=== PATIENT | male | born 1955 | race Caucasian/White ===

== ENCOUNTER 2023-02-01 11:56 | Outpatient (OUT) | payer MEDICARE, OTHER, SELFPAY ==
[2023-02-01 12:37] LABS: Anion Gap 12.7; Calcium 10.3 mg/dL (8.5-10.1); Carbon Dioxide 28.9 mmol/L (21.0-32.0); Chloride 99 mmol/L (98-107); Estimated GFR (African America >60 (>=60); Estimated GFR (Non-African Ame >60 (>=60); Glucose 151 mg/dL (74-106); Potassium 3.6 mmol/L (3.5-5.1); Sodium 137 mmol/L (136-145)
== END 2023-02-01 11:57 | disposition home or self-care (01) ==
LOC: LAB 12:02
PROVIDERS: PCP Family Medicine; Visit Provider Nurse Practitioner Family
DX: I10 Essential (primary) hypertension (principal)
CPT/HCPCS: 36415; 80048

== ENCOUNTER 2023-02-28 09:23 | Outpatient (OUT) | payer MEDICARE, OTHER, SELFPAY ==
--- NOTE | 2023-02-28 09:52 | MR_ITS ---
The [address] [address] Patient Name: CORNEL GIL MRN: [id number] date: 1955 Sex: M Assigned Patient Location: MRI Current Patient Location: MRI Accession/Order Number: [id number] Exam Date: 02/28/2023 09:52 Report Date: 03/01/2023 12:21 At the request of: ALYSA Small APLING Procedure: MR wrist RT wo con HISTORY: Pain along the medial aspect of the right wrist for the past month. No known injury. Internal derangement of right wrist. MR wrist RT wo con: 02/28/2023 9:52 AM EDT COMPARISON: None. TECHNIQUE: Multiplanar, multisequence MRI images of the wrist were obtained. FINDINGS: Several images are degraded by motion artifact. LIGAMENTS AND TFCC: The scapholunate ligament complex and lunotriquetral ligament appear intact. The triangular fibrocartilage complex appears grossly intact. BONES AND JOINTS: The bone marrow signal intensity appears age appropriate. There appear to be at least mild-moderate degenerative changes of the first carpometacarpal joint and probable mild degenerative changes of the triscaphe joint. There is moderate subcortical cystic change involving the fourth metacarpal head/neck at the edge of the egqid-nu-vaze. There appear to be mild to moderate degenerative changes of the triquetrum-pisiform joint and there is a small amount of fluid within the joint and a joint recess proximal to this region. TENDONS: The tendons of the wrist appear grossly within normal limits without evidence of significant tendinopathy or tenosynovitis. CARPAL TUNNEL: The visualized median nerve appears grossly within normal limits and no space-occupying mass is seen in the carpal tunnel. MUSCLES AND SOFT TISSUES: The visualized musculature appears grossly within normal limits in signal intensity. Within the soft tissues along the volar aspect of the radioscaphoid joint deep to the flexor carpi radialis tendon and adjacent to the radial artery there is a mildly loculated cystlike focus. This measures 7 x 9 x 13 mm in AP, transverse, and craniocaudal dimensions respectively. MR/MR wrist RT wo con IMPRESSION: 1. 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 There also appear to be probable mild degenerative changes of the triscaphe joint. 2. No ligament injury or tear of the TFCC is seen. 3. There is a mildly complex ganglion cyst along the volar aspect of the radioscaphoid joint. 4. Please note that several images of this examination are degraded by motion artifact. Electronically authenticated by: CESARIO TOWNSEND Date: 03/01/2023 12:21
== END 2023-02-28 09:24 | disposition home or self-care (01) ==
PROVIDERS: PCP Family Medicine; Visit Provider Nurse Practitioner Family
DX: M24.9 Joint derangement, unspecified (principal); M18.11 Unilateral primary osteoarthritis of first carpometacarpal joint, right hand; M19.041 Primary osteoarthritis, right hand; M67.431 Ganglion, right wrist
CPT/HCPCS: 73221

== ENCOUNTER 2024-04-17 12:25 | Outpatient (OUT) | payer MEDICARE, OTHER, SELFPAY ==
--- OUTSIDE RECORDS SUMMARY | 2024-04-17 12:37 | XMS_ITS | CCD ---
Author Organization [facility] Care Team Providers Care Contact Lens Edge Buffer Name Role Phone JACOB MCKEON Primary Care Unavailable JACOB MCKEON Referring Unavailable ALGHOTHANI, MOHAMAD Admitting Unavailable ALGHOTHANI, MOHAMAD Attending Unavailable JACOB MCKEON Primary Care Unavailable JACOB MCKEON Referring Unavailable MASROOR, JOSE R Admitting Unavailable MASROOR, JOSE R Attending Unavailable JACOB MCKEON Primary Care Unavailable JACOB MCKEON Referring Unavailable MASROOR, JOSE R Admitting Unavailable MASROOR, JOSE R Attending Unavailable JACOB MCKEON Referring Unavailable JACOB MCKEON Primary Care Unavailable MASROOR, JOSE R Admitting Unavailable MASROOR, JOSE R Attending Unavailable Cass Juárez Unavailable Mary Ontiveros Unavailable Jacob Mckeon Unavailable DR CHRIS VILLATORO Consulting Unavailable MCKEON, DR JACOB Jimenez Primary Care Unavailable MCKEON, DR JACOB Jimenez Attending Unavailable MCKEON, DR JACOB Jimenez Admitting Unavailable MCKEON, DR JACOB Jimenez Consulting Unavailable JUAREZ, CINDY Admitting Unavailable JUAREZ, CINDY Consulting Unavailable JUAREZ, CINDY Attending Unavailable LINDA, DR JACOB Jimenez Primary Care Unavailable CARRI, DR ABDI Attending Unavailable JUAREZ, CINDY Consulting Unavailable MCKEON, DR JACOB Jimenez Primary Care Unavailable CARRI, DR ABDI Admitting Unavailable JUAREZ, CINDY Attending Unavailable JUAREZ, CINDY Admitting Unavailable JUAREZ, CINDY Consulting Unavailable LINDA, DR JACOB Jimenez Primary Care Unavailable EDILBERTO, MARCELINO Admitting Unavailable EDILBERTO, MARCELINO Consulting Unavailable MARCELINO STERN Attending Unavailable LINDA, DR JACOB Jimenez Primary Care Unavailable MCKEON, DR JACOB Jimenez Primary Care Unavailable EDILBERTO, MARCELINO Admitting Unavailable EDILBERTO, MARCELINO Attending Unavailable EDILBERTO, MARCELINO Admitting Unavailable EDILBERTO, MARCELINO Attending Unavailable ZIEBSHARI, DR CHRIS Robison Consulting Unavailable MCKEON, DR JACOB Jimenez Primary Care Unavailable EDILBERTO, MARCELINO Consulting Unavailable ALGHOTHANI, MOHAMAD Consulting Unavailable ALGHOTHANI, MOHAMAD Attending Unavailable ALGHOTHANI, MOHAMAD Admitting Unavailable MCKEON, DR JACOB Jimenez Primary Care Unavailable ALGHOTHANI, MOHAMAD Consulting Unavailable ALGHOTHANI, MOHAMAD Attending Unavailable ALGHOTHANI, MOHAMAD Admitting Unavailable MCKEON, DR JACOB Jimenez Primary Care Unavailable REQUEST, DR ISABEL LISTED Consulting Unavaila ble REQUEST, DR ISABEL LISTED Attending Unavaila ble MCKEON, DR JACOB Jimenez Primary Care Unavailable REQUEST, DR ISABEL LISTED Admitting Unavaila ble EDILBERTO, MARCELINO Admitting Unavailable EDILBERTO, MARCELINO Consulting Unavailable MCKEON, DR JACOB Jimenez Primary Care Unavailable EDILBERTO, MARCELINO Attending Unavailable JUAREZ, CINDY Admitting Unavailable JUAREZ, CINDY Consulting Unavailable JUAREZ, CINDY Attending Unavailable MCKEON, DR JACOB Jimenez Primary Care Unavailable APLING, ALYSA Small Attending Unavailable APLING, ALYSA Small Referring Unavailable APLING, ALYSA Small Attending Unavailable BLACKSTONERICA Attending Unavailable APLING, ALYSA Small Referring Unavailable WASHINGTON, LEO Attending Unavailable APLING, ALYSA Small Referring Unavailable BRINK, TESFAYE Attending Unavailable APLING, ALYSA B Referring Unavailable WASHINGTON, LEO Attending Unavailable APLING, ALYSA B Referring Unavailable BRINK, TESFAYE Attending Unavailable APLING, ALYSA B Referring Unavailable JUAREZ, CINDY Attending Unavailable ALGHOTHANI, MOHAMAD Attending Unavailable ALGHOTHANI, MOHAMAD Attending Unavailable Mouchli, Mohamad AJonathan Attending Unavailable JACOB MCKEON Primary Care Physician [phone] Allergies Allergy Classification Reported Allergen(s) Allergy Type Date of Onset Reaction(s) Facility (1 source) patient allergy list reviewed by nurse or physicia Propensity to adverse reactions 4 Comment:Done [employer] Other (1 source) Allergies Reconciled Propensity to adverse reactions Unknown [employer] Other (1 source) No Known Medication Allergies; Translations: [No Known Medication Allergies] Propensity to adverse reactions (disorder) [facility] Repository Medications Current Medications Medication Drug Class(es) Dates Sig (Normalized) Sig (Original) Accu-Chek Guide - (1 source) Accu-Chek Guide - USE TO TEST ONCE A DAY *DX E11.65* for 90 Active [id number] 200 actuat albuterol 0.09 mg/actuat metered dose inhaler (6 sources) beta2-Adrenergic Agonist Start: 10-02-2023 take 2 puff(s) by inhalation every four to six hours as needed Albuterol Sulfate Active 2 PUFF INHALATION EVERY 4-6 HOURS October 02, 2023 1:00am [employer] puffs as needed Inhalation every 4-6 hours; Note: Source Status: Not-Taking\PRN; Refills: 0; Qty: 1 each; Provider: Weston Hernandez Start: 07-25-2022 take 2 puff(s) by in halation every four to six hours as needed Albuterol Sulfate HFA 108 (90 Base) MCG/ACT 2 puffs as needed Inhalation every 4-6 hours for 14 days Jun, Not-Taking/PRN Start: 07-25-2022 take 2 puff(s) by in halation every four to six hours as needed Albuterol Sulfate HFA 108 (90 Base) MCG/ACT 2 puffs as needed Inhalation every 4-6 hours for 14 days Jun, Not-Taking aspirin 81 mg delayed release oral tablet (8 sources) Platelet Aggregation Inhibitor, Nonsteroidal Anti-inflammatory Drug Start: 04-16-2024 take 1 mg by mouth once daily aspirin 81 mg Oral EC Tab mg tab(s), Oral, Daily, Refills(s) 0 Start Date: 04/16/24 Status: Ordered Start: 10-02-2023 take 1 tablet by nahum th once daily Aspirin Active 81 MG PO Daily October 02, 2023 1:00am [employer]: TAKE 1 TABLET BY MOUTH EVERY DAY Oral; Note: Source Status: Taking; Refills: 0; Qty: 90 Each; Provider: EDILBERTO BENSON take 1 tablet by nahum th once daily Aspirin Low Dose 81 MG TAKE 1 TABLET BY MOUTH EVERY DAY Oral for 90 Days Active atorvastatin 80 mg oral tablet (1 source) HMG-CoA Reductase Inhibitor take 1 tablet by mouth once daily Atorvastatin Calcium 80 MG TAKE 1 TABLET BY MOUTH EVERY DAY Oral for 90 Days Active ciprofloxacin 500 mg oral tablet (5 sources) Quinolone Antimicrobial Start: 08-09-19 take 1 tablet by mouth every twelve hours Ciprofloxacin HCl 500 MG 1 tablet Orally every 12 hrs for 10 day(s) Jul, Active clopidogrel 75 mg oral tablet (12 sources) P2Y12 Platelet Inhibitor Start: 04-16-20 take 1 mg by mouth once daily Plavix 75 mg Tab mg tab(s), Oral, Daily, Refills(s) 0 Start Date: 04/16/24 Status: Ordered Start: 10-02-2023 take 1 tablet by nahum th once daily Clopidogrel Active 75 MG PO Daily October 02, 2023 1:00am [employer] tablet Orally Once a day; Note: Source Status: Taking; Provider: Linda Flanagan ( ) take 1 tablet by nahum th every twenty-four hours Clopidogrel Bisulfate 75 MG 1 tablet Orally Once a day Active Plavix Not-Takin g/PRN Plavix Not-Takin g furosemide 20 mg oral tablet (2 sources) Loop Diuretic Start: 04-16-2024 take 1 mg by mouth once daily Lasix 20 mg Tab mg tab(s), Oral, Daily, Refills(s) 0 Start Date: 04/16/24 Status: Ordered Start: 10-03-2023 take 20 mg by mouth once daily Furosemide Active 20 MG PO Daily October 03, 2023 1:00am glipiZIDE er 10 mg 24 hr extended release oral tablet (11 sources) Sulfonylurea Start: 04-16-2024 take 1 mg by mouth once daily glipiZIDE 10 mg ER Tab mg tab(s), Oral, Daily, Refills(s) 0 Start Date: 04/16/24 Status: Ordered Start: 12-31-2023 End: 03-23-2024 take 1 tablet by mouth once daily Glipizide Active 0 .ROUTE .COMPLEX March 23, 2024 3:40pm TAKE 1 TABLET BY MOUTH EVERY DAY Start: 10-03-2023 End: 12-31-2023 take 10 mg by mouth once daily Glipizide Discontinued 10 MG PO Daily October 03, 2023 1:00am December 31, 2023 3:39pm Start: 10-02-2023 End: 10-03-2023 take 1 tablet by mouth once daily Glipizide Discontinued 1 TAB PO Daily October 02, 2023 1:00am October 03, 2023 10:27pm Free[employer]: TAKE 1 TABLET BY MOUTH EVERY DAY; Note: Source Status: Start; Refills: 3; Qty: 90 Tablet; Provider: Linda Flanagan ( ) take 1 tablet by nahum th once daily glipiZIDE 5 MG TAKE 1 TABLET BY MOUTH EVERY DAY for 90 Active glipiZIDE Active Inulin / Lactobacillus rhamnosus GG (1 source) Start: 09-16-2018 [facility] Oral, Daily, Refill(s) 0, Prophylaxis Start Date: 09/16/18 Status: Ordered latanoprost 0.05 mg/ml ophthalmic solution (1 source) Prostaglandin Analog Start: 09-16-2018 latanoprost 0.005% preservative-free ophthalmic solution Eye-Right, Daily, Refill(s) 0, Ocular congestion Start Date: 09/16/18 Status: Ordered lisinopril 40 mg oral tablet (7 sources) Angiotensin Converting Enzyme Inhibitor Start: 10-02-2023 take 1 tablet by mouth once daily in the morning Lisinopril Active 1 TAB PO Every morning October 02, 2023 1:00am FreeText[employer]: TAKE 1 TABLET BY MOUTH EVERY DAY IN THE MORNING; Note: Source Status: Taking; Refills: 3; Qty: 90 Tablet; Provider: Linda Flanagan ( ) Start: 09-16-2018 take 20 mg by mouth once daily lisinopril 20 mg, Oral, Daily, Refills(s) 0, High blood pressure Start Date: 09/16/18 Status: Ordered take 1 tablet by nahum th once daily in the morning Lisinopril 40 MG TAKE 1 TABLET BY MOUTH EVERY DAY IN THE MORNING for 90 Active 24 hr metoprolol succinate 100 mg extended release oral tablet (8 sources) beta-Adrenergic Taylor Start: 04-16-2024 take 1 mg by mouth once daily metoprolol succinate 100 mg ER Tab mg tab(s), Oral, Daily, Refills(s) 0 Start Date: 04/16/24 Status: Ordered Start: 10-02-2023 Metoprolol Tar trate Active MG PO October 02, 2023 1:00am [employer]: Oral; Note: Source Status: Taking; Qty: 180 Tablet; Provider: Linda Flanagan ( ) Metoprolol Tartr ate 50 MG Oral for 90 Days Active omeprazole 40 mg delayed release oral capsule (9 sources) Proton Pump Inhibitor Start: 03-23-2024 take 1 capsule by mouth once daily Omeprazole Active 0 .ROUTE .COMPLEX March 23, 2024 3:40pm TAKE 1 CAPSULE BY MOUTH EVERY DAY Start: 10-02-2023 End: 03-23-2024 take 1 capsule by mouth once daily Omeprazole Discontinued 1 CAP PO Daily October 02, 2023 1:00am March 23, 2024 3:40pm FreeText[employer]: TAKE 1 CAPSULE BY MOUTH EVERY DAY; Note: Source Status: Taking; Refills: 3; Qty: 90 Capsule; Provider: Linda Flanagan ( ) Start: 09-16-2018 take 40 mg by mouth once daily omeprazole 40 mg, Oral, Daily, Refills(s) 0, Control of stomach acid Start Date: 09/16/18 Status: Or[facility] Omeprazole 40 MG TAKE 1 CAPSULE BY MOUTH EVERY DAY for 90 Active spironolactone 25 mg oral tablet (6 sources) Aldosterone Antagonist Start: 10-02-2023 take 25 mg by mouth twice daily Spironolactone Active 25 MG PO Twice daily October 02, 2023 1:00am FreeText[employer]: twice a day; Note: Source Status: Taking; Provider: Linda Flanagan ( ) Spironolactone 2 5 MG twice a day Active tadalafil (8 sources) Phosphodiesterase 5 Inhibitor Start: 03-23-2024 take 1 tablet by mouth once daily Tadalafil Active 0 .ROUTE .COMPLEX March 23, 2024 3:40pm TAKE 1 TABLET BY MOUTH DAILY Start: 10-02-2023 End: 03-23-2024 take 1 tablet by mouth once daily Tadalafil Discontinued 1 TAB PO Daily October 02, 2023 1:00am March 23, 2024 3:40pm FreeTextSig: TAKE ONE TABLET BY MOUTH DAILY; Note: Source Status: Taking; Refills: 3; Qty: 90 Tablet; Provider: Linda Flanagan ( ) Start: 09-16-2018 Cialis 5 mg, O ral, q72hr, Refills(s) 0, Erectile dysfunction Start Date: 09/16/18 Status: Ordered take 1 tablet by nahum th once daily Tadalafil 5 MG TAKE ONE TABLET BY MOUTH DAILY for 90 Active Completed/Discontinued Medications Medication Drug Class(es) Dates Sig (Normalized) Sig (Original) predniSONE 20 mg oral tablet (5 sources) Start: 07-25-2022 take 1 tablet by mouth every twelve hours prednisone 20 MG 1 tablet Orally BID for 5 days Jun, Not-Taking/PRN Problems Active Problems Problem Classification Problem Date Documented Date Episodic/Chronic Abdominal hernia (4 sources) Umbilical hernia without obstruction or gangrene; Translations: [Ventral hernia without obstruction or gangrene] Onset: 08-28-2022 Episodic Abdominal pain (20 sources) Abdominal pain; Translations: [Unspecified abdominal pain] Onset: 06-09-2013 Episodic Bacterial infection; unspecified site (5 sources) Bacterial infectious disease; Translations: [Other specified bacterial agents as the cause of diseases classified elsewhere] Episodic Chronic obstructive pulmonary disease and bronchiectasis (6 sources) Bronchitis; Translations: [Bronchitis, not specified as acute or chronic] Episodic Coronary atherosclerosis and other heart disease (14 sources) Coronary arteriosclerosis; Translations: [Atherosclerotic heart disease of [place] coronary artery without angina pectoris] Onset: 05-23-2022 Chronic Diabetes mellitus with complications (9 sources) Hyperglycemia due to type 2 diabetes mellitus; Translations: [Type 2 diabetes mellitus with hyperglycemia] Chronic Disorders of lipid metabolism (9 sources) Hyperlipidemia; Translations: [Hyperlipidemia, unspecified] Onset: 11-15-2022 Chronic Diverticulosis and diverticulitis (8 sources) Diverticulitis; Translations: [Diverticulitis of intestine, part unspecified, without perforation or abscess without bleeding] Onset: 06-26-2018 Chronic Esophageal disorders (2 sources) Gastroesophageal reflux disease without esophagitis; Translations: [Gastro-esophageal reflux disease without esophagitis] Onset: 04-16-2024 Chronic Essential hypertension (18 sources) Essential hypertension; Translations: [Essential (primary) hypertension] Onset: 11-06-2013 Chronic Hyperplasia of prostate (1 source) Benign prostatic hypertrophy without outflow obstruction; Translations: [Hypertrophy (benign) of prostate without urinary obstruction and other lower urinary tract symptoms [LUTS]] Onset: 09-23-2015 Chronic Immunizations and screening for infectious disease (6 sources) Contact with and (suspected) exposure to other viral communicable diseases; Translations: [Exposure to viral disease (event)] Episodic Noninfectious gastroenteritis (1 source) Noninfective gastroenteritis and colitis, unspecified Episodic Osteoarthritis (1 source) Primary localized osteoarthrosis of multiple sites; Translations: [Generalized osteoarthrosis, involving multiple sites] Onset: 11-06-2013 Chronic Other and unspecified benign neoplasm (1 source) History of polyp of colon; Translations: [Personal history of colonic polyps] Onset: 04-16-2024 Episodic Other circulatory disease (1 source) Elevated blood-pressure reading without diagnosis of hypertension; Translations: [Elevated blood-pressure reading, without diagnosis of hypertension] Episodic Other lower respiratory disease (5 sources) Dyspnea on exertion; Translations: [Other forms of dyspnea] Episodic Other lower respiratory disease (1 source) Shortness of breath; Translations: [SHORTNESS OF BREATH] Onset: 11-15-2022 Episodic Other lower respiratory disease (1 source) Dyspnea; Translations: [Other forms of dyspnea] Episodic Other male genital disorders (1 source) Male erectile dysfunction, unspecified; Translations: [Erectile dysfunction (disorder)] Onset: 09-23-2015 Chronic Other nutritional; endocrine; and metabolic disorders (6 sources) Body mass index 30+ - obesity; Translations: [Body mass index (BMI) 35.0-35.9, adult] Onset: 05-12-2018 Chronic Other nutritional; endocrine; and metabolic disorders (2 sources) Obese class II; Translations: [Body mass index 37.0-37.9, adult] Onset: 06-06-2017 Chronic Other nutritional; endocrine; and metabolic disorders (1 source) Hypercalcemia; Translations: [Hypercalcemia] Onset: 03-25-2017 Chronic Other nutritional; endocrine; and metabolic disorders (1 source) Obesity; Translations: [Other obesity due to excess calories] Onset: 04-16-2024 Chronic Other nutritional; endocrine; and metabolic disorders (1 source) Obesity caused by energy imbalance 04-16-2024 Chronic Other screening for suspected conditions (not mental disorders or infectious disease) (6 sources) Echocardiogram abnormal; Translations: [Abnormal result of other cardiovascular function study] Episodic Other skin disorders (1 source) Generalized hyperhidrosis; Translations: [GENERALIZED HYPERHIDROSIS] Onset: 11-26-2022 Episodic Other skin disorders (1 source) Disorder of sweat gland; Translations: [Eccrine sweat disorder, unspecified] Episodic Other upper respiratory infections (6 sources) Bacterial sinusitis; Translations: [Chronic sinusitis, unspecified] Onset: 08-02-2016 Chronic Past or Other Problems Problem Classification Problem Date Documented Da te Episodic/Chronic Acute bronchitis (2 sources) Acute bronchitis; Translations: [Acute bronchitis] Onset: 06-28-2015 Episodic Administrative/social admission (1 source) Family problems; Translations: [Unspecified family circumstance] Onset: 01-16-2018 Episodic Coronary atherosclerosis and other heart disease (3 sources) Presence of aortocoronary bypass graft; Translations: [PRESENCE AORTOCORONARY BYPASS GRAFT] Onset: 05-23-2022 Episodic Diabetes mellitus without complication (1 source) Abnormal glucose level; Translations: [Other abnormal glucose] Onset: 06-24-2015 Episodic Malaise and fatigue (2 sources) Other fatigue; Translations: [Malaise and fatigue] Onset: 03-14-2017 Episodic Other gastrointestinal disorders (1 source) Diarrhea; Translations: [Diarrhea] Onset: 08-25-2018 Episodic Other injuries and conditions due to external causes (1 source) Injury of male external genital organs; Translations: [Other specified disorder of male genital organs] Onset: 06-06-2017 Episodic Other lower respiratory disease (3 sources) Other forms of dyspnea; Translations: [OTHER FORMS OF DYSPNEA] Onset: 04-13-2022 Episodic Other non-traumatic joint disorders (1 source) Joint pain; Translations: [Pain in unspecified joint] Onset: 08-15-2016 Episodic Other upper respiratory infections (4 sources) Acute upper respiratory infection, unspecified; Translations: [Acute pharyngitis, unspecified] Onset: 07-26-2014 Episodic Residual codes; unclassified (1 source) C/O - a back symptom; Translations: [Other symptoms referable to back] Onset: 08-25-2018 Episodic Unclassified (2 sources) Cough, unspecified type R05.9 Onset: 02-28-2022 Resolved: 02-28-2022 Viral infection (6 sources) COVID-19; Translations: [Disease caused by 2019-nCoV] Onset: 02-28-2022 Resolved: 02-28-2022 Results Test Name Value Interpretation Reference Range Facility Office Visiton 11-05-2023 Follow-up visit [id number] Oswald Ochoa 1955 M Date Provider Department Center 11/05/2023 384ALISSA FRIEDMAN SOHAIL [facility] No family history on file Level of Service:74007 IN OFFICE/OUTPATIENT ESTABLISHED LOW MDM 20 MIN Reason for Visit and Comments: Follow-up [738841] - 6 month follow up Normal [facility] Office [facility] 05-08-2023 Follow-up visit [id number] Oswald Ochoa 1955 M Date Provider Department Center 05/08/2023 CINDY ALTAMIRANO SOHAIL [facility] No family history on file Level of Service:53728 IN OFFICE/OUTPATIENT ESTABLISHED MOD MDM 30-39 MIN Normal [facility] Office [facility] 02-01-2023 Follow-up visit [id number] Oswald Ochoa 1955 M Date Provider Department [facility] No family history on file Level of Service:66041 IN OFFICE/OUTPATIENT ESTABLISHED LOW MDM 20-29 MIN Normal [facility] PROF CHEM 8 (BAS METB)on Anion gap [Moles/Vol] 16.3 mmol/L Normal [facility] Comment on above: Performed By: #### B MP ####[facility] [id number] [place] [address]Dr. Mely Mayes Calcium [Mass/Vol] 9.4 mg/dL Normal 8.5-10.1 [facility] Comment on above: Performed By: #### B MP ####[facility] [id number] [place] [address]Dr. Mely Mayes Chloride [Moles/Vol] 98 mmol/L Normal 98-107 [facility] Comment on above: Performed By: #### B MP ####[facility] [id number] [place] [address]Dr. Mely Mayes CO2 [Moles/Vol] 26.0 mmol/L Normal 21.0-32.0 [facility] Comment on above: Performed By: #### B MP ####[facility] [address] [place] [id number]. Mely Mayes Creatinine [Mass/Vol] 1.36 mg/dL Critically high 0.70-1.30 [facility] Comment on above: Performed By: #### B MP ####[facility] [id number] [place] [id number]. Mely Mayes EGFR-AF NIGERIEN >60 Normal >=60 [facility] Comment on above: Performed By: #### B MP ####[facility] [id number] [place] [id number]. Mely Mayes EGFR-NON AF NIGERIEN 52 mL/min/1.73m2 Critically low >=60 [facility] Comment on above: Performed By: #### B MP ####[facility] [address] [place] [id number]. Mely Mayes Glucose [Mass/Vol] 211 mg/dL Critically high 74-106 [facility] Comment on above: Performed By: #### B MP ####[facility] [address] [place] [id number]. Mely Mayes Potassium [Moles/Vol] 4.3 mmol/L Normal 3.5-5.1 [facility] Comment on above: Performed By: #### B MP ####[facility] [id number] [place] [id number]. Mely Mayes Sodium [Moles/Vol] 136 mmol/L Normal 136-145 [facility] Comment on above: Performed By: #### B MP ####[facility] [id number] [place] [id number]. Mely Mayes Urea nitrogen [Mass/Vol] 10.0 mg/dL Normal 7.0-18.0 [facility] Comment on above: Performed By: #### B MP ####[facility] [id number] [place] [id number]. Mely Mayes Urea nitrogen/Creatinine [Mass ratio] 7.4 mg/mg Normal [facility] Comment on above: Performed By: #### B MP ####[facility] [address] [place], [place] [address]Yw. Mely Mayes ECHOCARDIO M/2D COMPLETEon 0 11-20-2022 ECHOCARDIO M/2D COMPLETE Patient: OSWALD OCHOA Exam Date: 11/20/2022 : 1955 Gender:M Ordering : [facility] Admission #: [id number] Family : Order #: [id number] CLICK HERE TO VIEW EXAM ECHOCARDIOGRAM REPORT PROCEDURE: CARDIO PULMONARY ECHOCARDIO M/2D COMP INDICATIONS: CAD, Fatigue, Diaphoresis, WHITNEY COMPARISON: None. DESCRIPTION: COMPLETE ECHOCARDIOGRAM Real-time transthoracic echocardiography with 2D, M-mode, spectral and color flow Doppler performed. QUALITY: Technical quality was adequate. LEFT VENTRICLE: Normal chamber size. Normal left ventricular wall thickness. LV EF: Global left ventricular systolic function is normal. Visual estimation of left ventricular ejection fraction is 55%. DIASTOLIC: Diastolic function is indeterminate. ATRIAL SEPTUM: Inadequately seen. LEFT ATRIUM: Normal chamber size. RIGHT ATRIUM: Mild dilatation. RIGHT VENTRICLE: Mild dilatation. Decreased right ventricular systolic function. TRICUSPID VALVE: Normal mobility and thickness. No stenosis with mild to moderate regurgitation. Mild pulmonary hypertension. RVSP 39mmHg MITRAL VALVE: Normal mobility and thickness. No mitral valve prolapse. No evidence of mitral valve stenosis. There is no mitral annular calcification. Trivial mitral regurgitation. AORTIC VALVE: Normal trileaflet appearance. Normal leaflet mobility. No evidence of aortic valve stenosis. No aortic regurgitation. AORTIC ROOT: Normal diameter and appearance. PULMONIC VALVE: Normal thickness and mobility. No stenosis. Trivial regurgitation. PERICARDIUM: No evidence of pericardial effusion. IVC: Collapses with inspirations. CONCLUSION: Global left ventricular systolic function is normal; visually estimated ejection fraction is 55 to 60%. No regional wall motion abnormalities. Diastolic function is indeterminate. The right atrium is mildly dilated. The right ventricle is mildly dilated with reduced systolic function. Mild to moderate tricuspid regurgitation. Mildly elevated right-sided pressures. Adult Echocardiography Procedure Report Left Ventricle LVEDD (3.7 - 5.6 cm): 4.88 cm LVESD (2.2 - 4.0 cm): 3.13 cm LVIVS thickness (0.6 - 1.2 cm): 1.04 cm LVPW thickness (0.5 - 1.0 cm): 0.99 cm e': 0.08 m/s E - e': 7.51 LVOT Max Gradient: 4.45 mm[Hg] Peak Velocity (LVOT): 1.05 m/s Mean Velocity (LVOT): 0.61 m/s LVOT Diameter 2.14 cm Left Ventricular Ejection Fraction: 65.31 %, 65.31 % Left Atrium LA Volume Index (2D A2C): 68.52 ml, 68.52 ml Left Atrium Systolic Dimension: 3.44 cm Mitral Valve MV E to A Ratio: 0.84 Mitral Valve A-Wave Peak Velocity: 0.74 m/s Mitral Valve E-Wave Peak Velocity: 0.63 m/s Right Ventricle RV Internal Diastolic Dimension: 4.04 cm Aorta AO Root Diam: 3.31 cm Ascending Ao Diam: 2.64 cm Aortic Valve AoV Area (Peak Joao): 3.38 cm2, 3.38 cm2 AoV Area (VTI): 3.83 cm2, 3.83 cm2 Peak Velocity(Antegrade Flow): 1.12 m/s Peak Gradient(Antegrade Flow): 5.06 mm[Hg] Mean Velocity(Antegrade Flow): 0.75 m/s Mean Gradient(Antegrade Flow): 2.65 mm[Hg] Velocity Time Integral: 21.53 cm Tricuspid Valve Peak Velocity (Regurgitant Flow): 2.49 m/s, 2.07 m/s, 2.99 m/s Peak Velocity: 0.46 m/s Pulmonic Valve Mean Gradient: 3.41 mm[Hg] Mean Velocity: 0.87 m/s Peak Velocity: 1.24 m/s, 1.22 m/s Peak Gradient: 6.18 mm[Hg], 5.99 mm[Hg] Right Atrium Right Atrium Systolic Pressure: 92.67 ml, 92.67 ml Dictated by: Katia Mcdaniel M.D. on 11/21/2022 at 08:23 Approved by: Katia Mcdaniel M.D. on 11/21/2022 at 08:25 [facility] NM STRESS/REST MULTIon 11-20 NM STRESS/REST MULTI Patient: OSWALD OCHOA Exam Date: 11/20/2022 : 1955 Gender:M Ordering : [facility] Admission #: [id number] Family : Order #: [id number] CLICK HERE TO VIEW EXAM RADIOLOGY REPORT PROCEDURE: RADIONUCLIDE IMAGING STRESS/REST MULTI COMPARISON: NM STRESS/REST MULTI, 11/30/2021. INDICATIONS: Dyspnea on exertion TECHNIQUE: Exam Description: Stress/Rest two day protocol gated SPECT Rest Imagin.8 mCi Tc-99m Cardiolite IV on 11/20/2022 Stress Imaging 25.4 mCi Tc-99m Cardiolite IV on 11/22/2022 Exercise Protocol: Flavio Heart Rate (bpm): Rest: 79 Max: 146 PMHR: 96 Blood Pressure: Rest: 136/82 Max: 156/80 Exercise Time: Minutes: 2 Seconds: 10 Stage Reached: Stage: 1 Mets 4.6 Symptoms: Rest and peak stress ECG findings were normal and the exercise portion of the study was normal per attending physician Dr. Sidney Wallace . For more details please see separate cardiac stress test report. FINDINGS: QUALITY OF STUDY: Excellent. PERFUSION DEFECT: None. LOCATION: N/A SIZE: N/A. SEVERITY: N/A. TYPE: N/A. WALL MOTION: Normal. LV SIZE: Normal. 74 mL. TID / TCD: None; 1.1 LVEF: Normal. Calculated EF 72%. SUMMARY: Myocardial perfusion imaging study is NORMAL. CONCLUSION: 1. Normal nuclear medicine myocardial perfusion scan. Dictated by: Chris Villatoro M.D. on 11/22/2022 at 16:09 Approved by: Chris Villatoro M.D. on 11/22/2022 at 16:12 Normal [facility] BNPon 11-12-2022 Natriuretic peptide B (Bld) [Mass/Vol] 207.0 pg/mL Normal <=900.0 [facility] Comment on above: Performed By: #### L IPID, BNP, CMP #### [facility] [address] [place] [address] Dr. Mely Mayes LIPID PROFILEon 11-12-2022 CHOL-HDL RATIO NORM SEE BELOW Normal [facility] Comment on above: Result Comment: 3.3 - 4.4 LOW RISK 4.4 - 7.1 AVERAGE RISK 7.1 - 11.0 MODERATE RISK >11.0 HIGH RISK Performed By: #### L IPID, BNP, CMP #### [facility] [address] [address] [address] Mely Mayes Cholesterol [Mass/Vol] 166 mg/dL Normal <=200 [facility] Comment on above: Performed By: #### L IPID, BNP, CMP #### [facility] [address] [address] [address] Mely Mayes Cholesterol in HDL [Mass/Vol] 38 mg/dL Critically low 40-60 [facility] Comment on above: Performed By: #### L IPID, BNP, CMP #### [facility] [address] [address] [address] Mely Mayes Cholesterol in LDL [Mass/Vol] 106.2 mg/dL Normal [facility] Comment on above: Performed By: #### L IPID, BNP, CMP #### [facility] [address] [address] [address] Mely Mayes Cholesterol.total/C holesterol in HDL [Mass ratio] 4.4 {ratio} Normal [facility] Comment on above: Performed By: #### L IPID, BNP, CMP #### [facility] [address] [address] [address] Mely Mayes HDL NORMAL > or = 60 mg/dl - LO W CARDIOVASCULAR RISK <40 mg/dl - HIGH CARDIOVASCULAR RISK Normal [facility] Comment on above: Performed By: #### L IPID, BNP, CMP #### [facility] [address] [address] [address] Mely Mayes LDL CALC NORMAL SEE BELOW Normal [facility] Comment on above: Result Comment: <100 mg/dl OPTIMAL 100 - 129 mg/dl NEAR OR ABOVE OPTIMAL 130 - 159 mg/dl BORDERLINE HIGH 160 - 189 mg/dl HIGH >190 mg/dl VERY HIGH Performed By: #### L IPID, BNP, CMP #### [facility] [address] [address] [address] Mely Mayes Triglyceride [Mass/Vol] 109 mg/dL Normal <=150 [facility] Comment on above: Performed By: #### L IPID, BNP, CMP #### [facility] [address] [address] [address] Mely Mayes VLDL CALC 21.8 mg/dL Normal [facility] Comment on above: Performed By: #### L IPID, BNP, CMP #### [facility] [address] [address] [address] Mely Mayes PROF 14(COMP METB)on 023 Albumin [Mass/Vol] 4.1 g/dL Normal 3.4-5.0 [facility] Comment on above: Performed By: #### L IPID, BNP, CMP #### [facility] [address] [address] [address] Mely Mayes Albumin/Globulin [Mass ratio] 1.1 {ratio} Normal [facility] Comment on above: Performed By: #### L IPID, BNP, CMP #### [facility] [address] [place] [address] Dr. Mely Mayes ALP [Catalytic activity/Vol] 79 U/L Normal 46-116 [facility] Comment on above: Performed By: #### L IPID, BNP, CMP #### [facility] [address] [place] [address] Dr. Mely Mayes ALT [Catalytic activity/Vol] 36 U/L Normal 16-63 [facility] Comment on above: Performed By: #### L IPID, BNP, CMP #### [facility] [address] [place] [address] Dr. Mely Mayes Anion gap [Moles/Vol] 13.7 mmol/L Normal [facility] Comment on above: Performed By: #### L IPID, BNP, CMP #### [facility] [address] [place] [address] Dr. Mely Mayes AST [Catalytic activity/Vol] 18 U/L Normal 15-37 [facility] Comment on above: Performed By: #### L IPID, BNP, CMP #### [facility] [address] [place] [address] Dr. Mely Mayes Bilirubin [Mass/Vol] 0.6 mg/dL Normal 0.2-1.0 [facility] Comment on above: Performed By: #### L IPID, BNP, CMP #### [facility] [address] [address] [address] Mely Mayes Calcium [Mass/Vol] 10.3 mg/dL Critically high 8.5-10.1 [facility] Comment on above: Performed By: #### L IPID, BNP, CMP #### [facility] [address] [place] [address] Dr. Mely Mayes Chloride [Moles/Vol] 101 mmol/L Normal 98-107 [facility] Comment on above: Performed By: #### L IPID, BNP, CMP #### [facility] [address] [place] [address] Dr. Mely Mayes CO2 [Moles/Vol] 27.5 mmol/L Normal 21.0-32.0 [facility] Comment on above: Performed By: #### L IPID, BNP, CMP #### [facility] [address] [place] [address] Dr. Mely Mayes Creatinine [Mass/Vol] 1.17 mg/dL Normal 0.70-1.30 [facility] Comment on above: Performed By: #### L IPID, BNP, CMP #### [facility] [address] [place] [address] Dr. Mely Mayes EGFR-AF NIGERIEN >60 Normal >=60 [facility] Comment on above: Performed By: #### L IPID, BNP, CMP #### [facility] [address] [place] [address] Dr. Mely Mayes EGFR-NON AF NIGERIEN >60 Normal >=60 [facility] Comment on above: Performed By: #### L IPID, BNP, CMP #### [facility] [address] [place] [address] Dr. Mely Mayes Globulin (S) [Mass/Vol] 3.7 g/dL Normal [facility] Comment on above: Performed By: #### L IPID, BNP, CMP #### [facility] [address] [place] [address] Dr. Mely Mayes Glucose [Mass/Vol] 168 mg/dL Critically high 74-106 T [facility] Comment on above: Performed By: #### L IPID, BNP, CMP #### [facility] [address] [address] [address] Mely Mayes Potassium [Moles/Vol] 4.2 mmol/L Normal 3.5-5.1 [facility] Comment on above: Performed By: #### L IPID, BNP, CMP #### [facility] [address] [address] [address] Mely Mayes Protein [Mass/Vol] 7.8 g/dL Normal 6.4-8.2 [facility] Comment on above: Performed By: #### L IPID, BNP, CMP #### [facility] [address] [place] [address] Dr. Mely Mayes Sodium [Moles/Vol] 138 mmol/L Normal 136-145 [facility] Comment on above: Performed By: #### L IPID, BNP, CMP #### [facility] [address] [place] [address] Dr. Mely Mayes Urea nitrogen [Mass/Vol] 10.0 mg/dL Normal 7.0-18.0 [facility] Comment on above: Performed By: #### L IPID, BNP, CMP #### [facility] [address] [place] [address] Dr. Mely Mayes Urea nitrogen/Creatinine [Mass ratio] 8.5 mg/mg Normal [facility] Comment on above: Performed By: #### L IPID, BNP, CMP #### [facility] [address] [place] [address] Dr. Mely Mayes PROF CHEM 8 (BAS METB)on Anion gap [Moles/Vol] 14.7 mmol/L Normal [facility] Comment on above: Performed By: #### B MP ####[facility] [address] [address]Dr. Mely Mayes Calcium [Mass/Vol] 9.4 mg/dL Normal 8.5-10.1 [facility] Comment on above: Performed By: #### B MP ####[facility] [address] [id number]. Mely Mayes Chloride [Moles/Vol] 99 mmol/L Normal 98-107 [facility] Comment on above: Performed By: #### B MP ####[facility] [address] [id number]. Mely Mayes CO2 [Moles/Vol] 23.5 mmol/L Normal 21.0-32.0 [facility] Comment on above: Performed By: #### B MP ####[facility] [address] [address]Dr. Mely Mayes Creatinine [Mass/Vol] 1.53 mg/dL Critically high 0.70-1.30 [facility] Comment on above: Performed By: #### B MP ####[facility] [address] [place], [place] [address]Dr. Mely Mayes EGFR-AF NIGERIEN 55 mL/min/1.73m2 Critically low >=60 [facility] Comment on above: Performed By: #### B MP ####[facility] [address] [place], [place] [address]Dr. Mely Gerber EGFR-NON AF NIGERIEN 45 mL/min/1.73m2 Critically low >=60 [facility] Comment on above: Performed By: #### B MP ####[facility] [address] [address]Dr. Leigh Anndayana Mayes Glucose [Mass/Vol] 258 mg/dL Critically high 74-106 [facility] Comment on above: Performed By: #### B MP ####[facility] [address] [address]Dr. Mely Mayes Potassium [Moles/Vol] 4.2 mmol/L Normal 3.5-5.1 [facility] Comment on above: Performed By: #### B MP ####[facility] [address] [place], [place] [address]Dr. Mely Mayes Sodium [Moles/Vol] 133 mmol/L Critically low 136-145 [facility] Comment on above: Performed By: #### B MP ####[facility] [address] [place], [place] [address]Va. Mely Mayes Urea nitrogen [Mass/Vol] 11.0 mg/dL Normal 7.0-18.0 [facility] Comment on above: Performed By: #### B MP ####[facility] [address] [place], [place] [address]Py. Mely Mayes Urea nitrogen/Creatinine [Mass ratio] 7.2 mg/mg Normal [facility] Comment on above: Performed By: #### B MP ####[facility] [address] [place], [place] [address]Yy. Mely Mayes CREATININEon 08-24-2022 Creatinine [Mass/Vol] 1.02 mg/dL Normal 0.70-1.30 [facility] Comment on above: Performed By: #### C GRAEME #### [facility] [address] [address] [address] Mely Mayes EGFR-AF NIGERIEN >60 Normal >=60 [facility] Comment on above: Performed By: #### C GRAEME #### [facility] [address] [address] [address] Mely Mayes EGFR-NON AF NIGERIEN >60 Normal >=60 [facility] Comment on above: Performed By: #### C GRAEME #### [facility] [address] [address] [address] ABD/PELV W CONon 08-24-19 CT ABD/PELV W CON EXAMINATION: CT ABD/PELV W CON HISTORY: Abdominal colic ; lower abdominal pain and diarrhea for 3 weeks COMPARISON: No relevant comparison available. TECHNIQUE: Axial, Coronal, and Sagittal images were obtained without and/or with IV contrast as indicated by examination type. Dose reduction techniques were achieved by using automated exposure control and/or adjustment of mA and/or kV according to patient size and/or use of iterative reconstruction technique. FINDINGS: LUNG BASES: No visible pulmonary or pleural disease. LIVER: No enlargement, atrophy, suspicious density, or significant focal lesion. BILIARY: Cholecystectomy. PANCREAS: No lesion, fluid collection, or abnormal duct dilatation. SPLEEN: No enlargement or focal lesion. ADRENALS: No mass or enlargement. KIDNEYS: Stable benign-appearing right renal cysts. Nonobstructing stones within left kidney, largest is 8 mm. BOWEL/MESENTERY: Moderate size hiatal hernia. Multiple diverticula scattered along the length of colon without acute inflammatory changes. Prior mid sigmoid resection and anastomosis. No visible mass, obstruction, or bowel wall thickening. AORTA/VASCULAR: No aneurysm or dissection. Moderate atherosclerotic disease. RETROPERITONEUM: No mass or adenopathy. LYMPH NODES: No adenopathy. URINARY BLADDER: No visible focal wall thickening, lesion, or calculus. PELVIC ORGANS: No visible mass. Pelvic organs appropriate for patient age. ABDOMINAL WALL: Eventration versus developing hernia within the left anterior abdominal wall, 9 cm lateral to the umbilicus, containing small bowel. Tiny umbilical hernia containing a single loop of nonobstructed small bowel. BONES: L5-S1 marked degenerative disc disease. OTHER: Negative. IMPRESSION: 1.Colonic diverticulosis. No acute or suspicious findings to account for patient's symptoms . 2.Tiny umbilical hernia and developing left anterior abdominal wall hernia. Both containing small bowel without strangulation or obstruction. Electronically authenticated by: CHRIS VILLATORO Date: 2022-08-24 09:22 Normal [facility] GLYCOHEMOGLOBIN A1Con 2022 ADA RECOMMENDATION SEE BELOW Normal [facility] Comment on above: Result Comment: ADA RECOMMENDED LIMIT 4.0 - 6.0 ADA THERAPEUTIC TARGET < 7.0 ACTION SUGGESTED > 7.0 Performed By: #### D ATA1C #### [facility] [address] [address] [address] Mely Mayes Glucose [Mass/Vol] 163 mg/dL Normal [facility] Comment on above: Performed By: #### D ATA1C #### [facility] [address] [place], [place] [address] Dr. Mely Mayes HbA1c (Bld) [Mass fraction] 7.3 % Critically high 4.5-6.2 [facility] Comment on above: Performed By: #### D ATA1C #### [facility] [address] [place], [place] [address] Dr. Mely Mayes COVID/FLU/RSV RT-PCRon 07-25 SARS-CoV-2 (COVID-19) RNA ESTEBAN+probe Ql (Unsp spec) Negative [facility] [employer] Other COVID/FLU/RSV RT-PCR Negative [employer] [facility] [employer] Other Quick Strepon 07-25-2022 S. pyogenes Org specific cx Ql (Throat) Negative [facility] [employer] Other Quick Strep [facility] [employer] Other PROF CHEM 8 (BAS METB)on Anion gap [Moles/Vol] 11.0 mmol/L Normal [facility] Comment on above: Performed By: #### B MP ####[facility] [address] [place], [place] [address]Dr. Mely Mayes Calcium [Mass/Vol] 9.2 mg/dL Normal 8.5-10.1 [facility] Comment on above: Performed By: #### B MP ####[facility] [address] [place], [place] [address]Dr. Mely Mayes Chloride [Moles/Vol] 102 mmol/L Normal 98-107 [facility] Comment on above: Performed By: #### B MP ####[facility] [address] [place], [place] [address]Dr. Mely Mayes CO2 [Moles/Vol] 27.7 mmol/L Normal 21.0-32.0 [facility] Comment on above: Performed By: #### B MP ####[facility] [address] [place], [place] [address]Dr. Mely Mayes Creatinine [Mass/Vol] 1.00 mg/dL Normal 0.70-1.30 [facility] Comment on above: Performed By: #### B MP ####[facility] [address] [place], [place] [address]Dr. Mely Mayes EGFR-AF NIGERIEN >60 Normal >=60 [facility] Comment on above: Performed By: #### B MP ####[facility] [address] [place], [place] [address]Dr. Mely Mayes EGFR-NON AF NIGERIEN >60 Normal >=60 [facility] Comment on above: Performed By: #### B MP ####[facility] [address] [id number]. Mely Mayes Glucose [Mass/Vol] 139 mg/dL Critically high 74-106 T [facility] Comment on above: Performed By: #### B MP ####[facility] [address] [id number]. Mely Mayes Potassium [Moles/Vol] 3.7 mmol/L Normal 3.5-5.1 [facility] Comment on above: Performed By: #### B MP ####[facility] [address] [address]Dr. Mely Mayes Sodium [Moles/Vol] 137 mmol/L Normal 136-145 [facility] Comment on above: Performed By: #### B MP ####[facility] [address] [address]Dr. Mely Mayes Urea nitrogen [Mass/Vol] 10.0 mg/dL Normal 7.0-18.0 [facility] Comment on above: Performed By: #### B MP ####[facility] [address] [address]Dr. Mely Mayes Urea nitrogen/Creatinine [Mass ratio] 10.0 mg/mg Normal [facility] Comment on above: Performed By: #### B MP ####[facility] [address] [address]DrJonathan Mayes PROF CHEM 8 (BAS METB)on Anion gap [Moles/Vol] 10.3 mmol/L Normal [facility] Comment on above: Performed By: #### B MP #### [facility] [address] [address] [address] Mely Mayes Calcium [Mass/Vol] 9.1 mg/dL Normal 8.5-10.1 [facility] Comment on above: Performed By: #### B MP #### [facility] [address] [address] [address] Mely Mayes Chloride [Moles/Vol] 103 mmol/L Normal 98-107 [facility] Comment on above: Performed By: #### B MP #### [facility] [address] [address] [address] Mely Mayes CO2 [Moles/Vol] 25.4 mmol/L Normal 21.0-32.0 [facility] Comment on above: Performed By: #### B MP #### [facility] [address] [address] [address] Mely Mayes Creatinine [Mass/Vol] 1.06 mg/dL Normal 0.70-1.30 [facility] Comment on above: Performed By: #### B MP #### [facility] [address] [address] [address] Mely Mayes EGFR-AF NIGERIEN >60 Normal >=60 [facility] Comment on above: Performed By: #### B MP #### [facility] [address] [place] [address] Dr. Mely Mayes EGFR-NON AF NIGERIEN >60 Normal >=60 [facility] Comment on above: Performed By: #### B MP #### [facility] [address] [address] [address] Mely Mayes Glucose [Mass/Vol] 247 mg/dL Critically high 74-106 T [facility] Comment on above: Performed By: #### B MP #### [facility] [address] [address] [address] Mely Mayes Potassium [Moles/Vol] 3.7 mmol/L Normal 3.5-5.1 [facility] Comment on above: Performed By: #### B MP #### [facility] [address] [address] [address] Mely Mayes Sodium [Moles/Vol] 135 mmol/L Critically low 136-145 Th [facility] Comment on above: Performed By: #### B MP #### [facility] [address] [address] [address] Mely Mayes Urea nitrogen [Mass/Vol] 11.0 mg/dL Normal 7.0-18.0 [facility] Comment on above: Performed By: #### B MP #### [facility] [address] [place] [address] Dr. Mely Mayes Urea nitrogen/Creatinine [Mass ratio] 10.4 mg/mg Normal [facility] Comment on above: Performed By: #### B MP #### [facility] [address] [place] [address] Dr. Mely Mayse PROF CHEM 8 (BAS METB)on Anion gap [Moles/Vol] 10.1 mmol/L Normal [facility] Comment on above: Performed By: #### B MP #### [facility] [address] [place] [address] Dr. Mely Mayes Calcium [Mass/Vol] 9.0 mg/dL Normal 8.5-10.1 [facility] Comment on above: Performed By: #### B MP #### [facility] [address] [place] [address] Dr. Mely Mayes Chloride [Moles/Vol] 100 mmol/L Normal 98-107 [facility] Comment on above: Performed By: #### B MP #### [facility] [address] [place] [address] Dr. Mely Mayes CO2 [Moles/Vol] 28.0 mmol/L Normal 21.0-32.0 [facility] Comment on above: Performed By: #### B MP #### [facility] [address] [place] [address] Dr. Mely Mayes Creatinine [Mass/Vol] 1.13 mg/dL Normal 0.70-1.30 [facility] Comment on above: Performed By: #### B MP #### [facility] [address] [place] [address] Dr. Mely Mayes EGFR-AF NIGERIEN >60 Normal >=60 [facility] Comment on above: Performed By: #### B MP #### [facility] [address] [place] [address] Dr. Mely Mayes EGFR-NON AF NIGERIEN >60 Normal >=60 [facility] Comment on above: Performed By: #### B MP #### [facility] [address] [place] [address] Dr. Mely Mayes Glucose [Mass/Vol] 285 mg/dL Critically high 74-106 T [facility] Comment on above: Performed By: #### B MP #### [facility] [address] [address] [address] Mely Mayes Potassium [Moles/Vol] 4.1 mmol/L Normal 3.5-5.1 [facility] Comment on above: Performed By: #### B MP #### [facility] [address] [address] [address] Mely Mayes Sodium [Moles/Vol] 134 mmol/L Critically low 136-145 Th [facility] Comment on above: Performed By: #### B MP #### [facility] [address] [address] [address] Mely Mayes Urea nitrogen [Mass/Vol] 9.0 mg/dL Normal 7.0-18.0 [facility] Comment on above: Performed By: #### B MP #### [facility] [address] [address] [address] Mely Mayes Urea nitrogen/Creatinine [Mass ratio] 8.0 mg/mg [facility] [facility] Comment on above: Performed By: #### B MP #### [facility] [address] [address] [address] Mely Mayes COVID Quick Testingon 2021 Result Positive [employer] Other BASIC METABOLIC PANELon 12-27 Calcium [Mass/Vol] 9.0 mg/dL Normal 8.6-10.3 [facility] Comment on above: Order Comment: Check Chest Tube Position Performed By: #### 1 0070, 63579 ####[facility] [place] [address], [facility] Chloride [Moles/Vol] 103 mmol/L Normal 98-107 [facility] Comment on above: Order Comment: Check Chest Tube Position Performed By: #### 1 0070, 46555 ####[facility] [place] [address], [facility] CO2 [Moles/Vol] 24 mmol/L Normal 21-31 [facility] Comment on above: Order Comment: Check Chest Tube Position Performed By: #### 1 69, 01868 ####[facility] [place] [address], [facility] Creatinine [Mass/Vol] 0.84 mg/dL Normal 0.70-1.30 [facility] Comment on above: Order Comment: Check Chest Tube Position Performed By: #### 1 69, 81839 ####[facility] [place] [address], [facility] GFR/1.73 sq M.predicted among blacks MDRD (S/P/Bld) [Vol rate/Area] mL/min/{1.73_m2} Normal >60 [facility] Comment on above: Order Comment: Check Chest Tube Position Performed By: #### 1 69, 45806 ####[facility] [place] [address], [facility] GFR/1.73 sq M.predicted among non-blacks MDRD (S/P/Bld) [Vol rate/Area] mL/min/{1.73_m2} Normal >60 [facility] Comment on above: Order Comment: Check Chest Tube Position Performed By: #### 1 69, 53368 ####[facility] [place] [address], [place] Glucose [Mass/Vol] 137 mg/dL High 70-100 [facility] Comment on above: Order Comment: Check Chest Tube Position Performed By: #### 1 69, 39794 ####[facility] [address], [facility] Potassium [Moles/Vol] 3.6 mmol/L Normal 3.5-5.1 [facility] Comment on above: Order Comment: Check Chest Tube Position Performed By: #### 1 69, 34953 ####[facility] [address], [facility] Sodium [Moles/Vol] 138 mmol/L Normal 136-145 [facility] Comment on above: Order Comment: Check Chest Tube Position Performed By: #### 1 69, 34229 ####[facility] [place] [address], [facility] Urea nitrogen [Mass/Vol] 13 mg/dL Normal 7-25 [facility] Comment on above: Order Comment: Check Chest Tube Position Performed By: #### 1 69, 73778 ####[facility] [place] [address], [facility] CBC COMPLETE BLOOD COUNTon 0 01-07-2022 Erythrocyte distribution width (RBC) [Ratio] 13.0 % Normal 11.5-15.0 [facility] Comment on above: Order Comment: evalu ate Performed By: #### 5 0608 ####[facility] [place] [address], [facility] Hematocrit (Bld) [Volume fraction] 33.3 % Low 39.0-50.0 [facility] Comment on above: Order Comment: evalu ate Performed By: #### 5 0608 ####[facility] [facility] [place] [address], [facility] Hemoglobin (Bld) [Mass/Vol] 11.8 g/dL Low 13.0-17.0 [facility] Comment on above: Order Comment: evalu ate Performed By: #### 5 0608 ####[facility] [place] [address], [facility] MCH (RBC) [Entitic mass] 30.3 pg Normal 27.0-33.0 [facility] Comment on above: Order Comment: evalu ate Performed By: #### 5 0608 ####[facility] [place] [address], [facility] MCHC (RBC) [Mass/Vol] 35.4 g/dL High 32.0-35.0 [facility] Comment on above: Order Comment: evalu ate Performed By: #### 5 0608 ####[facility] MCV (RBC) [Entitic vol] 85.6 fL Normal 82.0-98.0 [facility] Comment on above: Order Comment: evalu ate Performed By: #### 5 0608 ####[facility] Nucleated RBC/100 WBC (Bld) [Ratio] 0 % Normal 0-0 [facility] Comment on above: Order Comment: evalu ate Performed By: #### 5 0608 ####[place] [id number] [address] PLAT CNT 224 10*3/uL Normal 150-400 [facility] Comment on above: Order Comment: evalu ate Performed By: #### 5 0608 ####[address] RBC (Bld) [#/Vol] 3.89 10*6/uL Low 4.20-5.70 [facility] Comment on above: Order Comment: evalu ate Performed By: #### 5 0608 ####[facility] WBC (Bld) [#/Vol] 9.88 10*3/uL Normal 4.00-10.60 [facility] Comment on above: Order Comment: evalu ate Performed By: #### 5 0608 ####[address] MAGNESIUM BLOODon 01-07-2022 Magnesium [Mass/Vol] 2.3 mg/dL Normal 1.9-2.7 [facility] Comment on above: Order Comment: Check Chest Tube Position Performed By: #### 1 0070, 42351 ####[facility] [place] [address], [facility] POC GLUCOSE LABon 01-07-2022 Glucose [Mass/Vol] 143 mg/dL High 70-100 [facility] Comment on above: Performed By: #### 8 5499 ####[facility] [place] [address], [facility] Glucose [Mass/Vol] 182 mg/dL High 70-100 [facility] Comment on above: Performed By: #### 8 5499 ####[facility] [place] [address], [facility] PORTABLE CHEST 1 VIEWon 12-27 PORTABLE CHEST 1 VIEW [facility] Department of Radiology [address] [place] [id number] Patient Name: OSWALD OCHOA : 1955 Sex: M Age: Race: White Pt. Location: [id number] Patient Status: I Ordered Date: 01/07/2022 5:00:00 AM Completed Date: 01/07/2022 08:14 AM Requesting Provider: SERINA CLINE Attending Provider: JOSE R GUZMAN Report Copy To: Signs & Symptoms: Pneumo Thorax History: Comments: Evaluate for Pneumothorax Exam: PORTABLE CHEST 1 VIEW PORTABLE CHEST 1 VIEW 01/07/2022 8:14 AM CLINICAL INDICATIONS: Pneumo Thorax TECHNOLOGIST COMMENTS: Evaluate for Pneumothorax QUESTION FOR THE RADIOLOGIST: Evaluate for Pneumothorax PROTOCOL: AP(PA) view was obtained. COMPARISON: 01/06/2022 FINDINGS: Similar soft tissue emphysema lower neck small amount of pneumomediastinum. Previously described left apical pneumothorax somewhat less conspicuous than on prior. Prior median sternotomy. Stable cardiomediastinal silhouette. Persistent patchy opacities. Worsening opacity in the left midlung zone. Trace effusions. IMPRESSION: 1. Similar small effusions and atelectasis. 2. New focal opacity in the left midlung zone. 3. No definitive residual measurable pneumothorax 4. Soft tissue emphysema lower neck as before, slightly improved Electronically signed: YOLANDA GUTIERREZ. Transcribed by: [email or web address], User Resident: Electronically Signed by: YOLANDA GUTIERREZ @ 01/07/2022 09:39 AM Normal [facility] Comment on above: Order Comment: Evalu ate for Pneumothorax BASIC METABOLIC PANELon 12-27 Calcium [Mass/Vol] 9.0 mg/dL Normal 8.6-10.3 [facility] Comment on above: Order Comment: No: D o not add to previous draw Performed By: #### 1 69, 13570 ####[facility] [place] [address], [facility] Chloride [Moles/Vol] 100 mmol/L Normal 98-107 [facility] Comment on above: Order Comment: No: D o not add to previous draw Performed By: #### 1 69, 31425 ####[facility] [place] [address], [place] CO2 [Moles/Vol] 26 mmol/L Normal 21-31 [facility] Comment on above: Order Comment: No: D o not add to previous draw Performed By: #### 1 69, 12158 ####[facility] [place] [address], [facility] Creatinine [Mass/Vol] 0.75 mg/dL Normal 0.70-1.30 [facility] Comment on above: Order Comment: No: D o not add to previous draw Performed By: #### 1 69, 69377 ####[facility] [facility] [place] [place] [address], [facility] GFR/1.73 sq M.predicted among blacks MDRD (S/P/Bld) [Vol rate/Area] mL/min/{1.73_m2} Normal >60 [facility] Comment on above: Order Comment: No: D o not add to previous draw Performed By: #### 1 69, 68520 ####[facility] [place] [address], [facility] GFR/1.73 sq M.predicted among non-blacks MDRD (S/P/Bld) [Vol rate/Area] mL/min/{1.73_m2} Normal >60 [facility] Comment on above: Order Comment: No: D o not add to previous draw Performed By: #### 1 69, 45300 ####[facility] [place] [address], [facility] Glucose [Mass/Vol] 139 mg/dL High 70-100 [facility] Comment on above: Order Comment: No: D o not add to previous draw Performed By: #### 1 69, 36806 ####[facility] [facility] [place] [address], [facility] Potassium [Moles/Vol] 3.4 mmol/L Low 3.5-5.1 [facility] Comment on above: Order Comment: No: D o not add to previous draw Performed By: #### 1 69, 39718 ####[facility] [facility] [place] [place] [address], [place] Sodium [Moles/Vol] 136 mmol/L Normal 136-145 [facility] Comment on above: Order Comment: No: D o not add to previous draw Performed By: #### 1 0070, 64888 ####[facility] Urea nitrogen [Mass/Vol] 12 mg/dL Normal 7-25 [facility] Comment on above: Order Comment: No: D o not add to previous draw Performed By: #### 1 0, 48971 ####[facility] CBC COMPLETE BLOOD COUNTon 0 - Erythrocyte distribution width (RBC) [Ratio] 12.5 % Normal 11.5-15.0 [facility] Comment on above: Order Comment: No: D o not add to previous draw Performed By: #### 5 0608 ####[place] [id number] [address] Hematocrit (Bld) [Volume fraction] 30.8 % Low 39.0-50.0 [facility] Comment on above: Order Comment: No: D o not add to previous draw Performed By: #### 5 0608 ####[place] [address] Hemoglobin (Bld) [Mass/Vol] 10.9 g/dL Low 13.0-17.0 [facility] Comment on above: Order Comment: No: D o not add to previous draw Performed By: #### 5 0608 ####[facility] [place] [address], [facility] MCH (RBC) [Entitic mass] 30.2 pg Normal 27.0-33.0 [facility] Comment on above: Order Comment: No: D o not add to previous draw Performed By: #### 5 0608 ####[facility] [place] [address], [facility] MCHC (RBC) [Mass/Vol] 35.4 g/dL High 32.0-35.0 [facility] Comment on above: Order Comment: No: D o not add to previous draw Performed By: #### 5 0608 ####[facility] [facility] [place] [address], [facility] MCV (RBC) [Entitic vol] 85.3 fL Normal 82.0-98.0 [facility] Comment on above: Order Comment: No: D o not add to previous draw Performed By: #### 5 0608 ####[facility] [place] [address], [facility] Nucleated RBC/100 WBC (Bld) [Ratio] 0 % Normal 0-0 [facility] Comment on above: Order Comment: No: D o not add to previous draw Performed By: #### 5 0608 ####[facility] [place] [address], [facility] PLAT CNT 169 10*3/uL Normal 150-400 The [facility] Comment on above: Order Comment: No: D o not add to previous draw Performed By: #### 5 0608 ####[facility] [place] [address], [facility] RBC (Bld) [#/Vol] 3.61 10*6/uL Low 4.20-5.70 [facility] Comment on above: Order Comment: No: D o not add to previous draw Performed By: #### 5 0608 ####[facility] [facility] [place] [address], [facility] WBC (Bld) [#/Vol] 11.89 10*3/uL High 4.00-10.60 [facility] Comment on above: Order Comment: No: D o not add to previous draw Performed By: #### 5 0608 ####[facility] [place] [address], [facility] MAGNESIUM BLOODon 01-06-2022 Magnesium [Mass/Vol] 1.9 mg/dL Normal 1.9-2.7 [facility] Comment on above: Order Comment: No: D o not add to previous draw Performed By: #### 1 0070, 40957 ####[facility] [place] [address], [facility] POC GLUCOSE LABon 01-06-2022 Glucose [Mass/Vol] 143 mg/dL High 70-100 [facility] Comment on above: Performed By: #### 8 5499 ####[facility] [place] [address], [place] Glucose [Mass/Vol] 159 mg/dL High 70-100 [facility] Comment on above: Performed By: #### 8 5499 ####[facility] [place] [address], [place] Glucose [Mass/Vol] 215 mg/dL High 70-100 [facility] Comment on above: Performed By: #### 8 5499 ####[facility] [place] [address], [place] Glucose [Mass/Vol] 153 mg/dL High 70-100 [facility] Comment on above: Performed By: #### 8 5499 ####[facility] [place] [address], [facility] PORTABLE CHEST 1 VIEWon 12-27 PORTABLE CHEST 1 VIEW [facility] Department of Radiology [address] [place] [address] Patient Name: OSWALD OCHOA : 1955 Sex: M Age: Race: White Pt. Location: [place] [address] Patient Status: I Ordered Date: 01/06/2022 5:00:00 AM Completed Date: 01/06/2022 08:03 AM Requesting Provider: SERINA CLINE Attending Provider: JOSE R GUZMAN Report Copy To: Signs & Symptoms: Atelectasis History: Comments: Evaluate for Atelectasis Exam: PORTABLE CHEST 1 VIEW PORTABLE CHEST 1 VIEW 01/06/2022 8:03 AM CLINICAL INDICATIONS: Atelectasis TECHNOLOGIST COMMENTS: Post op CABG - evaluate for pneumothorax QUESTION FOR THE RADIOLOGIST: Evaluate for Atelectasis PROTOCOL: AP(PA) view was obtained. COMPARISON: 01/05/2022 FINDINGS: Stable cardiomediastinal silhouette. Prior median sternotomy. Soft tissue emphysema in the low neck with similar pneumomediastinum. Small left apical pneumothorax measures 7 mm, similar since prior prior. Persistent small effusions and atelectasis IMPRESSION: 1. Similar subcentimeter left apical pneumothorax and lower cervical soft tissue emphysema/pneumomedia stinum. 2. Ongoing small effusions and atelectasis. Electronically signed: YOLANDA GUTIERREZ. Transcribed by: [email or web address], User Resident: Electronically Signed by: YOLANDA GUTIERREZ @ 01/06/2022 09:50 AM Normal [facility] Comment on above: Order Comment: Evalu ate for Atelectasis BASIC METABOLIC PANELon 12-27 Calcium [Mass/Vol] 9.0 mg/dL Normal 8.6-10.3 [facility] Comment on above: Order Comment: Check Chest Tube Position Performed By: #### 0 0071, 06601, 44510 ####[facility] [place] [address], [facility] Chloride [Moles/Vol] 101 mmol/L Normal 98-107 [facility] Comment on above: Order Comment: Check Chest Tube Position Performed By: #### 0 0071, 11892, 84252 ####[facility] [place] [address], [place] CO2 [Moles/Vol] 28 mmol/L Normal 21-31 [facility] Comment on above: Order Comment: Check Chest Tube Position Performed By: #### 0 0071, 48553, 71122 ####[facility] [place] [address], [facility] Creatinine [Mass/Vol] 0.79 mg/dL Normal 0.70-1.30 [facility] Comment on above: Order Comment: Check Chest Tube Position Performed By: #### 0 0071, 92005, 41812 ####[facility] [place] [address], [place] GFR/1.73 sq M.predicted among blacks MDRD (S/P/Bld) [Vol rate/Area] mL/min/{1.73_m2} Normal >60 [facility] Comment on above: Order Comment: Check Chest Tube Position Performed By: #### 0 0071, 97404, 22143 ####[facility] [place] [address], [facility] GFR/1.73 sq M.predicted among non-blacks MDRD (S/P/Bld) [Vol rate/Area] mL/min/{1.73_m2} Normal >60 [facility] Comment on above: Order Comment: Check Chest Tube Position Performed By: #### 0 0071, 34090, 44295 ####[facility] [place] [address], [place] Potassium [Moles/Vol] 3.9 mmol/L Normal 3.5-5.1 [facility] Comment on above: Order Comment: Check Chest Tube Position Performed By: #### 0 0071, 84211, 25407 ####[facility] [facility] Sodium [Moles/Vol] 135 mmol/L Low 136-145 [facility] Comment on above: Order Comment: Check Chest Tube Position Performed By: #### 0 0071, 40970, 53006 ####[facility] [facility].[address] Urea nitrogen [Mass/Vol] 9 mg/dL Normal 7-25 [facility] Comment on above: Order Comment: Check Chest Tube Position Performed By: #### 0 0071, 11648, [address] ####[place] [address] [facility].[address] CBC COMPLETE BLOOD COUNTon 0 01-05-2022 Erythrocyte distribution width (RBC) [Ratio] 13.1 % Normal 11.5-15.0 [facility] Comment on above: Order Comment: No: D o not add to previous draw Performed By: #### 5 0608 ####[address] Hematocrit (Bld) [Volume fraction] 30.6 % Low 39.0-50.0 [facility] Comment on above: Order Comment: No: D o not add to previous draw Performed By: #### 5 0608 ####[address] Hemoglobin (Bld) [Mass/Vol] 10.6 g/dL Low 13.0-17.0 [facility] Comment on above: Order Comment: No: D o not add to previous draw Performed By: #### 5 0608 ####[address] MCH (RBC) [Entitic mass] 30.3 pg Normal 27.0-33.0 [facility] Comment on above: Order Comment: No: D o not add to previous draw Performed By: #### 5 0608 ####[facility] [facility].[address] MCHC (RBC) [Mass/Vol] 34.6 g/dL Normal 32.0-35.0 [facility] Comment on above: Order Comment: No: D o not add to previous draw Performed By: #### 5 0608 ####[facility] [facility].[address] MCV (RBC) [Entitic vol] 87.4 fL Normal 82.0-98.0 [facility] Comment on above: Order Comment: No: D o not add to previous draw Performed By: #### 5 0608 ####[facility] [facility].[address] Nucleated RBC/100 WBC (Bld) [Ratio] 0 % Normal 0-0 [facility] Comment on above: Order Comment: No: D o not add to previous draw Performed By: #### 5 0608 ####[facility] [place] [address], [facility] PLAT CNT 155 10*3/uL Normal 150-400 The [facility] Comment on above: Order Comment: No: D o not add to previous draw Performed By: #### 5 0608 ####[facility] [place] [address], [facility] RBC (Bld) [#/Vol] 3.50 10*6/uL Low 4.20-5.70 [facility] Comment on above: Order Comment: No: D o not add to previous draw Performed By: #### 5 0608 ####[facility] [place] [address], [facility] WBC (Bld) [#/Vol] 13.63 10*3/uL High 4.00-10.60 [facility] Comment on above: Order Comment: No: D o not add to previous draw Performed By: #### 5 0608 ####[facility] [place] [address], [place] MAGNESIUM BLOODon 01-05-2022 Magnesium [Mass/Vol] 2.0 mg/dL Normal 1.9-2.7 [facility] Comment on above: Order Comment: Check Chest Tube Position Performed By: #### 0 0071, 87763, 19202 ####[facility] [place] [address], [place] PHOSPHORUS BLOODon Phosphate [Mass/Vol] 2.8 mg/dL Normal 2.5-5.0 [facility] Comment on above: Performed By: #### 0 0071, 78699, 54680 ####[facility] [place] [address], [place] POC GLUCOSE LABon 01-05-2022 Glucose [Mass/Vol] 136 mg/dL High 70-100 [facility] on above: Performed By: #### 8 5499 ####[facility] [place] [address], [place] Glucose [Mass/Vol] 157 mg/dL High 70-100 [facility] Comment on above: Performed By: #### 8 5499 ####[facility] [place] [address], [place] Glucose [Mass/Vol] 147 mg/dL High 70-100 [facility] Comment on above: Performed By: #### 8 5499 ####[facility] [place] [address], [place] Order Comment: Check Chest Tube Position Performed By: #### 0 0071, 50805, 48522 ####[facility] [place] [address], [place] Glucose [Mass/Vol] 151 mg/dL High 70-100 [facility] Comment on above: Performed By: #### 8 5499 ####[facility] PORTABLE CHEST 1 VIEWon 12-27 PORTABLE CHEST 1 VIEW [facility] Department of Radiology [address] [place] [address] Patient Name: OSWALD OCHOA : 1955 Sex: M Age: Race: White Pt. Location: [place] [address] Patient Status: I Ordered Date: 01/05/2022 12:20:00 PM Completed Date: 01/05/2022 03:43 PM Requesting Provider: SERINA CLINE Attending Provider: JOSE R GUZMAN Report Copy To: Signs & Symptoms: Post Chest Tube Removal History: Comments: evaluate Exam: PORTABLE CHEST 1 VIEW PORTABLE CHEST 1 VIEW 01/05/2022 3:43 PM CLINICAL INDICATIONS: Post Chest Tube Removal TECHNOLOGIST COMMENTS: Post Chest Tube Removal QUESTION FOR THE RADIOLOGIST: evaluate PROTOCOL: AP(PA) view was obtained. COMPARISON: 01/05/2022 at 0553 hours FINDINGS: Right internal jugular central venous catheter has been removed. Right lower neck and supraclavicular subcutaneous emphysema, unchanged. Curvilinear opacity over the left apex could be tracking of small volume pneumomediastinum in the extrapleural space in this region versus very small pneumothorax. Stable bibasilar airspace disease and small pleural effusions. Stable pulmonary vasculature. IMPRESSION: 1. Possible very small left apical pneumothorax versus small volume pneumomediastinum tracking over the left apex. Stable right lower neck and supraclavicular subcutaneous emphysema. 2. Otherwise stable exam. Dr. Garcia discussed findings of possible small left pneumothorax with Jeana Iniguez, the patient's nurse, on 01/05/2022 at 1712 hours. Electronically signed: Nic Garcia. Transcribed by: [email or web address], User Resident: Electronically Signed by: NIC GARCIA @ 01/05/2022 05:15 PM Normal [facility] Comment on above: Order Comment: evalu ate PORTABLE CHEST 1 VIEW [facility] Department of Radiology [address] [place] [id number] Patient Name: OSWALD OCHOA : 1955 Sex: M Age: Race: White Pt. Location: [place] [address] Patient Status: I Ordered Date: 01/05/2022 5:00:00 AM Completed Date: 01/05/2022 06:22 AM Requesting Provider: SERINA CLINE Attending Provider: JOSE R GUZMAN Report Copy To: Signs & Symptoms: Atelectasis History: See Comments Comments: evaluate for Atelectasis Exam: PORTABLE CHEST 1 VIEW PORTABLE CHEST 1 VIEW 01/05/2022 6:22 AM CLINICAL INDICATIONS: Atelectasis TECHNOLOGIST COMMENTS: chest pain, CABG QUESTION FOR THE RADIOLOGIST: evaluate for Atelectasis PROTOCOL: AP(PA) view was obtained. COMPARISON: January 04, 2022. FINDINGS: Right-sided jugular sheath, cardiomegaly and sternotomy wires remain. Lower lung field opacities consistent with pleural effusion and lower lobe consolidation as well as pulmonary vascular congestion remain unchanged. No convincing pneumothorax. IMPRESSION: No interval change appreciated. Electronically signed: Michelle Rebolledo. Transcribed by: [id number], User Resident: Electronically Signed by: MICHELLE REBOLLEDO @ 01/05/2022 08:23 AM Normal [facility] Comment on above: Order Comment: evalu ate for Atelectasis APTTon 01-04-2022 aPTT Coag (Bld) [Time] 31.0 s Normal 25.0-35.0 [facility] Comment on above: Order Comment: evalu ate Result Comment: ALL RESULTS MUST BE INTERPRETED WITH RESPECT TO BLOOD DRAWING ARTIFACT OR DILUTION ERROR OF ANTICOAGULANT AT THE TIME OF SAMPLING. THE APTT SHOULD NOT BE USED TO MONITOR UNFRACTIONATED HEPARIN THERAPY, THIS LABORATORY NO LONGER HAS AN ESTABLISHED THERAPEUTIC RANGE BASED ON THE APTT. IT IS RECOMMENDED THAT THE [facility] - HEPARIN ASSAY (ANTI-XA ACTIVITY) BE USED FOR THIS PURPOSE. Performed By: #### 5 6101, [id number] ####[facility] [place] [address], [facility] ARTERIAL BLOOD GAS WITH ICAo n 01-04-2022 BASE EXCESS -5 mmol/L Low -2-3 The [facility] Comment on above: Order Comment: Check Chest Tube Position, ON ARRIVAL TO CVU Performed By: #### 8 1801 ####[facility] [place] [address], [place] DELIVERY SYSTEMS VENTILATOR Normal [facility] Comment on above: Order Comment: Check Chest Tube Position, ON ARRIVAL TO CVU Performed By: #### 8 0794 ####[facility] [place] [address], [place] FIO2 40 % Normal [facility] Comment on above: Order Comment: Check Chest Tube Position, ON ARRIVAL TO CVU Performed By: #### 8 5101 ####[facility] [place] [address], [facility] HCO3 (Bld) [Moles/Vol] 22 mmol/L Normal 21-28 [facility] Comment on above: Order Comment: Check Chest Tube Position, ON ARRIVAL TO CVU Performed By: #### 8 4511 ####[facility] [place] [address], [place] IONIZED CALCIUM ERROR Normal 1.13-1.32 The [facility] Comment on above: Order Comment: Check Chest Tube Position, ON ARRIVAL TO CVU Performed By: #### 8 4511 ####[facility] [place] [address], [facility] MIN VOLUME 11.7 Normal [facility] Comment on above: Order Comment: Check Chest Tube Position, ON ARRIVAL TO CVU Performed By: #### 8 4511 ####[facility] [place] [address], [facility] MODALITY SPONT Normal [facility] Comment on above: Order Comment: Check Chest Tube Position, ON ARRIVAL TO CVU Performed By: #### 8 4511 ####[facility] [place] [address], [place] Oxygen (Bld) [Partial pressure] 116 mm[Hg] Critically high 83-108 The [facility] Comment on above: Order Comment: Check Chest Tube Position, ON ARRIVAL TO CVU Performed By: #### 8 4511 ####[facility] [place] [address], [place] Oxygen saturation in Blood 96.7 % Normal 94.0-97.0 The [facility] Comment on above: Order Comment: Check Chest Tube Position, ON ARRIVAL TO CVU Performed By: #### 8 4511 ####[facility] [place] [address], [facility] PCO2 45 mmHg Normal 35-45 [facility] Comment on above: Order Comment: Check Chest Tube Position, ON ARRIVAL TO CVU Performed By: #### 8 4511 ####[facility] [place] [address], [facility] PEEP 8.0 CMH20 Normal [facility] Comment on above: Order Comment: Check Chest Tube Position, ON ARRIVAL TO CVU Performed By: #### 8 4511 ####[facility] [place] [address], [facility] pH (Bld) 7.29 [pH] Low 7.35-7.45 [facility] Comment on above: Order Comment: Check Chest Tube Position, ON ARRIVAL TO CVU Performed By: #### 8 4511 ####[facility] [place] [address], [facility] PRESSURE SUPPORT 5 Normal The [facility] Comment on above: Order Comment: Check Chest Tube Position, ON ARRIVAL TO CVU Performed By: #### 8 4511 ####[facility] [place] [address], [facility] BASIC METABOLIC PANELon 06-0 -2021 Calcium [Mass/Vol] 8.5 mg/dL Low 8.6-10.3 [facility] Comment on above: Order Comment: post thoracotomy Performed By: #### 4 999, 93453, 58691 ####[facility] [place] [address], [facility] Chloride [Moles/Vol] 107 mmol/L Normal 98-107 [facility] Comment on above: Order Comment: post thoracotomy Performed By: #### 4 999, 88206, 64044 ####[facility] [place] [address], [facility] CO2 [Moles/Vol] 25 mmol/L Normal 21-31 The [facility] Comment on above: Order Comment: post thoracotomy Performed By: #### 4 1000, 65201, 60196 ####[facility] [place] [address], [place] Creatinine [Mass/Vol] 0.96 mg/dL Normal 0.70-1.30 [facility] Comment on above: Order Comment: post thoracotomy Performed By: #### 4 999, 76271, 86712 ####[facility] [place] [address], [place] GFR/1.73 sq M.predicted among blacks MDRD (S/P/Bld) [Vol rate/Area] mL/min/{1.73_m2} Normal >60 [facility] Comment on above: Order Comment: post thoracotomy Performed By: #### 4 999, 02255, 02922 ####[facility] [place] [address], [place] GFR/1.73 sq M.predicted among non-blacks MDRD (S/P/Bld) [Vol rate/Area] mL/min/{1.73_m2} Normal >60 [facility] Comment on above: Order Comment: post thoracotomy Performed By: #### 4 999, 25067, 60456 ####[facility] [place] [address], [place] Glucose [Mass/Vol] 172 mg/dL High 70-100 [facility] Comment on above: Order Comment: post thoracotomy Performed By: #### 4 999, 11181, 53311 ####[facility] [place] [address], [place] Potassium [Moles/Vol] 4.1 mmol/L Normal 3.5-5.1 [facility] Comment on above: Order Comment: post thoracotomy Performed By: #### 4 999, 65375, 51129 ####[facility] [place] [address], [place] Sodium [Moles/Vol] 139 mmol/L Normal 136-145 [facility] Comment on above: Order Comment: post thoracotomy Performed By: #### 4 1000, 15660, 98878 ####[facility] Urea nitrogen [Mass/Vol] 10 mg/dL Normal 7-25 [facility] Comment on above: Order Comment: post thoracotomy Performed By: #### 4 1000, 19793, 69125 ####[facility] [facility] CBC COMPLETE BLOOD COUNTon 0 01-04-2022 Erythrocyte distribution width (RBC) [Ratio] 12.7 % Normal 11.5-15.0 [facility] Comment on above: Order Comment: No: D o not add to previous drawNurse draw per rn clare Performed By: #### 5 0608 ####[facility] Hematocrit (Bld) [Volume fraction] 30.5 % Low 39.0-50.0 [facility] Comment on above: Order Comment: No: D o not add to previous drawNurse draw per rn clare Performed By: #### 5 0608 ####[place] [id number] [address] Hemoglobin (Bld) [Mass/Vol] 10.6 g/dL Low 13.0-17.0 [facility] Comment on above: Order Comment: No: D o not add to previous drawNurse draw per rn clare Performed By: #### 5 0608 ####[facility] [place] [address], [facility] MCH (RBC) [Entitic mass] 30.1 pg Normal 27.0-33.0 [facility] Comment on above: Order Comment: No: D o not add to previous drawNurse draw per rn clare Performed By: #### 5 0608 ####[facility] [place] [address], [place] MCHC (RBC) [Mass/Vol] 34.8 g/dL Normal 32.0-35.0 [facility] Comment on above: Order Comment: No: D o not add to previous drawNurse draw per rn clare Performed By: #### 5 0608 ####[facility] [place] [address], [facility] MCV (RBC) [Entitic vol] 86.6 fL Normal 82.0-98.0 [facility] Comment on above: Order Comment: No: D o not add to previous drawNurse draw per rn clare Performed By: #### 5 0608 ####[facility] [place] [address], [facility] Nucleated RBC/100 WBC (Bld) [Ratio] 0 % Normal 0-0 [facility] Comment on above: Order Comment: No: D o not add to previous drawNurse draw per rn clare Performed By: #### 5 0608 ####[facility] [place] [address], [facility] PLAT CNT 149 10*3/uL Low 150-400 The [facility] Comment on above: Order Comment: No: D o not add to previous drawNurse draw per rn clare Performed By: #### 5 0608 ####[facility] [place] [address], [facility] RBC (Bld) [#/Vol] 3.52 10*6/uL Low 4.20-5.70 The [facility] Comment on above: Order Comment: No: D o not add to previous drawNurse draw per rn clare Performed By: #### 5 0608 ####[facility] [place] [address], [facility] WBC (Bld) [#/Vol] 11.45 10*3/uL High 4.00-10.60 [facility] Comment on above: Order Comment: No: D o not add to previous drawNurse draw per rn clare Performed By: #### 5 0608 ####[facility] [place] [address], [facility] LACTATE BLOODon 01-04-2022 Lactate [Moles/Vol] 2.0 mmol/L Normal .5-2.2 The [facility] Comment on above: Order Comment: Check Chest Tube Position Performed By: #### 1 0054 ####[facility] [place] [address], [facility] MAGNESIUM BLOODon 01-04-2022 Magnesium [Mass/Vol] 2.4 mg/dL Normal 1.9-2.7 [facility] Comment on above: Order Comment: post thoracotomy Performed By: #### 4 1000, 41393, 04260 ####[facility] [place] [address], [facility] MIXED VENOUS BLOOD GAS W/DIFFUSION OPERATOR Xon 01-04-2022 BASE EXCESS -1 mmol/L Normal The [facility] Comment on above: Performed By: #### 7 0072 ####[facility] [place] [address], [facility] COHB 1 % Normal [facility] Comment on above: Performed By: #### 7 0072 ####[facility] [place] [address], [facility] DELIVERY SYSTEMS NASAL CANNULA Normal [facility] Comment on above: Performed By: #### 7 0072 ####[facility] [place] [address], [facility] HCO3 (Bld) [Moles/Vol] 26 mmol/L Normal [facility] Comment on above: Performed By: #### 7 0072 ####[facility] [place] [address], [facility] LPM 3 Normal [facility] Comment on above: Performed By: #### 7 0072 ####[facility] [place] [address], [place] METHB 0 % Normal [facility] Comment on above: Performed By: #### 7 0072 ####[facility] [place] [address], [place] Oxygen (Bld) [Partial pressure] 41 mm[Hg] Normal 35-45 The [facility] Comment on above: Performed By: #### 7 0072 ####[facility] [place] [address], [place] Oxygen saturation in Blood 67.6 % Normal 65.0-75.0 [facility] Comment on above: Performed By: #### 7 0072 ####[facility] [place] [address], [place] PCO2 51 mmHg High 40-50 [facility] Comment on above: Performed By: #### 7 0072 ####[facility] [place] [address], [place] pH (Bld) 7.32 [pH] Normal 7.31-7.41 [facility] Comment on above: Performed By: #### 7 0072 ####[facility] [place] [address], [place] THB 11.0 g/dL Normal [facility] Comment on above: Performed By: #### 7 0072 ####[facility] [place] [address], [facility] Operative Reporton 2 Operative Report MR#: [id number] I [facility] Pt. Name: Oswald Ochoa Room #: HIRO [id number] Discharge Date: Birthdate: 1955 OPERATIVE REPORT DATE OF SURGERY: 01/03/2022 SURGEON: Jose R Guzman MD PREOPERATIVE DIAGNOSIS: Three-vessel coronary artery disease. POSTOPERATIVE DIAGNOSIS: Three-vessel coronary artery disease. OPERATION: 1. Coronary artery bypass grafting x5, MAHMOOD to LAD, saphenous vein graft to obtuse marginal 2 and obtuse marginal 3 branches, saphenous vein graft to diagonal branch, saphenous vein graft to right coronary artery. 2. Endoscopic vein harvesting of the left greater saphenous vein. 3. Interpretation of transesophageal echocardiogram. PUBLIC AREA ATTENDANT: Pedro Luis Gill. ANESTHESIA: General with endotracheal intubation. ANESTHESIOLOGIST: Randell Dooley M.D. INDICATIONS: A 66-year-old male who was electively scheduled for coronary artery bypass grafting, but was admitted to the hospital with tingling sensation and chest discomfort. Troponins were negative. DESCRIPTION OF PROCEDURE: The patient was brought to the operating room and prepped and draped in the routine fashion. ROLF was done, showed good ventricular function. No significant valvular lesions were noted. Left greater saphenous vein was harvested endoscopically. Chest was entered through median sternotomy and left internal mammary artery was harvested under direct vision using skeletonization technique. The patient was heparinized and internal mammary artery was divided and prepared for later use. Pericardium was opened and ascending aorta and right atrium were cannulated in the usual fashion. Antegrade cardioplegia catheter was placed in the ascending aorta. Cardiopulmonary bypass was initiated. Cross-clamp was applied. Cold blood antegrade cardioplegia was given every 15-20 minutes or whenever myocardial temperature was 20 degrees. The lateral surface of the heart was exposed. Obtuse marginal 3 branch was identified. This was 2 mm in size. The vein graft anastomosed in end-to-side fashion using 7-0 Prolene running stitch. Upon completion of this anastomosis, there was excellent flow through the graft. The vein graft anastomosed in a [id number] fashion to the obtuse marginal 2 branch using 7-0 Prolene running stitch. Upon completion of this anastomosis, there was excellent flow through this anastomosis also. The vein graft anastomosed to the ascending aorta using 6-0 Prolene running stitch. Next, attention was focused to the right coronary artery. The posterior posterolateral ventricular branch was too small to bypass when the posterior descending artery was too severely diseased. The right coronary artery was exposed beyond the acute margin. An arteriotomy was made. The vein graft anastomosed in end-to-side fashion using 7-0 Prolene running stitch. Upon completion of this anastomosis, there was excellent flow through the graft. The vein graft anastomosed to the ascending aorta using 6-0 Prolene running stitch. After constructing proximal anastomosis of the right coronary artery catheter, attention was focused to the diagonal branch. The 1st diagonal branch was rather small, about 1.5 mm in size. Vein graft anastomosed in end-to-side fashion using 7-0 Prolene running stitch. Upon completion of this anastomosis, there was excellent flow through this graft also. This vein graft anastomosed separately to the ascending aorta using 6-0 Prolene running stitch. Finally, attention was focused to the LAD was exposed in its mid to distal 3rd. An arteriotomy was made, a 1.5 mm shunt could be passed with little bit of difficulty distally, but passed proximally. MAHMOOD was anastomosed in end-to-side fashion using 8-0 Prolene running stitch. Upon completion of this anastomosis, the bulldog clamp was released. Blood flow was resumed through the mammary graft. The patient was placed in a Trendelenburg position. Cross-clamp was released. Aortic root vent was turned on. Ventricular and atrial pacing wires were placed. The patient was AV paced at 70 beats per minute. The heart regained spontaneous rhythm after some time, but the rate was slow. Therefore we continued AV pacing. The patient was weaned off cardiopulmonary bypass. Transit time flow measurements were done, showed excellent pulsatility index of 1.2-3 in the vein graft through the right coronary artery as well as diagonal branch, vein graft to the obtuse marginal branch also had pulsatility index for blood flows were all measuring 50-60 mL/minute. The MAHMOOD to LAD anastomosis had pulsatility index of 1.2 with blood flow measuring 28-32 mL/minute. Venous cannula was removed. After completion of protamine administration, aortic cannula was also removed. Hemostasis was secured. Two chest tubes were placed in mediastinum and the left chest was closed with sternal cables using 1 Vicryl, 2-0 Vicryl, and 4-0 Monocryl stitches. The leg wound w (more content not included)... Normal [facility] PHOSPHORUS BLOODon 2 Phosphate [Mass/Vol] 2.9 mg/dL Normal 2.5-5.0 [facility] Comment on above: Order Comment: post thoracotomy Performed By: #### 4 1000, 73978, 74703 ####[facility] [place] [address], [place] POC GLUCOSE LABon 01-04-2022 Glucose [Mass/Vol] 130 mg/dL High 70-100 [facility] Comment on above: Performed By: #### 8 5499 ####[facility] [place] [address], [place] Glucose [Mass/Vol] 118 mg/dL High 70-100 [facility] Comment on above: Performed By: #### 8 5499 ####[facility] [place] [address], [place] Glucose [Mass/Vol] 101 mg/dL High 70-100 [facility] Comment on above: Performed By: #### 8 5499 ####[facility] [place] [address], [place] Glucose [Mass/Vol] 96 mg/dL Normal 70-100 [facility] Comment on above: Performed By: #### 8 5499 ####[facility] [place] [address], [place] Glucose [Mass/Vol] 76 mg/dL Normal 70-100 [facility] Comment on above: Performed By: #### 8 5499 ####[facility] [place] [address], [place] Glucose [Mass/Vol] 93 mg/dL Normal 70-100 [facility] Comment on above: Performed By: #### 8 5499 ####[facility] [place] [address], [place] Glucose [Mass/Vol] 130 mg/dL High 70-100 [facility] Comment on above: Performed By: #### 8 5499 ####[facility] [place] [address], [place] Glucose [Mass/Vol] 130 mg/dL High 70-100 [facility] Comment on above: Performed By: #### 8 5499 ####[facility] [facility] [place] [address], [place] Glucose [Mass/Vol] 147 mg/dL High 70-100 [facility] Comment on above: Performed By: #### 8 5499 ####[facility] [facility] [place] [address], [place] Glucose [Mass/Vol] 175 mg/dL High 70-100 [facility] Comment on above: Performed By: #### 8 5499 ####[facility] [facility] [place] [address], [place] Glucose [Mass/Vol] 190 mg/dL High 70-100 [facility] Comment on above: Performed By: #### 8 5499 ####[facility] [facility] [place] [address], [place] Glucose [Mass/Vol] 207 mg/dL High 70-100 [facility] Comment on above: Performed By: #### 8 5499 ####[facility] [place] [address], [place] Glucose [Mass/Vol] 200 mg/dL High 70-100 [facility] Comment on above: Performed By: #### 8 5499 ####[facility] [place] [address], [place] PORTABLE CHEST 1 VIEW PORTABLE CHEST 1 VIEW [facility] Department of Radiology [address] [place] [id number] Patient Name: OSWALD OCHOA : 1955 Sex: M Age: Race: White Pt. Location: [id number] Patient Status: I Ordered Date: 01/04/2022 1:00:00 PM Completed Date: 01/04/2022 12:57 PM Requesting Provider: SERINA CLINE Attending Provider: JOSE R GUZMAN Report Copy To: Signs & Symptoms: Post Chest Tube Removal History: Comments: Pneumothorax Exam: PORTABLE CHEST 1 VIEW PORTABLE CHEST 1 VIEW 01/04/2022 12:57 PM CLINICAL INDICATIONS: Post Chest Tube Removal TECHNOLOGIST COMMENTS: increased left side chest pain, s/p mediastinal chest tube removal QUESTION FOR THE RADIOLOGIST: Pneumothorax PROTOCOL: AP(PA) view was obtained. COMPARISON: January 04, 2022. 0643 hours. FINDINGS: The [place] catheter has been withdrawn leaving a right jugular vein sheath with its tip in the SVC. Sternotomy wires and cardiomegaly remain. Pleural effusion suggested in the left costophrenic angle linear atelectasis over both hemidiaphragms. Perihilar congestive changes persist. No pneumothorax. IMPRESSION: No pneumothorax. No interval change in lung cunningham. Electronically signed: Michelle Rebolledo. Transcribed by: [email or web address], User Resident: Electronically Signed by: MICHELLE REBOLLEDO @ 01/04/2022 01:25 PM Normal [facility] Comment on above: Order Comment: Pneum othorax PORTABLE CHEST 1 VIEW [facility] Department of Radiology [address] [place] [id number] Patient Name: OSWALD OCHOA : 1955 Sex: M Age: Race: White Pt. Location: [place] [address] Patient Status: I Ordered Date: 01/04/2022 7:00:00 AM Completed Date: 01/04/2022 07:25 AM Requesting Provider: FRANCISCO HENLEY Attending Provider: JAZMIN FRANCO Report Copy To: Signs & Symptoms: Post CABG History: Comments: Check Chest Tube Position Exam: PORTABLE CHEST 1 VIEW PORTABLE CHEST 1 VIEW 01/04/2022 7:25 AM CLINICAL INDICATIONS: Post CABG TECHNOLOGIST COMMENTS: Post CABG chest tubes QUESTION FOR THE RADIOLOGIST: Check Chest Tube Position PROTOCOL: AP(PA) view was obtained. COMPARISON: July,. FINDINGS: The endotracheal tube and NG tube have been removed. [place] catheter remains with its tip in the right main pulmonary artery. Sternotomy wires with mild cardiomegaly remain. Haziness in the left costophrenic angle suggests effusion and lower lobe consolidation. No pneumothorax identified. IMPRESSION: Left pleural effusion and lower lobe consolidation. Electronically signed: Michelle Rebolledo. Transcribed by: [email or web address], User Resident: Electronically Signed by: MICHELLE REBOLLEDO @ 01/04/2022 08:12 AM Normal [facility] Comment on above: Order Comment: Check Chest Tube Position PROTHROMBIN TIMEon 2 INR Coag (PPP) [Relative time] 1.24 {INR} High 0.91-1.16 [facility] Comment on above: Order Comment: evalu ate Result Comment: [facility] P RECOMMENDED INR FOR WARFARIN THERAPY ------ ------- CONDITION INR PROPHYLAXIS OF VENOUS THROMBOSIS 2-3 (HIGH-RISK SURGERY) TREATMENT OF VENOUS THROMBOSIS 2-3 TREATMENT OF PULMONARY EMBOLISM 2-3 PREVENTION OF SYSTEMIC EMBOLISM: 2-3 ACUTE MYOCARDIAL INFARCTION TISSUE HEART VALVES VALVULAR HEART DISEASE ATRIAL FIBRILLATION RECURRENT SYSTEMIC EMBOLISM MECHANICAL HEART VALVE 2.5-3.5 FROM: ORAL ANTICOAGULANTS. MECHANISM OF ACTION, CLINICAL EFFECTIVENESS, AND OPTIMAL THERAPEUTIC RANGE. CHEST 1995;108:231S-246S. Performed By: #### 5 6101, [id number] ####[place] [id number] PT Coag (PPP) [Time] 15.5 s High 12.3-14.8 [facility] Comment on above: Order Comment: evalu ate Result Comment: ALL RESULTS MUST BE INTERPRETED WITH RESPECT TO BLOOD DRAWING ARTIFACT OR DILUTION ERROR OF ANTICOAGULANT AT THE TIME OF SAMPLING. Performed By: #### 5 6101, 06507 ####[place] [id number] [address] *MRSA/MSSA DNA NASALon 01-03 *MRSA/MSSA DNA NASAL Clinical Report: (D) Specimen: NASAL SWAB Collected: 01/02/2022 22:13 Status: Final Last Updated: 01/03/2022 10:59 MSSA DNA (Final) Negative MRSA DNA (Final) Negative Normal [facility] Comment on above: Performed By: #### 3 1595 ####[place] [id number] [address] ACTIVATED CLOTTING TIMEon ACTIVATED CLOTTING TIME 0 sec Low 82-152 [facility] Comment on above: Performed By: #### 3 0739 ####[facility] [place] [address], [place] ACTIVATED CLOTTING TIME 116 sec Normal 82-152 [facility] Comment on above: Performed By: #### 3 0739 ####[facility] [place] [address], [place] ACTIVATED CLOTTING TIME 426 sec High 82-152 [facility] Comment on above: Performed By: #### 3 0739 ####[facility] [place] [address], [place] ACTIVATED CLOTTING TIME 512 sec High 82-152 [facility] Comment on above: Performed By: #### 3 0739 ####[facility] [place] [address], [place] ACTIVATED CLOTTING TIME 622 sec High 82-152 [facility] Comment on above: Performed By: #### 3 0739 ####[facility] [place] [address], [place] ACTIVATED CLOTTING TIME 722 sec High 82-152 [facility] Comment on above: Performed By: #### 3 0739 ####[facility] [place] [address], [place] ACTIVATED CLOTTING TIME 855 sec High 82-152 [facility] Comment on above: Performed By: #### 3 0739 ####[facility] [place] [address], [place] ACTIVATED CLOTTING TIME 122 sec Normal 82-152 [facility] Comment on above: Performed By: #### 3 0739 ####[facility] [place] [address], [place] APTTon 01-03-2022 aPTT Coag (Bld) [Time] 31.0 s Normal 25.0-35.0 [facility] Comment on above: Order Comment: No: D o not add to previous draw Result Comment: ALL RESULTS MUST BE INTERPRETED WITH RESPECT TO BLOOD DRAWING ARTIFACT OR DILUTION ERROR OF ANTICOAGULANT AT THE TIME OF SAMPLING. THE APTT SHOULD NOT BE USED TO MONITOR UNFRACTIONATED HEPARIN THERAPY, THIS LABORATORY NO LONGER HAS AN ESTABLISHED THERAPEUTIC RANGE BASED ON THE APTT. IT IS RECOMMENDED THAT THE [facility]FH - HEPARIN ASSAY (ANTI-XA ACTIVITY) BE USED FOR THIS PURPOSE. Performed By: #### 5 7307, 67067 ####[facility] [facility].[address] aPTT Coag (Bld) [Time] 28.9 s Normal 25.0-35.0 [facility] Comment on above: Result Comment: ALL RESULTS MUST BE INTERPRETED WITH RESPECT TO BLOOD DRAWING ARTIFACT OR DILUTION ERROR OF ANTICOAGULANT AT THE TIME OF SAMPLING. THE APTT SHOULD NOT BE USED TO MONITOR UNFRACTIONATED HEPARIN THERAPY, THIS LABORATORY NO LONGER HAS AN ESTABLISHED THERAPEUTIC RANGE BASED ON THE APTT. IT IS RECOMMENDED THAT THE UFH - HEPARIN ASSAY (ANTI-XA ACTIVITY) BE USED FOR THIS PURPOSE. Performed By: #### 5 7307, 60984, 29198 ####[facility] [facility].[address] ARTERIAL BLOOD GAS WITH ICAo n 01-03-2022 BASE EXCESS -4 mmol/L Low -2-3 [facility] Comment on above: Order Comment: Check Chest Tube Position, ON ARRIVAL TO CVU Performed By: #### 8 4511 ####[facility] [place] [address], [facility] [employer] VENTILATOR Normal [facility] Comment on above: Order Comment: Check Chest Tube Position, ON ARRIVAL TO CVU Performed By: #### 8 4511 ####[facility] [place] [address], [facility] FIO2 40 % Normal [facility] Comment on above: Order Comment: Check Chest Tube Position, ON ARRIVAL TO CVU Performed By: #### 8 4511 ####[facility] [place] [address], [facility] HCO3 (Bld) [Moles/Vol] 22 mmol/L Normal 21-28 [facility] Comment on above: Order Comment: Check Chest Tube Position, ON ARRIVAL TO CVU Performed By: #### 8 4511 ####[facility] [place] [address], [facility] IONIZED CALCIUM 1.20 mmol/L Normal 1.13-1.32 [facility] Comment on above: Order Comment: Check Chest Tube Position, ON ARRIVAL TO CVU Performed By: #### 8 4511 ####[facility] [place] [address], [facility] MIN VOLUME 12.1 Normal [facility] Comment on above: Order Comment: Check Chest Tube Position, ON ARRIVAL TO CVU Performed By: #### 8 4511 ####[place] [id number] [place] [address], [facility] MODALITY SIMV Normal [facility] Comment on above: Order Comment: Check Chest Tube Position, ON ARRIVAL TO CVU Performed By: #### 8 4511 ####[place] [id number] [place] [address], [facility] Oxygen (Bld) [Partial pressure] 104 mm[Hg] Normal 83-108 [facility] Comment on above: Order Comment: Check Chest Tube Position, ON ARRIVAL TO CVU Performed By: #### 8 4511 ####[facility] [place] [address], [place] Oxygen saturation in Blood 96.5 % Normal 94.0-97.0 [facility] Comment on above: Order Comment: Check Chest Tube Position, ON ARRIVAL TO CVU Performed By: #### 8 4511 ####[place] [address] [place] [address], [facility] PCO2 41 mmHg Normal 35-45 [facility] Comment on above: Order Comment: Check Chest Tube Position, ON ARRIVAL TO CVU Performed By: #### 8 4511 ####[facility] [place] [address], [facility] PEEP 8.0 CMH20 Normal [facility] Comment on above: Order Comment: Check Chest Tube Position, ON ARRIVAL TO CVU Performed By: #### 8 4511 ####[facility] [place] [address], [facility] pH (Bld) 7.33 [pH] Low 7.35-7.45 [facility] Comment on above: Order Comment: Check Chest Tube Position, ON ARRIVAL TO CVU Performed By: #### 8 4511 ####[facility] [place] [address], [facility] PRESSURE SUPPORT 10 Normal [facility] Comment on above: Order Comment: Check Chest Tube Position, ON ARRIVAL TO CVU Performed By: #### 8 4511 ####[facility] [place] [address], [facility] Respiratory rate 10 /min Normal [facility] Comment on above: Order Comment: Check Chest Tube Position, ON ARRIVAL TO CVU Performed By: #### 8 4511 ####[facility] [place] [address], [facility] TIDAL VOLUME (VT) CC 600 Normal [facility] Comment on above: Order Comment: Check Chest Tube Position, ON ARRIVAL TO CVU Performed By: #### 8 4511 ####[facility] [place] [address], [place] BASE EXCESS -4 mmol/L Low -2-3 [facility] Comment on above: Performed By: #### 8 4511 ####[facility] [place] [address], [facility] [employer] mv Normal [facility] Comment on above: Performed By: #### 8 4511 ####[facility] [place] [address], [place] FIO2 40 % Normal [facility] Comment on above: Performed By: #### 8 4511 ####[facility] [place] [address], [place] HCO3 (Bld) [Moles/Vol] 23 mmol/L Normal 21-28 [facility] Comment on above: Performed By: #### 8 4511 ####[facility] [place] [address], [place] IONIZED CALCIUM 1.20 mmol/L Normal 1.13-1.32 [facility] Comment on above: Performed By: #### 8 4511 ####[facility] [place] [address], [place] MIN VOLUME 8.2 Normal [facility] Comment on above: Performed By: #### 8 4511 ####[facility] [place] [address], [place] MODALITY SIMV Normal [facility] Comment on above: Performed By: #### 8 4511 ####[facility] [place] [address], [place] Oxygen (Bld) [Partial pressure] 94 mm[Hg] Normal 83-108 [facility] Comment on above: Performed By: #### 8 4511 ####[facility] [place] [address], [place] Oxygen saturation in Blood 99 % Normal 94-100 [facility] Comment on above: Performed By: #### 8 4511 ####[facility] [place] [address], [place] Oxygen saturation in Blood 96.3 % Normal 94.0-97.0 [facility] Comment on above: Performed By: #### 8 4511 ####[facility] [place] [address], [facility] PCO2 47 mmHg High 35-45 [facility] Comment on above: Performed By: #### 8 4511 ####[facility] [place] [address], [place] PEEP 8.0 CMH20 Normal [facility] Comment on above: Performed By: #### 8 4511 ####[facility] [place] [address], [facility] pH (Bld) 7.29 [pH] Low 7.35-7.45 [facility] Comment on above: Performed By: #### 8 4511 ####[facility] [place] [address], [facility] PRESSURE SUPPORT 10 Normal [facility] Comment on above: Performed By: #### 8 4511 ####[facility] [place] [address], [facility] Respiratory rate 14 /min Normal [facility] Comment on above: Performed By: #### 8 4511 ####[facility] [place] [address], [facility] TIDAL VOLUME (VT) CC 570 Normal [facility] Comment on above: Performed By: #### 8 4511 ####[facility] [place] [address], [facility] BASE EXCESS -6 mmol/L Low -2-3 [facility] Comment on above: Order Comment: evalu ate Performed By: #### 8 4511 ####[facility] [place] [address], [facility] [employer] MV Normal [facility] Comment on above: Order Comment: evalu ate Performed By: #### 8 4511 ####[facility] [place] [address], [place] FIO2 50 % Normal [facility] Comment on above: Order Comment: evalu ate Performed By: #### 8 4511 ####[facility] [place] [address], [place] HCO3 (Bld) [Moles/Vol] 21 mmol/L Normal 21-28 [facility] Comment on above: Order Comment: evalu ate Performed By: #### 8 4511 ####[facility] [place] [address], [place] IONIZED CALCIUM 1.14 mmol/L Normal 1.13-1.32 [facility] Comment on above: Order Comment: evalu ate Performed By: #### 8 4511 ####[facility] [place] [address], [place] MIN VOLUME 8.9 Normal [facility] Comment on above: Order Comment: evalu ate Performed By: #### 8 4511 ####[facility] [place] [address], [place] MODALITY SIMV Normal [facility] Comment on above: Order Comment: evalu ate Performed By: #### 8 4511 ####[facility] [place] [address], [place] Oxygen (Bld) [Partial pressure] 133 mm[Hg] Critically high 83-108 [facility] Comment on above: Order Comment: evalu ate Performed By: #### 8 4511 ####[facility] [place] [address], [place] Oxygen saturation in Blood 97.4 % High 94.0-97.0 [facility] Comment on above: Order Comment: evalu ate Performed By: #### 8 4511 ####[facility] [place] [address], [place] PCO2 42 mmHg Normal 35-45 [facility] Comment on above: Order Comment: evalu ate Performed By: #### 8 4511 ####[facility] [facility].[address] PEEP 8.0 CMH20 Normal [facility] Comment on above: Order Comment: evalu ate Performed By: #### 8 4511 ####[facility] [facility].[address] pH (Bld) 7.30 [pH] Low 7.35-7.45 [facility] Comment on above: Order Comment: evalu ate Performed By: #### 8 4511 ####[facility] [facility].[address] PRESSURE SUPPORT 10 Normal [facility] Comment on above: Order Comment: evalu ate Performed By: #### 8 4511 ####[facility] [facility].[address] Respiratory rate 14 /min Normal [facility] Comment on above: Order Comment: evalu ate Performed By: #### 8 4511 ####[facility] [facility].[address] TIDAL VOLUME (VT) CC 570 Normal [facility] Comment on above: Order Comment: evalu ate Performed By: #### 8 4511 ####[facility] [facility].[address] BASIC METABOLIC PANELon 06-0 -2021 Calcium [Mass/Vol] 8.6 mg/dL Normal 8.6-10.3 [facility] Comment on above: Order Comment: No: D o not add to previous draw Performed By: #### 0 0071, 45765, 56144 ####[facility] [facility].[address] Chloride [Moles/Vol] 108 mmol/L High 98-107 [facility] Comment on above: Order Comment: No: D o not add to previous draw Performed By: #### 0 0071, 88544, 76358 ####[facility] [place] [address], [place] CO2 [Moles/Vol] 22 mmol/L Normal 21-31 [facility] Comment on above: Order Comment: No: D o not add to previous draw Performed By: #### 0 0071, 55085, 16834 ####[facility] [place] [address], [place] Creatinine [Mass/Vol] 0.97 mg/dL Normal 0.70-1.30 [facility] Comment on above: Order Comment: No: D o not add to previous draw Performed By: #### 0 0071, 97509, 50085 ####[facility] [place] [address], [place] Glucose [Mass/Vol] 177 mg/dL High 70-100 [facility] Comment on above: Order Comment: No: D o not add to previous draw Performed By: #### 0 0071, 06152, 85027 ####[facility] [place] [address], [place] Potassium [Moles/Vol] 4.8 mmol/L Normal 3.5-5.1 [facility] Comment on above: Order Comment: No: D o not add to previous draw Performed By: #### 0 0071, 50390, 97447 ####[facility] [place] [address], [place] Urea nitrogen [Mass/Vol] 12 mg/dL Normal 7-25 [facility] Comment on above: Order Comment: No: D o not add to previous draw Performed By: #### 0 0071, 26029, 26715 ####[facility] [place] [address], [place] Calcium [Mass/Vol] 8.1 mg/dL Low 8.6-10.3 [facility] Comment on above: Performed By: #### 1 0, 23703 ####[facility] [place] [address], [facility] Chloride [Moles/Vol] 107 mmol/L Normal 98-107 [facility] Comment on above: Performed By: #### 1 0, 40495 ####[facility] [place] [address], [facility] CO2 [Moles/Vol] 23 mmol/L Normal 21-31 [facility] Comment on above: Performed By: #### 1 69, 88844 ####[facility] [place] [address], [facility] Creatinine [Mass/Vol] 1.02 mg/dL Normal 0.70-1.30 [facility] Comment on above: Performed By: #### 1 69, 44154 ####[facility] [place] [address], [facility] GFR/1.73 sq M.predicted among blacks MDRD (S/P/Bld) [Vol rate/Area] mL/min/{1.73_m2} Normal >60 [facility] Comment on above: Order Comment: No: D o not add to previous draw Performed By: #### 0 0071, 26203, 61629 ####[facility] [place] [address], [facility] Performed By: #### 1 69, 88986 ####[facility] [place] [address], [place] GFR/1.73 sq M.predicted among non-blacks MDRD (S/P/Bld) [Vol rate/Area] mL/min/{1.73_m2} Normal >60 [facility] Comment on above: Order Comment: No: D o not add to previous draw Performed By: #### 0 0071, 96204, 94575 ####[facility] [place] [address], [facility] Performed By: #### 1 69, 25118 ####[facility] [place] [address], [place] Glucose [Mass/Vol] 124 mg/dL High 70-100 [facility] Comment on above: Performed By: #### 1 69, 00184 ####[facility] [place] [address], [place] Potassium [Moles/Vol] 3.8 mmol/L Normal 3.5-5.1 [facility] Comment on above: Performed By: #### 1 69, ####[place] [id number] [place] [address], [place] Sodium [Moles/Vol] 138 mmol/L Normal 136-145 [facility] Comment on above: Performed By: #### 1 69, ####[facility] [facility].[place] [id number], [facility] Urea nitrogen [Mass/Vol] 11 mg/dL Normal 7-25 [facility] Comment on above: Performed By: #### 1 69, ####[facility] [facility] [id number], [place] Sodium [Moles/Vol] 139 mmol/L Normal 138-146 [facility] Comment on above: Order Comment: No: D o not add to previous draw Performed By: #### 0 0071, , 78680 ####[facility] [place] [address], [facility] Performed By: #### 3 0738 ####[facility] [id number], [facility] CBC COMPLETE BLOOD COUNTon 0 01-03-2022 Erythrocyte distribution width (RBC) [Ratio] 12.7 % Normal 11.5-15.0 [facility] Comment on above: Order Comment: evalu ate Performed By: #### 5 0608 ####[facility] [facility].[address] Hematocrit (Bld) [Volume fraction] 30.8 % Low 39.0-50.0 [facility] Comment on above: Order Comment: evalu ate Performed By: #### 5 0608 ####[facility] Hemoglobin (Bld) [Mass/Vol] 10.9 g/dL Low 13.0-17.0 [facility] Comment on above: Order Comment: evalu ate Performed By: #### 5 0608 ####[facility] MCH (RBC) [Entitic mass] 30.1 pg Normal 27.0-33.0 [facility] Comment on above: Order Comment: evalu ate Performed By: #### 5 0608 ####[facility] MCHC (RBC) [Mass/Vol] 35.4 g/dL High 32.0-35.0 [facility] Comment on above: Order Comment: evalu ate Performed By: #### 5 0608 ####[facility] [facility].[address] MCV (RBC) [Entitic vol] 85.1 fL Normal 82.0-98.0 [facility] Comment on above: Order Comment: evalu ate Performed By: #### 5 0608 ####[facility] [place] [address].[address] PLAT CNT 135 10*3/uL Low 150-400 [facility] Comment on above: Order Comment: evalu ate Performed By: #### 5 0608 ####[facility] [place] [address], [facility] RBC (Bld) [#/Vol] 3.62 10*6/uL Low 4.20-5.70 [facility] Comment on above: Order Comment: evalu ate Performed By: #### 5 0608 ####[facility] [place] [address], [facility] WBC (Bld) [#/Vol] 14.29 10*3/uL High 4.00-10.60 [facility] Comment on above: Order Comment: evalu ate Performed By: #### 5 0608 ####[address] Erythrocyte distribution width (RBC) [Ratio] 12.6 % Normal 11.5-15.0 [facility] Comment on above: Performed By: #### 5 0608 ####[address] Hematocrit (Bld) [Volume fraction] 28.9 % Low 39.0-50.0 [facility] Comment on above: Performed By: #### 5 0608 ####[address] [place] [address], [facility] Hemoglobin (Bld) [Mass/Vol] 10.3 g/dL Low 13.0-17.0 [facility] Comment on above: Performed By: #### 5 0608 ####[address] [place] [address], [facility] MCH (RBC) [Entitic mass] 30.3 pg Normal 27.0-33.0 [facility] Comment on above: Performed By: #### 5 0608 ####[address] [place] [address], [facility] MCHC (RBC) [Mass/Vol] 35.6 g/dL High 32.0-35.0 [facility] Comment on above: Performed By: #### 5 0608 ####[facility] [place] [address], [facility] MCV (RBC) [Entitic vol] 85.0 fL Normal 82.0-98.0 [facility] Comment on above: Performed By: #### 5 0608 ####[facility] [facility].[address] Nucleated RBC/100 WBC (Bld) [Ratio] 0 % Normal 0-0 [facility] Comment on above: Order Comment: evalu ate Performed By: #### 5 0608 ####[place] [id number] [place] [address], [facility] PLAT CNT 127 10*3/uL Low 150-400 [facility] Comment on above: Performed By: #### 5 0608 ####[facility] [place] [address], [facility] RBC (Bld) [#/Vol] 3.40 10*6/uL Low 4.20-5.70 [facility] Comment on above: Performed By: #### 5 0608 ####[facility] [place] [address], [facility] WBC (Bld) [#/Vol] 13.69 10*3/uL High 4.00-10.60 [facility] Comment on above: Performed By: #### 5 0608 ####[facility] [place] [address], [facility] FIBRINOGENon 01-03-2022 FIBRINOGEN 168 mg/dL Normal 150-425 [facility] Comment on above: Performed By: #### 5 7307, 05429, 06005 ####[facility] [place] [address], [facility] LACTATE BLOODon 01-03-2022 Lactate [Moles/Vol] 1.4 mmol/L Normal .5-2.2 [facility] Comment on above: Order Comment: No: D o not add to previous draw Performed By: #### 1 0054 ####[facility] [place] [address], [facility] MAGNESIUM BLOODon 01-03-2022 Magnesium [Mass/Vol] 2.4 mg/dL Normal 1.9-2.7 [facility] Comment on above: Order Comment: No: D o not add to previous draw Performed By: #### 0 0071, 61121, 75045 ####[facility] [facility] [place] [place] [address], [facility] Magnesium [Mass/Vol] 2.9 mg/dL High 1.9-2.7 [facility] Comment on above: Performed By: #### 1 0070, [id number] ####[facility] [place] [address], [facility] PERFUSION BLOOD PANELon BASE EXCESS -4.0 mmol/L Low -2.0-3.0 [facility] Comment on above: Performed By: #### 3 0738 ####[facility] [place] [address], [facility] Glucose [Mass/Vol] 129 mg/dL High 70-105 [facility] Comment on above: Performed By: #### 3 0738 ####[facility] [place] [address], [facility] Hematocrit (Bld) [Volume fraction] 29 % Low 38-51 [facility] Comment on above: Performed By: #### 3 0738 ####[facility] [place] [address], [facility] Hemoglobin (Bld) [Mass/Vol] 9.9 g/dL Low 12.0-17.0 [facility] Comment on above: Performed By: #### 3 0738 ####[facility] [place] [address], [facility] IONIZED CALCIUM 1.22 mmol/L Normal 1.12-1.32 [facility] Comment on above: Performed By: #### 3 0738 ####[facility] [place] [address], [facility] Oxygen (Bld) [Partial pressure] 115.0 mm[Hg] High 80.0-105.0 [facility] Comment on above: Performed By: #### 3 0738 ####[place] [id number] [place] [address], [facility] PCO2 46.3 mmHg High 35.0-45.0 [facility] Comment on above: Performed By: #### 3 0738 ####[place] [id number] [place] [address], [facility] pH (Bld) 7.29 [pH] Low 7.35-7.45 [facility] Comment on above: Performed By: #### 3 0738 ####[place] [id number] [place] [address], [facility] Potassium [Moles/Vol] 3.8 mmol/L Normal 3.5-4.9 [facility] Comment on above: Performed By: #### 3 0738 ####[place] [id number] [place] [address], [facility] Sodium [Moles/Vol] 141 mmol/L Normal 138-146 [facility] Comment on above: Performed By: #### 3 0738 ####[place] [id number] [facility] [place] [place] [address], [facility] BASE EXCESS -3.0 mmol/L Low -2.0-3.0 [facility] Comment on above: Performed By: #### 3 0738 ####[facility] [place] [address], [facility] Glucose [Mass/Vol] 120 mg/dL High 70-105 [facility] Comment on above: Performed By: #### 3 0738 ####[facility] [place] [address], [facility] Hematocrit (Bld) [Volume fraction] 27 % Low 38-51 [facility] Comment on above: Performed By: #### 3 0738 ####[facility] [facility] [place] [place] [address], [facility] Hemoglobin (Bld) [Mass/Vol] 9.2 g/dL Low 12.0-17.0 [facility] Comment on above: Performed By: #### 3 0738 ####[place] [id number] [place] [address], [facility] IONIZED CALCIUM 1.27 mmol/L Normal 1.12-1.32 [facility] Comment on above: Performed By: #### 3 0738 ####[place] [id number] [place] [address], [facility] Oxygen (Bld) [Partial pressure] 215.0 mm[Hg] High 80.0-105.0 [facility] Comment on above: Performed By: #### 3 0738 ####[facility] [place] [address], [facility] PCO2 44.6 mmHg Normal 35.0-45.0 [facility] Comment on above: Performed By: #### 3 0738 ####[place] [id number] [facility] [place] [place] [address], [facility] pH (Bld) 7.32 [pH] Low 7.35-7.45 [facility] Comment on above: Performed By: #### 3 0738 ####[facility] [place] [address], [facility] Potassium [Moles/Vol] 3.9 mmol/L Normal 3.5-4.9 [facility] Comment on above: Performed By: #### 3 0738 ####[facility] [place] [address], [place] Sodium [Moles/Vol] 141 mmol/L Normal 138-146 [facility] Comment on above: Performed By: #### 3 0738 ####[facility] [place] [address], [facility] BASE EXCESS 1.0 mmol/L Normal -2.0-3.0 [facility] Comment on above: Performed By: #### 3 0738 ####[facility] [place] [address], [facility] Glucose [Mass/Vol] 125 mg/dL High 70-105 [facility] Comment on above: Performed By: #### 3 0738 ####[facility] [place] [address], [facility] Hematocrit (Bld) [Volume fraction] 28 % Low 38-51 [facility] Comment on above: Performed By: #### 3 0738 ####[facility] [place] [address], [facility] Hemoglobin (Bld) [Mass/Vol] 9.5 g/dL Low 12.0-17.0 [facility] Comment on above: Performed By: #### 3 0738 ####[facility] [place] [address], [facility] IONIZED CALCIUM 1.73 mmol/L Critically high 1.12-1.32 [facility] Comment on above: Performed By: #### 3 0738 ####[facility] [id number], [facility] Oxygen (Bld) [Partial pressure] 392.0 mm[Hg] High 80.0-105.0 [facility] Comment on above: Performed By: #### 3 0738 ####[facility] [place] [address], [facility] PCO2 42.7 mmHg Normal 35.0-45.0 [facility] Comment on above: Performed By: #### 3 0738 ####[facility] [place] [address], [facility] pH (Bld) 7.39 [pH] Normal 7.35-7.45 [facility] Comment on above: Performed By: #### 3 0738 ####[facility] [place] [address], [facility] Potassium [Moles/Vol] 4.4 mmol/L Normal 3.5-4.9 [facility] Comment on above: Performed By: #### 3 0738 ####[facility] [place] [address], [facility] Sodium [Moles/Vol] 137 mmol/L Low 138-146 [facility] Comment on above: Performed By: #### 3 0738 ####[facility] [facility] [place] [place] [address], [facility] BASE EXCESS 2.0 mmol/L Normal -2.0-3.0 [facility] Comment on above: Performed By: #### 3 0738 ####[facility] [place] [address], [place] Glucose [Mass/Vol] 124 mg/dL High 70-105 [facility] Comment on above: Performed By: #### 3 0738 ####[facility] [place] [address], [place] Hematocrit (Bld) [Volume fraction] 30 % Low 38-51 [facility] Comment on above: Performed By: #### 3 0738 ####[facility] [place] [address], [facility] Hemoglobin (Bld) [Mass/Vol] 10.2 g/dL Low 12.0-17.0 [facility] Comment on above: Performed By: #### 3 0738 ####[facility] [place] [address], [facility] IONIZED CALCIUM 1.14 mmol/L Normal 1.12-1.32 [facility] Comment on above: Performed By: #### 3 0738 ####[facility] [facility] [place] [place] [address], [facility] Oxygen (Bld) [Partial pressure] 333.0 mm[Hg] High 80.0-105.0 [facility] Comment on above: Performed By: #### 3 0738 ####[facility] [place] [address], [facility] PCO2 41.5 mmHg Normal 35.0-45.0 [facility] Comment on above: Performed By: #### 3 0738 ####[facility] [facility] [place] [place] [address], [facility] pH (Bld) 7.41 [pH] Normal 7.35-7.45 [facility] Comment on above: Performed By: #### 3 0738 ####[facility] [place] [address], [place] Potassium [Moles/Vol] 4.3 mmol/L Normal 3.5-4.9 [facility] Comment on above: Performed By: #### 3 0738 ####[facility] [place] [address], [place] Sodium [Moles/Vol] 138 mmol/L Normal 138-146 [facility] Comment on above: Performed By: #### 3 0738 ####[facility] [place] [address], [facility] BASE EXCESS 1.0 mmol/L Normal -2.0-3.0 [facility] Comment on above: Performed By: #### 3 0738 ####[facility] [place] [address], [facility] Glucose [Mass/Vol] 127 mg/dL High 70-105 [facility] Comment on above: Performed By: #### 3 0738 ####[facility] [facility] [place] [address], [facility] Hematocrit (Bld) [Volume fraction] 31 % Low 38-51 [facility] Comment on above: Performed By: #### 3 0738 ####[facility] [facility] [place] [address], [facility] Hemoglobin (Bld) [Mass/Vol] 10.5 g/dL Low 12.0-17.0 [facility] Comment on above: Performed By: #### 3 0738 ####[place] [id number] [place] [address], [facility] IONIZED CALCIUM 1.09 mmol/L Low 1.12-1.32 [facility] Comment on above: Performed By: #### 3 0738 ####[facility] [place] [address], [facility] Oxygen (Bld) [Partial pressure] 351.0 mm[Hg] High 80.0-105.0 [facility] Comment on above: Performed By: #### 3 0738 ####[facility] [place] [address], [facility] PCO2 38.6 mmHg Normal 35.0-45.0 [facility] Comment on above: Performed By: #### 3 0738 ####[facility] [facility] [place] [address], [facility] pH (Bld) 7.43 [pH] Normal 7.35-7.45 [facility] Comment on above: Performed By: #### 3 0738 ####[facility] [place] [address], [facility] Potassium [Moles/Vol] 4.4 mmol/L Normal 3.5-4.9 [facility] Comment on above: Performed By: #### 3 0738 ####[facility] [place] [address], [facility] Sodium [Moles/Vol] 138 mmol/L Normal 138-146 [facility] Comment on above: Performed By: #### 3 0738 ####[facility] [place] [address], [facility] BASE EXCESS 4.0 mmol/L High -2.0-3.0 [facility] Comment on above: Performed By: #### 3 0738 ####[facility] [place] [address], [facility] Glucose [Mass/Vol] 117 mg/dL High 70-105 [facility] Comment on above: Performed By: #### 3 0738 ####[facility] [place] [address], [facility] Hematocrit (Bld) [Volume fraction] 29 % Low 38-51 [facility] Comment on above: Performed By: #### 3 0738 ####[facility] [id number], [facility] Hemoglobin (Bld) [Mass/Vol] 9.9 g/dL Low 12.0-17.0 [facility] Comment on above: Performed By: #### 3 0738 ####[facility] [place] [address], [facility] IONIZED CALCIUM 1.02 mmol/L Low 1.12-1.32 [facility] Comment on above: Performed By: #### 3 0738 ####[facility] [place] [address], [facility] Oxygen (Bld) [Partial pressure] 531.0 mm[Hg] High 80.0-105.0 [facility] Comment on above: Performed By: #### 3 0738 ####[facility] [place] [address], [place] PCO2 42.7 mmHg Normal 35.0-45.0 [facility] Comment on above: Performed By: #### 3 0738 ####[facility] [place] [address], [facility] pH (Bld) 7.43 [pH] Normal 7.35-7.45 [facility] Comment on above: Performed By: #### 3 0738 ####[facility] [place] [address], [place] Potassium [Moles/Vol] 4.1 mmol/L Normal 3.5-4.9 [facility] Comment on above: Performed By: #### 3 0738 ####[place] [id number] [place] [address], [place] BASE EXCESS 0.0 mmol/L Normal -2.0-3.0 [facility] Comment on above: Performed By: #### 3 0738 ####[facility] [place] [address], [place] Glucose [Mass/Vol] 108 mg/dL High 70-105 [facility] Comment on above: Performed By: #### 3 0738 ####[facility] [place] [address], [place] Hematocrit (Bld) [Volume fraction] 27 % Low 38-51 [facility] Comment on above: Performed By: #### 3 0738 ####[facility] [facility] [place] [address], [facility] Hemoglobin (Bld) [Mass/Vol] 9.2 g/dL Low 12.0-17.0 [facility] Comment on above: Performed By: #### 3 0738 ####[facility] [place] [address], [facility] IONIZED CALCIUM 1.04 mmol/L Low 1.12-1.32 [facility] Comment on above: Performed By: #### 3 0738 ####[place] [id number] [place] [address], [facility] Oxygen (Bld) [Partial pressure] 46.0 mm[Hg] Normal [facility] Comment on above: Performed By: #### 3 0738 ####[place] [id number] [place] [address], [facility] PCO2 44.8 mmHg Normal 41.0-51.0 [facility] Comment on above: Performed By: #### 3 0738 ####[place] [id number] [place] [address], [facility] pH (Bld) 7.36 [pH] Normal 7.31-7.41 [facility] Comment on above: Performed By: #### 3 0738 ####[facility] [place] [address], [facility] Potassium [Moles/Vol] 4.5 mmol/L Normal 3.5-4.9 [facility] Comment on above: Performed By: #### 3 0738 ####[facility] [place] [address], [facility] Sodium [Moles/Vol] 140 mmol/L Normal 138-146 [facility] Comment on above: Performed By: #### 3 0738 ####[facility] [place] [address], [facility] BASE EXCESS -1.0 mmol/L Normal -2.0-3.0 [facility] Comment on above: Performed By: #### 3 0738 ####[facility] [place] [address], [facility] Glucose [Mass/Vol] 123 mg/dL High 70-105 [facility] Comment on above: Performed By: #### 3 0738 ####[facility] [place] [address], [facility] Hematocrit (Bld) [Volume fraction] 38 % Normal 38-51 [facility] Comment on above: Performed By: #### 3 0738 ####[facility] [place] [address], [facility] Hemoglobin (Bld) [Mass/Vol] 12.9 g/dL Normal 12.0-17.0 [facility] Comment on above: Performed By: #### 3 0738 ####[place] [id number] [facility] [place] [address], [facility] IONIZED CALCIUM 1.27 mmol/L Normal 1.12-1.32 [facility] Comment on above: Performed By: #### 3 0738 ####[facility] [place] [address], [facility] Oxygen (Bld) [Partial pressure] 146.0 mm[Hg] High 80.0-105.0 [facility] Comment on above: Performed By: #### 3 0738 ####[facility] [facility] [place] [address], [facility] PCO2 47.8 mmHg High 35.0-45.0 [facility] Comment on above: Performed By: #### 3 0738 ####[facility] [place] [address], [facility] pH (Bld) 7.33 [pH] Low 7.35-7.45 [facility] Comment on above: Performed By: #### 3 0738 ####[facility] [place] [address], [facility] Potassium [Moles/Vol] 3.8 mmol/L Normal 3.5-4.9 [facility] Comment on above: Performed By: #### 3 0738 ####[facility] [place] [address], [facility] Sodium [Moles/Vol] 141 mmol/L Normal 138-146 [facility] Comment on above: Performed By: #### 3 0738 ####[facility] [place] [address], [facility] BASE EXCESS 0.0 mmol/L Normal -2.0-3.0 [facility] Comment on above: Performed By: #### 3 0738 ####[facility] Glucose [Mass/Vol] 130 mg/dL High 70-105 [facility] Comment on above: Performed By: #### 3 0738 ####[facility] Hematocrit (Bld) [Volume fraction] 42 % Normal 38-51 [facility] Comment on above: Performed By: #### 3 0738 ####[facility] [place] [address], [facility] Hemoglobin (Bld) [Mass/Vol] 14.3 g/dL Normal 12.0-17.0 [facility] Comment on above: Performed By: #### 3 0738 ####[facility] [place] [address], [facility] IONIZED CALCIUM 1.30 mmol/L Normal 1.12-1.32 [facility] Comment on above: Performed By: #### 3 0738 ####[facility] [place] [address], [facility] Oxygen (Bld) [Partial pressure] 218.0 mm[Hg] High 80.0-105.0 [facility] Comment on above: Performed By: #### 3 0738 ####[facility] [place] [address], [place] PCO2 43.5 mmHg Normal 35.0-45.0 [facility] Comment on above: Performed By: #### 3 0738 ####[facility] [place] [address], [place] pH (Bld) 7.38 [pH] Normal 7.35-7.45 [facility] Comment on above: Performed By: #### 3 0738 ####[facility] [place] [address], [place] Potassium [Moles/Vol] 3.8 mmol/L Normal 3.5-4.9 [facility] Comment on above: Performed By: #### 3 0738 ####[facility] [place] [address], [place] Sodium [Moles/Vol] 141 mmol/L Normal 138-146 [facility] Comment on above: Performed By: #### 3 0738 ####[facility] [place] [address], [place] PHOSPHORUS BLOODon 2 Phosphate [Mass/Vol] 3.4 mg/dL Normal 2.5-5.0 [facility] Comment on above: Order Comment: No: D o not add to previous draw Performed By: #### 0 0071, 12015, 13231 ####[facility] [place] [address], [place] POC GLUCOSE LABon 01-03-2022 Glucose [Mass/Vol] 156 mg/dL High 70-100 [facility] Comment on above: Performed By: #### 8 5499 ####[facility] [facility] [place] [address], [place] Glucose [Mass/Vol] 160 mg/dL High 70-100 [facility] Comment on above: Performed By: #### 8 5499 ####[facility] [facility] [place] [address], [place] Glucose [Mass/Vol] 146 mg/dL High 70-100 [facility] Comment on above: Performed By: #### 8 5499 ####[facility] [facility] [place] [address], [place] Glucose [Mass/Vol] 135 mg/dL High 70-100 [facility] Comment on above: Performed By: #### 8 5499 ####[facility] [facility] [place] [address], [place] Glucose [Mass/Vol] 136 mg/dL High 70-100 [facility] Comment on above: Performed By: #### 8 5499 ####[facility] [place] [address], [facility] PORTABLE CHEST 1 VIEWon PORTABLE CHEST 1 VIEW [facility] Department of Radiology [address] [place] [address] Patient Name: OSWALD OCHOA : 1955 Sex: M Age: Race: White Pt. Location: [place] [address] Patient Status: I Ordered Date: 01/03/2022 4:40:00 PM Completed Date: 01/03/2022 06:02 PM Requesting Provider: FRANCISCO HENLEY Attending Provider: JAZMIN FRANCO Report Copy To: Signs & Symptoms: Post CABG History: Comments: Check Chest Tube Position, ON ARRIVAL TO CVU Exam: PORTABLE CHEST 1 VIEW PORTABLE CHEST 1 VIEW 01/03/2022 6:02 PM CLINICAL INDICATIONS: Post CABG TECHNOLOGIST COMMENTS: Post CABG QUESTION FOR THE RADIOLOGIST: Check Chest Tube Position, ON ARRIVAL TO CVU PROTOCOL: AP(PA) view was obtained. COMPARISON: None FINDINGS: [place] catheter on the right tip in superior vena cava. There is a endotracheal tube present 4.2 cm above the jahaira. Patchy density present in the left upper lobe and lower lobe could represent some atelectasis cannot exclude early pneumonia in the left lower lobe. Right lung is clear IMPRESSION: Tubes and lines as described Patchy density present in the left upper lobe and lower lobe could represent some atelectasis cannot exclude early pneumonia in the left lower lobe Electronically signed: Tang Jeffrey. Transcribed by: [email or web address], User Resident: Electronically Signed by: TANG JEFFREY @ 01/03/2022 06:07 PM Normal [facility] Comment on above: Order Comment: Check Chest Tube Position, ON ARRIVAL TO CVU PROTHROMBIN TIMEon 2 INR Coag (PPP) [Relative time] 1.28 {INR} High 0.91-1.16 [facility] Comment on above: Order Comment: No: D o not add to previous draw Result Comment: ACCC P RECOMMENDED INR FOR WARFARIN THERAPY ------ ------- CONDITION INR PROPHYLAXIS OF VENOUS THROMBOSIS 2-3 (HIGH-RISK SURGERY) TREATMENT OF VENOUS THROMBOSIS 2-3 TREATMENT OF PULMONARY EMBOLISM 2-3 PREVENTION OF SYSTEMIC EMBOLISM: 2-3 ACUTE MYOCARDIAL INFARCTION TISSUE HEART VALVES VALVULAR HEART DISEASE ATRIAL FIBRILLATION RECURRENT SYSTEMIC EMBOLISM MECHANICAL HEART VALVE 2.5-3.5 FROM: ORAL ANTICOAGULANTS. MECHANISM OF ACTION, CLINICAL EFFECTIVENESS, AND OPTIMAL THERAPEUTIC RANGE. CHEST 1995;108:231S-246S. Performed By: #### [id number] ####[place] [id number] [facility].[address] PT Coag (PPP) [Time] 15.9 s High 12.3-14.8 [facility] Comment on above: Order Comment: No: D o not add to previous draw Result Comment: ALL RESULTS MUST BE INTERPRETED WITH RESPECT TO BLOOD DRAWING ARTIFACT OR DILUTION ERROR OF ANTICOAGULANT AT THE TIME OF SAMPLING. Performed By: #### [id number] ####[facility].[address] INR Coag (PPP) [Relative time] 1.45 {INR} High 0.91-1.16 [facility] Comment on above: Result Comment: ACCC P RECOMMENDED INR FOR WARFARIN THERAPY ------ ------- CONDITION INR PROPHYLAXIS OF VENOUS THROMBOSIS 2-3 (HIGH-RISK SURGERY) TREATMENT OF VENOUS THROMBOSIS 2-3 TREATMENT OF PULMONARY EMBOLISM 2-3 PREVENTION OF SYSTEMIC EMBOLISM: 2-3 ACUTE MYOCARDIAL INFARCTION TISSUE HEART VALVES VALVULAR HEART DISEASE ATRIAL FIBRILLATION RECURRENT SYSTEMIC EMBOLISM MECHANICAL HEART VALVE 2.5-3.5 FROM: ORAL ANTICOAGULANTS. MECHANISM OF ACTION, CLINICAL EFFECTIVENESS, AND OPTIMAL THERAPEUTIC RANGE. CHEST 1995;108:231S-246S. Performed By: #### 5 7307, 39080, 79944 ####[facility] PT Coag (PPP) [Time] 17.5 s High 12.3-14.8 [facility] Comment on above: Result Comment: ALL RESULTS MUST BE INTERPRETED WITH RESPECT TO BLOOD DRAWING ARTIFACT OR DILUTION ERROR OF ANTICOAGULANT AT THE TIME OF SAMPLING. Performed By: #### 5 7307, 98671, 87566 ####[facility]3000 [facility].[address] RBC'S 2 UNITSon 01-03-2022 CROSSMATCH INTERP 1 COMP Normal [facility] Comment on above: Performed By: #### 8 6002 ####[facility]3000 [facility].[address] CROSSMATCH INTERP 2 COMP Normal [facility] Comment on above: Performed By: #### 8 6002 ####[facility]3000 [facility].[address] PRODUCT CODE 1 E0685 Normal [facility] Comment on above: Performed By: #### 8 6002 ####[facility]3000 [facility].[address] PRODUCT CODE 2 E0336 Normal [facility] Comment on above: Performed By: #### 8 6002 ####[address] PRODUCT STATUS 1 RE Normal The [facility] Comment on above: Result Comment: Resu lt changed by IF on 01/03/2022 12:35. The previous value was XM. Result changed by IF on 01/03/2022 17:59. The previous value was IS. Result changed by IF on 01/06/2022 07:17. The previous value was XM. Performed By: #### 8 6002 ####[facility]3000 [facility].[address] PRODUCT STATUS 2 RE Normal The [facility] Comment on above: Result Comment: Resu lt changed by IF on 01/03/2022 12:35. The previous value was XM. Result changed by IF on 01/03/2022 17:59. The previous value was IS. Result changed by IF on 01/06/2022 07:17. The previous value was XM. Performed By: #### 8 6002 ####[facility]3000 [place] [address], [facility] UN[facility] ABO 1 O Normal [facility] Comment on above: Performed By: #### 8 6002 ####[facility] [place] [address], [facility] UN[facility] ABO 2 O Normal [facility] Comment on above: Performed By: #### 8 6002 ####[facility] [place] [address], [facility] UN[facility] ID 1 [id number] Normal The [facility] Comment on above: Performed By: #### 8 6002 ####[facility] [place] [address], [facility] UNIT ID 2 [id number] Normal [facility] Comment on above: Performed By: #### 8 6002 ####[facility] [place] [address], [facility] UN[facility] RH 1 Negative Normal [facility] Comment on above: Performed By: #### 8 6002 ####[facility]3000 [place] [address], [facility] UN[facility] RH 2 Negative Normal [facility] Comment on above: Performed By: #### 8 6002 ####[facility]3000 [facility] [id number], [facility] APTTon 01-02-2022 aPTT Coag (Bld) [Time] 32.1 s Normal 25.0-35.0 [facility] Comment on above: Order Comment: post thoracotomy Result Comment: ALL RESULTS MUST BE INTERPRETED WITH RESPECT TO BLOOD DRAWING ARTIFACT OR DILUTION ERROR OF ANTICOAGULANT AT THE TIME OF SAMPLING. THE APTT SHOULD NOT BE USED TO MONITOR UNFRACTIONATED HEPARIN THERAPY, THIS LABORATORY NO LONGER HAS AN ESTABLISHED THERAPEUTIC RANGE BASED ON THE APTT. IT IS RECOMMENDED THAT THE [facility] - HEPARIN ASSAY (ANTI-XA ACTIVITY) BE USED FOR THIS PURPOSE. Performed By: #### 5 7307, 12719 ####[facility]3000 [place] [address], [facility] BASIC METABOLIC PANELon Calcium [Mass/Vol] 9.5 mg/dL Normal 8.6-10.3 [facility] Comment on above: Order Comment: No: D o not add to previous draw Performed By: #### 1 0070, 02527, 92061, 01037 ####[facility]3000 [place] [address], [facility] Chloride [Moles/Vol] 105 mmol/L Normal 98-107 [facility] Comment on above: Order Comment: No: D o not add to previous draw Performed By: #### 1 0070, 69821, 05409, 81113 ####[facility]3000 [place] [address], [facility] CO2 [Moles/Vol] 24 mmol/L Normal 21-31 The [facility] Comment on above: Order Comment: No: D o not add to previous draw Performed By: #### 1 0070, 76781, 35750, 10094 ####[facility] [place] [address], [facility] Creatinine [Mass/Vol] 0.93 mg/dL Normal 0.70-1.30 [facility] Comment on above: Order Comment: No: D o not add to previous draw Performed By: #### 1 0070, 83499, 58471, 61274 ####[facility] [place] [address], [facility] GFR/1.73 sq M.predicted among blacks MDRD (S/P/Bld) [Vol rate/Area] mL/min/{1.73_m2} Normal >60 [facility] Comment on above: Order Comment: No: D o not add to previous draw Performed By: #### 1 0070, 04370, 25138, 64890 ####[facility] [place] [address], [facility] GFR/1.73 sq M.predicted among non-blacks MDRD (S/P/Bld) [Vol rate/Area] mL/min/{1.73_m2} Normal >60 [facility] Comment on above: Order Comment: No: D o not add to previous draw Performed By: #### 1 0070, 24412, 76474, 20736 ####[facility] [place] [address], [facility] Glucose [Mass/Vol] 127 mg/dL High 70-100 [facility] Comment on above: Order Comment: No: D o not add to previous draw Performed By: #### 1 0070, 85964, 64220, 30940 ####[facility] [place] [address], [facility] Potassium [Moles/Vol] 3.9 mmol/L Normal 3.5-5.1 [facility] Comment on above: Order Comment: No: D o not add to previous draw Performed By: #### 1 0070, 03086, 01915, 17749 ####[facility] [place] [address], [facility] Sodium [Moles/Vol] 138 mmol/L Normal 136-145 [facility] Comment on above: Order Comment: No: D o not add to previous draw Performed By: #### 1 0070, 40349, 85705, 84487 ####[facility]3000 [facility].[address] Urea nitrogen [Mass/Vol] 13 mg/dL Normal 7-25 [facility] Comment on above: Order Comment: No: D o not add to previous draw Performed By: #### 1 0070, 71571, 56333, 43587 ####[facility]3000 [facility].[address] CBC COMPLETE BLOOD COUNTon 0 01-02-2022 Erythrocyte distribution width (RBC) [Ratio] 12.8 % Normal 11.5-15.0 [facility] Comment on above: Order Comment: No: D o not add to previous draw Performed By: #### 5 0608 ####[facility]3000 [facility].[address] Hematocrit (Bld) [Volume fraction] 41.4 % Normal 39.0-50.0 [facility] Comment on above: Order Comment: No: D o not add to previous draw Performed By: #### 5 0608 ####[facility]3000 [facility] [place] [place] [address], [facility] Hemoglobin (Bld) [Mass/Vol] 14.6 g/dL Normal 13.0-17.0 [facility] Comment on above: Order Comment: No: D o not add to previous draw Performed By: #### 5 0608 ####[facility] [place] [address], [facility] MCH (RBC) [Entitic mass] 30.1 pg Normal 27.0-33.0 [facility] Comment on above: Order Comment: No: D o not add to previous draw Performed By: #### 5 0608 ####[facility] MCHC (RBC) [Mass/Vol] 35.3 g/dL High 32.0-35.0 [facility] Comment on above: Order Comment: No: D o not add to previous draw Performed By: #### 5 0608 ####[facility] MCV (RBC) [Entitic vol] 85.4 fL Normal 82.0-98.0 [facility] Comment on above: Order Comment: No: D o not add to previous draw Performed By: #### 5 0608 ####[address] Nucleated RBC/100 WBC (Bld) [Ratio] 0 % Normal 0-0 [facility] Comment on above: Order Comment: No: D o not add to previous draw Performed By: #### 5 0608 ####[place] [id number] [address] PLAT CNT 218 10*3/uL Normal 150-400 The [facility] Comment on above: Order Comment: No: D o not add to previous draw Performed By: #### 5 0608 ####[address] RBC (Bld) [#/Vol] 4.85 10*6/uL Normal 4.20-5.70 [facility] Comment on above: Order Comment: No: D o not add to previous draw Performed By: #### 5 0608 ####[address] WBC (Bld) [#/Vol] 6.95 10*3/uL Normal 4.00-10.60 [facility] Comment on above: Order Comment: No: D o not add to previous draw Performed By: #### 5 0608 ####[facility]3000 [place] [address], [facility] LIPID PROFILEon 01-02-2022 Cholesterol [Mass/Vol] 110 mg/dL Low 120-200 [facility] Comment on above: Order Comment: Check Chest Tube Position, ON ARRIVAL TO CVU Result Comment: CHOL ESTEROL REFERENCE RANGE: 20 YEARS AND OLDER CARDIOVASCULAR RISK Less than 200 mg/dl Low Risk 200 to 239 mg/dl Borderline Risk 240 mg/dl and greater High Risk Performed By: #### 4 6413 ####[facility]3000 [place] [address], [facility] Cholesterol in HDL [Mass/Vol] 29 mg/dL Normal 23-92 [facility] Comment on above: Order Comment: Check Chest Tube Position, ON ARRIVAL TO CVU Result Comment: Slig ht variation in normal range could be due to gender and/or age. HDL CHOLESTEROL REFERENCE RANGE: 20 years and older Cardiovascular Risk > or =60 mg/dL Desirable 40 TO 59 mg/dL Low Risk <40 mg/dL High Risk Performed By: #### 4 6413 ####[facility]3000 [place] [address], [facility] Cholesterol in LDL [Mass/Vol] 56 mg/dL Normal 0-130 [facility] Comment on above: Order Comment: Check Chest Tube Position, ON ARRIVAL TO CVU Result Comment: LDL IS A CALCULATION LDL IS ONLY VALID IF THE TRIG IS LESS THAN 400. Performed By: #### 4 6413 ####[facility]3000 [place] [address], [facility] Cholesterol.total/C holesterol in HDL [Mass ratio] 3.8 {ratio} Normal .0-4.5 [facility] Comment on above: Order Comment: Check Chest Tube Position, ON ARRIVAL TO CVU Performed By: #### 4 6413 ####[facility] NON-HDL CHOLESTEROL 81 mg/dL Normal The [facility] Comment on above: Order Comment: Check Chest Tube Position, ON ARRIVAL TO CVU Performed By: #### 4 6413 ####[facility] [place] [address], [facility] Triglyceride [Mass/Vol] 124 mg/dL Normal 40-149 [facility] Comment on above: Order Comment: Check Chest Tube Position, ON ARRIVAL TO CVU Result Comment: TRIG LYCERIDE REFERENCE RANGE: 20 YEARS AND OLDER CARDIOVASCULAR RISK LESS THAN 150 mg/dl LOW RISK 150 TO 199 mg/dl BORDERLINE RISK 200 mg/dl AND GREATER HIGH RISK Performed By: #### 4 6413 ####[facility] VLDL CHOL 25 mg/dL Normal 0-40 [facility] Comment on above: Order Comment: Check Chest Tube Position, ON ARRIVAL TO CVU Performed By: #### 4 6413 ####[facility] [place] [address], [facility] MAGNESIUM BLOODon 01-02-2022 Magnesium [Mass/Vol] 2.1 mg/dL Normal 1.9-2.7 [facility] Comment on above: Order Comment: No: D o not add to previous draw Performed By: #### 1 0070, 68578, 15681, 37827 ####[facility] [place] [address], [facility] PHOSPHORUS BLOODon 2 Phosphate [Mass/Vol] 3.9 mg/dL Normal 2.5-5.0 [facility] Comment on above: Order Comment: No: D o not add to previous draw Performed By: #### 1 0070, 30424, 95604, 44841 ####[facility] [place] [address], [facility] POC GLUCOSE LABon 01-02-2022 Glucose [Mass/Vol] 149 mg/dL High 70-100 [facility] Comment on above: Performed By: #### 8 5499 ####[facility]3000 [place] [address], [facility] Glucose [Mass/Vol] 129 mg/dL High 70-100 [facility] Comment on above: Performed By: #### 8 5499 ####[facility]3000 [place] [address], [place] Glucose [Mass/Vol] 203 mg/dL High 70-100 [facility] Comment on above: Performed By: #### 8 5499 ####[facility]3000 [place] [address], [place] Glucose [Mass/Vol] 139 mg/dL High 70-100 [facility] Comment on above: Performed By: #### 8 5499 ####[facility]3000 [place] [address], [facility] Glucose [Mass/Vol] 153 mg/dL High 70-100 [facility] Comment on above: Performed By: #### 8 5499 ####[facility]3000 [place] [address], [facility] POC SARS COV2 ANTIGEN NEGATI VEon 01-02-2022 POC SARS COV2 ANTIGEN NEG Negative Normal NEGATIVE [facility] Comment on above: Result Comment: Nega tive results should be treated as presumptive and confirmation with a molecular assay, if necessary, for patient management, may be performed. Negative results do not rule out SARS-CoV-2 infection and not should be used as the sole basis for treatment or patient management decisions, including infection control decisions. Negative results should be considered in the context of a patient's recent exposures, history, and the presence of clinical signs and symptoms consistent with COVID-19. The Clarity COVID-19 Antigen Rapid Test Cassette is a rapid chromatographic immunoassay intended for the qualitative detection of the nucleocapsid protein antigen from SARS-CoV-2 in direct nasopharyngeal swab (WINE BOTTLE INSPECTOR) specimens from individuals who are suspected of COVID-19 by their healthcare provider within the first six days of symptom onset. Testing is limited to laboratories certified under the Clinical Laboratory Improvement Amendments of 1988 (CLIA), 42 U.S.C. ???263a, that meet the requirements to perform moderate complexity, high complexity, or waived tests. This test is authorized for use at the Point of Care (POC), i.e., in patient care settings operating under a CLIA Certificate of Waiver, Certificate of Compliance, or Certificate of Accreditation. Performed By: #### 3 2044 ####[facility] PORTABLE CHEST 1 VIEWon PORTABLE CHEST 1 VIEW [facility] Department of Radiology [address] [place] [address] Patient Name: OSWALD OCHOA : 1955 Sex: M Age: Race: White Pt. Location: [id number] Patient Status: I Ordered Date: 01/02/2022 9:50:00 AM Completed Date: 01/02/2022 10:36 AM Requesting Provider: FRANCISCO HENLEY Attending Provider: JAZMIN FRANCO Report Copy To: Signs & Symptoms: Post OP History: Comments: post thoracotomy Exam: PORTABLE CHEST 1 VIEW PORTABLE CHEST 1 VIEW 01/02/2022 10:36 AM CLINICAL INDICATIONS: Post OP TECHNOLOGIST COMMENTS: shortness of breath QUESTION FOR THE RADIOLOGIST: post thoracotomy PROTOCOL: AP(PA) view was obtained. COMPARISON: 01/02/2020 FINDINGS: Upper mediastinum unremarkable hilar regions are normal. Heart normal size. Right lung clear. Small amount of linear atelectasis or scarring in the left lung base unchanged IMPRESSION: Upper mediastinum unremarkable hilar regions are normal. Heart normal size. Right lung clear. Small amount of linear atelectasis or scarring in the left lung base unchanged Electronically signed: Tang Jeffrey. Transcribed by: [email or web address], User Resident: Electronically Signed by: TANG JEFFREY @ 01/02/2022 10:53 AM Normal [facility] Comment on above: Order Comment: post thoracotomy PROTHROMBIN TIMEon 2 INR Coag (PPP) [Relative time] 1.01 {INR} Normal 0.91-1.16 [facility] Comment on above: Order Comment: post thoracotomy Result Comment: ACCC P RECOMMENDED INR FOR WARFARIN THERAPY ------ ------- CONDITION INR PROPHYLAXIS OF VENOUS THROMBOSIS 2-3 (HIGH-RISK SURGERY) TREATMENT OF VENOUS THROMBOSIS 2-3 TREATMENT OF PULMONARY EMBOLISM 2-3 PREVENTION OF SYSTEMIC EMBOLISM: 2-3 ACUTE MYOCARDIAL INFARCTION TISSUE HEART VALVES VALVULAR HEART DISEASE ATRIAL FIBRILLATION RECURRENT SYSTEMIC EMBOLISM MECHANICAL HEART VALVE 2.5-3.5 FROM: ORAL ANTICOAGULANTS. MECHANISM OF ACTION, CLINICAL EFFECTIVENESS, AND OPTIMAL THERAPEUTIC RANGE. CHEST 1995;108:231S-246S. Performed By: #### 5 7307, 00763 ####[facility] PT Coag (PPP) [Time] 13.3 s Normal 12.3-14.8 [facility] Comment on above: Order Comment: post thoracotomy Result Comment: ALL RESULTS MUST BE INTERPRETED WITH RESPECT TO BLOOD DRAWING ARTIFACT OR DILUTION ERROR OF ANTICOAGULANT AT THE TIME OF SAMPLING. Performed By: #### 5 7307, 23011 ####[facility]3000 [facility].[address] RBC'S 2 UNITSon 01-02-2022 CROSSMATCH INTERP 1 COMP Normal [facility] Comment on above: Performed By: #### 8 6002 ####[facility]3000 [facility].[address] CROSSMATCH INTERP 2 COMP Normal [facility] Comment on above: Performed By: #### 8 6002 ####[facility]3000 [facility].[address] PRODUCT CODE 1 E0336 Normal [facility] Comment on above: Performed By: #### 8 6002 ####[facility]3000 [facility].[address] PRODUCT CODE 2 E0336 Normal [facility] Comment on above: Performed By: #### 8 6002 ####[facility]3000 [facility].[address] PRODUCT STATUS 1 RE Normal The [facility] Comment on above: Result Comment: Resu lt changed by IF on 01/03/2022 12:35. The previous value was XM. Result changed by IF on 01/03/2022 17:59. The previous value was IS. Result changed by IF on 01/06/2022 07:17. The previous value was XM. Performed By: #### 8 6002 ####[facility]3000 [facility].[address] PRODUCT STATUS 2 RE Normal [facility] Comment on above: Result Comment: Resu lt changed by IF on 01/03/2022 12:35. The previous value was XM. Result changed by IF on 01/03/2022 17:59. The previous value was IS. Result changed by IF on 01/06/2022 07:17. The previous value was XM. Performed By: #### 8 6002 ####[facility] [place] [facility].[address] UNIT ABO 1 O Normal [facility] Comment on above: Performed By: #### 8 6002 ####[facility]3000 [facility].[address] UNIT ABO 2 O Normal [facility] Comment on above: Performed By: #### 8 6002 ####[facility]3000 [facility].[address] UNIT ID 1 [id number] Normal The [facility] Comment on above: Performed By: #### 8 6002 ####[facility]3000 [facility].[address] UNIT ID 2 [id number] Normal The [facility] Comment on above: Performed By: #### 8 6002 ####[facility]3000 [facility].[address] UNIT RH 1 Negative Normal [facility] Comment on above: Performed By: #### 8 6002 ####[facility]3000 [facility].[address] UNIT RH 2 Negative Normal [facility] Comment on above: Performed By: #### 8 6002 ####[facility] TROPONIN-Ion 01-02-2022 Troponin I.cardiac [Mass/Vol] 0.00 ng/mL Normal 0.00-0.04 [facility] Comment on above: Result Comment: REFE RENCE RANGES: 0.00 - 0.04 ng/ml NORMAL 0.05 - 0.50 ng/ml INDETERMINATE > 0.50 ng/ml CONSISTENT WITH AN M.I. Performed By: #### 1 0070, 68629, 22064, 86655 ####[facility]3000 [facility].[address] TYPE AND SCREENon 01-02-2022 ABO INTERPRETATION O Normal [facility] Comment on above: Performed By: #### 6 2586 ####[facility]3000 [facility].[address] RH INTERPRETATION Negative Normal The [facility] Comment on above: Performed By: #### 6 2586 ####[facility]3000 [facility].[address] URINALYSIS REFLEXon 01-03-20 22 Appearance (U) CLEAR Normal CLEAR [facility] Comment on above: Order Comment: No: D o not add to previous drawCriteria for reflexing a culture was not met. Please call the lab [email or web address] within 24 hours of collection time if culture is needed Performed By: #### 3 0965 ####[place] [id number] [facility].[address] Bilirubin Ql (U) Negative Normal NEGATIVE The [facility] Comment on above: Order Comment: No: D o not add to previous drawCriteria for reflexing a culture was not met. Please call the lab [id number] within 24 hours of collection time if culture is needed Performed By: #### 3 0965 ####[facility]3000 [facility].[address] Color (U) YELLOW Normal YELLOW [facility] Comment on above: Order Comment: No: D o not add to previous drawCriteria for reflexing a culture was not met. Please call the lab [email or web address] within 24 hours of collection time if culture is needed Performed By: #### 3 0965 ####[address] EPIS NONE SEEN Normal FEW,OCC,NONE SEEN [facility] Comment on above: Order Comment: No: D o not add to previous drawCriteria for reflexing a culture was not met. Please call the lab [id number] within 24 hours of collection time if culture is needed Performed By: #### 3 0965 ####[facility] [place] [address], [facility] Glucose Ql (U) Negative Normal NEGATIVE [facility] Comment on above: Order Comment: No: D o not add to previous drawCriteria for reflexing a culture was not met. Please call the lab [email or web address] within 24 hours of collection time if culture is needed Performed By: #### 3 0965 ####[facility]3000 [place] [address], [facility] Hemoglobin Ql (U) Negative Normal NEGATIVE The [facility] Comment on above: Order Comment: No: D o not add to previous drawCriteria for reflexing a culture was not met. Please call the lab [id number] within 24 hours of collection time if culture is needed Performed By: #### 3 0965 ####[facility]3000 [place] [address], [facility] KETONE Negative Normal NEGATIVE [facility] Comment on above: Order Comment: No: D o not add to previous drawCriteria for reflexing a culture was not met. Please call the lab [id number] within 24 hours of collection time if culture is needed Performed By: #### 3 0965 ####[facility] [place] [address], [place] LE[place] ASIF Negative Normal NEGATIVE [facility] Comment on above: Order Comment: No: D o not add to previous drawCriteria for reflexing a culture was not met. Please call the lab [id number] within 24 hours of collection time if culture is needed Performed By: #### 3 0965 ####[facility] [place] [address], [place] Nitrite Ql (U) Negative Normal NEGATIVE [facility] Comment on above: Order Comment: No: D o not add to previous drawCriteria for reflexing a culture was not met. Please call the lab [id number] within 24 hours of collection time if culture is needed Performed By: #### 3 0965 ####[facility]3000 [facility].[address] pH (U) 7.0 [pH] Normal 5.0-8.0 [facility] Comment on above: Order Comment: No: D o not add to previous drawCriteria for reflexing a culture was not met. Please call the lab [id number] within 24 hours of collection time if culture is needed Performed By: #### 3 0965 ####[facility] Protein Ql (U) Negative Normal NEGATIVE [facility] Comment on above: Order Comment: No: D o not add to previous drawCriteria for reflexing a culture was not met. Please call the lab [email or web address] within 24 hours of collection time if culture is needed Performed By: #### 3 0965 ####[place] [id number] [facility].[address] RBC NONE SEEN Normal NONE SEEN [facility] Comment on above: Order Comment: No: D o not add to previous drawCriteria for reflexing a culture was not met. Please call the lab [id number] within 24 hours of collection time if culture is needed Performed By: #### 3 0965 ####[facility]3000 [facility].[address] SPEC GRAV 1.009 Low 1.015-1.020 The [facility] Comment on above: Order Comment: No: D o not add to previous drawCriteria for reflexing a culture was not met. Please call the lab [id number] within 24 hours of collection time if culture is needed Performed By: #### 3 0965 ####[facility] [place] [address], [facility] UA COMMENT 2 UROBILINOGEN (E.U./DL)= 2.0 Normal [facility] Comment on above: Order Comment: No: D o not add to previous drawCriteria for reflexing a culture was not met. Please call the lab [id number] within 24 hours of collection time if culture is needed Performed By: #### 3 0965 ####[facility] WBC UA NONE SEEN Normal NONE SEEN [facility] Comment on above: Order Comment: No: D o not add to previous drawCriteria for reflexing a culture was not met. Please call the lab [id number] within 24 hours of collection time if culture is needed Performed By: #### 3 0965 ####[facility] APTTon 01-01-2022 aPTT Coag (Bld) [Time] 31.6 s Normal 25.0-35.0 [facility] Comment on above: Order Comment: post thoracotomy Result Comment: ALL RESULTS MUST BE INTERPRETED WITH RESPECT TO BLOOD DRAWING ARTIFACT OR DILUTION ERROR OF ANTICOAGULANT AT THE TIME OF SAMPLING. THE APTT SHOULD NOT BE USED TO MONITOR UNFRACTIONATED HEPARIN THERAPY, THIS LABORATORY NO LONGER HAS AN ESTABLISHED THERAPEUTIC RANGE BASED ON THE APTT. IT IS RECOMMENDED THAT THE [facility]FH - HEPARIN ASSAY (ANTI-XA ACTIVITY) BE USED FOR THIS PURPOSE. Performed By: #### 5 6101, 58076 ####[facility] BASIC METABOLIC PANELon 06- Calcium [Mass/Vol] 9.6 mg/dL Normal 8.6-10.3 [facility] Comment on above: Order Comment: Check Chest Tube Position, ON ARRIVAL TO CVU Performed By: #### 3 5200, 51030, 54036, 21851 ####[facility] Chloride [Moles/Vol] 105 mmol/L Normal 98-107 [facility] Comment on above: Order Comment: Check Chest Tube Position, ON ARRIVAL TO CVU Performed By: #### 3 5200, 34883, 21628, 46051 ####[facility] [place] [address], [facility] CO2 [Moles/Vol] 25 mmol/L Normal 21-31 [facility] Comment on above: Order Comment: Check Chest Tube Position, ON ARRIVAL TO CVU Performed By: #### 3 5200, 87686, 32215, 67591 ####[facility] [place] [address], [facility] Creatinine [Mass/Vol] 1.03 mg/dL Normal 0.70-1.30 [facility] Comment on above: Order Comment: Check Chest Tube Position, ON ARRIVAL TO CVU Performed By: #### 3 5200, 46275, 98114, 26474 ####[facility] [place] [address], [place] GFR/1.73 sq M.predicted among blacks MDRD (S/P/Bld) [Vol rate/Area] mL/min/{1.73_m2} Normal >60 [facility] Comment on above: Order Comment: Check Chest Tube Position, ON ARRIVAL TO CVU Performed By: #### 3 5200, 64949, 50196, 39887 ####[facility] [place] [address], [place] GFR/1.73 sq M.predicted among non-blacks MDRD (S/P/Bld) [Vol rate/Area] mL/min/{1.73_m2} Normal >60 [facility] Comment on above: Order Comment: Check Chest Tube Position, ON ARRIVAL TO CVU Performed By: #### 3 5200, 98825, 63828, 72760 ####[facility] [place] [address], [place] Glucose [Mass/Vol] 101 mg/dL High 70-100 The [facility] Comment on above: Order Comment: Check Chest Tube Position, ON ARRIVAL TO CVU Performed By: #### 3 5200, 29669, 32428, 12725 ####[facility]3000 [facility] [place] [place] [address], [facility] Potassium [Moles/Vol] 3.9 mmol/L Normal 3.5-5.1 [facility] Comment on above: Order Comment: Check Chest Tube Position, ON ARRIVAL TO CVU Performed By: #### 3 5200, 02819, 37805, 77935 ####[facility] [facility] [place] [place] [address], [facility] Sodium [Moles/Vol] 138 mmol/L Normal 136-145 [facility] Comment on above: Order Comment: Check Chest Tube Position, ON ARRIVAL TO CVU Performed By: #### 3 5200, 07572, 42561, 40757 ####[facility] [facility] [place] [address], [facility] Urea nitrogen [Mass/Vol] 13 mg/dL Normal 7-25 [facility] Comment on above: Order Comment: Check Chest Tube Position, ON ARRIVAL TO CVU Performed By: #### 3 5200, 43567, 49329, 39532 ####[facility]3000 [facility].[address] BNP (B-TYPE NATRIURETIC PEPT [place])on 01-01-2022 Natriuretic peptide B (Bld) [Mass/Vol] 19 pg/mL Normal 0-100 The [facility] Comment on above: Order Comment: Check Chest Tube Position Result Comment: Give n the appropriate clinical setting a BNP result of >100 pg/mL indicates congestive heart failure. Performed By: #### 8 5123 ####[facility]3000 [facility] [place] [place] [address], [facility] CBC W/DIFFon 01-01-2022 ABS IMM GRANS 0.0 10*3/uL Normal 0.0-0.2 [facility] Comment on above: Performed By: #### 5 0103 ####[facility] [place] [address], [facility] ABS NEUTROPHILS 4.9 10*3/uL Normal 1.6-7.6 [facility] Comment on above: Performed By: #### 5 0103 ####[facility] [place] [address], [facility] Basophils (Bld) [#/Vol] 0.0 10*3/uL Normal 0.0-0.2 [facility] Comment on above: Performed By: #### 5 0103 ####[facility] [place] [address], [facility] Basophils/100 WBC (Bld) 0.5 % Normal 0.0-1.0 [facility] Comment on above: Performed By: #### 5 0103 ####[facility] [place] [address], [facility] Eosinophils (Bld) [#/Vol] 0.1 10*3/uL Normal 0.0-0.5 [facility] Comment on above: Performed By: #### 5 0103 ####[facility] [place] [address], [facility] Eosinophils/100 WBC (Bld) 1.8 % Normal 0.0-6.0 [facility] Comment on above: Performed By: #### 5 0103 ####[facility] [place] [address], [facility] Erythrocyte distribution width (RBC) [Ratio] 12.6 % Normal 11.5-15.0 [facility] Comment on above: Performed By: #### 5 3 ####[facility] [place] [address], [facility] Hematocrit (Bld) [Volume fraction] 40.4 % Normal 39.0-50.0 [facility] Comment on above: Performed By: #### 5 0103 ####[facility]3000 [facility].[address] Hemoglobin (Bld) [Mass/Vol] 14.2 g/dL Normal 13.0-17.0 [facility] Comment on above: Performed By: #### 5 0103 ####[facility] IMMATURE GRANS 0.3 % Normal 0.0-1.0 [facility] Comment on above: Performed By: #### 5 0103 ####[address] Lymphocytes (Bld) [#/Vol] 2.2 10*3/uL Normal 1.2-4.0 [facility] Comment on above: Performed By: #### 5 0103 ####[facility] Lymphocytes/100 WBC (Bld) 28.0 % Normal 20.0-45.0 [facility] Comment on above: Performed By: #### 5 0103 ####[facility] MCH (RBC) [Entitic mass] 30.1 pg Normal 27.0-33.0 [facility] Comment on above: Performed By: #### 5 0103 ####[facility] MCHC (RBC) [Mass/Vol] 35.1 g/dL High 32.0-35.0 [facility] Comment on above: Performed By: #### 5 0103 ####[facility] [place] [address], [facility] MCV (RBC) [Entitic vol] 85.6 fL Normal 82.0-98.0 [facility] Comment on above: Performed By: #### 5 0103 ####[facility]3000 [place] [address], [facility] Monocytes (Bld) [#/Vol] 0.7 10*3/uL Normal 0.1-1.0 [facility] Comment on above: Performed By: #### 5 0103 ####[facility]3000 [facility].[address] MONOS 8.5 % Normal 5.0-12.0 [facility] Comment on above: Performed By: #### 5 3 ####[facility]3000 [place] [address], [facility] Neutrophils/100 WBC (Bld) 60.9 % Normal 40.0-72.0 [facility] Comment on above: Performed By: #### 5 3 ####[facility]3000 [place] [address], [facility] Nucleated RBC/100 WBC (Bld) [Ratio] 0 % Normal 0-0 [facility] Comment on above: Performed By: #### 5 3 ####[facility]3000 [facility].[address] PLAT CNT 237 10*3/uL Normal 150-400 The [facility] Comment on above: Performed By: #### 5 3 ####[facility]3000 [place] [address], [facility] RBC (Bld) [#/Vol] 4.72 10*6/uL Normal 4.20-5.70 The [facility] Comment on above: Performed By: #### 5 3 ####[facility] [place] [address], [facility] WBC (Bld) [#/Vol] 7.96 10*3/uL Normal 4.00-10.60 [facility] Comment on above: Performed By: #### 5 0103 ####[facility] [place] [address], [facility] HEMOGLOBIN A1Con 01-01-2022 Glucose [Moles/Vol] 137 mmol/L Normal The [facility] Comment on above: Order Comment: evalu ate Performed By: #### 3 1791 ####[facility] [place] [address], [facility] HbA1c (Bld) [Mass fraction] 6.4 % High 4.0-6.0 [facility] Comment on above: Order Comment: evalu ate Performed By: #### 3 1791 ####[facility] [place] [address], [facility] MAGNESIUM BLOODon 01-01-2022 Magnesium [Mass/Vol] 2.1 mg/dL Normal 1.9-2.7 [facility] Comment on above: Order Comment: Check Chest Tube Position, ON ARRIVAL TO CVU Performed By: #### 3 5200, 12653, 30161, 47778 ####[facility] [facility] [place] [address], [facility] PHOSPHORUS BLOODon 2 Phosphate [Mass/Vol] 3.7 mg/dL Normal 2.5-5.0 [facility] Comment on above: Order Comment: Check Chest Tube Position, ON ARRIVAL TO CVU Performed By: #### 3 5200, 28276, 01124, 69149 ####[facility] [place] [address], [place] POC GLUCOSE LABon 01-01-2022 Glucose [Mass/Vol] 192 mg/dL High 70-100 [facility] Comment on above: Performed By: #### 8 5499 ####[facility] [place] [address], [place] Glucose [Mass/Vol] 124 mg/dL High 70-100 [facility] Comment on above: Performed By: #### 8 5499 ####[facility] PORTABLE CHEST 1 VIEWon PORTABLE CHEST 1 VIEW [facility] Department of Radiology [address] [place] [address] Patient Name: OSWALD OCHOA : 1955 Sex: M Age: Race: White Pt. Location: [address] [place] [address] Patient Status: I Ordered Date: 01/01/2022 4:50:00 PM Completed Date: 01/01/2022 05:46 PM Requesting Provider: ALEJO MOSS Attending Provider: LEX ARROYO Report Copy To: Signs & Symptoms: Chest Pain History: Comments: Exam: PORTABLE CHEST 1 VIEW PORTABLE CHEST 1 VIEW 01/01/2022 5:46 PM CLINICAL INDICATIONS: Chest Pain TECHNOLOGIST COMMENTS: Chest Pain QUESTION FOR THE RADIOLOGIST: PROTOCOL: AP(PA) view was obtained. COMPARISON: None Impression: 1. The lungs are clear. There are no effusions or pneumothorax. The mediastinal structures are unremarkable. Electronically signed: Dia Hodges. Transcribed by: [id number], User Resident: Electronically Signed by: DIA HODGES @ 01/01/2022 05:51 PM Normal [facility] PROTHROMBIN TIMEon 2 INR Coag (PPP) [Relative time] 0.99 {INR} Normal 0.91-1.16 [facility] Comment on above: Order Comment: post thoracotomy Result Comment: ACCC P RECOMMENDED INR FOR WARFARIN THERAPY ------ ------- CONDITION INR PROPHYLAXIS OF VENOUS THROMBOSIS 2-3 (HIGH-RISK SURGERY) TREATMENT OF VENOUS THROMBOSIS 2-3 TREATMENT OF PULMONARY EMBOLISM 2-3 PREVENTION OF SYSTEMIC EMBOLISM: 2-3 ACUTE MYOCARDIAL INFARCTION TISSUE HEART VALVES VALVULAR HEART DISEASE ATRIAL FIBRILLATION RECURRENT SYSTEMIC EMBOLISM MECHANICAL HEART VALVE 2.5-3.5 FROM: ORAL ANTICOAGULANTS. MECHANISM OF ACTION, CLINICAL EFFECTIVENESS, AND OPTIMAL THERAPEUTIC RANGE. CHEST 1995;108:231S-246S. Performed By: #### 5 6101, 32724 ####[facility]3000 [facility].[address] PT Coag (PPP) [Time] 13.1 s Normal 12.3-14.8 [facility] Comment on above: Order Comment: post thoracotomy Result Comment: ALL RESULTS MUST BE INTERPRETED WITH RESPECT TO BLOOD DRAWING ARTIFACT OR DILUTION ERROR OF ANTICOAGULANT AT THE TIME OF SAMPLING. Performed By: #### 5 6101, 81757 ####[facility] [place] [address], [facility] TROPONIN-Ion 01-01-2022 Troponin I.cardiac [Mass/Vol] 0.00 ng/mL Normal 0.00-0.04 [facility] Comment on above: Order Comment: Check Chest Tube Position Result Comment: REFE RENCE RANGES: 0.00 - 0.04 ng/ml NORMAL 0.05 - 0.50 ng/ml INDETERMINATE > 0.50 ng/ml CONSISTENT WITH AN M.I. Performed By: #### 3 5200 ####[facility] Troponin I.cardiac [Mass/Vol] 0.00 ng/mL Normal 0.00-0.04 [facility] Comment on above: Order Comment: Check Chest Tube Position, ON ARRIVAL TO CVU Result Comment: REFE RENCE RANGES: 0.00 - 0.04 ng/ml NORMAL 0.05 - 0.50 ng/ml INDETERMINATE > 0.50 ng/ml CONSISTENT WITH AN M.I. Performed By: #### 3 5200, 80406, 74817, 61980 ####[facility] Cardiovascular Lab Reporton 12-19-2021 Cardiovascular Lab Report [facility] Patient Name: [facility] MR #: [id number] Physician: Alissa Department of MD [facility] Medicine Service Date: 12/18/2021 Division of Birthdate: 1955 Cardiology Room #: Adult Cardiovascular Services [facility] [address] [place] [address] Cardiovascular Laboratory Report PROCEDURES PERFORMED: 1. Bilateral selective coronary angiography. 2. Left heart catheterization. FINAL IMPRESSIONS: 1. Severe 3 vessel southern ute coronary artery disease. 2. Normal LVEDP. RECOMMENDATIONS: 1. CT surgical evaluation for CABG. 2. Aggressive risk factor modification. 3. Optimization of medical management for coronary artery disease: Aspirin 81 mg daily, high-intensity statin, and beta-taylor/CRISTAL/ARB as tolerated. 4. Follow up with Marcelino Stern NP, in Cardiology Clinic. PROCEDURE IN DETAIL: After risks, benefits, alternatives were explained, written informed consent was obtained. The patient was prepped and draped in usual sterile fashion. Using 1% lidocaine solution, local infiltration of anesthesia was achieved over the right radial artery. Using a micropuncture kit, access to the right radial artery was obtained. Bilateral selective coronary angiography was performed using the JR5 and JL3.5 coronary catheters. After reviewing the images, it was decided to conclude the procedure. The patient tolerated the procedure well. There were no immediate complications. He was to be transferred to recovery in stable condition. FINDINGS: Hemodynamics: 1. AO 123/72 (94). 2. LV 129/9 (10). Coronary arteries: 1. Left main: This arises from the left coronary cusp. It bifurcates into the LAD and LCX. This is patent and without significant stenosis. 2. LAD: There is 80% heavily calcified stenosis in the proximal midportion of the vessel. 3. LCX: There is 90% stenosis in the ostium of the second obtuse marginal branch, followed by 90% stenosis in the midportion of the vessel. Additionally, there is 80% stenosis at the origin of the third obtuse marginal branch. Otherwise, vessels patent. 4. RCA: This arises from the right coronary cusp. It is a dominant vessel. It bifurcates into the PDA and PLV branches. There is 50% stenosis in the proximal portion of the vessel. There is 80% stenosis in the proximal portion of the PDA, which is a large vessel. Additionally, there is 80% stenosis in the proximal portion of the PLV. INDICATIONS: Abnormal stress test. Electronically Signed by: Alissa Sexton MD 12/21/2021 08:10 P Alissa Sexton MD Date Dict: 12/18/2021/02:51 P/Alissa Sexton MD Date Trans: 12/18/2021 11:28 P/laurieo [id number] Normal [facility] Vital Signs Date Time Vital Sign Value Performing Clinician Facility 04-16-2024 10:19-0400 Blood Pressure Location Alissa Mooney [facility] 04-16-2024 10:19-0400 Diastolic blood pressure 89 mm[Hg] Alissa Mooney [facility] 04-16-2024 10:19-0400 Heart rate 51 /min Alissa Mooney [facility] 04-16-2024 10:19-0400 Systolic blood pressure 162 mm[Hg] Alissa Mooney [facility] 03-24-2024 11:05-0400 Body height 172.72 cm [facility] 03-24-2024 11:05-0400 Body mass index (BMI) [Ratio] 37.2 kg/m2 [facility] 03-24-2024 11:05-0400 Body weight 111.13 kg [facility] 03-24-2024 11:05-0400 Diastolic blood pressure 83 mm[Hg] [facility] 03-24-2024 11:05-0400 Heart rate 54 /min [facility] 03-24-2024 11:05-0400 Systolic blood pressure 154 mm[Hg] [facility] 08-09-2022 10:45-0500 Body height 173.99 cm Jacob Mckeon Other [employer] [facility] [employer] Other 08-09-2022 10:45-0500 Body mass index (BMI) [Ratio] 35.81 kg/m2 Jacob Mckeon Other [employer] [facility] [employer] Other 08-09-2022 10:45-0500 Body weight 108.41 kg Jacob Mckeon Other [employer] Other 08-09-2022 10:45-0500 Diastolic blood pressure 72 mm[Hg] Jacob Mckeon Other [employer] Other 08-09-2022 10:45-0500 SaO2% (BldA) [Mass fraction] 97 % Jacob Mckeon Other [employer] Other 08-09-2022 10:45-0500 Systolic blood pressure 132 mm[Hg] Jacob Mckeon Other [employer] Other 07-25-2022 13:00-0500 Body height 175.26 cm Mary Weston Other [employer] Other 07-25-2022 13:00-0500 Body mass index (BMI) [Ratio] 35.73 kg/m2 Mary Ontiveros Other [employer] Other 07-25-2022 13:00-0500 Body temperature 97.8 [degF] Mary Ontiveros Other [employer] Other 07-25-2022 13:00-0500 Body weight 109.77 kg Mary Ontiveros Other [employer] Other 07-25-2022 13:00-0500 Respiratory rate 18 /min Mary Ontiveros Other [employer] Other 07-25-2022 13:00-0500 SaO2% (BldA) [Mass fraction] 96 % Mary Ontiveros Other [employer] Other 02-28-2022 12:30-0400 Body height 175.26 cm Cass Marquita Other [employer] Other 02-28-2022 12:30-0400 Body mass index (BMI) [Ratio] 34.26 kg/m2 Cass Marquita Other [employer] Other 02-28-2022 12:30-0400 Body temperature 100.6 [degF] Cass Marquita Other [employer] Other 02-28-2022 12:30-0400 Body weight 105.24 kg Cass Marquita Other [employer] Other 02-28-2022 12:30-0400 Respiratory rate 18 /min Cass Juárez Other [employer] Other 02-28-2022 12:30-0400 SaO2% (BldA) [Mass fraction] 97 % Cass Juárez Other [employer] Other Encounters Encounter Date Encounter Type Care Provider Facility Start: [facility]-16[facility]24 [facility] Start: 04-16-2024 End: 04-16-2024 Patient encounter procedure Alissa Mooney [facility] Start: 03-24-2024 End: 03-24-2024 ambulatory [facility] Work Phone: Start: 03-24-2024 End: 03-24-2024 Patient encounter procedure [facility] Physician [facility] Work Phone: Start: 11-05-2023 End: 11-05-2023 [facility] Start: 08-19-2023 End: 08-19-2023 ambulatory Jacob Mckeon Other [employer] Other Start: 08-19-2023 Telephone encounter Jacob Mckeon [facility] Start: 07-11-2023 End: 07-11-2023 ambulatory TESFAYE BRHONG Not Available Start: 07-09-2023 End: 07-09-2023 ambulatory LEO DELRAOSA Not Available Start: 07-04-2023 End: 07-04-2023 ambulatory TESFAYE BRINK Not Available Start: 07-02-2023 End: 07-02-2023 ambulatory LEO DELAROSA Not Available Start: 06-27-2023 End: 06-27-2023 ambulatory ERICA SAUCEDA Not Available Start: 06-26-2023 End: 06-26-2023 ambulatory ALYSA B APLING Not Available Start: 06-12-2023 End: 06-13-2023 ambulatory ALYSA B APLING Not Available Start: 05-08-2023 End: 05-08-2023 ambulatory CINDY PIZARRO [facility] Start: 02-01-2023 End: 02-01-2023 [facility] Start: 12-25-2022 End: 12-26-2022 ambulatory MARCELINO STERN Facility:[facility] Start: 11-22-2022 End: 11-23-[address] JACOB MCKEON Facility:[facility] Start: 11-20-2022 End: 11-21-2022 ambulatory MARCELINO STERN Facility:[facility] Start: 11-12-2022 End: 11-13-2022 ambulatory MARCELINO STERN Facility:[facility] Start: 10-09-2022 End: 10-10-2022 ambulatory CINDY PIZARRO Facility:[facility] Start: 08-24-2022 End: 08-25-[address] CHALO CHEEMA Facility:[facility] Start: 08-09-2022 End: 08-09-2022 ambulatory Jacob Mckeon Other [employer] Other Start: 08-09-2022 Office outpatient vi sit 15 minutes Jacob Mckeon [facility] Start: 07-31-2022 End: 08-15-2022 ambulatory ALISSA BELLSHAHBAZALONSO Facility:[facility] Start: 07-27-2022 End: 07-27-2022 ambulatory Jacob Mckeon Other [employer] Other Start: 07-27-2022 Telephone encounter Jacob Mckeon [facility] Start: 07-25-2022 End: 07-25-2022 ambulatory Mary Ontiveros Other [employer] Other Start: 07-25-2022 Office outpatient vi sit 25 minutes Mary Ontiveros [facility] Start: 06-25-2022 End: 06-26-2022 ambulatory CINDY PIZARRO Facility:[facility] Start: 06-01-2022 End: 06-02-[address] TRINIDAD CHRISTINA Facility:[facility] Start: 05-02-2022 End: 05-03-2022 ambulatory CINDY PIZARRO Facility:[facility] Start: 03-06-2022 Adult health examination Jacob Mckeon Other [employer] Other Start: 02-28-2022 End: 02-28-2022 ambulatory Cass Juárez Other [employer] Other Start: 02-28-2022 Office outpatient ne w 20 minutes Cass Juárez [facility] Start: 02-26-2022 End: 07-31-2022 ambulatory ALISSA SEXTON Facility: Start: 01-01-2022 End: 01-07-2022 Evaluation and management of inpatient JACOB MCKEON Facility:[facility] Start: 01-01-2022 End: 01-02-2022 Evaluation and management of inpatient JACOB MCKEON Facility:[facility] Start: 12-30-2021 End: 01-16-2022 ambulatory JACOB MCKEON Facility:[facility] Start: 12-18-2021 End: 12-19-2021 ambulatory JACOB MCKEON Facility:[facility] Procedures Date Procedure Procedure Detail Performing Clinician Start: 11-05-2023 Follow-up visit Follow-up ALISSA SEXTON Start: 01-02-2022 Antibody screen JACOB MCKEON Comment on above: Performed By: #### [id number] Start: 05-29-2016 General examination of patient Jacob Mckeon Other Start: 06-08-2015 Screening for malign ant neoplasm of prostate Jacob Mckeon Other Colonoscopy Alissa Mooney Immunizations Immunization Date Immunization Notes Care Provider Carlos zhang 06-05-2022 influenza virus vaccine, split virus (incl. purified surface antigen) Jacob Mckeon Other [employer] Other 06-05-2022 influenza virus vaccine, unspecified formulation [facility] 06-05-2022 Prevnar 20 Jacob Mckeon Other [facility] 05-02-2018 influenza virus vaccine, split virus (incl. purified surface antigen) Jacob Mckeon Other [employer] Other 05-02-2018 influenza virus vaccine, unspecified formulation [facility] 05-15-2017 influenza virus vaccine, unspecified formulation Alissa Mooney [facility] 05-15-2017 tetanus and diphther ia toxoids, adsorbed, preservative free, for adult use (5 Lf of tetanus toxoid and 2 Lf of diphtheria toxoid) Jacob Mckeon Other [facility] 05-30-2016 zoster vaccine, live Jacob Mckeon Other [facility] 05-04-2016 influenza virus vaccine, unspecified formulation Alissa Mooney [facility] 05-04-2016 tetanus and diphther ia toxoids, adsorbed, preservative free, for adult use (5 Lf of tetanus toxoid and 2 Lf of diphtheria toxoid) Jacob Mckeon Other [facility] Payers Date Payer Category Payer Medicare [id number] 1959 Self-pay 1959 Unknown [id number] 1960 Unknown [id number] 1955 Unknown [id number] 2.16.8 40.1.045220.3.579.2.647 1954 Unknown [id number] 2.16.8 40.1.632134.3.579.2.647 1954 Unknown [id number] 2.16.8 40.1.504111.3.579.2.647 1954 Unknown [id number] 2.16.8 40.1.186235.3.579.2.647 1954 Unknown [id number] 2.16.84 0.1.213831.3.579.2.593 1954 Unknown [id number] 2.16.84 0.1.706438.3.579.2.593 1954 Unknown [id number] 2.16.84 0.1.957496.3.579.2.593 1954 Unknown [id number] 2.16.84 0.1.825861.3.579.2.593 1954 Unknown [id number] 2.16.84 0.1.334111.3.579.2.593 1954 Unknown [id number] 2.16.84 0.1.799473.3.579.2.593 1954 Unknown [id number] 2.16.84 0.1.701504.3.579.2.593 1954 Unknown [id number] 2.16.84 0.1.028861.3.579.2.593 1954 Unknown [id number] 2.16.84 0.1.317836.3.579.2.593 1954 Unknown [id number] 2.16.84 0.1.594320.3.579.2.593 1954 Unknown [id number] 2.16.84 0.1.007648.3.579.2.593 1954 Unknown [id number] 2.16.840 .1.112389.3.579.2.1259 1954 Unknown [id number] 2.16.840 .1.259818.3.579.2.1259 1954 Unknown [id number] 2.16.840 .1.929433.3.579.2.1259 1954 Unknown [id number] 2.16.840 .1.280003.3.579.2.1259 1954 Unknown [id number] 2.16.840 .1.676220.3.579.2.1259 1954 Unknown [id number] 2.16.840 .1.149123.3.579.2.1259 1954 Unknown [id number] 2.16.840 .1.087108.3.579.2.1259 1954 Unknown [id number] 2.16.840. 1.332800.3.579.2.1259 1954 Unknown [id number] 2.16.8 40.1.664033.3.579.2.727 Medicare [id number] 2.1 6.840.1.338865.19 Unknown [id number] 2.16.84 0.1.704607.3.579.2.593 Social History Date Type Detail Facility Sex Assigned At [facility] Start: 1955 Sex Assigned At Male [facility] Start: 04-16-2024 Tobacco smoking status Never s moked tobacco (finding) [facility] Tobacco smoking status Never [facility] Medical Equipment Procedure Code Equipment Code Equipment Origin al Text Equipment Identifier Dates Lancets - Start: 08-19-2023 Functional Status Date Assessment Result Facility 04-16-2024 Functional Status N/A [facility] Clinical Notes 01-24-2022 to 11-05-2023 Note Date & Type Note Facility 11-05-2023 Note Cardiovascular Medic [facility] SUBJECTIVE Oswald Ochoa is a 68 y.o. male here for follow-up. He has know HTN, CAD s/p CABG 01/03/2022, DM type II, HLD, BPH, former smoker. HPI Patient presents for yearly follow up. He continues to do well. Patient adamantly denies chest pain or shortness of breath. Patient denies any lower extremity edema, orthopnea, or proximal nocturnal dyspnea. No near-syncope or syncope. No dizziness or lightheadedness. Patient Active Problem List Diagnosis Benign prostatic hyperplasia Coronary arteriosclerosis Dyspnea on exertion Erectile dysfunction Hyperlipidemia Hypertensive disorder Obesity Type 2 diabetes mellitus (CMS/HCC) H/O four vessel coronary artery bypass graft Diverticulitis of colon Pure hypercholesterolemia Past Medical History: Diagnosis Date Coronary artery disease Diabetes mellitus ([facility]/HCC) Hyperlipidemia Hypertension No family history on file. Social History Tobacco Use Smoking status: Former Types: Cigarettes Substance Use Topics Alcohol use: Yes Comment: occasional No Known Allergies ROS 10 point ROS is performed and is negative unless otherwise specified in HPI OBJECTIVE Visit Vitals BP 140/86 (BP Location: Left arm, Patient Position: Sitting, BP Cuff Size: Adult) Pulse 67 Resp 12 Ht 1.727 m (5' 8 ) Wt 111 kg (245 lb 12.8 oz) SpO2 97% BMI 37.37 kg/m??? Smoking Status Former BSA 2.31 m??? Medications: Current Outpatient Medications: aspirin 81 mg EC tablet, TAKE 1 TABLET BY MOUTH EVERY DAY, Disp: 90 tablet, Rfl: 3 atorvastatin (Lipitor) 80 mg tablet, Take 1 tablet by mouth at bedtime., Disp: , Rfl: clopidogrel (Plavix) 75 mg tablet, Take 1 tablet by mouth in the morning., Disp: , Rfl: ezetimibe (Zetia) 10 mg tablet, Take 1 tablet (10 mg) by mouth in the morning., Disp: 90 tablet, Rfl: 3 furosemide (Lasix) 20 mg tablet, Take 1 tablet (20 mg) by mouth in the morning., Disp: 90 tablet, Rfl: 3 glipiZIDE (Glucotrol) 5 mg tablet, Take 5 mg by mouth in the morning., Disp: , Rfl: lisinopril 40 mg tablet, TAKE 1 TABLET BY MOUTH EVERY DAY IN THE MORNING, Disp: 90 tablet, Rfl: 3 metoprolol succinate XL (Toprol-XL) 100 mg 24 hr tablet, TAKE 1 TABLET BY MOUTH IN THE MORNING *DO NOT CRUSH OR CHEW*, Disp: 90 tablet, Rfl: 3 qroknqszutba-flzk-tkerkssg-folic acid (Multivitamin 50 Plus) tablet, Take 1 tablet by mouth in the morning., Disp: , Rfl: omeprazole (PriLOSEC) [address] capsule, Take 1 tablet by mouth in the morning., Disp: , Rfl: tadalafil (Cialis) 5 mg tablet, Take 5 mg by mouth in the morning., Disp: , Rfl: furosemide (Lasix) 20 mg tablet, Take 1 tablet (20 mg) by mouth in the morning., Disp: 90 tablet, Rfl: 3 furosemide (Lasix) 40 mg tablet, Take 1 tablet (40 mg) by mouth in the morning. (Patient not taking: Reported on 11/05/2023), Disp: 90 tablet, Rfl: 3 Physical Exam Constitutional: Appearance: Normal appearance. HENT: Head: Normocephalic and atraumatic. Right Ear: External ear normal. Left Ear: External ear normal. Eyes: Extraocular Movements: Extraocular movements intact. Pupils: Pupils are equal, round, and reactive to light. Neck: Vascular: No carotid bruit. Cardiovascular: Rate and Rhythm: Normal rate and regular rhythm. Pulses: Normal pulses. Heart sounds: Normal heart sounds. Pulmonary: Effort: Pulmonary effort is normal. Breath sounds: Normal breath sounds. Abdominal: General: Bowel sounds are normal. Palpations: Abdomen is soft. Musculoskeletal: General: Normal range of motion. Cervical back: Neck supple. Right lower leg: No edema. Left lower leg: No edema. Skin: General: Skin is warm and dry. Neurological: General: No focal deficit present. Mental Status: He is alert and oriented to person, place, and time. Psychiatric: Mood and Affect: Mood normal. Behavior: Behavior normal. Thought Content: Thought content normal. Judgment: Judgment normal. Labs: [facility] Encounter on 01/07/2022 Component Date Value Ref Range Status Glucose POC 01/07/2022 143 (H) 70 - 100 mg/dL Final Lab Results Component Value Date BNP 19 01/01/2022 10/09/22: Cr. 1.53, BUN 11, K 4.2, eGFR 45 08/2022: Hgb A1c 7.2 (stated per pt) 06/25/22 BUN 10, CR 1.00 K+ 3.7 ASSESSMENT/PLAN: No diagnosis found. #Dyspnea on exertion Echo demonstrated normal LV function Right-sided pressures are mildly elevated Patient was started on Lasix. Symptoms have largely resolved He feels that his symptoms are likely due to, at least in part, to deconditioning. They have resolved since his resumption of physical activity #Coronary arteriosclerosis with hx CABG 12/2021 -Stress test was performed and normal demonstrates normal myocardial perfusion. -Patient adamantly denies any chest pain -Continue GDMT- ASA, plavix, lipitor, toprol and lisinopril #Hypertensive disorder -Patient states that his blood pressure is well controlled at home -He (more content not included)... [facility] 08-19-2023 Evaluation note Encounter Date Diagnosis Assessment Notes Jul, Type 2 diabetes mellitus with hyperglycemia, unspecified whether halfway insulin use (ICD-10 - E11.65) [employer] Other [id number] NoteStable without worsening WHITNEY.[facility]10[facility]11[facility]20[facility] NoteCoronary artery disease is stable Continue GDMT- ASA, plavix, lipitor, toprol and lisinopril continue risk factor modifications- heart healthy diet, regular exercise as tolerated and continue all medications.[facility] 05-08-2023 NoteHypertension is very stable at home and elevated in office Continue lisinopril, toprol and lasix Renal function has been stableUnMer[facility]10-11-2023 Note Continue lipitor, LDL 106 therefore will add zetia to regime and repeat Lipid level in 3 monthsUn[facility]-2023 NoteUTP CARDIOLOGY PROGRESS NOTE HPI: Oswald Ochoa is a 68 y.o. male here for routine F/U for HTN, CAD s/p CABG x4 Patient here for 3 mo follow up CAD, hypertension, and WHITNEY. Denies chest pain, and states WHITNEY remains unchanged. Had cataract surgery since last visit. Denies lightheadedness, palpitations, and LE edema. PMH: HTN, CAD s/p CABG 01/03/2022, DM type II, HLD, BPH, former smoker. Overall states he is doing well without any limiting symptoms States at home b/p is always < 130/80, I asked pt to bring b/p monitor with him to next visit to compare with ours. Review of Systems Cardiovascular: Positive for dyspnea on exertion. Musculoskeletal: Positive for arthritis, back pain and myalgias. All other systems reviewed and are negative. Visit Vitals BP 153/82 (BP Location: Left arm, Patient Position: Sitting) Pulse 58 Ht 1.727 m (5' 8 ) Wt 113 kg (250 lb) SpO2 95% BMI 38.01 kg/m??? Smoking Status Former BSA 2.33 m??? No Known Allergies Medications: Current Outpatient Medications on File Prior to Visit Medication Sig Dispense Refill aspirin 81 mg EC tablet Take 1 tablet by mouth in the morning. atorvastatin (Lipitor) 80 mg tablet Take 1 tablet by mouth at bedtime. clopidogrel (Plavix) 75 mg tablet Take 1 tablet by mouth in the morning. furosemide (Lasix) 40 mg tablet Take 1 tablet (40 mg) by mouth in the morning. (Patient taking differently: Take 20 mg by mouth in the morning.) 90 tablet 3 glipiZIDE (Glucotrol) 5 mg tablet Take 5 mg by mouth in the morning. lisinopril 40 mg tablet TAKE 1 TABLET BY MOUTH EVERY DAY IN THE MORNING 90 tablet 3 metoprolol succinate XL (Toprol-XL) 100 mg 24 hr tablet TAKE 1 TABLET BY MOUTH IN THE MORNING *DO NOT CRUSH OR CHEW* 90 tablet 3 tfwrqczcpxpo-ibqt-qkhhugsr-folic acid (Multivitamin 50 Plus) tablet Take 1 tablet by mouth in the morning. omeprazole (PriLOSEC) [address] capsule Take 1 tablet by mouth in the morning. tadalafil (Cialis) 5 mg tablet Take 5 mg by mouth in the morning. [DISCONTINUED] spironolactone (Aldactone) 25 mg tablet Take 2 tablets (50 mg) by mouth in the morning. (Patient taking differently: Take 25 mg by mouth in the morning.) 180 tablet 3 No current facility-administered medications on file prior to visit. Physical Exam: Constitutional: Appearance: Normal appearance. Without apparent distress, obese HENT: Head: Normocephalic and atraumatic. Nose: Nose normal. Mouth/Throat: Mouth: Mucous membranes are moist. Eyes: Extraocular Movements: Extraocular movements intact. Conjunctiva/sclera: Conjunctivae normal. Neck: Vascular: No JVD. Cardiovascular: Rate and Rhythm: Normal rate and regular rhythm. Pulses: Dorsalis pedis pulses are 3 on the right side and 3on the left side. Posterior tibial pulses are 3 on the right side and 3 on the left side. Heart sounds: Normal heart sounds, S1 normal and S2 normal. Pulmonary: Effort: Pulmonary effort is normal. Breath sounds: Normal breath sounds. Abdominal: General: Bowel sounds are normal. Palpations: Abdomen is soft. Musculoskeletal: General: Normal range of motion. Cervical back: Normal range of motion. Right lower leg: Non pitting edema. Left lower leg: Non pitting edema. Skin: General: Skin is warm and dry. Capillary Refill: Capillary refill takes less than 2 seconds. Neurological: General: No focal deficit present. Mental Status: he is alert and oriented to person, place, and time. Psychiatric: Mood and Affect: Mood normal. Behavior: Behavior normal. Thought Content: Thought content normal. Judgment: Judgment normal. Labs: 11/13/22- Renal function normal BUN 10 CR 1.17 K+ normal Liver function normal Chol 166, HDL 38, trig 109, LDL 106.2 10/09/22: Cr. 1.53, BUN 11, K 4.2, eGFR 45 08/2022: Hgb A1c 7.2 (stated per pt) 06/25/22 BUN 10, CR 1.00 K+ 3.7 Last lab values have been reviewed CV Testin11/20/22 TTE- Normal LVSF, no WMA, mild dilated RV, Mild to mod TV regurg Treadmill stress test- normal myocardial perfusion and no ischemia noted on EKG- Normal Assessment/Plan: Pure hypercholesterolemia Continue lipitor, LDL 106 therefore will add zetia to regime and repeat Lipid level in 3 months Hypertensive disorder Hypertension is very stable at home and elevated in office Continue lisinopril, toprol and lasix Renal function has been stable Coronary arteriosclerosis Coronary artery disease is stable Continue GDMT- ASA, plavix, lipitor, toprol and lisinopril continue risk factor modifications- heart healthy diet, regular exercise as tolerated and continue all medications. H/O four vessel coronary artery bypass graft stable Dyspnea on exertion Stable without worsening WHITNEY. RTC [facility]Un[facility]10-[facility]23 NotePatient here for 3 mo follow up CAD, hypertension, and WHITNEY. Denies chest pain, and states WHITNEY remains unchanged. Had cataract surgery since last visit. Denies lightheadedness, palpitations, and LE edema. Review of Systems Cardiovascular: Positive for dyspnea on exertion. Musculoskeletal: Positive for arthritis, back pain and myalgias. All other systems reviewed and are negative.[facility] 02-01-2023 NoteCardiovascular Medicine [facility] SUBJECTIVE Oswald Ochoa is a 67 y.o. male here for follow-up. He has know HTN, CAD s/p CABG 01/03/2022, DM type II, HLD, BPH, former smoker. HPI Patient continues to do well. Patient adamantly denies any cardiac complaints or concerns. Patient denies any chest pain or shortness of breath. Patient denies any lower extremity edema, orthopnea, or proximal nocturnal dyspnea. No near-syncope or syncope. No dizziness or lightheadedness. Feels much better since the spirinolactone was discontinued and lasix was decreased. Patient Active Problem List Diagnosis Benign prostatic hyperplasia Coronary arteriosclerosis Dyspnea on exertion Erectile dysfunction Hyperlipidemia Hypertensive disorder Obesity Type 2 diabetes mellitus (CMS/HCC) H/O four vessel coronary artery bypass graft Past Medical History: Diagnosis Date Coronary artery disease Diabetes mellitus (CMS/[facility]) Hyperlipidemia Hypertension No family history on file. Social History Tobacco Use Smoking status: Former Types: Cigarettes Substance Use Topics Alcohol use: Yes Comment: occasional No Known Allergies ROS 10 point ROS is performed and is negative unless otherwise specified in HPI OBJECTIVE Visit Vitals BP 136/77 (BP Location: Left arm, Patient Position: Sitting) Pulse 61 Ht 1.727 m (5' 8 ) Wt 114 kg (251 lb) SpO2 95% BMI 38.16 kg/m??? Smoking Status Former BSA 2.34 m??? Medications: Current Outpatient Medications: aspirin 81 mg EC tablet, Take 1 tablet by mouth in the morning., Disp: , Rfl: atorvastatin (Lipitor) 80 mg tablet, Take 1 tablet by mouth at bedtime., Disp: , Rfl: clopidogrel (Plavix) 75 mg tablet, Take 1 tablet by mouth in the morning., Disp: , Rfl: furosemide (Lasix) 40 mg tablet, Take 1 tablet (40 mg) by mouth in the morning. (Patient taking differently: Take 20 mg by mouth in the morning.), Disp: 90 tablet, Rfl: 3 glipiZIDE (Glucotrol) 5 mg tablet, Take 5 mg by mouth in the morning., Disp: , Rfl: lisinopril 40 mg tablet, TAKE 1 TABLET BY MOUTH EVERY DAY IN THE MORNING, Disp: 90 tablet, Rfl: 3 metoprolol succinate XL (Toprol-XL) 100 mg 24 hr tablet, Take 1 tablet (100 mg) by mouth in the morning. Do not crush or chew., Disp: 90 tablet, Rfl: 3 amagvojnbqvy-yqca-lickpgkr-folic acid (Multivitamin 50 Plus) tablet, Take 1 tablet by mouth in the morning., Disp: , Rfl: omeprazole (PriLOSEC) [address] capsule, Take 1 tablet by mouth in the morning., Disp: , Rfl: tadalafil (Cialis) 5 mg tablet, Take 5 mg by mouth in the morning., Disp: , Rfl: spironolactone (Aldactone) 25 mg tablet, Take 2 tablets (50 mg) by mouth in the morning. (Patient taking differently: Take 25 mg by mouth in the morning.), Disp: 180 tablet, Rfl: 3 Physical Exam Constitutional: Appearance: Normal appearance. HENT: Head: Normocephalic and atraumatic. Right Ear: External ear normal. Left Ear: External ear normal. Eyes: Extraocular Movements: Extraocular movements intact. Pupils: Pupils are equal, round, and reactive to light. Neck: Vascular: No carotid bruit. Cardiovascular: Rate and Rhythm: Normal rate and regular rhythm. Pulses: Normal pulses. Heart sounds: Normal heart sounds. Pulmonary: Effort: Pulmonary effort is normal. Breath sounds: Normal breath sounds. Abdominal: General: Bowel sounds are normal. Palpations: Abdomen is soft. Musculoskeletal: General: Normal range of motion. Cervical back: Neck supple. Right lower leg: No edema. Left lower leg: No edema. Skin: General: Skin is warm and dry. Neurological: General: No focal deficit present. Mental Status: He is alert and oriented to person, place, and time. Psychiatric: Mood and Affect: Mood normal. Behavior: Behavior normal. Thought Content: Thought content normal. Judgment: Judgment normal. Labs: Legacy Encounter on 01/07/2022 Component Date Value Ref Range Status Glucose POC 01/07/2022 143 (H) 70 - 100 mg/dL Final Lab Results Component Value Date BNP 19 01/01/2022 10/09/22: Cr. 1.53, BUN 11, K 4.2, eGFR 45 08/2022: Hgb A1c 7.2 (stated per pt) 06/25/22 BUN 10, CR 1.00 K+ 3.7 ASSESSMENT/PLAN: No diagnosis found. #Dyspnea on exertion Echo demonstrated normal LV function Right-sided pressures are mildly elevated Patient was started on Lasix. Symptoms have largely resolved He feels that his symptoms are likely due to, at least in part, to deconditioning. The started after he quit cardiac rehab due to diverticulosis flare. He wishes to resume cardiac rehab at this time and see how he does #Coronary arteriosclerosis with hx CABG 12/2021 -Stress test was performed and normal demonstrates normal myocardial perfusion. -Patient adamantly denies any chest pain -Continue GDMT- ASA, plavix, lipitor, toprol and lisinopril #Hypertensive disorder -Patient states that his blood pressure is well controlled at home -He has elected to stop (more content not included)...[facility]07-07-2023 NotePatient here for 6 week follow up. Lynn Stern cut his lasix in half (down to 20mg daily) on 12/26. Has not had repeat BMP yet. Feels much better without spironolactone. He would like to do Phase 3 cardiac rehab if possible. Denies chest pain and SOB. Review of Systems Musculoskeletal: Positive for arthritis, back pain and myalgias. 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 Jul, Type 2 diabetes mellitus with hyperglycemia, unspecified whether manager long term care insulin use (ICD-10 - E11.65) Consider medication change after he resolves from present symptoms. [employer] Other 12-28-2022 Evaluation note* Encounter Date Diagnosis Assessment Notes Treatment Notes Treatment Clinical Notes Jun, Cough (ICD-10 - R05.9) Jun, Viral URI with cough (ICD-10 - J06.9) Advised patient that COVID/Influenza A/B/RSV PCR test and rapid Strep test was negative today. Advised patient that will treat as viral URI. Will send in course of prednisone and albuterol inhaler to use as directed, reviewed side effects of steroid. Supportive care as directed, increase fluids and rest, Tylenol as directed, OTC cough/cold remedies as directed on packaging such as Cordicidin HBP, cool mist humidifier, throat lozenges. Discussed infection control practices such as good hand washing and mask wearing. Patient to follow up with PCP if symptoms persist or worsen despite treatment. Immediate eval for SOB, difficulty, chest pain, fevers that do not break with antipyretic or any other concerning symptoms as reviewed on patient education handout. Patient verbalizes understanding and is agreeable to treatment plan. Patient left in stable condition Jun, Sore throat (ICD-10 - J02.9) [employer] Other 08-03-2022 Evaluation note* Encounter Date Diagnosis Assessment Notes Treatment Notes Treatment Clinical Notes Feb, Cough, unspecified type (ICD-10 - R05.9) Feb, COVID-19 (ICD-10 - U07.1) Discharge Instructions for COVID-19 (Suspected or Confirmed ) material was printed Drink plenty fluids, get plenty of rest. Take Tylenol as needed for pain. Continue your home medications as prescribed. Follow-up with your family physician if no improvement in 2 to 3 days. , Discharge Instructions for COVID-19 (Suspected or Confirmed ) material was printed [employer] Other 06-29-2022 NoteMR#: [id number] I [facility] Pt. Name: Oswald Ochoa Admitted: 01/01/2022 Discharged: 01/07/2022 Date of : 1955 Physician: Jose R Guzman MD DISCHARGE SUMMARY ADMITTING PHYSICIAN/SURGEON: Jose R Guzman MD. PRIMARY DIAGNOSES: 1. NSTEMI. 2. Three-vessel coronary artery disease, severe. 3. Essential hypertension. SECONDARY DIAGNOSES: 1. Type 2 diabetes mellitus. 2. Hyperlipidemia. 3. Morbid obesity. 4. Bilateral pleural effusions. 5. Atelectasis. 6. Acute, blood-loss anemia. HOSPITAL COURSE: 66-year-old male who presented to an [facility] after having an episode of postprandial left-sided chest pain that lasted for about 2 hours. Chest pain was associated with shortness of breath and tingling of both upper extremities and generalized weakness. He was then admitted to [facility] for further evaluation and CT surgery consultation. He underwent cardiac catheterization, which revealed severe, 3-vessel coronary artery disease. He underwent the above-named procedure. Tolerated the procedure well. There were no complications. He was taken from the operating room to the ICU for recovery. Extubated per fast-track extubation protocol. On postoperative day #1, he was up to the chair and evaluated by Physical and Occupational Therapy. He followed the usual postoperative course for coronary artery bypass grafting surgery. He remained hemodynamically stable and was determined to be ready for discharge on postoperative day #4. His pain was well controlled. He had no difficulty with gait imbalance. He was tolerating a regular diet. Demonstrated bowel and bladder function. CONDITION AT DISCHARGE: Good. Stable. DISCHARGE DISPOSITION: Home with home health care. DISCHARGE MEDICATIONS: The following home medications were continued: 1. Atorvastatin 80 mg once daily. 2. Glipizide 5 mg once daily. 3. Aspirin 81 mg once daily. 4. Omeprazole 40 mg once daily. The following new medications were prescribed at discharge: 1. Clopidogrel 75 mg once daily. 2. Furosemide 40 mg once daily. 3. Metoprolol tartrate 50 mg twice daily. 4. Potassium chloride 20 mEq twice daily. 5. Acetaminophen 650 mg 3 times daily as needed for pain. 6. Oxycodone 5 mg every 6 hours as needed for pain. DISCHARGE INSTRUCTIONS: Written and verbal instructions were provided on care of surgical incision and wounds. Cautioned on need to monitor for signs and symptoms of infection. We will be following up with the patient in the [facility] in 2 weeks for postoperative evaluation. Followup appointments were also provided for him to see his PCP and associate director career services. Electronically Signed by: Jose R Guzman MD 01/24/2022 07:07 P Jose R Guzman MD I personally saw this patient on the day of the encounter, performed the south portion(s) of the service and participated in the management and confirm the resident's documentation. Please note there may be an additional personal documentation from me. Date Dict: 01/23/2022/12:20 P/Francisco Henley CNP Date Trans: 01/23/2022 10:56 P/mmo [id number] Future App[facility]ments Appointment Date:05/01/2024 09:15:00 AM Scheduled Provider: Location:[facility] Appointment Type:Surgery [facility] Evaluation noteNo InformationNort [employer] Other Evaluation noteNo assessment information available [facility] Work Phone: [employer] general Narrative - Reported* Type Description Date Medical History Hypertension Surgical History Open Heart 2021 Hospitalization History see above [employer] Other [facility] general Narrative - Reported* Type Description Date Medical History coronary artery disease Medical History diverticulitis Medical History hyperlipidemia Medical History type 2 diabetes Medical History Hypertension Surgical History Open Heart 2021 Surgical History kidney stone Surgical History hemicolectomy Surgical History open cholecystectomy Surgical History right inguinal hernia Surgical History left ventral hernia Hospitalization History see above [employer] Other Hospital course Narrative No data available for this section [facility] Hospital Discharge instructions No data available for this section [facility] Progress note No data available for this section [facility] Summary Purpose Family History Relationship Condition Age at Onset Recorded Date/T santino father Heart disease Unknown Unknown mother Unknown Diabetes mellitus Unknown Advance Directives Advance Directive Response Recorded Date/ Time Advance Directives No October 02 12:00pm Chief Complaint and Reason for Visit Chief Complaint stomach issues Additional Source Comments (unrecognized sect ion and content) No Status Records FoundNo Status Records FoundNo Status Records FoundNo Status Records FoundNo Status Records Found INFORMATION SOURCE (unrecogn ized section and content) DATE CREATED AUTHOR 01/25/2022 [facility] DATE CREATED AUTHOR AUTHOR'S ORGANIZ ATION 01/04/2023 [facility] DATE CREATED AUTHOR AUTHOR'S ORGANIZ ATION 07/13/2023 [facility] EPIC DATE CREATED AUTHOR AUTHOR'S ORGANIZ ATION 01/23/2024 [facility] DATE CREATED AUTHOR AUTHOR'S ORGANIZ ATION [facility]/2024 [facility] REASON FOR VISIT (unrecogniz ed section and content) 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, COUGH, SORE THROATCOUGH, CONGESTION, SORE THROATNo InformationRXStomach Issues/ Sweating/ SugarNo Information Care Teams (unrecognized sec tion and content) Personnel Name: JACOB MCKEON MD Address: Address: [address] [place] [address] Team Status: Active Member Role Status Dates Jacob Mckeon MD Primary Care Provider Active Team Status: Inactive Member Role Status Dates Jacob Mckeon MD Primary Care Provide r, Attending Provider Active Start: March 24, 2024 End: March 24, 2024 Goals (unrecognized section and content) Goals may be documented in a n alternate section FOR RECORDS PERTAINING TO PATIENTS WHO ARE OR HAVE BEEN ENROLLED IN A CHEMICAL DEPENDENCY/SUBSTANCEABUSE PROGRAM, SOME INFORMATION MAY BE OMITTED. This clinical summary was aggregated from multiple sources. Caution should be exercised in using it in the provision of clinical care. This summary normalizes information from multiple sources, and as a consequence, information in this document may materially change the coding, format and clinical context of patient data. In addition, data may be omitted in some cases. CLINICAL DECISIONS SHOULD BE BASED ON THE PRIMARY CLINICAL RECORDS. [facility] [employer] [facility]. provides no warranty or guarantee of the accuracy or completeness of information in this document.
--- NOTE | 2024-04-17 12:44 | CT_ITS ---
[address] [address] Patient Name: CORNEL GIL MRN: [id number] date: 1955 Sex: M Assigned Patient Location: CT Current Patient Location: Accession/Order Number: [id number] Exam Date: 04/17/2024 13:55 Report Date: 04/20/2024 15:56 At the request of: JACOB MCKEON Procedure: CT abdomen pelvis w con EXAMINATION: CT abdomen pelvis w con HISTORY: abdominal pain R10.84 COMPARISON: No relevant comparison available. TECHNIQUE: CT images were created with IV contrast. Axial, Coronal, and Sagittal images. Dose reduction techniques were achieved by using automated exposure control and/or adjustment of mA and/or kV according to patient size and/or use of iterative reconstruction technique. FINDINGS: LUNG BASES: No visible pulmonary or pleural disease. LIVER: Diffuse hypoattenuation of the liver, hepatic steatosis BILIARY: Surgical clips from cholecystectomy PANCREAS: No lesion, fluid collection, ductal dilatation, or atrophy. SPLEEN: No enlargement or focal lesion. ADRENALS: No mass or enlargement. KIDNEYS: Bilateral renal cortical hypodensities likely representing cysts. Nonobstructing left nephrolithiasis BOWEL/MESENTERY: Moderate hiatal hernia Suture line along the sigmoid colon. Colonic diverticulosis without evidence of acute diverticulitis. Normal appendix. Nonobstructive bowel gas pattern. AORTA/VASCULAR: No aortic aneurysm. Extensive calcific atherosclerosis RETROPERITONEUM: No mass or adenopathy. LYMPH NODES: No adenopathy. URINARY BLADDER: Contrast fluid level within the urinary bladder PELVIC ORGANS: Enlarged prostate gland measuring 4.1 cm in diameter ABDOMINAL WALL: Umbilical hernia containing fat and a loop of small bowel without evidence of strangulation BONES: No bony lesion or fracture. OTHER: Negative. CT/CT abdomen pelvis w con IMPRESSION: Moderate hiatal hernia Hepatic steatosis No acute intraperitoneal abnormality Electronically authenticated by: LENI YUN Date: 04/20/2024 15:56
[2024-04-17 12:51] LABS: Basophils Percent Auto 0.4 % (0.2-2.0); Eosinophils Absolute Auto 0.2 10^3/uL (0.0-0.7); Hematocrit 42.4 % (42.0-54.0); Hemoglobin 14.9 g/dL (14.0-18.0); Immature Granulocytes Abs Auto 0.01 10^3/uL (0.00-0.03); Immature Granulocytes Pct Auto 0.1 % (0.0-0.5); Lymphocytes Absolute Auto 1.8 10^3/uL (1.2-3.8); Lymphocytes Percent Auto 24.2 % (20.5-60.0); Mean Corpuscular HGB Conc 35.1 g/dL (29.9-35.2); Mean Corpuscular Hemoglobin 29.9 pg (25.9-34.0); Mean Corpuscular Volume 85.1 fL (80.0-94.0); Mean Platelet Volume 10.5 fL (9.5-13.5); Monocytes Absolute Auto 0.5 10^3/uL (0.3-0.8); Neutrophils Absolute Auto 4.9 10^3/uL (1.4-6.5); Neutrophils Percent Auto 65.3 % (43.0-75.0); Platelet Count 228 10^3/uL (150-450); Red Blood Count 4.98 10^6/uL (4.70-6.10); Red Cell Distribution Width 12.9 % (11.0-15.0); White Blood Count 7.5 10^3/uL (4.0-11.0)
[2024-04-17 13:08] LABS: Alanine Aminotransferase 28 U/L (16-63); Albumin Globulin Ratio 1.4; Albumin Level 4.3 g/dL (3.4-5.0); Alkaline Phosphatase 69 U/L (46-116); Anion Gap 9.7; Aspartate Amino Transferase 19 U/L (15-37); BUN Creatinine Ratio 8.5; Calcium 9.8 mg/dL (8.5-10.1); Carbon Dioxide 30.2 mmol/L (21.0-32.0); Chloride 102 mmol/L (98-107); Estimated GFR (African America >60 (>=60); Estimated GFR (Non-African Ame >60 (>=60); Glucose 144 mg/dL (74-106); Potassium 3.9 mmol/L (3.5-5.1); Sodium 138 mmol/L (136-145); Total Protein 7.3 g/dL (6.4-8.2)
[2024-04-17 13:26] LABS: Estimated Average Glucose 151 mg/dL; Glycohemoglobin A1C 6.9 % (4.5-6.2)
== END 2024-04-17 12:26 | disposition home or self-care (01) ==
LOC: CT 12:27
PROVIDERS: PCP Family Medicine; Visit Provider Family Medicine
DX: R10.84 Generalized abdominal pain (principal); E11.65 Type 2 diabetes mellitus with hyperglycemia; I10 Essential (primary) hypertension; K44.9 Diaphragmatic hernia without obstruction or gangrene; K76.0 Fatty (change of) liver, not elsewhere classified
CPT/HCPCS: 36415; 74177; 80053; 83036; 85025; Q9967

== ENCOUNTER 2024-10-01 09:32 | Outpatient (OUT) | payer MEDICARE, OTHER, SELFPAY ==
--- NOTE | 2024-10-01 09:44 | US_ITS ---
The [address] [address] Patient Name: CORNEL GIL MRN: [id number] date: 1955 Sex: M Assigned Patient Location: LAB Current Patient Location: LAB Accession/Order Number: [id number] Exam Date: 10/01/2024 16:57 Report Date: 10/01/2024 16:58 At the request of: BEN WOOD MD Procedure: US renal BI BILATERAL RENAL AND BLADDER ULTRASOUND CLINICAL HISTORY: Renal stones COMPARISON: None FINDINGS: Estimation of renal size is approximately 9.9 cm on the right and 11 cm on the left. No solid mass. Cystic changes right kidney. 8 mm stone right kidney. No hydronephrosis. The urinary bladder is partially distended with a volume of ml. No shadowing stone or focal lesion. US/US renal BI IMPRESSION: 8 MM STONE RIGHT KIDNEY. NO HYDRONEPHROSIS. Impression dictated by: Conor Bell Jr., D.O.10/01/2024 4:58 PM Dictation Location: [place] [address] Electronically authenticated by: [id number] Y Date: 10/01/2024 16:58
--- OUTSIDE RECORDS SUMMARY | 2024-10-01 09:48 | XMS_ITS | CCD ---
Author Organization [facility] Care Team Providers Care Collar Folder Operator Name Role Phone JACOB MCKEON Primary Care Unavailable JACOB MCKEON Referring Unavailable ALGHOTHANI, MOHAMAD Admitting Unavailable ALGHOTHFLO, MOHAMAD Attending Unavailable JACOB MCKEON Primary Care [...] Ontiveros Unavailable Jacob Mckeon Unavailable DR CHRIS VITAL Consulting Unavailable LINDA, DR JACOB Jimenez Primary Care Unavailable LINDA, DR JACOB Jimenez Attending Unavailable LINDA, DR JACOB Jimenez Admitting Unavailable MCKEON, DR JACOB Jimenez Consulting Unavailable JUAREZ, CINDY Admitting Unavailable JUAREZ, CINDY Consulting Unavailable JUAREZ, CINDY Attending Unavailable LINDA, DR JACOB Jimenez Primary Care Unavailable CARRI, DR ABDI Attending Unavailable JUAREZ, CINDY Consulting Unavailable LINDA, DR JACOB Jimenez Primary Care Unavailable DR TRINIDAD CHRISTINA Admitting Unavailable JUAREZ, CINDY Attending Unavailable JUAREZ, CINDY Admitting Unavailable JUAREZ, CINDY Consulting Unavailable LINDA, DR JACOB Jimenez Primary Care Unavailable EDILBERTO, MARCELINO Admitting Unavailable EDILBERTO, MARCELINO Consulting Unavailable EDILBERTO, MARCELINO Attending Unavailable LINDA, DR JACOB Jimenez Primary Care Unavailable MCKEON, DR JACOB Jimenez Primary Care Unavailable EDILBERTO, MARCELINO Admitting Unavailable EDILBERTO, MARCELINO Attending Unavailable EDILBERTO, MARCELINO Admitting Unavailable EDILBERTO, MARCELINO Attending Unavailable ZAHRAA, DR CHRIS Robison Consulting Unavailable MCKEON, DR JACOB Jimenez Primary Care Unavailable EDILBERTO, MARCELINO Consulting Unavailable ALGHOTHANI, MOHAMAD Consulting Unavailable ALGHOTHANI, MOHAMAD Attending Unavailable ALGHOTHANI, MOHAMAD Admitting Unavailable MCKEON, DR JACOB Jimenez Primary Care Unavailable ALGHOTHANI, MOHAMAD Consulting Unavailable ALGHOTHANI, MOHAMAD Attending Unavailable ALGHOTHANI, MOHAMAD Admitting Unavailable MCKEON, DR JACOB Jimenez Primary Care Unavailable REQUEST, NONE LISTED Consulting Unavaila ble REQUEST, NONE LISTED Attending Unavaila ble MCKEON, DR JACOB Jimenez Primary Care Unavailable REQUEST, NONE LISTED Admitting Unavaila ble EDILBERTO, MARCELINO Admitting Unavailable EDILBERTO, MARCELINO Consulting Unavailable MCKEON, DR JACOB Jimenez Primary Care Unavailable EDILBERTO, MARCELINO Attending Unavailable JUAREZ, CINDY Admitting Unavailable JUAREZ, CINDY Consulting Unavailable JUAREZ, CINDY Attending Unavailable LINDA, DR JACOB Jimenez Primary Care Unavailable APLING, ALYSA Small Attending Unavailable APLING, ALYSA B Referring Unavailable APLING, ALYSA Small Attending Unavailable ERICA SAUCEDA Attending Unavailable APLING, ALYSA B Referring Unavailable LEO DELAROSA Attending Unavailable APLING, ALYSA B Referring Unavailable BRTESFAYE PITTS Attending Unavailable APLING, ALYSA B Referring Unavailable LEO DELAROSA Attending Unavailable APLING, ALYSA B Referring Unavailable TESFAYE REED Attending Unavailable APLING, ALYSA B Referring Unavailable JACOB MCKEON Primary Care Physician Morachelli, Jewellamad A. Referring Unavailable Mouchli, Mohamad A. Attending Unavailable Mouchli, Mohamad A. Admitting Unavailable Mouchli, Mohamad A. Attending Unavailable Jacob Mckeon MD Primary Care Provider [phone] Shade WOOD Attending Unavailable Mouchli, Mohamad A. Referring Unavailable Mouchli, Mohamad A. Attending Unavailable Mouchli, Mohamad A. Admitting Unavailable ALGHOTHANI, MOHAMAD Attending Unavailable ALGHOTHANI, MOHAMAD Attending Unavailable JACOB MCKEON Primary Care Unavailable Justus Braxton Attending Unavailable Olivia Woodard Attending Unavailable JACOB MCKEON Referring Unavailable Alissa Mooney Referring Unavailable Alissa Mooney Admitting Unavailable Alissa Mooney Attending Unavailable Allergies Allergy Classification Reported Allergen(s) Allergy Type Date of Onset Reaction(s) Facility (1 source) patient allergy list reviewed by nurse or physicia Propensity to adverse reactions 4 Comment:Done [facility] [employer] Other (1 source) Allergies Reconciled Propensity to adverse reactions Unknown [facility] [employer] Other (3 sources) No Known Medication Allergies; Translations: [No Known Medication Allergies] Propensity to adverse reactions (disorder) [facility] Repository Medications Current Medications Medication Drug Class(es) Dates Sig (Normalized) Sig (Original) Accu-Chek Guide - (1 source) Accu-Chek Guide - USE TO TEST ONCE A DAY *DX E11.65* for 90 Active [id number] 200 actuat albuterol 0.09 mg/actuat metered dose [...] aspirin 81 mg delayed release oral tablet (12 sources) Platelet Aggregation Inhibitor, Nonsteroidal Anti-inflammatory Drug Start: 04-16-2024 take 1 mg by mouth once daily aspirin 81 mg Oral EC Tab mg tab(s), Oral, Daily, Refills(s) 0, Blood Thinner Start Date: 04/16/24 Status: Ordered Start: 10-02-2023 take 1 tablet by nahum th once daily Aspirin Active 81 MG PO Daily October 02, 2023 1:00am FreeTextSig: TAKE 1 TABLET BY MOUTH EVERY DAY Oral; Note: Source Status: Taking; Refills: 0; Qty: 90 Each; Provider: EDILBERTO BENSON atorvastatin 80 mg oral tablet (2 sources) HMG-CoA Reductase Inhibitor Start: 04-22-2024 End: 04-22-2025 atorvastatin (LIPITOR) 80 mg tablet Take 80 mg by mouth. 04/22/2024 04/22/2025 Active take 1 tablet by mouth once yuli y Atorvastatin Calcium 80 MG TAKE 1 TABLET BY MOUTH EVERY DAY Oral for 90 Days Active ciprofloxacin 500 mg oral tablet (5 sources) Quinolone Antimicrobial Start: 08-09-2022 take 1 tablet by mouth every twelve hours Ciprofloxacin HCl 500 MG 1 tablet Orally every 12 hrs for 10 day(s) Jul, Active clopidogrel 75 mg oral tablet (16 sources) P2Y12 Platelet Inhibitor Start: 04-16-2024 End: 04-22-2025 clopidogrel (PLAVIX) 75 mg tablet Take 75 mg by mouth. 04/16/2024 04/22/2025 Active Start: 10-02-2023 take 1 tablet by nahum [...] Not-Takin g furosemide 20 mg oral tablet (6 sources) Loop Diuretic Start: 04-16-2024 take 1 mg by mouth once daily Lasix 20 mg Tab mg tab(s), Oral, Daily, Refills(s) 0, diuretic/water pill Start Date: 04/16/24 Status: Ordered Start: 10-03-2023 take 20 mg by mouth once daily Furosemide Active 20 MG PO Daily October 03, 2023 1:00am glipiZIDE 10 mg oral tablet (15 sources) Sulfonylurea Start: 06-17-2024 take 1 tablet by mouth once glipiZIDE (GLUCOTROL) 10 mg tablet Take 1 tablet by mouth every afternoon. 06/17/2024 Active Start: 04-16-2024 take 1 mg by mouth once daily glipiZIDE 10 mg ER Tab mg tab(s), Oral, Daily, Refills(s) 0, Blood glucose Start Date: 04/16/24 Status: Ordered Start: 12-31-2023 [...] glipiZIDE Active Inulin / Lactobacillus rhamnosus GG (3 sources) Start: 09-16-2018 [facility] Oral, Daily, Refill(s) 0, Prophylaxis Start Date: 09/16/18 Status: Ordered latanoprost 0.05 mg/ml ophthalmic solution (5 sources) Prostaglandin Analog Start: 09-16-[address] 0.005% preservative-free ophthalmic solution Eye-Right, Daily, Refill(s) 0, Ocular congestion Start Date: 09/16/18 Status: Ordered take 1 drop(s) into the eye(s) once daily at bedtime latanoprost (XALATAN) 0.005 % ophthalmic solution Use 1 Drop in both eyes daily at bedtime. Active lisinopril 40 mg oral tablet (11 sources) Angiotensin Converting Enzyme Inhibitor Start: 08-02-2022 take 1 tablet by mouth once daily [...] blood pressure Start Date: 09/16/18 Status: Ordered 24 hr metoprolol succinate 100 mg extended release oral tablet (12 sources) beta-Adrenergic Taylor Start: 04-16-2024 take 1 mg by mouth once daily metoprolol succinate 100 mg ER Tab mg tab(s), Oral, Daily, Refills(s) 0, High blood pressure Start Date: 04/16/24 Status: Ordered Start: 10-02-2023 Metoprolol Tar trate Active MG PO October 02, 2023 1:00am FreeTextSig: Oral; Note: Source Status: Taking; Qty: 180 Tablet; Provider: Linda Flanagan ( ) Metoprolol Tartr ate 50 MG Oral for 90 Days Active Mkvemwtyhphui-Zeypggrp-Epvpc n (MULTIVITAMIN 50 PLUS) tab (1 source) Multivitamins-Mi nerals-Lutein (MULTIVITAMIN 50 PLUS) tab Take 1 tablet by mouth every morning. Active omeprazole 40 mg delayed rel ease oral capsule (13 sources) Proton Pump Inhibitor St ar t: take 1 capsule by mouth once daily Omeprazole Active 0 .ROUTE .COMPLEX 90 March 23, 2024 3:40pm TAKE 1 CAPSULE [...] stomach acid Start Date: 09/16/18 Status: Ordered polyethylene glycol 3350 10053 mg powder for oral solution (1 source) Osmotic Laxative polyethylene gl ycol 3350 17 gram packet as needed. Active spironolactone 25 mg oral tablet (6 sources) Aldosterone Antagonist Start: 10-02-19 take 25 mg by mouth twice daily Spironolactone Active 25 MG PO Twice daily October 02, 2023 1:00am FreeTextSig: twice a day; Note: Source Status: Taking; Provider: Linda Flanagan ( ) Spironolactone 2 5 MG twice a day Active tadalafil (12 sources) Phosphodiesterase 5 Inhibitor Start: 03-23-2024 take 1 tablet by mouth once daily Tadalafil Active 0 .ROUTE .COMPLEX 90 March 23, 2024 3:40pm TAKE 1 TABLET [...] Problem Date Documented Date Episodic/Chronic Abdominal hernia (10 sources) Umbilical hernia without obstruction or gangrene; Translations: [Ventral hernia without obstruction or gangrene] Onset: 08-28-2022 Episodic Abdominal pain (20 sources) Abdominal pain; Translations: [Unspecified abdominal pain] Onset: 06-09-2013 Episodic Bacterial infection; unspecified site (5 sources) Bacterial infectious disease; Translations: [Other specified bacterial agents as the cause of diseases classified elsewhere] Episodic Calculus of urinary tract (3 sources) Kidney stone; Translations: [Calculus of kidney] Onset: 05-28-2024 Episodic Chronic obstructive pulmonary disease and bronchiectasis (6 sources) Bronchitis; Translations: [Bronchitis, not specified as acute or chronic] Episodic Coronary atherosclerosis and other heart disease (13 sources) Coronary arteriosclerosis; Translations: [Atherosclerotic heart disease of [place] coronary artery without angina pectoris] Onset: 06-07-2022 Chronic Diabetes mellitus with complications (9 sources) Hyperglycemia due to type 2 diabetes mellitus; Translations: [Type 2 diabetes mellitus with hyperglycemia] Chronic Disorders of lipid metabolism (9 sources) Hyperlipidemia; Translations: [Hyperlipidemia, unspecified] Onset: 11-15-2022 07-06-2024 Chronic Diverticulosis and diverticulitis (11 sources) Diverticulitis; Translations: [Diverticulitis of intestine, part unspecified, without perforation or abscess without bleeding] Onset: 06-26-2018 07-06-2024 Chronic Esophageal disorders (8 sources) Gastroesophageal reflux disease without esophagitis; Translations: [Gastro-esophageal reflux disease without esophagitis] Onset: 04-16-2024 Chronic Esophageal disorders (1 source) Lesion of esophagus; Translations: [Disease of esophagus, unspecified] 07-06-2024 Episodic Essential hypertension (16 sources) Essential hypertension; Translations: [Essential (primary) hypertension] Onset: 11-06-2013 Chronic Genitourinary congenital anomalies (1 source) Multiple congenital cysts of kidney; Translations: [Congenital multiple renal cysts] Onset: 05-28-2024 Chronic Hyperplasia of prostate (4 sources) Benign prostatic hypertrophy without outflow obstruction; Translations: [...] reading, without diagnosis of hypertension] Episodic Other diseases of kidney and ureters (1 source) Cyst of kidney, acquired; Translations: [Renal cyst] Onset: 07-06-2024 Episodic Other diseases of kidney and ureters (1 source) Cyst of kidney; Translations: [Cyst of kidney, acquired] 07-06-2024 Episodic Other lower respiratory disease (5 sources) Dyspnea on exertion; Translations: [Other forms of dyspnea] Episodic Other lower respiratory disease (1 source) Other forms of dyspnea; Translations: [OTHER FORMS OF DYSPNEA] Onset: 11-26-2022 Episodic Other lower respiratory disease (1 source) [...] Chronic Other nutritional; endocrine; and metabolic disorders (4 sources) Obesity caused by energy imbalance 04-16-2024 Chronic Other screening for suspected conditions (not mental disorders or infectious disease) (7 sources) Echocardiogram abnormal; Translations: [Abnormal result of other cardiovascular function study] Onset: 05-28-2024 Episodic Other skin disorders (1 source) Generalized hyperhidrosis; Translations: [GENERALIZED HYPERHIDROSIS] Onset: 11-26-2022 Episodic Other skin disorders (1 source) Disorder of sweat gland; Translations: [Eccrine sweat disorder, unspecified] Episodic Other upper respiratory infections (6 sources) Bacterial sinusitis; Translations: [Chronic sinusitis, unspecified] Onset: 08-02-2016 Chronic Unclassified (1 source) Chronic coronary microvascular dysfunction; Translations: [Chronic coronary microvascular dysfunction] Onset: 07-06-2024 Past or Other Problems Problem Classification Problem Date Documented Da te Episodic/Chronic Acute bronchitis (2 sources) Acute bronchitis; Translations: [Acute bronchitis] Onset: 06-28-2015 Episodic Administrative/social admission (1 source) Family problems; Translations: [Unspecified family circumstance] Onset: 01-16-2018 Episodic Coronary atherosclerosis and other heart disease (1 source) Presence of aortocoronary bypass graft; Translations: [PRESENCE AORTOCORONARY BYPASS GRAFT] Onset: 08-24-2022 Episodic Diabetes mellitus without complication (1 source) [...] male genital organs] Onset: 06-06-2017 Episodic Other non-traumatic joint disorders (1 source) [...] [Disease caused by 2019-nCoV] Onset: 02-28-2022 Resolved: 08-03-2022 Results Test Name Value Interpretation Reference Range Facility Reminderson 09-21-2024 Reminders Reminders From: Tiarra Philippe To: ALYSIA Wood; Sent: 05/28/2024 10:47:46 EDT Show up: 08/29/2024 10:47:00 EST Subject: renal US, KUB/PSA prior to October 2024 Due Date/Time: 09/21/2024 10:47:00 EST Reminder/Recall Patient needs sched for renal US, PSA/KUB prior to October 2024 appt. He would like [facility] Order faxed to [facility]. Will monitor Normal [facility] CNOVon 07-06-2024 CNOV Office Visit (GASTNO ) OSWALD OCHOA ([id number]) 1955 M Date Time Provider Department 07/06/24 3:30 PM JUSTUS BRAXTON During your visit today, we recorded the following information about you: Pulse Blood pressure Weight Height 56/minute 163/66 110.6 kg 1.727 m Justus Braxton MD 07/06/2024 10:31 PM Signed Patient presents with: Clinician To Clinician Consult HPI: Oswald Ochoa, 69 year old male with past medical history significant for obesity, hypertension, hyperlipidemia, coronary artery disease status post cardiac bypass x 5 vessel, cholecystectomy, diverticulitis status post hemicolectomy who presents in the office today for evaluation of subepithelial lesion. Patient recently underwent EGD for GERD on 05/01/2024 which showed evidence of subepithelial lesion in the mid esophagus. Biopsies were unremarkable. Colonoscopy at the time was unremarkable. Follow-up CT chest showing esophageal thickening at the GE junction but no evidence of esophageal mass. Patient denies any family history of gastrointestinal malignancies. Patient denies smoking. Denies alcohol use. He takes baby aspirin and Plavix daily. He has heartburn symptoms which he takes Prilosec once a night. Denies NSAIDs use. Denies melena or hematochezia. No unintentional weight loss. Past GI workup (On Plavix) 05/21/2024 CT chest w/IV contrast (imaging is in EPIC under get images) LARGE HIATAL HERNIA CONTAINING PROXIMAL STOMACH. CIRCUMFERENTIAL WALL THICKENING CAUDAL ESOPHAGUS JUST PROXIMAL TO GASTRIC HERNIATION.FINDING MOST LIKELY SECONDARY TO INFLAMMATORY ETIOLOGY/ESOPHAGITIS FROM HIATAL HERNIA. 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 05/01/24 EGD was performed per Dr. Mooney. Z-line irregular, 2 columns of salmon colored mucosa noted Hiatal hernia noted measuring 5 cm Subepithelial lesion appreicated in the mid esophagus Erythema in the antrum, moderate patchy, otherwise normal stomach, biopsies taken to rule out h-pylori Normal duodenum Path as follows: -esophagus, GE junction with moderate chronic inflammation in lamina propria. No intestinal metaplasia -stomach, gastric antral mucosa with mild chronic gastritis, compatible with reactive gastropathy No intestinal metaplasia No H-pylori No past medical history on file. No past surgical history on file. No current outpatient medications on file prior to visit. No current facility-administered medications on file prior to visit. Allergies: Not on File Review of Systems Constitutional: Negative for unexpected weight change. HENT: Negative for trouble swallowing. Gastrointestinal: Negative for abdominal pain, blood in stool, constipation, diarrhea, nausea and vomiting. All other systems reviewed and are negative. BP 163/66 (BP Site: Left Arm) Pulse (!) 56 Ht 172.7 cm (5' 8 ) Wt 110.6 kg (243 lb 13.3 oz) BMI 37.07 kg/m? Physical Exam Vitals reviewed. Constitutional: General: He is not in acute distress. Appearance: Normal appearance. HENT: Head: Normocephalic. Eyes: Conjunctiva/sclera: Conjunctivae normal. Cardiovascular: Rate and Rhythm: Normal rate and regular rhythm. Heart sounds: Normal heart sounds. Pulmonary: Effort: Pulmonary effort is normal. Breath sounds: Normal breath sounds. Abdominal: General: There is no distension. Palpations: Abdomen is soft. Tenderness: There is no abdominal tenderness. There is no guarding or rebound. Musculoskeletal: Cervical back: Neck supple. Skin: General: Skin is warm and dry. Neurological: Mental Status: He is oriented to person, place, and time. Psychiatric: Mood and Affect: Mood normal. Subepithelial lesion of esophagus - EGD - THERAPEUTIC, EUS, OR TUBE INTERVENTIONS; Future Hiatal hernia Gastroesophageal reflux disease, unspecified whether esophagitis present Diverticulosis Other orders - aspirin, enteric coated (ASPIRIN, ENTERIC COATED) 81 mg EC tablet; Take 81 mg by mouth once daily. - atorvastatin (LIPITOR) 80 mg tablet; Take 80 mg by mouth. - clopidogrel (PLAVIX) 75 mg tablet; Take 75 mg by mouth. - furosemide (LASIX) 20 mg tablet; Take 20 mg by mouth every morning. - glipiZIDE (GLUCOTROL) 10 mg tablet; Take 1 tablet by mouth every afternoon. - latanoprost (XALATAN) 0.005 % ophthalmic solution; Use 1 Drop in both eyes daily at bedtime. - lisinopril (ZESTRIL) 40 mg tablet; Take 1 tablet by mouth every morning. - metoprolol succinate ER (TOPROL XL) 100 mg; TAKE 1 TABLET BY MOUTH IN THE MORNING *DO NOT CRUSH OR CHEW* - Njjjzsmlxvcnp-Txpdaydo-Tvqzv n (MULTIVITAMIN 50 PLUS) tab; Take 1 tablet by mouth every morning. - omeprazole (PRILOSEC) 40 mg capsule; Take 40 mg by mouth once daily. - polyethylene glycol (more content not included)... Normal [facility] HISTORY PHYSICALon HISTORY PHYSICAL HNO ID: [id number] Author: JUSTUS BRAXTON MD Service: ? Author Type: Physician Type: H&P Filed: 07/06/2024 22:31 Note Text: Patient presents with: Clinician To Clinician Consult HPI: Oswald Ochoa, 69 year old male with past medical history significant for obesity, hypertension, hyperlipidemia, coronary artery disease status post cardiac bypass x 5 vessel, cholecystectomy, diverticulitis status post hemicolectomy who presents in the office today for evaluation of subepithelial lesion. Patient recently underwent EGD for GERD on 05/01/2024 which showed evidence of subepithelial lesion in the mid esophagus. Biopsies were unremarkable. Colonoscopy at the time was unremarkable. Follow-up CT chest showing esophageal thickening at the GE junction but no evidence of esophageal mass. Patient denies any family history of gastrointestinal malignancies. Patient denies smoking. Denies alcohol use. He takes baby aspirin and Plavix daily. He has heartburn symptoms which he takes Prilosec once a night. Denies NSAIDs use. Denies melena or hematochezia. No unintentional weight loss. Past GI workup (On Plavix) 05/21/2024 CT chest w/IV contrast (imaging is in EPIC under get images) LARGE HIATAL HERNIA CONTAINING PROXIMAL STOMACH. CIRCUMFERENTIAL WALL THICKENING CAUDAL ESOPHAGUS JUST PROXIMAL TO GASTRIC HERNIATION.FINDING MOST LIKELY SECONDARY TO INFLAMMATORY ETIOLOGY/ESOPHAGITIS FROM HIATAL HERNIA. 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 05/01/24 EGD was performed per Dr. Mooney. Z-line irregular, 2 columns of salmon colored mucosa noted Hiatal hernia noted measuring 5 cm Subepithelial lesion appreicated in the mid esophagus Erythema in the antrum, moderate patchy, otherwise normal stomach, biopsies taken to rule out h-pylori Normal duodenum Path as follows: -esophagus, GE junction with moderate chronic inflammation in lamina propria. No intestinal metaplasia -stomach, gastric antral mucosa with mild chronic gastritis, compatible with reactive gastropathy No intestinal metaplasia No H-pylori No past medical history on file. No past surgical history on file. No current outpatient medications on file prior to visit. No current facility-administered medications on file prior to visit. Allergies: Not on File Review of Systems Constitutional: Negative for unexpected weight change. HENT: Negative for trouble swallowing. Gastrointestinal: Negative for abdominal pain, blood in stool, constipation, diarrhea, nausea and vomiting. All other systems reviewed and are negative. BP 163/66 (BP Site: Left Arm) Pulse (!) 56 Ht 172.7 cm (5' 8 ) Wt 110.6 kg (243 lb 13.3 oz) BMI 37.07 kg/m? Physical Exam Vitals reviewed. Constitutional: General: He is not in acute distress. Appearance: Normal appearance. HENT: Head: Normocephalic. Eyes: Conjunctiva/sclera: Conjunctivae normal. Cardiovascular: Rate and Rhythm: Normal rate and regular rhythm. Heart sounds: Normal heart sounds. Pulmonary: Effort: Pulmonary effort is normal. Breath sounds: Normal breath sounds. Abdominal: General: There is no distension. Palpations: Abdomen is soft. Tenderness: There is no abdominal tenderness. There is no guarding or rebound. Musculoskeletal: Cervical back: Neck supple. Skin: General: Skin is warm and dry. Neurological: Mental Status: He is oriented to person, place, and time. Psychiatric: Mood and Affect: Mood normal. Subepithelial lesion of esophagus - EGD - THERAPEUTIC, EUS, OR TUBE INTERVENTIONS; Future Hiatal hernia Gastroesophageal reflux disease, unspecified whether esophagitis present Diverticulosis Other orders - aspirin, enteric coated (ASPIRIN, ENTERIC COATED) 81 mg EC tablet; Take 81 mg by mouth once daily. - atorvastatin (LIPITOR) 80 mg tablet; Take 80 mg by mouth. - clopidogrel (PLAVIX) 75 mg tablet; Take 75 mg by mouth. - furosemide (LASIX) 20 mg tablet; Take 20 mg by mouth every morning. - glipiZIDE (GLUCOTROL) 10 mg tablet; Take 1 tablet by mouth every afternoon. - latanoprost (XALATAN) 0.005 % ophthalmic solution; Use 1 Drop in both eyes daily at bedtime. - lisinopril (ZESTRIL) 40 mg tablet; Take 1 tablet by mouth every morning. - metoprolol succinate ER (TOPROL XL) 100 mg; TAKE 1 TABLET BY MOUTH IN THE MORNING *DO NOT CRUSH OR CHEW* - Rtmxgtagfrnki-Dksaawaz-Vjpzd n (MULTIVITAMIN 50 PLUS) tab; Take 1 tablet by mouth every morning. - omeprazole (PRILOSEC) 40 mg capsule; Take 40 mg by mouth once daily. - polyethylene glycol 3350 17 gram packet; as needed. - Tadalafil (CIALIS) 5 mg tablet; Take 5 mg by mouth. Assessment Assessment and plan: Oswald Ochoa, 69 year old male with past medical history significant for obesity, hypertension, hyperlipidemia, coronary artery disease status pos (more content not included)... Normal [facility] Ambulatory Visit Summaryon 1 Ambulatory Visit Summary Ambulatory Visit Summary OSWALD OCHOA :1955 Visit Date:05/28/2024 Ambulatory Visit Instructions Your Diagnosis BPH without urinary obstruction Kidney stone, Kidney stone Multiple renal cysts Screening PSA (prostate specific antigen) Tests Performed US Renal -- Results Pending -- XR Abdomen 1 View -- Results Pending -- Please visit your patient portal for your results or contact your primary care physician. Your Care Team Attending Physician - Olivia Dumont Primary Care Physician - JACOB MCKEON MD Referring Physician - JACOB MCKEON MD This Is Your Medications List Contact prescribing physician if questions or concerns aspirin (aspirin 81 mg Oral EC Tab) clopidogrel (Plavix 75 mg Tab) furosemide (Lasix 20 mg Tab) glipiZIDE (glipiZIDE 10 mg ER Tab) latanoprost ophthalmic (latanoprost 0.005% preservative-free ophthalmic solution) lisinopril metoprolol (metoprolol succinate 100 mg ER Tab) omeprazole tadalafil (Cialis) Procedures Performed Colonoscopy (05/01/2024), EGD - esophagogastroduodenoscopy (05/01/2024), Colonoscopy, Open heart surgery. Discharge Vitals Heart Rate (Peripheral) 70 Blood Pressure 160/80 Height 176 cm Height 69 in Weight 110 kg Weight 242 lb BMI 35.51 What to do next Scheduled Follow-Up Appointments Saturday 9:45 AM EDT With: ISRAEL RUFFIN, Shade Robison Where: [facility] [place] [address]- Medications What How Much When Instructions Unchanged aspirin (aspirin 81 mg Oral EC Tab) By Mouth Every day Contact prescribing physician if questions or concerns Unchanged clopidogrel (Plavix 75 mg Tab) By Mouth Every day Contact prescribing physician if questions or concerns Unchanged furosemide (Lasix 20 mg Tab) By Mouth Every day Contact prescribing physician if questions or concerns Unchanged glipiZIDE (glipiZIDE 10 mg ER Tab) By Mouth Every day Contact prescribing physician if questions or concerns Unchanged latanoprost ophthalmic (latanoprost 0.005% preservative-free ophthalmic solution) Right eye Every day Contact prescribing physician if questions or concerns Unchanged lisinopril 20 Milligram By Mouth Every day Contact prescribing physician if questions or concerns Unchanged metoprolol (metoprolol succinate 100 mg ER Tab) By Mouth Every day Contact prescribing physician if questions or concerns Unchanged omeprazole 40 Milligram By Mouth Every day Contact prescribing physician if questions or concerns Unchanged tadalafil (Cialis) 5 Milligram By Mouth Every 72 hours Contact prescribing physician if questions or concerns Allergies No Known Medication Allergies Problems Ongoing - Any problem that you are currently receiving treatment for. Chronic GERD Hiatal hernia Obesity due to excess calories Patient Survey You may receive a survey via text or e-mail asking about your office visit. Please share your experience with us by completing your survey. We appreciate your feedback and thank you for choosing us for your care. Normal [facility] Ambulatory Visit Summary Ambulatory Visit Summary OSWALD OCHOA :1955 Visit Date:05/28/2024 Ambulatory Visit Instructions Your Diagnosis BPH (benign prostatic hyperplasia) Your Care Team Attending Physician - Yamilet BARTHOLOMEW, Olivia Cormier Primary Care Physician - JACOB MCKEON MD Referring Physician - JACOB MCKEON MD This Is Your Medications List aspirin (aspirin 81 mg Oral EC Tab) clopidogrel (Plavix 75 mg Tab) furosemide (Lasix 20 mg Tab) glipiZIDE (glipiZIDE 10 mg ER Tab) latanoprost ophthalmic (latanoprost 0.005% preservative-free ophthalmic solution) lisinopril metoprolol (metoprolol succinate 100 mg ER Tab) omeprazole tadalafil (Cialis) Procedures Performed Colonoscopy (05/01/2024), EGD - esophagogastroduodenoscopy (05/01/2024), Colonoscopy, Open heart surgery. Discharge Vitals Heart Rate (Peripheral) 70 Blood Pressure 160/80 Height 176 cm Height 69 in Weight 110 kg Weight 242 lb BMI 35.51 What to do next Scheduled Follow-Up Appointments Saturday 9:45 AM EDT With: ISRAEL RUFFIN, Shade Robison Where: [facility] [place] [id number]- Medications What How Much When Instructions Unchanged aspirin (aspirin 81 mg Oral EC Tab) By Mouth Every day Unchanged clopidogrel (Plavix 75 mg Tab) By Mouth Every day Unchanged furosemide (Lasix 20 mg Tab) By Mouth Every day Unchanged glipiZIDE (glipiZIDE 10 mg ER Tab) By Mouth Every day Unchanged latanoprost ophthalmic (latanoprost 0.005% preservative-free ophthalmic solution) Right eye Every day Unchanged lisinopril 20 Milligram By Mouth Every day Unchanged metoprolol (metoprolol succinate 100 mg ER Tab) By Mouth Every day Unchanged omeprazole 40 Milligram By Mouth Every day Unchanged tadalafil (Cialis) 5 Milligram By Mouth Every 72 hours Allergies No Known Medication Allergies Problems Ongoing - Any problem that you are currently receiving treatment for. Chronic GERD Hiatal hernia Obesity due to excess calories Patient Survey You may receive a survey via text or e-mail asking about your office visit. Please share your experience with us by completing your survey. We appreciate your feedback and thank you for choosing us for your care. Giuseppe [facility] Shai 05-27-2024 CNPN Telephone (GASTNO) OSWALD OCHOA ([id number]) 1955 M Date Time Provider Department 05/27/24 JUSTUS BRAXTON During your visit today, we recorded the following information about you: Marisa Hu RN 05/27/2024 4:21 PM Signed Received referral per Dr. Mooney for subepithelial lesion of the mid esophagus. 05/01/24 EGD was preformed per Dr. Mooney. Z-line irregular, 2 columns of salmon colored mucosa noted Hiatal hernia noted measuring 5 cm Subepithelial lesion appreicated in the mid esophagus Erythema in the antrum, moderate patchy, otherwise normal stomach, biopsies taken to rule out h-pylori Normal duodenum Path as follows: -esophagus, GE junction with moderate chronic inflammation in lamina propria. No intestinal metaplasia -stomach, gastric antral mucosa with mild chronic gastritis, compatible with reactive gastropathy No intestinal metaplasia No H-pylori Please review and advise the above information and advise as to next steps. Pt is on Plavix Thank you. Marisa Bone RN, RN 05/29/2024 1:40 PM Signed I agree may not be a bad idea to bring him in for an OV unless patient would prefer to proceed with the procedure. He will need to stop plavix for 5-7 days. He will need EGD/EUS radial and linear with FNB. Please schedule pt for an office visit with Dr. Braxton for Jul 06 3:30 if pt is agreeable. Thank you Angel Jamison RN 05/29/2024 2:37 PM Signed Spoke to patient and scheduled OV with Dr. Braxton on 07/06/24 at [facility] at 3:30 pm per message below. Allergies As of Date: 05/27/2024 (Not on File) Date Reviewed: Never Reviewed Reason for Visit: Appointment [186] Problem List As Of Date: 05/27/2024 (None) Encounter Status:Closed by ANGEL RODRIGUEZ on 05/29/[address] [facility] CT Chest w/ Contraston 05-22 CT Chest w/ Contrast Exam Date/Time: 05/21/2024 11:12 EDT Reason for Exam: K22.9;Other (please specify) Report IMPRESSION: LARGE HIATAL HERNIA CONTAINING PROXIMAL STOMACH. CIRCUMFERENTIAL WALL THICKENING CAUDAL ESOPHAGUS JUST PROXIMAL TO GASTRIC HERNIATION FINDING MOST LIKELY SECONDARY TO INFLAMMATORY ETIOLOGY/ESOPHAGITIS FROM HIATAL HERNIA. HOWEVER, OTHER ETIOLOGIES, INCLUDING MALIGNANCY CANNOT ENTIRELY EXCLUDE IMAGING OF THE CHEST WITHOUT INTRAVENOUS CONTRAST MEDIUM. 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 TECHNICAL FACTORS: Low dose CT imaging of the chest was obtained and formatted as 2.5 mm contiguous axial images from the thoracic inlet through the adrenal glands. Sagittal and coronal reconstructions obtained during postprocessing. Intravenous contrast medium: None. Comparison: None FINDINGS: Right lung: No nodules, masses, consolidation, pleural effusion, pneumothorax. Left lung: No nodules, masses, consolidation, pleural effusion, pneumothorax. Lymph nodes: No hilar, mediastinal, or axillary lymph node enlargement. Esophagus: Large hiatal hernia containing proximal stomach. Circumferential wall thickening, caudal esophagus, just proximal to gastric herniation (series 2, image 44, series 4, image 32, series 6, image 46). Thoracic aorta: Normal in course and caliber. Cardiac: Median sternotomy. Cardiac size normal. Coronary artery calcification. No pericardial effusion. Upper abdomen:Limited imaging upper abdomen gallbladder surgically absent. Cortical cysts upper pole right kidney. Musculoskeletal:No osteoblastic, and no osteolytic lesions. Report All CT scans at this facility use dose modulation, iterative reconstruction, and/or weight based dosing when appropriate to reduce radiation dose to as low as reasonably achievable. Ordering Provider: Alissa Mooney FINAL REPORT Dictated: 05/22/2024 12:36 pm Signer Armaan RUFFIN Signed (Electronic Signature): 05/22/2024 12:36 pm Signed by: Armaan Manzano MD Transcribed by: WEI Technologist: TRISTIAN Technical Comments GFR (mL/min/1/73m2) >60 Contrast: Isovue 300 Contrast amount in ml's: 100 Normal [facility] CHEMISTRYOrdered By: SYSTEM SYSTEM on 05-21-2024 Creatinine [Mass/Vol] 0.9 mg/dL Normal 0.5 - 1.3 mg/dL Remisol Chem eGFR 92 mL/min/1.73 m2 Normal >=59mL/min /1.73 m2 Remisol Chem Creatinineon 05-21-2024 Creatinine [Mass/Vol] 0.9 mg/dL Normal 0.5-1.3 [facility] Comment on above: Performed By: #### [id number] #### [facility] [address] [place] [address] eGFRon 05-21-2024 eGFR 92 mL/min/1.73 m2 Normal >=59 [facility] Comment on above: Performed By: #### 1 [id number] #### [facility] [address] [place] [address] Reminderson 05-08-2024 Reminders Reminders From: Elizabeth Rangel To: [facility] - Reminders/Recalls; Sent: 05/08/2024 13:47:56 EDT Show up: 04/01/2029 13:47:00 EDT Subject: Ambulatory Reminder- colonoscopy 5 year recall Due Date/Time: 05/01/2029 13:47:00 EDT Reminder/Recall Colonoscopy Dr Mooney- 05/01/2024 5 year recall Normal [facility] Result Letter Officeon 05-08 Result Letter Office Result Letter Office May 08, 2024 OSWALD [address] [place] [address] : 1955 Below is a summary of the results of your recent colonoscopy. COLONOSCOPY WITH POLYP REMOVAL OR BIOPSY Type of polyp tubular adenoma - not cancer but can become cancer if not removed. Additional colonoscopies will be necessary to monitor your condition and assure that new polyps have not developed. Based on your results we are recommending you repeat the procedure in 5 years You will be placed in our reminder system and will receive a reminder letter prior to your next due date. [facility] [phone] Normal [facility] Surgical Pathology Reporton 05-07-2024 Surgical Pathology Report [facility] [address] [place] [address]- Surgical Pathology Report Collected Date/Time: 05/01/2024 09:47 EDT Pathologist: Gerber RUFFIN PhD, Mely Crockett Received Date/Time: 05/01/2024 11:17 EDT Vinicio RUFFIN, Alissa Mooney MD, Alissa Melendez Surgical Pathology Report - 05/07/2024 12:57 EDT - Auth (Verified) Final Diagnosis A: ESOPHAGUS, BIOPSY: - GASTROESOPHAGEAL JUNCTION WITH MODERATE CHRONIC INFLAMMATION IN LAMINA PROPRIA. - NO INTESTINAL METAPLASIA IDENTIFIED. B: STOMACH, BIOPSY: - GASTRIC ANTRAL MUCOSA WITH MILD CHRONIC GASTRITIS, COMPATIBLE WITH REACTIVE GASTROPATHY. - NO INTESTINAL METAPLASIA. - NO H. PYLORI MICROORGANISMS IDENTIFIED WITH IMMUNOSTAIN. C: POLYP, DESCENDING COLON, POLYPECTOMY: - TUBULAR ADENOMA. 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 Hiatal hernia 4. Gastropathy 5. Descending colon polyp 6. Diverticulosis 7. Surgical anastomosis in the sigmoid: 8. Internal hemorrhoids Specimen(s) Received A.Esophagus biopsy B.Gastric biopsy C.Descending colon polyp Gross Description A: Received in formalin labeled with patient name, number, and esophagus biopsy are three fragments of jack/pink tissue ranging from 0.1 cm up to 0.2 cm. The specimen is entirely submitted in one cassette. B: Received in formalin labeled with patient name, number, and gastric biopsy are multiple fragments of jack/pink tissue ranging from less than 0.1 cm up to 0.5 cm in greatest dimension. Specimen is entirely submitted in one cassette. C: Received in formalin labeled with patient name, number, and descending colon polyp are multiple fragments of jack/pink tissue ranging from less than 0.1 cm up to 0.5 cm in greatest dimension. Specimen measures in aggregate 1.5 x 0.5 x 0.1 cm. The specimen is entirely submitted in one cassette. (DC) DC:[facility] Surgical Pathology Report Collected Date/Time: 05/01/2024 09:47 EDT Pathologist: Gerber RUFFIN PhD, Mely Crockett Received Date/Time: 05/01/2024 11:17 EDT Vinicio RUFFIN, Alissa Romo. Alissa Mooney MD. Microscopic Description The use of one or more reagents in the above tests is regulated as an analyte specific reagent (ASR). The test or tests are ordered following initial H&E microscopic examination. The performance characteristics were determined by the [facility]. They have not been cleared or approved by the US Food and Drug Administration. The FDA has determined that such clearance or approval is not necessary. These tests are used for clinical purposes. They should not be regarded as investigational or for research. Appropriate positive and negative controls are performed and are acceptable. Normal [facility] Comment on above: Performed By: #### [id number] #### [facility] [address] [place] [address] Main OR Intraoperative Recor don 05-05-2024 Main OR Intraoperative Record Main OR Intraoperative Record IntraOp Document Type FT Summary Primary Physician: Alissa Mooney MD Finalized Date/Time: 05/05/24 08:07:07 Pt. Name: OSWALD OCHOA/Sex: 1955 Male Med Rec #: [id number] Physician: Alissa Mooney MD Financial #: [id number] Pt. Type: O Room/Bed: / Admit/Disch: 05/01/24 08:00:36 - 05/01/24 23:59:59 Institution: Case Times FT Entry 1 Patient Times In Room 05/01/24 09:39:00 Out Room 05/01/24 10:04:00 Procedure Times Start 05/01/24 09:45:00 Stop 05/01/24 10:01:00 Anesthesia Times Start 05/01/24 09:39:00 Stop 05/01/24 10:04:00 Time at [facility] 05/01/24 09:53:00 Last Modified By: Hamilton Anne RN 05/01/24 10:04:34 General Comments: 0951 EGD completed MSRN 0952 Colonoscopy started MSNR 05/05/24 Chart opened to review and send charges LRoth CSFA Case Attendance FT Entry 1 Entry 2 Entry 3 Case Attendee Lashell VERDUZCO, Christian Anne RN, Joyce Sanchez Role Performed Anesthesiologist Senior Electrical Estimator - Primary Staff - Other Electronic Lab Technician Time In 05/01/24 09:39:00 05/01/24 09:39:00 05/01/24 09:59:00 Time Out 05/01/24 09:45:00 05/01/24 10:04:00 05/01/24 10:04:00 Procedure EGD AND COLONOSCOPY(.) EGD AND COLONOSCOPY(.) EGD AND COLONOSCOPY(.) Comments Dr. Oneal supervising help in room case Last Modified By: Dayana RNHamilton RN, Hamilton Nevarez RN 05/01/24 10:04:35 05/01/24 10:04:35 05/01/24 10:04:35 Entry 4 Entry 5 Entry 6 Case Attendee Gunner RODRIGES, Madisyn Mooney MD, Alissa Oneal MD, Randell Guillory Role Performed Scrub - Primary Surgeon - Primary Anesthesiologist of Record Time In 05/01/24 09:39:00 05/01/24 09:39:00 05/01/24 09:45:00 Time Out 05/01/24 10:04:00 05/01/24 10:04:00 05/01/24 10:04:00 Procedure EGD AND COLONOSCOPY(.) EGD AND COLONOSCOPY(.) EGD AND COLONOSCOPY(.) Comments Last Modified By: Dayana RN, Hamilton Anne RN, Hamilton Nevarez RN 05/01/24 10:04:35 05/01/24 10:04:35 05/01/24 10:04:35 Perioperative Protocols FT Pre-Care Text: Implements protective measures prior to operative or invasive procedure, confirms identity before the operative or invasive procedure, verifies operative procedure, surgical site, and laterality Entry 1 Procedure(s) EGD AND COLONOSCOPY(.) Patient Identity Birthday, ID Band Verified (select at Check, Patient least 2): Participation Consents / H and P Anesthesia Consent, Operative Site N/A Verified H&P, Transfusion Consent Marking Verified Surgical Site No Laterality Verified n/a Verified Procedure Verified Yes Correct Patient Yes Position Verified Availability Equipment, Medication Prep Dry n/a Verified (If Applicable) PreOp Antibiotic No Time Out Christian Coulter, Given Participants Hamilton Anne RN, Gunner COUNTY HISTORIAN, Vinicio Fuentes MD, Alissa Nunez, Jm RUFFIN, Randell Bernardo Time Out Complete 05/01/24 09:43:00 Outcomes Met? Yes Last Modified By: Hamilton Anne RN 05/01/24 09:45:52 Post-Care Text: The patient is free from signs and symptoms of injury caused by extraneous objects Allergy Information FT Pre-Care Text: Verifies allergies Entry 1 Allergies Reviewed? Yes Allergies Reviewed Self/Patient With Outcomes Met? Yes Last Modified By: Hamilton Anne RN 05/01/24 09:41:46 Post-Care Text: The patient received appropriate medication(s) safely administered during the perioperative period Surgical Procedures FT Entry 1 Procedure Description Procedure EGD AND COLONOSCOPY Modifiers . Surgeon Description EGD with esophagus biopsy and gastric biopsy. Colonoscopy with descending colon polypectomy Primary Procedure Yes Primary Surgeon Vinicio RUFFIN, Alissa Nunez Start 05/01/24 09:45:00 Stop 05/01/24 10:01:00 Anesthesia Type General Surgical Service Gastroenterology Wound Class 2 - Clean-Contaminated Last Modified By: Hamilton Anne RN 05/01/24 10:04:40 General Case Data FT Pre-Care Text: Classifies surgical wound, implements aseptic technique, initiates traffic control Entry 1 Case Information OR ENDO 1 FT Case Level Level 2 Wound Class 2 - Clean-Contaminated Specialty Gastroenterology ASA Class 3 Preop Diagnosis Hiatal hernia, Chronic Postop Same As Preop No gerd, History of colon polyps Postop Diagnosis EGD- Gastropathy, Outcomes Met? Yes Hiatal hernia, Barretts esophagus. Colonoscopy- Diverticulosis, Descending colon polyp, Internal hemorrhoids Last Modified By: Hamilton Anne RN 05/01/24 10:04:19 Post-Care Text: The patient is free from signs and symptoms of infection Skin Assessment (Pre Procedure) FT Pre-Care Text: Implements protective measures to prevent skin/ tissue injury due to thermal or mechanical sources Evaluates for signs and symptoms of physical injury to skin and tissue Entry 1 Skin Integrity Dry, Warm Skin Abnormality No Outcomes Met? Yes Last Modified By: Hamilton Anne RN 05/01/24 09:43:05 Post-Care Samuel (more content not included)... [facility] Provider Letteron 05-05-2024 Provider Letter Provider Letter May 05, 2024 OSWALD [address]nell[address] [place] [address] : 1955 Dear Oswald, We have been trying to reach you with no success. It is important that you return our call regarding further orders upon receiving this letter. Also, at the time of your call, please provide us with your current information. Thank you for your prompt attention to this matter. Sincerely, [facility] Discharge Instructionson Discharge Instructions Discharge Instructions OSWALD OCHOA :1955 Visit Date:05/01/2024 Inpatient Discharge Instructions Your Care Team Admitting Physician - Alissa Mooney MD Referring Physician - Alissa Mooney MD. 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 This Is Your Medications List aspirin (aspirin 81 mg Oral EC Tab) clopidogrel (Plavix 75 mg Tab) furosemide (Lasix 20 mg Tab) glipiZIDE (glipiZIDE 10 mg ER Tab) lactobacillus rhamnosus GG ([facility] noodls [facility]) latanoprost ophthalmic (latanoprost 0.005% preservative-free ophthalmic solution) lisinopril metoprolol (metoprolol succinate 100 mg ER Tab) omeprazole tadalafil (Cialis) Procedure History Colonoscopy. Discharge Vitals Temperature (Temporal Artery) 36.6 ?C Heart Rate (Monitored) 85 Respiratory Rate 14 Blood Pressure 132/80 Height 172.7 cm Weight 110.9 kg BMI 37.18 What to do next Instructions From Your Doctor No qualifying data available. New Follow Up Appointments after Discharge Follow Up with Vinicio RUFFIN, PRIYANKA Kuhn, [facility] When: Comments: Office will call Date and Time of Follow-up Appt. Where: [address], [address] [place] [phone] Medications What How Much When Instructions Next Dose Unchanged aspirin (aspirin 81 mg Oral EC Tab) By Mouth Every day Unchanged clopidogrel (Plavix 75 mg Tab) By Mouth Every day Unchanged furosemide (Lasix 20 mg Tab) By Mouth Every day Unchanged glipiZIDE (glipiZIDE 10 mg ER Tab) By Mouth Every day Unchanged lactobacillus rhamnosus GG ([facility] [place]) By Mouth Every day Unchanged latanoprost ophthalmic (latanoprost 0.005% preservative-free ophthalmic solution) Right eye Every day Unchanged lisinopril 20 Milligram By Mouth Every day Unchanged metoprolol (metoprolol succinate 100 mg ER Tab) By Mouth Every day Unchanged omeprazole 40 Milligram By Mouth Every day Unchanged tadalafil (Cialis) 5 Milligram By Mouth Every 72 hours Test Results No qualifying data available. Allergies No Known Medication Allergies Problems Ongoing - Any problem that you are currently receiving treatment for. Chronic GERD Hiatal hernia Obesity due to excess calories [employer] Diverticulosis Many people have small pouches in their colon called diverticulum. The diverticulum bulge outward through weak spots in the colon. You could have one or more of these pouches in the colon. The condition of having these pouches in the colon is called diverticulosis or diverticular disease. Diverticulosis is usually diagnosed by tests to evaluate something else. For example, you may have had a colonoscopy to screen for colon cancer when the diverticulosis was found. Most people with diverticulosis do not have any discomfort or problems. If symptoms develop, they may include mild cramps, bloating, and constipation. A complication of this condition is called diverticulitis. This is when the diverticulum become inflamed and infected. How to treat diverticulosis: Increasing the amount of fiber in the diet may reduce symptoms of diverticulosis and prevent complications such as diverticulitis (infected diverticuli). Fiber keeps stool soft and lowers pressure inside the colon so that bowel contents can move through easily. You should eat 20 to 35 grams of fiber each day. The table below shows the amount of fiber in some foods that you can easily add to your diet. Adding fiber slowly may decrease the bloating and fullness sometimes felt with an immediate high fiber diet. The doctor may also recommend taking a fiber product such as Citrucel or Metamucil once a day. In the past people with diverticulosis were to avoid nuts, corn, and seeds. This has not been found to be true. If you find that certain foods create cramping or bloating, avoid that food. Foods high in fiber include: Fresh fruits, fresh vegetables, legumes (beans), whole wheat bread, bran muffins or cereal, and nuts. See the table below for examples of high fiber foods. Remember, your goal is 20-35 grams per day. Amount of fiber in different foods Food Serving Grams of fiber Fruits Apple (with skin) 1 medium apple 4.4 Banana 1 medium banana 3.1 Oranges 1 orange 3.1 Prunes 1 cup, pitted 12.4 Juices Apple, unsweetened, w/added ascorbic acid 1 cup 0.5 Grapefruit, white, canned, sweetened 1 cup 0.2 Grape, unsweetened, w/added ascorbic acid 1 cup 0.5 Taylor 1 cup 0.7 Vegetables Cooked Green beans 1 cup 4.0 Carrots 1/2 cup sliced (more content not included)... Normal [facility] Comment on above: Result Comment: Elec tronically Signed By: Heber BLANCA, Tova\.br\Date and Time Signed: 05/01/24 10:17 EDT H&P Updateon 05-01-2024 H&P Update H&P Update Patient: OSWALD OCHOA Age: 69 years Sex: Male : 1955 Associated Diagnoses: None Author: Vinicio RUFFIN, Alissa Nunez Preoperative Information Chief compliant/Indication for procedure: GERD and polyps Chief Complaint as above Review of Systems All systems reviewed, negative except as mentioned above Physical Examination Vital Signs (last 24 hrs) Last Charted Temp Temporal 36.6 DegC (MAY 01 08:34) Heart Rate Monitored 69 bpm (MAY 01 08:34) Resp Rate 16 br/min (MAY 01 08:34) SBP H 160 mmHg (MAY 01 08:34) DBP H 90 mmHg (MAY 01 08:34) Weight 110.9 kg (MAY 01 08:14) BMI 37.18 (MAY 01 08:14) General: in Nad Abdomen: Soft, NTND Impression and Plan Diagnosis: GERD and polyps -EGD and colonoscopy Normal [facility] Main OR PACU II Recordon Main OR PACU II Record Main OR PACU II Record PACU Phase II Document Type FT Summary Primary Physician: Alissa Mooney MD Finalized Date/Time: 05/01/24 13:09:40 Pt. Name: OSWALD OCHOA/Sex: 1955 Male Med Rec #: [id number] Physician: Alissa Mooney MD Financial #: [id number] Pt. Type: O Room/Bed: / Admit/Disch: 05/01/24 08:00:36 - Institution: Case Times PACU II FT Pre-Care Text: Identifies barriers to communication and implements measures to provide psychological support and determines knowledge level Develops individualized plan of care, and ensures continuity of care Maintains patient's dignity and privacy, and maintains patient confidentiality Identifies and reports philosophical, cultural, and spiritual beliefs and values Identifies individual values and wishes concerning care administers prescribed antibiotic therapy and immunizing agents as ordered, Evaluates postoperative tissue perfusion Implements thermoregulation measures, and monitors body temperature Evaluates postoperative respiratory status Evaluates postoperative cardiac status Evaluates postoperative neurological status Assesses pain control, collaborated in initiating patient-controlled analgesia and implements alternative methods of pain control Verifies allergies, administers prescribed medications and solutions, evaluates response to medications Entry 1 In PACU II 05/01/24 10:05:00 Discharge from PACU 05/01/24 10:25:00 II Outcomes Met? Yes Last Modified By: Tova Buck RN 05/01/24 13:09:38 Post-Care Text: The patient demonstrates knowledge of the expected response to the operative or invasive procedure The patient's care is consistent with the individualized perioperative plan of care The patient's right to privacy is maintained The patient's value system, lifestyle, ethnicity, and culture are considered, respected, and incorporated into the perioperative plan of care The patient participates in decisions affecting his or her perioperative plan of care. The patient is free from signs and symptoms of infection The patient has wound/tissue perfusion consistent with or improved from baseline levels established preoperatively The patient is at or returning to normothermia at the conclusion of the immediate postoperative period The patient's respiratory function is consistent with or improved from baseline levels established preoperatively The patient's cardiovascular status is consistent with or improved from baseline levels established preoperatively The patient's neurological status is consistent with or improved from baseline levels established preoperatively The patient demonstrates and/or reports adequate pain control throughout the perioperative period The patient received appropriate medication(s), safely administered during the perioperative period Finalized By: Tova Buck RN Document Signatures Signed By: Tova Buck RN 05/01/24 13:04 Tova Buck RN 05/01/24 13:09 Normal [facility] Main OR Preoperative Recordo n 05-01-2024 Main OR Preoperative Record Main OR Preoperative Record Holding Area Document Type FT Summary Primary Physician: Alissa Mooney MD Finalized Date/Time: 05/01/24 08:37:09 Pt. Name: JEFFERYOSWALD/Sex: 1955 Male Med Rec #: [id number] Physician: Alissa Mooney MD Financial #: [id number] Pt. Type: O Room/Bed: / Admit/Disch: 05/01/24 08:00:36 - Institution: Case Times Holding FT Pre-Care Text: Verifies consent for planned procedure, identifies individual values and wishes concerning care, includes family members in perioperative teaching Secures patient's records' belongings, and valuables, maintains patient's dignity and privacy, and maintains patient confidentiality Entry 1 In Holding 05/01/24 08:15:00 Outcomes Met? Yes Last Modified By: Makayla Yi RN 05/01/24 08:31:53 Post-Care Text: The patient participates in decisions affecting his or her perioperative plan of care The patient's right to privacy is maintained Surgery Checklist FT Entry 1 Patient Birthday, ID Band Procedure History and Physical, Identification: Check, Patient Verification: Surgical Consent, With Participation Patient NPO after Midnight: No Date/Time: 05/01/24 04:30:00 Personal Items: Cataract Lens Implant, Personal Items clothes, dentures, x1 Glasses, Jewelry Comment: ring, bilateral lense implants Limitations: no Complaints of Pain: No Pain Comment: no Operative Site n/a Marking: Marked By: n/a Availability Equipment Verified: Does Patient Smoke No Patient states Yes Comment - Adult Luiza- postop adult Supervision supervision available Case Cancelled in No Holding Area see comments below for reason Last Modified By: Makayla Yi RN 05/01/24 08:37:07 Finalized By: Makayla Yi RN Document Signatures Signed By: Makayla Yi RN 05/01/24 08:37 Normal [facility] Operative Reporton Operative Report Operative Report Patient: OSWALD OCHOA Age: 69 years Sex: Male : 1955 Associated Diagnoses: None Author: Alissa Mooney MD Pre-Procedure Procedure Date 05/01/2024 10:06:00 . Procedure Type: Colonoscopy with removal of tumor(s), polyp(s), or other lesion(s) by cold snare technique. Procedure provider Performed by Alissa Mooney MD. Current history and physical Documented on chart. Colonoscopy ([id number]).. Past Medical History No active or resolved past medical history items have been selected or recorded.. Family History Heart disease Father . Procedure History Colonoscopy ([id number]).. Colorectal neoplasm risk assessment High risk Previous history of polyps. . Informed Consent After discussing the rationale, risks and benefits, and alternatives to this procedure, the patient provided signed consent for the procedure. Pre-procedure diagnosis: History of colon polyps. Medications (Selected) Inpatient Medications Ordered Lactated Ringers IV Genoveva 1000 mL 1,000 mL: 1,000 mL, IV, 100 mL/hr, Routine, Start date 05/01/24 9:49:00 EDT, 10 hour(s), Total volume (mL): 1,000, 110.9 kg, 2.31, m2 Sodium Chloride 0.9% IV Genoveva 1000 mL 1,000 mL: 1,000 mL, IV, 20 mL/hr, Routine, Start date 05/01/24 6:42:00 EDT, 50 hour(s), Total volume (mL): 1,000, 110.9 kg, 2.31, m2 Documented Medications Documented Cialis: 5 mg, Oral, q72hr, Refills(s) 0, Erectile dysfunction [facility] Digestive Health: Oral, Daily, Refill(s) 0, Prophylaxis Lasix 20 mg Tab: mg tab(s), Oral, Daily, Refills(s) 0, diuretic/water pill Plavix 75 mg Tab: mg tab(s), Oral, Daily, Refills(s) 0, Blood Thinner aspirin 81 mg Oral EC Tab: mg tab(s), Oral, Daily, Refills(s) 0, Blood Thinner glipiZIDE 10 mg ER Tab: mg tab(s), Oral, Daily, Refills(s) 0, Blood glucose latanoprost 0.005% preservative-free ophthalmic solution: Eye-Right, Daily, Refill(s) 0, Ocular congestion lisinopril: 20 mg, Oral, Daily, Refills(s) 0, High blood pressure metoprolol succinate 100 mg ER Tab: mg tab(s), Oral, Daily, Refills(s) 0, High blood pressure omeprazole: 40 mg, Oral, Daily, Refills(s) 0, Control of stomach acid Anticoagulant/antiplatelet None. ASA Classification: Class II. . Monitoring: See anesthesia record. . Procedure The procedure was performed in the hospital. See anesthesia record for sedation given during procedure. The patient was positioned starting in the left lateral decubitus position. Endoscope type used was an adult-size. The endoscope was lubricated then introduced through the anus. The scope was advanced to the terminal ileum. No difficulties encountered during the procedure. The bowel preparation quality was good and was adequate (see polyps greater than or equal to 6 millimeters). The patient tolerated the procedure well. Time to Cecum: 1 min Withdrawal time 8 min Last colonoscopy: 2019 Findings 1. Normal rectal exam 2. Five mm sessile polyp seen in the descending colon resected with cold snare completely 3. Diverticulosis throughout the whole colon 4. Qyxn-tk-[id number] surgical anastomosis in the sigmoid colon 5. Internal hemorrhoids 6. Normal terminal ileum Images Procedure images: Rec1_hd_video_2023__T09_ [id number].jpg Rec1_hd_video_2023__T09_ 04_03_345.jpg Rec1_hd_video_2023__T09_ 04_[id number].jpg Rec1_hd_video_2023__T09_ 07_05_[id number].jpg Rec1_hd_video_2023__T09_ 07_55_[id number].jpg Rec1_hd_video_4__T09_ 08_11_417.jpg Rec1_hd_video_2023__T09_ 10_06_002.jpg Rec1_hd_video_4__T09_ 10_18_585.jpg Rec1_hd_video_2023__T09_ 10_40_884.jpg Rec1_hd_video_2023__T09_ 11_25_[id number].jpg . Post-Procedure Complications: none. Estimated blood loss: Minimal. Specimens: sent to pathology. Devices/ implants: none left in place. Impression and Plan Descending colon polyp Diverticulosis Surgical anastomosis in the sigmoid: Internal hemorrhoids Recommendations: Repeat colonoscopy:: In 5 years. Follow-up:: in clinic for 1-2 weeks when pathology is available. Diet:: Previous. Medication resumption:: Continue current medications, Avoid NSAIDs. Return to activities:: After 24 hours. Education and Follow-up: Counseled: Patient, Family. [facility] Comment on above: Result Comment: Elec tronically Signed By: Mouchli MD, Mohamad A.\.br\Date and Time Signed: 05/01/24 10:08 EDT Other Comment: Sadia ludwig Attachment - attachment storage system not supported [id number] Can be viewed in source system Missing Attachment - attachment storage system not supported [id number] Can be viewed in source system Missing Attachment - attachment storage system not supported [id number] Can be viewed in source system Missing Attachment - attachment storage system not supported [id number] Can be viewed in source system Missing Attachment - attachment storage system not supported [id number] Can be viewed in source system Missing Attachment - attachment storage system not supported [id number] Can be viewed in source system Missing Attachment - attachment storage system not supported [id number] Can be viewed in source system Missing Attachment - attachment storage system not supported [id number] Can be viewed in source system Missing Attachment - attachment storage system not supported [id number] Can be viewed in source system Missing Attachment - attachment storage system not supported [id number] Can be viewed in source system Operative Report Operative Report Patient: OSWALD OCHOA Age: 69 years Sex: Male : 1955 Associated Diagnoses: None Author: Alissa Mooney MD Pre-Procedure Procedure Date 05/01/2024 10:03:00 . Procedure Type: Esophagogastroduodenoscopy with biopsy. Procedure provider Performed by Alissa Mooney MD. Current history and physical Documented on chart. Informed Consent After discussing the rationale, risks and benefits, and alternatives to this procedure, the patient provided signed consent for the procedure. Pre-procedure diagnosis: anemia. Medications (Selected) Inpatient Medications Ordered Lactated Ringers IV Genoveva 1000 mL 1,000 mL: 1,000 mL, IV, 100 mL/hr, Routine, Start date 05/01/24 9:49:00 EDT, 10 hour(s), Total volume (mL): 1,000, 110.9 kg, 2.31, m2 Sodium Chloride 0.9% IV Genoveva 1000 mL 1,000 mL: 1,000 mL, IV, 20 mL/hr, Routine, Start date 05/01/24 6:42:00 EDT, 50 hour(s), Total volume (mL): 1,000, 110.9 kg, 2.31, m2 Documented Medications Documented Cialis: 5 mg, Oral, q72hr, Refills(s) 0, Erectile dysfunction [facility] Digestive Health: Oral, Daily, Refill(s) 0, Prophylaxis Lasix 20 mg Tab: mg tab(s), Oral, Daily, Refills(s) 0, diuretic/water pill Plavix 75 mg Tab: mg tab(s), Oral, Daily, Refills(s) 0, Blood Thinner aspirin 81 mg Oral EC Tab: mg tab(s), Oral, Daily, Refills(s) 0, Blood Thinner glipiZIDE 10 mg ER Tab: mg tab(s), Oral, Daily, Refills(s) 0, Blood glucose latanoprost 0.005% preservative-free ophthalmic solution: Eye-Right, Daily, Refill(s) 0, Ocular congestion lisinopril: 20 mg, Oral, Daily, Refills(s) 0, High blood pressure metoprolol succinate 100 mg ER Tab: mg tab(s), Oral, Daily, Refills(s) 0, High blood pressure omeprazole: 40 mg, Oral, Daily, Refills(s) 0, Control of stomach acid Anticoagulant/antiplatelet None. ASA Classification: Class II. . Monitoring: See anesthesia record. . Procedure The procedure was performed in the hospital. See anesthesia record for sedation given during procedure. The patient was positioned starting in the left lateral decubitus position and with safety measures. Endoscope type used was an adult-size, introduced orally, advanced to the 2nd portion of the duodenum. No difficulty was encountered during the procedure. Views were excellent. The patient tolerated the procedure well. Findings 1. Z-line irregular at 35 cm. 2 columns of salmon-colored mucosa (C0M2) status post biopsies. Hiatal hernia measuring 5 cm. Subepithelial lesion appreciated in the mid esophagus. 2. Erythema in the antrum, moderate patchy. Otherwise normal stomach. Biopsies of the stomach were taken to rule out H. pylori. 3. Normal duodenum. Images Procedure images: Rec_hd_video_2023__08_ [id number].jpg Rec_hd_video_2023__08_ 57_42_599.jpg Rec_hd_video_2023__T08_ 58_09_674.jpg Rec_hd_video_2023__04T08_ 59_13_[id number].jpg Rec1_hd_video_2023__T09_ 00_15_135.jpg Rec1_hd_video_2023__T09_ 00_[id number].jpg . Post-Procedure Complications: none. Estimated blood loss: minimal. Specimens: sent to pathology. Devices/ implants: none left in place. 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 Hiatal hernia Gastropathy Recommendations: -Resume previous diet -Resume home medications -Await pathology results, follow in GI clinic in 1-2 after discharge [facility] Comment on above: Result Comment: Elec tronically Signed By: Vinicio RUFFIN, Alissa Nunez\.br\Date and Time Signed: 05/01/24 10:06 EDT Other Comment: Sadia ludwig Attachment - attachment storage system not supported [id number] Can be viewed in source system Missing Attachment - attachment storage system not supported [id number] Can be viewed in source system Missing Attachment - attachment storage system not supported [id number] Can be viewed in source system Missing Attachment - attachment storage system not supported [id number] Can be viewed in source system Missing Attachment - attachment storage system not supported [id number] Can be viewed in source system Missing Attachment - attachment storage system not supported [id number] Can be viewed in source system Office Visiton 04-27-2024 Follow-up visit [id number] Oswald Ochoa 1955 M Date Provider Department Center 04/27/2024 3848-ALISSA GALINDO [facility] No family history on file Level of Service:[address]135 [place] OFFICE/OUTPATIENT ESTABLISHED LOW MDM 20 MIN Normal [facility] Ambulatory Visit Summaryon 0 04-16-2024 Ambulatory Visit Summary Ambulatory Visit Summary OSWALD OCHOA :1955 Visit Date:04/16/2024 Ambulatory Visit Instructions Your Diagnosis History of colon polyps Hiatal hernia Chronic GERD Obesity due to excess calories Your Care Team Attending Physician - Alissa Mooney MD Primary Care Physician - JACOB MCKEON MD This Is Your Medications List Contact prescribing physician if questions or concerns aspirin (aspirin 81 mg Oral EC Tab) clopidogrel (Plavix 75 mg Tab) furosemide (Lasix 20 mg Tab) glipiZIDE (glipiZIDE 10 mg ER Tab) lactobacillus rhamnosus GG ([employer] [facility]) latanoprost ophthalmic (latanoprost 0.005% preservative-free ophthalmic solution) lisinopril metoprolol (metoprolol succinate 100 mg ER Tab) omeprazole tadalafil (Cialis) Procedures Performed Colonoscopy. Discharge Vitals Heart Rate (Peripheral) 51 Blood Pressure 162/89 Height 172.7 cm Height 68 in Weight 110.9 kg Weight 243.98 lb BMI 37.18 What to do next Scheduled Follow-Up Appointments Saturday 9:15 AM EDT Where: [facility] Medications What How Much When Instructions Unchanged aspirin (aspirin 81 mg Oral EC Tab) By Mouth Every day Contact prescribing physician if questions or concerns Unchanged clopidogrel (Plavix 75 mg Tab) By Mouth Every day Contact prescribing physician if questions or concerns Unchanged furosemide (Lasix 20 mg Tab) By Mouth Every day Contact prescribing physician if questions or concerns Unchanged glipiZIDE (glipiZIDE 10 mg ER Tab) By Mouth Every day Contact prescribing physician if questions or concerns Unchanged lactobacillus rhamnosus GG ([employer]) By Mouth Every day Contact prescribing physician if questions or concerns Unchanged latanoprost ophthalmic (latanoprost 0.005% preservative-free ophthalmic solution) Right eye Every day Contact prescribing physician if questions or concerns Unchanged lisinopril 20 Milligram By Mouth Every day Contact prescribing physician if questions or concerns Unchanged metoprolol (metoprolol succinate 100 mg ER Tab) By Mouth Every day Contact prescribing physician if questions or concerns Unchanged omeprazole 40 Milligram By Mouth Every day Contact prescribing physician if questions or concerns Unchanged tadalafil (Cialis) 5 Milligram By Mouth Every 72 hours Contact prescribing physician if questions or concerns Allergies No Known Medication Allergies Problems Ongoing - Any problem that you are currently receiving treatment for. Chronic GERD Hiatal hernia Obesity due to excess calories Patient Survey You may receive a survey via text or e-mail asking about your office visit. Please share your experience with us by completing your survey. We appreciate your feedback and thank you for choosing us for your care. Normal [facility] Gastroenterology Office/Clin ic Noteon 04-16-2024 Gastroenterology Office/Clinic Note Gastroenterology Office/Clinic Note Chief Complaint Colonoscopy HPI Staff This is a 69 year old male who presents today for a 3 year recall. OVERDUE Denies Blood Thinners Denies GLP-1 Agonists Denies any family history of colon cancer. Denies Dysphagia, abdominal pain, constipation, diarrhea or bloody stools. Denies any recent imaging or labs EGD w/ Dr Downs 09/17/18 Impression and Plan 1. Normal esophagus, Z line at 30 cm 2. Normal gastric mucosa, random biopsies obtained to rule out H. pylori 3. Large hiatal hernia, 10 cm Colonoscopy w/ Dr Downs 09/17/18 Impression and Plan 1. Normal esophagus, Z line at 30 cm 2. Normal gastric mucosa, random biopsies obtained to rule out H. pylori 3. Large hiatal hernia, 10 cm Final Diagnosis (Verified) A: POLYPS, TRANSVERSE COLON, POLYPECTOMY: ? TUBULAR ADENOMAS. B: POLYP, ASCENDING COLON, POLYPECTOMY: ? TUBULAR ADENOMA. C: STOMACH, BIOPSY: ? ANTRAL AND BODY MUCOSA WITH MILD CHRONIC GASTRITIS. ? PROTON PUMP INHIBITOR CHANGES SUGGESTED. ? NO INTESTINAL METAPLASIA IDENTIFIED. History of Present Illness I have reviewed HPI staff note, most recent labs and imaging, more than 30 minutes spent reviewing the chart, during encounter, placing orders and counseling the patient. PT with regurgitation on Plavix for hx of open heart surgery on Prilosec for GERD hx of colon polyps in 2019 here to schedule repeat EGD and colonoscopy Review of Systems PHQ Score Initial Depression Screen Score: 0 SCORE All systems reviewed, negative except as mentioned above Physical Exam Vitals & Measurements HR: 51(Peripheral) BP: 162/89 HT: 68 in HT: 172.7 cm WT: 110.9 kg WT: 243.98 lb BMI: 37.18 General: alert, no acute distress HEENT: atraumatic normocephalic Cardiovascular: regular rate and rhythm, normal peripheral perfusion Respiratory: Lungs CTA, respirations non labored Extremities: no deformity, no trauma Abdomen: Benign, soft, nontender nondistended Assessment/Plan 1. History of colon polyps (Z86.010: Personal history of colonic polyps) Ordered: Colonoscopy (Hospital Procedure) 2. Hiatal hernia (K44.9: Diaphragmatic hernia without obstruction or gangrene) 3. Chronic GERD (K21.9: Gastro-esophageal reflux disease without esophagitis) 4. Obesity due to excess calories (E66.09: Other obesity due to excess calories) Schedule upper endoscopy to evaluate GERD and hiatal hernia Schedule colonoscopy given history of colon polyps Advised to lose weight and eat healthy Follow-up No qualifying data available Problem List/Past Medical History Ongoing Chronic GERD Hiatal hernia Obesity due to excess calories Historical No qualifying data Procedure/Surgical History Colonoscopy. Medications aspirin 81 mg Oral EC Tab, Oral, Daily Cialis, 5 mg, Oral, q72hr [facility] [employer] [facility], Oral, Daily glipiZIDE 10 mg ER Tab, Oral, Daily Lasix 20 mg Tab, Oral, Daily latanoprost 0.005% preservative-free ophthalmic solution, Eye-Right, Daily lisinopril, 20 mg, Oral, Daily metoprolol succinate 100 mg ER Tab, Oral, Daily omeprazole, 40 mg, Oral, Daily Plavix 75 mg Tab, Oral, Daily Allergies No Known Medication Allergies Social History Tobacco Never (less than 100 in lifetime) Tobacco Use:. Never Smokeless Tobacco Use:., 04/16/2024 Family History Heart disease: Father. Immunizations Vaccine Date Status pneumococcal 20-valent conjugate vaccine 06/05/2022 Recorded influenza virus vaccine, inactivated 06/05/2022 Recorded influenza virus vaccine, inactivated 05/02/2018 Recorded influenza virus vaccine, inactivated 05/15/2017 Recorded influenza virus vaccine, inactivated 05/04/2016 Recorded Normal [facility] Comment on above: Result Comment: Elec tronically Signed By: Vinicio RUFFIN, Alissa Nunez\.br\Date and Time Signed: 04/16/24 10:43 EDT Office Visiton 11-05-2023 Follow-up visit [id number] Oswald Ochoa 1955 M Date Provider Department Center 11/05/2023 3848-ALISSA GALINDO [facility] No family history on file Level of Service:90711 [place] OFFICE/OUTPATIENT ESTABLISHED LOW MDM 20 MIN Reason for Visit and Comments: Follow-up [047337] - 6 month follow up Normal [facility] PROF CHEM 8 (BAS METB)on Anion gap [Moles/Vol] 16.3 mmol/L Normal [facility] Comment on above: Performed By: #### B MP ####[facility] [address] [place] [address]Dr. Mely Mayes Calcium [Mass/Vol] 9.4 mg/dL Normal 8.5-10.1 [facility] Comment on above: Performed By: #### B MP ####[facility] [address] [place] [address]Dr. Mely Mayes Chloride [Moles/Vol] 98 mmol/L Normal 98-107 [facility] Comment on above: Performed By: #### B MP ####[facility] [address] [place] [address]Dr. Mely Mayes CO2 [Moles/Vol] 26.0 mmol/L Normal 21.0-32.[address] [facility] Comment on above: Performed By: #### B MP ####[facility] [address] [place], [place] [address]Dr. Mely Mayes Creatinine [Mass/Vol] 1.36 mg/dL Critically high 0.70-1.30 [facility] Comment on above: Performed By: #### B MP ####[facility] [address] [place], [place] [address]Dr. Mely Gerber EGFR-AF BRITISH >60 Normal >=[address] [facility] Comment on above: Performed By: #### B MP ####[facility] [address] [place] [address]Dr. Leigh Anndayana Gerber EGFR-NON AF BRITISH 52 mL/min/1.73m2 Critically low >=60 [facility] Comment on above: Performed By: #### B MP ####[facility] [address] [place] [address]Dr. Leigh Anndayana Gerber Glucose [Mass/Vol] 211 mg/dL Critically high 74-[address] [facility] Comment on above: Performed By: #### B MP ####[facility] [address] [place] [address]Dr. Leigh Anndayana Gerber Potassium [Moles/Vol] 4.3 mmol/L Normal 3.5-5.1 [facility] Comment on above: Performed By: #### B MP ####[facility] [address] [place], [place] [address]Sx. Mely Mayes Sodium [Moles/Vol] 136 mmol/L Normal 136-145 [facility] Comment on above: Performed By: #### B MP ####[facility] [address] [place], [place] [address]Bm. Mely Mayes Urea nitrogen [Mass/Vol] 10.0 mg/dL Normal 7.0-18.0 [facility] Comment on above: Performed By: #### B MP ####[facility] [address] [place], [place] [address]Hn. Mely Mayes Urea nitrogen/Creatinin e [Mass ratio] 7.4 mg/mg Normal [facility] Comment on above: Performed By: #### B MP ####[facility] [address] [place], [place] [address]Wa. Mely Mayes ECHOCARDIO M/2D COMPLETEon 0 11-20-2022 ECHOCARDIO M/2D COMPLETE Patient: OSWALD OCHOA Exam Date: 11/20/2022 : 1955 Gender:M Ordering : [facility] Admission #: [id number] Family : Order #: [id number] CLICK HERE TO VIEW EXAM ECHOCARDIOGRAM REPORT [...] Katia Mcdaniel M.D. on 11/21/2022 at 08:25 Normal [facility] STRESS/REST MULTIon 11-20 NM STRESS/REST MULTI Patient: OSWALD OCHOA Exam Date: 11/20/2022 : 1955 Gender:M Ordering : [facility] Admission #: [id number] Family : Order #: [id number] CLICK HERE TO VIEW EXAM RADIOLOGY REPORT [...] medicine myocardial perfusion scan. Dictated by: Chris Vital M.D. on 11/22/2022 at 16:09 Approved by: Chris Vital M.D. on 11/22/2022 at 16:12 Normal [facility] BNPon 11-12-2022 Natriuretic peptide B (Bld) [Mass/Vol] 207.0 pg/mL Normal <=900.0 [facility] Comment on above: Performed By: #### L IPID, BNP, CMP #### [facility] [address] [address] [address] Mely Mayes LIPID PROFILEon 11-12-2022 CHOL-HDL RATIO NORM SEE BELOW Normal [facility] Comment on above: Result Comment: 3.3 - 4.4 LOW RISK 4.4 - 7.1 AVERAGE RISK 7.1 - 11.0 MODERATE RISK >11.0 HIGH RISK Performed By: #### L IPID, BNP, CMP #### [facility] [address] [place] [address] Dr. Mely Mayes Cholesterol [Mass/Vol] 166 mg/dL Normal <=200 [facility] Comment on above: Performed By: #### L IPID, BNP, CMP #### [facility] [address] [address] [address] Mely Mayes Cholesterol in HDL [Mass/Vol] 38 mg/dL Critically low 40-60 [facility] Comment on above: Performed By: #### L IPID, BNP, CMP #### [facility] [address] [address] [address] Mely Mayes Cholesterol in LDL [Mass/Vol] 106.2 mg/dL Normal [facility] Comment on above: Performed By: #### L IPID, BNP, CMP #### [facility] [address] [address] [address] Mely Mayes Cholesterol.total/ Cholesterol in HDL [Mass ratio] 4.4 {ratio} Normal [facility] Comment on above: Performed By: #### L IPID, BNP, CMP #### [facility] [address] [address] [address] Mely Mayes HDL NORMAL > or = 60 mg/dl - LO W CARDIOVASCULAR RISK <40 mg/dl - HIGH CARDIOVASCULAR RISK Normal [facility] Comment on above: Performed By: #### L IPID, BNP, CMP #### [facility] [address] [address] [address] Mely Mayes LDL CALC NORMAL SEE BELOW Normal [facility] Comment on above: Result Comment: <100 mg/dl OPTIMAL 100 - 129 mg/dl NEAR OR ABOVE OPTIMAL 130 - 159 mg/dl BORDERLINE HIGH 160 - 189 mg/dl HIGH >190 mg/dl VERY HIGH Performed By: #### L IPID, BNP, CMP #### [facility] [address] [address] [address] Mely Mayes Triglyceride [Mass/Vol] 109 mg/dL Normal <=150 [facility] Comment on above: Performed By: #### L IPID, BNP, CMP #### [facility] [address] [address] [address] Mely Mayes VLDL CALC 21.8 mg/dL Normal [facility] Comment on above: Performed By: #### L IPID, BNP, CMP #### [facility] [address] [address] [address] Mely Mayes PROF 14(COMP METB)on 023 Albumin [Mass/Vol] 4.1 g/dL Normal 3.4-5.0 [facility] Comment on above: Performed By: #### L IPID, BNP, CMP #### [facility] [address] [address] [address] Mely Mayes Albumin/Globulin [Mass ratio] 1.1 {ratio} Normal [facility] Comment on above: Performed By: #### L IPID, BNP, CMP #### [facility] [address] [address] [address] Mely Mayes ALP [Catalytic activity/Vol] 79 U/L Normal 46-116 [facility] Comment on above: Performed By: #### L IPID, BNP, CMP #### [facility] [address] [address] [address] Mely Mayes ALT [Catalytic activity/Vol] 36 U/L Normal 16-63 [facility] Comment on above: Performed By: #### L IPID, BNP, CMP #### [facility] [address] [place] [address] Dr. Mely Mayes Anion gap [Moles/Vol] 13.7 mmol/L Normal [facility] Comment on above: Performed By: #### L IPID, BNP, CMP #### [facility] [address] [place] [address] Dr. Mely Mayes AST [Catalytic activity/Vol] 18 U/L Normal 15-37 [facility] Comment on above: Performed By: #### L IPID, BNP, CMP #### [facility] [address] [place] [address] Dr. Mely Mayes Bilirubin [Mass/Vol] 0.6 mg/dL Normal 0.2-1.0 [facility] Comment on above: Performed By: #### L IPID, BNP, CMP #### [facility] [address] [place] [address] Dr. Mely Mayes Calcium [Mass/Vol] 10.3 mg/dL Critically high 8.5-10.[address] [facility] Comment on above: Performed By: #### L IPID, BNP, CMP #### [facility] [address] [place] [address] Dr. Mely Mayes Chloride [Moles/Vol] 101 mmol/L Normal 98-107 [facility] Comment on above: Performed By: #### L IPID, BNP, CMP #### [facility] [address] [place] [address] Dr. Mely Mayes CO2 [Moles/Vol] 27.5 mmol/L Normal 21.0-32.[address] [facility] Comment on above: Performed By: #### L IPID, BNP, CMP #### [facility] [address] [place] [address] Dr. Mely Mayes Creatinine [Mass/Vol] 1.17 mg/dL Normal 0.70-1.30 [facility] Comment on above: Performed By: #### L IPID, BNP, CMP #### [facility] [address] [address] [address] Mely Mayes EGFR-AF BRITISH >60 Normal >=60 [facility] Comment on above: Performed By: #### L IPID, BNP, CMP #### [facility] [address] [address] [address] Mely Mayes EGFR-NON AF BRITISH >60 Normal >=60 [facility] Comment on above: Performed By: #### L IPID, BNP, CMP #### [facility] [address] [address] [address] Mely Mayes Globulin (S) [Mass/Vol] 3.7 g/dL Normal [facility] Comment on above: Performed By: #### L IPID, BNP, CMP #### [facility] [address] [place] [address] Dr. Mely Mayes Glucose [Mass/Vol] 168 mg/dL Critically high 74-106 [facility] Comment on above: Performed By: #### L IPID, BNP, CMP #### [facility] [address] [place] [address] Dr. Mely Mayes Potassium [Moles/Vol] 4.2 mmol/L Normal 3.5-5.1 [facility] Comment on above: Performed By: #### L IPID, BNP, CMP #### [facility] [address] [place] [address] Dr. Mely Mayes Protein [Mass/Vol] 7.8 g/dL Normal 6.4-8.2 [facility] Comment on above: Performed By: #### L IPID, BNP, CMP #### [facility] [address] [place] [address] Dr. Mely Mayes Sodium [Moles/Vol] 138 mmol/L Normal 136-145 [facility] Comment on above: Performed By: #### L IPID, BNP, CMP #### [facility] [address] [address] [address] Mely Mayes Urea nitrogen [Mass/Vol] 10.0 mg/dL Normal 7.0-18.0 [facility] Comment on above: Performed By: #### L IPID, BNP, CMP #### [facility] [address] [place], [place] [address] Dr. Mely Mayes Urea nitrogen/Creatinin e [Mass ratio] 8.5 mg/mg Normal [facility] Comment on above: Performed By: #### L IPID, BNP, CMP #### [facility] [address] [place], [place] [address] Dr. Mely Mayes PROF CHEM 8 (BAS METB)on Anion gap [Moles/Vol] 14.7 mmol/L Normal [facility] Comment on above: Performed By: #### B MP ####[facility] [address] [place] [address]DrJonathan Mayes Calcium [Mass/Vol] 9.4 mg/dL Normal 8.5-10.1 [facility] Comment on above: Performed By: #### B MP ####[facility] [address] [place] [address]DrJonathan Mayes Chloride [Moles/Vol] 99 mmol/L Normal 98-107 [facility] Comment on above: Performed By: #### B MP ####[facility] [address] [place] [address]DrJonathan Mayes CO2 [Moles/Vol] 23.5 mmol/L Normal 21.0-32.[address] [facility] Comment on above: Performed By: #### B MP ####[facility] [address] [address]DrJonathan Mayes Creatinine [Mass/Vol] 1.53 mg/dL Critically high 0.70-1.30 [facility] Comment on above: Performed By: #### B MP ####[facility] [address] [place] [address]DrJonathan Mayes EGFR-AF BRITISH 55 mL/min/1.73m2 Critically low >=60 [facility] Comment on above: Performed By: #### B MP ####[facility] [address] [address]Dr. Mely Mayes EGFR-NON AF BRITISH 45 mL/min/1.73m2 Critically low >=60 [facility] Comment on above: Performed By: #### B MP ####[facility] [address] [place] [address]Dr. Mely Mayes Glucose [Mass/Vol] 258 mg/dL Critically high 74-106 T [place] [facility] Comment on above: Performed By: #### B MP ####[facility] [address] [address]Dr. Mely Mayes Potassium [Moles/Vol] 4.2 mmol/L Normal 3.5-5.1 [facility] Comment on above: Performed By: #### B MP ####[facility] [address] [address]Dr. Mely Mayes Sodium [Moles/Vol] 133 mmol/L Critically low 136-145 [facility] Comment on above: Performed By: #### B MP ####[facility] [address] [address]Dr. Mely Mayes Urea nitrogen [Mass/Vol] 11.0 mg/dL Normal 7.0-18.0 [facility] Comment on above: Performed By: #### B MP ####[facility] [address] [place], [place] [address]Dr. Mely Mayes Urea nitrogen/Creatinin e [Mass ratio] 7.2 mg/mg Normal [facility] Comment on above: Performed By: #### B MP ####[facility] [address] [place], [place] [address]Dr. Mely Mayes CREATININEon 08-24-2022 Creatinine [Mass/Vol] 1.02 mg/dL Normal 0.70-1.30 [facility] Comment on above: Performed By: #### C GRAEME #### [facility] [address] [place] [address] Dr. Mely Mayes EGFR-AF BRITISH >60 Normal >=60 [facility] Comment on above: Performed By: #### C GRAEME #### [facility] [address] [address] [address] Mely Mayes EGFR-NON AF BRITISH >60 Normal >=60 [facility] Comment on above: Performed By: #### C GRAEME #### [facility] [address] [address] [address] ABD/PELV W CONon 08-24-[address] ABD/PELV W CON EXAMINATION: CT ABD/ PELV W CON HISTORY: Abdominal colic ; lower [...] strangulation or obstruction. Electronically authenticated by: CHRIS VITAL Date: 2022-08-24 09:22 Normal [facility] GLYCOHEMOGLOBIN A1Con 2022 ADA RECOMMENDATION SEE BELOW Normal [facility] Comment on above: Result Comment: ADA RECOMMENDED LIMIT 4.0 - 6.0 ADA THERAPEUTIC TARGET < 7.0 ACTION SUGGESTED > 7.0 Performed By: #### D ATA1C #### [facility] [address] [address] [address] Mely Mayes Glucose [Mass/Vol] 163 mg/dL Normal [facility] Comment on above: Performed By: #### D ATA1C #### [facility] [address] [address] [address] Meyl Mayes HbA1c (Bld) [Mass fraction] 7.3 % Critically high 4.5-6.2 [facility] Comment on above: Performed By: #### D ATA1C #### [facility] [address] [place] [address] Dr. Mely Mayes COVID/FLU/RSV RT-PCRon 07-25 SARS-CoV-2 (COVID-19) RNA ESTEBAN+probe Ql (Unsp spec) Negative [facility] [employer] Other COVID/FLU/RSV RT-PCR Negative [facility] [employer] Other Quick Strepon 07-25-2022 S. pyogenes Org specific cx Ql (Throat) Negative [facility] [employer] Other Quick Strep [facility] [employer] Other PROF CHEM 8 (BAS METB)on Anion gap [Moles/Vol] 11.0 mmol/L Normal [facility] Comment on above: Performed By: #### B MP ####[facility] [address] [address]Dr. Mely Mayes Calcium [Mass/Vol] 9.2 mg/dL Normal 8.5-10.1 [facility] Comment on above: Performed By: #### B MP ####[facility] [address] [address]DrJonathan Mayes Chloride [Moles/Vol] 102 mmol/L Normal 98-107 [facility] Comment on above: Performed By: #### B MP ####[facility] [address] [place], [place] [address]Dr. Mely Mayes CO2 [Moles/Vol] 27.7 mmol/L Normal 21.0-32.0 [facility] Comment on above: Performed By: #### B MP ####[facility] [address] [place], [place] [address]Dr. Mely Mayes Creatinine [Mass/Vol] 1.00 mg/dL Normal 0.70-1.30 [facility] Comment on above: Performed By: #### B MP ####[facility] [address] [place], [place] [address]Dr. Mely Gerber EGFR-AF BRITISH >60 Normal >=[address] [facility] Comment on above: Performed By: #### B MP ####[facility] [address] [place], [place] [address]Dr. Leigh Anndayana Gerber EGFR-NON AF BRITISH >60 Normal >=60 [facility] Comment on above: Performed By: #### B MP ####[facility] [address] [place], [place] [address]Dr. Mely Gerber Glucose [Mass/Vol] 139 mg/dL Critically high 74-[address] [facility] Comment on above: Performed By: #### B MP ####[facility] [address] [place], [place] [address]Dr. Mely Gerber Potassium [Moles/Vol] 3.7 mmol/L Normal 3.5-5.1 [facility] Comment on above: Performed By: #### B MP ####[facility] [address] [place], [place] [address]Dr. Mely Gerber Sodium [Moles/Vol] 137 mmol/L Normal 136-145 [facility] Comment on above: Performed By: #### B MP ####[facility] [address] [place], [place] [address]Dr. Mely Mayes Urea nitrogen [Mass/Vol] 10.0 mg/dL Normal 7.0-18.0 [facility] Comment on above: Performed By: #### B MP ####[facility] [address] [place], [place] [address]DrJonathan Mayes Urea nitrogen/Creatinin e [Mass ratio] 10.0 mg/mg Normal [facility] Comment on above: Performed By: #### B MP ####[facility] [address] [address]Dr. Mely Mayes PROF CHEM 8 (BAS METB)on Anion gap [Moles/Vol] 10.3 mmol/L Normal [facility] Comment on above: Performed By: #### B MP #### [facility] [address] [address] [address] Mely Mayes Calcium [Mass/Vol] 9.1 mg/dL Normal 8.5-10.1 [facility] Comment on above: Performed By: #### B MP #### [facility] [address] [address] [address] Mely Mayes Chloride [Moles/Vol] 103 mmol/L Normal 98-107 [facility] Comment on above: Performed By: #### B MP #### [facility] [address] [address] [address] Mely Mayes CO2 [Moles/Vol] 25.4 mmol/L Normal 21.0-32.[address] [facility] Comment on above: Performed By: #### B MP #### [facility] [address] [place] [address] Dr. Mely Mayes Creatinine [Mass/Vol] 1.06 mg/dL Normal 0.70-1.30 [facility] Comment on above: Performed By: #### B MP #### [facility] [address] [address] [address] Mely Mayes EGFR-AF BRITISH >60 Normal >=[address] [facility] Comment on above: Performed By: #### B MP #### [facility] [address] [address] [address] Mely Mayes EGFR-NON AF BRITISH >60 Normal >=60 [facility] Comment on above: Performed By: #### B MP #### [facility] [address] [address] [address] Mely Mayes Glucose [Mass/Vol] 247 mg/dL Critically high 74-106 T [facility] Comment on above: Performed By: #### B MP #### [facility] [address] [address] [address] Mely Mayes Potassium [Moles/Vol] 3.7 mmol/L Normal 3.5-5.1 [facility] Comment on above: Performed By: #### B MP #### [facility] [address] [address] [address] Mely Mayes Sodium [Moles/Vol] 135 mmol/L Critically low 136-145 [facility] Comment on above: Performed By: #### B MP #### [facility] [address] [place] [address] Dr. Mely Mayes Urea nitrogen [Mass/Vol] 11.0 mg/dL Normal 7.0-18.0 [facility] Comment on above: Performed By: #### B MP #### [facility] [address] [place] [address] Dr. Mely Mayes Urea nitrogen/Creatinin e [Mass ratio] 10.4 mg/mg Normal [facility] Comment on above: Performed By: #### B MP #### [facility] [address] [place] [address] Dr. Mely Mayes PROF CHEM 8 (BAS METB)on Anion gap [Moles/Vol] 10.1 mmol/L Normal [facility] Comment on above: Performed By: #### B MP #### [facility] [address] [place] [address] Dr. Mely Mayes Calcium [Mass/Vol] 9.0 mg/dL Normal 8.5-10.1 [facility] Comment on above: Performed By: #### B MP #### [facility] [address] [place] [address] Dr. Mely Mayes Chloride [Moles/Vol] 100 mmol/L Normal 98-107 [facility] Comment on above: Performed By: #### B MP #### [facility] [address] [place] [address] Dr. Mely Mayes CO2 [Moles/Vol] 28.0 mmol/L Normal 21.0-32.0 [facility] Comment on above: Performed By: #### B MP #### [facility] [address] [place] [address] Dr. Mely Mayes Creatinine [Mass/Vol] 1.13 mg/dL Normal 0.70-1.30 [facility] Comment on above: Performed By: #### B MP #### [facility] [address] [address] [address] Mely Mayes EGFR-AF BRITISH >60 Normal >=60 [facility] Comment on above: Performed By: #### B MP #### [facility] [address] [place] [address] Dr. Mely Mayes EGFR-NON AF BRITISH >60 Normal >=60 [facility] Comment on above: Performed By: #### B MP #### [facility] [address] [place] [address] Dr. Mely Mayes Glucose [Mass/Vol] 285 mg/dL Critically high 74-106 T [facility] Comment on above: Performed By: #### B MP #### [facility] [address] [place] [address] Dr. Mely Mayes Potassium [Moles/Vol] 4.1 mmol/L Normal 3.5-5.1 [facility] Comment on above: Performed By: #### B MP #### [facility] [address] [place] [address] Dr. Mely Mayes Sodium [Moles/Vol] 134 mmol/L Critically low 136-145 Th [facility] Comment on above: Performed By: #### B MP #### [facility] [address] [place] [address] Dr. Mely Mayes Urea nitrogen [Mass/Vol] 9.0 mg/dL Normal 7.0-18.0 [facility] Comment on above: Performed By: #### B MP #### [facility] [address] [place] [address] Dr. Mely Mayes Urea nitrogen/Creatinin e [Mass ratio] 8.0 mg/mg Normal [facility] Comment on above: Performed By: #### B MP #### [facility] [address] [address] [address] Mely IVAN Quick Testingon 2021 Result Positive [employer] Other BASIC METABOLIC PANELon 12-27 Calcium [Mass/Vol] 9.0 mg/dL Normal 8.6-10.3 [facility] Comment on above: Order Comment: Check Chest Tube Position Performed By: #### 1 69, 69950 ####[facility] [place] [address], [place] Chloride [Moles/Vol] 103 mmol/L Normal 98-107 [facility] Comment on above: Order Comment: Check Chest Tube Position Performed By: #### 1 69, 57136 ####[facility] [place] [address], [place] CO2 [Moles/Vol] 24 mmol/L Normal 21-31 [facility] Comment on above: Order Comment: Check Chest Tube Position Performed By: #### 1 69, 03664 ####[facility] [place] [address], [place] Creatinine [Mass/Vol] 0.84 mg/dL Normal 0.70-1.30 [facility] Comment on above: Order Comment: Check Chest Tube Position Performed By: #### 1 69, 73330 ####[facility] [place] [address], [place] GFR/1.73 sq M.predicted among blacks MDRD (S/P/Bld) [Vol rate/Area] mL/min/{1.73_m2} Normal >60 [facility] Comment on above: Order Comment: Check Chest Tube Position Performed By: #### 1 69, 42149 ####[facility] [place] [address], [place] GFR/1.73 sq M.predicted among non-blacks MDRD (S/P/Bld) [Vol rate/Area] mL/min/{1.73_m2} Normal >60 [facility] Comment on above: Order Comment: Check Chest Tube Position Performed By: #### 1 69, 14237 ####[facility] Glucose [Mass/Vol] 137 mg/dL High 70-100 [facility] Comment on above: Order Comment: Check Chest Tube Position Performed By: #### 1 69, 92351 ####[facility] [facility] Potassium [Moles/Vol] 3.6 mmol/L Normal 3.5-5.1 [facility] Comment on above: Order Comment: Check Chest Tube Position Performed By: #### 1 69, ####[facility] [facility] Sodium [Moles/Vol] 138 mmol/L Normal 136-145 [facility] Comment on above: Order Comment: Check Chest Tube Position Performed By: #### 1 69, 56962 ####[facility] [facility].[address] Urea nitrogen [Mass/Vol] 13 mg/dL Normal 7-25 [facility] Comment on above: Order Comment: Check Chest Tube Position Performed By: #### 1 69, 73079 ####[facility] [facility].[address] CBC COMPLETE BLOOD COUNTon 0 - Erythrocyte distribution width (RBC) [Ratio] 13.0 % Normal 11.5-15.0 [facility] Comment on above: Order Comment: evalu ate Performed By: #### 5 0608 ####[facility] [facility] [address], [facility] Hematocrit (Bld) [Volume fraction] 33.3 % Low 39.0-50.0 [facility] Comment on above: Order Comment: evalu ate Performed By: #### 5 0608 ####[facility] Hemoglobin (Bld) [Mass/Vol] 11.8 g/dL Low 13.0-17.0 [facility] Comment on above: Order Comment: evalu ate Performed By: #### 5 0608 ####[facility] MCH (RBC) [Entitic mass] 30.3 pg Normal 27.0-33.0 [facility] Comment on above: Order Comment: evalu ate Performed By: #### 5 0608 ####[place] [address] [address] MCHC (RBC) [Mass/Vol] 35.4 g/dL High 32.0-35.0 [facility] Comment on above: Order Comment: evalu ate Performed By: #### 5 0608 ####[facility] MCV (RBC) [Entitic vol] 85.6 fL Normal 82.0-98.0 [facility] Comment on above: Order Comment: evalu ate Performed By: #### 5 0608 ####[place] [address] [address] Nucleated RBC/100 WBC (Bld) [Ratio] 0 % Normal 0-0 [facility] Comment on above: Order Comment: evalu ate Performed By: #### 5 0608 ####[facility] PLAT CNT 224 10*3/uL Normal 150-400 [facility] Comment on above: Order Comment: evalu ate Performed By: #### 5 0608 ####[facility] RBC (Bld) [#/Vol] 3.89 10*6/uL Low 4.20-5.70 [facility] Comment on above: Order Comment: evalu ate Performed By: #### 5 0608 ####[facility] [place] [address], [facility] WBC (Bld) [#/Vol] 9.88 10*3/uL Normal 4.00-10.60 [facility] Comment on above: Order Comment: evalu ate Performed By: #### 5 0608 ####[facility] [place] [address], [facility] MAGNESIUM BLOODon 01-07-2022 Magnesium [Mass/Vol] 2.3 mg/dL Normal 1.9-2.7 [facility] Comment on above: Order Comment: Check Chest Tube Position Performed By: #### 1 0070, 97110 ####[facility] [place] [address], [facility] POC GLUCOSE LABon 01-07-2022 Glucose [Mass/Vol] 143 mg/dL High 70-100 [facility] Comment on above: Performed By: #### 8 5499 ####[facility] [place] [address], [facility] Glucose [Mass/Vol] 182 mg/dL High 70-100 [facility] Comment on above: Performed By: #### 8 5499 ####[facility] [place] [address], [facility] PORTABLE CHEST 1 VIEWon 12-27 PORTABLE CHEST 1 VIEW [facility] Department of Radiology [address] [place] [address] Patient Name: OSWALD OCHOA : 1955 Sex: M Age: Race: White Pt. Location: [id number] Patient Status: I Ordered Date: 01/07/2022 5:00:00 [...] improved Electronically signed: YOLANDA GUTIERREZ. Transcribed by: [email or web address], User Resident: Electronically Signed by: YOLANDA GUTIERREZ @ 01/07/2022 09:39 AM Normal [facility] Comment on above: Order Comment: Evalu ate for Pneumothorax BASIC METABOLIC PANELon 12-27 Calcium [Mass/Vol] 9.0 mg/dL Normal 8.6-10.3 [facility] Comment on above: Order Comment: No: D o not add to previous draw Performed By: #### 1 69, 09091 ####[facility] [place] [address], [place] Chloride [Moles/Vol] 100 mmol/L Normal 98-107 [facility] Comment on above: Order Comment: No: D o not add to previous draw Performed By: #### 1 69, 58958 ####[facility] [place] [address], [place] CO2 [Moles/Vol] 26 mmol/L Normal 21-31 [facility] Comment on above: Order Comment: No: D o not add to previous draw Performed By: #### 1 69, 46813 ####[facility] [place] [address], [place] Creatinine [Mass/Vol] 0.75 mg/dL Normal 0.70-1.30 [facility] Comment on above: Order Comment: No: D o not add to previous draw Performed By: #### 1 69, 26477 ####[facility] [place] [address], [place] GFR/1.73 sq M.predicted among blacks MDRD (S/P/Bld) [Vol rate/Area] mL/min/{1.73_m2} Normal >60 [facility] Comment on above: Order Comment: No: D o not add to previous draw Performed By: #### 1 69, 19424 ####[facility] [place] [address], [place] GFR/1.73 sq M.predicted among non-blacks MDRD (S/P/Bld) [Vol rate/Area] mL/min/{1.73_m2} Normal >60 [facility] Comment on above: Order Comment: No: D o not add to previous draw Performed By: #### 1 69, 04878 ####[facility] [place] [address], [place] Glucose [Mass/Vol] 139 mg/dL High 70-100 [facility] Comment on above: Order Comment: No: D o not add to previous draw Performed By: #### 1 69, 96589 ####[facility] [place] [address], [facility] Potassium [Moles/Vol] 3.4 mmol/L Low 3.5-5.1 [facility] Comment on above: Order Comment: No: D o not add to previous draw Performed By: #### 1 69, 41651 ####[facility] [place] [address], [facility] Sodium [Moles/Vol] 136 mmol/L Normal 136-145 [facility] Comment on above: Order Comment: No: D o not add to previous draw Performed By: #### 1 69, 08671 ####[facility] [facility] Urea nitrogen [Mass/Vol] 12 mg/dL Normal 7-25 [facility] Comment on above: Order Comment: No: D o not add to previous draw Performed By: #### 1 69, 63994 ####[facility] [facility].[address] CBC COMPLETE BLOOD COUNTon 0 - Erythrocyte distribution width (RBC) [Ratio] 12.5 % Normal 11.5-15.0 [facility] Comment on above: Order Comment: No: D o not add to previous draw Performed By: #### 5 0608 ####[facility] [place] [address], [facility] Hematocrit (Bld) [Volume fraction] 30.8 % Low 39.0-50.0 [facility] Comment on above: Order Comment: No: D o not add to previous draw Performed By: #### 5 0608 ####[facility] [place] [address], [facility] Hemoglobin (Bld) [Mass/Vol] 10.9 g/dL Low 13.0-17.0 [facility] Comment on above: Order Comment: No: D o not add to previous draw Performed By: #### 5 0608 ####[facility] [place] [address], [facility] MCH (RBC) [Entitic mass] 30.2 pg Normal 27.0-33.0 [facility] Comment on above: Order Comment: No: D o not add to previous draw Performed By: #### 5 0608 ####[facility] [facility].[address] MCHC (RBC) [Mass/Vol] 35.4 g/dL High 32.0-35.0 [facility] Comment on above: Order Comment: No: D o not add to previous draw Performed By: #### 5 0608 ####[facility] [facility].[address] MCV (RBC) [Entitic vol] 85.3 fL Normal 82.0-98.0 [facility] Comment on above: Order Comment: No: D o not add to previous draw Performed By: #### 5 0608 ####[facility] [facility].[address] Nucleated RBC/100 WBC (Bld) [Ratio] 0 % Normal 0-0 [facility] Comment on above: Order Comment: No: D o not add to previous draw Performed By: #### 5 0608 ####[facility] [place] [address], [facility] PLAT CNT 169 10*3/uL Normal 150-400 [facility] Comment on above: Order Comment: No: D o not add to previous draw Performed By: #### 5 0608 ####[facility] [place] [address], [facility] RBC (Bld) [#/Vol] 3.61 10*6/uL Low 4.20-5.70 [facility] Comment on above: Order Comment: No: D o not add to previous draw Performed By: #### 5 0608 ####[facility] [place] [address], [place] WBC (Bld) [#/Vol] 11.89 10*3/uL High 4.00-10.60 [facility] Comment on above: Order Comment: No: D o not add to previous draw Performed By: #### 5 0608 ####[facility] [place] [address], [place] MAGNESIUM BLOODon 01-06-2022 Magnesium [Mass/Vol] 1.9 mg/dL Normal 1.9-2.7 [facility] Comment on above: Order Comment: No: D o not add to previous draw Performed By: #### 1 0070, 51905 ####[facility] [place] [address], [place] POC GLUCOSE LABon 01-06-2022 Glucose [Mass/Vol] 143 mg/dL High 70-100 [facility] Comment on above: Performed By: #### 8 5499 ####[facility] [place] [address], [place] Glucose [Mass/Vol] 159 mg/dL High 70-100 [facility] Comment on above: Performed By: #### 8 5499 ####[facility] [place] [address], [place] Glucose [Mass/Vol] 215 mg/dL High 70-100 [facility] Comment on above: Performed By: #### 8 5499 ####[facility] [place] [address], [place] Glucose [Mass/Vol] 153 mg/dL High 70-100 [facility] Comment on above: Performed By: #### 8 5499 ####[facility] PORTABLE CHEST 1 VIEWon 12-27 PORTABLE CHEST 1 VIEW [facility] Department of Radiology [address] [place] [id number] Patient Name: OSWALD OCHOA : 1955 Sex: M Age: Race: White Pt. Location: [place] [address] Patient Status: I Ordered Date: 01/06/2022 5:00:00 [...] apical pneumothorax and lower cervical soft tissue emphysema/pneumomediastinum. 2. Ongoing small effusions and atelectasis. Electronically signed: YOLANDA GUTIERREZ. Transcribed by: [email or web address], User Resident: Electronically Signed by: YOLANDA GUTIERREZ @ 01/06/2022 09:50 AM Normal [facility] Comment on above: Order Comment: Evalu ate for Atelectasis BASIC METABOLIC PANELon 06- Calcium [Mass/Vol] 9.0 mg/dL Normal 8.6-10.3 [facility] Comment on above: Order Comment: Check Chest Tube Position Performed By: #### 0 0071, 06307, 13937 ####[facility] [place] [address], [facility] Chloride [Moles/Vol] 101 mmol/L Normal 98-107 [facility] Comment on above: Order Comment: Check Chest Tube Position Performed By: #### 0 0071, 41134, 80552 ####[facility] [place] [address], [place] CO2 [Moles/Vol] 28 mmol/L Normal 21-31 [facility] Comment on above: Order Comment: Check Chest Tube Position Performed By: #### 0 0071, 58942, 30021 ####[facility] [place] [address], [place] Creatinine [Mass/Vol] 0.79 mg/dL Normal 0.70-1.30 [facility] Comment on above: Order Comment: Check Chest Tube Position Performed By: #### 0 0071, 62463, 64504 ####[facility] [place] [address], [place] GFR/1.73 sq M.predicted among blacks MDRD (S/P/Bld) [Vol rate/Area] mL/min/{1.73_m2} Normal >60 [facility] Comment on above: Order Comment: Check Chest Tube Position Performed By: #### 0 0071, 21838, 21923 ####[facility] GFR/1.73 sq M.predicted among non-blacks MDRD (S/P/Bld) [Vol rate/Area] mL/min/{1.73_m2} Normal >60 [facility] Comment on above: Order Comment: Check Chest Tube Position Performed By: #### 0 0071, 55503, 68842 ####[facility] Potassium [Moles/Vol] 3.9 mmol/L Normal 3.5-5.1 [facility] Comment on above: Order Comment: Check Chest Tube Position Performed By: #### 0 0071, 76988, 79672 ####[facility] Sodium [Moles/Vol] 135 mmol/L Low 136-145 [facility] Comment on above: Order Comment: Check Chest Tube Position Performed By: #### 0 0071, 49090, 64121 ####[facility] [facility] Urea nitrogen [Mass/Vol] 9 mg/dL Normal 7-25 [facility] Comment on above: Order Comment: Check Chest Tube Position Performed By: #### 0 0071, 70378, 56090 ####[facility] [facility] CBC COMPLETE BLOOD COUNTon 0 01-05-2022 Erythrocyte distribution width (RBC) [Ratio] 13.1 % Normal 11.5-15.0 [facility] Comment on above: Order Comment: No: D o not add to previous draw Performed By: #### 5 0608 ####[facility] [facility] Hematocrit (Bld) [Volume fraction] 30.6 % Low 39.0-50.0 [facility] Comment on above: Order Comment: No: D o not add to previous draw Performed By: #### 5 0608 ####[facility] Hemoglobin (Bld) [Mass/Vol] 10.6 g/dL Low 13.0-17.0 [facility] Comment on above: Order Comment: No: D o not add to previous draw Performed By: #### 5 0608 ####[facility] [place] [address] MCH (RBC) [Entitic mass] 30.3 pg Normal 27.0-33.0 [facility] Comment on above: Order Comment: No: D o not add to previous draw Performed By: #### 5 0608 ####[address] MCHC (RBC) [Mass/Vol] 34.6 g/dL Normal 32.0-35.0 [facility] Comment on above: Order Comment: No: D o not add to previous draw Performed By: #### 5 0608 ####[address] MCV (RBC) [Entitic vol] 87.4 fL Normal 82.0-98.0 [facility] Comment on above: Order Comment: No: D o not add to previous draw Performed By: #### 5 0608 ####[address] Nucleated RBC/100 WBC (Bld) [Ratio] 0 % Normal 0-0 [facility] Comment on above: Order Comment: No: D o not add to previous draw Performed By: #### 5 0608 ####[address] PLAT CNT 155 10*3/uL Normal 150-400 [facility] Comment on above: Order Comment: No: D o not add to previous draw Performed By: #### 5 0608 ####[facility] [place] [address], [facility] RBC (Bld) [#/Vol] 3.50 10*6/uL Low 4.20-5.70 [facility] Comment on above: Order Comment: No: D o not add to previous draw Performed By: #### 5 0608 ####[facility] [place] [address], [facility] WBC (Bld) [#/Vol] 13.63 10*3/uL High 4.00-10.60 [facility] Comment on above: Order Comment: No: D o not add to previous draw Performed By: #### 5 0608 ####[facility] [facility] MAGNESIUM BLOODon 01-05-2022 Magnesium [Mass/Vol] 2.0 mg/dL Normal 1.9-2.7 [facility] Comment on above: Order Comment: Check Chest Tube Position Performed By: #### 0 0071, 67316, 42336 ####[facility] [place] [address], [facility] PHOSPHORUS BLOODon 2 Phosphate [Mass/Vol] 2.8 mg/dL Normal 2.5-5.0 [facility] Comment on above: Performed By: #### 0 0071, 93258, 28513 ####[facility] [place] [address], [facility] POC GLUCOSE LABon 01-05-2022 Glucose [Mass/Vol] 136 mg/dL High 70-100 [facility] Comment on above: Performed By: #### 8 5499 ####[facility] [place] [address], [facility] Glucose [Mass/Vol] 157 mg/dL High 70-100 [facility] Comment on above: Performed By: #### 8 5499 ####[facility] [place] [address], [facility] Glucose [Mass/Vol] 147 mg/dL High 70-100 [facility] Comment on above: Performed By: #### 8 5499 ####[facility] [place] [address], [facility] Order Comment: Check Chest Tube Position Performed By: #### 0 0071, 64802, 22083 ####[facility] [place] [address], [facility] Glucose [Mass/Vol] 151 mg/dL High 70-100 [facility] Comment on above: Performed By: #### 8 5499 ####[place] [address] [place] [address], [facility] PORTABLE CHEST 1 VIEWon 12-27 PORTABLE CHEST 1 VIEW [facility] Department of Radiology [address] [place] [address] Patient Name: OSWALD OCHOA : 1955 Sex: M Age: Race: White Pt. Location: [place] [address] Patient Status: I Ordered Date: 01/05/2022 12:20:00 [...] subcutaneous emphysema. 2. Otherwise stable exam. Dr. Ramon discussed findings of possible small left pneumothorax with Jeana Iniguez, the patient's nurse, on 01/05/2022 at 1712 hours. Electronically signed: Nic Ramon. Transcribed by: [email or web address], User Resident: Electronically Signed by: NIC RAMON @ 01/05/2022 05:15 PM Normal [facility] Comment on above: Order Comment: evalu ate PORTABLE CHEST 1 VIEW [facility] Department of Radiology [address] [place] [id number] Patient Name: OSWALD OCHOA : 1955 Sex: M Age: Race: White Pt. Location: [place] [address] Patient Status: I Ordered Date: 01/05/2022 5:00:00 [...] No interval change appreciated. Electronically signed: Michelle Kc. Transcribed by: [email or web address], User Resident: Electronically Signed by: MICHELLE KC @ 01/05/2022 08:23 AM Normal [facility] Comment on above: Order Comment: evalu ate for Atelectasis APTTon 01-04-2022 aPTT Coag (Bld) [Time] 31.0 s Normal 25.0-35.0 [facility] Comment on above: Order Comment: evalu [...] THIS PURPOSE. Performed By: #### 5 6101, 36032 ####[facility] ARTERIAL BLOOD GAS WITH ICAo n 01-04-2022 BASE EXCESS -5 mmol/L Low -2-3 [facility] Comment on above: Order Comment: Check Chest Tube Position, ON ARRIVAL TO CVU Performed By: #### 8 4511 ####[facility] [place] [address], [facility] [employer] VENTILATOR Normal [facility] Comment on above: Order Comment: Check Chest Tube Position, ON ARRIVAL TO CVU Performed By: #### 8 4511 ####[facility] [place] [address], [facility] FIO2 40 % Normal [facility] Comment on above: Order Comment: Check Chest Tube Position, ON ARRIVAL TO CVU Performed By: #### 8 4511 ####[facility] [place] [address], [facility] HCO3 (Bld) [Moles/Vol] 22 mmol/L Normal 21-28 [facility] Comment on above: Order Comment: Check Chest Tube Position, ON ARRIVAL TO CVU Performed By: #### 8 4511 ####[facility] [place] [address], [facility] IONIZED CALCIUM ERROR Normal 1.13-1.32 [facility] Comment on above: Order Comment: Check Chest Tube Position, ON ARRIVAL TO CVU Performed By: #### 8 4511 ####[facility] [place] [address], [place] MIN VOLUME 11.7 Normal [facility] Comment on above: Order Comment: Check Chest Tube Position, ON ARRIVAL TO CVU Performed By: #### 8 4511 ####[facility] [place] [address], [place] MODALITY SPONT Normal [facility] Comment on above: Order Comment: Check Chest Tube Position, ON ARRIVAL TO CVU Performed By: #### 8 4511 ####[facility] [place] [address], [place] Oxygen (Bld) [Partial pressure] 116 mm[Hg] Critically high 83-108 [facility] Comment on above: Order Comment: Check Chest Tube Position, ON ARRIVAL TO CVU Performed By: #### 8 4511 ####[facility] [place] [address], [facility] Oxygen saturation in Blood 96.7 % Normal 94.0-97.0 [facility] Comment on above: Order Comment: Check Chest Tube Position, ON ARRIVAL TO CVU Performed By: #### 8 4511 ####[facility] [place] [address], [place] PCO2 45 mmHg Normal 35-45 [facility] Comment on above: Order Comment: Check Chest Tube Position, ON ARRIVAL TO CVU Performed By: #### 8 4511 ####[facility] [place] [address], [facility] PEEP 8.0 CMH20 Normal [facility] Comment on above: Order Comment: Check Chest Tube Position, ON ARRIVAL TO CVU Performed By: #### 8 4511 ####[facility] [place] [address], [place] pH (Bld) 7.29 [pH] Low 7.35-7.45 [facility] Comment on above: Order Comment: Check Chest Tube Position, ON ARRIVAL TO CVU Performed By: #### 8 4511 ####[facility] [place] [address], [facility] PRESSURE SUPPORT 5 Normal [facility] Comment on above: Order Comment: Check Chest Tube Position, ON ARRIVAL TO CVU Performed By: #### 8 4511 ####[facility] [place] [address], [place] BASIC METABOLIC PANELon 06-0 -2021 Calcium [Mass/Vol] 8.5 mg/dL Low 8.6-10.3 [facility] Comment on above: Order Comment: post thoracotomy Performed By: #### 4 1000, 80337, 95135 ####[facility] [place] [address], [place] Chloride [Moles/Vol] 107 mmol/L Normal 98-107 [facility] Comment on above: Order Comment: post thoracotomy Performed By: #### 4 1000, 08542, 54881 ####[facility] [place] [address], [place] CO2 [Moles/Vol] 25 mmol/L Normal 21-31 [facility] Comment on above: Order Comment: post thoracotomy Performed By: #### 4 1000, 56527, 59189 ####[facility] [place] [address], [facility] Creatinine [Mass/Vol] 0.96 mg/dL Normal 0.70-1.30 [facility] Comment on above: Order Comment: post thoracotomy Performed By: #### 4 1000, 63082, 37918 ####[facility] [place] [address], [facility] GFR/1.73 sq M.predicted among blacks MDRD (S/P/Bld) [Vol rate/Area] mL/min/{1.73_m2} Normal >60 [facility] Comment on above: Order Comment: post thoracotomy Performed By: #### 4 1000, 22954, 64335 ####[facility] [place] [address], [facility] GFR/1.73 sq M.predicted among non-blacks MDRD (S/P/Bld) [Vol rate/Area] mL/min/{1.73_m2} Normal >60 [facility] Comment on above: Order Comment: post thoracotomy Performed By: #### 4 1000, 65150, 86997 ####[facility] [place] [address], [place] Glucose [Mass/Vol] 172 mg/dL High 70-100 [facility] Comment on above: Order Comment: post thoracotomy Performed By: #### 4 1000, 39233, 07105 ####[facility] Potassium [Moles/Vol] 4.1 mmol/L Normal 3.5-5.1 [facility] Comment on above: Order Comment: post thoracotomy Performed By: #### 4 1000, 04657, 34859 ####[facility] [place] [address], [facility] Sodium [Moles/Vol] 139 mmol/L Normal 136-145 [facility] Comment on above: Order Comment: post thoracotomy Performed By: #### 4 1000, 44168, 53331 ####[facility] [place] [address], [facility] Urea nitrogen [Mass/Vol] 10 mg/dL Normal 7-25 [facility] Comment on above: Order Comment: post thoracotomy Performed By: #### 4 1000, 22996, 89516 ####[facility] [facility].[address] CBC COMPLETE BLOOD COUNTon 0 01-04-2022 Erythrocyte distribution width (RBC) [Ratio] 12.7 % Normal 11.5-15.0 [facility] Comment on above: Order Comment: No: D o not add to previous drawNurse draw per rn clare Performed By: #### 5 0608 ####[facility] [facility].[address] Hematocrit (Bld) [Volume fraction] 30.5 % Low 39.0-50.0 [facility] Comment on above: Order Comment: No: D o not add to previous drawNurse draw per rn clare Performed By: #### 5 0608 ####[facility] [facility].[address] Hemoglobin (Bld) [Mass/Vol] 10.6 g/dL Low 13.0-17.0 [facility] Comment on above: Order Comment: No: D o not add to previous drawNurse draw per rn clare Performed By: #### 5 0608 ####[facility] [facility].[address] MCH (RBC) [Entitic mass] 30.1 pg Normal 27.0-33.0 [facility] Comment on above: Order Comment: No: D o not add to previous drawNurse draw per rn clare Performed By: #### 5 0608 ####[facility] [facility].[address] MCHC (RBC) [Mass/Vol] 34.8 g/dL Normal 32.0-35.0 [facility] Comment on above: Order Comment: No: D o not add to previous drawNurse draw per rn clare Performed By: #### 5 0608 ####[facility] MCV (RBC) [Entitic vol] 86.6 fL Normal 82.0-98.0 [facility] Comment on above: Order Comment: No: D o not add to previous drawNurse draw per rn clare Performed By: #### 5 0608 ####[facility] [facility].[address] Nucleated RBC/100 WBC (Bld) [Ratio] 0 % Normal 0-0 [facility] Comment on above: Order Comment: No: D o not add to previous drawNurse draw per rn clare Performed By: #### 5 0608 ####[facility] [facility].[address] PLAT CNT 149 10*3/uL Low 150-400 [facility] Comment on above: Order Comment: No: D o not add to previous drawNurse draw per rn clare Performed By: #### 5 0608 ####[facility] RBC (Bld) [#/Vol] 3.52 10*6/uL Low 4.20-5.70 [facility] Comment on above: Order Comment: No: D o not add to previous drawNurse draw per rn clare Performed By: #### 5 0608 ####[facility] [place] [address], [facility] WBC (Bld) [#/Vol] 11.45 10*3/uL High 4.00-10.60 [facility] Comment on above: Order Comment: No: D o not add to previous drawNurse draw per rn clare Performed By: #### 5 0608 ####[facility] [place] [address], [facility] LACTATE BLOODon 01-04-2022 Lactate [Moles/Vol] 2.0 mmol/L Normal .5-2.2 [facility] Comment on above: Order Comment: Check Chest Tube Position Performed By: #### 1 0054 ####[facility] [place] [address], [facility] MAGNESIUM BLOODon 01-04-2022 Magnesium [Mass/Vol] 2.4 mg/dL Normal 1.9-2.7 [facility] Comment on above: Order Comment: post thoracotomy Performed By: #### 4 1000, 59898, 11812 ####[facility] [place] [address], [facility] MIXED VENOUS BLOOD GAS W/LEAF SIZE PICKER Xon 01-04-2022 BASE EXCESS -1 mmol/L Normal [facility] Comment on above: Performed By: #### 7 0072 ####[facility] [place] [address], [facility] COHB 1 % Normal [facility] Comment on above: Performed By: #### 7 0072 ####[facility] [place] [address], [facility] [employer]IV[employer] NASAL CANNULA Normal [facility] Comment on above: Performed By: #### 7 0072 ####[facility] HCO3 (Bld) [Moles/Vol] 26 mmol/L Normal [facility] Comment on above: Performed By: #### 7 71 ####[facility] LPM 3 Normal [facility] Comment on above: Performed By: #### 7 71 ####[facility] METHB 0 % Normal [facility] Comment on above: Performed By: #### 7 71 ####[facility] Oxygen (Bld) [Partial pressure] 41 mm[Hg] Normal 35-45 [facility] Comment on above: Performed By: #### 7 71 ####[facility] Oxygen saturation in Blood 67.6 % Normal 65.0-75.0 [facility] Comment on above: Performed By: #### 7 71 ####[facility] PCO2 51 mmHg High 40-50 [facility] Comment on above: Performed By: #### 7 71 ####[facility] pH (Bld) 7.32 [pH] Normal 7.31-7.41 [facility] Comment on above: Performed By: #### 7 71 ####[facility] THB 11.0 g/dL Normal [facility] Comment on above: Performed By: #### 7 71 ####[facility] Operative Reporton 06-09-202 2 Operative Report MR#: [id number] [facility] Pt. Name: Oswald Ochoa Room #: HIRO [id number] Discharge Date: Birthdate: 1955 OPERATIVE REPORT DATE OF SURGERY: 01/03/2022 SURGEON: Jose R Guzman MD PREOPERATIVE DIAGNOSIS: Three-vessel coronary artery disease. POSTOPERATIVE DIAGNOSIS: Three-vessel coronary artery disease. OPERATION: 1. Coronary artery bypass grafting x5, IVAN to LAD, saphenous vein graft to obtuse marginal 2 and obtuse marginal 3 branches, saphenous vein graft to diagonal branch, saphenous vein graft to right coronary artery. 2. Endoscopic vein harvesting of the left greater saphenous vein. 3. Interpretation of transesophageal echocardiogram. CONTRACTING MANAGER: Pedro Luis Gill. ANESTHESIA: General with endotracheal [...] graft. The vein graft anastomosed in a zalp-ee-rlyr fashion to the obtuse marginal 2 branch [...] bit of difficulty distally, but passed proximally. IVAN was anastomosed in end-to-side fashion using 8-0 [...] flows were all measuring 50-60 mL/minute. The IVAN to LAD anastomosis had pulsatility index of [...] w (more content not included)... Normal [facility] PHOSPHORUS BLOODon 2 Phosphate [Mass/Vol] 2.9 mg/dL Normal 2.5-5.0 [facility] Comment on above: Order Comment: post thoracotomy Performed By: #### 4 1000, 79244, 07489 ####[facility] [place] [address], [place] POC GLUCOSE LABon 01-04-2022 Glucose [Mass/Vol] 130 mg/dL High 70-100 [facility] Comment on above: Performed By: #### 8 5499 ####[facility] [place] [address], [place] Glucose [Mass/Vol] 118 mg/dL High 70-100 [facility] Comment on above: Performed By: #### 8 5499 ####[facility] [place] [address], [place] Glucose [Mass/Vol] 101 mg/dL High 70-100 [facility] Comment on above: Performed By: #### 8 5499 ####[facility] [place] [address], [place] Glucose [Mass/Vol] 96 mg/dL Normal 70-100 [facility] Comment on above: Performed By: #### 8 5499 ####[facility] [place] [address], [place] Glucose [Mass/Vol] 76 mg/dL Normal 70-100 [facility] Comment on above: Performed By: #### 8 5499 ####[facility] [place] [address], [place] Glucose [Mass/Vol] 93 mg/dL Normal 70-100 [facility] Comment on above: Performed By: #### 8 5499 ####[facility] [place] [address], [place] Glucose [Mass/Vol] 130 mg/dL High 70-100 [facility] Comment on above: Performed By: #### 8 5499 ####[facility] [place] [address], [place] Glucose [Mass/Vol] 130 mg/dL High 70-100 [facility] Comment on above: Performed By: #### 8 5499 ####[facility] [place] [address], [place] Glucose [Mass/Vol] 147 mg/dL High 70-100 [facility] Comment on above: Performed By: #### 8 5499 ####[facility] [place] [address], [place] Glucose [Mass/Vol] 175 mg/dL High 70-100 [facility] Comment on above: Performed By: #### 8 5499 ####[facility] [place] [address], [place] Glucose [Mass/Vol] 190 mg/dL High 70-100 [facility] Comment on above: Performed By: #### 8 5499 ####[facility] [place] [address], [place] Glucose [Mass/Vol] 207 mg/dL High 70-100 [facility] Comment on above: Performed By: #### 8 5499 ####[facility] [place] [address], [place] Glucose [Mass/Vol] 200 mg/dL High 70-100 [facility] Comment on above: Performed By: #### 8 5499 ####[facility] [place] [address], [place] PORTABLE CHEST 1 VIEWon 06-0 PORTABLE CHEST 1 VIEW [facility] Department of Radiology [address] [place] [id number] Patient Name: OSWALD OCHOA : 1955 Sex: M Age: Race: White Pt. Location: [id number] Patient Status: I Ordered Date: 01/04/2022 1:00:00 [...] January 04, 2022. 0643 hours. FINDINGS: The George-Perry catheter has been withdrawn leaving a right jugular vein sheath with its tip in the SVC. Sternotomy wires and cardiomegaly remain. Pleural effusion suggested in the left costophrenic angle linear atelectasis over both hemidiaphragms. Perihilar congestive changes persist. No pneumothorax. IMPRESSION: No pneumothorax. No interval change in lung cunningham. Electronically signed: Michelle Kc. Transcribed by: [email or web address], User Resident: Electronically Signed by: MICHELLE KC @ 01/04/2022 01:25 PM Normal [facility] Comment on above: Order Comment: Pneum othorax PORTABLE CHEST 1 VIEW [facility] Department of Radiology [address] [place] [address] Patient Name: OSWALD OCHOA : 1955 Sex: M Age: Race: White Pt. Location: [place] [address] Patient Status: I Ordered Date: 01/04/2022 7:00:00 [...] tube and NG tube have been removed. George-Perry catheter remains with its tip in the right main pulmonary artery. Sternotomy wires with mild cardiomegaly remain. Haziness in the left costophrenic angle suggests effusion and lower lobe consolidation. No pneumothorax identified. IMPRESSION: Left pleural effusion and lower lobe consolidation. Electronically signed: Michelle Kc. Transcribed by: [email or web address], User Resident: Electronically Signed by: MICHELLE KC @ 01/04/2022 08:12 AM Normal [facility] Comment on above: Order Comment: Check Chest Tube Position PROTHROMBIN TIMEon INR Coag (PPP) [Relative time] 1.24 {INR} High 0.91-1.16 [facility] Comment on above: Order Comment: evalu ate Result Comment: ACCC P RECOMMENDED INR FOR WARFARIN THERAPY ----- ------- CONDITION INR PROPHYLAXIS OF VENOUS THROMBOSIS 2-3 (HIGH-RISK SURGERY) TREATMENT OF VENOUS THROMBOSIS 2-3 TREATMENT OF PULMONARY EMBOLISM 2-3 PREVENTION OF SYSTEMIC EMBOLISM: 2-3 ACUTE MYOCARDIAL INFARCTION TISSUE HEART VALVES VALVULAR HEART DISEASE ATRIAL FIBRILLATION RECURRENT SYSTEMIC EMBOLISM MECHANICAL HEART VALVE 2.5-3.5 FROM: ORAL ANTICOAGULANTS. MECHANISM OF ACTION, CLINICAL EFFECTIVENESS, AND OPTIMAL THERAPEUTIC RANGE. CHEST 1995;108:231S-246S. Performed By: #### 5 6101, 21566 ####[facility] [facility].[address] PT Coag (PPP) [Time] 15.5 s High 12.3-14.8 [facility] Comment on above: Order Comment: evalu ate Result Comment: ALL RESULTS MUST BE INTERPRETED WITH RESPECT TO BLOOD DRAWING ARTIFACT OR DILUTION ERROR OF ANTICOAGULANT AT THE TIME OF SAMPLING. Performed By: #### 5 6101, 43973 ####[facility] *MRSA/MSSA DNA NASALon 01-03 *MRSA/MSSA DNA NASAL Clinical Report: (D) Specimen: NASAL SWAB Collected: 01/02/2022 22:13 Status: Final Last Updated: 01/03/2022 10:59 MSSA DNA (Final) Negative MRSA DNA (Final) Negative Normal [facility] Comment on above: Performed By: #### 3 1595 ####[facility] [place] [address], [place] ACTIVATED CLOTTING TIMEon ACTIVATED CLOTTING TIME 0 sec Low 82-152 [facility] Comment on above: Performed By: #### 3 0739 ####[facility] [place] [address], [place] ACTIVATED CLOTTING TIME 116 sec Normal 82-152 [facility] Comment on above: Performed By: #### 3 0739 ####[facility] [place] [address], [place] ACTIVATED CLOTTING TIME 426 sec High 82-152 [facility] Comment on above: Performed By: #### 3 0739 ####[facility] [place] [address], [place] ACTIVATED CLOTTING TIME 512 sec High 82-152 [facility] Comment on above: Performed By: #### 3 0739 ####[facility] [place] [address], [place] ACTIVATED CLOTTING TIME 622 sec High 82-152 [facility] Comment on above: Performed By: #### 3 0739 ####[facility] [place] [address], [place] ACTIVATED CLOTTING TIME 722 sec High 82-152 [facility] Comment on above: Performed By: #### 3 0739 ####[facility] [place] [address], [place] ACTIVATED CLOTTING TIME 855 sec High 82-152 [facility] Comment on above: Performed By: #### 3 0739 ####[facility] [place] [address], [place] ACTIVATED CLOTTING TIME 122 sec Normal 82-152 [facility] Comment on above: Performed By: #### 3 0739 ####[facility] APTTon 01-03-2022 aPTT Coag (Bld) [Time] 31.0 s Normal 25.0-35.0 [facility] Comment on above: Order Comment: No: [...] THIS PURPOSE. Performed By: #### 5 7307, [address] ####[place] [address] [facility].[address] aPTT Coag (Bld) [Time] 28.9 s Normal 25.0-35.0 [facility] Comment on above: Result Comment: ALL [...] THIS PURPOSE. Performed By: #### 5 7307, 08965, 02981 ####[facility] [place] [address], [facility] ARTERIAL BLOOD GAS WITH ICAo n 01-03-2022 BASE EXCESS -4 mmol/L Low -2-3 [facility] Comment on above: Order Comment: Check Chest Tube Position, ON ARRIVAL TO CVU Performed By: #### 8 4511 ####[place] [address] [facility].[address] DELIVERY SYSTEMS VENTILATOR Normal [facility] Comment on above: Order Comment: Check Chest Tube Position, ON ARRIVAL TO CVU Performed By: #### 8 4511 ####[facility] [place] [address], [facility] FIO2 40 % Normal [facility] Comment on above: Order Comment: Check Chest Tube Position, ON ARRIVAL TO CVU Performed By: #### 8 4511 ####[facility] [place] [address], [facility] HCO3 (Bld) [Moles/Vol] 22 mmol/L Normal 21-28 [facility] Comment on above: Order Comment: Check Chest Tube Position, ON ARRIVAL TO CVU Performed By: #### 8 4511 ####[facility] [place] [address], [facility] IONIZED CALCIUM 1.20 mmol/L Normal 1.13-1.32 [facility] Comment on above: Order Comment: Check Chest Tube Position, ON ARRIVAL TO CVU Performed By: #### 8 4511 ####[facility] [place] [address], [facility] MIN VOLUME 12.1 Normal [facility] Comment on above: Order Comment: Check Chest Tube Position, ON ARRIVAL TO CVU Performed By: #### 8 4511 ####[facility] [place] [address], [facility] MODALITY SIMV Normal [facility] Comment on above: Order Comment: Check Chest Tube Position, ON ARRIVAL TO CVU Performed By: #### 8 4511 ####[facility] [place] [address], [facility] Oxygen (Bld) [Partial pressure] 104 mm[Hg] Normal 83-108 [facility] Comment on above: Order Comment: Check Chest Tube Position, ON ARRIVAL TO CVU Performed By: #### 8 4511 ####[facility] [place] [address], [facility] Oxygen saturation in Blood 96.5 % Normal 94.0-97.0 [facility] Comment on above: Order Comment: Check Chest Tube Position, ON ARRIVAL TO CVU Performed By: #### 8 4511 ####[facility] [place] [address], [facility] PCO2 41 mmHg Normal 35-45 [facility] Comment on above: Order Comment: Check Chest Tube Position, ON ARRIVAL TO CVU Performed By: #### 8 4511 ####[facility] [place] [address], [place] PEEP 8.0 CMH20 Normal [facility] Comment on above: Order Comment: Check Chest Tube Position, ON ARRIVAL TO CVU Performed By: #### 8 4511 ####[facility] [place] [address], [place] pH (Bld) 7.33 [pH] Low 7.35-7.45 [facility] Comment on above: Order Comment: Check Chest Tube Position, ON ARRIVAL TO CVU Performed By: #### 8 4511 ####[facility] [place] [address], [facility] PRESSURE SUPPORT 10 Normal [facility] Comment on above: Order Comment: Check Chest Tube Position, ON ARRIVAL TO CVU Performed By: #### 8 4511 ####[facility] [place] [address], [place] Respiratory rate 10 /min Normal [facility] Comment on above: Order Comment: Check Chest Tube Position, ON ARRIVAL TO CVU Performed By: #### 8 4511 ####[facility] [place] [address], [place] TIDAL VOLUME (VT) CC 600 Normal [facility] Comment on above: Order Comment: Check Chest Tube Position, ON ARRIVAL TO CVU Performed By: #### 8 4511 ####[facility] [place] [address], [place] BASE EXCESS -4 mmol/L Low -2-3 [facility] Comment on above: Performed By: #### 8 4511 ####[facility] [place] [address], [facility] DELIVERY SYSTEMS mv Normal [facility] Comment on above: Performed By: #### 8 4511 ####[facility] [place] [address], [place] FIO2 40 % Normal [facility] Comment on above: Performed By: #### 8 4511 ####[facility] [place] [address], [place] HCO3 (Bld) [Moles/Vol] 23 mmol/L Normal 21-28 [facility] Comment on above: Performed By: #### 8 4511 ####[facility] [place] [address], [place] IONIZED CALCIUM 1.20 mmol/L Normal 1.13-1.32 [facility] Comment on above: Performed By: #### 8 4511 ####[facility] [place] [address], [place] MIN VOLUME 8.2 Normal [facility] Comment on above: Performed By: #### 8 4511 ####[facility] [place] [address], [place] MODALITY SIMV Normal [facility] Comment on above: Performed By: #### 8 4511 ####[facility] [place] [address], [place] Oxygen (Bld) [Partial pressure] 94 mm[Hg] Normal 83-108 [facility] Comment on above: Performed By: #### 8 4511 ####[facility] [place] [address], [place] Oxygen saturation in Blood 99 % Normal 94-100 [facility] Comment on above: Performed By: #### 8 4511 ####[facility] Oxygen saturation in Blood 96.3 % Normal 94.0-97.0 [facility] Comment on above: Performed By: #### 8 4511 ####[facility] [address], [facility] PCO2 47 mmHg High 35-45 [facility] Comment on above: Performed By: #### 8 4511 ####[facility] [place] [address], [facility] PEEP 8.0 CMH20 Normal [facility] Comment on above: Performed By: #### 8 4511 ####[facility] pH (Bld) 7.29 [pH] Low 7.35-7.45 [facility] Comment on above: Performed By: #### 8 4511 ####[facility] PRESSURE SUPPORT 10 Normal [facility] Comment on above: Performed By: #### 8 4511 ####[facility] Respiratory rate 14 /min Normal [facility] Comment on above: Performed By: #### 8 4511 ####[facility] TIDAL VOLUME (VT) CC 570 Normal [facility] Comment on above: Performed By: #### 8 4511 ####[facility] BASE EXCESS -6 mmol/L Low -2-3 [facility] Comment on above: Order Comment: evalu ate Performed By: #### 8 4511 ####[facility] [address], [facility] DELIVERY [employer] MV Normal [facility] Comment on above: Order Comment: evalu ate Performed By: #### 8 4511 ####[facility] [place] [address], [facility] FIO2 50 % Normal [facility] Comment on above: Order Comment: evalu ate Performed By: #### 8 4511 ####[facility] [place] [address], [facility] HCO3 (Bld) [Moles/Vol] 21 mmol/L Normal 21-28 [facility] Comment on above: Order Comment: evalu ate Performed By: #### 8 4511 ####[facility] [place] [address], [facility] IONIZED CALCIUM 1.14 mmol/L Normal 1.13-1.32 [facility] Comment on above: Order Comment: evalu ate Performed By: #### 8 4511 ####[facility] [place] [address], [facility] MIN VOLUME 8.9 Normal [facility] Comment on above: Order Comment: evalu ate Performed By: #### 8 4511 ####[facility] [place] [address], [facility] MODALITY SIMV Normal [facility] Comment on above: Order Comment: evalu ate Performed By: #### 8 4511 ####[facility] [place] [address], [facility] Oxygen (Bld) [Partial pressure] 133 mm[Hg] Critically high 83-108 [facility] Comment on above: Order Comment: evalu ate Performed By: #### 8 4511 ####[facility] [place] [address], [facility] Oxygen saturation in Blood 97.4 % High 94.0-97.0 [facility] Comment on above: Order Comment: evalu ate Performed By: #### 8 4511 ####[facility] [place] [address], [facility] PCO2 42 mmHg Normal 35-45 [facility] Comment on above: Order Comment: evalu ate Performed By: #### 8 4511 ####[facility] [place] [address], [place] PEEP 8.0 CMH20 Normal [facility] Comment on above: Order Comment: evalu ate Performed By: #### 8 4511 ####[facility] [place] [address], [place] pH (Bld) 7.30 [pH] Low 7.35-7.45 [facility] Comment on above: Order Comment: evalu ate Performed By: #### 8 4511 ####[facility] [place] [address], [facility] PRESSURE SUPPORT 10 Normal [facility] Comment on above: Order Comment: evalu ate Performed By: #### 8 4511 ####[facility] [place] [address], [place] Respiratory rate 14 /min Normal [facility] Comment on above: Order Comment: evalu ate Performed By: #### 8 4511 ####[facility] [place] [address], [place] TIDAL VOLUME (VT) CC 570 Normal [facility] Comment on above: Order Comment: evalu ate Performed By: #### 8 4511 ####[facility] [place] [address], [place] BASIC METABOLIC PANELon 06-0 -2021 Calcium [Mass/Vol] 8.6 mg/dL Normal 8.6-10.3 [facility] Comment on above: Order Comment: No: D o not add to previous draw Performed By: #### 0 0071, 90774, 98617 ####[facility] [place] [address], [place] Chloride [Moles/Vol] 108 mmol/L High 98-107 [facility] Comment on above: Order Comment: No: D o not add to previous draw Performed By: #### 0 0071, 23663, 88811 ####[facility] [place] [address], [place] CO2 [Moles/Vol] 22 mmol/L Normal 21-31 [facility] Comment on above: Order Comment: No: D o not add to previous draw Performed By: #### 0 0071, 39811, 71533 ####[facility] [place] [address], [facility] Creatinine [Mass/Vol] 0.97 mg/dL Normal 0.70-1.30 [facility] Comment on above: Order Comment: No: D o not add to previous draw Performed By: #### 0 0071, 32005, 16939 ####[facility] [place] [address], [place] Glucose [Mass/Vol] 177 mg/dL High 70-100 [facility] Comment on above: Order Comment: No: D o not add to previous draw Performed By: #### 0 0071, 15637, 79179 ####[facility] [place] [address], [place] Potassium [Moles/Vol] 4.8 mmol/L Normal 3.5-5.1 [facility] Comment on above: Order Comment: No: D o not add to previous draw Performed By: #### 0 0071, 16615, 52948 ####[facility] [place] [address], [place] Urea nitrogen [Mass/Vol] 12 mg/dL Normal 7-25 [facility] Comment on above: Order Comment: No: D o not add to previous draw Performed By: #### 0 0071, 97020, 72473 ####[facility] [id number], [facility] Calcium [Mass/Vol] 8.1 mg/dL Low 8.6-10.3 [facility] Comment on above: Performed By: #### 1 69, 27111 ####[facility] [place] [address], [place] Chloride [Moles/Vol] 107 mmol/L Normal 98-107 [facility] Comment on above: Performed By: #### 1 69, 46358 ####[facility] [place] [address], [facility] CO2 [Moles/Vol] 23 mmol/L Normal 21-31 [facility] [facility] Comment on above: Performed By: #### 1 69, [id number] ####[facility] [id number], [facility] Creatinine [Mass/Vol] 1.02 mg/dL Normal 0.70-1.30 [facility] Comment on above: Performed By: #### 1 69, 22631 ####[facility] [place] [address], [facility] GFR/1.73 sq M.predicted among blacks MDRD (S/P/Bld) [Vol rate/Area] mL/min/{1.73_m2} Normal >60 [facility] Comment on above: Order Comment: No: D o not add to previous draw Performed By: #### 0 0071, 52760, 14293 ####[facility] [place] [address], [facility] Performed By: #### 1 69, 65776 ####[facility] [place] [address], [facility] GFR/1.73 sq M.predicted among non-blacks MDRD (S/P/Bld) [Vol rate/Area] mL/min/{1.73_m2} Normal >60 [facility] Comment on above: Order Comment: No: D o not add to previous draw Performed By: #### 0 0071, 02064, 81471 ####[facility] [place] [address], [facility] Performed By: #### 1 69, 74721 ####[facility] [place] [address], [place] Glucose [Mass/Vol] 124 mg/dL High 70-100 [facility] Comment on above: Performed By: #### 1 69, 10698 ####[facility] [place] [address], [place] Potassium [Moles/Vol] 3.8 mmol/L Normal 3.5-5.1 [facility] Comment on above: Performed By: #### 1 69, ####[facility] [place] [address], [place] Sodium [Moles/Vol] 138 mmol/L Normal 136-145 [facility] Comment on above: Performed By: #### 1 69, 48926 ####[facility] [place] [address], [facility] Urea nitrogen [Mass/Vol] 11 mg/dL Normal 7-25 [facility] Comment on above: Performed By: #### 1 69, 38320 ####[facility] [place] [address], [place] Sodium [Moles/Vol] 139 mmol/L Normal 138-146 [facility] Comment on above: Order Comment: No: D o not add to previous draw Performed By: #### 0 0071, 23767, 04476 ####[facility] [place] [address], [facility] Performed By: #### 3 0738 ####[facility] [place] [address], [place] CBC COMPLETE BLOOD COUNTon 0 01-03-2022 Erythrocyte distribution width (RBC) [Ratio] 12.7 % Normal 11.5-15.0 [facility] Comment on above: Order Comment: evalu ate Performed By: #### 5 0608 ####[facility] Hematocrit (Bld) [Volume fraction] 30.8 % Low 39.0-50.0 [facility] Comment on above: Order Comment: evalu ate Performed By: #### 5 0608 ####[facility] Hemoglobin (Bld) [Mass/Vol] 10.9 g/dL Low 13.0-17.0 [facility] Comment on above: Order Comment: evalu ate Performed By: #### 5 0608 ####[facility] MCH (RBC) [Entitic mass] 30.1 pg Normal 27.0-33.0 [facility] Comment on above: Order Comment: evalu ate Performed By: #### 5 0608 ####[facility] MCHC (RBC) [Mass/Vol] 35.4 g/dL High 32.0-35.0 [facility] Comment on above: Order Comment: evalu ate Performed By: #### 5 0608 ####[facility] MCV (RBC) [Entitic vol] 85.1 fL Normal 82.0-98.0 [facility] Comment on above: Order Comment: evalu ate Performed By: #### 5 0608 ####[address] PLAT CNT 135 10*3/uL Low 150-400 [facility] Comment on above: Order Comment: evalu ate Performed By: #### 5 0608 ####[facility] [facility] [address], [facility] RBC (Bld) [#/Vol] 3.62 10*6/uL Low 4.20-5.70 [facility] Comment on above: Order Comment: evalu ate Performed By: #### 5 0608 ####[facility] [place] [address], [facility] WBC (Bld) [#/Vol] 14.29 10*3/uL High 4.00-10.60 [facility] Comment on above: Order Comment: evalu ate Performed By: #### 5 0608 ####[address] Erythrocyte distribution width (RBC) [Ratio] 12.6 % Normal 11.5-15.0 [facility] Comment on above: Performed By: #### 5 0608 ####[address] Hematocrit (Bld) [Volume fraction] 28.9 % Low 39.0-50.0 [facility] Comment on above: Performed By: #### 5 0608 ####[place] [address], [facility] Hemoglobin (Bld) [Mass/Vol] 10.3 g/dL Low 13.0-17.0 [facility] Comment on above: Performed By: #### 5 0608 ####[place] [address] [facility] [address], [facility] MCH (RBC) [Entitic mass] 30.3 pg Normal 27.0-33.0 [facility] Comment on above: Performed By: #### 5 0608 ####[place] [address], [facility] MCHC (RBC) [Mass/Vol] 35.6 g/dL High 32.0-35.0 [facility] Comment on above: Performed By: #### 5 0608 ####[facility] [facility] [address], [facility] MCV (RBC) [Entitic vol] 85.0 fL Normal 82.0-98.0 [facility] Comment on above: Performed By: #### 5 0608 ####[facility] [facility].[address] Nucleated RBC/100 WBC (Bld) [Ratio] 0 % Normal 0-0 [facility] Comment on above: Order Comment: evalu ate Performed By: #### 5 0608 ####[address] PLAT CNT 127 10*3/uL Low 150-400 [facility] Comment on above: Performed By: #### 5 0608 ####[facility] [facility].[address] RBC (Bld) [#/Vol] 3.40 10*6/uL Low 4.20-5.70 [facility] Comment on above: Performed By: #### 5 0608 ####[place] [address] [facility] [address], [facility] WBC (Bld) [#/Vol] 13.69 10*3/uL High 4.00-10.60 [facility] Comment on above: Performed By: #### 5 0608 ####[facility] [place] [address], [facility] FIBRINOGENon 01-03-2022 FIBRINOGEN 168 mg/dL Normal 150-425 [facility] Comment on above: Performed By: #### 5 7307, 17659, 52850 ####[facility] [place] [address], [facility] LACTATE BLOODon 06-08-2022 Lactate [Moles/Vol] 1.4 mmol/L Normal .5-2.2 [facility] Comment on above: Order Comment: No: D o not add to previous draw Performed By: #### 1 0054 ####[facility] [facility] MAGNESIUM BLOODon 01-03-2022 Magnesium [Mass/Vol] 2.4 mg/dL Normal 1.9-2.7 [facility] Comment on above: Order Comment: No: D o not add to previous draw Performed By: #### 0 0071, 69796, 68246 ####[facility] [facility].[address] Magnesium [Mass/Vol] 2.9 mg/dL High 1.9-2.7 [facility] Comment on above: Performed By: #### 1 0070, 06362 ####[facility] [facility] PERFUSION BLOOD PANELon BASE EXCESS -4.0 mmol/L Low -2.0-3.0 [facility] Comment on above: Performed By: #### 3 0738 ####[facility] [facility].[address] Glucose [Mass/Vol] 129 mg/dL High 70-105 [facility] Comment on above: Performed By: #### 3 0738 ####[facility] [facility] Hematocrit (Bld) [Volume fraction] 29 % Low 38-51 [facility] Comment on above: Performed By: #### 3 0738 ####[facility] [place] [address], [facility] Hemoglobin (Bld) [Mass/Vol] 9.9 g/dL Low 12.0-17.0 [facility] Comment on above: Performed By: #### 3 0738 ####[facility] [facility].[address] IONIZED CALCIUM 1.22 mmol/L Normal 1.12-1.32 [facility] Comment on above: Performed By: #### 3 0738 ####[facility] Oxygen (Bld) [Partial pressure] 115.0 mm[Hg] High 80.0-105.0 [facility] Comment on above: Performed By: #### 3 0738 ####[place] [address] [facility] [address], [facility] PCO2 46.3 mmHg High 35.0-45.0 [facility] Comment on above: Performed By: #### 3 0738 ####[place] [address] [facility].[address] pH (Bld) 7.29 [pH] Low 7.35-7.45 [facility] Comment on above: Performed By: #### 3 0738 ####[place] [address] [facility].[address] Potassium [Moles/Vol] 3.8 mmol/L Normal 3.5-4.9 [facility] Comment on above: Performed By: #### 3 0738 ####[facility] [place] [address], [facility] Sodium [Moles/Vol] 141 mmol/L Normal 138-146 [facility] Comment on above: Performed By: #### 3 0738 ####[place] [address] [place] [address], [facility] BASE EXCESS -3.0 mmol/L Low -2.0-3.0 [facility] Comment on above: Performed By: #### 3 0738 ####[facility] [place] [address], [facility] Glucose [Mass/Vol] 120 mg/dL High 70-105 [facility] Comment on above: Performed By: #### 3 0738 ####[facility] [place] [address], [facility] Hematocrit (Bld) [Volume fraction] 27 % Low 38-51 [facility] Comment on above: Performed By: #### 3 0738 ####[facility] [place] [address], [facility] Hemoglobin (Bld) [Mass/Vol] 9.2 g/dL Low 12.0-17.0 [facility] Comment on above: Performed By: #### 3 0738 ####[facility] [place] [address], [facility] IONIZED CALCIUM 1.27 mmol/L Normal 1.12-1.32 [facility] Comment on above: Performed By: #### 3 0738 ####[facility] [place] [address], [facility] Oxygen (Bld) [Partial pressure] 215.0 mm[Hg] High 80.0-105.0 [facility] Comment on above: Performed By: #### 3 0738 ####[place] [address] [place] [address], [facility] PCO2 44.6 mmHg Normal 35.0-45.0 [facility] Comment on above: Performed By: #### 3 0738 ####[facility] [place] [address], [facility] pH (Bld) 7.32 [pH] Low 7.35-7.45 [facility] Comment on above: Performed By: #### 3 0738 ####[facility] [place] [address], [facility] Potassium [Moles/Vol] 3.9 mmol/L Normal 3.5-4.9 [facility] Comment on above: Performed By: #### 3 0738 ####[facility] Sodium [Moles/Vol] 141 mmol/L Normal 138-146 [facility] Comment on above: Performed By: #### 3 0738 ####[facility] [facility].[address] BASE EXCESS 1.0 mmol/L Normal -2.0-3.0 [facility] Comment on above: Performed By: #### 3 0738 ####[place] [address] [facility].[address] Glucose [Mass/Vol] 125 mg/dL High 70-105 [facility] Comment on above: Performed By: #### 3 0738 ####[place] [address] [facility].[address] Hematocrit (Bld) [Volume fraction] 28 % Low 38-51 [facility] Comment on above: Performed By: #### 3 0738 ####[place] [address] [facility].[address] Hemoglobin (Bld) [Mass/Vol] 9.5 g/dL Low 12.0-17.0 [facility] Comment on above: Performed By: #### 3 0738 ####[place] [address] IONIZED CALCIUM 1.73 mmol/L Critically high 1.12-1.32 [facility] Comment on above: Performed By: #### 3 0738 ####[place] [address] [facility].[address] Oxygen (Bld) [Partial pressure] 392.0 mm[Hg] High 80.0-105.0 [facility] Comment on above: Performed By: #### 3 0738 ####[id number] [place] [address], [facility] PCO2 42.7 mmHg Normal 35.0-45.0 [facility] Comment on above: Performed By: #### 3 0738 ####[facility] [place] [address], [facility] pH (Bld) 7.39 [pH] Normal 7.35-7.45 [facility] Comment on above: Performed By: #### 3 0738 ####[facility] [place] [address], [place] Potassium [Moles/Vol] 4.4 mmol/L Normal 3.5-4.9 [facility] Comment on above: Performed By: #### 3 0738 ####[facility] [place] [address], [place] Sodium [Moles/Vol] 137 mmol/L Low 138-146 [facility] Comment on above: Performed By: #### 3 0738 ####[facility] [place] [address], [facility] BASE EXCESS 2.0 mmol/L Normal -2.0-3.0 [facility] Comment on above: Performed By: #### 3 0738 ####[facility] [place] [address], [facility] Glucose [Mass/Vol] 124 mg/dL High 70-105 [facility] Comment on above: Performed By: #### 3 0738 ####[facility] [place] [address], [place] Hematocrit (Bld) [Volume fraction] 30 % Low 38-51 [facility] Comment on above: Performed By: #### 3 0738 ####[facility] [place] [address], [facility] Hemoglobin (Bld) [Mass/Vol] 10.2 g/dL Low 12.0-17.0 [facility] Comment on above: Performed By: #### 3 0738 ####[facility] [place] [address], [facility] IONIZED CALCIUM 1.14 mmol/L Normal 1.12-1.32 [facility] Comment on above: Performed By: #### 3 0738 ####[facility] [place] [address], [facility] Oxygen (Bld) [Partial pressure] 333.0 mm[Hg] High 80.0-105.0 [facility] Comment on above: Performed By: #### 3 0738 ####[facility] [place] [address], [facility] PCO2 41.5 mmHg Normal 35.0-45.0 [facility] Comment on above: Performed By: #### 3 0738 ####[facility] [place] [address], [facility] pH (Bld) 7.41 [pH] Normal 7.35-7.45 [facility] Comment on above: Performed By: #### 3 0738 ####[facility] [place] [address], [facility] Potassium [Moles/Vol] 4.3 mmol/L Normal 3.5-4.9 [facility] Comment on above: Performed By: #### 3 0738 ####[facility] [place] [address], [place] Sodium [Moles/Vol] 138 mmol/L Normal 138-146 [facility] Comment on above: Performed By: #### 3 0738 ####[facility] [place] [address], [facility] BASE EXCESS 1.0 mmol/L Normal -2.0-3.0 [facility] Comment on above: Performed By: #### 3 0738 ####[facility] Glucose [Mass/Vol] 127 mg/dL High 70-105 [facility] Comment on above: Performed By: #### 3 0738 ####[facility] Hematocrit (Bld) [Volume fraction] 31 % Low 38-51 [facility] Comment on above: Performed By: #### 3 0738 ####[facility] [facility] Hemoglobin (Bld) [Mass/Vol] 10.5 g/dL Low 12.0-17.0 [facility] Comment on above: Performed By: #### 3 0738 ####[place] [address] [facility] IONIZED CALCIUM 1.09 mmol/L Low 1.12-1.32 [facility] Comment on above: Performed By: #### 3 0738 ####[place] [address] [facility].[address] Oxygen (Bld) [Partial pressure] 351.0 mm[Hg] High 80.0-105.0 [facility] Comment on above: Performed By: #### 3 0738 ####[facility] [facility].[address] PCO2 38.6 mmHg Normal 35.0-45.0 [facility] Comment on above: Performed By: #### 3 0738 ####[place] [address] [facility].[address] pH (Bld) 7.43 [pH] Normal 7.35-7.45 [facility] Comment on above: Performed By: #### 3 0738 ####[address] [place] [address], [facility] Potassium [Moles/Vol] 4.4 mmol/L Normal 3.5-4.9 [facility] Comment on above: Performed By: #### 3 0738 ####[facility] [place] [address], [place] Sodium [Moles/Vol] 138 mmol/L Normal 138-146 [facility] Comment on above: Performed By: #### 3 0738 ####[facility] [place] [address], [facility] BASE EXCESS 4.0 mmol/L High -2.0-3.0 [facility] Comment on above: Performed By: #### 3 0738 ####[facility] [place] [address], [facility] Glucose [Mass/Vol] 117 mg/dL High 70-105 [facility] Comment on above: Performed By: #### 3 0738 ####[facility] [place] [address], [facility] Hematocrit (Bld) [Volume fraction] 29 % Low 38-51 [facility] Comment on above: Performed By: #### 3 0738 ####[facility] [place] [address], [facility] Hemoglobin (Bld) [Mass/Vol] 9.9 g/dL Low 12.0-17.0 [facility] Comment on above: Performed By: #### 3 0738 ####[facility] [place] [address], [facility] IONIZED CALCIUM 1.02 mmol/L Low 1.12-1.32 [facility] Comment on above: Performed By: #### 3 0738 ####[facility] [place] [address], [facility] Oxygen (Bld) [Partial pressure] 531.0 mm[Hg] High 80.0-105.0 [facility] Comment on above: Performed By: #### 3 0738 ####[facility] [place] [address], [facility] PCO2 42.7 mmHg Normal 35.0-45.0 [facility] Comment on above: Performed By: #### 3 0738 ####[facility] [place] [address], [facility] pH (Bld) 7.43 [pH] Normal 7.35-7.45 [facility] Comment on above: Performed By: #### 3 0738 ####[facility] [place] [address], [facility] Potassium [Moles/Vol] 4.1 mmol/L Normal 3.5-4.9 [facility] Comment on above: Performed By: #### 3 0738 ####[facility] [place] [address], [facility] BASE EXCESS 0.0 mmol/L Normal -2.0-3.0 [facility] Comment on above: Performed By: #### 3 0738 ####[facility] [place] [address], [facility] Glucose [Mass/Vol] 108 mg/dL High 70-105 [facility] Comment on above: Performed By: #### 3 0738 ####[facility] [place] [address], [facility] Hematocrit (Bld) [Volume fraction] 27 % Low 38-51 [facility] Comment on above: Performed By: #### 3 0738 ####[facility] [place] [address], [facility] Hemoglobin (Bld) [Mass/Vol] 9.2 g/dL Low 12.0-17.0 [facility] Comment on above: Performed By: #### 3 0738 ####[facility] IONIZED CALCIUM 1.04 mmol/L Low 1.12-1.32 [facility] Comment on above: Performed By: #### 3 0738 ####[facility] [place] [address], [facility] Oxygen (Bld) [Partial pressure] 46.0 mm[Hg] Normal [facility] Comment on above: Performed By: #### 3 0738 ####[facility] [place] [address], [facility] PCO2 44.8 mmHg Normal 41.0-51.0 [facility] Comment on above: Performed By: #### 3 0738 ####[place] [address] [place] [address], [facility] pH (Bld) 7.36 [pH] Normal 7.31-7.41 [facility] Comment on above: Performed By: #### 3 0738 ####[facility] [place] [address], [facility] Potassium [Moles/Vol] 4.5 mmol/L Normal 3.5-4.9 [facility] Comment on above: Performed By: #### 3 0738 ####[facility] [place] [address], [facility] Sodium [Moles/Vol] 140 mmol/L Normal 138-146 [facility] Comment on above: Performed By: #### 3 0738 ####[facility] [place] [address], [facility] BASE EXCESS -1.0 mmol/L Normal -2.0-3.0 [facility] Comment on above: Performed By: #### 3 0738 ####[facility] [place] [address], [facility] Glucose [Mass/Vol] 123 mg/dL High 70-105 [facility] Comment on above: Performed By: #### 3 0738 ####[facility] [place] [address], [facility] Hematocrit (Bld) [Volume fraction] 38 % Normal 38-51 [facility] Comment on above: Performed By: #### 3 0738 ####[facility] [place] [address], [facility] Hemoglobin (Bld) [Mass/Vol] 12.9 g/dL Normal 12.0-17.0 [facility] Comment on above: Performed By: #### 3 0738 ####[facility] [place] [address], [facility] IONIZED CALCIUM 1.27 mmol/L Normal 1.12-1.32 [facility] Comment on above: Performed By: #### 3 0738 ####[facility] [place] [address], [facility] Oxygen (Bld) [Partial pressure] 146.0 mm[Hg] High 80.0-105.0 [facility] Comment on above: Performed By: #### 3 0738 ####[place] [address] [place] [address], [facility] PCO2 47.8 mmHg High 35.0-45.0 [facility] Comment on above: Performed By: #### 3 0738 ####[facility] [place] [address], [facility] pH (Bld) 7.33 [pH] Low 7.35-7.45 [facility] Comment on above: Performed By: #### 3 0738 ####[facility] [place] [address], [facility] Potassium [Moles/Vol] 3.8 mmol/L Normal 3.5-4.9 [facility] Comment on above: Performed By: #### 3 0738 ####[facility] [facility].[address] Sodium [Moles/Vol] 141 mmol/L Normal 138-146 [facility] Comment on above: Performed By: #### 3 0738 ####[facility] [facility].[address] BASE EXCESS 0.0 mmol/L Normal -2.0-3.0 [facility] Comment on above: Performed By: #### 3 0738 ####[facility] [facility].[address] Glucose [Mass/Vol] 130 mg/dL High 70-105 [facility] Comment on above: Performed By: #### 3 0738 ####[place] [address] [facility].[address] Hematocrit (Bld) [Volume fraction] 42 % Normal 38-51 [facility] Comment on above: Performed By: #### 3 0738 ####[place] [address] [facility].[address] Hemoglobin (Bld) [Mass/Vol] 14.3 g/dL Normal 12.0-17.0 [facility] Comment on above: Performed By: #### 3 0738 ####[facility] [facility].[address] IONIZED CALCIUM 1.30 mmol/L Normal 1.12-1.32 [facility] Comment on above: Performed By: #### 3 0738 ####[facility] [facility].[address] Oxygen (Bld) [Partial pressure] 218.0 mm[Hg] High 80.0-105.0 [facility] Comment on above: Performed By: #### 3 0738 ####[facility] [place] [address], [place] PCO2 43.5 mmHg Normal 35.0-45.0 [facility] Comment on above: Performed By: #### 3 0738 ####[facility] [place] [address], [place] pH (Bld) 7.38 [pH] Normal 7.35-7.45 [facility] Comment on above: Performed By: #### 3 0738 ####[facility] [place] [address], [place] Potassium [Moles/Vol] 3.8 mmol/L Normal 3.5-4.9 [facility] Comment on above: Performed By: #### 3 0738 ####[facility] [place] [address], [place] Sodium [Moles/Vol] 141 mmol/L Normal 138-146 [facility] Comment on above: Performed By: #### 3 0738 ####[facility] [place] [address], [place] PHOSPHORUS BLOODon Phosphate [Mass/Vol] 3.4 mg/dL Normal 2.5-5.0 [facility] Comment on above: Order Comment: No: D o not add to previous draw Performed By: #### 0 0071, 01504, 89774 ####[facility] [place] [address], [place] POC GLUCOSE LABon 01-03-2022 Glucose [Mass/Vol] 156 mg/dL High 70-100 [facility] Comment on above: Performed By: #### 8 5499 ####[facility] [place] [address], [place] Glucose [Mass/Vol] 160 mg/dL High 70-100 [facility] Comment on above: Performed By: #### 8 1799 ####[facility] [place] [address], [place] Glucose [Mass/Vol] 146 mg/dL High 70-100 [facility] Comment on above: Performed By: #### 8 5499 ####[facility] [place] [address], [place] Glucose [Mass/Vol] 135 mg/dL High 70-100 [facility] Comment on above: Performed By: #### 8 5499 ####[facility] [place] [address], [place] Glucose [Mass/Vol] 136 mg/dL High 70-100 [facility] Comment on above: Performed By: #### 8 5499 ####[facility] [place] [address], [facility] PORTABLE CHEST 1 VIEWon PORTABLE CHEST 1 VIEW [facility] Department of Radiology [address] [place] [id number] Patient Name: OSWALD OCHOA : 1955 Sex: M Age: Race: White Pt. Location: [id number] Patient Status: I Ordered Date: 01/03/2022 4:40:00 [...] AP(PA) view was obtained. COMPARISON: None FINDINGS: George-Perry catheter on the right tip in superior [...] the left lower lobe Electronically signed: Tang Pino. Transcribed by: [email or web address], User Resident: Electronically Signed by: TANG PINO @ 01/03/2022 06:07 PM Normal [facility] Comment on above: Order Comment: Check Chest Tube Position, ON ARRIVAL TO CVU PROTHROMBIN TIMEon INR Coag (PPP) [Relative time] 1.28 {INR} High 0.91-1.16 [facility] Comment on above: Order Comment: No: D o not add to previous draw Result Comment: ACCC P RECOMMENDED INR FOR WARFARIN THERAPY ----- ------- CONDITION INR PROPHYLAXIS OF VENOUS THROMBOSIS 2-3 (HIGH-RISK SURGERY) TREATMENT OF VENOUS THROMBOSIS 2-3 TREATMENT OF PULMONARY EMBOLISM 2-3 PREVENTION OF SYSTEMIC EMBOLISM: 2-3 ACUTE MYOCARDIAL INFARCTION TISSUE HEART VALVES VALVULAR HEART DISEASE ATRIAL FIBRILLATION RECURRENT SYSTEMIC EMBOLISM MECHANICAL HEART VALVE 2.5-3.5 FROM: ORAL ANTICOAGULANTS. MECHANISM OF ACTION, CLINICAL EFFECTIVENESS, AND OPTIMAL THERAPEUTIC RANGE. CHEST 1995;108:231S-246S. Performed By: #### 5 7307, 25847 ####[facility] [place] [address], [facility] PT Coag (PPP) [Time] 15.9 s High 12.3-14.8 [facility] Comment on above: Order Comment: No: D o not add to previous draw Result Comment: ALL RESULTS MUST BE INTERPRETED WITH RESPECT TO BLOOD DRAWING ARTIFACT OR DILUTION ERROR OF ANTICOAGULANT AT THE TIME OF SAMPLING. Performed By: #### 5 7307, 43165 ####[facility] [place] [address], [facility] INR Coag (PPP) [Relative time] 1.45 {INR} High 0.91-1.16 [facility] Comment on above: Result Comment: ACCC P RECOMMENDED INR FOR WARFARIN THERAPY ----- ------- CONDITION INR PROPHYLAXIS OF VENOUS THROMBOSIS 2-3 (HIGH-RISK SURGERY) TREATMENT OF VENOUS THROMBOSIS 2-3 TREATMENT OF PULMONARY EMBOLISM 2-3 PREVENTION OF SYSTEMIC EMBOLISM: 2-3 ACUTE MYOCARDIAL INFARCTION TISSUE HEART VALVES VALVULAR HEART DISEASE ATRIAL FIBRILLATION RECURRENT SYSTEMIC EMBOLISM MECHANICAL HEART VALVE 2.5-3.5 FROM: ORAL ANTICOAGULANTS. MECHANISM OF ACTION, CLINICAL EFFECTIVENESS, AND OPTIMAL THERAPEUTIC RANGE. CHEST 1995;108:231S-246S. Performed By: #### 5 7307, 58390, 06781 ####[facility] [facility] PT Coag (PPP) [Time] 17.5 s High 12.3-14.8 [facility] Comment on above: Result Comment: ALL RESULTS MUST BE INTERPRETED WITH RESPECT TO BLOOD DRAWING ARTIFACT OR DILUTION ERROR OF ANTICOAGULANT AT THE TIME OF SAMPLING. Performed By: #### 5 7307, 17646, 22071 ####[facility] [facility] [address], [facility] RBC'S 2 UNITSon 01-03-2022 CROSSMATCH INTERP 1 COMP Normal [facility] Comment on above: Performed By: #### 8 6002 ####[facility] [place] [address], [facility] CROSSMATCH INTERP 2 COMP Normal [facility] Comment on above: Performed By: #### 8 6002 ####[facility] [facility].[address] PRODUCT CODE 1 E0685 Normal [facility] Comment on above: Performed By: #### 8 6002 ####[facility] [facility] [place] [address], [facility] PRODUCT CODE 2 E0336 Normal [facility] Comment on above: Performed By: #### 8 6002 ####[facility] [facility].[address] PRODUCT STATUS 1 RE Normal [facility] Comment on above: Result Comment: Resu lt changed by IF on 01/03/2022 12:35. The previous value was XM. Result changed by IF on 01/03/2022 17:59. The previous value was IS. Result changed by IF on 01/06/2022 07:17. The previous value was XM. Performed By: #### 8 6002 ####[facility] [facility] [place] [address], [facility] PRODUCT STATUS 2 RE Normal [facility] Comment on above: Result Comment: Resu lt changed by IF on 01/03/2022 12:35. The previous value was XM. Result changed by IF on 01/03/2022 17:59. The previous value was IS. Result changed by IF on 01/06/2022 07:17. The previous value was XM. Performed By: #### 8 6002 ####[facility] [facility].[address] UNIT ABO 1 O Normal [facility] Comment on above: Performed By: #### 8 6002 ####[facility] [facility].[address] UNIT ABO 2 O Normal [facility] Comment on above: Performed By: #### 8 6002 ####[facility] [facility].[address] UNIT ID 1 [id number] Normal [facility] Comment on above: Performed By: #### 8 6002 ####[facility] [facility].[address] UNIT ID 2 [id number] Normal [facility] Comment on above: Performed By: #### 8 6002 ####[facility] [facility].[address] UNIT RH 1 Negative Normal [facility] Comment on above: Performed By: #### 8 6002 ####[facility] [facility].[address] UNIT RH 2 Negative Normal [facility] Comment on above: Performed By: #### 8 6002 ####[facility] [facility].[address] APTTon 01-02-2022 aPTT Coag (Bld) [Time] 32.1 s Normal 25.0-35.0 [facility] Comment on above: Order Comment: post [...] THIS PURPOSE. Performed By: #### 5 7307, 29065 ####[facility] [facility].[address] BASIC METABOLIC PANELon 06-0 -2021 Calcium [Mass/Vol] 9.5 mg/dL Normal 8.6-10.3 [facility] Comment on above: Order Comment: No: D o not add to previous draw Performed By: #### 1 0070, 75915, 44221, 22981 ####[facility] [place] [address], [facility] Chloride [Moles/Vol] 105 mmol/L Normal 98-107 [facility] Comment on above: Order Comment: No: D o not add to previous draw Performed By: #### 1 0070, 67217, 78489, 48032 ####[facility] [place] [address], [facility] CO2 [Moles/Vol] 24 mmol/L Normal 21-31 [facility] Comment on above: Order Comment: No: D o not add to previous draw Performed By: #### 1 0070, 59226, 97877, 71095 ####[facility] [place] [address], [facility] Creatinine [Mass/Vol] 0.93 mg/dL Normal 0.70-1.30 [facility] Comment on above: Order Comment: No: D o not add to previous draw Performed By: #### 1 0070, 26531, 91461, 50049 ####[facility] [place] [address], [facility] GFR/1.73 sq M.predicted among blacks MDRD (S/P/Bld) [Vol rate/Area] mL/min/{1.73_m2} Normal >60 [facility] Comment on above: Order Comment: No: D o not add to previous draw Performed By: #### 1 0070, 08439, 99976, 57705 ####[facility] [place] [address], [place] GFR/1.73 sq M.predicted among non-blacks MDRD (S/P/Bld) [Vol rate/Area] mL/min/{1.73_m2} Normal >60 [facility] Comment on above: Order Comment: No: D o not add to previous draw Performed By: #### 1 0070, 84102, 82372, 31834 ####[facility] [place] [address], [place] Glucose [Mass/Vol] 127 mg/dL High 70-100 [facility] Comment on above: Order Comment: No: D o not add to previous draw Performed By: #### 1 0, 87864, 37322, 51471 ####[facility] [place] [address], [place] Potassium [Moles/Vol] 3.9 mmol/L Normal 3.5-5.1 [facility] Comment on above: Order Comment: No: D o not add to previous draw Performed By: #### 1 0, 53858, 88675, 79843 ####[facility] [place] [address], [place] Sodium [Moles/Vol] 138 mmol/L Normal 136-145 [facility] Comment on above: Order Comment: No: D o not add to previous draw Performed By: #### 1 0070, 71659, 82064, 00330 ####[facility] [place] [address], [place] Urea nitrogen [Mass/Vol] 13 mg/dL Normal 7-25 [facility] Comment on above: Order Comment: No: D o not add to previous draw Performed By: #### 1 0070, 32572, 53688, 00592 ####[facility] CBC COMPLETE BLOOD COUNTon 0 01-02-2022 Erythrocyte distribution width (RBC) [Ratio] 12.8 % Normal 11.5-15.0 [facility] Comment on above: Order Comment: No: D o not add to previous draw Performed By: #### 5 0608 ####[facility] Hematocrit (Bld) [Volume fraction] 41.4 % Normal 39.0-50.0 [facility] Comment on above: Order Comment: No: D o not add to previous draw Performed By: #### 5 0608 ####[facility] Hemoglobin (Bld) [Mass/Vol] 14.6 g/dL Normal 13.0-17.0 [facility] Comment on above: Order Comment: No: D o not add to previous draw Performed By: #### 5 0608 ####[place] [id number] [address] MCH (RBC) [Entitic mass] 30.1 pg Normal 27.0-33.0 [facility] Comment on above: Order Comment: No: D o not add to previous draw Performed By: #### 5 0608 ####[facility] MCHC (RBC) [Mass/Vol] 35.3 g/dL High 32.0-35.0 [facility] Comment on above: Order Comment: No: D o not add to previous draw Performed By: #### 5 0608 ####[facility] [place] [address] MCV (RBC) [Entitic vol] 85.4 fL Normal 82.0-98.0 [facility] Comment on above: Order Comment: No: D o not add to previous draw Performed By: #### 5 0608 ####[facility] [facility].[address] Nucleated RBC/100 WBC (Bld) [Ratio] 0 % Normal 0-0 [facility] Comment on above: Order Comment: No: D o not add to previous draw Performed By: #### 5 0608 ####[facility] [place] [address], [facility] PLAT CNT 218 10*3/uL Normal 150-400 [facility] Comment on above: Order Comment: No: D o not add to previous draw Performed By: #### 5 0608 ####[facility] [place] [address], [facility] RBC (Bld) [#/Vol] 4.85 10*6/uL Normal 4.20-5.70 [facility] Comment on above: Order Comment: No: D o not add to previous draw Performed By: #### 5 0608 ####[facility] [place] [address], [facility] WBC (Bld) [#/Vol] 6.95 10*3/uL Normal 4.00-10.60 [facility] Comment on above: Order Comment: No: D o not add to previous draw Performed By: #### 5 0608 ####[facility] [facility].[address] LIPID PROFILEon 01-02-2022 Cholesterol [Mass/Vol] 110 mg/dL Low 120-200 [facility] Comment on above: Order Comment: Check Chest Tube Position, ON ARRIVAL TO CVU Result Comment: CHOL ESTEROL REFERENCE RANGE: 20 YEARS AND OLDER CARDIOVASCULAR RISK Less than 200 mg/dl Low Risk 200 to 239 mg/dl Borderline Risk 240 mg/dl and greater High Risk Performed By: #### 4 6413 ####[facility] [place] [address], [facility] Cholesterol in HDL [Mass/Vol] 29 mg/dL Normal 23-92 [facility] Comment on above: Order Comment: Check Chest Tube Position, ON ARRIVAL TO CVU Result Comment: Slig ht variation in normal range could be due to gender and/or age. HDL CHOLESTEROL REFERENCE RANGE: 20 years and older Cardiovascular Risk > or =60 mg/dL Desirable 40 TO 59 mg/dL Low Risk <40 mg/dL High Risk Performed By: #### 4 6413 ####[facility] [place] [address], [facility] Cholesterol in LDL [Mass/Vol] 56 mg/dL Normal 0-130 [facility] Comment on above: Order Comment: Check Chest Tube Position, ON ARRIVAL TO CVU Result Comment: LDL IS A CALCULATION LDL IS ONLY VALID IF THE TRIG IS LESS THAN 400. Performed By: #### 4 6413 ####[facility] [place] [address], [facility] Cholesterol.total/ Cholesterol in HDL [Mass ratio] 3.8 {ratio} Normal .0-4.5 [facility] Comment on above: Order Comment: Check Chest Tube Position, ON ARRIVAL TO CVU Performed By: #### 4 6413 ####[facility] [place] [address], [facility] NON-HDL CHOLESTEROL 81 mg/dL Normal [facility] Comment on above: Order Comment: Check Chest Tube Position, ON ARRIVAL TO CVU Performed By: #### 4 6413 ####[facility] [place] [address], [place] Triglyceride [Mass/Vol] 124 mg/dL Normal 40-149 [facility] Comment on above: Order Comment: Check Chest Tube Position, ON ARRIVAL TO CVU Result Comment: TRIG LYCERIDE REFERENCE RANGE: 20 YEARS AND OLDER CARDIOVASCULAR RISK LESS THAN 150 mg/dl LOW RISK 150 TO 199 mg/dl BORDERLINE RISK 200 mg/dl AND GREATER HIGH RISK Performed By: #### 4 6413 ####[facility] [place] [address], [place] VLDL CHOL 25 mg/dL Normal 0-40 [facility] Comment on above: Order Comment: Check Chest Tube Position, ON ARRIVAL TO CVU Performed By: #### 4 6413 ####[facility] [place] [address], [place] MAGNESIUM BLOODon 01-02-2022 Magnesium [Mass/Vol] 2.1 mg/dL Normal 1.9-2.7 [facility] Comment on above: Order Comment: No: D o not add to previous draw Performed By: #### 1 0070, 02656, 25032, 90913 ####[facility] [place] [address], [place] PHOSPHORUS BLOODon Phosphate [Mass/Vol] 3.9 mg/dL Normal 2.5-5.0 [facility] Comment on above: Order Comment: No: D o not add to previous draw Performed By: #### 1 0070, 17052, 59116, 02677 ####[facility] [place] [address], [place] POC GLUCOSE LABon 01-02-2022 Glucose [Mass/Vol] 149 mg/dL High 70-100 [facility] Comment on above: Performed By: #### 8 5499 ####[facility] [place] [address], [place] Glucose [Mass/Vol] 129 mg/dL High 70-100 [facility] Comment on above: Performed By: #### 8 5499 ####[facility] [place] [address], [place] Glucose [Mass/Vol] 203 mg/dL High 70-100 [facility] Comment on above: Performed By: #### 8 5499 ####[facility] [place] [address], [place] Glucose [Mass/Vol] 139 mg/dL High 70-100 [facility] Comment on above: Performed By: #### 8 5499 ####[facility] [place] [address], [facility] Glucose [Mass/Vol] 153 mg/dL High 70-100 [facility] Comment on above: Performed By: #### 8 5499 ####[facility] [place], [place] [address] [place] [address] POC SARS COV2 ANTIGEN NEGATI VEon 01-02-2022 POC SARS COV2 ANTIGEN NEG Negative Normal NEGATIVE [facility] Comment on above: Result Comment: Nega [...] antigen from SARS-CoV-2 in direct nasopharyngeal swab ([employer]) specimens from individuals who are suspected of [...] of Accreditation. Performed By: #### 3 2044 ####[facility] [place] [address], [facility] PORTABLE CHEST 1 VIEWon 06-0 PORTABLE CHEST 1 VIEW [facility] Department of Radiology [address] [place] [id number] Patient Name: OSWALD OCHOA : 1955 Sex: M Age: Race: White Pt. Location: [id number] Patient Status: I Ordered Date: 01/02/2022 9:50:00 [...] left lung base unchanged Electronically signed: Tang Pino. Transcribed by: [email or web address], User Resident: Electronically Signed by: TANG PINO @ 01/02/2022 10:53 AM Normal [facility] Comment on above: Order Comment: post thoracotomy PROTHROMBIN TIMEon INR Coag (PPP) [Relative time] 1.01 {INR} Normal 0.91-1.16 [facility] Comment on above: Order Comment: post thoracotomy Result Comment: ACCC P RECOMMENDED INR FOR WARFARIN THERAPY ----- ------- CONDITION INR PROPHYLAXIS OF VENOUS THROMBOSIS 2-3 (HIGH-RISK SURGERY) TREATMENT OF VENOUS THROMBOSIS 2-3 TREATMENT OF PULMONARY EMBOLISM 2-3 PREVENTION OF SYSTEMIC EMBOLISM: 2-3 ACUTE MYOCARDIAL INFARCTION TISSUE HEART VALVES VALVULAR HEART DISEASE ATRIAL FIBRILLATION RECURRENT SYSTEMIC EMBOLISM MECHANICAL HEART VALVE 2.5-3.5 FROM: ORAL ANTICOAGULANTS. MECHANISM OF ACTION, CLINICAL EFFECTIVENESS, AND OPTIMAL THERAPEUTIC RANGE. CHEST 1995;108:231S-246S. Performed By: #### 5 7307, 46334 ####[facility] [facility].[address] PT Coag (PPP) [Time] 13.3 s Normal 12.3-14.8 [facility] Comment on above: Order Comment: post thoracotomy Result Comment: ALL RESULTS MUST BE INTERPRETED WITH RESPECT TO BLOOD DRAWING ARTIFACT OR DILUTION ERROR OF ANTICOAGULANT AT THE TIME OF SAMPLING. Performed By: #### 5 7307, 16644 ####[facility] [place] [address], [facility] RBC'S 2 UNITSon 01-02-2022 CROSSMATCH INTERP 1 COMP Normal [facility] Comment on above: Performed By: #### 8 6002 ####[facility] [facility].[address] CROSSMATCH INTERP 2 COMP Normal [facility] Comment on above: Performed By: #### 8 6002 ####[facility] [facility].[place] [id number], [facility] PRODUCT CODE 1 E0336 Normal [facility] Comment on above: Performed By: #### 8 6002 ####[facility] [place] [address], [facility] PRODUCT CODE 2 E0336 Normal [facility] Comment on above: Performed By: #### 8 6002 ####[facility] [facility] [place] [address] [place] [address] PRODUCT STATUS 1 RE Normal [facility] Comment on above: Result Comment: Resu lt changed by IF on 01/03/2022 12:35. The previous value was XM. Result changed by IF on 01/03/2022 17:59. The previous value was IS. Result changed by IF on 01/06/2022 07:17. The previous value was XM. Performed By: #### 8 6002 ####[facility] [facility].[address] PRODUCT STATUS 2 RE Normal [facility] Comment on above: Result Comment: Resu lt changed by IF on 01/03/2022 12:35. The previous value was XM. Result changed by IF on 01/03/2022 17:59. The previous value was IS. Result changed by IF on 01/06/2022 07:17. The previous value was XM. Performed By: #### 8 6002 ####[facility] [place] [address], [facility] UNIT ABO 1 O Normal [facility] Comment on above: Performed By: #### 8 6002 ####[facility] [place] [address], [facility] UNIT ABO 2 O Normal [facility] Comment on above: Performed By: #### 8 6002 ####[facility] [place] [address], [facility] UNIT ID 1 [id number] Normal [facility] Comment on above: Performed By: #### 8 6002 ####[facility] [place] [address], [facility] UNIT ID 2 [id number] Normal [facility] Comment on above: Performed By: #### 8 6002 ####[facility] [place] [address], [facility] UNIT RH 1 Negative Normal [facility] Comment on above: Performed By: #### 8 6002 ####[facility] [place] [address], [facility] UNIT RH 2 Negative Normal [facility] Comment on above: Performed By: #### 8 6002 ####[facility] [place] [address], [facility] TROPONIN-Ion 01-02-2022 Troponin I.cardiac [Mass/Vol] 0.00 ng/mL Normal 0.00-0.04 [facility] Comment on above: Result Comment: REFE RENCE RANGES: 0.00 - 0.04 ng/ml NORMAL 0.05 - 0.50 ng/ml INDETERMINATE > 0.50 ng/ml CONSISTENT WITH AN M.I. Performed By: #### 1 0070, 40831, 20913, 53757 ####[facility] [place] [address], [facility] TYPE AND SCREENon 01-02-2022 ABO INTERPRETATION O Normal [facility] Comment on above: Performed By: #### 6 2586 ####[facility] [place] [address], [facility] RH INTERPRETATION Negative Normal [facility] Comment on above: Performed By: #### 6 2586 ####[facility] [place] [address], [facility] URINALYSIS REFLEXon 01-03-20 22 Appearance (U) CLEAR Normal CLEAR [facility] Comment on above: Order Comment: No: D o not add to previous drawCriteria for reflexing a culture was not met. Please call the lab [phone] within 24 hours of collection time if culture is needed Performed By: #### 3 0965 ####[facility] [place] [address], [place] Bilirubin Ql (U) Negative Normal NEGATIVE [facility] Comment on above: Order Comment: No: D o not add to previous drawCriteria for reflexing a culture was not met. Please call the lab [phone] within 24 hours of collection time if culture is needed Performed By: #### 3 0965 ####[facility] [place] [address], [facility] Color (U) YELLOW Normal YELLOW [facility] Comment on above: Order Comment: No: D o not add to previous drawCriteria for reflexing a culture was not met. Please call the lab [phone] within 24 hours of collection time if culture is needed Performed By: #### 3 0965 ####[facility] [place] [address], [facility] EPIS NONE SEEN Normal FEW,OCC,NO NE SEEN [facility] Comment on above: Order Comment: No: D o not add to previous drawCriteria for reflexing a culture was not met. Please call the lab [phone] within 24 hours of collection time if culture is needed Performed By: #### 3 0965 ####[facility] [place] [address], [place] Glucose Ql (U) Negative Normal NEGATIVE [facility] Comment on above: Order Comment: No: D o not add to previous drawCriteria for reflexing a culture was not met. Please call the lab [phone] within 24 hours of collection time if culture is needed Performed By: #### 3 0965 ####[facility] [place] [address], [place] Hemoglobin Ql (U) Negative Normal NEGATIVE [facility] Comment on above: Order Comment: No: D o not add to previous drawCriteria for reflexing a culture was not met. Please call the lab [email or web address] within 24 hours of collection time if culture is needed Performed By: #### 3 0965 ####[facility] [facility] [place] [address], [facility] KETONE Negative Normal NEGATIVE [facility] Comment on above: Order Comment: No: D o not add to previous drawCriteria for reflexing a culture was not met. Please call the lab [id number] within 24 hours of collection time if culture is needed Performed By: #### 3 0965 ####[facility] [facility] [place] [address], [facility] LEUK ASIF Negative Normal NEGATIVE [facility] Comment on above: Order Comment: No: D o not add to previous drawCriteria for reflexing a culture was not met. Please call the lab [id number] within 24 hours of collection time if culture is needed Performed By: #### 3 0965 ####[facility] [facility] [address], [facility] Nitrite Ql (U) Negative Normal NEGATIVE [facility] Comment on above: Order Comment: No: D o not add to previous drawCriteria for reflexing a culture was not met. Please call the lab [id number] within 24 hours of collection time if culture is needed Performed By: #### 3 0965 ####[facility] [facility] [place] [address], [facility] pH (U) 7.0 [pH] Normal 5.0-8.0 [facility] Comment on above: Order Comment: No: D o not add to previous drawCriteria for reflexing a culture was not met. Please call the lab [id number] within 24 hours of collection time if culture is needed Performed By: #### 3 0965 ####[facility] [place] [address], [facility] Protein Ql (U) Negative Normal NEGATIVE [facility] Comment on above: Order Comment: No: D o not add to previous drawCriteria for reflexing a culture was not met. Please call the lab [id number] within 24 hours of collection time if culture is needed Performed By: #### 3 0965 ####[facility] [facility] [address], [facility] RBC NONE SEEN Normal NONE SEEN [facility] Comment on above: Order Comment: No: D o not add to previous drawCriteria for reflexing a culture was not met. Please call the lab [id number] within 24 hours of collection time if culture is needed Performed By: #### 3 0965 ####[facility] [facility].[address] SPEC GRAV 1.009 Low 1.015-1.02 0 [facility] Comment on above: Order Comment: No: D o not add to previous drawCriteria for reflexing a culture was not met. Please call the lab [id number] within 24 hours of collection time if culture is needed Performed By: #### 3 0965 ####[facility] [facility] [address], [facility] UA COMMENT 2 UROBILINOGEN (E.U./DL)= 2.0 Normal [facility] Comment on above: Order Comment: No: D o not add to previous drawCriteria for reflexing a culture was not met. Please call the lab [id number] within 24 hours of collection time if culture is needed Performed By: #### 3 0965 ####[facility] [place] [address], [facility] WBC UA NONE SEEN Normal NONE SEEN [facility] Comment on above: Order Comment: No: D o not add to previous drawCriteria for reflexing a culture was not met. Please call the lab [id number] within 24 hours of collection time if culture is needed Performed By: #### 3 0965 ####[facility] [facility].[address] APTTon 01-01-2022 aPTT Coag (Bld) [Time] 31.6 s Normal 25.0-35.0 [facility] Comment on above: Order Comment: post [...] THIS PURPOSE. Performed By: #### 5 6101, 91938 ####[facility] [place] [address], [facility] BASIC METABOLIC PANELon 06-0 -2021 Calcium [Mass/Vol] 9.6 mg/dL Normal 8.6-10.3 [facility] Comment on above: Order Comment: Check Chest Tube Position, ON ARRIVAL TO CVU Performed By: #### 3 5200, 14497, 36370, 41807 ####[facility] [place] [address], [facility] Chloride [Moles/Vol] 105 mmol/L Normal 98-107 [facility] Comment on above: Order Comment: Check Chest Tube Position, ON ARRIVAL TO CVU Performed By: #### 3 5200, 90867, 36170, 59894 ####[facility] [place] [address], [facility] CO2 [Moles/Vol] 25 mmol/L Normal 21-31 [facility] Comment on above: Order Comment: Check Chest Tube Position, ON ARRIVAL TO CVU Performed By: #### 3 5200, 49788, 41778, 53781 ####[facility] [place] [address], [place] Creatinine [Mass/Vol] 1.03 mg/dL Normal 0.70-1.30 [facility] Comment on above: Order Comment: Check Chest Tube Position, ON ARRIVAL TO CVU Performed By: #### 3 5200, 09718, 29177, 50792 ####[facility] [place] [address], [facility] GFR/1.73 sq M.predicted among blacks MDRD (S/P/Bld) [Vol rate/Area] mL/min/{1.73_m2} Normal >60 [facility] Comment on above: Order Comment: Check Chest Tube Position, ON ARRIVAL TO CVU Performed By: #### 3 5200, 23592, 91562, 48900 ####[facility] [place] [address], [facility] GFR/1.73 sq M.predicted among non-blacks MDRD (S/P/Bld) [Vol rate/Area] mL/min/{1.73_m2} Normal >60 [facility] Comment on above: Order Comment: Check Chest Tube Position, ON ARRIVAL TO CVU Performed By: #### 3 5200, 96775, 24406, 71175 ####[facility] [place] [address], [facility] Glucose [Mass/Vol] 101 mg/dL High 70-100 [facility] Comment on above: Order Comment: Check Chest Tube Position, ON ARRIVAL TO CVU Performed By: #### 3 5200, 47762, 27110, 97798 ####[facility] [place] [address], [facility] Potassium [Moles/Vol] 3.9 mmol/L Normal 3.5-5.1 [facility] Comment on above: Order Comment: Check Chest Tube Position, ON ARRIVAL TO CVU Performed By: #### 3 5200, 15025, 03833, 19329 ####[facility] [place] [address], [place] Sodium [Moles/Vol] 138 mmol/L Normal 136-145 [facility] Comment on above: Order Comment: Check Chest Tube Position, ON ARRIVAL TO CVU Performed By: #### 3 5200, 83493, 62118, 88634 ####[facility] Urea nitrogen [Mass/Vol] 13 mg/dL Normal 7-25 [facility] Comment on above: Order Comment: Check Chest Tube Position, ON ARRIVAL TO CVU Performed By: #### 3 5200, 84558, 85458, 39326 ####[facility] BNP (B-TYPE NATRIURETIC PEPT [place])on 01-01-2022 Natriuretic peptide B (Bld) [Mass/Vol] 19 pg/mL Normal 0-100 [facility] Comment on above: Order Comment: Check Chest Tube Position Result Comment: Give n the appropriate clinical setting a BNP result of >100 pg/mL indicates congestive heart failure. Performed By: #### 8 5123 ####[address] CBC W/DIFFon 01-01-2022 ABS IMM GRANS 0.0 10*3/uL Normal 0.0-0.2 [facility] Comment on above: Performed By: #### 5 0103 ####[place] [address] ABS NEUTROPHILS 4.9 10*3/uL Normal 1.6-7.6 [facility] Comment on above: Performed By: #### 5 0103 ####[facility] [place] [address], [facility] Basophils (Bld) [#/Vol] 0.0 10*3/uL Normal 0.0-0.2 [facility] Comment on above: Performed By: #### 5 0103 ####[place] [address] [place] [address], [facility] Basophils/100 WBC (Bld) 0.5 % Normal 0.0-1.0 [facility] Comment on above: Performed By: #### 5 0103 ####[address] [place] [address], [place] Eosinophils (Bld) [#/Vol] 0.1 10*3/uL Normal 0.0-0.5 [facility] Comment on above: Performed By: #### 5 0103 ####[facility] Eosinophils/100 WBC (Bld) 1.8 % Normal 0.0-6.0 [facility] Comment on above: Performed By: #### 0103 ####[facility] Erythrocyte distribution width (RBC) [Ratio] 12.6 % Normal 11.5-15.0 [facility] Comment on above: Performed By: #### 3 ####[address] Hematocrit (Bld) [Volume fraction] 40.4 % Normal 39.0-50.0 [facility] Comment on above: Performed By: #### 3 ####[place] [address] Hemoglobin (Bld) [Mass/Vol] 14.2 g/dL Normal 13.0-17.0 [facility] Comment on above: Performed By: #### 5 0103 ####[facility] IMMATURE GRANS 0.3 % Normal 0.0-1.0 [facility] Comment on above: Performed By: #### 5 0103 ####[facility] Lymphocytes (Bld) [#/Vol] 2.2 10*3/uL Normal 1.2-4.0 [facility] Comment on above: Performed By: #### 5 0103 ####[facility] Lymphocytes/100 WBC (Bld) 28.0 % Normal 20.0-45.0 [facility] Comment on above: Performed By: #### 5 0103 ####[address] MCH (RBC) [Entitic mass] 30.1 pg Normal 27.0-33.0 [facility] Comment on above: Performed By: #### 5 0103 ####[address] MCHC (RBC) [Mass/Vol] 35.1 g/dL High 32.0-35.0 [facility] Comment on above: Performed By: #### 5 0103 ####[address] MCV (RBC) [Entitic vol] 85.6 fL Normal 82.0-98.0 [facility] Comment on above: Performed By: #### 5 0103 ####[address] Monocytes (Bld) [#/Vol] 0.7 10*3/uL Normal 0.1-1.0 [facility] Comment on above: Performed By: #### 5 0103 ####[address] MONOS 8.5 % Normal 5.0-12.0 [facility] Comment on above: Performed By: #### 5 0103 ####[address] Neutrophils/100 WBC (Bld) 60.9 % Normal 40.0-72.0 [facility] Comment on above: Performed By: #### 5 3 ####[place] [id number], [place] Nucleated RBC/100 WBC (Bld) [Ratio] 0 % Normal 0-0 [facility] Comment on above: Performed By: #### 5 0103 ####[facility] PLAT CNT 237 10*3/uL Normal 150-400 [facility] Comment on above: Performed By: #### 5 0103 ####[facility] RBC (Bld) [#/Vol] 4.72 10*6/uL Normal 4.20-5.70 [facility] Comment on above: Performed By: #### 5 0103 ####[facility] WBC (Bld) [#/Vol] 7.96 10*3/uL Normal 4.00-10.60 [facility] Comment on above: Performed By: #### 5 0103 ####[facility] HEMOGLOBIN A1Con 01-01-2022 Glucose [Moles/Vol] 137 mmol/L Normal [facility] Comment on above: Order Comment: evalu ate Performed By: #### 3 1791 ####[facility] HbA1c (Bld) [Mass fraction] 6.4 % High 4.0-6.0 [facility] Comment on above: Order Comment: evalu ate Performed By: #### 3 3941 ####[facility] MAGNESIUM BLOODon 01-01-2022 Magnesium [Mass/Vol] 2.1 mg/dL Normal 1.9-2.7 [facility] Comment on above: Order Comment: Check Chest Tube Position, ON ARRIVAL TO CVU Performed By: #### 3 5200, 40164, 24090, 89837 ####[facility] [place] [address], [facility] PHOSPHORUS BLOODon Phosphate [Mass/Vol] 3.7 mg/dL Normal 2.5-5.0 [facility] Comment on above: Order Comment: Check Chest Tube Position, ON ARRIVAL TO CVU Performed By: #### 3 5200, 90004, 93314, 79383 ####[facility] [place] [address], [facility] POC GLUCOSE LABon 01-01-2022 Glucose [Mass/Vol] 192 mg/dL High 70-100 [facility] Comment on above: Performed By: #### 8 5499 ####[facility] [place] [address], [place] Glucose [Mass/Vol] 124 mg/dL High 70-100 [facility] Comment on above: Performed By: #### 8 5499 ####[facility] [place] [address], [facility] PORTABLE CHEST 1 VIEWon PORTABLE CHEST 1 VIEW [facility] Department of Radiology [address] [place] [id number] Patient Name: OSWALD OCHOA : 1955 Sex: M Age: Race: White Pt. Location: [id number] Patient Status: I Ordered Date: 01/01/2022 4:50:00 [...] unremarkable. Electronically signed: Dia Hodges. Transcribed by: [email or web address], User Resident: Electronically Signed by: DIA HODGES @ 01/01/2022 05:51 PM Normal [facility] PROTHROMBIN TIMEon INR Coag (PPP) [Relative time] 0.99 {INR} Normal 0.91-1.16 [facility] Comment on above: Order Comment: post thoracotomy Result Comment: ACCC P RECOMMENDED INR FOR WARFARIN THERAPY ----- ------- CONDITION INR PROPHYLAXIS OF VENOUS THROMBOSIS 2-3 (HIGH-RISK SURGERY) TREATMENT OF VENOUS THROMBOSIS 2-3 TREATMENT OF PULMONARY EMBOLISM 2-3 PREVENTION OF SYSTEMIC EMBOLISM: 2-3 ACUTE MYOCARDIAL INFARCTION TISSUE HEART VALVES VALVULAR HEART DISEASE ATRIAL FIBRILLATION RECURRENT SYSTEMIC EMBOLISM MECHANICAL HEART VALVE 2.5-3.5 FROM: ORAL ANTICOAGULANTS. MECHANISM OF ACTION, CLINICAL EFFECTIVENESS, AND OPTIMAL THERAPEUTIC RANGE. CHEST 1995;108:231S-246S. Performed By: #### 5 6101, 22008 ####[facility] [place] [address], [facility] PT Coag (PPP) [Time] 13.1 s Normal 12.3-14.8 [facility] Comment on above: Order Comment: post thoracotomy Result Comment: ALL RESULTS MUST BE INTERPRETED WITH RESPECT TO BLOOD DRAWING ARTIFACT OR DILUTION ERROR OF ANTICOAGULANT AT THE TIME OF SAMPLING. Performed By: #### 5 6101, 00786 ####[facility] [place] [address], [facility] TROPONIN-Ion 01-01-2022 Troponin I.cardiac [Mass/Vol] 0.00 ng/mL Normal 0.00-0.04 [facility] Comment on above: Order Comment: Check Chest Tube Position Result Comment: REFE RENCE RANGES: 0.00 - 0.04 ng/ml NORMAL 0.05 - 0.50 ng/ml INDETERMINATE > 0.50 ng/ml CONSISTENT WITH AN M.I. Performed By: #### 3 5200 ####[facility] [place] [address], [facility] Troponin I.cardiac [Mass/Vol] 0.00 ng/mL Normal 0.00-0.04 [facility] Comment on above: Order Comment: Check Chest Tube Position, ON ARRIVAL TO CVU Result Comment: REFE RENCE RANGES: 0.00 - 0.04 ng/ml NORMAL 0.05 - 0.50 ng/ml INDETERMINATE > 0.50 ng/ml CONSISTENT WITH AN M.I. Performed By: #### 3 5200, 47564, 67925, 84459 ####[facility] [place] [address], [facility] Cardiovascular Lab Reporton 12-19-2021 Cardiovascular Lab Report [facility] Patient Name: Oswald Ochoa [facility] MR #: [id number] Physician: Alissa Girard of MD [facility] Service Date: 12/18/2021 Division of Birthdate: 1955 Cardiology Room #: Adult Cardiovascular Services [facility] [address] [facility]. [place], [place] [address] Cardiovascular Laboratory Report PROCEDURES PERFORMED: 1. Bilateral selective coronary angiography. 2. Left heart catheterization. FINAL IMPRESSIONS: 1. Severe 3 vessel pilot point coronary artery disease. 2. Normal LVEDP. RECOMMENDATIONS: [...] Abnormal stress test. Electronically Signed by: Alissa Galindo MD 12/21/2021 08:10 P Alissa Galindo MD Date Dict: 12/18/2021/02:51 P/Alissa Galindo MD Date Trans: 12/18/2021 11:28 P/mmo [id number] Normal [facility] Vital Signs Date Time Vital Sign Value Performing Clinician Facility 07-06-2024 15:24-0500 Body height 172.7 cm Justus Braxton MD Work Phone: [facility] 07-06-2024 15:24-0500 Body mass index (BMI) [Ratio] 37.07 kg/m2 Justus Braxton MD Work Phone: [facility] 07-06-2024 15:24-0500 Body weight 110.6 kg Justus Braxton MD Work Phone: [facility] 07-06-2024 15:24-0500 Diastolic blood pressure 66 mm[Hg] Justus Braxton MD Work Phone: [facility] 07-06-2024 15:24-0500 Heart rate 56 /min Justus Braxton MD Work Phone: [facility] 07-06-2024 15:24-0500 Systolic blood pressure 163 mm[Hg] Justus Braxton MD Work Phone: [facility] 05-28-2024 09:59-0400 Blood Pressure Location Olivia Galea [facility] 05-28-2024 09:59-0400 Diastolic blood pressure 80 mm[Hg] Olivia Galea [facility] 05-28-2024 09:59-0400 Heart rate 70 /min Olivia Galnataliya [facility] 05-28-2024 09:59-0400 Systolic blood pressure 160 mm[Hg] Olivia Galea [facility] 05-01-2024 10:20-0400 Diastolic blood pressure 79 mm[Hg] Mohamad Mouchli [facility] 05-01-2024 10:20-0400 Heart rate 76 /min Mohamad Mouchli [facility] 05-01-2024 10:20-0400 Mean blood pressure 100 mm[Hg] Mohamad Mouchli [facility] 05-01-2024 10:20-0400 Respiratory rate 15 /min Mohamad Mouchli [facility] 05-01-2024 10:20-0400 SaO2% (BldA) [Mass fraction] 96 % Mohamad Mouchli [facility] 05-01-2024 10:20-0400 Systolic blood pressure 142 mm[Hg] Mohamad Mouchli [facility] 05-01-2024 10:11-0400 Diastolic blood pressure 80 mm[Hg] Mohamad Mouchli [facility] 05-01-2024 10:11-0400 Heart rate 85 /min Mohamad Mouchli [facility] 05-01-2024 10:11-0400 Respiratory rate 14 /min Mohamad Mouchli [facility] 05-01-2024 10:11-0400 SaO2% (BldA) [Mass fraction] 97 % Mohamad Mouchli [facility] 05-01-2024 10:11-0400 Systolic blood pressure 132 mm[Hg] Mohamad Mouchli [facility] 05-01-2024 10:10-0400 Diastolic blood pressure 80 mm[Hg] Mohamad Mouchli [facility] 05-01-2024 10:10-0400 Heart rate 86 /min Mohamad Mouchli [facility] 05-01-2024 10:10-0400 Mean blood pressure 97 mm[Hg] Mohamad Mouchli [facility] 05-01-2024 10:10-0400 Respiratory rate 14 /min Mohamad Mouchli [facility] 05-01-2024 10:10-0400 SaO2% (BldA) [Mass fraction] 97 % Mohamad Mouchli [facility] 05-01-2024 10:10-0400 Systolic blood pressure 130 mm[Hg] Mohamad Mouchli [facility] 05-01-2024 10:05-0400 Blood Pressure Location Mohamad Mouchli [facility] 05-01-2024 10:05-0400 Body temperature 97.88 [degF] Mohamad Mouchli [facility] 05-01-2024 10:05-0400 Mean blood pressure 93 mm[Hg] Mohamad Mouchli [facility] 05-01-2024 08:34-0400 Blood Pressure Location Mohamad Mouchli [facility] 05-01-2024 08:34-0400 Body temperature 97.88 [degF] Mohamad Mouchli [facility] 04-16-2024 10:19-0400 Blood Pressure Location Alissa Echavarriali [facility] 04-16-2024 10:19-0400 Diastolic blood pressure 89 mm[Hg] Kaykayd Tuanuchli [facility] 04-16-2024 10:19-0400 Heart rate 51 /min Alissa Echavarriali [facility] 04-16-2024 10:19-0400 Systolic blood pressure 162 mm[Hg] Alissa Echavarriali [facility] 03-24-2024 11:05-0400 Body height 172.72 cm [facility] 03-24-2024 11:05-0400 Body mass index (BMI) [Ratio] 37.2 kg/m2 [facility] 03-24-2024 11:05-0400 Body weight 111.13 kg [facility] 03-24-2024 11:05-0400 Diastolic blood pressure 83 mm[Hg] [facility] 03-24-2024 11:05-0400 Heart rate 54 /min [facility] 03-24-2024 11:05-0400 Systolic blood pressure 154 mm[Hg] [facility] 08-09-2022 10:45-0500 Body height 173.99 cm Jacob Mckeon Other [employer] [facility] [employer] Other 08-09-2022 10:45-0500 Body mass index (BMI) [Ratio] 35.81 kg/m2 Jacob Mckeon Other [employer] Other 08-09-2022 10:45-0500 Body weight 108.41 kg Jacob Mckeon Other [employer] Other 08-09-2022 10:45-0500 Diastolic blood pressure 72 mm[Hg] Jacob Mckeon Other [employer] Other 08-09-2022 10:45-0500 SaO2% (BldA) [Mass fraction] 97 % Jacob Linda Other [employer] Other 08-09-2022 10:45-0500 Systolic blood pressure 132 mm[Hg] Jacob Linda Other [employer] Other 07-25-2022 13:00-0500 Body height 175.26 cm Mary Ontiveros Other [employer] Other 07-25-2022 13:00-0500 Body mass index (BMI) [Ratio] 35.73 kg/m2 Mary Ontiveros Other [employer] Other 07-25-2022 13:00-0500 Body temperature 97.8 [degF] Mary Ontiveros Other [employer] Other 07-25-2022 13:00-0500 Body weight 109.77 kg Mary Ontiveros Other [employer] Other 07-25-2022 13:00-0500 Respiratory rate 18 /min Mary Ontiveros Other [employer] Other 07-25-2022 13:00-0500 SaO2% (BldA) [Mass fraction] 96 % Mary Ontiveros Other [employer] Other 02-28-2022 12:30-0400 Body height 175.26 cm Cass Juárez Other [employer] Other 02-28-2022 12:30-0400 Body mass index (BMI) [Ratio] 34.26 kg/m2 Cass Juárez Other [employer] Other 02-28-2022 12:30-0400 Body temperature 100.6 [degF] Cass Juárez Other [employer] Other 02-28-2022 12:30-0400 Body weight 105.24 kg Cass Juárez Other [employer] Other 02-28-2022 12:30-0400 Respiratory rate 18 /min Cass Juárez Other [employer] Other 02-28-2022 12:30-0400 SaO2% (BldA) [Mass fraction] 97 % Cass Juárez Other [employer] Other Encounters Encounter Date Encounter Type Care Provider Facility Start: 11-20-2024 ambulatory Shade Rolle ty:ALYSIA Mckeon Start: 07-06-2024 End: 07-06-2024 ambulatory JACOB MCKEON Facility:[facility] Start: 07-06-2024 End: 07-06-2024 Office outpatient new 45 minutes Justus Braxton MD Work Phone: Gastroenterology Comment on above: Subepithelial lesion of esophagus (Primary Dx); Hiatal hernia; Gastroesophageal reflux disease, unspecified whether esophagitis present; Diverticulosis Start: 05-28-2024 End: 05-28-2024 ambulatory Olivia Woodard Facility:[facility] Start: 05-28-2024 End: 05-28-2024 Patient encounter procedure Olivia Woodard [facility] Start: 05-27-2024 End: 05-29-2024 Telephone encounter Justus Braxton MD Work Phone: Gastroenterology Comment on above: Appointment Start: 05-21-2024 End: 05-21-2024 ambulatory Alissa Mooney Facility:[facility] Start: 05-21-2024 End: 05-21-2024 Patient encounter procedure Alissa Mooney [facility] Start: 05-01-2024 End: 05-01-2024 ambulatory Alissa Mooney Facility:[facility] Start: 05-01-2024 End: 05-01-2024 Patient encounter procedure Alissa Mooney [facility] Start: 04-27-2024 End: 04-27-2024 ambulatory [facility] Start: 04-24-2024 ambulatory Alissa Mooney Facilit y:ALYSIA Lomeli Start: 04-16-2024 End: 04-16-2024 ambulatory Alissa Mooney Facility:[facility] Start: 04-16-2024 End: 04-16-2024 Patient encounter procedure Alissa Mooney [facility] Start: 03-24-2024 End: 03-24-2024 ambulatory [facility] Work Phone: Start: 03-24-2024 End: 03-24-2024 Patient encounter procedure [facility] Physician [facility] Work Phone: Start: 11-05-2023 End: 11-05-2023 ambulatory [facility] Start: 08-19-2023 End: 08-19-2023 ambulatory Jacob Mckeon Other [employer] Other Start: 08-19-2023 Telephone encounter Jacob Mckeon [facility] Start: 07-11-2023 End: 07-11-2023 ambulatory TESFAYE REED Not Available Start: 07-09-2023 End: 07-09-2023 ambulatory LEO DELAROSA Not Available Start: 07-04-2023 End: 07-04-2023 ambulatory TESFAYE REED Not Available Start: 07-02-2023 End: 07-02-2023 ambulatory LEO DELAROSA Not Available Start: 06-27-2023 End: 06-27-2023 ambulatory ERICA SAUCEDA Not Available Start: 06-26-2023 End: 06-26-2023 ambulatory ALYSA Small APLING Not Available Start: 06-12-2023 End: 06-13-2023 ambulatory ALYSA B APLING Not Available Start: 12-25-2022 End: 12-26-2022 ambulatory MARCELINO STERN Facility:[facility] Start: 11-22-2022 End: 11-23-[address] JACOB MCKEON Facility:[facility] Start: 11-20-2022 End: 11-21-2022 ambulatory MARCELINO STERN Facility:[facility] Start: 11-12-2022 End: 11-13-2022 ambulatory MARCELINO STERN Facility:[facility] Start: 10-09-2022 End: 10-10-2022 ambulatory CINDY PIZARRO Facility:[facility] Start: 08-24-2022 End: 08-25-[address] CHALO CHEEMA Facility:[facility] Start: 08-09-2022 End: 08-09-2022 ambulatory Jacob Mckeon Other [employer] Other Start: 08-09-2022 Office outpatient vi sit 15 minutes Jacob Mckeon [facility] Start: 07-31-2022 End: 08-15-2022 ambulatory ALISSA GALINDO Facility:[facility] Start: 07-27-2022 End: 07-27-2022 ambulatory Jacob Mckeon Other [employer] Other Start: 07-27-2022 Telephone encounter Jacob Mckeon [facility] Start: 07-25-2022 End: 07-25-2022 ambulatory Mary Ontiveros Other [employer] Other Start: 07-25-2022 Office outpatient vi sit 25 minutes Mary Ontiveros [facility] Start: 06-25-2022 End: 06-26-2022 ambulatory CINDY PIZARRO Facility:[facility] Start: 06-01-2022 End: 06-02-[address] TRINIDAD CHRISTINA Facility:[facility] Start: 05-02-2022 End: 05-03-2022 ambulatory CINDY PIZARRO Facility:[facility] Start: 03-06-2022 Adult health examination Jacob Mckeon Other [employer] Other Start: 02-28-2022 End: 02-28-2022 ambulatory Cass Juárez Other [employer] Other Start: 02-28-2022 Office outpatient ne w 20 minutes Cass Juárez [facility] Start: 02-26-2022 End: 07-31-2022 ambulatory ALISSA GALINDO Facility: Start: 01-01-2022 End: 01-07-2022 Evaluation and management of inpatient JACOB MCKEON Facility:[facility] Start: 01-01-2022 End: 01-02-2022 Evaluation and management of inpatient JACOB MCKEON Facility:[facility] Start: 12-30-2021 End: 01-16-2022 ambulatory JACOB MCKEON Facility:[facility] Start: 12-18-2021 End: 12-19-2021 ambulatory JACOB MCKEON Facility:[facility] Procedures Date Procedure Procedure Detail Performing Clinician Start: 05-01-2024 Colonoscopy Alissa Mooney Start: 05-01-2024 Esophagogastroduodenoscopy Alissa burrows Start: 11-05-2023 Follow-up visit Follow-up ALISSA GALINDO Start: 01-02-2022 Antibody screen JACOB MCKEON Comment on above: Performed By: #### [id number] ####[place] [address] [address] Start: 05-29-2016 General examination of patient Jacob walls Other Start: 06-08-2015 Screening for malignant neoplasm of prostate Jacob Mckeon Other Colonoscopy Alissa Mooney Open heart surgery Olivia dahl Plan of Treatment Date Care Activity Detail Author Start: 2029 RSV Vaccine (1 - 1-dose 75+ series) RSV Vaccine (1 - 1-dose 75+ series) [facility] Start: 07-06-2024 End: 07-06-2024 Patient encounter procedure 07/06/2024 3:30 PM EST Office Visit Gastroenterology [address] [place] [address] [place] [address] [place] [address] Discuss EGD/EUS radial and linear with FNB, per encounter Gastroenterology Comment on above: Discuss EGD/EUS radial and linear with F NB, per encounter Start: 03-29-2024 Covid-19 Vaccine ( season) Covid-19 Vaccine ( season) [facility] Start: 03-29-2024 Influenza vaccination Influenza Vaccine (#1) [facility] Start: 07-29-2023 Advance Directive Discussion Advance Directive Discussion [facility] Start: 2019 Pneumococcal Vaccine: 65+ (1 of 1 - PCV) Pneumococcal Vaccine: 65+ (1 of 1 - PCV) [facility] Start: 2004 Shingrix Vaccine (1 of 2) Shingrix Vaccine (1 of 2) [facility] Start: 1999 Diabetes Screening Diabetes Screening [facility] Start: 1999 Screening for malignant neoplasm of colon [facility] Start: 1989 Lipid panel Lipid Screening [facility] Start: 1973 Urine microalbumin profile DTaP,Tdap,Td Vaccine (1 - Tdap) [facility] Start: 1972 Annual PCP Team Chronic Disease Visit Annual PCP Team Chronic Disease Visit [facility] Start: 1972 Anxiety Screening Anxiety Screening [facility] Start: 1972 Depression Screening Depression Screening [facility] Start: 1972 Hepatitis B surface antibody level LDL Cholesterol [facility] Start: 1972 Hepatitis C screening Hepatitis C Screening [facility] Start: 1954 Abdominal aortic aneurysm screening Abdominal Aortic Aneurysm Screening [facility] End: 07-06-2025 EGD - THERAPEUTIC, EUS, OR TUBE INTERVENTIONS EGD - THERAPEUTIC, EUS, OR TUBE INTERVENTIONS Endoscopy Routine Subepithelial lesion of esophagus 1 Occurrences starting 07/06/2024 until 07/06/2025 [facility] Work Phone: Comment on above: 1 Occurrences starting 07/06/2024 until 07/06/2025 Immunizations Immunization Date Immunization Notes Care Provider Fa cili 06-05-2022 influenza (HD-IIV4) vaccine, age 65+ yr, high dose, quadrivalent, PF (FLUZONE HIGH-DOSE) Justus Braxton MD Work Phone: [facility] 06-05-2022 influenza virus vaccine, split virus (incl. purified surface antigen) Jacob Mckeon Other [employer] Other 06-05-2022 influenza virus vaccine, unspecified formulation [facility] 06-05-2022 Prevnar 20 Jacbo Mckeon Other [facility] 05-02-2018 influenza virus vaccine, split virus (incl. purified surface antigen) Jacob Mckeon Other [facility] [employer] Other 05-02-2018 influenza virus vaccine, unspecified formulation [facility] 05-02-2018 influenza, injectabl e, quadrivalent, preservative free Justus Braxton MD Work Phone: [facility] 05-15-2017 influenza virus vaccine, unspecified formulation [facility] Tuandem[facility] 05-15-2017 influenza, seasonal, injectable, preservative free Justus Braxton MD Work Phone: [facility] 05-15-2017 tetanus and diphther ia toxoids, adsorbed, preservative free, for adult use (5 Lf of tetanus toxoid and 2 Lf of diphtheria toxoid) Jacob Mckeon Other [facility] 05-30-2016 zoster vaccine, live Jacob Mckeon Other [facility] 05-04-2016 influenza virus vaccine, unspecified formulation Alissa Dickersondemi [facility] 05-04-2016 influenza, seasonal, injectable, preservative free Justus Braxton MD Work Phone: [facility] 05-04-2016 tetanus and diphther ia toxoids, adsorbed, preservative free, for adult use (5 Lf of tetanus toxoid and 2 Lf of diphtheria toxoid) Jacob Mckeon Other [facility] Payers Date Payer Category Payer Unknown MMO MMO MEDICARE SUPPLEMENT [id number] 2021-Present [phone] [address] [place] [address] Indemnity [id number] 2019 Medicare MEDICARE MEDICAR E A AND B [id number] 2019-Present [phone] [address] [address] [place] [address] Medicare [id number] 1959 Medicare [id number] 1959 Self-pay 1959 Unknown [id number] 1959 Unknown [id number] 1954 Unknown [id number] 2.16.840.1.764453.3.579.2.647 1954 Unknown [id number] 2.16.840.1.371480.3.579.2.647 1954 Unknown [id number] 2.16.840.1.930784.3.579.2.647 1954 Unknown [id number] 2.16.840.1.209330.3.579.2.647 1954 Unknown [id number] 2.16.840.1.621440.3.579.2.593 1954 Unknown [id number] 2.16.840.1.096708.3.579.2.593 1954 Unknown [id number] 2.16.840.1.471617.3.579.2.593 1954 Unknown [id number] 2.16.840.1.323846.3.579.2.593 1954 Unknown [id number] 2.16.840.1.433636.3.579.2.593 1954 Unknown [id number] 2.16.840.1.780429.3.579.2.593 1954 Unknown [id number] 2.16.840.1.486089.3.579.2.593 1954 Unknown [id number] 2.16.840.1.172933.3.579.2.593 1954 Unknown [id number] 2.16.840.1.797915.3.579.2.593 1954 Unknown [id number] 2.16.840.1.084295.3.579.2.593 1954 Unknown [id number] 2.16.840.1.739135.3.579.2.593 1954 Unknown [id number] 2.16.840.1.040148.3.579.2.1259 1954 Unknown [id number] 2.16.840.1.474759.3.579.2.1259 1954 Unknown [id number] 2.16.840.1.792355.3.579.2.1259 1954 Unknown [id number] 2.16.840.1.073891.3.579.2.1259 1954 Unknown [id number] 2.16.840.1.081589.3.579.2.1259 1954 Unknown [id number] 2.16.840.1.367388.3.579.2.1259 1954 Unknown [id number] 2.16.840.1.316924.3.579.2.1259 1954 Unknown [id number] 2.16.840.1.584385.3.579.2.1259 1954 Unknown [id number] 2.16.840.1.120769.3.579.2.727 1954 Unknown [id number] 2.16.840.1.679288.3.579.2.727 1954 Unknown [id number] 2.16.840.1.809184.3.579.2.727 1954 Unknown [id number] 2.16.840.1.534296.3.579.2.727 1954 Unknown [id number] 2.16.840.1.856061.3.579.2.727 1954 Unknown [id number] 2.16.840.1.651175.3.579.2.727 Medicare [id number] 2.16.840.1.160577.19 Unknown [id number] 2.16.840.1.110452.3.579.2.593 Social History Date Type Detail Facility Start: 07-06-2024 Sex Assigned At F [facility] Start: 1955 Sex Assigned At Male F [facility] Start: 04-16-2024 End: 05-28-2024 Tobacco smoking status Never smoked tobacco (finding) [facility] Tobacco smoking status Never [facility] Start: 07-06-2024 Tobacco smoking status Ex-smoker (fi nding) [facility] [place] Tobacco smoking stat [email or web address] Tobacco smoking consumption unknown [facility] Start: 1955 Sex assigned at Not on file [facility] History of tobacco use Current smoker [facility] History of tobacco use Cigarette Smoker C [facility] Start: 07-06-2024 Tobacco use and exposure Smokeless tobacco non-user [facility] Start: 07-06-2024 Alcoholic beverage intake Current drinker of alcohol (finding) [facility] Start: 07-06-2024 History of Social function [facility] Start: 07-06-2024 Alcohol Comment Socially [facility] Medical Equipment Procedure Code Equipment Code Equipment Origin al Text Equipment Identifier Dates Lancets - Start: 08-19-2023 Functional Status Date Assessment Result Facility 05-28-2024 Functional Status N/A [facility] 05-01-2024 Functional Status N/A [facility] 04-16-2024 Functional Status N/A [facility] Clinical Notes 01-24-2022 to 07-06-2024 Patient InstructionsAl-Justus Boyd MD - 07/06/2024 3:30 PM ESTJustus Braxton MD - 07/06/2024 3:30 PM ESTTelephone Encounter - Angel Rodriguez - 05/29/2024 2:37 PM EDT Note Date & Type Note Facility 07-06-2024 Instructions Justus Braxton MD - 07/06/2024 3:59 PM EST It was nice meeting you Continue taking Prilosec on empty stomach 30-60 minutes before breakfast If you have heartburn symptoms in the evening then take Pepcid as needed Please hold your Plavix 7 days before your procedure Plan for endoscopic ultrasound to evaluate subepithelial lesion in the esophagus documented in this encounter [facility] 07-06-2024 History and physical note Patient presents with: Clinician To Clinician Consult HPI: Oswald Ochoa, 69 year old male with past medical history significant for obesity, hypertension, hyperlipidemia, coronary artery disease status post cardiac bypass x 5 vessel, cholecystectomy, diverticulitis status post hemicolectomy who presents in the office today for evaluation of subepithelial lesion. Patient recently underwent EGD for GERD on 05/01/2024 which showed evidence of subepithelial lesion in the mid esophagus. Biopsies were unremarkable. Colonoscopy at the time was unremarkable. Follow-up CT chest showing esophageal thickening at the GE junction but no evidence of esophageal mass. Patient denies any family history of gastrointestinal malignancies. Patient denies smoking. Denies alcohol use. He takes baby aspirin and Plavix daily. He has heartburn symptoms which he takes Prilosec once a night. Denies NSAIDs use. Denies melena or hematochezia. No unintentional weight loss. Past GI workup (On Plavix) 05/21/2024 CT chest w/IV contrast (imaging is in EPIC under get images) LARGE HIATAL HERNIA CONTAINING PROXIMAL STOMACH. CIRCUMFERENTIAL WALL THICKENING CAUDAL ESOPHAGUS JUST PROXIMAL TO GASTRIC HERNIATION.FINDING MOST LIKELY SECONDARY TO INFLAMMATORY ETIOLOGY/ESOPHAGITIS FROM HIATAL HERNIA. 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 05/01/24 EGD was performed per Dr. Mooney. Z-line irregular, 2 columns of salmon colored mucosa noted Hiatal hernia noted measuring 5 cm Subepithelial lesion appreicated in the mid esophagus Erythema in the antrum, moderate patchy, otherwise normal stomach, biopsies taken to rule out h-pylori Normal duodenum Path as follows: -esophagus, GE junction with moderate chronic inflammation in lamina propria. No intestinal metaplasia -stomach, gastric antral mucosa with mild chronic gastritis, compatible with reactive gastropathy No intestinal metaplasia No H-pylori No past medical history on file. No past surgical history on file. No current outpatient medications on file prior to visit. No current facility-administered medications on file prior to visit. Allergies: Not on File Review of Systems Constitutional: Negative for unexpected weight change. HENT: Negative for trouble swallowing. Gastrointestinal: Negative for abdominal pain, blood in stool, constipation, diarrhea, nausea and vomiting. All other systems reviewed and are negative. BP 163/66 (BP Site: Left Arm) Pulse (!) 56 Ht 172.7 cm (5' 8 ) Wt 110.6 kg (243 lb 13.3 oz) BMI 37.07 kg/m Physical Exam Vitals reviewed. Constitutional: General: He is not in acute distress. Appearance: Normal appearance. HENT: Head: Normocephalic. Eyes: Conjunctiva/sclera: Conjunctivae normal. Cardiovascular: Rate and Rhythm: Normal rate and regular rhythm. Heart sounds: Normal heart sounds. Pulmonary: Effort: Pulmonary effort is normal. Breath sounds: Normal breath sounds. Abdominal: General: There is no distension. Palpations: Abdomen is soft. Tenderness: There is no abdominal tenderness. There is no guarding or rebound. Musculoskeletal: Cervical back: Neck supple. Skin: General: Skin is warm and dry. Neurological: Mental Status: He is oriented to person, place, and time. Psychiatric: Mood and Affect: Mood normal. Subepithelial lesion of esophagus - EGD - THERAPEUTIC, EUS, OR TUBE INTERVENTIONS; Future Hiatal hernia Gastroesophageal reflux disease, unspecified whether esophagitis present Diverticulosis Other orders - aspirin, enteric coated (ASPIRIN, ENTERIC COATED) 81 mg EC tablet; Take 81 mg by mouth once daily. - atorvastatin (LIPITOR) 80 mg tablet; Take 80 mg by mouth. - clopidogrel (PLAVIX) 75 mg tablet; Take 75 mg by mouth. - furosemide (LASIX) 20 mg tablet; Take 20 mg by mouth every morning. - glipiZIDE (GLUCOTROL) 10 mg tablet; Take 1 tablet by mouth every afternoon. - latanoprost (XALATAN) 0.005 % ophthalmic solution; Use 1 Drop in both eyes daily at bedtime. - lisinopril (ZESTRIL) 40 mg tablet; Take 1 tablet by mouth every morning. - metoprolol succinate ER (TOPROL XL) 100 mg; TAKE 1 TABLET BY MOUTH IN THE MORNING *DO NOT CRUSH OR CHEW* - Urtllmgyzrevu-Kukhddte-Pzreul (MULTIVITAMIN 50 PLUS) tab; Take 1 tablet by mouth every morning. - omeprazole (PRILOSEC) 40 mg capsule; Take 40 mg by mouth once daily. - polyethylene glycol 3350 17 gram packet; as needed. - Tadalafil (CIALIS) 5 mg tablet; Take 5 mg by mouth. Assessment Assessment and plan: Oswald Ochoa, 69 year old male with past medical history significant for obesity, hypertension, hyperlipidemia, coronary artery disease status post cardiac bypass x 5 vessel, cholecystectomy, diverticulitis status post hemicolectomy who presents in the office today for evaluation of subepithelial lesion found in the mid esophagus. I reviewed CT chest images with the patient. CT showing distal esophageal wall thickening at the GE junction without evidence of mass. Suspect benign tumor such as lipoma or leiomyoma. Less likely GIST or esophageal cancer. Benefits and risks of endoscopic ultrasound was discussed with the patient and at length. Risks include aspiration, infection, bleeding, perforation or pancreatitis. Proceed with endoscopic ultrasound with FNB Hold Plavix for 5 to 7 days before the procedure Continue PPI daily indefinitely Justus Braxton MD Gastroenterology, Hepatology and Nutrition [facility] 07-06-2024 History and physical note Patient presents with: Clinician To Clinician Consult HPI: Oswald Ochoa, 69 year old male with past medical history significant for obesity, hypertension, hyperlipidemia, coronary artery disease status post cardiac bypass x 5 vessel, cholecystectomy, diverticulitis status post hemicolectomy who presents in the office today for evaluation of subepithelial lesion. Patient recently underwent EGD for GERD on 05/01/2024 which showed evidence of subepithelial lesion in the mid esophagus. Biopsies were unremarkable. Colonoscopy at the time was unremarkable. Follow-up CT chest showing esophageal thickening at the GE junction but no evidence of esophageal mass. Patient denies any family history of gastrointestinal malignancies. Patient denies smoking. Denies alcohol use. He takes baby aspirin and Plavix daily. He has heartburn symptoms which he takes Prilosec once a night. Denies NSAIDs use. Denies melena or hematochezia. No unintentional weight loss. Past GI workup (On Plavix) 05/21/2024 CT chest w/IV contrast (imaging is in EPIC under get images) LARGE HIATAL HERNIA CONTAINING PROXIMAL STOMACH. CIRCUMFERENTIAL WALL THICKENING CAUDAL ESOPHAGUS JUST PROXIMAL TO GASTRIC HERNIATION.FINDING MOST LIKELY SECONDARY TO INFLAMMATORY ETIOLOGY/ESOPHAGITIS FROM HIATAL HERNIA. 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 05/01/24 EGD was performed per Dr. Mooney. Z-line irregular, 2 columns of salmon colored mucosa noted Hiatal hernia noted measuring 5 cm Subepithelial lesion appreicated in the mid esophagus Erythema in the antrum, moderate patchy, otherwise normal stomach, biopsies taken to rule out h-pylori Normal duodenum Path as follows: -esophagus, GE junction with moderate chronic inflammation in lamina propria. No intestinal metaplasia -stomach, gastric antral mucosa with mild chronic gastritis, compatible with reactive gastropathy No intestinal metaplasia No H-pylori No past medical history on file. No past surgical history on file. No current outpatient medications on file prior to visit. No current facility-administered medications on file prior to visit. Allergies: Not on File Review of Systems Constitutional: Negative for unexpected weight change. HENT: Negative for trouble swallowing. Gastrointestinal: Negative for abdominal pain, blood in stool, constipation, diarrhea, nausea and vomiting. All other systems reviewed and are negative. BP 163/66 (BP Site: Left Arm) Pulse (!) 56 Ht 172.7 cm (5' 8 ) Wt 110.6 kg (243 lb 13.3 oz) BMI 37.07 kg/m Physical Exam Vitals reviewed. Constitutional: General: He is not in acute distress. Appearance: Normal appearance. HENT: Head: Normocephalic. Eyes: Conjunctiva/sclera: Conjunctivae normal. Cardiovascular: Rate and Rhythm: Normal rate and regular rhythm. Heart sounds: Normal heart sounds. Pulmonary: Effort: Pulmonary effort is normal. Breath sounds: Normal breath sounds. Abdominal: General: There is no distension. Palpations: Abdomen is soft. Tenderness: There is no abdominal tenderness. There is no guarding or rebound. Musculoskeletal: Cervical back: Neck supple. Skin: General: Skin is warm and dry. Neurological: Mental Status: He is oriented to person, place, and time. Psychiatric: Mood and Affect: Mood normal. Subepithelial lesion of esophagus - EGD - THERAPEUTIC, EUS, OR TUBE INTERVENTIONS; Future Hiatal hernia Gastroesophageal reflux disease, unspecified whether esophagitis present Diverticulosis Other orders - aspirin, enteric coated (ASPIRIN, ENTERIC COATED) 81 mg EC tablet; Take 81 mg by mouth once daily. - atorvastatin (LIPITOR) 80 mg tablet; Take 80 mg by mouth. - clopidogrel (PLAVIX) 75 mg tablet; Take 75 mg by mouth. - furosemide (LASIX) 20 mg tablet; Take 20 mg by mouth every morning. - glipiZIDE (GLUCOTROL) 10 mg tablet; Take 1 tablet by mouth every afternoon. - latanoprost (XALATAN) 0.005 % ophthalmic solution; Use 1 Drop in both eyes daily at bedtime. - lisinopril (ZESTRIL) 40 mg tablet; Take 1 tablet by mouth every morning. - metoprolol succinate ER (TOPROL XL) 100 mg; TAKE 1 TABLET BY MOUTH IN THE MORNING *DO NOT CRUSH OR CHEW* - Qpvnapfgzvbyf-Ndjjhegc-Emsaea (MULTIVITAMIN 50 PLUS) tab; Take 1 tablet by mouth every morning. - omeprazole (PRILOSEC) 40 mg capsule; Take 40 mg by mouth once daily. - polyethylene glycol 3350 17 gram packet; as needed. - Tadalafil (CIALIS) 5 mg tablet; Take 5 mg by mouth. Assessment Assessment and plan: Oswald Ochoa, 69 year old male with past medical history significant for obesity, hypertension, hyperlipidemia, coronary artery disease status post cardiac bypass x 5 vessel, cholecystectomy, diverticulitis status post hemicolectomy who presents in the office today for evaluation of subepithelial lesion found in the mid esophagus. I reviewed CT chest images with the patient. CT showing distal esophageal wall thickening at the GE junction without evidence of mass. Suspect benign tumor such as lipoma or leiomyoma. Less likely GIST or esophageal cancer. Benefits and risks of endoscopic ultrasound was discussed with the patient and at length. Risks include aspiration, infection, bleeding, perforation or pancreatitis. Proceed with endoscopic ultrasound with FNB Hold Plavix for 5 to 7 days before the procedure Continue PPI daily indefinitely Justus Braxton MD Gastroenterology, Hepatology and Nutrition documented in this encounter [facility] 05-29-2024 Telephone encounter Note Spoke to patient and scheduled OV with Dr. Braxton on 07/06/24 at [facility] at 3:30 pm per message below. [facility] 05-29-2024 Miscellaneous Notes Spoke to patient and scheduled OV with Dr. Braxton on 07/06/24 at [facility] at 3:30 pm per message below. I agree may not be a bad idea to bring him in for an OV unless patient would prefer to proceed with the procedure. He will need to stop plavix for 5-7 days. He will need EGD/EUS radial and linear with FNB. Please schedule pt for an office visit with Dr. Braxton for Jul 06 3:30 if pt is agreeable. Thank you Marisa Hu RN Received referral per Dr. Mooney for subepithelial lesion of the mid esophagus. 05/01/24 EGD was preformed per Dr. Mooney. Z-line irregular, 2 columns of salmon colored mucosa noted Hiatal hernia noted measuring 5 cm Subepithelial lesion appreicated in the mid esophagus Erythema in the antrum, moderate patchy, otherwise normal stomach, biopsies taken to rule out h-pylori Normal duodenum Path as follows: -esophagus, GE junction with moderate chronic inflammation in lamina propria. No intestinal metaplasia -stomach, gastric antral mucosa with mild chronic gastritis, compatible with reactive gastropathy No intestinal metaplasia No H-pylori Please review and advise the above information and advise as to next steps. Pt is on Plavix Thank you. Marisa Hu RN documented in this encounter [facility] 05-29-2024 Telephone encounter Note I agree may not be a bad idea to bring him in for an OV unless patient would prefer to proceed with the procedure. He will need to stop plavix for 5-7 days. He will need EGD/EUS radial and linear with FNB. Please schedule pt for an office visit with Dr. Braxton for Jul 06 3:30 if pt is agreeable. Thank you Marisa Hu RN [facility] 05-28-2024 Hospital Discharg e instructions Patient Education 05/28/2024 11:21:41 Kidney Stones, Ogmk-lg-Jequ Kidney Stones Kidney stones are rock-like masses that form inside of the kidneys. Kidneys are organs that make pee (urine). A kidney stone may move into other parts of the urinary tract, including: The tubes that connect the kidneys to the bladder (ureters). The bladder. The tube that carries urine out of the body (urethra). Kidney stones can cause very bad pain and can block the flow of pee. The stone usually leaves your body through your pee. A doctor may need to take out the stone. What are the causes? Kidney stones may be caused by: Too much calcium in the body. This may be caused by too much parathyroid hormone in the blood. Uric acid crystals in the bladder. The body makes uric acid when you eat certain foods. Narrowing of one or both of the ureters. A kidney blockage that you were born with. Past surgery on the kidney or the ureters. What increases the risk? You are more likely to develop this condition if: You have had a kidney stone in the past. Other people in your family have had kidney stones. You do not drink enough water. You eat a diet that is high in protein, salt (sodium), or sugar. You are very overweight (obese). What are the signs or symptoms? Symptoms of a kidney stone may include: Pain in the side of the belly, right below the ribs. Pain usually spreads to the groin. Needing to pee often or right away. Pain when peeing. Blood in your pee. Feeling like you may vomit (nauseous). Vomiting. Fever and chills. How is this treated? Treatment depends on the size, location, and makeup of the kidney stones. The stones will often pass out of the body when you pee. You may need to: Drink more fluid to help pass the stone. ?In some cases, you may be given fluids through an IV tube at the hospital. Take medicine for pain. Change your diet to help keep kidney stones from coming back. Sometimes, you may need: A procedure to break up kidney stones using a beam of light (laser) or shock waves. Surgery to remove the kidney stones. Follow these instructions at home: Medicines Take ahtm-act-jtmmcne and prescription medicines only as told by your doctor. Ask your doctor if the medicine prescribed to you requires you to avoid driving or using machinery. Eating and drinking Drink enough fluid to keep your pee pale yellow. ?You may be told to drink at least 8 10 glasses of water each day. This will help you pass the stone. If told by your doctor, change your diet. You may be told to: ?Limit how much salt you eat. ?Eat more fruits and vegetables. ?Limit how much meat, poultry, fish, and eggs you eat. Follow instructions from your doctor about what you may eat and drink. General instructions Collect pee samples as told by your doctor. You may need to collect a pee sample: ?24 hours after a stone comes out. ?8 12 weeks after a stone comes out, and every 6 12 months after that. Strain your pee every time you pee. Use the strainer that your doctor recommends. Do not throw out the stone. Keep it so that it can be tested by your doctor. Keep all follow-up visits. You may need X-rays and ultrasounds to make sure the stone has come out. How is this prevented? To prevent another kidney stone: Drink enough fluid to keep your pee pale yellow. This is the best way to prevent kidney stones. Eat healthy foods. Avoid certain foods as told by your doctor. You may be told to eat less protein. Stay at a healthy weight. Where to find more information National Kidney Foundation (NKF): kidney.org Urology Care Foundation (UCF): urologyhealth.org Contact a doctor if: You have pain that gets worse or does not get better with medicine. Get help right away if: You have a fever or chills. You get very bad pain. You get new pain in your belly. You faint. You cannot pee. This information is not intended to replace advice given to you by your health care provider. Make sure you discuss any questions you have with your health care provider. Document Revised: 03/08/2023 Document Reviewed: 03/08/2023 [employer]ee Patient Education 2023 [email or web address]. Follow Up Care 05/08/2024 09:15:41 With:ISRAEL RUFFIN, Shade Robison, URL Address: [address] [place] [address]- When:6 months Comments:KUB, ANAMARIA and PSA [facility] 05-28-2024 Note Urology Office/Clini c Note Chief Complaint referral from Linda- BPH w/o GERHARD HPI Staff Referral by Dr. Mckeon for BPH without LUTS. CT done 04/17/24 showed bilateral renal cortical hypodensities likely representing cysts and nonobstructing left nephrolithiasis. Dysuria: no Incomplete bladder emptying: no Hematuria: no Frequency: q2-3 hrs, slows down later in day due to lasix Urgency: no Nocturia: no Stream: normal Leaking: no Post void dripping: no Wearing pads/ Depends: no Urge incontinence: no Stress incontinence: no Incontinence without Sensory Awareness:no Abdominal pain: no Flank pain: no Sexual complaints: History of Present Illness Staff HPI reviewed and agree. Review of Systems PHQ Score Initial Depression Screen Score: 0 SCORE no fever, chills, malaise, myalgia. no rash/lesions. no chest pain, palpitations, or SOB. no abdominal pain, nausea, vomiting. no unilateral calf swelling, redness, pain Physical Exam Vitals & Measurements HR: 70(Peripheral) BP: 160/80 HT: 69 in HT: 176 cm WT: 110 kg WT: 242 lb BMI: 35.51 General: nontoxic, well-nourished, appears stated age Mouth: moist mucosa Lungs: normal respiratory effort Cardio: regular rate, good distal perfusion Abdomen: nondistended, no suprapubic distention or tenderness, no CVA tenderness Neurologic: Grossly normal Skin: No rashes or suspicious lesions Assessment/Plan [employer] referred by Dr. Jacob Mckeon for BPH without LUTS. Pt here with his today. 04/24/24 - BUN 9, Cr 1.06, eGFR >60 1. BPH without urinary obstruction (N40.0: Benign prostatic hyperplasia without lower urinary tract symptoms) 04/17/24 CT abd/pelvis w/ con - enlarged prostate gland measuring 4.1cm in diameter UA today without blood or infection Pt referred for BPH without LUTS. Pt denies weak stream, incomplete emptying or straining. Pt reports that sometimes he will have frequency but knows that this is due to the Lasix 20mg daily he takes. Discussed increasing fluids and timed voids with patient. Discussed CT report stating enlarged prostate, advised pt this is not very enlarged and due to him not having any symptoms, no need for medications/treatment at this time. Pt agreeable. Advised pt if he ever develops bothersome urination symptoms to call our office. -Increase fluids, avoid bladder irritants -Timed voids -Call our office for bothersome urination symptoms Ordered: Body Mass Index (BMI) documented 3008F Current tobacco non-user 1036F Depression Screening Negative 3352F E&M of New Patient High 60-74 Min 04137 Influenza immunization status assessed 1030F Medication list documented in medical record 1159F Most recent diastolic blood pressure <80 mm Hg 3078F Most recent systolic blood pressure >= 140 mm Hg 3077F Patient screen for fall risk: no falls in last year or 1 fall with no injury in last year 1101F PSA Total Review of all meds by a prescribing practitioner or clinical pharmacist documented in EHR 1160F Urnls Dip Stick Auto w/o Microscopy POC 31512 2. Kidney stone, (N20.0: Calculus of kidney)Kidney stone 04/17/24 CT abd/pelvis w/ con - nonobstructing L nephrolithiasis (no sizing noted on CT report, upon personal review 8x6mm) Discussed CT report with patient. Pt reports he had to have surgical intervention for a kidney stone in the 70s. Advised pt that it is difficult to tell size due to CT report and that I would be calling for an addendum to determine size but that it did look to be about 8mm. Advised pt that most likely if this stone was to move out of the kidney he would not be able to pass on his own. Pt denies stone pain or hematuria. Briefly discussed stone treatment options with patient including ESWL v laser litho. Pt would like to hold off on treatment at this time as he has other medical appointments coming up but is agreeable to monitor stone size and discuss treatment with MD in the future. Discussed stone prevention diet/fluids with patient. -Will call [facility] for addendum to CT report from 04/17/24 for stone sizing -KUB/ANAMARIA at [facility] in 6 months (reminder in place) -Increase fluids, add lemon/[place] pass to diet -Low animal protein, low salt diet -Consider metabolic workup in the future -Call our office or go to ER for severe flank pain, N/V, fever/chills, inability to urinate -F/U [address] Wood to review KUB/ANAMARIA Ordered: E&M of New Patient High 60-74 Min 47072 3. 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 Advised pt that it is difficult to tell sizing and there is no Bosniak classification noted on CT report. I will be calling for an addendum to obtain this information but did advise patient that the cysts seem to be quite large. (more content not included)... [facility] Comment on above: Result Comment: Elec tronically Signed By: Olivia Dumont.sinan\Date and Time Signed: 05/28/24 11:33 EDT 05-28-2024 Note Patient Education Urology Kidney Stones Kidney stones are rock-like masses that form inside of the kidneys. Kidneys are organs that make pee (urine). A kidney stone may move into other parts of the urinary tract, including: ??? The tubes that connect the kidneys to the bladder (ureters). ??? The bladder. ??? The tube that carries urine out of the body (urethra). Kidney stones can cause very bad pain and can block the flow of pee. The stone usually leaves your body through your pee. A doctor may need to take out the stone. What are the causes? Kidney stones may be caused by: ??? Too much calcium in the body. This may be caused by too much parathyroid hormone in the blood. ??? Uric acid crystals in the bladder. The body makes uric acid when you eat certain foods. ??? Narrowing of one or both of the ureters. ??? A kidney blockage that you were born with. ??? Past surgery on the kidney or the ureters. What increases the risk? You are more likely to develop this condition if: ??? You have had a kidney stone in the past. ??? Other people in your family have had kidney stones. ??? You do not drink enough water. ??? You eat a diet that is high in protein, salt (sodium), or sugar. ??? You are very overweight (obese). What are the signs or symptoms? Symptoms of a kidney stone may include: ??? Pain in the side of the belly, right below the ribs. Pain usually spreads to the groin. ??? Needing to pee often or right away. ??? Pain when peeing. ??? Blood in your pee. ??? Feeling like you may vomit (nauseous). ??? Vomiting. ??? Fever and chills. How is this treated? Treatment depends on the size, location, and makeup of the kidney stones. The stones will often pass out of the body when you pee. You may need to: ??? Drink more fluid to help pass the stone. ? In some cases, you may be given fluids through an IV tube at the hospital. ??? Take medicine for pain. ??? Change your diet to help keep kidney stones from coming back. Sometimes, you may need: ??? A procedure to break up kidney stones using a beam of light (laser) or shock waves. ??? Surgery to remove the kidney stones. Follow these instructions at home: Medicines ??? Take lzwv-vnh-sqmaats and prescription medicines only as told by your doctor. ??? Ask your doctor if the medicine prescribed to you requires you to avoid driving or using machinery. Eating and drinking ??? Drink enough fluid to keep your pee pale yellow. ? You may be told to drink at least 8?10 glasses of water each day. This will help you pass the stone. ??? If told by your doctor, change your diet. You may be told to: ? Limit how much salt you eat. ? Eat more fruits and vegetables. ? Limit how much meat, poultry, fish, and eggs you eat. ??? Follow instructions from your doctor about what you may eat and drink. General instructions ??? Collect pee samples as told by your doctor. You may need to collect a pee sample: ? 24 hours after a stone comes out. ? 8?12 weeks after a stone comes out, and every 6?12 months after that. ??? Strain your pee every time you pee. Use the strainer that your doctor recommends. ??? Do not throw out the stone. Keep it so that it can be tested by your doctor. ??? Keep all follow-up visits. You may need X-rays and ultrasounds to make sure the stone has come out. How is this prevented? To prevent another kidney stone: ??? Drink enough fluid to keep your pee pale yellow. This is the best way to prevent kidney stones. ??? Eat healthy foods. ??? Avoid certain foods as told by your doctor. You may be told to eat less protein. ??? Stay at a healthy weight. Where to find more information ??? National Kidney Foundation (NKF): kidney.org ??? Urology Care Foundation (UCF): urologyhealth.org Contact a doctor if: ??? You have pain that gets worse or does not get better with medicine. Get help right away if: ??? You have a fever or chills. ??? You get very bad pain. ??? You get new pain in your belly. ??? You faint. ??? You cannot pee. This information is not intended to replace advice given to you by your health care provider. Make sure you discuss any questions you have with your health care provider. Document Revised: 03/08/2023 Document Reviewed: 03/08/2023 Trial[employer]ee Patient Education ? 2023 [email or web address]. [facility] 05-27-2024 Telephone encounter Note Received referral per Dr. Mooney for subepithelial lesion of the mid esophagus. 05/01/24 EGD was preformed per Dr. Mooney. Z-line irregular, 2 columns of salmon colored mucosa noted Hiatal hernia noted measuring 5 cm Subepithelial lesion appreicated in the mid esophagus Erythema in the antrum, moderate patchy, otherwise normal stomach, biopsies taken to rule out h-pylori Normal duodenum Path as follows: -esophagus, GE junction with moderate chronic inflammation in lamina propria. No intestinal metaplasia -stomach, gastric antral mucosa with mild chronic gastritis, compatible with reactive gastropathy No intestinal metaplasia No H-pylori Please review and advise the above information and advise as to next steps. Pt is on Plavix Thank you. Marisa Hu RN [facility] 05-01-2024 Note Progress Note-Reyes hatch Patient: OSWALD OCHOA Age: 69 years Sex: Male : 1955 Associated Diagnoses: None Author: Jm RUFFIN, Randell Bernardo Postoperative Information Postoperative disposition: Postoperative disposition: To PACU. Optimetrix number: Optimetrix number [id number]. Anesthetic utilized: General. Health Status Allergies: Allergic Reactions (Selected) No Known Medication Allergies Physical Examination Vital Signs 05/01/2024 10:20 EDT Heart Rate Monitored 76 bpm Respiratory Rate Monitored 15 br/min Systolic Blood Pressure 142 mmHg HI Diastolic Blood Pressure 79 mmHg Mean Arterial Pressure, Cuff 100 mmHg SpO2 96 % 05/01/2024 10:11 EDT Heart Rate Monitored 85 bpm Respiratory Rate Monitored 14 br/min Systolic Blood Pressure 132 mmHg Diastolic Blood Pressure 80 mmHg SpO2 97 % 05/01/2024 10:10 EDT Heart Rate Monitored 86 bpm Respiratory Rate Monitored 14 br/min Systolic Blood Pressure 130 mmHg Diastolic Blood Pressure 80 mmHg Mean Arterial Pressure, Cuff 97 mmHg SpO2 97 % 05/01/2024 10:05 EDT Temperature Temporal Artery 36.6 DegC Heart Rate Monitored 84 bpm Respiratory Rate Monitored 13 br/min Systolic Blood Pressure 133 mmHg Diastolic Blood Pressure 73 mmHg Blood Pressure Location Left arm Mean Arterial Pressure, Cuff 93 mmHg SpO2 97 % Pain Assessment: Controlled. General: Awake, Appropriate. Respiratory: Adequate air exchange. Cardiovascular: Stable. Neurological Assessment Anesthetic outcome No anesthetic complications noted. Adequate pain relief. Review / Management Condition: Stable. Plan Transfer/Discharge: Transfer/Discharge Discharge when meets criteria ( To home ). [facility] Comment on above: Result Comment: Elec tronically Signed By: Randell Oneal MD\.br\Date and Time Signed: 05/01/24 16:04 EDT 05-01-2024 Evaluation + Plan note Extrac cayetano from: Title:ANES Post-operative Note---General Author: Randell Oneal MD Date:05/01/24 Plan Transfer/Discharge: Transfer/Discharge Discharge when meets criteria ( To home ). Extracted from: Title:ANES Pre-operative Note 2022 Author:Randell Kidd Date:05/01/24 Plan [place] [employer] Anesthesiologists (ASA) physical status classification: Class III. Anesthetic Preoperative Plan: Anesthesia General. [facility] 10-04-2024 Hospital Discharge instructions Patient Education 05/01/2024 10:17:08 Diverticulosis MAGR (CUSTOM) Diverticulosis Many people have small pouches in their colon called diverticulum. The diverticulum bulge outward through weak spots in the colon. You could have one or more of these pouches in the colon. The condition of having these pouches in the colon is called diverticulosis or diverticular disease. Diverticulosis is usually diagnosed by tests to evaluate something else. For example, you may have had a colonoscopy to screen for colon cancer when the diverticulosis was found. Most people with diverticulosis do not have any discomfort or problems. If symptoms develop, they may include mild cramps, bloating, and constipation. A complication of this condition is called diverticulitis. This is when the diverticulum become inflamed and infected. How to treat diverticulosis: Increasing the amount of fiber in the diet may reduce symptoms of diverticulosis and prevent complications such as diverticulitis (infected diverticuli). Fiber keeps stool soft and lowers pressure inside the colon so that bowel contents can move througheasily. You should eat 20 to 35 grams of fiber each day. The table below shows the amount of fiber in some foods that you can easily add to your diet. Adding fiber slowly may decrease the bloating and fullness sometimes felt with an immediate high fiber diet. The doctor may also recommend taking a fiber product such as Citrucel or Metamucil once a day. In the past people with diverticulosis were to avoid nuts, corn, and seeds. This has not been foundto be true. If you find that certain foods create cramping or bloating, avoid that food. Foods high in fiber include: Fresh fruits, fresh vegetables, legumes (beans), whole wheat bread, bran muffins or cereal, and nuts. See the table below for examples of high fiber foods. Remember, your goal is 20- 35 grams per day. Amount of fiber in different foods Food Serving Grams of fiber Fruits Apple (with skin) 1 medium apple 4.4 Banana 1 medium banana 3.1 Oranges 1 orange 3.1 Prunes 1 cup, pitted 12.4 Juices Apple, unsweetened, w/added ascorbic acid 1 cup 0.5 Grapefruit, white, canned, sweetened 1 cup 0.2 Grape, unsweetened, w/added ascorbic acid 1 cup 0.5 Taylor 1 cup 0.7 Vegetables Cooked Green beans 1 cup 4.0 Carrots 1/2 cup sliced 2.3 Peas 1 cup 8.8 Potato (baked, with skin) 1 medium potato 3.8 Raw [place] (with peel) 1 cucumber 1.5 Lettuce 1 cup shredded 0.5 Tomato 1 medium tomato 1.5 Spinach 1 cup 0.7 Legumes Baked beans, canned, no salt added 1 cup 13.9 Kidney beans, canned 1 cup 13.6 Ivan beans, canned 1 cup 11.6 Lentils, boiled 1 cup 15.6 Breads, pastas, flours Bran muffins 1 medium muffin 5.2 Oatmeal, cooked 1 cup 4.0 White bread 1 slice 0.6 Whole-wheat bread 1 slice 1.9 Pasta and rice, cooked Macaroni 1 cup 2.5 Rice, brown 1 cup 3.5 Rice, white 1 cup 0.6 Spaghetti (regular) 1 cup 2.5 Nuts Almonds 1/2 cup 8.7 Peanuts 1/2 cup 7.9 Chart from [facility] 2013. SEEK IMMEDIATE MEDICAL CARE IF: You develop abdominal (belly) pain. An oral temperature above _ 101 F__develops. Repeated vomiting occurs. Blood is being passed in stools (bright red or black tarry stools). You develop any bowel problems or changes which you have not had before. Extra Information: To learn how much fiber and other nutrients are in different foods, visit the [place] Department of Agriculture (USDA) National Nutrient Database at: http://www.nal.usda.gov/fnic/foodcomp/search/ Created using data from the USDA National Nutrient Database for Standard Reference. Available at http://www.nal.usda.gov/fnic/foodcomp/search/. Information adapted from: ExitCare Patient Information 2009 [employer]. [facility] 2012 http://www.[employer]/contents/dscbsmilrjgw-ncbepsy-tnfxri-the-basics 05/01/2024 10:17:07 Colonoscopy, Care After Surgery Himanshu (CUSTOM) Colonoscopy Care After Surgery Please read the instructions outlined below and refer to this sheet in the next few weeks. These discharge instructions provide you with general information on caring for yourself after you leave thespital. Your doctor may also give you specific instructions. While your treatment has been planned according to the most current medical practices available, unavoidable complications occasionally occur. If you have any problems or questions after discharge, please call your doctor. ACTIVITY You may resume your regular activity, but move at a slower pace for the next 24 hours. Take frequent rest periods for the next 24 hours. Walking will help get rid of the air and reduce the bloated feeling in your abdomen (belly). No driving for 24 hours (because of the anesthesia (medicine) used during the test). You may shower. Do not sign any important legal documents or operate any machinery for 24 hours (because of the anesthesia used during the test). NUTRITION Drink plenty of fluids. You may resume your normal diet as instructed by your doctor. Begin with a light meal and progress to your normal diet. Heavy or fried foods are harder to digestand may make you feel nauseated (sick to your stomach). Avoid alcoholic beverages for 24 hours or as instructed. MEDICATIONS You may resume your normal medications unless your doctor tells you otherwise. WHAT YOU CAN EXPECT TODAY Some feelings of bloating in the abdomen. Passage of more gas than usual. Spotting of blood in your stool or on the toilet paper. FOLLOW-UP Your doctor will discuss the results of your test with you. SEEK IMMEDIATE MEDICAL ATTENTION IF: There is more than a spotting of blood in your stool. There is abdominal distention (your abdomen is swollen). There is vomiting. You have a temperature over 101.5 F. There is abdominal pain or discomfort that is severe or gets worse throughout the day. Follow Up Care 04/16/2024 11:17:17 With:Vinicio RUFFIN, Alissa Nunez [facility], [facility] Address: [address] [place] [address], [address] [place] [address]- [phone] When: Unknown Comments:Office will call Date and Time of Follow-up Appt. [facility] 10-04-2024 NotePatient Education - Text Diverticulosis Many people have small pouches in their colon called diverticulum. The diverticulum bulge outward through weak spots in the colon. You could have one or more of these pouches in the colon. The condition of having these pouches in the colon is called diverticulosis or diverticular disease. Diverticulosis is usually diagnosed by tests to evaluate something else. For example, you may have had a colonoscopy to screen for colon cancer when the diverticulosis was found. Most people with diverticulosis do not have any discomfort or problems. If symptoms develop, they may include mild cramps, bloating, and constipation. A complication of this condition is called diverticulitis. This is when the diverticulum become inflamed and infected. How to treat diverticulosis: Increasing the amount of fiber in the diet may reduce symptoms of diverticulosis and prevent complications such as diverticulitis (infected diverticuli). Fiber keeps stool soft and lowers pressure inside the colon so that bowel contents can move througheasily. You should eat 20 to 35 grams of fiber each day. The table below shows the amount of fiber in some foods that you can easily add to your diet. Adding fiber slowly may decrease the bloating and fullness sometimes felt with an immediate high fiber diet. The doctor may also recommend taking a fiber product such as Citrucel or Metamucil once a day. In the past people with diverticulosis were to avoid nuts, corn, and seeds. This has not been foundto be true. If you find that certain foods create cramping or bloating, avoid that food. Foods high in fiber include: Fresh fruits, fresh vegetables, legumes (beans), whole wheat bread, bran muffins or cereal, and nuts. See the table below for examples of high fiber foods. Remember, your goal is 20- 35 grams per day. Amount of fiber in different foods Food Serving Grams of fiber Fruits Apple (with skin) 1 medium apple 4.4 Banana 1 medium banana 3.1 Oranges 1 orange 3.1 Prunes 1 cup, pitted 12.4 Juices Apple, unsweetened, w/added ascorbic acid 1 cup 0.5 Grapefruit, white, canned, sweetened 1 cup 0.2 Grape, unsweetened, w/added ascorbic acid 1 cup 0.5 Taylor 1 cup 0.7 Vegetables Cooked Green beans 1 cup 4.0 Carrots 1/2 cup sliced 2.3 Peas 1 cup 8.8 Potato (baked, with skin) 1 medium potato 3.8 Raw [place] (with peel) 1 cucumber 1.5 Lettuce 1 cup shredded 0.5 Tomato 1 medium tomato 1.5 Spinach 1 cup 0.7 Legumes Baked beans, canned, no salt added 1 cup 13.9 Kidney beans, canned 1 cup 13.6 Ivan beans, canned 1 cup 11.6 Lentils, boiled 1 cup 15.6 Breads, pastas, flours Bran muffins 1 medium muffin 5.2 Oatmeal, cooked 1 cup 4.0 White bread 1 slice 0.6 Whole-wheat bread 1 slice 1.9 Pasta and rice, cooked Macaroni 1 cup 2.5 Rice, brown 1 cup 3.5 Rice, white 1 cup 0.6 Spaghetti (regular) 1 cup 2.5 Nuts Almonds 1/2 cup 8.7 Peanuts 1/2 cup 7.9 Chart from [facility] 2013. SEEK IMMEDIATE MEDICAL CARE IF: You develop abdominal (belly) pain. An oral temperature above _ 101? F__develops. Repeated vomiting occurs. Blood is being passed in stools (bright red or black tarry stools). You develop any bowel problems or changes which you have not had before. Extra Information: To learn how much fiber and other nutrients are in different foods, visit the [place] Department of Agriculture (USDA) National Nutrient Database at: http://www.nal.usda.gov/fnic/foodcomp/search/ Created using data from the USDA National Nutrient Database for Standard Reference. Available at http://www.Bamatea.usda.gov/fnic/foodcomp/search/. Information adapted from: ExitCare? Patient Information ?2009 [employer]. [facility] 2012 http://www.[employer]/contents/vvsgyrzrqnws-paqmgbt-cadeah-the-basics Colonoscopy Care After Surgery Please read the instructions outlined below and refer to this sheet in the next few weeks. These discharge instructions provide you with general information on caring [facility] Your doctor may also give you specific instructions. While your treatment has been planned according to the most current medical practices available, unavoidable complications occasionally occur. If you have any problems or questions after discharge, please call your doctor. ACTIVITY You may resume your regular activity, but move at a slower pace for the next 24 hours. Take frequent rest periods for the next 24 hours. Walking will help get rid of the air and reduce the bloated feeling in your abdomen (belly). No driving for 24 hours (because of the anesthesia (medicine) used during the test). You may shower. Do not sign any important legal documents or operate any machinery for 24 hours (because of the anesthesia used during the test). NUTRITION Drink plenty of fluids. You may resume your normal diet as instructed by your doctor. Begin wit (more content not included)...[facility]10-04-2024 NoteProgress Note-Physician Patient: OSWALD OCHOA Age: 69 years Sex: Male : 1955 Associated Diagnoses: None Author: Randell Oneal MD Preoperative Information Anesthesia Preop Info: Time patient last ate or drank 05/01/2024 00:00:00. Anesthesia history: Patient history: None. Family history+: None. Informed consent: Signed by patient. Re-evaluation prior to induction: Initial evaluation reviewed: No significant change. Review of Systems Eye Ear/Nose/Mouth/Throat Respiratory: No shortness of breath, No cough. Cardiovascular: No chest pain, No palpitations, No syncope. Gastrointestinal: Heartburn. Musculoskeletal: Negative except as documented in history of present illness. Neurologic: Negative except as documented in history of present illness. Health Status Allergies: Allergic Reactions (Selected) No Known Medication Allergies, Allergies (1) Active Severity Reaction No Known Medication Allergies None Documented Current medications: (Selected) Inpatient Medications Ordered Lactated Ringers IV Genoveva 1000 mL 1,000 mL: 1,000 mL, IV, 100 mL/hr, Routine, Start date 05/01/24 9:49:00 EDT, 10 hour(s), Total volume (mL): 1,000, 110.9 kg, 2.31, m2 Sodium Chloride 0.9% IV Genoveva 1000 mL 1,000 mL: 1,000 mL, IV, 20 mL/hr, Routine, Start date 05/01/24 6:42:00 EDT, 50 hour(s), Total volume (mL): 1,000, 110.9 kg, 2.31, m2 Documented Medications Documented Cialis: 5 mg, Oral, q72hr, Refills(s) 0, [facility]: Oral, Daily, Refill(s) 0, Prophylaxis Lasix 20 mg Tab: mg tab(s), Oral, Daily, Refills(s) 0, diuretic/water pill Plavix 75 mg Tab: mg tab(s), Oral, Daily, Refills(s) 0, Blood Thinner aspirin 81 mg Oral EC Tab: mg tab(s), Oral, Daily, Refills(s) 0, Blood Thinner glipiZIDE 10 mg ER Tab: mg tab(s), Oral, Daily, Refills(s) 0, Blood glucose latanoprost 0.005% preservative-free ophthalmic solution: Eye-Right, Daily, Refill(s) 0, Ocular congestion lisinopril: 20 mg, Oral, Daily, Refills(s) 0, High blood pressure metoprolol succinate 100 mg ER Tab: mg tab(s), Oral, Daily, Refills(s) 0, High blood pressure omeprazole: 40 mg, Oral, Daily, Refills(s) 0, Control of stomach acid, Home Medications (10) Active aspirin 81 mg Oral EC Tab , Oral, Daily Cialis 5 mg, Oral, q72hr [facility] , Oral, Daily glipiZIDE 10 mg ER Tab , Oral, Daily Lasix 20 mg Tab , Oral, Daily latanoprost 0.005% preservative-free ophthalmic solution , Eye-Right, Daily lisinopril 20 mg, Oral, Daily metoprolol succinate 100 mg ER Tab , Oral, Daily omeprazole 40 mg, Oral, Daily Plavix 75 mg Tab , Oral, Daily , Medications (2) Active Scheduled: (0) Continuous: (2) Lactated Ringers 1,000 mL 1,000 mL, IV, 100 mL/hr Sodium Chloride 0.9% 1,000 mL 1,000 mL, IV, 20 mL/hr PRN: (0) Problem list: All Problems Chronic GERD / SNOMED CT 159191219 / Confirmed Hiatal hernia / SNOMED CT 859717524 / Confirmed Obesity due to excess calories / SNOMED CT 2458971757 / Confirmed, Active Problems (3) Chronic GERD Hiatal hernia Obesity due to excess calories , HTN, HLD, NIDDM, CAD s/p CABG x 5 2021 Histories Past Medical History: No active or resolved past medical history items have been selected or recorded. Family History: Heart disease Father Procedure history: Colonoscopy ([id number]). Social History Social & Psychosocial Habits Tobacco 05/01/2024 Tobacco Use: Never (less than 100 in l Smokeless tobacco use: Never . Physical Examination Vital Signs 05/01/2024 8:34 EDT Temperature Temporal Artery 36.6 DegC Heart Rate Monitored 69 bpm Respiratory Rate Monitored 16 br/min Systolic Blood Pressure 160 mmHg HI Diastolic Blood Pressure 90 mmHg HI Blood Pressure Location Left arm SpO2 95 % Vital Signs (last 24 hrs) Last Charted Temp Temporal 36.6 DegC (MAY 01 08:34) Heart Rate Monitored 69 bpm (MAY 01 08:34) Resp Rate 16 br/min (MAY 01 08:34) SBP H 160 mmHg (MAY 01 08:34) DBP H 90 mmHg (MAY 01 08:34) Weight 110.9 kg (MAY 01 08:14) BMI 37.18 (MAY 01:14) Measurements from flowsheet : Measurements 05/01/2024 8:14 EDT Height/Length Measured 172.7 cm Height/Length Dosing 172.7 cm Weight Dosing 110.9 kg BSA Measured 2.31 m2 Body Mass Index Measured 37.18 kg/m2 Weight Measured 110.9 kg Airway: Mallampati classification: II (soft palate, fauces, uvula visible). Respiratory: Lungs are clear to auscultation, Respirations are non-labored, adequate air exchange. Cardiovascular: Regular rhythm, No murmur. Review / Management Results review: No qualifying data available . Plan [place] [employer] Anesthesiologists (ASA) physical status classification: Class III. Anesthetic Preoperative Plan: Anesthesia General.[facility] Comment on above:Result Comment: Electronically Signed By: Jm RUFFIN, Randell Bernardo\.br\Date and Time Signed: 05/01/24 09:55 [id number] NoteCardiovascular Medicine [facility] SUBJECTIVE Oswald Ochoa is a 69 y.o. male here for follow-up. He has know HTN, CAD s/p CABG 01/03/2022, DM type II, HLD, BPH, former smoker. HPI Patient presents for yearly follow up. No cardiac complaints or concerns. No anginal chest pain. No shortness of breath. No lower extremity edema, orthopnea, or PND. Doing well overall. Patient Active Problem List Diagnosis Benign prostatic hyperplasia Coronary arteriosclerosis Dyspnea on exertion Erectile dysfunction Hyperlipidemia Hypertensive disorder Obesity Type 2 diabetes mellitus (CMS/HCC) H/O four vessel coronary artery bypass graft Diverticulitis of colon Pure hypercholesterolemia Past Medical History: Diagnosis Date Coronary artery disease Diabetes mellitus (CMS/HCC) Hyperlipidemia Hypertension No family history on file. Social History Tobacco Use Smoking status: Former Types: Cigarettes Substance Use Topics Alcohol use: Yes Comment: occasional No Known Allergies ROS 10 point ROS is performed and is negative unless otherwise specified in HPI OBJECTIVE Visit Vitals BP 153/78 Pulse 64 Ht 1.753 m (5' 9 ) Wt 110 kg (242 lb) SpO2 95% BMI 35.74 kg/m??? Smoking Status Former BSA 2.31 m??? Medications: Current Outpatient Medications: aspirin 81 mg EC tablet, TAKE 1 TABLET BY MOUTH EVERY DAY, Disp: 90 tablet, Rfl: 3 atorvastatin (Lipitor) 80 mg tablet, Take 1 tablet (80 mg) by mouth at bedtime., Disp: 90 tablet, Rfl: 3 clopidogrel (Plavix) 75 mg tablet, Take 1 tablet (75 mg) by mouth in the morning., Disp: [...] OR CHEW*, Disp: 90 tablet, Rfl: 3 eovkolrldorx-synp-djawjwye-folic acid (Multivitamin 50 Plus) tablet, Take 1 tablet by mouth in the morning., Disp: , Rfl: omeprazole (PriLOSEC) [address] capsule, Take 1 tablet by mouth in the morning., Disp: , Rfl: tadalafil (Cialis) 5 mg tablet, Take 5 mg by mouth in the morning., Disp: , Rfl: ezetimibe (Zetia) 10 mg tablet, Take 1 tablet (10 mg) by mouth in the morning. (Patient not taking: Reported on 04/27/2024), Disp: 90 tablet, Rfl: 3 furosemide (Lasix) 20 mg tablet, Take 1 tablet (20 mg) by mouth in the morning. (Patient not taking: Reported on 04/27/2024), Disp: 90 tablet, Rfl: 3 furosemide (Lasix) [...] are mildly elevated Patient was started on Lasix, which resolved symptoms He feels that his symptoms are likely [...] blood pressure is well controlled at home -Bp elevated today, but patient states that normally he is wit (more content not included)...[facility]04-09-2024 NoteCardiovascular Medicine [facility] SUBJECTIVE Oswald Ochoa is a 68 [...] Diagnosis Date Coronary artery disease Diabetes mellitus (CMS/HCC) Hyperlipidemia Hypertension No family history on file. [...] OR CHEW*, Disp: 90 tablet, Rfl: 3 gfdloxcqlxet-hqwe-jbgiiyfm-folic acid (Multivitamin 50 Plus) tablet, Take 1 [...] controlled at home -He (more content not included)...[facility]01-22-2024 Evaluation note* Encounter Date Diagnosis Assessment Notes Treatment Notes Treatment Clinical Notes Jul, Type 2 diabetes mellitus with hyperglycemia, unspecified whether intermission coordinator insulin use (ICD-10 - E11.65) [employer] Other 01-12-2023 Evaluation note* Encounter Date Diagnosis Assessment Notes Treatment Notes Treatment Clinical Notes Jul, Colitis (ICD-10 - K52.9) Jul, Coronary artery disease, unspecified vessel or lesion type, unspecified whether angina present, unspecified whether pilot point or transplanted heart (ICD-10 - I25.10) New medicine list and discussed symptoms with patient and Stable continue followup with his packager or packer and weigher Jul, Essential (primary) hypertension (ICD-10 - I10) Encouraged healthy diet and exercise and low-salt diet. Jul, Type 2 diabetes mellitus with hyperglycemia, unspecified whether fdc insulin use (ICD-10 - E11.65) Consider medication change after he resolves from present symptoms. [employer] Other 12-28-2022 Evaluation note* Encounter Date Diagnosis [...] condition Jun, Sore throat (ICD-10 - J02.9) [employer] Other 08-03-2022 Evaluation note* Encounter Date Diagnosis [...] (Suspected or Confirmed ) material was printed [employer] Other 06-29-2022 NoteMR#: [id number] I [facility] Pt. Name: Oswald Ochoa Admitted: 01/01/2022 [...] COURSE: 66-year-old male who presented to an surgical specialty center [facility] after having an episode of postprandial left-sided chest pain that lasted for about 2 hours. Chest pain was associated with shortness of breath and tingling of both upper extremities and generalized weakness. He was then admitted to [facility] for further evaluation and CT surgery [...] for him to see his PCP and packager or packer and weigher. Electronically Signed by: Jose R Guzman MD 01/24/2022 07:07 P Jose R Guzman MD I personally saw this patient on the day of the encounter, performed the south portion(s) of the service and participated in the management and confirm the resident's documentation. Please note there may be an additional personal documentation from me. Date Dict: 01/23/2022/12:20 P/Francisco Henley, SERVER SECURITY ADMINISTRATOR Date Trans: 01/23/2022 10:56 P/mmo [id number] note Future Appointments Appointment Date:05/01/2024 09:15:00 AM Scheduled Provider: Location:[facility] Appointment Type:Surgery FT [facility] Evaluation + Plan note Future Appointments Appointment Date:05/28/2024 10:00:00 AM Scheduled Provider:Olivia Dumont Location:[facility] Appointment Type:URO New Patient [facility] Evaluation + Plan note Future Appointments Appointment Date:11/20/2024 09:45:00 AM Scheduled Provider:Shade WOOD MD Location:[facility] Appointment Type:URO Office Visit Diagnostic Tests Pending * PSA Total 05/28/24 [facility] evaluation noteNo InformationNort [employer] Other Evaluation noteNo assessment information available [facility] Work Phone: Evaluation note* Diagnosis Subepithelial lesion of esophagus- Primary Hiatal hernia Diaphragmatic hernia without mention of obstruction or gangrene Gastroesophageal reflux disease, unspecified whether esophagitis present Diverticulosis Diverticulosis of colon (without mention of hemorrhage) documented in this encounter [facility] - [facility]orted* Type Description Date Medical History Hypertension Surgical History Open Heart 2021 Hospitalization History see above [employer] Other History general Narrative - Reported* Type Description Date Medical History coronary artery disease Medical History diverticulitis Medical History hyperlipidemia Medical History type 2 diabetes Medical History Hypertension Surgical History Open Heart 2021 Surgical History kidney stone Surgical History hemicolectomy Surgical History open cholecystectomy Surgical History right inguinal hernia Surgical History left ventral hernia Hospitalization History see above [employer] Other Hospital course Narrative No data available for this section [facility] Discharge instructions No data available for this section [facility] Progress note No data available for this section [facility] Reason for referral (narrative)* Outpatient Procedure (Routine) - New Request Specialty Diagnoses / Procedures Referred By Aviva t Referred To Contact [facility] Diagnoses Subepithelial lesion of esophagus Procedures EGD - THERAPEUTIC, EUS, OR TUBE INTERVENTIONS EGD INTRMURAL US NEEDLE ASPIRATE/[place] [address] [place] [address] [facility] [place] [address] [place], [place] [id number] Referral ID Status Reason Start Date Expiration Date Visits Requested Visits Authorized [id number] New Request Auto-Generat ed Referral 07/06/2024 07/06/2025 1 1 [facility] Summary Purpose Family History No Family History Records Found Relationship Condition Age at Onset Recorded Date/T santino father Heart disease Unknown Unknown mother Unknown Diabetes mellitus Unknown Advance Directives No Advanced Directives Records Found Advance Directive Response Recorded Date/ Time Advance [...] and content) DATE CREATED AUTHOR 01/25/2022 [facility] DATE CREATED AUTHOR AUTHOR'S ORGANIZ ATION 01/04/2023 [facility] DATE CREATED AUTHOR AUTHOR'S ORGANIZ ATION 07/13/2023 [facility] EPIC DATE CREATED AUTHOR AUTHOR'S ORGANIZ ATION 05/09/2024 [facility] DATE CREATED AUTHOR AUTHOR'S ORGANIZ ATION 05/11/2024 [facility] DATE CREATED AUTHOR AUTHOR'S ORGANIZ ATION 05/22/2024 [facility] DATE CREATED AUTHOR AUTHOR'S ORGANIZ ATION 05/30/2024 [facility] DATE CREATED AUTHOR AUTHOR'S ORGANIZ ATION 06/15/2024 [facility] DATE CREATED AUTHOR AUTHOR'S ORGANIZ ATION 07/09/2024 [facility] DATE CREATED AUTHOR AUTHOR'S ORGANIZ ATION 09/23/2024 [facility] [place] [facility] REASON FOR VISIT (unrecogniz ed section and content) Reason Comments Appointment Reason Comments Clinician To Clinician Consult Care Teams (unrecognized sec tion and content) Team Status: Active Member Role Status Dates Jacob Mckeon MD Primary Care Provider Active Team Status: Inactive Member Role Status Dates Jacob Mckeon MD Primary Care Provide r, Attending Provider Active Start: March 24, 2024 End: March 24, 2024 Collar Folder Operator Relationship Specialty Start Date End Date Jacob Mckeon MD [address] [place] [address] PCP - General Family Medicine 05/29/24 Collar Folder Operator Relationship Specialty Start Date End Date Jacob Mckeon MD [address] [place] [address] PCP - General Family Medicine 05/29/24 Goals (unrecognized section and content) Goals may be documented in a n alternate section Source Comments (unrecognize d section and content) In the event this informatio n is protected by the Federal Confidentiality of Alcohol and Drug Abuse Patient Records regulations: The Federal rules restrict any use of the information to criminally investigate or prosecute any alcohol or drug abuse patient.[facility] the event this information is protected by the Federal Confidentiality of Alcohol and Drug Abuse Patient Records regulations: The Federal rules restrict any use of the information to criminally investigate or prosecute any alcohol or drug abuse patient.[facility] FOR RECORDS PERTAINING TO PATIENTS WHO ARE [...] BE BASED ON THE PRIMARY CLINICAL RECORDS. [facility] [employer] [facility]. provides no warranty or guarantee of the accuracy or completeness of information in this document.
--- NOTE | 2024-10-01 10:05 | XR_ITS ---
The [address] [address] Patient Name: CORNEL GIL MRN: [id number] date: 1955 Sex: M Assigned Patient Location: LAB Current Patient Location: LAB Accession/Order Number: [id number] Exam Date: 10/01/2024 22:48 Report Date: 10/01/2024 22:49 At the request of: BEN WOOD MD Procedure: XR abdomen 1V KUB: CLINICAL INFORMATION: Kidney stone follow-up COMPARISON: CT abdomen and pelvis 06/03/2024 FINDINGS: 2 stones left kidney, largest stone measuring 4 mm. Phleboliths are seen within the pelvis. No stone involving the right kidney. No bowel obstruction or free air. XR/XR abdomen 1V IMPRESSION: LEFT NEPHROLITHIASIS. Impression dictated by: Conor Bell Jr. [email or web address]/01/2024 10:49 PM Dictation Location: [place] [address] Electronically authenticated by: [id number] Y Date: 10/01/2024 22:49
[2024-10-01 11:03] LABS: Prostate Specific Antigen Dx 0.78 ng/mL (<=4.00)
== END 2024-10-01 09:33 | disposition home or self-care (01) ==
LOC: LAB 09:32
PROVIDERS: PCP Family Medicine; Visit Provider Urology
DX: N40.0 Benign prostatic hyperplasia without lower urinary tract symptoms (principal); N20.0 Calculus of kidney
CPT/HCPCS: 36415; 74018; 76775; 84153

== ENCOUNTER 2024-11-27 10:58 | Outpatient (OUT) | payer MEDICARE, OTHER, SELFPAY ==
--- NOTE | 2024-11-27 11:06 | ECG_ITS ---
The [facility] Test Date: 2024-11-27 Pat Name: CORNEL GIL Department: Room: - Gender: Male Production Aide: : 1955 Requested By: BEN WOOD Order Number: [id number] Bakari MD: DINORA MALAVE M.D. Measurements Intervals [place] Rate: 56 P: 36 [place]: 156 QRS: 30 QRSD: 146 T: -2 QT: 398 QTc: 386 Interpretive Statements SINUS BRADYCARDIA RIGHT BUNDLE BRANCH BLOCK [120+ ms QRS DURATION, UPRIGHT V1, 40+ ms S IN I/aVL/V4/V5/V6] Abnormal ECG Compared to ECG 01/01/2022 11:55:07 Right bundle-branch block now present Electronically Signed On 11-27-2024 17:50:24 EDT by DINORA MALAVE M.D.
--- NOTE | 2024-11-27 11:44 | PM.PRESUREVA ---
History of Present Illness History of Present Illness Chief complaint: LEFT KIDNEY STONE Narrative: Patient presents for testing. Please see HPI from Dr. Sainz dated November 20, 2024. Review of Systems ROS Narrative ROS completed by Dr. Sainz November 20, 2024. Please note on my assessment of ROS, patient admits to dyspnea on exertion as well as chest pain on exertion. [facility] Medical History (Updated 11/27/24 @ 11:40 by Celia Burr NP) Colostomy in place ?Z93.3 - Colostomy status (ICD-10) Knee pain ?M25.569 - Pain in unspecified knee (ICD-10) Back pain ?M54.9 - Dorsalgia, unspecified (ICD-10) Arthritis ?M19.90 - Unspecified osteoarthritis, unspecified site (ICD-10) Snores ?R06.83 - Snoring (ICD-10) Sleep apnea ?G47.30 - Sleep apnea, unspecified (ICD-10) S/P extracorporeal shock wave therapy ?Z98.890 - Other specified postprocedural states (ICD-10) Fatigue ?R53.83 - Other fatigue (ICD-10) Diverticulosis ?K57.90 - Diverticulosis of intestine, part unspecified, without perforation or abscess without bleeding (ICD-10) Lower extremity edema ?R60.0 - Localized edema (ICD-10) Headache ?R51.9 - Headache, unspecified (ICD-10) Chest pain ?R07.9 - Chest pain, unspecified (ICD-10) Dyspnea on exertion ?R06.09 - Other forms of dyspnea (ICD-10) Diabetes ?E11.9 - Type 2 diabetes mellitus without complications (ICD-10) Hyperlipidemia ?E78.5 - Hyperlipidemia, unspecified (ICD-10) CAD (coronary artery disease) ?I25.10 - Atherosclerotic heart disease of [place] coronary artery without angina pectoris (ICD-10) Renal cyst ?N28.1 - Cyst of kidney, acquired (ICD-10) Erectile dysfunction ?N52.9 - Male erectile dysfunction, unspecified (ICD-10) Hiatal hernia ?K44.9 - Diaphragmatic hernia without obstruction or gangrene (ICD-10) GERD (gastroesophageal reflux disease) ?K21.9 - Gastro-esophageal reflux disease without esophagitis (ICD-10) BPH with obstruction/lower urinary tract symptoms ?N40.1 - Benign prostatic hyperplasia with lower urinary tract symptoms (ICD-10) ?N13.8 - Other obstructive and reflux uropathy (ICD-10) Kidney stones ?N20.0 - Calculus of kidney (ICD-10) Surgical History (Updated 11/27/24 @ 11:27 by Celia Burr NP) H/O hand surgery ?Z98.890 - Other specified postprocedural states (ICD-10) History of colon resection ?Z90.49 - Acquired absence of other specified parts of digestive tract (ICD-10) History of cholecystectomy ?Z90.49 - Acquired absence of other specified parts of digestive tract (ICD-10) History of hernia repair ?Z98.890 - Other specified postprocedural states (ICD-10) ?Z87.19 - Personal history of other diseases of the digestive system (ICD-10) S/P cataract extraction and insertion of intraocular lens ?Z98.49 - Cataract extraction status, unspecified eye (ICD-10) ?Z96.1 - Presence of intraocular lens (ICD-10) Hx of 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) ?Z95.1 - Presence of aortocoronary bypass graft (ICD-10) History of esophagogastroduodenoscopy (EGD) ?Z98.890 - Other specified postprocedural states (ICD-10) H/O colonoscopy ?Z98.890 - Other specified postprocedural states (ICD-10) Family History (Updated 11/27/24 @ 11:27 by Celia Burr NP) Other Family history of coronary artery disease Family history of diabetes mellitus Family history of heart disease Family history of hypertension Social History (Updated 11/27/24 @ 11:24 by Celia Burr NP) Within the past year, how often did you have a drink containing alcohol: monthly or less Smoking status: Former smoker Non-prescribed substance use: denies use Highest level of school completed/degree received: high school graduate Meds Home Medications and Allergies Home Medications ?Medication ?Instructions ?Recorded ?Confirmed ?Type ascorbic acid (vitamin C) 1,000 mg 1 g PO DAILY 11/27/24 11/27/24 History capsule aspirin 81 mg tablet,delayed 81 mg PO DAILY 11/27/24 11/27/24 History release atorvastatin 80 mg tablet 80 mg PO DAILY 11/27/24 11/27/24 History carvedilol 6.25 mg tablet 6.25 mg PO Q12H 11/27/24 11/27/24 History clopidogrel 75 mg tablet 75 mg PO DAILY 11/27/24 11/27/24 History furosemide 20 mg tablet 20 mg PO DAILY 11/27/24 11/27/24 History glipizide 5 mg tablet 5 mg PO DAILY 11/27/24 11/27/24 History lisinopril 40 mg tablet 40 mg PO DAILY 11/27/24 11/27/24 History omeprazole 40 mg capsule,delayed 40 mg PO DAILY 11/27/24 11/27/24 History release tadalafil 5 mg tablet 5 mg PO DAILY 11/27/24 11/27/24 History Allergies Allergy/AdvReac Type Severity Reaction Status Date / Time No Known Drug Allergies Allergy Verified 11/27/24 11:20 Exam Narrative Exam Narrative: Constitutional: Awake, alert, comfortable, well-appearing, nontoxic, interactive, vital signs as charted Head: Normocephalic, atraumatic Neck: Supple, normal appearance, normal range of motion, no meningeal signs, no lymphadenopathy Respiratory: No respiratory distress, breath sounds clear Cardiovascular: Regular rate and rhythm, strong and regular heart tones Abdomen: Nontender, normal bowel sounds, soft, no CVA tenderness Musculoskeletal: Normal gait, no swelling or edema Skin: No rashes or induration, no lesions, only visible skin inspected Neuro: No neurological deficits, normal sensation Psychiatric: Oriented ?3, normal affect Assessment and Plan Assessment and Plan (1) Kidney stones: Plan Left ESWL scheduled with Dr. Sainz December 10, 2024.
--- NOTE | 2024-11-27 12:07 | XR_ITS ---
[address] [address] Patient Name: CORNEL GIL MRN: [id number] date: 1955 Sex: M Assigned Patient Location: [facility] Current Patient Location: [facility] Accession/Order Number: [id number] Exam Date: 11/27/2024 12:07 Report Date: 11/27/2024 12:07 At the request of: BEN WOOD MD Procedure: XR chest 2V Chest 2 views CLINICAL HISTORY: Pre Op COMPARISON: Chest 12/31/2021 FINDINGS: Heart normal in size. Lungs are clear. No free air. XR/XR chest 2V IMPRESSION: NO ACUTE CARDIOPULMONARY ABNORMALITY. Impression dictated by: Conor Bell Jr., D.OJonathan 11/27/2024 12:07 PM Dictation Location: [place] [address] Electronically authenticated by: [id number] Y Date: 11/27/2024 12:07
[2024-11-27 12:10] LABS: Basophils Percent Auto 0.4 % (0.2-2.0); Eosinophils Absolute Auto 0.2 10^3/uL (0.0-0.7); Eosinophils Percent Auto 2.9 % (0.9-7.0); Hematocrit 40.8 % (42.0-54.0); Hemoglobin 14.3 g/dL (14.0-18.0); Immature Granulocytes Abs Auto 0.06 10^3/uL (0.00-0.03); Immature Granulocytes Pct Auto 1.1 % (0.0-0.5); Lymphocytes Absolute Auto 1.4 10^3/uL (1.2-3.8); Lymphocytes Percent Auto 24.5 % (20.5-60.0); Mean Corpuscular Hemoglobin 29.9 pg (25.9-34.0); Mean Corpuscular Volume 85.4 fL (80.0-94.0); Mean Platelet Volume 10.1 fL (9.5-13.5); Monocytes Absolute Auto 0.5 10^3/uL (0.3-0.8); Monocytes Percent Auto 8.9 % (1.7-12.0); Neutrophils Absolute Auto 3.5 10^3/uL (1.4-6.5); Neutrophils Percent Auto 62.2 % (43.0-75.0); Platelet Count 198 10^3/uL (150-450); Red Blood Count 4.78 10^6/uL (4.70-6.10); Red Cell Distribution Width 12.4 % (11.0-15.0); White Blood Count 5.6 10^3/uL (4.0-11.0)
[2024-11-27 12:20] LABS: Anion Gap 13.6; BUN Creatinine Ratio 6.5; Calcium 9.3 mg/dL (8.5-10.1); Carbon Dioxide 29.2 mmol/L (21.0-32.0); Chloride 102 mmol/L (98-107); Estimated GFR (African America >60 (>=60 mL/min/1.73m^2); Estimated GFR (Non-African Ame >60 (>=60 mL/min/1.73m^2); Glucose 149 mg/dL (74-106); Potassium 3.8 mmol/L (3.5-5.1); Sodium 141 mmol/L (136-145)
[2024-11-27 12:44] LABS: INR 0.98; Partial Thromboplastin Time 26.2 sec (22.3-36.2); Prothrombin Time 10.4 sec (9.0-11.6)
== END 2024-11-27 10:59 | disposition home or self-care (01) ==
LOC: PST 10:59
PROVIDERS: PCP Family Medicine; Visit Provider Urology
DX: Z01.810 Encounter for preprocedural cardiovascular examination (principal); Z01.812 Encounter for preprocedural laboratory examination; Z01.818 Encounter for other preprocedural examination; N20.0 Calculus of kidney
CPT/HCPCS: 36415; 71046; 80048; 85025; 85610; 85730; 93005; G0463

== ENCOUNTER 2024-12-10 07:20 | Day surgery (SDC) | payer MEDICARE, OTHER, SELFPAY ==
[2024-11-27 11:38] VITALS: BP 146/82; PULSE 64; TEMP 36.6; O2SAT 95; BMI 36.5
[2024-12-10] VITALS (11 sets, daily range): BP systolic 114–161; BP diastolic 62–76; PULSE 47–62; TEMP 35.8–36.6; O2SAT 92–98; BMI 36.6
--- OUTSIDE RECORDS SUMMARY | 2024-12-10 07:25 | XMS_ITS | CCD ---
Author Organization [facility] Care Team Providers Care Grocery Caddy Name Role Phone JACOB MCKEON Primary Care [...] Mckeon Unavailable DR CHRIS VITAL Consulting Unavailable MCKEON, DR JACOB Jimenez Primary [...] MARCELINO Attending Unavailable EDILBERTO, MARCELINO Admitting Unavailable MARCELINO STERN Attending Unavailable ZAHRAA, DR CHRIS Robison Consulting [...] LINDA, DR JACOB Jimenez Primary Care Unavailable JACOB MCKEON Primary Care Physician [phone] Mouchli, Mohamad A. Referring Unavailable Mouchli, Mohamad A. Attending Unavailable Mouchli, Mohamad A. Admitting Unavailable Mouchli, Mohamad A. Attending Unavailable Jacob Mckeon MD Primary Care Provider JACOB MCKEON Primary Care Unavailable Justus Braxton Attending Unavailable Mouchli, Mohamad A. Referring Unavailable Mouchli, Mohamad A. Attending Unavailable Mouchli, Mohamad A. Admitting Unavailable JACOB MCKEON Referring Unavailable Olivia Woodard Attending Unavailable Jacob Mckeon MD Primary Care Provider [phone] Jacob Mckeon MD Primary Care Provider [phone] Shade WOOD Attending Unavailable Mouchli, Mohamad A. Admitting Unavailable Mouchli, Mohamad A. Attending Unavailable Mouchli, Mohamad A. Referring Unavailable Shade WOOD Attending Unavailable Jacob Mckeon MD Primary Care Provider KEHINDE GONZALEZ Attending Unavailable KEHINDE GONZALEZ Referring Unavailable JR. SNYDER GEORGE C Attending Unavaila ble EDILBERTO, MARCELINO Attending Unavailable ALGHOTHANI, MOHAMAD Attending Unavailable Allergies Allergy Classification Reported Allergen(s) Allergy Type Date of Onset Reaction(s) Facility (1 source) patient allergy list reviewed by nurse or physicia Propensity to adverse reactions Comment:Done Reviews42 Other (1 source) Allergies Reconciled Propensity to adverse reactions Unknown Reviews42 Other (3 sources) No Known Medication Allergies; Translations: [No Known Medication Allergies] Propensity to adverse reactions (disorder) [facility] Repository Medications Current Medications Medication Drug Class(es) Dates Sig (Normalized) Sig (Original) Accu-Chek Guide - (1 source) Accu-Chek Guide - USE TO TEST ONCE A DAY *DX E11.65* for 90 Active [id number] 200 actuat albuterol 0.09 mg/actuat metered dose [...] aspirin 81 mg delayed release oral tablet (19 sources) Platelet Aggregation Inhibitor, Nonsteroidal Anti-inflammatory Drug Start: 10-02-2023 take 1 mg by mouth once daily aspirin 81 mg Oral EC Tab mg tab(s), Oral, Daily, Refills(s) 0, Blood Thinner Start Date: 04/16/24 Status: Ordered atorvastatin 80 mg oral tablet (9 sources) HMG-CoA Reductase Inhibitor Start: 04-22-2024 End: 04-22-2025 atorvastatin (LIPITOR) 80 mg tablet Take 80 mg by mouth. 04/22/2024 04/22/2025 Active carvedilol 6.25 mg oral tablet (2 sources) alpha-Adrenergic Taylor, beta-Adrenergic Taylor Start: 10-08-2024 carvedilol (Coreg) 6.25 MG tablet 6.25 mg 10/08/2024 Active ciprofloxacin 500 mg oral tablet (5 sources) Quinolone Antimicrobial Start: 08-09-2022 take 1 tablet by mouth every twelve hours Ciprofloxacin HCl 500 MG 1 tablet Orally every 12 hrs for 10 day(s) Jul, Active clopidogrel 75 mg oral tablet (20 sources) P2Y12 Platelet Inhibitor Start: 10-02-2023 End: 04-22-2025 clopidogrel (PLAVIX) 75 mg tablet Take 75 mg by mouth. 04/16/2024 04/22/2025 Active Plavix Not-Takin g/PRN Plavix Not-Takin g furosemide 20 mg oral tablet (8 sources) Loop Diuretic Start: 10-19-2024 take 1 tablet by mouth in the morning furosemide (Lasix) 20 MG tablet Take 20 mg by mouth in the morning. 10/19/2024 Active Start: 10-03-2023 take 1 mg by mouth once daily Lasix 20 mg Tab mg tab(s), Oral, Daily, Refills(s) 0, diuretic/water pill Start Date: 04/16/24 Status: Ordered glipiZIDE 10 mg oral tablet (20 sources) Sulfonylurea Start: 09-14-2024 take 1 tablet by mouth once daily glipiZIDE (Glucotrol) 10 MG tablet Take 10 mg by mouth Daily 09/14/2024 Active Start: 06-17-2024 take 1 tablet by mouth once gl ipiZIDE (GLUCOTROL) 10 mg tablet Take 1 tablet [...] December 31, 2023 3:39pm Start: 10-02-2023 End: 11-24-2024 take 1 tablet by mouth once daily Glipizide Discontinued 1 TAB PO Daily October 02, 2023 1:00am October 03, 2023 10:27pm FreeTextSig: TAKE 1 TABLET BY MOUTH EVERY DAY; Note: Source Status: Start; Refills: 3; Qty: 90 Tablet; Provider: Linda Flanagan ( ) glipiZIDE Active Inulin / Lactobacillus rhamnosus GG (3 sources) Start: 09-16-2018 [facility] Oral, Daily, Refill(s) 0, Prophylaxis Start Date: 09/16/18 Status: Ordered latanoprost 0.05 mg/ml ophthalmic solution (12 sources) Prostaglandin Analog Start: 09-16-[address] 0.005% preservative-free ophthalmic solution Eye-Right, Daily, Refill(s) 0, Ocular congestion Start Date: 09/16/18 Status: Ordered latanoprost (Xal atan) 0.005 % ophthalmic solution 1 (one) time each day at the same time. Active take 1 drop(s) into the eye(s) once daily at bedtime latanoprost (XALATAN) 0.005 % ophthalmic solution Use 1 Drop in both eyes daily at bedtime. Active lisinopril 40 mg oral tablet (18 sources) Angiotensin Converting Enzyme Inhibitor Start: 08-02-2022 lisinopril 40 MG tablet 04/26/2023 Active Start: 09-16-2018 take 20 mg by mouth once daily lisinopril 20 mg, Oral, Daily, Refills(s) 0, High blood pressure Start Date: 09/16/18 Status: Ordered 24 hr metoprolol succinate 100 mg extended release oral tablet (19 sources) beta-Adrenergic Taylor Start: 04-16-2024 take 1 mg by mouth once daily metoprolol succinate 100 mg ER Tab mg tab(s), Oral, Daily, Refills(s) 0, High blood pressure Start Date: 04/16/24 Status: Ordered Start: 10-02-2023 Metoprolol Tar trate Active MG PO October 02, 2023 1:00am FreeTextSig: Oral; Note: Source Status: Taking; Qty: 180 Tablet; Provider: Linda Flanagan ( ) Start: 04-10-2023 End: 11-24-2024 take 1 tablet by mouth every twenty-four hours in the morning metoprolol succinate XL (Toprol-XL) 100 MG 24 hr tablet TAKE 1 TABLET BY MOUTH IN THE MORNING *DO NOT CRUSH OR CHEW* 04/10/2023 11/24/2024 Discontinued (Discontinued by another clinician) Metoprolol Tartr ate 50 MG Oral for 90 Days Active Multiple Vitamin (multivitamin) capsule (7 sources) Multiple Vitamin (multivitamin) capsule Orally Active Multivitamins-Minerals- Lutein (MULTIVITAMIN 50 PLUS) tab (1 source) Multivitamins-Mi nerals -Lutein (MULTIVITAMIN 50 PLUS) tab Take 1 tablet by mouth every morning. Active omeprazole 40 mg delayed release oral capsule (20 sources) Proton Pump Inhibitor Start: 03-23-20 take 1 capsule by mouth once daily [...] Date: 09/16/18 Status: Ordered polyethylene glycol 3350 170 00 mg powder for oral solution (8 sources) Osmotic Laxative polyethylene gl ycol, PEG, 3350 (MiraLax) 17 g packet 1 (one) time each day at the same time. Active polyethylene gly col 3350 17 gram packet as needed. Active spironolactone 25 mg oral tablet (6 sources) Aldosterone Antagonist Start: 10-02-2023 take 25 mg by mouth twice daily Spironolactone Active 25 MG PO Twice daily October 02, 2023 1:00am FreeTextSig: twice a day; Note: Source Status: Taking; Provider: Linda Flanagan ( ) Spironolactone 2 5 MG twice a day Active tadalafil (19 sources) Phosphodiesterase 5 Inhibitor Start: 03-23-2024 take [...] Erectile dysfunction Start Date: 09/16/18 Status: Ordered Completed/Discontinued Medications Medication Drug Class(es) Dates Sig (Normalized) Sig (Original) 1 ml methylPREDNISolone acetate 40 mg/ml injection (4 sources) Corticosteroid Start: End: methylPREDNISolone acetate (DEPO-Medrol) injection 40 mg Start: 10-26-2024 End: 10-26-2024 40 mg, Intra-articular, Once PRN Procedure, Starting on Sat10/26/24 at 1112, For 1 dose predniSONE 20 mg oral tablet (5 sources) [...] Episodic Coronary atherosclerosis and other heart disease (20 sources) Coronary arteriosclerosis; Translations: [Atherosclerotic heart disease of [place] coronary artery without angina pectoris] Onset: 12-26-2021 Chronic Diabetes mellitus with complications (9 sources) Hyperglycemia due to type 2 diabetes mellitus; Translations: [Type 2 diabetes mellitus with hyperglycemia] Chronic Diabetes mellitus without complication (7 sources) Type 2 diabetes mellitus; Translations: [Type 2 diabetes mellitus without complications] Onset: 12-15-2021 02-04-2023 Chronic Disorders of lipid metabolism (20 sources) Hyperlipidemia; Translations: [Hyperlipidemia, unspecified] Onset: 12-10-2013 07-06-2024 Chronic Diverticulosis and diverticulitis (18 sources) Diverticulitis; Translations: [Diverticulitis of intestine, part unspecified, without perforation or abscess without bleeding] Onset: 06-23-2013 07-06-2024 Chronic Esophageal disorders (8 sources) Gastroesophageal reflux disease without esophagitis; Translations: [Gastro-esophageal reflux disease without esophagitis] Onset: 04-16-2024 Chronic Esophageal disorders (1 source) Lesion of esophagus; Translations: [Disease of esophagus, unspecified] 07-06-2024 Episodic Essential hypertension (20 sources) Essential hypertension; Translations: [Essential (primary) hypertension] Onset: 11-06-2013 Chronic Genitourinary congenital anomalies (1 source) Multiple congenital cysts of kidney; Translations: [Congenital multiple renal cysts] Onset: 05-28-2024 Chronic Hyperplasia of prostate (11 sources) Benign prostatic hypertrophy without outflow obstruction; Translations: [Hypertrophy (benign) of prostate without urinary obstruction and other lower urinary tract symptoms [LUTS]] Onset: 09-23-2015 Chronic Hypertension with complications and secondary hypertension (2 sources) Hypertensive heart disease without heart failure; Translations: [Hypertensive heart disease without heart failure] Onset: 10-08-2024 Chronic Immunizations and screening for infectious disease (6 sources) Contact with and (suspected) exposure to other viral communicable diseases; Translations: [Exposure to viral disease (event)] Episodic Noninfectious gastroenteritis (1 source) Noninfective gastroenteritis and colitis, unspecified Episodic Osteoarthritis (7 sources) Primary localized osteoarthrosis of multiple sites; Translations: [Generalized osteoarthrosis, involving multiple sites] Onset: 11-06-2013 10-26-2024 Chronic Other and unspecified benign neoplasm (1 [...] acquired] 07-06-2024 Episodic Other lower respiratory disease (1 source) Other forms of dyspnea; Translations: [OTHER FORMS OF DYSPNEA] Onset: 11-26-2022 Episodic Other lower respiratory disease (1 source) Shortness of breath; Translations: [SHORTNESS OF BREATH] Onset: 11-15-2022 Episodic Other lower respiratory disease (1 source) Dyspnea; Translations: [Other forms of dyspnea] Episodic Other male genital disorders (8 sources) Male erectile dysfunction, unspecified; Translations: [Erectile dysfunction (disorder)] Onset: 09-23-2015 02-04-2023 Chronic Other non-traumatic joint disorders (4 sources) Pain in left knee; Translations: [Pain in joint, lower leg] 10-23-2024 Episodic Other nutritional; endocrine; and metabolic disorders (6 [...] Chronic Other nutritional; endocrine; and metabolic disorders (8 sources) Obesity; Translations: [Other obesity due to excess calories] Onset: 12-26-2021 Chronic Other nutritional; endocrine; and metabolic disorders [...] Onset: 06-06-2017 Episodic Other lower respiratory disease (12 sources) Dyspnea on exertion; Translations: [Other forms of dyspnea] Onset: 12-15-2021 02-04-2023 Episodic Other non-traumatic joint disorders (1 source) [...] Test Name Value Interpretation Reference Range Facility Ambulatory Visit Summaryon 0 11-20-2024 Ambulatory Visit Summary Ambulatory Visit Summary OSWALD OCHOA :1955 Visit Date:11/20/2024 Ambulatory Visit Instructions Your Diagnosis Kidney stones BPH with urinary obstruction Multiple renal cysts Antiplatelet or antithrombotic long-term use Your Care Team Attending Physician - ISRAEL RUFFIN, Shade Robison Primary Care Physician - JACOB MCKEON MD This Is Your Medications List Contact prescribing physician if questions or concerns aspirin (aspirin 81 mg Oral EC Tab) carvedilol (carvedilol 6.25 mg Tab) clopidogrel (Plavix 75 mg Tab) furosemide (Lasix 20 mg Tab) glipiZIDE (glipiZIDE 10 mg ER Tab) latanoprost ophthalmic (latanoprost 0.005% preservative-free ophthalmic solution) lisinopril omeprazole tadalafil (Cialis) Procedures Performed Colonoscopy (05/01/2024), EGD - esophagogastroduodenoscopy (05/01/2024), Colonoscopy, Open heart surgery. Discharge Vitals Temperature (Temporal Artery) 37 ???C Heart Rate (Peripheral) 69 Respiratory Rate 16 Blood Pressure 131/86 Height 176 cm Height 69 in Weight 110 kg Weight 242.508 lb BMI 35.51 What to do next You Need to Schedule the Following Appointments Follow Up with ISRAEL RUFFIN, Shade Robison, [place] When: Where: [address] [place] [address]- Medications What How Much When Instructions Unchanged aspirin (aspirin 81 mg Oral EC Tab) By Mouth Every day Contact prescribing physician if questions or concerns Unchanged carvedilol (carvedilol 6.25 mg Tab) 1 Tablets Contact prescribing physician if questions or concerns [...] that you are currently receiving treatment for. Antiplatelet or antithrombotic long-term use BPH with urinary obstruction Chronic GERD Hiatal hernia Kidney stones Multiple renal cysts Obesity due to excess calories Patient Survey You may receive a survey via text or e-mail asking about your office visit. Please share your experience with us by completing your survey. We appreciate your feedback and thank you for choosing us for your care. Education Materials ESWL for Kidney Stones Extracorporeal shock wave lithotripsy (ESWL) is a treatment that can help break up kidney stones that are too large to pass on their own. This is a nonsurgical procedure that breaks up a kidney stone with shock waves. These shock waves pass through your body and focus on the kidney stone. They cause the kidney stone to break into smaller pieces (fragments) while it is still in the urinary tract. The fragments of stone can pass more easily out of your body in the urine. Tell a health care provider about: ??? Any allergies you have. ??? All medicines you are taking, including vitamins, herbs, eye drops, creams, and xleo-fwm-limsrfc medicines. ??? Any problems you or family members have had with anesthetic medicines. ??? Any bleeding problems you have. ??? Any surgeries you have had. ??? Any medical conditions you have. ??? Whether you are or may be . What are the risks? Your health care provider will talk with you about risks. These may include: ??? Infection. ??? Bleeding from the kidney. ??? Bruising of the kidney or skin. ??? Scarring of the kidney. This can lead to: ? Increased blood pressure. ? Poor kidney function. ? Return (recurrence) of kidney stones. ??? Damage to other structures or organs. This may include the liver, colon, spleen, or pancreas. ??? Blockage (obstruction) of the tube that carries urine from the kidney to the bladder (ureter). ??? Failure of the kidney stone to break into fragments. What happens before the procedure? When to stop eating and drinking Follow instructions from your health care provider about what you may eat and drink. These may include: ??? 8 hours before your procedure ? Stop eating most foods. Do not eat meat, fried foods, or fatty foods. ? Eat only light foods, such as toast or crackers. ? All liquids are okay except energy drin (more content not included)... Normal [facility] Ambulatory Visit Summary Ambulatory Visit Summary OSWALD OCHOA :1955 Visit Date:11/20/2024 Ambulatory Visit Instructions Your Diagnosis Kidney stones BPH with urinary obstruction Multiple renal cysts Antiplatelet or antithrombotic long-term use Your Care Team Attending Physician - Shade WOOD MD Primary Care Physician - JACOB MCKEON MD This Is Your Medications List Contact prescribing physician if questions or concerns aspirin (aspirin 81 mg Oral EC Tab) carvedilol (carvedilol 6.25 mg Tab) clopidogrel (Plavix 75 mg Tab) furosemide (Lasix 20 mg Tab) glipiZIDE (glipiZIDE 10 mg ER Tab) latanoprost ophthalmic (latanoprost 0.005% preservative-free ophthalmic solution) lisinopril omeprazole tadalafil (Cialis) Procedures Performed Colonoscopy (05/01/2024), EGD - esophagogastroduodenoscopy (05/01/2024), Colonoscopy, Open heart surgery. Discharge Vitals Temperature (Temporal Artery) 37 ???C Heart Rate (Peripheral) 69 Respiratory Rate 16 Blood Pressure 131/86 Height 176 cm Height 69 in Weight 110 kg Weight 242.508 lb BMI 35.51 What to do next You Need to Schedule the Following Appointments Follow Up with ISRAEL RUFFIN, Shade R, URL When: Where: [address] [place] [id number]- Medications What How Much When Instructions Unchanged aspirin (aspirin 81 mg Oral EC Tab) By Mouth Every day Contact prescribing physician if questions or concerns Unchanged carvedilol (carvedilol 6.25 mg Tab) 1 Tablets Contact prescribing physician if questions or concerns [...] that you are currently receiving treatment for. Antiplatelet or antithrombotic long-term use BPH with urinary obstruction Chronic GERD Hiatal hernia Kidney stones Multiple renal cysts Obesity due to excess calories Patient Survey You may receive a survey via text or e-mail asking about your office visit. Please share your experience with us by completing your survey. We appreciate your feedback and thank you for choosing us for your care. Education Materials ESWL for Kidney Stones Extracorporeal shock wave lithotripsy (ESWL) is a treatment that can help break up kidney stones that are too large to pass on their own. This is a nonsurgical procedure that breaks up a kidney stone with shock waves. These shock waves pass through your body and focus on the kidney stone. They cause the kidney stone to break into smaller pieces (fragments) while it is still in the urinary tract. The fragments of stone can pass more easily out of your body in the urine. Tell a health care provider about: ??? Any allergies you have. ??? All medicines you are taking, including vitamins, herbs, eye drops, creams, and gyhd-lcw-odwuydc medicines. ??? Any problems you or family members have had with anesthetic medicines. ??? Any bleeding problems you have. ??? Any surgeries you have had. ??? Any medical conditions you have. ??? Whether you are or may be . What are the risks? Your health care provider will talk with you about risks. These may include: ??? Infection. ??? Bleeding from the kidney. ??? Bruising of the kidney or skin. ??? Scarring of the kidney. This can lead to: ? Increased blood pressure. ? Poor kidney function. ? Return (recurrence) of kidney stones. ??? Damage to other structures or organs. This may include the liver, colon, spleen, or pancreas. ??? Blockage (obstruction) of the tube that carries urine from the kidney to the bladder (ureter). ??? Failure of the kidney stone to break into fragments. What happens before the procedure? When to stop eating and drinking Follow instructions from your health care provider about what you may eat and drink. These may include: ??? 8 hours before your procedure ? Stop eating most foods. Do not eat meat, fried foods, or fatty foods. ? Eat only light foods, such as toast or crackers. ? All liquids are okay except energy drin (more content not included)... Normal [facility] Urology Office/Clinic Noteon 11-20-2024 Urology Office/Clinic Note Urology Office/Clinic Note Chief Complaint F/u with PSA, KUB and ANAMARIA HPI Staff 6 mth f/u w/ANAMARIA & KUB Dx: BPH without urinary obstruction, Kidney stone, Multiple renal cyst KUB & ANAMARIA done 10/01/24 IPSS score is 15 today. Incomplete emptying, weak stream and straining less than half the time. Frequency more than half the time. Nocturia x2. Pt states that he has had flank pain off and on both sides and it is a sharp sticking pain. Last felt a few days ago on the left side. Denies any visible blood at any time. History of Present Illness Tests reviewed: reviewed UA, PSA, ANAMARIA, KUB. I have reviewed the previous health record information and history for this patient from [place] [facility] I have reviewed and verified the staff HPI to be accurate for this encounter. There have been no associated fever, chills, flank pain, or blood in the urine. Denies any urinary infections since last encounter. Review of Systems PHQ Score Initial Depression Screen Score: 0 SCORE ROS - Provider Constitutional: denies weight loss, denies hot flashes. Eyes: denies eye problems. Gastrointestinal: denies nausea, denies vomiting. Cardiovascular: denies chest pain or angina. Integumentary: no dryness Musculoskeletal: denies musculoskeletal symptoms. ENMT: denies otolaryngeal symptoms. Respiratory: no shortness of breath. Heme/Lymph: denies easy bleeding tendency, denies easy bruising tendency. Psychiatric: no confusion, no anxiety. Genitourinary: See HPI. Physical Exam Vitals & Measurements T: 37 ???C(Temporal Artery) HR: 69(Peripheral) RR: 16 BP: 131/86 HT: 176 cm HT: 69 in WT: 242.508 lb WT: 110 kg BMI: 35.51 General Appearance: alert, no distress, well nourished, well developed male. Assessment/Plan Saw AG 05/28/24 as a new pt due to referral from Dr. Jacob Mckeon for BPH wo LUTS. Pt accompanied by today. 1. Kidney stones (N20.0: Calculus of kidney) Surgical mgmt 1977 to treat R sided stone. CT AP w con 04/17/24 - 7.2 mm LLP calculus. KUB 10/01/24 [facility] - 2 stones left kidney, largest 4 mm. ANAMARIA 10/01/24 [facility] - 8 mm stone R kidney. No hydro. Discussed management options including extracorporeal shockwave lithotripsy vs ureteroscopy with laser lithotripsy/stone basket extraction possible stent. Risks/benefits of each were discussed including but not limited to: ESWL- bleeding, hematoma, pain, infection, inability to break up the stone, ureteral obstruction, cardiac arrhythmias, damage to surrounding structures and need for additional procedures; ureteroscopy - bleeding, pain, infection, damage to surrounding structures, ureteral perforation, stricture, inability to treat the stone and need for additional procedures. If a stent is placed, pt understands this is not permanent and needs to be removed or exchanged within 3 months to prevent encrustation, infection, permanent renal damage and need for more invasive procedures. He wishes to proceed with ESWL. -Will schedule L ESWL under general anes. Risks as above 2. BPH with urinary obstruction (N40.1: Benign prostatic hyperplasia with lower urinary tract symptoms) PSA 06/11/15 - 0.55 08/25/18 - 0.95 10/01/24 - 0.78 CT AP w con 04/17/24 - enlarged prostate gland measuring 4.1 cm in diameter. UA today negative for blood or infection. IPSS 15. Not taking any BPH meds. Nocturia 2x. Feels he empties. Attributes frequency to diuretic, also drinks a high intake of water. Encouraged pt to limit fluids 2 hrs prior to bedtime to improve nocturia. Overall not bothered by urination. 3. 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 Largest measures 3.9 x 3.1 cm. ANAMARIA 10/01/24 [facility] - cysts not mentioned. Further w/up not indicated. 4. 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 CABG x 5. Hx of open heart surgery. Elevated risk for perio complications, Plavix and asa will need held prior to ESWL. cardiology will need to be involved with this. Follow-up With When Contact Information ISRAEL RUFFIN, Shade Robison, [place] [address]- Additional Instructions: Schedule L ESWL Patient Education ESWL for Kidney Stones IBrandy, personally scribed for Dr. Wood on 11/20/2024 11:15:45. . Documentation recorded by the scribeBrandy, accurately reflects the services(s) I performed and decisions made by me. Authenticated by Dr. Wood on 11/20/2024 11:18:23. Problem List/Past Medical History Ongoing Antiplatelet or antithrombotic long-term use BPH with urinary obstruction Chronic GERD Hiatal hernia Kidney stones Multiple renal cysts Obesity due to excess calories Historical No qualifying data Procedure/Surgical History Colonoscopy (05/01/2024), EGD - esophagogastroduodenoscopy (05/01/2024), Colonosc (more content not included)... Normal [facility] Comment on above: Result Comment: Elec tronically Signed By: Shade WOOD MD\.br\Date and Time Signed: 11/20/24 11:18 EDT\.br\Electronically Co-Signed By: Brandy Stearns.br\Date and Time Co-Signed: 11/20/24 11:15 EDT No Panel Informationon 10-26 Kehinde Gonzalez, YE 11:14 AM L Inj/Asp: L knee on 10/26/2024 11:12 AM Indications: pain Details: 21 G needle, anterolateral approach Medications: 40 mg methylPREDNISolone acetate 40 MG/ML Outcome: tolerated well, no immediate complications Site was cleaned with isopropyl alcohol Procedure, treatment alternatives, risks and benefits explained, specific risks discussed. Consent was given by the patient. [facility] XR Knee - left 1 or 2 Viewso n 10-26-2024 Imaging Result: 10/26/2024: AP and lateral views of left knee showed severe varus deformity with near nbac-an-ybjf articulation to the medial joint line, flattening of the articular surfaces to the medial joint line lateral joint line and patellofemoral joint. Subchondral sclerosis was noted at the medial joint line surfaces as well as the lateral joint line and patellofemoral joint. Marginal osteophytic formation was noted tricompartmentally. There is no evidence of fracture or dislocation. 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 He would like [facility] Order faxed to [facility]. Will monitor All results in chart for review. Normal [facility] 37on 10-08-2024 37 *We will switch meto prolol to carvedilol. Normal [facility] Office Visiton 10-08-2024 Follow-up visit [id number] Oswald Ochoa 1955 M Date Provider Department Center 10/08/2024 [facility] No family history on file Level of Service:28215 [place] OFFICE/OUTPATIENT ESTABLISHED MOD MDM 30 MIN Reason for Visit and Comments: Coronary Artery Disease [187] Normal [facility] CNOVon 07-06-2024 CNOV Office Visit (GASTNO ) OSWALD OCHOA ([id number]) 1955 Date Time Provider Department 07/06/24 3:30 PM JUSTUS BRAXTON During your visit today, we recorded the following information about you: Pulse Blood pressure Weight Height 56/minute 163/66 110.6 kg 1.727 m Justus Braxton MD 07/06/2024 10:31 PM Signed Patient presents with: Clinician To Clinician Consult HPI: sOwald Ochoa, 69 year old male with past [...] MORNING *DO NOT CRUSH OR CHEW* - Mpbqdpuglxxbd-Pfgjnaet-Oahfp n (MULTIVITAMIN 50 PLUS) tab; Take 1 tablet by mouth every morning. - omeprazole (PRILOSEC) 40 mg capsule; Take 40 mg by mouth once daily. - polyethylene glycol (more content not included)... Normal [facility] HISTORY PHYSICALon HISTORY PHYSICAL HNO ID: [id number] Author: JUSTUS BRAXTON MD Service: ? Author [...] MORNING *DO NOT CRUSH OR CHEW* - Rrphhajgkqcvh-Awrlgilc-Smrkc n (MULTIVITAMIN 50 PLUS) tab; Take 1 [...] status pos (more content not included)... Normal [facility] Ambulatory Visit Summaryon 1 Ambulatory Visit Summary [...] RUFFIN, Shade Robison Where: [facility] [address] Medications What How Much When Instructions Unchanged [...] you for choosing us for your care. [facility] Ambulatory Visit Summary Ambulatory Visit Summary OSWALD OCHOA :1955 Visit Date:05/28/2024 Ambulatory Visit Instructions Your Diagnosis BPH (benign prostatic hyperplasia) Your Care Team Attending Physician - Olivia [...] RUFFIN, Shade Robison Where: [facility] [place] [id number]- Medications What How Much When Instructions Unchanged [...] for choosing us for your care. Giuseppe [facility] CNPNon 05-27-2024 CNPN Telephone (GASTNO) OSWALD OCHOA ([id number]) 1955 M Date Time Provider Department 05/27/24 JUSTUS BRATXON During your visit today, we recorded the [...] OV with Dr. Braxton on 07/06/24 at [facility] at 3:30 pm per message below. Allergies As of Date: 05/27/2024 (Not on File) Date Reviewed: Never Reviewed Reason for Visit: Appointment [186] Problem List As Of Date: 05/27/2024 (None) Encounter Status:Closed by ANGEL RODRIGUEZ on 05/29/24 Normal [facility] CT Chest w/ Contraston 05-22 CT Chest [...] FINAL REPORT Dictated: 05/22/2024 12:36 pm Signer Araman RUFFIN Signed (Electronic Signature): 05/22/2024 12:36 pm Signed by: Signer Armaan RUFFIN Transcribed by: WEI Technologist: WEIR Technical Comments GFR (mL/min/1/73m2) >60 Contrast: Isovue 300 Contrast amount in ml's: 100 Normal [facility] CHEMISTRYOrdered By: SYSTEM SYSTEM on 05-21-2024 Creatinine [Mass/Vol] 0.9 mg/dL Normal 0.5 - 1.3 mg/dL Remisol Chem eGFR 92 mL/min/1.73 m2 Normal >=59mL/min /1.73 m2 Remisol Chem Creatinineon 05-21-2024 Creatinine [Mass/Vol] 0.9 mg/dL Normal 0.5-1.3 [facility] Comment on above: Performed By: #### 2 [id number] #### [facility] [address] [place] [address] eGFRon 05-21-2024 eGFR 92 mL/min/1.73 m2 Normal >=59 [facility] Comment on above: Performed By: #### 1 [id number] #### [facility] [address] [place] [address] Reminderson 05-08-2024 Reminders Reminders From: Elizabeth Rangel To: [facility] - Reminders/Recalls; Sent: 05/08/2024 13:47:56 EDT Show up: 04/01/2029 13:47:00 EDT Subject: Ambulatory Reminder- colonoscopy 5 year recall Due Date/Time: 05/01/2029 13:47:00 EDT Reminder/Recall Colonoscopy Dr Mooney- 05/01/2024 5 year recall Normal [facility] Result Letter Officeon 05-08 Result Letter Office Result Letter Office May 08, 2024 OSWALD Mcconnell[address] [place] [address] : 1955 Below is a summary of [...] letter prior to your next due date. [facility] [phone] Normal [facility] Surgical Pathology Reporton 05-07-2024 Surgical Pathology Report [facility] [address] [place] [address]- Surgical Pathology Report Collected Date/Time: 05/01/2024 09:47 [...] is entirely submitted in one cassette. (DC) DC:[facility] Surgical Pathology Report Collected Date/Time: 05/01/2024 09:47 EDT Pathologist: Gerber RUFFIN PhD, Mely Crockett Received Date/Time: 05/01/2024 11:17 EDT Alissa Mooney MD, MD, Mohamad A. Microscopic Description The use of one or more reagents in the above tests is regulated as an analyte specific reagent (ASR). The test or tests are ordered following initial H&E microscopic examination. The performance characteristics were determined by the Laboratory [facility]. They have not been cleared or approved by the US Food and Drug Administration. The FDA has determined that such clearance or approval is not necessary. These tests are used for clinical purposes. They should not be regarded as investigational or for research. Appropriate positive and negative controls are performed and are acceptable. Normal [facility] Comment on above: Performed By: #### 4 [id number] #### [facility] [address] [place] [address] Main OR Intraoperative Recor don 05-05-2024 Main OR Intraoperative Record Main OR Intraoperative Record IntraOp Document Type FT Summary Primary Physician: Alissa Mooney MD Finalized Date/Time: 05/05/24 08:07:07 Pt. Name: OSWALD OCHOA/Sex: 1955 Male Med Rec #: [id number] Physician: Alissa Mooney MD Financial #: [id number] Pt. Type: O Room/Bed: / Admit/Disch: 05/01/24 [...] Anne RN, Joyce Sanchez Role Performed Anesthesiologist Employment Evaluator/Case Manager - Primary Staff - Other Film Casting Operator Time In 05/01/24 09:39:00 05/01/24 09:39:00 05/01/24 09:59:00 Time Out 05/01/24 09:45:00 05/01/24 10:04:00 05/01/24 10:04:00 Procedure EGD AND COLONOSCOPY(.) EGD AND COLONOSCOPY(.) EGD AND COLONOSCOPY(.) Comments Dr. Oneal supervising help in room case Last Modified By: Dayana RN, Hamilton Anne [...] Coulter, Given Participants Hamilton Anne RN, Gunner RODRIGES, Vinicio Fuentes MD, Alissa Nunez, Jm RUFFIN, [...] 09:43:05 Post-Care Samuel (more content not included)... Normal [facility] Provider Letteron 05-05-2024 Provider Letter Provider Letter May 05, 2024 OSWALD [address]nell[address] [place] [address] : 1955 Dear Oswald, We have been trying to reach you with no success. It is important that you return our call regarding further orders upon receiving this letter. Also, at the time of your call, please provide us with your current information. Thank you for your prompt attention to this matter. Sincerely, [facility] Normal [facility] Discharge Instructionson Discharge Instructions Discharge Instructions OSWALD OCHOA :1955 Visit Date:05/01/2024 Inpatient Discharge Instructions Your Care Team Admitting Physician - Alissa Mooney MD. Referring Physician - Alissa Mooney MD. Reason [...] 10 mg ER Tab) lactobacillus rhamnosus GG ([facility] [facility]) latanoprost ophthalmic (latanoprost 0.005% preservative-free ophthalmic solution) [...] Follow Up with Vinicio RUFFIN, PRIYANKA Kuhn, [facility] When: Comments: Office will call Date and Time of Follow-up Appt. Where: [address] [place] [address], [address] [place] [phone] Medications What How Much When Instructions Next Dose Unchanged aspirin (aspirin 81 mg Oral EC Tab) By Mouth Every day Unchanged clopidogrel (Plavix 75 mg Tab) By Mouth Every day Unchanged furosemide (Lasix 20 mg Tab) By Mouth Every day Unchanged glipiZIDE (glipiZIDE 10 mg ER Tab) By Mouth Every day Unchanged lactobacillus rhamnosus GG ([facility] [employer]) By Mouth Every day Unchanged latanoprost ophthalmic [...] unsweetened, w/added ascorbic acid 1 cup 0.5 Marshall 1 cup 0.7 Vegetables Cooked Green beans 1 cup 4.0 Carrots 1/2 cup sliced (more content not included)... Normal [facility] Comment on above: Result Comment: Elec [...] GERD and polyps -EGD and colonoscopy Normal [facility] Main OR PACU II Recordon Main OR PACU II Record Main OR PACU II Record PACU Phase II Document Type FT Summary Primary Physician: Alissa Mooney MD Finalized Date/Time: 05/01/24 13:09:40 Pt. Name: DON OSWALD Peter/Sex: 1955 Male Med Rec #: [id number] Physician: Alissa Mooney MD Financial #: [id number] Pt. Type: O Room/Bed: / Admit/Disch: 05/01/24 [...] 13:04 Tova Buck RN 05/01/24 13:09 Normal [facility] Main OR Preoperative Recordo n 05-01-2024 Main OR Preoperative Record Main OR Preoperative Record Holding Area Document Type FT Summary Primary Physician: Alissa Mooney MD Finalized Date/Time: 05/01/24 08:37:09 Pt. Name: OSWALD OCHOA/Sex: 1955 Male Med Rec #: [id number] Physician: Alissa Mooney MD Financial #: [id number] Pt. Type: O Room/Bed: / Admit/Disch: 05/01/24 [...] By: Makayla Yi RN 05/01/24 08:37 Normal [facility] Operative Reporton Operative Report Operative Report Patient: OSWALD OCHOA Age: 69 years Sex: Male : 1955 Associated Diagnoses: None Author: Alissa Mooney MD Pre-Procedure Procedure Date 05/01/2024 10:06:00 . Procedure Type: Colonoscopy with removal of tumor(s), polyp(s), or other lesion(s) by cold snare technique. Procedure provider Performed by Alissa Mooney MD. Current history and physical Documented on chart. Colonoscopy ([id number]).. Past Medical History No active or resolved past medical history items have been selected or recorded.. Family History Heart disease Father . Procedure History Colonoscopy ([id number]).. Colorectal neoplasm risk assessment High risk Previous [...] mg, Oral, q72hr, Refills(s) 0, Erectile dysfunction [facility]: Oral, Daily, Refill(s) 0, Prophylaxis [...] 3. Diverticulosis throughout the whole colon 4. Allt-np-hozl surgical anastomosis in the sigmoid colon 5. Internal hemorrhoids 6. Normal terminal ileum Images Procedure images: Rec1_hd_video_2023__T09_ 03_28_216.jpg Rec1_hd_video_4__T09_ 04_03_345.jpg Rec1_hd_video_4__04T09_ 04_12_293.jpg Rec1_hd_video_4__T09_ 07_05_495.jpg Rec1_hd_video_4__04T09_ 07_55_123.jpg Rec1_hd_video_4_10_04T09_ 08_11_417.jpg Rec1_hd_video_4__T09_ 10_06_002.jpg Rec1_hd_video_4__T09_ 10_18_585.jpg Rec1_hd_video_4__T09_ 10_40_884.jpg Rec1_hd_video_4__T09_ 11_25_590.jpg . Post-Procedure Complications: none. Estimated blood [...] hours. Education and Follow-up: Counseled: Patient, Family. [facility] Comment on above: Result Comment: Elec tronically Signed By: Vinicio RUFFIN, Alissa Cuello.br\Date and Time Signed: 05/01/24 10:08 EDT Other Comment: Sadia ludwig Attachment - attachment storage system not supported [id number] Can be viewed in source system Missing Attachment - attachment storage system not supported [id number] Can be viewed in source system Missing Attachment - attachment storage system not supported [id number] Can be viewed in source system Missing Attachment - attachment storage system not supported [id number] Can be viewed in source system Missing Attachment - attachment storage system not supported [id number] Can be viewed in source system Missing Attachment - attachment storage system not supported [id number] Can be viewed in source system Missing Attachment - attachment storage system not supported [id number] Can be viewed in source system Missing Attachment - attachment storage system not supported [id number] Can be viewed in source system Missing Attachment - attachment storage system not supported [id number] Can be viewed in source system Missing Attachment - attachment storage system not supported [id number] Can be viewed in source system Operative [...] mg, Oral, q72hr, Refills(s) 0, Erectile dysfunction [facility]: Oral, Daily, Refill(s) 0, Prophylaxis [...] Normal duodenum. Images Procedure images: Rec_hd_video_2023__08_ 57_34_985.jpg Rec_hd_video__08_ 57_42_599.jpg Rec_hd_video__08_ 58_09_674.jpg Rec_hd_video_2023__08_ 59_13_679.jpg Rec1_hd_video_2023__09_ 00_15_135.jpg Rec1_hd_video_2023___ 00_33_589.jpg . Post-Procedure Complications: none. Estimated blood loss: minimal. Specimens: sent to pathology. Devices/ implants: none left in place. 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 Hiatal hernia Gastropathy Recommendations: -Resume previous diet -Resume home medications -Await pathology results, follow in GI clinic in 1-2 after discharge Normal [facility] Comment on above: Result Comment: Elec tronically Signed By: Vinicio RUFFIN, Alissa Nunez\.br\Date and Time Signed: 05/01/24 10:06 EDT Other Comment: Sadia ludwig Attachment - attachment storage system not supported [id number] Can be viewed in source system Missing Attachment - attachment storage system not supported [id number] Can be viewed in source system Missing Attachment - attachment storage system not supported [id number] Can be viewed in source system Missing Attachment - attachment storage system not supported [id number] Can be viewed in source system Missing Attachment - attachment storage system not supported [id number] Can be viewed in source system Missing Attachment - attachment storage system not supported [id number] Can be viewed in source system Office Visiton 04-27-2024 Follow-up visit [id number] Oswald Ochoa 1955 M Date Provider Department Center 04/27/2024 3848-ALISSA AGLINDO [facility] No family history on file Level of Service:15705 [place] OFFICE/OUTPATIENT ESTABLISHED LOW MDM 20 MIN Normal [facility] Ambulatory Visit Summaryon 0 04-16-2024 Ambulatory Visit Summary Ambulatory Visit Summary OSWALD OCHOA :1955 Visit Date:04/16/2024 Ambulatory Visit Instructions Your Diagnosis History of colon polyps Hiatal hernia Chronic GERD Obesity due to excess calories Your Care Team Attending Physician - Vinicio RUFFIN, Alissa Nunez Primary Care Physician - JACOB MCKEON MD This Is Your Medications List Contact prescribing physician if questions or concerns aspirin (aspirin 81 mg Oral EC Tab) clopidogrel (Plavix 75 mg Tab) furosemide (Lasix 20 mg Tab) glipiZIDE (glipiZIDE 10 mg ER Tab) lactobacillus rhamnosus GG ([employer]) latanoprost ophthalmic (latanoprost 0.005% preservative-free ophthalmic solution) lisinopril metoprolol (metoprolol succinate 100 mg ER Tab) omeprazole tadalafil (Cialis) Procedures Performed Colonoscopy. Discharge Vitals Heart Rate (Peripheral) 51 Blood Pressure 162/89 Height 172.7 cm Height 68 in Weight 110.9 kg Weight 243.98 lb BMI 37.18 What to do next Scheduled Follow-Up Appointments Saturday 9:15 AM EDT Where: [facility] Medications What How Much When [...] questions or concerns Unchanged lactobacillus rhamnosus GG ([employer]) By Mouth Every day Contact prescribing physician [...] for choosing us for your care. Normal [facility] Gastroenterology Office/Clin ic Noteon 04-16-2024 Gastroenterology [...] Oral, Daily Cialis, 5 mg, Oral, q72hr [facility], Oral, Daily glipiZIDE 10 mg ER Tab, [...] influenza virus vaccine, inactivated 05/04/2016 Recorded Normal [facility] Comment on above: Result Comment: Elec tronically Signed By: Vinicio RUFFIN, Alissa Nunez\.br\Date and Time Signed: 04/16/24 10:43 EDT PROF CHEM 8 (BAS METB)on Anion gap [Moles/Vol] 16.3 mmol/L Normal [facility] Comment on above: Performed By: #### B MP ####[facility] [address] [place] [address]Dr. Mely Mayes Calcium [Mass/Vol] 9.4 mg/dL Normal 8.5-10.1 [facility] Comment on above: Performed By: #### B MP ####[facility] [address] [place] [address]Dr. Mely Mayes Chloride [Moles/Vol] 98 mmol/L Normal 98-107 [facility] Comment on above: Performed By: #### B MP ####[facility] [address] [place] [address]Dr. Mely Mayes CO2 [Moles/Vol] 26.0 mmol/L Normal 21.0-32.0 [facility] Comment on above: Performed By: #### B MP ####[facility] [address] [place] [address]Dr. Mely Mayes Creatinine [Mass/Vol] 1.36 mg/dL Critically high 0.70-1.30 [facility] Comment on above: Performed By: #### B MP ####[facility] [address] [place] [address]Dr. Mely Mayes EGFR-AF CHADIAN >60 Normal >=60 [facility] Comment on above: Performed By: #### B MP ####[facility] [address] [place], [place] [address]Dr. Mely Mayes EGFR-NON AF CHADIAN 52 mL/min/1.73m2 Critically low >=60 [facility] Comment on above: Performed By: #### B MP ####[facility] [address] [place] [address]Dr. Mely Mayes Glucose [Mass/Vol] 211 mg/dL Critically high 74-106 [facility] Comment on above: Performed By: #### B MP ####[facility] [address] [place] [address]Dr. Leigh Anndayana Mayes Potassium [Moles/Vol] 4.3 mmol/L Normal 3.5-5.1 [facility] Comment on above: Performed By: #### B MP ####[facility] [address] [place], [place] [address]Dr. Mely Mayes Sodium [Moles/Vol] 136 mmol/L Normal 136-145 [facility] Comment on above: Performed By: #### B MP ####[facility] [address] [place], [place] [address]Dr. Leigh Anndayana Mayes Urea nitrogen [Mass/Vol] 10.0 mg/dL Normal 7.0-18.0 [facility] Comment on above: Performed By: #### B MP ####[facility] [address] [place], [place] [address]Em. Mely Mayes Urea nitrogen/Creatinin e [Mass ratio] 7.4 mg/mg Normal [facility] Comment on above: Performed By: #### B MP ####[facility] [address] [place], [place] [address]Mz. Mely Mayes ECHOCARDIO M/2D COMPLETEon 0 11-20-2022 ECHOCARDIO M/2D COMPLETE Patient: OSWALD OCHOA Exam Date: 11/20/2022 : 1955 Gender:M Ordering : MARCELINO STERN [facility] Admission #: [id number] Family : Order #: [id number] CLICK HERE TO VIEW EXAM ECHOCARDIOGRAM REPORT [...] Mcdaniel M.D. on 11/21/2022 at 08:25 Normal [facility] NM STRESS/REST MULTIon 11-20 NM STRESS/REST MULTI Patient: OSWALD OCHOA Exam Date: 11/20/2022 : 1955 Gender:M Ordering : MARCELINO STERN [facility] Admission #: [id number] Family : Order #: [id number] CLICK HERE TO VIEW EXAM RADIOLOGY REPORT [...] Vital M.D. on 11/22/2022 at 16:12 Normal [facility] BNPon 11-12-2022 Natriuretic peptide B (Bld) [Mass/Vol] 207.0 pg/mL Normal <=900.0 [facility] Comment on above: Performed By: #### L IPID, BNP, CMP #### [facility] [address] [place] [address] Dr. Mely Mayes LIPID PROFILEon 11-12-2022 CHOL-HDL RATIO NORM SEE BELOW Normal [facility] Comment on above: Result Comment: 3.3 - 4.4 LOW RISK 4.4 - 7.1 AVERAGE RISK 7.1 - 11.0 MODERATE RISK >11.0 HIGH RISK Performed By: #### L IPID, BNP, CMP #### [facility] [address] [place] [address] [address] Mely Mayes Cholesterol [Mass/Vol] 166 mg/dL Normal <=200 [facility] Comment on above: Performed By: #### L IPID, BNP, CMP #### [facility] [address] [place] [address] [address] Mely Mayes Cholesterol in HDL [Mass/Vol] 38 mg/dL Critically low 40-60 [facility] Comment on above: Performed By: #### L IPID, BNP, CMP #### [facility] [address] [place] [address] [address] Mely Mayes Cholesterol in LDL [Mass/Vol] 106.2 mg/dL Normal [facility] Comment on above: Performed By: #### L IPID, BNP, CMP #### [facility] [address] [place] [address] [address] Mely Mayes Cholesterol.total/ Cholesterol in HDL [Mass ratio] 4.4 {ratio} Normal [facility] Comment on above: Performed By: #### L IPID, BNP, CMP #### [facility] [address] [place] [address] [address] Mely Mayes HDL NORMAL > or = 60 mg/dl - LO W CARDIOVASCULAR RISK <40 mg/dl - HIGH CARDIOVASCULAR RISK Normal [facility] Comment on above: Performed By: #### L IPID, BNP, CMP #### [facility] [address] [place] [address] [address] Mely Mayes LDL CALC NORMAL SEE BELOW Normal [facility] Comment on above: Result Comment: <100 mg/dl OPTIMAL 100 - 129 mg/dl NEAR OR ABOVE OPTIMAL 130 - 159 mg/dl BORDERLINE HIGH 160 - 189 mg/dl HIGH >190 mg/dl VERY HIGH Performed By: #### L IPID, BNP, CMP #### [facility] [address] [place] [address] [address] Mely Mayes Triglyceride [Mass/Vol] 109 mg/dL Normal <=150 [facility] Comment on above: Performed By: #### L IPID, BNP, CMP #### [facility] [address] [place] [address] [address] Mely Mayes VLDL CALC 21.8 mg/dL Normal [facility] Comment on above: Performed By: #### L IPID, BNP, CMP #### [facility] [address] [place] [address] [address] Mely Mayes PROF 14(COMP METB)on 023 Albumin [Mass/Vol] 4.1 g/dL Normal 3.4-5.0 [facility] Comment on above: Performed By: #### L IPID, BNP, CMP #### [facility] Laboratory [address] [address] [address] Mely Mayes Albumin/Globulin [Mass ratio] 1.1 {ratio} Normal [facility] Comment on above: Performed By: #### L IPID, BNP, CMP #### [facility] Laboratory [address] [address] [address] Mely Mayes ALP [Catalytic activity/Vol] 79 U/L Normal 46-116 [facility] Comment on above: Performed By: #### L IPID, BNP, CMP #### [facility] Laboratory [address] [address] [address] Mely Mayes ALT [Catalytic activity/Vol] 36 U/L Normal 16-63 [facility] Comment on above: Performed By: #### L IPID, BNP, CMP #### [facility] Laboratory [address] [address] [address] Mely Mayes Anion gap [Moles/Vol] 13.7 mmol/L Normal [facility] Comment on above: Performed By: #### L IPID, BNP, CMP #### [facility] Laboratory [address] [address] [address] Mely Mayes AST [Catalytic activity/Vol] 18 U/L Normal 15-37 [facility] Comment on above: Performed By: #### L IPID, BNP, CMP #### [facility] Laboratory [address] [place] [address] Dr. Mely Mayes Bilirubin [Mass/Vol] 0.6 mg/dL Normal 0.2-1.0 [facility] Comment on above: Performed By: #### L IPID, BNP, CMP #### [facility] Laboratory [address] [place] [address] Dr. Mely Mayes Calcium [Mass/Vol] 10.3 mg/dL Critically high 8.5-10.1 [facility] Comment on above: Performed By: #### L IPID, BNP, CMP #### [facility] Laboratory [address] [place] [address] Dr. Mely Mayes Chloride [Moles/Vol] 101 mmol/L Normal 98-107 [facility] Comment on above: Performed By: #### L IPID, BNP, CMP #### [facility] Laboratory [address] [place] [address] Dr. Mely Mayes CO2 [Moles/Vol] 27.5 mmol/L Normal 21.0-32.0 [facility] Comment on above: Performed By: #### L IPID, BNP, CMP #### [facility] Laboratory [address] [place] [address] Dr. Mely Mayes Creatinine [Mass/Vol] 1.17 mg/dL Normal 0.70-1.30 [facility] Comment on above: Performed By: #### L IPID, BNP, CMP #### [facility] Laboratory [address] [place] [address] Dr. Mely Mayes EGFR-AF CHADIAN >60 Normal >=60 [facility] Comment on above: Performed By: #### L IPID, BNP, CMP #### [facility] Laboratory [address] [place] [address] Dr. Mely Mayes EGFR-NON AF CHADIAN >60 Normal >=60 [facility] Comment on above: Performed By: #### L IPID, BNP, CMP #### [facility] Laboratory [address] [place] [address] Dr. Mely Mayes Globulin (S) [Mass/Vol] 3.7 g/dL Normal [facility] Comment on above: Performed By: #### L IPID, BNP, CMP #### [facility] Laboratory [address] [place] [address] Dr. Mely Mayes Glucose [Mass/Vol] 168 mg/dL Critically high 74-106 [facility] Comment on above: Performed By: #### L IPID, BNP, CMP #### [facility] Laboratory [address] [place] [address] Dr. Mely Mayes Potassium [Moles/Vol] 4.2 mmol/L Normal 3.5-5.1 [facility] Comment on above: Performed By: #### L IPID, BNP, CMP #### [facility] Laboratory [address] [place] [address] Dr. Mely Mayes Protein [Mass/Vol] 7.8 g/dL Normal 6.4-8.2 [facility] Comment on above: Performed By: #### L IPID, BNP, CMP #### [facility] Laboratory [address] [place] [address] Dr. Mely Mayes Sodium [Moles/Vol] 138 mmol/L Normal 136-145 [facility] Comment on above: Performed By: #### L IPID, BNP, CMP #### [facility] Laboratory [address] [place] [address] Dr. Mely Mayes Urea nitrogen [Mass/Vol] 10.0 mg/dL Normal 7.0-18.0 [facility] Comment on above: Performed By: #### L IPID, BNP, CMP #### [facility] Laboratory [address] [place] [address] Dr. Mely Mayes Urea nitrogen/Creatinin e [Mass ratio] 8.5 mg/mg Normal [facility] Comment on above: Performed By: #### L IPID, BNP, CMP #### [facility] Laboratory [address] [place] [address] Dr. Mely Mayes PROF CHEM 8 (BAS METB)on Anion gap [Moles/Vol] 14.7 mmol/L Normal [facility] Comment on above: Performed By: #### B MP ####[facility] [address] [address]Dr. Mely Mayes Calcium [Mass/Vol] 9.4 mg/dL Normal 8.5-10.1 [facility] Comment on above: Performed By: #### B MP ####[facility] [address] [address]Dr. Mely Mayes Chloride [Moles/Vol] 99 mmol/L Normal 98-107 [facility] Comment on above: Performed By: #### B MP ####[facility] [address] [address]Dr. Mely Mayes CO2 [Moles/Vol] 23.5 mmol/L Normal 21.0-32.0 [facility] Comment on above: Performed By: #### B MP ####[facility] [address] [place], [place] [address]Dr. Mely Mayes Creatinine [Mass/Vol] 1.53 mg/dL Critically high 0.70-1.30 [facility] Comment on above: Performed By: #### B MP ####[facility] [address] [place], [place] [address]Dr. Mely Gerber EGFR-AF CHADIAN 55 mL/min/1.73m2 Critically low >=60 [facility] Comment on above: Performed By: #### B MP ####[facility] [address] [place], [place] [address]Dr. Mely Gerber EGFR-NON AF CHADIAN 45 mL/min/1.73m2 Critically low >=60 [facility] Comment on above: Performed By: #### B MP ####[facility] [address] [place], [place] [address]Dr. Mely Mayes Glucose [Mass/Vol] 258 mg/dL Critically high 74-106 [facility] Comment on above: Performed By: #### B MP ####[facility] [address] [place], [place] [address]Dr. Mely Mayes Potassium [Moles/Vol] 4.2 mmol/L Normal 3.5-5.1 [facility] Comment on above: Performed By: #### B MP ####[facility] [address] [address]DrJonathan Mayes Sodium [Moles/Vol] 133 mmol/L Critically low 136-145 [facility] Comment on above: Performed By: #### B MP ####[facility] [address] [address]Dr. Mely Mayes Urea nitrogen [Mass/Vol] 11.0 mg/dL Normal 7.0-18.0 [facility] Comment on above: Performed By: #### B MP ####[facility] [address] [address]Dr. Mely Mayes Urea nitrogen/Creatinin e [Mass ratio] 7.2 mg/mg Normal [facility] Comment on above: Performed By: #### B MP ####[facility] [address] [address]DrJonathan Mayes CREATININEon 08-24-2022 Creatinine [Mass/Vol] 1.02 mg/dL Normal 0.70-1.30 [facility] Comment on above: Performed By: #### C GRAEME #### [facility] Laboratory [address] [place] [address] Dr. Mely Mayes EGFR-AF CHADIAN >60 Normal >=60 [facility] Comment on above: Performed By: #### C GRAEME #### [facility] Laboratory [address] [place] [address] Dr. Mely Mayes EGFR-NON AF CHADIAN >60 Normal >=60 [facility] Comment on above: Performed By: #### C GRAEME #### [facility] Laboratory [address] [place] [address] ABD/PELV W CONon 08-24-19 CT ABD/PELV W CON EXAMINATION: CT ABD/ [...] by: CHRIS VITAL Date: 2022-08-24 09:22 Normal [facility] GLYCOHEMOGLOBIN A1Con 2022 ADA RECOMMENDATION SEE BELOW Normal [facility] Comment on above: Result Comment: ADA RECOMMENDED LIMIT 4.0 - 6.0 ADA THERAPEUTIC TARGET < 7.0 ACTION SUGGESTED > 7.0 Performed By: #### D ATA1C #### [facility] Laboratory [address] [place], [place] [address] Dr. Mely Mayes Glucose [Mass/Vol] 163 mg/dL Normal [facility] Comment on above: Performed By: #### D ATA1C #### [facility] Laboratory [address] [place], [place] [address] Dr. Mely Mayes HbA1c (Bld) [Mass fraction] 7.3 % Critically high 4.5-6.2 [facility] Comment on above: Performed By: #### D ATA1C #### [facility] Laboratory [address] [address] [address] Mely Mayes COVID/FLU/RSV RT-PCRon 07-25 SARS-CoV-2 (COVID-19) RNA ESTEBAN+probe Ql (Unsp spec) Negative [facility] [employer] Other COVID/FLU/RSV RT-PCR Negative [employer] [facility] [employer] Other Quick Strepon 07-25-2022 S. pyogenes Org specific cx Ql (Throat) Negative [facility] [employer] Other Quick Strep [facility] [employer] Other PROF CHEM 8 (BAS METB)on Anion gap [Moles/Vol] 11.0 mmol/L Normal [facility] Comment on above: Performed By: #### B MP ####[facility] [address] [place], [place] [address]Dr. Mely Mayes Calcium [Mass/Vol] 9.2 mg/dL Normal 8.5-10.1 [facility] Comment on above: Performed By: #### B MP ####[facility] [address] [address]Dr. Mely Mayes Chloride [Moles/Vol] 102 mmol/L Normal 98-107 [facility] Comment on above: Performed By: #### B MP ####[facility] [address] [address]Dr. Mely Mayes CO2 [Moles/Vol] 27.7 mmol/L Normal 21.0-32.0 [facility] Comment on above: Performed By: #### B MP ####[facility] [address] [place], [place] [address]DrJonathan Mayes Creatinine [Mass/Vol] 1.00 mg/dL Normal 0.70-1.30 [facility] Comment on above: Performed By: #### B MP ####[facility] [address] [place], [place] [address]DrJonathan Mayes EGFR-AF CHADIAN >60 Normal >=60 [facility] Comment on above: Performed By: #### B MP ####[facility] [address] [id number]. Mely Mayes EGFR-NON AF CHADIAN >60 Normal >=60 [facility] Comment on above: Performed By: #### B MP ####[facility] [address] [address]Dr. Mely Mayes Glucose [Mass/Vol] 139 mg/dL Critically high 74-106 T [facility] Comment on above: Performed By: #### B MP ####[facility] [address] [address]Dr. Mely Mayes Potassium [Moles/Vol] 3.7 mmol/L Normal 3.5-5.1 [facility] Comment on above: Performed By: #### B MP ####[facility] [address] [address]Dr. Mely Mayes Sodium [Moles/Vol] 137 mmol/L Normal 136-145 [facility] Comment on above: Performed By: #### B MP ####[facility] [address] [id number]. Mely Mayes Urea nitrogen [Mass/Vol] 10.0 mg/dL Normal 7.0-18.0 [facility] Comment on above: Performed By: #### B MP ####[facility] [address] [address]DrJonathan Mayes Urea nitrogen/Creatinin e [Mass ratio] 10.0 mg/mg Normal [facility] Comment on above: Performed By: #### B MP ####[facility] [address] [id number] Mayes PROF CHEM 8 (BAS METB)on Anion gap [Moles/Vol] 10.3 mmol/L Normal [facility] Comment on above: Performed By: #### B MP #### [facility] Laboratory [address] [address] [address] Mely Mayes Calcium [Mass/Vol] 9.1 mg/dL Normal 8.5-10.1 [facility] Comment on above: Performed By: #### B MP #### [facility] Laboratory [address] [place] [address] Dr. Mely Mayes Chloride [Moles/Vol] 103 mmol/L Normal 98-107 [facility] Comment on above: Performed By: #### B MP #### [facility] Laboratory [address] [place] [address] Dr. Mely Mayes CO2 [Moles/Vol] 25.4 mmol/L Normal 21.0-32.0 [facility] Comment on above: Performed By: #### B MP #### [facility] Laboratory [address] [place] [address] Dr. Mely Mayes Creatinine [Mass/Vol] 1.06 mg/dL Normal 0.70-1.30 [facility] Comment on above: Performed By: #### B MP #### [facility] Laboratory [address] [place] [address] Dr. Mely Mayes EGFR-AF CHADIAN >60 Normal >=60 [facility] Comment on above: Performed By: #### B MP #### [facility] Laboratory [address] [place] [address] Dr. Mely Mayes EGFR-NON AF CHADIAN >60 Normal >=60 [facility] Comment on above: Performed By: #### B MP #### [facility] Laboratory [address] [place] [address] Dr. Mely Mayes Glucose [Mass/Vol] 247 mg/dL Critically high 74-106 T [facility] Comment on above: Performed By: #### B MP #### [facility] Laboratory [address] [place] [address] Dr. Mely Mayes Potassium [Moles/Vol] 3.7 mmol/L Normal 3.5-5.1 [facility] Comment on above: Performed By: #### B MP #### [facility] Laboratory [address] [place] [address] Dr. Mely Mayes Sodium [Moles/Vol] 135 mmol/L Critically low 136-145 [facility] Comment on above: Performed By: #### B MP #### [facility] Laboratory [address] [address] [address] Mely Mayes Urea nitrogen [Mass/Vol] 11.0 mg/dL Normal 7.0-18.0 [facility] Comment on above: Performed By: #### B MP #### [facility] Laboratory [address] [address] [address] Mely Mayes Urea nitrogen/Creatinin e [Mass ratio] 10.4 mg/mg Normal [facility] Comment on above: Performed By: #### B MP #### [facility] Laboratory [address] [address] [address] Mely Mayes PROF CHEM 8 (BAS METB)on Anion gap [Moles/Vol] 10.1 mmol/L Normal [facility] Comment on above: Performed By: #### B MP #### [facility] Laboratory [address] [place] [address] Dr. Mely Mayes Calcium [Mass/Vol] 9.0 mg/dL Normal 8.5-10.1 [facility] Comment on above: Performed By: #### B MP #### [facility] Laboratory [address] [address] [address] Mely Mayes Chloride [Moles/Vol] 100 mmol/L Normal 98-107 [facility] Comment on above: Performed By: #### B MP #### [facility] Laboratory [address] [address] [address] Mely Mayes CO2 [Moles/Vol] 28.0 mmol/L Normal 21.0-32.0 [facility] Comment on above: Performed By: #### B MP #### [facility] Laboratory [address] [address] [address] Mely Mayes Creatinine [Mass/Vol] 1.13 mg/dL Normal 0.70-1.30 [facility] Comment on above: Performed By: #### B MP #### [facility] Laboratory [address] [place] [address] Dr. Mely Mayes EGFR-AF CHADIAN >60 Normal >=60 [facility] Comment on above: Performed By: #### B MP #### [facility] Laboratory [address] [address] [address] Mely Mayes EGFR-NON AF CHADIAN >60 Normal >=60 [facility] Comment on above: Performed By: #### B MP #### [facility] Laboratory [address] [address] [address] Mely Mayes Glucose [Mass/Vol] 285 mg/dL Critically high 74-106 T [facility] Comment on above: Performed By: #### B MP #### [facility] Laboratory [address] [address] [address] Mely Mayes Potassium [Moles/Vol] 4.1 mmol/L Normal 3.5-5.1 [facility] Comment on above: Performed By: #### B MP #### [facility] Laboratory [address] [address] [address] Mely Mayes Sodium [Moles/Vol] 134 mmol/L Critically low 136-145 [facility] Comment on above: Performed By: #### B MP #### [facility] Laboratory [address] [address] [address] Mely Mayes Urea nitrogen [Mass/Vol] 9.0 mg/dL Normal 7.0-18.0 [facility] Comment on above: Performed By: #### B MP #### [facility] Laboratory [address] [address] [address] Mely Mayes Urea nitrogen/Creatinin e [Mass ratio] 8.0 mg/mg Normal [facility] Comment on above: Performed By: #### B MP #### [facility] Laboratory [address] [address] [address] Mely Mayes COVID Quick Testingon 2021 Result Positive Reviews42 Other BASIC METABOLIC PANELon 12-27 Calcium [Mass/Vol] 9.0 mg/dL Normal 8.6-10.3 [facility] Comment on above: Order Comment: Check Chest Tube Position Performed By: #### 1 0070, [id number] ####[facility] [place] [address], [facility] Chloride [Moles/Vol] 103 mmol/L Normal 98-107 [facility] Comment on above: Order Comment: Check Chest Tube Position Performed By: #### 1 69, 09730 ####[facility] [place] [address], [facility] CO2 [Moles/Vol] 24 mmol/L Normal 21-31 [facility] Comment on above: Order Comment: Check Chest Tube Position Performed By: #### 1 69, 72857 ####[facility] [facility] [place] [address], [facility] Creatinine [Mass/Vol] 0.84 mg/dL Normal 0.70-1.30 [facility] Comment on above: Order Comment: Check Chest Tube Position Performed By: #### 1 69, 28668 ####[facility] [facility] [id number], [facility] GFR/1.73 sq M.predicted among blacks MDRD (S/P/Bld) [Vol rate/Area] mL/min/{1.73_m2} Normal >60 [facility] Comment on above: Order Comment: Check Chest Tube Position Performed By: #### 1 69, 34351 ####[facility] [facility] [id number], [facility] GFR/1.73 sq M.predicted among non-blacks MDRD (S/P/Bld) [Vol rate/Area] mL/min/{1.73_m2} Normal >60 [facility] Comment on above: Order Comment: Check Chest Tube Position Performed By: #### 1 69, 91218 ####[facility] [id number], [facility] Glucose [Mass/Vol] 137 mg/dL High 70-100 [facility] Comment on above: Order Comment: Check Chest Tube Position Performed By: #### 1 69, 67327 ####[facility] [facility] [address], [facility] Potassium [Moles/Vol] 3.6 mmol/L Normal 3.5-5.1 [facility] Comment on above: Order Comment: Check Chest Tube Position Performed By: #### 1 69, [address] ####[address] [facility] [place] [address], [facility] Sodium [Moles/Vol] 138 mmol/L Normal 136-145 [facility] Comment on above: Order Comment: Check Chest Tube Position Performed By: #### 1 69, 28461 ####[address] Urea nitrogen [Mass/Vol] 13 mg/dL Normal 7-25 [facility] Comment on above: Order Comment: Check Chest Tube Position Performed By: #### 1 69, 26755 ####[address] CBC COMPLETE BLOOD COUNTon 0 - Erythrocyte distribution width (RBC) [Ratio] 13.0 % Normal 11.5-15.0 [facility] Comment on above: Order Comment: evalu ate Performed By: #### 5 0608 ####[address] [address] [facility].[address] Hematocrit (Bld) [Volume fraction] 33.3 % Low 39.0-50.0 [facility] Comment on above: Order Comment: evalu ate Performed By: #### 5 0608 ####[address] [place] [address], [facility] Hemoglobin (Bld) [Mass/Vol] 11.8 g/dL Low 13.0-17.0 [facility] Comment on above: Order Comment: evalu ate Performed By: #### 5 0608 ####[address] [place] [address], [facility] MCH (RBC) [Entitic mass] 30.3 pg Normal 27.0-33.0 [facility] Comment on above: Order Comment: evalu ate Performed By: #### 5 0608 ####[facility] MCHC (RBC) [Mass/Vol] 35.4 g/dL High 32.0-35.0 [facility] Comment on above: Order Comment: evalu ate Performed By: #### 5 0608 ####[facility] MCV (RBC) [Entitic vol] 85.6 fL Normal 82.0-98.0 [facility] Comment on above: Order Comment: evalu ate Performed By: #### 5 0608 ####[facility] Nucleated RBC/100 WBC (Bld) [Ratio] 0 % Normal 0-0 [facility] Comment on above: Order Comment: evalu ate Performed By: #### 5 0608 ####[facility] PLAT CNT 224 10*3/uL Normal 150-400 [facility] Comment on above: Order Comment: evalu ate Performed By: #### 5 0608 ####[facility] RBC (Bld) [#/Vol] 3.89 10*6/uL Low 4.20-5.70 [facility] Comment on above: Order Comment: evalu ate Performed By: #### 5 0608 ####[facility] WBC (Bld) [#/Vol] 9.88 10*3/uL Normal 4.00-10.60 [facility] Comment on above: Order Comment: evalu ate Performed By: #### 5 0608 ####[facility] [place] [address], [facility] MAGNESIUM BLOODon 01-07-2022 Magnesium [Mass/Vol] 2.3 mg/dL Normal 1.9-2.7 [facility] Comment on above: Order Comment: Check Chest Tube Position Performed By: #### 1 0070, 24354 ####[facility] [place] [address], [facility] POC GLUCOSE LABon 01-07-2022 Glucose [Mass/Vol] 143 mg/dL High 70-100 [facility] Comment on above: Performed By: #### 8 5499 ####[facility] [place] [address], [facility] Glucose [Mass/Vol] 182 mg/dL High 70-100 [facility] Comment on above: Performed By: #### 8 5499 ####[facility] [place], [place] [id number] [place] [address] PORTABLE CHEST 1 VIEWon 12-27 PORTABLE CHEST 1 VIEW [facility] Department of Radiology [address] [place] [address] Patient Name: OSWALD OCHOA : 1955 Sex: M Age: Race: White Pt. Location: [address] [place] [address] Patient Status: I Ordered Date: 01/07/2022 5:00:00 [...] improved Electronically signed: YOLANDA GUTIERREZ. Transcribed by: [id number], User Resident: Electronically Signed by: YOLANDA GUTIERREZ @ 01/07/2022 09:39 AM Normal [facility] Comment on above: Order Comment: Evalu ate for Pneumothorax BASIC METABOLIC PANELon 12-27 Calcium [Mass/Vol] 9.0 mg/dL Normal 8.6-10.3 [facility] Comment on above: Order Comment: No: D o not add to previous draw Performed By: #### 1 007, 71094 ####[facility] [place] [address], [place] Chloride [Moles/Vol] 100 mmol/L Normal 98-107 [facility] Comment on above: Order Comment: No: D o not add to previous draw Performed By: #### 1 69, 05937 ####[facility] [place] [address], [place] CO2 [Moles/Vol] 26 mmol/L Normal 21-31 [facility] Comment on above: Order Comment: No: D o not add to previous draw Performed By: #### 1 69, 88991 ####[facility] [place] [address], [facility] Creatinine [Mass/Vol] 0.75 mg/dL Normal 0.70-1.30 [facility] Comment on above: Order Comment: No: D o not add to previous draw Performed By: #### 1 69, 94247 ####[facility] [place] [address], [facility] GFR/1.73 sq M.predicted among blacks MDRD (S/P/Bld) [Vol rate/Area] mL/min/{1.73_m2} Normal >60 [facility] Comment on above: Order Comment: No: D o not add to previous draw Performed By: #### 1 69, 41735 ####[facility] [place] [address], [facility] GFR/1.73 sq M.predicted among non-blacks MDRD (S/P/Bld) [Vol rate/Area] mL/min/{1.73_m2} Normal >60 [facility] Comment on above: Order Comment: No: D o not add to previous draw Performed By: #### 1 69, 63032 ####[facility] [place] [address], [facility] Glucose [Mass/Vol] 139 mg/dL High 70-100 [facility] Comment on above: Order Comment: No: D o not add to previous draw Performed By: #### 1 69, 70768 ####[facility] [place] [address], [facility] Potassium [Moles/Vol] 3.4 mmol/L Low 3.5-5.1 [facility] Comment on above: Order Comment: No: D o not add to previous draw Performed By: #### 1 69, 01869 ####[facility] Sodium [Moles/Vol] 136 mmol/L Normal 136-145 [facility] Comment on above: Order Comment: No: D o not add to previous draw Performed By: #### 1 0, 66081 ####[facility] [facility].[address] Urea nitrogen [Mass/Vol] 12 mg/dL Normal 7-25 [facility] Comment on above: Order Comment: No: D o not add to previous draw Performed By: #### 1 69, 21486 ####[facility] CBC COMPLETE BLOOD COUNTon 0 01-06-2022 Erythrocyte distribution width (RBC) [Ratio] 12.5 % Normal 11.5-15.0 [facility] Comment on above: Order Comment: No: D o not add to previous draw Performed By: #### 5 0608 ####[facility] Hematocrit (Bld) [Volume fraction] 30.8 % Low 39.0-50.0 [facility] Comment on above: Order Comment: No: D o not add to previous draw Performed By: #### 5 0608 ####[place] [address] [facility].[address] Hemoglobin (Bld) [Mass/Vol] 10.9 g/dL Low 13.0-17.0 [facility] Comment on above: Order Comment: No: D o not add to previous draw Performed By: #### 5 0608 ####[address] MCH (RBC) [Entitic mass] 30.2 pg Normal 27.0-33.0 [facility] Comment on above: Order Comment: No: D o not add to previous draw Performed By: #### 5 0608 ####[facility] MCHC (RBC) [Mass/Vol] 35.4 g/dL High 32.0-35.0 [facility] Comment on above: Order Comment: No: D o not add to previous draw Performed By: #### 5 0608 ####[facility] [place] [address], [facility] MCV (RBC) [Entitic vol] 85.3 fL Normal 82.0-98.0 [facility] Comment on above: Order Comment: No: D o not add to previous draw Performed By: #### 5 0608 ####[facility] [facility].[address] Nucleated RBC/100 WBC (Bld) [Ratio] 0 % Normal 0-0 [facility] Comment on above: Order Comment: No: D o not add to previous draw Performed By: #### 5 0608 ####[facility] [place] [address], [facility] PLAT CNT 169 10*3/uL Normal 150-400 [facility] Comment on above: Order Comment: No: D o not add to previous draw Performed By: #### 5 0608 ####[facility] [place] [address].[place] [address], [facility] RBC (Bld) [#/Vol] 3.61 10*6/uL Low 4.20-5.70 [facility] Comment on above: Order Comment: No: D o not add to previous draw Performed By: #### 5 0608 ####[facility] [place] [address], [facility] WBC (Bld) [#/Vol] 11.89 10*3/uL High 4.00-10.60 [facility] Comment on above: Order Comment: No: D o not add to previous draw Performed By: #### 5 0608 ####[facility] [place] [address], [place] MAGNESIUM BLOODon 01-06-2022 Magnesium [Mass/Vol] 1.9 mg/dL Normal 1.9-2.7 [facility] Comment on above: Order Comment: No: D o not add to previous draw Performed By: #### 1 0070, 06811 ####[facility] [place] [address], [place] POC GLUCOSE LABon 01-06-2022 Glucose [Mass/Vol] 143 mg/dL High 70-100 [facility] Comment on above: Performed By: #### 8 5499 ####[facility] [place] [address], [place] Glucose [Mass/Vol] 159 mg/dL High 70-100 [facility] Comment on above: Performed By: #### 8 5499 ####[facility] [place] [address], [place] Glucose [Mass/Vol] 215 mg/dL High 70-100 [facility] Comment on above: Performed By: #### 8 5499 ####[facility] [place] [address], [place] Glucose [Mass/Vol] 153 mg/dL High 70-100 [facility] Comment on above: Performed By: #### 8 5499 ####[facility] [place] [address], [facility] PORTABLE CHEST 1 VIEWon 12-27 PORTABLE CHEST 1 VIEW [facility] Department of Radiology [address] [place] [address] Patient Name: OSWALD OCHOA : 1955 Sex: M Age: Race: White Pt. Location: [place] [address] Patient Status: I Ordered Date: 01/06/2022 5:00:00 [...] atelectasis. Electronically signed: YOLANDA GUTIERREZ. Transcribed by: [email or web address], User Resident: Electronically Signed by: YOLANDA GUTIERREZ @ 01/06/2022 09:50 AM Normal [facility] Comment on above: Order Comment: Evalu ate for Atelectasis BASIC METABOLIC PANELon 12-27 Calcium [Mass/Vol] 9.0 mg/dL Normal 8.6-10.3 [facility] Comment on above: Order Comment: Check Chest Tube Position Performed By: #### 0 0071, 99476, 23105 ####[facility] [place] [address], [place] Chloride [Moles/Vol] 101 mmol/L Normal 98-107 [facility] Comment on above: Order Comment: Check Chest Tube Position Performed By: #### 0 0071, 15320, 32829 ####[facility] [place] [address], [place] CO2 [Moles/Vol] 28 mmol/L Normal 21-31 [facility] Comment on above: Order Comment: Check Chest Tube Position Performed By: #### 0 0071, 33346, 47797 ####[facility] [place] [address], [place] Creatinine [Mass/Vol] 0.79 mg/dL Normal 0.70-1.30 [facility] Comment on above: Order Comment: Check Chest Tube Position Performed By: #### 0 0071, 80463, 79683 ####[facility] [place] [address], [place] GFR/1.73 sq M.predicted among blacks MDRD (S/P/Bld) [Vol rate/Area] mL/min/{1.73_m2} Normal >60 [facility] Comment on above: Order Comment: Check Chest Tube Position Performed By: #### 0 0071, 62429, 07496 ####[facility] [place] [address], [place] GFR/1.73 sq M.predicted among non-blacks MDRD (S/P/Bld) [Vol rate/Area] mL/min/{1.73_m2} Normal >60 [facility] Comment on above: Order Comment: Check Chest Tube Position Performed By: #### 0 0071, 27287, 42078 ####[facility] [place] [address], [place] Potassium [Moles/Vol] 3.9 mmol/L Normal 3.5-5.1 [facility] Comment on above: Order Comment: Check Chest Tube Position Performed By: #### 0 0071, 94246, 44620 ####[facility] Sodium [Moles/Vol] 135 mmol/L Low 136-145 [facility] Comment on above: Order Comment: Check Chest Tube Position Performed By: #### 0 0071, 45723, 47462 ####[facility] [facility].[address] Urea nitrogen [Mass/Vol] 9 mg/dL Normal 7-25 [facility] Comment on above: Order Comment: Check Chest Tube Position Performed By: #### 0 0071, 51130, 88421 ####[facility] [facility].[address] CBC COMPLETE BLOOD COUNTon 0 - Erythrocyte distribution width (RBC) [Ratio] 13.1 % Normal 11.5-15.0 [facility] Comment on above: Order Comment: No: D o not add to previous draw Performed By: #### 5 0608 ####[place] [address] [facility].[address] Hematocrit (Bld) [Volume fraction] 30.6 % Low 39.0-50.0 [facility] Comment on above: Order Comment: No: D o not add to previous draw Performed By: #### 5 0608 ####[facility]3000 [facility].[address] Hemoglobin (Bld) [Mass/Vol] 10.6 g/dL Low 13.0-17.0 [facility] Comment on above: Order Comment: No: D o not add to previous draw Performed By: #### 5 0608 ####[facility] [place] [address], [facility] MCH (RBC) [Entitic mass] 30.3 pg Normal 27.0-33.0 [facility] Comment on above: Order Comment: No: D o not add to previous draw Performed By: #### 5 0608 ####[facility] MCHC (RBC) [Mass/Vol] 34.6 g/dL Normal 32.0-35.0 [facility] Comment on above: Order Comment: No: D o not add to previous draw Performed By: #### 5 0608 ####[facility] MCV (RBC) [Entitic vol] 87.4 fL Normal 82.0-98.0 [facility] Comment on above: Order Comment: No: D o not add to previous draw Performed By: #### 5 0608 ####[place] [address] [address] Nucleated RBC/100 WBC (Bld) [Ratio] 0 % Normal 0-0 [facility] Comment on above: Order Comment: No: D o not add to previous draw Performed By: #### 5 0608 ####[facility]3000 [facility].[address] PLAT CNT 155 10*3/uL Normal 150-400 [facility] Comment on above: Order Comment: No: D o not add to previous draw Performed By: #### 5 0608 ####[facility] [place] [address].[address] RBC (Bld) [#/Vol] 3.50 10*6/uL Low 4.20-5.70 [facility] Comment on above: Order Comment: No: D o not add to previous draw Performed By: #### 5 0608 ####[facility] [place] [address].[address] WBC (Bld) [#/Vol] 13.63 10*3/uL High 4.00-10.60 [facility] Comment on above: Order Comment: No: D o not add to previous draw Performed By: #### 5 0608 ####[facility] [place] [address], [place] MAGNESIUM BLOODon 01-05-2022 Magnesium [Mass/Vol] 2.0 mg/dL Normal 1.9-2.7 [facility] Comment on above: Order Comment: Check Chest Tube Position Performed By: #### 0 0071, 57797, 74187 ####[facility] [place] [address], [place] PHOSPHORUS BLOODon Phosphate [Mass/Vol] 2.8 mg/dL Normal 2.5-5.0 [facility] Comment on above: Performed By: #### 0 0071, 69905, 00806 ####[facility] [place] [address], [place] POC GLUCOSE LABon 01-05-2022 Glucose [Mass/Vol] 136 mg/dL High 70-100 [facility] Comment on above: Performed By: #### 8 5499 ####[facility] [place] [address], [place] Glucose [Mass/Vol] 157 mg/dL High 70-100 [facility] Comment on above: Performed By: #### 8 5499 ####[facility] [place] [address], [place] Glucose [Mass/Vol] 147 mg/dL High 70-100 [facility] Comment on above: Performed By: #### 8 5499 ####[facility] [place] [address], [place] Order Comment: Check Chest Tube Position Performed By: #### 0 0071, 06936, 96619 ####[facility] [place] [address], [place] Glucose [Mass/Vol] 151 mg/dL High 70-100 [facility] Comment on above: Performed By: #### 8 5499 ####[facility] PORTABLE CHEST 1 VIEWon 12-27 PORTABLE CHEST 1 VIEW [facility] Department of Radiology [address] [place] [address] Patient Name: OSWALD OCHOA : 1955 Sex: M Age: Race: White Pt. Location: [place] [address] Patient Status: I Ordered Date: 01/05/2022 12:20:00 [...] hours. Electronically signed: Nic Ramon. Transcribed by: [email or web address], User Resident: Electronically Signed by: NIC RAMON @ 01/05/2022 05:15 PM Normal [facility] Comment on above: Order Comment: evalu ate PORTABLE CHEST 1 VIEW [facility] Department of Radiology [address] [place] [address] Patient Name: OSWALD OCHOA : 1955 Sex: M Age: Race: White Pt. Location: [place] [address] Patient Status: I Ordered Date: 01/05/2022 5:00:00 AM Completed Date: 01/05/2022 06:22 AM Requesting Provider: SERINA CLINE Attending Provider: OJSE R GUZMAN Report Copy To: Signs & [...] appreciated. Electronically signed: Michelle Kc. Transcribed by: [email or web address], User Resident: Electronically Signed by: MICHELLE KC @ 01/05/2022 08:23 AM Normal [facility] Comment on above: Order Comment: evalu ate for Atelectasis APTTon 01-04-2022 aPTT Coag (Bld) [Time] 31.0 s Normal 25.0-35.0 [facility] Comment on above: Order Comment: [...] THIS PURPOSE. Performed By: #### 5 6101, 28010 ####[facility] [place] [address], [facility] ARTERIAL BLOOD GAS WITH ICAo n 01-04-2022 BASE EXCESS -5 mmol/L Low -2-3 [facility] Comment on above: Order Comment: Check Chest Tube Position, ON ARRIVAL TO CVU Performed By: #### 8 5151 ####[facility] [place] [address], [facility] DELIVERY SYSTEMS VENTILATOR Normal [facility] Comment on above: Order Comment: Check Chest Tube Position, ON ARRIVAL TO CVU Performed By: #### 8 8761 ####[facility] [place] [address], [place] FIO2 40 % Normal [facility] Comment on above: Order Comment: Check Chest Tube Position, ON ARRIVAL TO CVU Performed By: #### 8 4411 ####[facility] [place] [address], [place] HCO3 (Bld) [Moles/Vol] 22 mmol/L Normal 21-28 [facility] Comment on above: Order Comment: Check Chest Tube Position, ON ARRIVAL TO CVU Performed By: #### 8 4511 ####[facility] [place] [address], [place] IONIZED CALCIUM ERROR Normal 1.13-1.32 [facility] Comment on above: Order Comment: Check Chest Tube Position, ON ARRIVAL TO CVU Performed By: #### 8 4511 ####[facility] [place] [address], [place] MIN VOLUME 11.7 Normal [facility] Comment on above: Order Comment: Check Chest Tube Position, ON ARRIVAL TO CVU Performed By: #### 8 4511 ####[facility] [place] [address], [facility] MODALITY SPONT Normal [facility] Comment on above: Order Comment: Check Chest Tube Position, ON ARRIVAL TO CVU Performed By: #### 8 4511 ####[facility] [place] [address], [place] Oxygen (Bld) [Partial pressure] 116 mm[Hg] Critically high 83-108 [facility] Comment on above: Order Comment: Check Chest Tube Position, ON ARRIVAL TO CVU Performed By: #### 8 4511 ####[facility] [place] [address], [place] Oxygen saturation in Blood 96.7 % Normal 94.0-97.0 [facility] Comment on above: Order Comment: Check Chest Tube Position, ON ARRIVAL TO CVU Performed By: #### 8 4511 ####[facility] [place] [address], [place] PCO2 45 mmHg Normal 35-45 [facility] Comment on above: Order Comment: Check Chest Tube Position, ON ARRIVAL TO CVU Performed By: #### 8 4511 ####[facility] [place] [address], [facility] PEEP 8.0 CMH20 Normal [facility] Comment on above: Order Comment: Check Chest Tube Position, ON ARRIVAL TO CVU Performed By: #### 8 4511 ####[facility] [place] [address], [facility] pH (Bld) 7.29 [pH] Low 7.35-7.45 [facility] Comment on above: Order Comment: Check Chest Tube Position, ON ARRIVAL TO CVU Performed By: #### 8 4511 ####[facility] [place] [address], [facility] PRESSURE SUPPORT 5 Normal [facility] Comment on above: Order Comment: Check Chest Tube Position, ON ARRIVAL TO CVU Performed By: #### 8 4511 ####[facility] [place] [address], [facility] BASIC METABOLIC PANELon 06-0 9-2021 Calcium [Mass/Vol] 8.5 mg/dL Low 8.6-10.3 [facility] Comment on above: Order Comment: post thoracotomy Performed By: #### 4 999, 24005, 06204 ####[facility] [place] [address], [facility] Chloride [Moles/Vol] 107 mmol/L Normal 98-107 [facility] Comment on above: Order Comment: post thoracotomy Performed By: #### 4 999, 98685, 58774 ####[facility] [place] [address], [place] CO2 [Moles/Vol] 25 mmol/L Normal 21-31 [facility] Comment on above: Order Comment: post thoracotomy Performed By: #### 4 999, 06898, 98244 ####[facility] [place] [address], [facility] Creatinine [Mass/Vol] 0.96 mg/dL Normal 0.70-1.30 [facility] Comment on above: Order Comment: post thoracotomy Performed By: #### 4 1000, 70084, 87063 ####[facility] [place] [address], [place] GFR/1.73 sq M.predicted among blacks MDRD (S/P/Bld) [Vol rate/Area] mL/min/{1.73_m2} Normal >60 [facility] Comment on above: Order Comment: post thoracotomy Performed By: #### 4 1000, 27641, 91677 ####[facility] [facility] [place] [address], [facility] GFR/1.73 sq M.predicted among non-blacks MDRD (S/P/Bld) [Vol rate/Area] mL/min/{1.73_m2} Normal >60 [facility] Comment on above: Order Comment: post thoracotomy Performed By: #### 4 999, 78997, 09788 ####[facility] [facility] [place] [address], [facility] Glucose [Mass/Vol] 172 mg/dL High 70-100 [facility] Comment on above: Order Comment: post thoracotomy Performed By: #### 4 999, 89584, 79321 ####[facility] [facility] [place] [address], [place] Potassium [Moles/Vol] 4.1 mmol/L Normal 3.5-5.1 [facility] Comment on above: Order Comment: post thoracotomy Performed By: #### 4 999, 08747, 78151 ####[facility] [facility] [place] [address], [place] Sodium [Moles/Vol] 139 mmol/L Normal 136-145 [facility] Comment on above: Order Comment: post thoracotomy Performed By: #### 4 1000, 31092, 00545 ####[facility] Urea nitrogen [Mass/Vol] 10 mg/dL Normal 7-25 [facility] Comment on above: Order Comment: post thoracotomy Performed By: #### 4 1000, 41794, 51240 ####[facility] [facility] [place] [address], [facility] CBC COMPLETE BLOOD COUNTon 0 01-04-2022 Erythrocyte distribution width (RBC) [Ratio] 12.7 % Normal 11.5-15.0 [facility] Comment on above: Order Comment: No: D o not add to previous drawNurse draw per rn clare Performed By: #### 5 0608 ####[facility] [facility].[address] Hematocrit (Bld) [Volume fraction] 30.5 % Low 39.0-50.0 [facility] Comment on above: Order Comment: No: D o not add to previous drawNurse draw per rn clare Performed By: #### 5 0608 ####[facility]3000 [facility].[address] Hemoglobin (Bld) [Mass/Vol] 10.6 g/dL Low 13.0-17.0 [facility] Comment on above: Order Comment: No: D o not add to previous drawNurse draw per rn clare Performed By: #### 5 0608 ####[facility] [facility] [place] [address], [facility] MCH (RBC) [Entitic mass] 30.1 pg Normal 27.0-33.0 [facility] Comment on above: Order Comment: No: D o not add to previous drawNurse draw per rn clare Performed By: #### 5 0608 ####[facility] [place] [address], [facility] MCHC (RBC) [Mass/Vol] 34.8 g/dL Normal 32.0-35.0 [facility] Comment on above: Order Comment: No: D o not add to previous drawNurse draw per rn clare Performed By: #### 5 0608 ####[facility] [place] [address], [facility] MCV (RBC) [Entitic vol] 86.6 fL Normal 82.0-98.0 [facility] Comment on above: Order Comment: No: D o not add to previous drawNurse draw per rn clare Performed By: #### 5 0608 ####[facility] [facility] [place] [address], [facility] Nucleated RBC/100 WBC (Bld) [Ratio] 0 % Normal 0-0 [facility] Comment on above: Order Comment: No: D o not add to previous drawNurse draw per rn clare Performed By: #### 5 0608 ####[facility] [place] [address], [facility] PLAT CNT 149 10*3/uL Low 150-400 [facility] Comment on above: Order Comment: No: D o not add to previous drawNurse draw per rn clare Performed By: #### 5 0608 ####[facility] [place] [address], [facility] RBC (Bld) [#/Vol] 3.52 10*6/uL Low 4.20-5.70 [facility] Comment on above: Order Comment: No: D o not add to previous drawNurse draw per rn clare Performed By: #### 5 0608 ####[facility] [place] [address], [facility] WBC (Bld) [#/Vol] 11.45 10*3/uL High 4.00-10.60 [facility] Comment on above: Order Comment: No: D o not add to previous drawNurse draw per rn clare Performed By: #### 5 0608 ####[facility] [place] [address], [facility] LACTATE BLOODon 01-04-2022 Lactate [Moles/Vol] 2.0 mmol/L Normal .5-2.2 [facility] Comment on above: Order Comment: Check Chest Tube Position Performed By: #### 1 0054 ####[facility] [id number], [facility] MAGNESIUM BLOODon 01-04-2022 Magnesium [Mass/Vol] 2.4 mg/dL Normal 1.9-2.7 [facility] Comment on above: Order Comment: post thoracotomy Performed By: #### 4 1000, 08230, [id number] ####[facility] [place] [address], [facility] MIXED VENOUS BLOOD GAS W/FERTILIZING MACHINE OPERATOR Xon 01-04-2022 BASE EXCESS -1 mmol/L Normal [facility] Comment on above: Performed By: #### 7 0072 ####[facility] [place] [address], [facility] COHB 1 % Normal [facility] Comment on above: Performed By: #### 7 0072 ####[facility] [facility].[address] DELIVERY SYSTEMS NASAL CANNULA Normal [facility] Comment on above: Performed By: #### 7 0072 ####[facility] [place] [address], [facility] HCO3 (Bld) [Moles/Vol] 26 mmol/L Normal [facility] Comment on above: Performed By: #### 7 0072 ####[facility] [place] [address], [facility] LPM 3 Normal [facility] Comment on above: Performed By: #### 7 0072 ####[facility] [place] [address], [facility] METHB 0 % Normal [facility] Comment on above: Performed By: #### 7 0072 ####[facility] [place] [address], [facility] Oxygen (Bld) [Partial pressure] 41 mm[Hg] Normal 35-45 [facility] Comment on above: Performed By: #### 7 0072 ####[facility] [place] [address], [facility] Oxygen saturation in Blood 67.6 % Normal 65.0-75.0 [facility] Comment on above: Performed By: #### 7 0072 ####[facility] [place] [address], [facility] PCO2 51 mmHg High 40-50 [facility] Comment on above: Performed By: #### 7 0072 ####[facility] [place] [address], [facility] pH (Bld) 7.32 [pH] Normal 7.31-7.41 [facility] Comment on above: Performed By: #### 7 0072 ####[facility] [place] [address], [facility] THB 11.0 g/dL Normal [facility] Comment on above: Performed By: #### 7 0072 ####[facility] Operative Reporton 2 Operative Report MR#: [id number] I [facility] Pt. Name: Oswald Ochoa Room #: HIRO [id number] Discharge Date: Birthdate: 1955 OPERATIVE REPORT DATE [...] saphenous vein. 3. Interpretation of transesophageal echocardiogram. HAND ALTERATIONS TAILOR: Pedro Luis Gill. ANESTHESIA: General with endotracheal [...] graft. The vein graft anastomosed in a [id number]-[id number] fashion to the obtuse marginal 2 branch [...] w (more content not included)... Normal [facility] PHOSPHORUS BLOODon 2 Phosphate [Mass/Vol] 2.9 mg/dL Normal 2.5-5.0 [facility] Comment on above: Order Comment: post thoracotomy Performed By: #### 4 1000, 58373, 16720 ####[facility] POC GLUCOSE LABon 01-04-2022 Glucose [Mass/Vol] 130 mg/dL High 70-100 [facility] Comment on above: Performed By: #### 8 5499 ####[facility] [place] [address], [place] Glucose [Mass/Vol] 118 mg/dL High 70-100 [facility] Comment on above: Performed By: #### 8 5499 ####[facility] [place] [address], [place] Glucose [Mass/Vol] 101 mg/dL High 70-100 [facility] Comment on above: Performed By: #### 8 5499 ####[facility] [place] [address], [place] Glucose [Mass/Vol] 96 mg/dL Normal 70-100 [facility] Comment on above: Performed By: #### 8 5499 ####[facility] [place] [address], [place] Glucose [Mass/Vol] 76 mg/dL Normal 70-100 [facility] Comment on above: Performed By: #### 8 5499 ####[facility] [place] [address], [place] Glucose [Mass/Vol] 93 mg/dL Normal 70-100 [facility] Comment on above: Performed By: #### 8 5499 ####[facility] [place] [address], [place] Glucose [Mass/Vol] 130 mg/dL High 70-100 [facility] Comment on above: Performed By: #### 8 5499 ####[facility] [place] [address], [place] Glucose [Mass/Vol] 130 mg/dL High 70-100 [facility] Comment on above: Performed By: #### 8 5499 ####[facility] [place] [address], [place] Glucose [Mass/Vol] 147 mg/dL High 70-100 [facility] Comment on above: Performed By: #### 8 5499 ####[facility] [place] [address], [place] Glucose [Mass/Vol] 175 mg/dL High 70-100 [facility] Comment on above: Performed By: #### 8 5499 ####[facility] [place] [address], [place] Glucose [Mass/Vol] 190 mg/dL High 70-100 [facility] Comment on above: Performed By: #### 8 5499 ####[facility] [facility] [address], [place] Glucose [Mass/Vol] 207 mg/dL High 70-100 [facility] Comment on above: Performed By: #### 8 5499 ####[facility] [place] [address], [place] Glucose [Mass/Vol] 200 mg/dL High 70-100 [facility] Comment on above: Performed By: #### 8 5499 ####[facility] [place] [address], [facility] PORTABLE CHEST 1 VIEW 060 PORTABLE CHEST 1 VIEW [facility] Department of Radiology [address] [place] [id number] Patient Name: OSWALD OCHOA : 1955 Sex: M Age: Race: White Pt. Location: [place] [address] Patient Status: I Ordered Date: 01/04/2022 1:00:00 [...] January 04, 2022. 0643 hours. FINDINGS: The [place]-Perry catheter has been withdrawn leaving a right jugular vein sheath with its tip in the SVC. Sternotomy wires and cardiomegaly remain. Pleural effusion suggested in the left costophrenic angle linear atelectasis over both hemidiaphragms. Perihilar congestive changes persist. No pneumothorax. IMPRESSION: No pneumothorax. No interval change in lung cunningham. Electronically signed: Michelle Kc. Transcribed by: [email or web address], User Resident: Electronically Signed by: MICHELLE KC @ 01/04/2022 01:25 PM Normal [facility] Comment on above: Order Comment: Pneum othorax PORTABLE CHEST 1 VIEW [facility] Department of Radiology [address] [place] [id number] Patient Name: OSWALD OCHOA : 1955 Sex: M Age: Race: White Pt. Location: [place] [address] Patient Status: I Ordered Date: 01/04/2022 7:00:00 [...] tube and NG tube have been removed. [place]-Perry catheter remains with its tip in the right main pulmonary artery. Sternotomy wires with mild cardiomegaly remain. Haziness in the left costophrenic angle suggests effusion and lower lobe consolidation. No pneumothorax identified. IMPRESSION: Left pleural effusion and lower lobe consolidation. Electronically signed: Michelle Kc. Transcribed by: [id number], User Resident: Electronically Signed by: MICHELLE KC @ 01/04/2022 08:12 AM Normal [facility] Comment on above: Order Comment: Check Chest Tube Position PROTHROMBIN TIMEon 2 INR Coag (PPP) [Relative time] 1.24 {INR} High 0.91-1.16 [facility] Comment on above: Order Comment: [...] CHEST 1995;[id number]. Performed By: #### 5 6101, 60592 ####[facility] PT Coag (PPP) [Time] 15.5 s High 12.3-14.8 [facility] Comment on above: Order Comment: evalu ate Result Comment: ALL RESULTS MUST BE INTERPRETED WITH RESPECT TO BLOOD DRAWING ARTIFACT OR DILUTION ERROR OF ANTICOAGULANT AT THE TIME OF SAMPLING. Performed By: #### 5 6101, [address] ####[facility] *MRSA/MSSA DNA NASALon 01-03 *MRSA/MSSA DNA NASAL Clinical Report: (D) Specimen: NASAL SWAB Collected: 01/02/2022 22:13 Status: Final Last Updated: 01/03/2022 10:59 MSSA DNA (Final) Negative MRSA DNA (Final) Negative Normal [facility] Comment on above: Performed By: #### 3 1595 ####[facility] [place] [address], [facility] ACTIVATED CLOTTING TIMEon ACTIVATED CLOTTING TIME 0 sec Low 82-152 [facility] Comment on above: Performed By: #### 3 0739 ####[facility] [place] [address], [facility] ACTIVATED CLOTTING TIME 116 sec Normal 82-152 [facility] Comment on above: Performed By: #### 3 0739 ####[facility] [place] [address], [place] ACTIVATED CLOTTING TIME 426 sec High 82-152 [facility] Comment on above: Performed By: #### 3 0739 ####[facility] [place] [address], [place] ACTIVATED CLOTTING TIME 512 sec High 82-152 [facility] Comment on above: Performed By: #### 3 0739 ####[facility] [place] [address], [place] ACTIVATED CLOTTING TIME 622 sec High 82-152 [facility] Comment on above: Performed By: #### 3 0739 ####[facility] [place] [address], [facility] ACTIVATED CLOTTING TIME 722 sec High 82-152 [facility] Comment on above: Performed By: #### 3 0739 ####[facility] [place] [address], [place] ACTIVATED CLOTTING TIME 855 sec High 82-152 [facility] Comment on above: Performed By: #### 3 0739 ####[facility] [place] [address], [place] ACTIVATED CLOTTING TIME 122 sec Normal 82-152 [facility] Comment on above: Performed By: #### 3 0739 ####[facility] [place] [address], [facility] APTTon 01-03-2022 aPTT Coag (Bld) [Time] 31.0 s Normal 25.0-35.0 [facility] Comment on above: Order Comment: [...] THIS PURPOSE. Performed By: #### 5 7307, 75403 ####[facility] [facility].[address] aPTT Coag (Bld) [Time] 28.9 s Normal 25.0-35.0 [facility] Comment on above: Result Comment: ALL [...] THIS PURPOSE. Performed By: #### 5 7307, 55396, 44961 ####[facility] [facility].[address] ARTERIAL BLOOD GAS WITH ICAo n 01-03-2022 BASE EXCESS -4 mmol/L Low -2-3 [facility] Comment on above: Order Comment: Check Chest Tube Position, ON ARRIVAL TO CVU Performed By: #### 8 4511 ####[place] [address] [place] [address], [facility] DELIVERY SYSTEMS VENTILATOR Normal [facility] Comment on above: Order Comment: Check Chest Tube Position, ON ARRIVAL TO CVU Performed By: #### 8 4511 ####[place] [address] [place] [address], [facility] FIO2 40 % Normal [facility] Comment on above: Order Comment: Check Chest Tube Position, ON ARRIVAL TO CVU Performed By: #### 8 4471 ####[place] [address] [place] [address], [facility] HCO3 (Bld) [Moles/Vol] 22 mmol/L Normal 21-28 [facility] Comment on above: Order Comment: Check Chest Tube Position, ON ARRIVAL TO CVU Performed By: #### 8 8081 ####[facility] [place] [address], [place] IONIZED CALCIUM 1.20 mmol/L Normal 1.13-1.32 [facility] Comment on above: Order Comment: Check Chest Tube Position, ON ARRIVAL TO CVU Performed By: #### 8 4511 ####[facility] [place] [address], [place] MIN VOLUME 12.1 Normal [facility] Comment on above: Order Comment: Check Chest Tube Position, ON ARRIVAL TO CVU Performed By: #### 8 4511 ####[facility] [place] [address], [facility] MODALITY SIMV Normal [facility] Comment on above: Order Comment: Check Chest Tube Position, ON ARRIVAL TO CVU Performed By: #### 8 4511 ####[facility] [place] [address], [facility] Oxygen (Bld) [Partial pressure] 104 mm[Hg] Normal 83-108 [facility] Comment on above: Order Comment: Check Chest Tube Position, ON ARRIVAL TO CVU Performed By: #### 8 4511 ####[facility] [place] [address], [place] Oxygen saturation in Blood 96.5 % Normal 94.0-97.0 [facility] Comment on above: Order Comment: Check Chest Tube Position, ON ARRIVAL TO CVU Performed By: #### 8 4511 ####[facility] [place] [address], [place] PCO2 41 mmHg Normal 35-45 [facility] Comment on above: Order Comment: Check Chest Tube Position, ON ARRIVAL TO CVU Performed By: #### 8 4511 ####[facility] [place] [address], [place] PEEP 8.0 CMH20 Normal [facility] Comment on above: Order Comment: Check Chest Tube Position, ON ARRIVAL TO CVU Performed By: #### 8 4511 ####[facility] [place] [address], [facility] pH (Bld) 7.33 [pH] Low 7.35-7.45 [facility] Comment on above: Order Comment: Check Chest Tube Position, ON ARRIVAL TO CVU Performed By: #### 8 4511 ####[facility] [place] [address], [facility] PRESSURE SUPPORT 10 Normal [facility] Comment on above: Order Comment: Check Chest Tube Position, ON ARRIVAL TO CVU Performed By: #### 8 4511 ####[facility] Respiratory rate 10 /min Normal [facility] Comment on above: Order Comment: Check Chest Tube Position, ON ARRIVAL TO CVU Performed By: #### 8 4511 ####[facility] TIDAL VOLUME (VT) CC 600 Normal [facility] Comment on above: Order Comment: Check Chest Tube Position, ON ARRIVAL TO CVU Performed By: #### 8 4511 ####[facility] BASE EXCESS -4 mmol/L Low -2-3 [facility] Comment on above: Performed By: #### 8 4511 ####[facility] [place] [address], [facility] DELIVERY SYSTEMS mv Normal [facility] Comment on above: Performed By: #### 8 4511 ####[facility] [place] [address], [facility] FIO2 40 % Normal [facility] Comment on above: Performed By: #### 8 4511 ####[facility] [place] [address], [facility] HCO3 (Bld) [Moles/Vol] 23 mmol/L Normal 21-28 [facility] Comment on above: Performed By: #### 8 4511 ####[facility] [place] [address], [facility] IONIZED CALCIUM 1.20 mmol/L Normal 1.13-1.32 [facility] Comment on above: Performed By: #### 8 4511 ####[facility] [place] [address], [facility] MIN VOLUME 8.2 Normal [facility] Comment on above: Performed By: #### 8 4511 ####[facility] [place] [address], [facility] MODALITY SIMV Normal [facility] Comment on above: Performed By: #### 8 4511 ####[facility], [place] [address] [place] [address] Oxygen (Bld) [Partial pressure] 94 mm[Hg] Normal 83-108 [facility] Comment on above: Performed By: #### 8 4511 ####[facility] [place] [address], [facility] Oxygen saturation in Blood 99 % Normal 94-100 [facility] Comment on above: Performed By: #### 8 4511 ####[facility] [place] [address], [facility] Oxygen saturation in Blood 96.3 % Normal 94.0-97.0 [facility] Comment on above: Performed By: #### 8 4511 ####[facility] [place] [address], [facility] PCO2 47 mmHg High 35-45 [facility] Comment on above: Performed By: #### 8 4511 ####[facility] [place] [address], [facility] PEEP 8.0 CMH20 Normal [facility] Comment on above: Performed By: #### 8 4511 ####[facility] [place] [address], [facility] pH (Bld) 7.29 [pH] Low 7.35-7.45 [facility] Comment on above: Performed By: #### 8 4511 ####[facility] [place] [address], [facility] PRESSURE SUPPORT 10 Normal [facility] Comment on above: Performed By: #### 8 4511 ####[facility] Respiratory rate 14 /min Normal [facility] Comment on above: Performed By: #### 8 4511 ####[facility] TIDAL VOLUME (VT) CC 570 Normal [facility] Comment on above: Performed By: #### 8 4511 ####[facility] [place] [address], [facility] BASE EXCESS -6 mmol/L Low -2-3 [facility] Comment on above: Order Comment: evalu ate Performed By: #### 8 4511 ####[facility], [place] [address] [place] [address] DELIVERY SYSTEMS MV Normal [facility] Comment on above: Order Comment: evalu ate Performed By: #### 8 4511 ####[facility] [place] [address], [facility] FIO2 50 % Normal [facility] Comment on above: Order Comment: evalu ate Performed By: #### 8 4511 ####[facility] [place] [address], [facility] HCO3 (Bld) [Moles/Vol] 21 mmol/L Normal 21-28 [facility] Comment on above: Order Comment: evalu ate Performed By: #### 8 4511 ####[facility] [place] [address], [facility] IONIZED CALCIUM 1.14 mmol/L Normal 1.13-1.32 [facility] Comment on above: Order Comment: evalu ate Performed By: #### 8 4511 ####[facility] [place] [address], [facility] MIN VOLUME 8.9 Normal [facility] Comment on above: Order Comment: evalu ate Performed By: #### 8 4511 ####[facility] [place] [address], [facility] MODALITY SIMV Normal [facility] Comment on above: Order Comment: evalu ate Performed By: #### 8 4511 ####[facility] [place] [address], [facility] Oxygen (Bld) [Partial pressure] 133 mm[Hg] Critically high 83-108 [facility] Comment on above: Order Comment: evalu ate Performed By: #### 8 4511 ####[facility] [place] [address], [facility] Oxygen saturation in Blood 97.4 % High 94.0-97.0 [facility] Comment on above: Order Comment: evalu ate Performed By: #### 8 4511 ####[facility] [place] [address], [facility] PCO2 42 mmHg Normal 35-45 [facility] Comment on above: Order Comment: evalu ate Performed By: #### 8 4511 ####[facility] [place] [address], [place] PEEP 8.0 CMH20 Normal [facility] Comment on above: Order Comment: evalu ate Performed By: #### 8 4511 ####[facility] pH (Bld) 7.30 [pH] Low 7.35-7.45 [facility] Comment on above: Order Comment: evalu ate Performed By: #### 8 4511 ####[facility] [place] [address], [facility] PRESSURE SUPPORT 10 Normal [facility] Comment on above: Order Comment: evalu ate Performed By: #### 8 4511 ####[facility] Street Respiratory rate 14 /min Normal [facility] Comment on above: Order Comment: evalu ate Performed By: #### 8 4511 ####[facility] TIDAL VOLUME (VT) CC 570 Normal [facility] Comment on above: Order Comment: evalu ate Performed By: #### 8 4511 ####[facility] [facility] BASIC METABOLIC PANELon 06-0 8-2021 Calcium [Mass/Vol] 8.6 mg/dL Normal 8.6-10.3 [facility] Comment on above: Order Comment: No: D o not add to previous draw Performed By: #### 0 0071, 26716, 12948 ####[facility] [place] [address], [facility] Chloride [Moles/Vol] 108 mmol/L High 98-107 [facility] Comment on above: Order Comment: No: D o not add to previous draw Performed By: #### 0 0071, 88927, 68791 ####[facility] [place] [address], [facility] CO2 [Moles/Vol] 22 mmol/L Normal 21-31 [facility] Comment on above: Order Comment: No: D o not add to previous draw Performed By: #### 0 0071, 51217, 72691 ####[facility] [place] [address], [place] Creatinine [Mass/Vol] 0.97 mg/dL Normal 0.70-1.30 [facility] Comment on above: Order Comment: No: D o not add to previous draw Performed By: #### 0 0071, 81568, 36410 ####[facility] [place] [address], [place] Glucose [Mass/Vol] 177 mg/dL High 70-100 [facility] Comment on above: Order Comment: No: D o not add to previous draw Performed By: #### 0 0071, 14029, 59505 ####[facility] [place] [address], [place] Potassium [Moles/Vol] 4.8 mmol/L Normal 3.5-5.1 [facility] Comment on above: Order Comment: No: D o not add to previous draw Performed By: #### 0 0071, 08920, 78371 ####[facility] [place] [address], [place] Urea nitrogen [Mass/Vol] 12 mg/dL Normal 7-25 [facility] Comment on above: Order Comment: No: D o not add to previous draw Performed By: #### 0 0071, 16156, 55126 ####[facility] [place] [address], [place] Calcium [Mass/Vol] 8.1 mg/dL Low 8.6-10.3 [facility] Comment on above: Performed By: #### 1 0070, 02334 ####[facility] [place] [address], [place] Chloride [Moles/Vol] 107 mmol/L Normal 98-107 [facility] Comment on above: Performed By: #### 1 0070, 90999 ####[facility] [place] [address], [facility] CO2 [Moles/Vol] 23 mmol/L Normal 21-31 [facility] Comment on above: Performed By: #### 1 69, 92041 ####[facility] [place] [address], [facility] Creatinine [Mass/Vol] 1.02 mg/dL Normal 0.70-1.30 [facility] Comment on above: Performed By: #### 1 69, 70795 ####[facility] [place] [address], [facility] GFR/1.73 sq M.predicted among blacks MDRD (S/P/Bld) [Vol rate/Area] mL/min/{1.73_m2} Normal >60 [facility] Comment on above: Order Comment: No: D o not add to previous draw Performed By: #### 0 0071, 37688, 23223 ####[facility] [place] [address], [facility] Performed By: #### 1 69, 20996 ####[facility] [place] [address], [facility] GFR/1.73 sq M.predicted among non-blacks MDRD (S/P/Bld) [Vol rate/Area] mL/min/{1.73_m2} Normal >60 [facility] Comment on above: Order Comment: No: D o not add to previous draw Performed By: #### 0 0071, 13376, 54512 ####[facility] [place] [address], [facility] Performed By: #### 1 69, 53243 ####[facility] [place] [address], [facility] Glucose [Mass/Vol] 124 mg/dL High 70-100 [facility] Comment on above: Performed By: #### 1 69, 15824 ####[facility] Potassium [Moles/Vol] 3.8 mmol/L Normal 3.5-5.1 [facility] Comment on above: Performed By: #### 1 69, 92447 ####[facility] Sodium [Moles/Vol] 138 mmol/L Normal 136-145 [facility] Comment on above: Performed By: #### 1 69, 62696 ####[place] [address] Urea nitrogen [Mass/Vol] 11 mg/dL Normal 7-25 [facility] Comment on above: Performed By: #### 1 69, 92686 ####[place] [address] Sodium [Moles/Vol] 139 mmol/L Normal 138-146 [facility] Comment on above: Order Comment: No: D o not add to previous draw Performed By: #### 0 0071, 96307, 77195 ####[address] Performed By: #### 3 0738 ####[place] [address] [facility] CBC COMPLETE BLOOD COUNTon 0 01-03-2022 Erythrocyte distribution width (RBC) [Ratio] 12.7 % Normal 11.5-15.0 [facility] Comment on above: Order Comment: evalu ate Performed By: #### 5 0608 ####[place] [address] Hematocrit (Bld) [Volume fraction] 30.8 % Low 39.0-50.0 [facility] Comment on above: Order Comment: evalu ate Performed By: #### 5 0608 ####[place] [address] Hemoglobin (Bld) [Mass/Vol] 10.9 g/dL Low 13.0-17.0 [facility] Comment on above: Order Comment: evalu ate Performed By: #### 5 0608 ####[facility] [place] [address], [facility] MCH (RBC) [Entitic mass] 30.1 pg Normal 27.0-33.0 [facility] Comment on above: Order Comment: evalu ate Performed By: #### 5 0608 ####[address] MCHC (RBC) [Mass/Vol] 35.4 g/dL High 32.0-35.0 [facility] Comment on above: Order Comment: evalu ate Performed By: #### 5 0608 ####[address] MCV (RBC) [Entitic vol] 85.1 fL Normal 82.0-98.0 [facility] Comment on above: Order Comment: evalu ate Performed By: #### 5 0608 ####[address] PLAT CNT 135 10*3/uL Low 150-400 [facility] Comment on above: Order Comment: evalu ate Performed By: #### 5 0608 ####[address] RBC (Bld) [#/Vol] 3.62 10*6/uL Low 4.20-5.70 [facility] Comment on above: Order Comment: evalu ate Performed By: #### 5 0608 ####[place] [address], [facility] WBC (Bld) [#/Vol] 14.29 10*3/uL High 4.00-10.60 [facility] Comment on above: Order Comment: evalu ate Performed By: #### 5 0608 ####[facility] [facility].[address] Erythrocyte distribution width (RBC) [Ratio] 12.6 % Normal 11.5-15.0 [facility] Comment on above: Performed By: #### 5 0608 ####[facility] [facility].[address] Hematocrit (Bld) [Volume fraction] 28.9 % Low 39.0-50.0 [facility] Comment on above: Performed By: #### 5 0608 ####[address] Hemoglobin (Bld) [Mass/Vol] 10.3 g/dL Low 13.0-17.0 [facility] Comment on above: Performed By: #### 5 0608 ####[address] MCH (RBC) [Entitic mass] 30.3 pg Normal 27.0-33.0 [facility] Comment on above: Performed By: #### 5 0608 ####[place] [address] [facility].[address] MCHC (RBC) [Mass/Vol] 35.6 g/dL High 32.0-35.0 [facility] Comment on above: Performed By: #### 5 0608 ####[facility] [place] [address].[address] MCV (RBC) [Entitic vol] 85.0 fL Normal 82.0-98.0 [facility] Comment on above: Performed By: #### 5 0608 ####[address] Nucleated RBC/100 WBC (Bld) [Ratio] 0 % Normal 0-0 [facility] Comment on above: Order Comment: evalu ate Performed By: #### 5 0608 ####[facility] [place] [address], [facility] PLAT CNT 127 10*3/uL Low 150-400 [facility] Comment on above: Performed By: #### 5 0608 ####[facility] [place] [address], [facility] RBC (Bld) [#/Vol] 3.40 10*6/uL Low 4.20-5.70 [facility] Comment on above: Performed By: #### 5 0608 ####[facility] [place] [address], [facility] WBC (Bld) [#/Vol] 13.69 10*3/uL High 4.00-10.60 [facility] Comment on above: Performed By: #### 5 0608 ####[facility] [place] [address], [facility] FIBRINOGENon 01-03-2022 FIBRINOGEN 168 mg/dL Normal 150-425 [facility] Comment on above: Performed By: #### 5 7307, 57805, 07301 ####[facility] [place] [address], [facility] LACTATE BLOODon 01-03-2022 Lactate [Moles/Vol] 1.4 mmol/L Normal .5-2.2 [facility] Comment on above: Order Comment: No: D o not add to previous draw Performed By: #### 1 0054 ####[facility] [place] [address], [facility] MAGNESIUM BLOODon 01-03-2022 Magnesium [Mass/Vol] 2.4 mg/dL Normal 1.9-2.7 [facility] Comment on above: Order Comment: No: D o not add to previous draw Performed By: #### 0 0071, 11807, 82763 ####[facility] [facility].[address] Magnesium [Mass/Vol] 2.9 mg/dL High 1.9-2.7 [facility] Comment on above: Performed By: #### 1 0070, 37102 ####[facility] [facility].[address] PERFUSION BLOOD PANELon 06-0 -2021 BASE EXCESS -4.0 mmol/L Low -2.0-3.0 [facility] Comment on above: Performed By: #### 3 0738 ####[facility] [facility].[address] Glucose [Mass/Vol] 129 mg/dL High 70-105 [facility] Comment on above: Performed By: #### 3 0738 ####[place] [address] [facility].[address] Hematocrit (Bld) [Volume fraction] 29 % Low 38-51 [facility] Comment on above: Performed By: #### 3 0738 ####[facility] [facility].[address] Hemoglobin (Bld) [Mass/Vol] 9.9 g/dL Low 12.0-17.0 [facility] Comment on above: Performed By: #### 3 0738 ####[facility] [facility].[address] IONIZED CALCIUM 1.22 mmol/L Normal 1.12-1.32 [facility] Comment on above: Performed By: #### 3 0738 ####[facility] [facility].[address] Oxygen (Bld) [Partial pressure] 115.0 mm[Hg] High 80.0-105.0 [facility] Comment on above: Performed By: #### 3 0738 ####[facility] [place] [address], [facility] PCO2 46.3 mmHg High 35.0-45.0 [facility] Comment on above: Performed By: #### 3 0738 ####[facility] [place] [address], [facility] pH (Bld) 7.29 [pH] Low 7.35-7.45 [facility] Comment on above: Performed By: #### 3 0738 ####[facility] [place] [address], [place] Potassium [Moles/Vol] 3.8 mmol/L Normal 3.5-4.9 [facility] Comment on above: Performed By: #### 3 0738 ####[facility] [place] [address], [place] Sodium [Moles/Vol] 141 mmol/L Normal 138-146 [facility] Comment on above: Performed By: #### 3 0738 ####[facility] [place] [address], [facility] BASE EXCESS -3.0 mmol/L Low -2.0-3.0 [facility] Comment on above: Performed By: #### 3 0738 ####[facility] [place] [address], [facility] Glucose [Mass/Vol] 120 mg/dL High 70-105 [facility] Comment on above: Performed By: #### 3 0738 ####[facility] [place] [address], [place] Hematocrit (Bld) [Volume fraction] 27 % Low 38-51 [facility] Comment on above: Performed By: #### 3 0738 ####[facility] [place] [address], [facility] Hemoglobin (Bld) [Mass/Vol] 9.2 g/dL Low 12.0-17.0 [facility] Comment on above: Performed By: #### 3 0738 ####[facility] [place] [address], [facility] IONIZED CALCIUM 1.27 mmol/L Normal 1.12-1.32 [facility] Comment on above: Performed By: #### 3 0738 ####[facility] [facility] [address], [facility] Oxygen (Bld) [Partial pressure] 215.0 mm[Hg] High 80.0-105.0 [facility] Comment on above: Performed By: #### 3 0738 ####[facility] [place] [address], [facility] PCO2 44.6 mmHg Normal 35.0-45.0 [facility] Comment on above: Performed By: #### 3 0738 ####[facility] [place] [address], [facility] pH (Bld) 7.32 [pH] Low 7.35-7.45 [facility] Comment on above: Performed By: #### 3 0738 ####[facility] [facility] [address], [facility] Potassium [Moles/Vol] 3.9 mmol/L Normal 3.5-4.9 [facility] Comment on above: Performed By: #### 3 0738 ####[facility] [facility] [address], [facility] Sodium [Moles/Vol] 141 mmol/L Normal 138-146 [facility] Comment on above: Performed By: #### 3 0738 ####[facility] [place] [address], [facility] BASE EXCESS 1.0 mmol/L Normal -2.0-3.0 [facility] Comment on above: Performed By: #### 3 0738 ####[facility] Glucose [Mass/Vol] 125 mg/dL High 70-105 [facility] Comment on above: Performed By: #### 3 0738 ####[facility] [facility].[address] Hematocrit (Bld) [Volume fraction] 28 % Low 38-51 [facility] Comment on above: Performed By: #### 3 0738 ####[facility] [facility].[address] Hemoglobin (Bld) [Mass/Vol] 9.5 g/dL Low 12.0-17.0 [facility] Comment on above: Performed By: #### 3 0738 ####[facility] [facility].[address] IONIZED CALCIUM 1.73 mmol/L Critically high 1.12-1.32 [facility] Comment on above: Performed By: #### 3 0738 ####[facility] [facility].[address] Oxygen (Bld) [Partial pressure] 392.0 mm[Hg] High 80.0-105.0 [facility] Comment on above: Performed By: #### 3 0738 ####[facility] [facility].[address] PCO2 42.7 mmHg Normal 35.0-45.0 [facility] Comment on above: Performed By: #### 3 0738 ####[facility] [facility].[address] pH (Bld) 7.39 [pH] Normal 7.35-7.45 [facility] Comment on above: Performed By: #### 3 0738 ####[facility] [place] [address], [facility] Potassium [Moles/Vol] 4.4 mmol/L Normal 3.5-4.9 [facility] Comment on above: Performed By: #### 3 0738 ####[facility] [place] [address], [facility] Sodium [Moles/Vol] 137 mmol/L Low 138-146 [facility] Comment on above: Performed By: #### 3 0738 ####[facility] [place] [address], [facility] BASE EXCESS 2.0 mmol/L Normal -2.0-3.0 [facility] Comment on above: Performed By: #### 3 0738 ####[facility] [place] [address], [facility] Glucose [Mass/Vol] 124 mg/dL High 70-105 [facility] Comment on above: Performed By: #### 3 0738 ####[facility] [place] [address], [facility] Hematocrit (Bld) [Volume fraction] 30 % Low 38-51 [facility] Comment on above: Performed By: #### 3 0738 ####[facility] [place] [address], [facility] Hemoglobin (Bld) [Mass/Vol] 10.2 g/dL Low 12.0-17.0 [facility] Comment on above: Performed By: #### 3 0738 ####[facility] [id number], [facility] IONIZED CALCIUM 1.14 mmol/L Normal 1.12-1.32 [facility] Comment on above: Performed By: #### 3 0738 ####[facility] [place] [address], [facility] Oxygen (Bld) [Partial pressure] 333.0 mm[Hg] High 80.0-105.0 [facility] Comment on above: Performed By: #### 3 0738 ####[facility] [place] [address], [facility] PCO2 41.5 mmHg Normal 35.0-45.0 [facility] Comment on above: Performed By: #### 3 0738 ####[facility] [place] [address], [facility] pH (Bld) 7.41 [pH] Normal 7.35-7.45 [facility] Comment on above: Performed By: #### 3 0738 ####[facility] [place] [address], [facility] Potassium [Moles/Vol] 4.3 mmol/L Normal 3.5-4.9 [facility] Comment on above: Performed By: #### 3 0738 ####[facility] [place] [address], [facility] Sodium [Moles/Vol] 138 mmol/L Normal 138-146 [facility] Comment on above: Performed By: #### 3 0738 ####[facility] [place] [address], [facility] BASE EXCESS 1.0 mmol/L Normal -2.0-3.0 [facility] Comment on above: Performed By: #### 3 0738 ####[facility] [place] [address], [place] Glucose [Mass/Vol] 127 mg/dL High 70-105 [facility] Comment on above: Performed By: #### 3 0738 ####[facility] [place] [address], [place] Hematocrit (Bld) [Volume fraction] 31 % Low 38-51 [facility] Comment on above: Performed By: #### 3 0738 ####[facility] [place] [address], [facility] Hemoglobin (Bld) [Mass/Vol] 10.5 g/dL Low 12.0-17.0 [facility] Comment on above: Performed By: #### 3 0738 ####[facility] [facility] [address], [facility] IONIZED CALCIUM 1.09 mmol/L Low 1.12-1.32 [facility] Comment on above: Performed By: #### 3 0738 ####[facility] [facility] [place] [address], [facility] Oxygen (Bld) [Partial pressure] 351.0 mm[Hg] High 80.0-105.0 [facility] Comment on above: Performed By: #### 3 0738 ####[place] [address] [facility] [place] [address], [facility] PCO2 38.6 mmHg Normal 35.0-45.0 [facility] Comment on above: Performed By: #### 3 0738 ####[place] [address] [place] [address], [facility] pH (Bld) 7.43 [pH] Normal 7.35-7.45 [facility] Comment on above: Performed By: #### 3 0738 ####[facility] [place] [address], [facility] Potassium [Moles/Vol] 4.4 mmol/L Normal 3.5-4.9 [facility] Comment on above: Performed By: #### 3 0738 ####[facility] [place] [address], [facility] Sodium [Moles/Vol] 138 mmol/L Normal 138-146 [facility] Comment on above: Performed By: #### 3 0738 ####[facility] [place] [address], [facility] BASE EXCESS 4.0 mmol/L High -2.0-3.0 [facility] Comment on above: Performed By: #### 3 0738 ####[facility] [place] [address], [facility] Glucose [Mass/Vol] 117 mg/dL High 70-105 [facility] Comment on above: Performed By: #### 3 0738 ####[facility] [place] [address], [facility] Hematocrit (Bld) [Volume fraction] 29 % Low 38-51 [facility] Comment on above: Performed By: #### 3 0738 ####[facility] [place] [address], [facility] Hemoglobin (Bld) [Mass/Vol] 9.9 g/dL Low 12.0-17.0 [facility] Comment on above: Performed By: #### 3 0738 ####[facility] [facility] [address], [facility] IONIZED CALCIUM 1.02 mmol/L Low 1.12-1.32 [facility] Comment on above: Performed By: #### 3 0738 ####[facility] [place] [address], [facility] Oxygen (Bld) [Partial pressure] 531.0 mm[Hg] High 80.0-105.0 [facility] Comment on above: Performed By: #### 3 0738 ####[facility] [address], [facility] PCO2 42.7 mmHg Normal 35.0-45.0 [facility] Comment on above: Performed By: #### 3 0738 ####[facility] [place] [address], [facility] pH (Bld) 7.43 [pH] Normal 7.35-7.45 [facility] Comment on above: Performed By: #### 3 0738 ####[facility] [facility].[address] Potassium [Moles/Vol] 4.1 mmol/L Normal 3.5-4.9 [facility] Comment on above: Performed By: #### 3 0738 ####[facility]3000 [facility].[address] BASE EXCESS 0.0 mmol/L Normal -2.0-3.0 [facility] Comment on above: Performed By: #### 3 0738 ####[place] [address] [facility].[address] Glucose [Mass/Vol] 108 mg/dL High 70-105 [facility] Comment on above: Performed By: #### 3 0738 ####[facility]3000 [facility].[address] Hematocrit (Bld) [Volume fraction] 27 % Low 38-51 [facility] Comment on above: Performed By: #### 3 0738 ####[place] [address] [facility].[address] Hemoglobin (Bld) [Mass/Vol] 9.2 g/dL Low 12.0-17.0 [facility] Comment on above: Performed By: #### 3 0738 ####[facility]3000 [facility].[address] IONIZED CALCIUM 1.04 mmol/L Low 1.12-1.32 [facility] Comment on above: Performed By: #### 3 0738 ####[facility] Oxygen (Bld) [Partial pressure] 46.0 mm[Hg] Normal [facility] Comment on above: Performed By: #### 3 0738 ####[facility] [place] [address], [facility] PCO2 44.8 mmHg Normal 41.0-51.0 [facility] Comment on above: Performed By: #### 3 0738 ####[facility] [place] [address], [facility] pH (Bld) 7.36 [pH] Normal 7.31-7.41 [facility] Comment on above: Performed By: #### 3 0738 ####[facility] [place] [address], [place] Potassium [Moles/Vol] 4.5 mmol/L Normal 3.5-4.9 [facility] Comment on above: Performed By: #### 3 0738 ####[facility] [place] [address], [place] Sodium [Moles/Vol] 140 mmol/L Normal 138-146 [facility] Comment on above: Performed By: #### 3 0738 ####[facility] [place] [address], [facility] BASE EXCESS -1.0 mmol/L Normal -2.0-3.0 [facility] Comment on above: Performed By: #### 3 0738 ####[facility] [place] [address], [facility] Glucose [Mass/Vol] 123 mg/dL High 70-105 [facility] Comment on above: Performed By: #### 3 0738 ####[facility] [place] [address], [facility] Hematocrit (Bld) [Volume fraction] 38 % Normal 38-51 [facility] Comment on above: Performed By: #### 3 0738 ####[facility] [place] [address], [facility] Hemoglobin (Bld) [Mass/Vol] 12.9 g/dL Normal 12.0-17.0 [facility] Comment on above: Performed By: #### 3 0738 ####[facility] [place] [address], [facility] IONIZED CALCIUM 1.27 mmol/L Normal 1.12-1.32 [facility] Comment on above: Performed By: #### 3 0738 ####[facility] [place] [address], [facility] Oxygen (Bld) [Partial pressure] 146.0 mm[Hg] High 80.0-105.0 [facility] Comment on above: Performed By: #### 3 0738 ####[facility] [place] [address], [facility] PCO2 47.8 mmHg High 35.0-45.0 [facility] Comment on above: Performed By: #### 3 0738 ####[facility] [place] [address], [facility] pH (Bld) 7.33 [pH] Low 7.35-7.45 [facility] Comment on above: Performed By: #### 3 0738 ####[facility]3000 [facility] [place] [address], [facility] Potassium [Moles/Vol] 3.8 mmol/L Normal 3.5-4.9 [facility] Comment on above: Performed By: #### 3 0738 ####[facility] [place] [address], [facility] Sodium [Moles/Vol] 141 mmol/L Normal 138-146 [facility] Comment on above: Performed By: #### 3 0738 ####[facility] [place] [address], [facility] BASE EXCESS 0.0 mmol/L Normal -2.0-3.0 [facility] Comment on above: Performed By: #### 3 0738 ####[facility] Glucose [Mass/Vol] 130 mg/dL High 70-105 [facility] Comment on above: Performed By: #### 3 0738 ####[facility]3000 [facility].[address] Hematocrit (Bld) [Volume fraction] 42 % Normal 38-51 [facility] Comment on above: Performed By: #### 3 0738 ####[facility]3000 [facility].[address] Hemoglobin (Bld) [Mass/Vol] 14.3 g/dL Normal 12.0-17.0 [facility] Comment on above: Performed By: #### 3 0738 ####[place] [address] [facility].[address] IONIZED CALCIUM 1.30 mmol/L Normal 1.12-1.32 [facility] Comment on above: Performed By: #### 3 0738 ####[place] [address] [facility].[address] Oxygen (Bld) [Partial pressure] 218.0 mm[Hg] High 80.0-105.0 [facility] Comment on above: Performed By: #### 3 0738 ####[facility]3000 [facility].[address] PCO2 43.5 mmHg Normal 35.0-45.0 [facility] Comment on above: Performed By: #### 3 0738 ####[place] [address] [facility].[address] pH (Bld) 7.38 [pH] Normal 7.35-7.45 [facility] Comment on above: Performed By: #### 3 0738 ####[facility] [place] [address], [place] Potassium [Moles/Vol] 3.8 mmol/L Normal 3.5-4.9 [facility] Comment on above: Performed By: #### 3 0738 ####[facility] [place] [address], [place] Sodium [Moles/Vol] 141 mmol/L Normal 138-146 [facility] Comment on above: Performed By: #### 3 0738 ####[facility] [place] [address], [place] PHOSPHORUS BLOODon Phosphate [Mass/Vol] 3.4 mg/dL Normal 2.5-5.0 [facility] Comment on above: Order Comment: No: D o not add to previous draw Performed By: #### 0 0071, 67039, 13392 ####[facility] [place] [address], [place] POC GLUCOSE LABon 01-03-2022 Glucose [Mass/Vol] 156 mg/dL High 70-100 [facility] Comment on above: Performed By: #### 8 5499 ####[facility] [place] [address], [place] Glucose [Mass/Vol] 160 mg/dL High 70-100 [facility] Comment on above: Performed By: #### 8 5499 ####[facility] [place] [address], [place] Glucose [Mass/Vol] 146 mg/dL High 70-100 [facility] Comment on above: Performed By: #### 8 5499 ####[facility] [place] [address], [place] Glucose [Mass/Vol] 135 mg/dL High 70-100 [facility] Comment on above: Performed By: #### 8 5499 ####[facility]3000 [place] [address], [facility] Glucose [Mass/Vol] 136 mg/dL High 70-100 [facility] Comment on above: Performed By: #### 8 5499 ####[facility] [place] [address], [facility] PORTABLE CHEST 1 VIEWon PORTABLE CHEST 1 VIEW [facility] Department of Radiology [address] [place] [address] Patient Name: OSWALD OCHOA : 1955 Sex: M Age: Race: White Pt. Location: [place] [address] Patient Status: I Ordered Date: 01/03/2022 4:40:00 [...] AP(PA) view was obtained. COMPARISON: None FINDINGS: [place]-Perry catheter on the right tip in superior [...] lobe Electronically signed: Tang Pino. Transcribed by: [id number], User Resident: Electronically Signed by: TANG PINO @ 01/03/2022 06:07 PM Normal [facility] Comment on above: Order Comment: Check Chest Tube Position, ON ARRIVAL TO CVU PROTHROMBIN TIMEon 2 INR Coag (PPP) [Relative time] 1.28 {INR} High 0.91-1.16 [facility] Comment on above: Order Comment: [...] CHEST 1995;108:231S-246S. Performed By: #### 5 7307, 61028 ####[facility] PT Coag (PPP) [Time] 15.9 s High 12.3-14.8 [facility] Comment on above: Order Comment: No: D o not add to previous draw Result Comment: ALL RESULTS MUST BE INTERPRETED WITH RESPECT TO BLOOD DRAWING ARTIFACT OR DILUTION ERROR OF ANTICOAGULANT AT THE TIME OF SAMPLING. Performed By: #### 5 7307, 73291 ####[facility] INR Coag (PPP) [Relative time] 1.45 {INR} High 0.91-1.16 [facility] Comment on above: Result Comment: ACCC P [...] CHEST 1995;108:231S-246S. Performed By: #### 5 7307, 30137, 29762 ####[facility] PT Coag (PPP) [Time] 17.5 s High 12.3-14.8 [facility] Comment on above: Result Comment: ALL RESULTS MUST BE INTERPRETED WITH RESPECT TO BLOOD DRAWING ARTIFACT OR DILUTION ERROR OF ANTICOAGULANT AT THE TIME OF SAMPLING. Performed By: #### 5 7307, 45874, 54742 ####[facility] [place] [address], [facility] RBC'S 2 UNITSon 01-03-2022 CROSSMATCH INTERP 1 COMP Normal [facility] Comment on above: Performed By: #### 8 6002 ####[facility] [place] [address], [facility] CROSSMATCH INTERP 2 COMP Normal [facility] Comment on above: Performed By: #### 8 6002 ####[facility] [place] [address], [facility] PRODUCT CODE 1 E0685 Normal [facility] Comment on above: Performed By: #### 8 6002 ####[facility] [place] [address], [place] PRODUCT CODE 2 E0336 Normal [facility] Comment on above: Performed By: #### 8 6002 ####[facility] [place] [address], [facility] PRODUCT STATUS 1 RE Normal [facility] Comment on above: Result Comment: Resu lt changed by IF on 01/03/2022 12:35. The previous value was XM. Result changed by IF on 01/03/2022 17:59. The previous value was IS. Result changed by IF on 01/06/2022 07:17. The previous value was XM. Performed By: #### 8 6002 ####[facility] [place] [address], [facility] PRODUCT STATUS 2 RE Normal [facility] Comment on above: Result Comment: Resu lt changed by IF on 01/03/2022 12:35. The previous value was XM. Result changed by IF on 01/03/2022 17:59. The previous value was IS. Result changed by IF on 01/06/2022 07:17. The previous value was XM. Performed By: #### 8 6002 ####[facility] [place] [address], [place] UNIT ABO 1 O Normal [facility] Comment on above: Performed By: #### 8 6002 ####[facility] UNIT ABO 2 O Normal [facility] Comment on above: Performed By: #### 8 6002 ####[facility] [place] [address].[address] UNIT ID 1 [id number] Normal [facility] Comment on above: Performed By: #### 8 6002 ####[facility]3000 [facility].[address] UNIT ID 2 [id number] Normal [facility] Comment on above: Performed By: #### 8 6002 ####[address] UNIT RH 1 Negative Normal [facility] Comment on above: Performed By: #### 8 6002 ####[facility] UNIT RH 2 Negative Normal [facility] Comment on above: Performed By: #### 8 6002 ####[address] APTTon 01-02-2022 aPTT Coag (Bld) [Time] 32.1 s Normal 25.0-35.0 [facility] Comment on above: Order Comment: post thoracotomy [...] THIS PURPOSE. Performed By: #### 5 7307, 82367 ####[facility] [place] [address] BASIC METABOLIC PANELon 06- Calcium [Mass/Vol] 9.5 mg/dL Normal 8.6-10.3 [facility] Comment on above: Order Comment: No: D o not add to previous draw Performed By: #### 1 0070, 91887, 99546, 54630 ####[facility] [place] [address], [facility] Chloride [Moles/Vol] 105 mmol/L Normal 98-107 [facility] Comment on above: Order Comment: No: D o not add to previous draw Performed By: #### 1 0070, 33855, 16042, 14208 ####[facility] [place] [address], [place] CO2 [Moles/Vol] 24 mmol/L Normal 21-31 [facility] Comment on above: Order Comment: No: D o not add to previous draw Performed By: #### 1 0070, 08330, 77311, 60287 ####[facility] [place] [address], [facility] Creatinine [Mass/Vol] 0.93 mg/dL Normal 0.70-1.30 [facility] Comment on above: Order Comment: No: D o not add to previous draw Performed By: #### 1 0070, 10428, 50040, 06973 ####[facility] [place] [address], [facility] GFR/1.73 sq M.predicted among blacks MDRD (S/P/Bld) [Vol rate/Area] mL/min/{1.73_m2} Normal >60 [facility] Comment on above: Order Comment: No: D o not add to previous draw Performed By: #### 1 0070, 17483, 49448, 69482 ####[facility] [place] [address], [place] GFR/1.73 sq M.predicted among non-blacks MDRD (S/P/Bld) [Vol rate/Area] mL/min/{1.73_m2} Normal >60 [facility] Comment on above: Order Comment: No: D o not add to previous draw Performed By: #### 1 0070, 71731, 22598, 09600 ####[facility] [place] [address], [facility] Glucose [Mass/Vol] 127 mg/dL High 70-100 [facility] Comment on above: Order Comment: No: D o not add to previous draw Performed By: #### 1 0070, 28067, 22785, 90344 ####[facility] [place] [address], [facility] Potassium [Moles/Vol] 3.9 mmol/L Normal 3.5-5.1 [facility] Comment on above: Order Comment: No: D o not add to previous draw Performed By: #### 1 0070, 88489, 12292, 74580 ####[facility] [place] [address], [facility] Sodium [Moles/Vol] 138 mmol/L Normal 136-145 [facility] Comment on above: Order Comment: No: D o not add to previous draw Performed By: #### 1 0070, 41428, 59805, 48563 ####[facility] [place] [address], [facility] Urea nitrogen [Mass/Vol] 13 mg/dL Normal 7-25 [facility] Comment on above: Order Comment: No: D o not add to previous draw Performed By: #### 1 0070, 95413, 58718, 68661 ####[facility] [place] [address], [place] CBC COMPLETE BLOOD COUNTon 0 - Erythrocyte distribution width (RBC) [Ratio] 12.8 % Normal 11.5-15.0 [facility] Comment on above: Order Comment: No: D o not add to previous draw Performed By: #### 5 0608 ####[facility] Hematocrit (Bld) [Volume fraction] 41.4 % Normal 39.0-50.0 [facility] Comment on above: Order Comment: No: D o not add to previous draw Performed By: #### 5 0608 ####[facility]3000 [facility].[address] Hemoglobin (Bld) [Mass/Vol] 14.6 g/dL Normal 13.0-17.0 [facility] Comment on above: Order Comment: No: D o not add to previous draw Performed By: #### 5 0608 ####[facility] MCH (RBC) [Entitic mass] 30.1 pg Normal 27.0-33.0 [facility] Comment on above: Order Comment: No: D o not add to previous draw Performed By: #### 5 0608 ####[facility]3000 [facility].[address] MCHC (RBC) [Mass/Vol] 35.3 g/dL High 32.0-35.0 [facility] Comment on above: Order Comment: No: D o not add to previous draw Performed By: #### 5 0608 ####[address] MCV (RBC) [Entitic vol] 85.4 fL Normal 82.0-98.0 [facility] Comment on above: Order Comment: No: D o not add to previous draw Performed By: #### 5 0608 ####[facility]3000 [facility].[address] Nucleated RBC/100 WBC (Bld) [Ratio] 0 % Normal 0-0 [facility] Comment on above: Order Comment: No: D o not add to previous draw Performed By: #### 5 0608 ####[facility]3000 [facility].[address] PLAT CNT 218 10*3/uL Normal 150-400 [facility] Comment on above: Order Comment: No: D o not add to previous draw Performed By: #### 5 0608 ####[facility] RBC (Bld) [#/Vol] 4.85 10*6/uL Normal 4.20-5.70 [facility] Comment on above: Order Comment: No: D o not add to previous draw Performed By: #### 5 0608 ####[facility]3000 [place] [address], [facility] WBC (Bld) [#/Vol] 6.95 10*3/uL Normal 4.00-10.60 [facility] Comment on above: Order Comment: No: D o not add to previous draw Performed By: #### 5 0608 ####[facility]3000 [facility].[address] LIPID PROFILEon 01-02-2022 Cholesterol [Mass/Vol] 110 mg/dL Low 120-200 [facility] Comment on above: Order Comment: Check Chest Tube Position, ON ARRIVAL TO CVU Result Comment: CHOL ESTEROL REFERENCE RANGE: 20 YEARS AND OLDER CARDIOVASCULAR RISK Less than 200 mg/dl Low Risk 200 to 239 mg/dl Borderline Risk 240 mg/dl and greater High Risk Performed By: #### 4 6413 ####[facility]3000 [facility].[address] Cholesterol in HDL [Mass/Vol] 29 mg/dL Normal 23-92 [facility] Comment on above: Order Comment: Check Chest Tube Position, ON ARRIVAL TO CVU Result Comment: Slig ht variation in normal range could be due to gender and/or age. HDL CHOLESTEROL REFERENCE RANGE: 20 years and older Cardiovascular Risk > or =60 mg/dL Desirable 40 TO 59 mg/dL Low Risk <40 mg/dL High Risk Performed By: #### 4 6413 ####[facility]3000 [place] [address], [facility] Cholesterol in LDL [Mass/Vol] 56 mg/dL Normal 0-130 [facility] Comment on above: Order Comment: Check Chest Tube Position, ON ARRIVAL TO CVU Result Comment: LDL IS A CALCULATION LDL IS ONLY VALID IF THE TRIG IS LESS THAN 400. Performed By: #### 4 6413 ####[facility] [place] [address], [facility] Cholesterol.total/ Cholesterol in HDL [Mass ratio] 3.8 {ratio} Normal .0-4.5 [facility] Comment on above: Order Comment: Check Chest Tube Position, ON ARRIVAL TO CVU Performed By: #### 4 6413 ####[facility] [facility] [place] [address], [facility] NON-HDL CHOLESTEROL 81 mg/dL Normal [facility] Comment on above: Order Comment: Check Chest Tube Position, ON ARRIVAL TO CVU Performed By: #### 4 6413 ####[facility], [place] [address] [place] [address] Triglyceride [Mass/Vol] 124 mg/dL Normal 40-149 [facility] Comment on above: Order Comment: Check Chest Tube Position, ON ARRIVAL TO CVU Result Comment: TRIG LYCERIDE REFERENCE RANGE: 20 YEARS AND OLDER CARDIOVASCULAR RISK LESS THAN 150 mg/dl LOW RISK 150 TO 199 mg/dl BORDERLINE RISK 200 mg/dl AND GREATER HIGH RISK Performed By: #### 4 6413 ####[facility] [facility] [place] [address], [facility] VLDL CHOL 25 mg/dL Normal 0-40 [facility] Comment on above: Order Comment: Check Chest Tube Position, ON ARRIVAL TO CVU Performed By: #### 4 6413 ####[facility] [place] [address], [facility] MAGNESIUM BLOODon 01-02-2022 Magnesium [Mass/Vol] 2.1 mg/dL Normal 1.9-2.7 [facility] Comment on above: Order Comment: No: D o not add to previous draw Performed By: #### 1 0070, 72796, 40350, 87877 ####[facility] [place] [address], [place] PHOSPHORUS BLOODon 2 Phosphate [Mass/Vol] 3.9 mg/dL Normal 2.5-5.0 [facility] Comment on above: Order Comment: No: D o not add to previous draw Performed By: #### 1 0070, 72156, 45215, 18611 ####[facility] [place] [address], [place] POC GLUCOSE LABon 01-02-2022 Glucose [Mass/Vol] 149 mg/dL High 70-100 [facility] Comment on above: Performed By: #### 8 5499 ####[facility] [place] [address], [place] Glucose [Mass/Vol] 129 mg/dL High 70-100 [facility] Comment on above: Performed By: #### 8 5499 ####[facility] [place] [address], [place] Glucose [Mass/Vol] 203 mg/dL High 70-100 [facility] Comment on above: Performed By: #### 8 5499 ####[facility] [place] [address], [place] Glucose [Mass/Vol] 139 mg/dL High 70-100 [facility] Comment on above: Performed By: #### 8 5499 ####[facility] [place] [address], [place] Glucose [Mass/Vol] 153 mg/dL High 70-100 [facility] Comment on above: Performed By: #### 8 5499 ####[facility] [place] [address], [place] POC SARS COV2 ANTIGEN NEGATI VEon 01-02-2022 POC SARS COV2 ANTIGEN NEG Negative Normal NEGATIVE [facility] Comment on above: Result Comment: Nega tive [...] antigen from SARS-CoV-2 in direct nasopharyngeal swab (SENIOR [employer]) specimens from individuals who are suspected of [...] of Accreditation. Performed By: #### 3 2044 ####[address] PORTABLE CHEST 1 VIEWon PORTABLE CHEST 1 VIEW [facility] Department of Radiology [address] [place] [id number] Patient Name: OSWALD OCHOA : 1955 Sex: M Age: Race: White Pt. Location: [address] [place] [address] Patient Status: I Ordered Date: 01/02/2022 9:50:00 [...] unchanged Electronically signed: Tang Pino. Transcribed by: [email or web address], User Resident: Electronically Signed by: TANG PINO @ 01/02/2022 10:53 AM Normal [facility] Comment on above: Order Comment: post thoracotomy PROTHROMBIN TIMEon 2 INR Coag (PPP) [Relative time] 1.01 {INR} Normal 0.91-1.16 [facility] Comment on above: Order Comment: post thoracotomy [...] CHEST 1995;108:231S-246S. Performed By: #### 5 7307, 16310 ####[facility] PT Coag (PPP) [Time] 13.3 s Normal 12.3-14.8 [facility] Comment on above: Order Comment: post thoracotomy Result Comment: ALL RESULTS MUST BE INTERPRETED WITH RESPECT TO BLOOD DRAWING ARTIFACT OR DILUTION ERROR OF ANTICOAGULANT AT THE TIME OF SAMPLING. Performed By: #### 5 7307, [address]29 ####[place] [address] [facility].[address] RBC'S 2 UNITSon 01-02-2022 CROSSMATCH INTERP 1 COMP Normal [facility] Comment on above: Performed By: #### 8 6002 ####[place] [address] [facility].[address] CROSSMATCH INTERP 2 COMP Normal [facility] Comment on above: Performed By: #### 8 6002 ####[facility]3000 [facility].[address] PRODUCT CODE 1 E0336 Normal [facility] Comment on above: Performed By: #### 8 6002 ####[facility]3000 [facility].[address] PRODUCT CODE 2 E0336 Normal [facility] Comment on above: Performed By: #### 8 6002 ####[address] PRODUCT STATUS 1 RE Normal [facility] Comment on above: Result Comment: Resu lt changed by IF on 01/03/2022 12:35. The previous value was XM. Result changed by IF on 01/03/2022 17:59. The previous value was IS. Result changed by IF on 01/06/2022 07:17. The previous value was XM. Performed By: #### 8 6002 ####[facility] [place] [address], [facility] PRODUCT STATUS 2 RE Normal [facility] Comment on above: Result Comment: Resu lt changed by IF on 01/03/2022 12:35. The previous value was XM. Result changed by IF on 01/03/2022 17:59. The previous value was IS. Result changed by IF on 01/06/2022 07:17. The previous value was XM. Performed By: #### 8 6002 ####[facility] [place] [address], [facility] UNIT ABO 1 O Normal [facility] Comment on above: Performed By: #### 8 6002 ####[facility] [place] [address], [place] UNIT ABO 2 O Normal [facility] Comment on above: Performed By: #### 8 6002 ####[facility]3000 [facility] [address], [place] UNIT ID 1 [id number] Normal [facility] Comment on above: Performed By: #### 8 6002 ####[facility] [place] [address], [place] UNIT ID 2 [id number] Normal [facility] Comment on above: Performed By: #### 8 6002 ####[facility] [place] [address], [place] UNIT RH 1 Negative Normal [facility] Comment on above: Performed By: #### 8 6002 ####[facility]3000 [place] [address], [facility] UNIT RH 2 Negative Normal [facility] Comment on above: Performed By: #### 8 6002 ####[place] [address] [facility].[address] TROPONIN-Ion 01-02-2022 Troponin I.cardiac [Mass/Vol] 0.00 ng/mL Normal 0.00-0.04 [facility] Comment on above: Result Comment: REFE RENCE RANGES: 0.00 - 0.04 ng/ml NORMAL 0.05 - 0.50 ng/ml INDETERMINATE > 0.50 ng/ml CONSISTENT WITH AN M.I. Performed By: #### 1 0070, 57954, [address]297, 63847 ####[place] [address] [facility].[address] TYPE AND SCREENon 01-02-2022 ABO INTERPRETATION O Normal [facility] Comment on above: Performed By: #### 6 2586 ####[facility]3000 [facility].[address] RH INTERPRETATION Negative Normal [facility] Comment on above: Performed By: #### 6 2586 ####[address] URINALYSIS REFLEXon 01-03-20 22 Appearance (U) CLEAR Normal CLEAR [facility] Comment on above: Order Comment: No: D o not add to previous drawCriteria for reflexing a culture was not met. Please call the lab [id number] within 24 hours of collection time if culture is needed Performed By: #### 3 0965 ####[address] [place] [address], [facility] Bilirubin Ql (U) Negative Normal NEGATIVE [facility] Comment on above: Order Comment: No: D o not add to previous drawCriteria for reflexing a culture was not met. Please call the lab [email or web address] within 24 hours of collection time if culture is needed Performed By: #### 3 0965 ####[facility]3000 [facility].[place] [id number], [facility] Color (U) YELLOW Normal YELLOW [facility] Comment on above: Order Comment: No: D o not add to previous drawCriteria for reflexing a culture was not met. Please call the lab [id number] within 24 hours of collection time if culture is needed Performed By: #### 3 0965 ####[facility]3000 [facility].[place] [id number], [facility] EPIS NONE SEEN Normal FEW,OCC,NO NE SEEN [facility] Comment on above: Order Comment: No: D o not add to previous drawCriteria for reflexing a culture was not met. Please call the lab [id number] within 24 hours of collection time if culture is needed Performed By: #### 3 0965 ####[address] [place] [address], [facility] Glucose Ql (U) Negative Normal NEGATIVE [facility] Comment on above: Order Comment: No: D o not add to previous drawCriteria for reflexing a culture was not met. Please call the lab [id number] within 24 hours of collection time if culture is needed Performed By: #### 3 0965 ####[place] [address] [place] [address], [facility] Hemoglobin Ql (U) Negative Normal NEGATIVE [facility] Comment on above: Order Comment: No: D o not add to previous drawCriteria for reflexing a culture was not met. Please call the lab [id number] within 24 hours of collection time if culture is needed Performed By: #### 3 0965 ####[facility] [place] [address].[place] [address], [facility] KETONE Negative Normal NEGATIVE [facility] Comment on above: Order Comment: No: D o not add to previous drawCriteria for reflexing a culture was not met. Please call the lab [id number] within 24 hours of collection time if culture is needed Performed By: #### 3 0965 ####[facility] [place] [address], [facility] [place] ASIF Negative Normal NEGATIVE [facility] Comment on above: Order Comment: No: D o not add to previous drawCriteria for reflexing a culture was not met. Please call the lab [id number] within 24 hours of collection time if culture is needed Performed By: #### 3 0965 ####[facility] [place] [address], [facility] Nitrite Ql (U) Negative Normal NEGATIVE [facility] Comment on above: Order Comment: No: D o not add to previous drawCriteria for reflexing a culture was not met. Please call the lab [id number] within 24 hours of collection time if culture is needed Performed By: #### 3 0965 ####[facility]3000 [place] [address], [facility] pH (U) 7.0 [pH] Normal 5.0-8.0 [facility] Comment on above: Order Comment: No: D o not add to previous drawCriteria for reflexing a culture was not met. Please call the lab [id number] within 24 hours of collection time if culture is needed Performed By: #### 3 0965 ####[facility]3000 [place] [address], [facility] Protein Ql (U) Negative Normal NEGATIVE [facility] Comment on above: Order Comment: No: D o not add to previous drawCriteria for reflexing a culture was not met. Please call the lab [id number] within 24 hours of collection time if culture is needed Performed By: #### 3 0965 ####[facility]3000 [place] [address], [facility] RBC NONE SEEN Normal NONE SEEN [facility] Comment on above: Order Comment: No: D o not add to previous drawCriteria for reflexing a culture was not met. Please call the lab [id number] within 24 hours of collection time if culture is needed Performed By: #### 3 0965 ####[facility]3000 [facility].[address] SPEC GRAV 1.009 Low 1.015-1.02 0 [facility] Comment on above: Order Comment: No: D o not add to previous drawCriteria for reflexing a culture was not met. Please call the lab [id number] within 24 hours of collection time if culture is needed Performed By: #### 3 0965 ####[facility]3000 [facility].[address] UA COMMENT 2 UROBILINOGEN (E.U./DL)= 2.0 Normal [facility] Comment on above: Order Comment: No: D o not add to previous drawCriteria for reflexing a culture was not met. Please call the lab [id number] within 24 hours of collection time if culture is needed Performed By: #### 3 0965 ####[facility]3000 [facility].[address] WBC UA NONE SEEN Normal NONE SEEN [facility] Comment on above: Order Comment: No: D o not add to previous drawCriteria for reflexing a culture was not met. Please call the lab [id number] within 24 hours of collection time if culture is needed Performed By: #### 3 0965 ####[facility]3000 [facility].[address] APTTon 01-01-2022 aPTT Coag (Bld) [Time] 31.6 s Normal 25.0-35.0 [facility] Comment on above: Order Comment: post thoracotomy [...] THIS PURPOSE. Performed By: #### 5 6101, 34353 ####[facility]3000 [place] [address], [facility] BASIC METABOLIC PANELon 06-0 Calcium [Mass/Vol] 9.6 mg/dL Normal 8.6-10.3 [facility] Comment on above: Order Comment: Check Chest Tube Position, ON ARRIVAL TO CVU Performed By: #### 3 5200, 26761, 55210, 17568 ####[facility] [place] [address], [facility] Chloride [Moles/Vol] 105 mmol/L Normal 98-107 [facility] Comment on above: Order Comment: Check Chest Tube Position, ON ARRIVAL TO CVU Performed By: #### 3 5200, 10284, 56971, 73657 ####[facility] [place] [address], [facility] CO2 [Moles/Vol] 25 mmol/L Normal 21-31 [facility] Comment on above: Order Comment: Check Chest Tube Position, ON ARRIVAL TO CVU Performed By: #### 3 5200, 85287, 09781, 46876 ####[facility] [place] [address], [facility] Creatinine [Mass/Vol] 1.03 mg/dL Normal 0.70-1.30 [facility] Comment on above: Order Comment: Check Chest Tube Position, ON ARRIVAL TO CVU Performed By: #### 3 5200, 02337, 07988, 13305 ####[facility] [place] [address], [facility] GFR/1.73 sq M.predicted among blacks MDRD (S/P/Bld) [Vol rate/Area] mL/min/{1.73_m2} Normal >60 [facility] Comment on above: Order Comment: Check Chest Tube Position, ON ARRIVAL TO CVU Performed By: #### 3 5200, 93156, 16083, 38970 ####[facility] [place] [address], [place] GFR/1.73 sq M.predicted among non-blacks MDRD (S/P/Bld) [Vol rate/Area] mL/min/{1.73_m2} Normal >60 [facility] Comment on above: Order Comment: Check Chest Tube Position, ON ARRIVAL TO CVU Performed By: #### 3 5200, 20175, 75157, 81864 ####[facility] [place] [address], [facility] Glucose [Mass/Vol] 101 mg/dL High 70-100 [facility] Comment on above: Order Comment: Check Chest Tube Position, ON ARRIVAL TO CVU Performed By: #### 3 5200, 68712, 10653, 62573 ####[facility] [place] [address], [facility] Potassium [Moles/Vol] 3.9 mmol/L Normal 3.5-5.1 [facility] Comment on above: Order Comment: Check Chest Tube Position, ON ARRIVAL TO CVU Performed By: #### 3 5200, 96908, 64613, 03557 ####[facility] [place] [address], [facility] Sodium [Moles/Vol] 138 mmol/L Normal 136-145 [facility] Comment on above: Order Comment: Check Chest Tube Position, ON ARRIVAL TO CVU Performed By: #### 3 5200, 43655, 01036, 67853 ####[facility] [place] [address], [facility] Urea nitrogen [Mass/Vol] 13 mg/dL Normal 7-25 [facility] Comment on above: Order Comment: Check Chest Tube Position, ON ARRIVAL TO CVU Performed By: #### 3 5200, 73425, 73417, 54383 ####[facility] [place] [address], [place] BNP (B-TYPE NATRIURETIC PEPT [place])on 01-01-2022 Natriuretic peptide B (Bld) [Mass/Vol] 19 pg/mL Normal 0-100 [facility] Comment on above: Order Comment: Check Chest Tube Position Result Comment: Give n the appropriate clinical setting a BNP result of >100 pg/mL indicates congestive heart failure. Performed By: #### 8 5123 ####[facility] CBC W/DIFFon 01-01-2022 ABS IMM GRANS 0.0 10*3/uL Normal 0.0-0.2 [facility] Comment on above: Performed By: #### 5 0103 ####[facility] ABS NEUTROPHILS 4.9 10*3/uL Normal 1.6-7.6 [facility] Comment on above: Performed By: #### 5 0103 ####[place] [address] [address] Basophils (Bld) [#/Vol] 0.0 10*3/uL Normal 0.0-0.2 [facility] Comment on above: Performed By: #### 5 0103 ####[place] [address] [address] Basophils/100 WBC (Bld) 0.5 % Normal 0.0-1.0 [facility] Comment on above: Performed By: #### 5 0103 ####[facility] [place] [address], [facility] Eosinophils (Bld) [#/Vol] 0.1 10*3/uL Normal 0.0-0.5 [facility] Comment on above: Performed By: #### 5 0103 ####[address] Eosinophils/100 WBC (Bld) 1.8 % Normal 0.0-6.0 [facility] Comment on above: Performed By: #### 5 0103 ####[address] [place] [address], [place] Erythrocyte distribution width (RBC) [Ratio] 12.6 % Normal 11.5-15.0 [facility] Comment on above: Performed By: #### 5 3 ####[facility] Hematocrit (Bld) [Volume fraction] 40.4 % Normal 39.0-50.0 [facility] Comment on above: Performed By: #### 102 ####[address] Hemoglobin (Bld) [Mass/Vol] 14.2 g/dL Normal 13.0-17.0 [facility] Comment on above: Performed By: #### 102 ####[address] IMMATURE GRANS 0.3 % Normal 0.0-1.0 [facility] Comment on above: Performed By: #### 102 ####[address] Lymphocytes (Bld) [#/Vol] 2.2 10*3/uL Normal 1.2-4.0 [facility] Comment on above: Performed By: #### 3 ####[address] Lymphocytes/100 WBC (Bld) 28.0 % Normal 20.0-45.0 [facility] Comment on above: Performed By: #### 5 3 ####[address] MCH (RBC) [Entitic mass] 30.1 pg Normal 27.0-33.0 [facility] Comment on above: Performed By: #### 3 ####[address] [place] [address], [place] MCHC (RBC) [Mass/Vol] 35.1 g/dL High 32.0-35.0 [facility] Comment on above: Performed By: #### 5 0103 ####[facility] MCV (RBC) [Entitic vol] 85.6 fL Normal 82.0-98.0 [facility] Comment on above: Performed By: #### 5 0103 ####[facility] Monocytes (Bld) [#/Vol] 0.7 10*3/uL Normal 0.1-1.0 [facility] Comment on above: Performed By: #### 3 ####[address] MONOS 8.5 % Normal 5.0-12.0 [facility] Comment on above: Performed By: #### 5 3 ####[facility] Neutrophils/100 WBC (Bld) 60.9 % Normal 40.0-72.0 [facility] Comment on above: Performed By: #### 5 3 ####[place] [address] [address] Nucleated RBC/100 WBC (Bld) [Ratio] 0 % Normal 0-0 [facility] Comment on above: Performed By: #### 5 0103 ####[facility] [place] [address], [facility] PLAT CNT 237 10*3/uL Normal 150-400 [facility] Comment on above: Performed By: #### 5 3 ####[facility] RBC (Bld) [#/Vol] 4.72 10*6/uL Normal 4.20-5.70 [facility] Comment on above: Performed By: #### 5 0103 ####[facility]3000 [facility].[address] WBC (Bld) [#/Vol] 7.96 10*3/uL Normal 4.00-10.60 [facility] Comment on above: Performed By: #### 5 0103 ####[facility]3000 [facility].[address] HEMOGLOBIN A1Con 01-01-2022 Glucose [Moles/Vol] 137 mmol/L Normal [facility] Comment on above: Order Comment: evalu ate Performed By: #### 3 1791 ####[place] [address] [facility].[address] HbA1c (Bld) [Mass fraction] 6.4 % High 4.0-6.0 [facility] Comment on above: Order Comment: evalu ate Performed By: #### 3 1791 ####[place] [address] [facility].[address] MAGNESIUM BLOODon 01-01-2022 Magnesium [Mass/Vol] 2.1 mg/dL Normal 1.9-2.7 [facility] Comment on above: Order Comment: Check Chest Tube Position, ON ARRIVAL TO CVU Performed By: #### 3 5200, 77893, 57529, 03419 ####[facility]3000 [place] [address], [facility] PHOSPHORUS BLOODon Phosphate [Mass/Vol] 3.7 mg/dL Normal 2.5-5.0 [facility] Comment on above: Order Comment: Check Chest Tube Position, ON ARRIVAL TO CVU Performed By: #### 3 5200, 35499, 23764, 51186 ####[facility] [facility] [place] [address], [facility] POC GLUCOSE LABon 01-01-2022 Glucose [Mass/Vol] 192 mg/dL High 70-100 [facility] Comment on above: Performed By: #### 8 5499 ####[facility] [place] [address], [facility] Glucose [Mass/Vol] 124 mg/dL High 70-100 [facility] Comment on above: Performed By: #### 8 5499 ####[facility] [facility] [place] [address], [facility] PORTABLE CHEST 1 VIEWon PORTABLE CHEST 1 VIEW [facility] Department of Radiology [address] [place] [id number] Patient Name: OSWALD OCHOA : 1955 Sex: M Age: Race: White Pt. Location: [id number] Patient Status: I Ordered Date: 01/01/2022 4:50:00 [...] unremarkable. Electronically signed: Dia Hodges. Transcribed by: [email or web address], User Resident: Electronically Signed by: DIA HODGES @ 01/01/2022 05:51 PM Normal [facility] PROTHROMBIN TIMEon INR Coag (PPP) [Relative time] 0.99 {INR} Normal 0.91-1.16 [facility] Comment on above: Order Comment: post thoracotomy [...] CHEST 1995;108:231S-246S. Performed By: #### 5 6101, 83356 ####[facility]3000 [place] [address], [facility] PT Coag (PPP) [Time] 13.1 s Normal 12.3-14.8 [facility] Comment on above: Order Comment: post thoracotomy Result Comment: ALL RESULTS MUST BE INTERPRETED WITH RESPECT TO BLOOD DRAWING ARTIFACT OR DILUTION ERROR OF ANTICOAGULANT AT THE TIME OF SAMPLING. Performed By: #### 5 6101, 03062 ####[facility] [place] [address], [facility] TROPONIN-Ion 01-01-2022 Troponin I.cardiac [Mass/Vol] 0.00 ng/mL Normal 0.00-0.04 [facility] Comment on above: Order Comment: Check Chest Tube Position Result Comment: REFE RENCE RANGES: 0.00 - 0.04 ng/ml NORMAL 0.05 - 0.50 ng/ml INDETERMINATE > 0.50 ng/ml CONSISTENT WITH AN M.I. Performed By: #### 3 5200 ####[facility] Troponin I.cardiac [Mass/Vol] 0.00 ng/mL Normal 0.00-0.04 [facility] Comment on above: Order Comment: Check Chest Tube Position, ON ARRIVAL TO CVU Result Comment: REFE RENCE RANGES: 0.00 - 0.04 ng/ml NORMAL 0.05 - 0.50 ng/ml INDETERMINATE > 0.50 ng/ml CONSISTENT WITH AN M.I. Performed By: #### 3 5200, 81790, 18831, 69648 ####[facility] Cardiovascular Lab Reporton 12-19-2021 Cardiovascular Lab Report [facility] Patient Name: Don [facility] MR #: [id number] Physician: Alissa Department of MD Darshan Medicine Service Date: 12/18/2021 Division of Birthdate: 1955 Cardiology Room #: Adult Cardiovascular Services [facility] [address] [place] [address] Cardiovascular Laboratory Report PROCEDURES PERFORMED: 1. Bilateral selective coronary angiography. 2. Left heart catheterization. FINAL IMPRESSIONS: 1. Severe 3 vessel [place] coronary artery disease. 2. Normal LVEDP. RECOMMENDATIONS: [...] P/Alissa Galindo MD Date Trans: 12/18/2021 11:28 P/jackie [id number] Normal [facility] Vital Signs Date Time Vital Sign Value Performing Clinician Facility 07-06-2024 15:24-0500 Body height 172.7 cm Justus Braxton MD Work Phone: [facility] 07-06-2024 15:24-0500 Body mass index (BMI) [Ratio] 37.07 kg/m2 Justus Braxton MD Work Phone: [facility] 07-06-2024 15:24-0500 Body weight 110.6 kg Justus Braxton MD Work Phone: [facility] 07-06-2024 15:24-0500 Diastolic blood pressure 66 mm[Hg] Justus Braxton MD Work Phone: [facility] 07-06-2024 15:24-0500 Heart rate 56 /min Justus Braxton MD Work Phone: [facility] 07-06-2024 15:24-0500 Systolic blood pressure 163 mm[Hg] Justus Braxton MD Work Phone: [facility] 05-28-2024 09:59-0400 Blood Pressure Location Olivia Galea [facility] 05-28-2024 09:59-0400 Diastolic blood pressure 80 mm[Hg] Olivia Galea [facility] 05-28-2024 09:59-0400 Heart rate 70 /min Olivia Galea [facility] 05-28-2024 09:59-0400 Systolic blood pressure 160 mm[Hg] Olivia Galea [facility] 05-01-2024 10:20-0400 Diastolic blood pressure 79 mm[Hg] Alissa Mooney [facility] 05-01-2024 10:20-0400 Heart rate 76 /min Alissa Mooney [facility] 05-01-2024 10:20-0400 Mean blood pressure 100 mm[Hg] Mohamad Mouchli [facility] 05-01-2024 10:20-0400 Respiratory rate 15 /min Mohamad Mouchli [facility] 05-01-2024 10:20-0400 SaO2% (BldA) [Mass fraction] 96 % Mohamad Mouchli [facility] 05-01-2024 10:20-0400 Systolic blood pressure 142 mm[Hg] Mohamad Mouchli [facility] 05-01-2024 10:11-0400 Diastolic blood pressure 80 mm[Hg] Mohamad Mouchli [facility] 05-01-2024 10:11-0400 Heart rate 85 /min Mohamad Mouchli [facility] 05-01-2024 10:11-0400 Respiratory rate 14 /min Mohamad Mouchli [facility] 05-01-2024 10:11-0400 SaO2% (BldA) [Mass fraction] 97 % Mohamad Mouchli [facility] 05-01-2024 10:11-0400 Systolic blood pressure 132 mm[Hg] Mohamad Mouchli [facility] 05-01-2024 10:10-0400 Diastolic blood pressure 80 mm[Hg] Mohamad Mouchli [facility] 05-01-2024 10:10-0400 Heart rate 86 /min Mohamad Mouchli [facility] 05-01-2024 10:10-0400 Mean blood pressure 97 mm[Hg] Mohamad Mouchli [facility] 05-01-2024 10:10-0400 Respiratory rate 14 /min Mohamad Mouchli [facility] 05-01-2024 10:10-0400 SaO2% (BldA) [Mass fraction] 97 % Mohamad Mouchli [facility] 05-01-2024 10:10-0400 Systolic blood pressure 130 mm[Hg] Mohamad Mouchli [facility] 05-01-2024 10:05-0400 Blood Pressure Location Mohamad Mouchli [facility] 05-01-2024 10:05-0400 Body temperature 97.88 [degF] Mohamad Mouchli [facility] 05-01-2024 10:05-0400 Mean blood pressure 93 mm[Hg] Mohamad Mouchli [facility] 05-01-2024 08:34-0400 Blood Pressure Location Mohamad Mouchli [facility] 05-01-2024 08:34-0400 Body temperature 97.88 [degF] Mohamad Mouchli [facility] 04-16-2024 10:19-0400 Blood Pressure Location Mohamad Mouchli [facility] 04-16-2024 10:19-0400 Diastolic blood pressure 89 mm[Hg] Mohamad Mouchli [facility] 04-16-2024 10:19-0400 Heart rate 51 /min Mohamad Mouchli [facility] 04-16-2024 10:19-0400 Systolic blood pressure 162 mm[Hg] Mohamad Mouchli [facility] 03-24-2024 11:05-0400 Body height 172.72 cm [facility] 03-24-2024 11:05-0400 Body mass index (BMI) [Ratio] 37.2 kg/m2 [facility] 03-24-2024 11:05-0400 Body weight 111.13 kg [facility] 03-24-2024 11:05-0400 Diastolic blood pressure 83 mm[Hg] [facility] 03-24-2024 11:05-0400 Heart rate 54 /min [facility] 03-24-2024 11:05-0400 Systolic blood pressure 154 mm[Hg] [facility] 08-09-2022 10:45-0500 Body height 173.99 cm Jacob Mckeon Other [facility] Other 08-09-2022 10:45-0500 Body mass index (BMI) [Ratio] 35.81 kg/m2 Jacob Mckeon Other [facility] Other 08-09-2022 10:45-0500 Body weight 108.41 kg Jacob Mckeon Other [facility] Other 08-09-2022 10:45-0500 Diastolic blood pressure 72 mm[Hg] Jacob Mckeon Other [facility] Other 08-09-2022 10:45-0500 SaO2% (BldA) [Mass fraction] 97 % Jacob Mckeon Other [facility] Other 08-09-2022 10:45-0500 Systolic blood pressure 132 mm[Hg] Jacob Mckeon Other [facility] Other 07-25-2022 13:00-0500 Body height 175.26 cm Mary Ontiveros Other [facility] Other 07-25-2022 13:00-0500 Body mass index (BMI) [Ratio] 35.73 kg/m2 Mary Ontiveros Other [facility] Other 07-25-2022 13:00-0500 Body temperature 97.8 [degF] Mary Ontiveros Other [facility] Other 07-25-2022 13:00-0500 Body weight 109.77 kg Mary Ontiveros Other [facility] Other 07-25-2022 13:00-0500 Respiratory rate 18 /min Mary Ontiveros Other [facility] Other 07-25-2022 13:00-0500 SaO2% (BldA) [Mass fraction] 96 % Mary Ontiveros Other [facility] Other 02-28-2022 12:30-0400 Body height 175.26 cm Cass Lakhanimond Other [facility] Other 02-28-2022 12:30-0400 Body mass index (BMI) [Ratio] 34.26 kg/m2 Cass Marquita Other [facility] Other 02-28-2022 12:30-0400 Body temperature 100.6 [degF] Cass Marquita Other [facility] Other 02-28-2022 12:30-0400 Body weight 105.24 kg Cass Marquita Other [facility] Other 02-28-2022 12:30-0400 Respiratory rate 18 /min Cass Marquita Other [facility] Other 02-28-2022 12:30-0400 SaO2% (BldA) [Mass fraction] 97 % Cass Juárez Other [facility] Other Encounters Encounter Date Encounter Type Care Provider Facility Start: 12-10-2024 ambulatory Shade WOOD [facility] ty:CD:[id number] Start: 11-24-2024 End: 11-24-2024 Bamboo flowsheet JrJonathan Snyder DO Work Phone: [facility] Start: 11-24-2024 End: 11-24-2024 Bamboo flowsheet Jr. Dinora Velazquez Stepsmith DO Work Phone: [facility] Start: 11-24-2024 End: 11-24-2024 Office outpatient visit 15 minutes Jr. Dinora Snyder DO Work Phone: [facility] Comment on above: Primary osteoarthrit is of left knee (Primary Dx); Acute pain of left knee Start: 11-24-2024 End: 11-24-2024 ambulatory DINORA TORRES Not Available Start: 11-20-2024 End: 11-20-2024 ambulatory Shade WOOD Facility:[facility] Start: 11-17-2024 End: 11-17-2024 Telephone encounter Kehinde Gonzalez SENIOR INFORMATICA ETL DEVELOPER Work Phone: [facility] Comment on above: Injection Start: 10-26-2024 End: 10-26-2024 Bamboo flowsheet Kehinde Gonzalez SENIOR INFORMATICA ETL DEVELOPER Work Phone: [facility] Start: 10-26-2024 End: 10-26-2024 Bamboo flowsheet Kehinde Gonzalez SENIOR INFORMATICA ETL DEVELOPER Work Phone: [facility] Start: 10-26-2024 End: 10-26-2024 ambulatory KEHINDE GONZALEZ Not Available Start: 10-26-2024 End: 10-26-2024 Office outpatient visit 25 minutes Kehinde Gonzalez SENIOR INFORMATICA ETL DEVELOPER Work Phone: [facility] Comment on above: Primary osteoarthrit is of left knee (Primary Dx); Acute pain of left knee Start: 10-08-2024 End: 10-08-2024 [facility] Start: 07-06-2024 End: 07-06-2024 ambulatory JACOB MCKEON Facility:[facility] Start: 07-06-2024 End: 07-06-2024 Office outpatient new 45 minutes Justus Braxton MD Work Phone: Gastroenterology Comment on above: Subepithelial lesion of esophagus (Primary Dx); Hiatal hernia; Gastroesophageal reflux disease, unspecified whether esophagitis present; Diverticulosis Start: 05-28-2024 End: 05-28-2024 ambulatory JACOB MCKEON Facility:[facility] Start: 05-28-2024 End: 05-28-2024 Patient encounter procedure Olivia Woodard [facility] Start: 05-27-2024 End: 05-29-2024 Telephone encounter Justus Braxton MD Work Phone: Gastroenterology Comment on above: Appointment Start: 05-21-2024 End: 05-21-2024 ambulatory Alissa Mooney Facility:[facility] Start: 05-21-2024 End: 05-21-2024 Patient encounter procedure Alissa Mooney [facility] Start: 05-01-2024 End: 05-01-2024 ambulatory Alissa Mooney Facility:[facility] Start: 05-01-2024 End: 05-01-2024 Patient encounter procedure Alissa Mooney [facility] Start: 04-27-2024 End: 04-27-2024 ambulatory ALISSA GALINDO [facility] Start: 04-24-2024 ambulatory Alissa Mooney Facilit y:[facility] Start: 04-16-2024 End: 04-16-2024 ambulatory Alissa Mooney Facility:[facility] Start: 04-16-2024 End: 04-16-2024 Patient encounter procedure Alissa Mooney [facility] Start: 03-24-2024 End: 03-24-2024 ambulatory [facility] Work Phone: Start: 03-24-2024 End: 03-24-2024 Patient encounter procedure [facility] Phys[facility] Work Phone: Start: 08-19-2023 End: 08-19-2023 ambulatory Jacob Mckeon Other [facility] Other Start: 08-19-2023 Telephone encounter Jacob Mckeon [facility] Start: 12-25-2022 End: 12-26-2022 ambulatory MARCELINO STERN Facility:[facility] Start: 11-22-2022 End: 11-23-[address] JACOB MCKEON Facility:[facility] Start: 11-20-2022 End: 11-21-2022 ambulatory MARCELINO STERN Facility:[facility] Start: 11-12-2022 End: 11-13-2022 ambulatory MARCELINO STERN Facility:[facility] Start: 10-09-2022 End: 10-10-2022 ambulatory CINDY PIZARRO Facility:[facility] Start: 08-24-2022 End: 08-25-[address] ISABEL LISTED REQUEST Facility:[facility] Start: 08-09-2022 End: 08-09-2022 ambulatory Jacob Mckeon Other [facility] Other Start: 08-09-2022 Office outpatient vi sit 15 minutes Jacob Mckeon [facility] Start: 07-31-2022 End: 08-15-2022 ambulatory ALISSA BELLHOBETINAANI Facility:[facility] Start: 07-27-2022 End: 07-27-2022 ambulatory Jacob Mckeon Other [facility] Other Start: 07-27-2022 Telephone encounter Jacob Mckeon [facility] Start: 07-25-2022 End: 07-25-2022 ambulatory Mary Ontiveros Other [facility] Other Start: 07-25-2022 Office outpatient vi sit 25 minutes Mary Ontiveros [facility] Start: 06-25-2022 End: 06-26-2022 ambulatory CINDY PIZARRO Facility:[facility] Start: 06-01-2022 End: 06-02-[address] TRINIDAD CHRISTINA Facility:[facility] Start: 05-02-2022 End: 05-03-2022 ambulatory CINDY PIZARRO Facility:[facility] Start: 03-06-2022 Adult health examination Jacob Mckeon Other [facility] Other Start: 02-28-2022 End: 02-28-2022 ambulatory Cass Juárez Other [facility] Other Start: 02-28-2022 Office outpatient ne w 20 minutes Cass Juárez [facility] Start: 02-26-2022 End: 07-31-2022 ambulatory CAROLTAMIKA GALINDO Facility: Start: 01-01-2022 End: 01-07-2022 Evaluation and management of inpatient JACOB LINDA Facility:[facility] Start: 01-01-2022 End: 01-02-2022 Evaluation and management of inpatient JACOB MCKEON Facility:[facility] Start: 12-30-2021 End: 01-16-2022 ambulatory JACOB MCKEON Facility:[facility] Start: 12-18-2021 End: 12-19-2021 ambulatory JACOB MCKEON Facility:[facility] Procedures Date Procedure Procedure Detail Performing Clinician Start: 10-26-2024 Arthrocentesis aspir&/inj major jt/bursa w/o Kehinde Gonzalez SENIOR INFORMATICA ETL DEVELOPER Work Phone: Start: 10-26-2024 Radiologic examination knee 1/2 views Kehinde Gonzalez SENIOR INFORMATICA ETL DEVELOPER Work Phone: Start: 05-01-2024 Colonoscopy Kaykayteddy Mooney Start: 05-01-2024 Esophagogastroduodenoscopy Kaykayteddy burrows Start: 05-23-2022 History of coronary artery bypass grafting H/O four vessel coronary artery bypass graft Kehinde Gonzalez NP Work Phone: Start: 01-02-2022 Antibody screen JACOB MCKEON Comment on above: Performed By: #### [id number] ####[facility] [place] [place], [place] [id number] [place] [address] Start: 05-29-2016 General examination of patient Jacob walls Other Start: 06-08-2015 Screening for malignant neoplasm of prostate Jacob Mckeon Other Colonoscopy Caroltamika Mooney Open heart surgery Olivia dahl Plan of Treatment Date Care Activity Detail Author Start: 2029 RSV Vaccine (1 - 1-dose 75+ series) RSV Vaccine (1 - 1-dose 75+ series) [facility] Start: 05-25-2025 End: 05-25-2025 Patient encounter procedure 05/25/2025 8:00 AM EDT Office Visit [facility] [address] [place] [address] Jr. Dinora Snyder C, DO [address] [address] [facility] Start: 11-24-2024 End: 11-24-2024 Patient encounter procedure [facility] Comment on above: Arrived Start: 07-06-2024 End: 07-06-2024 Patient encounter procedure 07/06/2024 3:30 PM EST Office Visit Gastroenterology [address] [place] [address] [place] [address] [place] [address] Discuss EGD/EUS radial and linear with FNB, per encounter Gastroenterology Comment on above: Discuss EGD/EUS radial and linear with F NB, per encounter Start: 03-29-2024 Covid-19 Vaccine ( season) Covid-19 Vaccine ( season) [facility] Start: 03-29-2024 Influenza vaccination Influenza Vaccine (#1) [facility] Start: 07-29-2023 Advance Directive Discussion Advance Directive Discussion [facility] Start: 2019 Pneumococcal Vaccine: 65+ (1 of 1 - PCV) Pneumococcal Vaccine: 65+ (1 of 1 - PCV) [facility] Start: 2004 Shingrix Vaccine (1 of 2) Shingrix Vaccine (1 of 2) [facility] Start: 1999 Diabetes Screening Diabetes Screening [facility] Start: 1999 Screening for malignant neoplasm of colon [facility] Start: 1989 Lipid panel Lipid Screening [facility] Start: 1973 Urine microalbumin profile DTaP,Tdap,Td Vaccine (1 - Tdap) [facility] Start: 1972 Annual PCP Team Chronic Disease Visit Annual PCP Team Chronic Disease Visit [facility] Start: 1972 Anxiety Screening Anxiety Screening [facility] Start: 1972 Depression Screening Depression Screening [facility] Start: 1972 Hepatitis B surface antibody level LDL Cholesterol [facility] Start: 1972 Hepatitis C screening Hepatitis C Screening [facility] Start: 1954 Abdominal aortic aneurysm screening Abdominal Aortic Aneurysm Screening [facility] End: 07-06-2025 EGD - THERAPEUTIC, EUS, OR TUBE INTERVENTIONS EGD - THERAPEUTIC, EUS, OR TUBE INTERVENTIONS Endoscopy Routine Subepithelial lesion of esophagus 1 Occurrences starting 07/06/2024 until 07/06/2025 [facility] Work Phone: Comment on above: 1 Occurrences starting 07/06/2024 until 07/06/2025 Immunizations Immunization Date Immunization Notes Care Provider Carlos zhang 06-05-2022 influenza (HD-IIV4) vaccine, age 65+ yr, high dose, quadrivalent, PF (FLUZONE HIGH-DOSE) Justus Braxton MD Work Phone: [facility] 06-05-2022 influenza virus vaccine, split virus (incl. purified surface antigen) Jacob Mckeon Other [facility] Other 06-05-2022 influenza virus vaccine, unspecified formulation [facility] 06-05-2022 Prevnar 20 Jacob Mckeon Other [facility] 05-02-2018 influenza virus vaccine, split virus (incl. purified surface antigen) Jacob Mckeon Other [facility] Other 05-02-2018 influenza virus vaccine, unspecified formulation [facility] 05-02-2018 influenza, injectabl e, quadrivalent, preservative free Justus Braxton MD Work Phone: [facility] 05-15-2017 influenza virus vaccine, unspecified formulation Mohamad Modemi [facility] 05-15-2017 influenza, seasonal, injectable, preservative free Justus Braxton MD Work Phone: [facility] 05-15-2017 tetanus and diphther ia toxoids, adsorbed, preservative free, for adult use (5 Lf of tetanus toxoid and 2 Lf of diphtheria toxoid) Jacob Mckeon Other [facility] 05-30-2016 zoster vaccine, live Jacob Mckeon Other [facility] 05-04-2016 influenza virus vaccine, unspecified formulation Mohamad Modemi [facility] 05-04-2016 influenza, seasonal, injectable, preservative free Justus Braxton MD Work Phone: [facility] 05-04-2016 tetanus and diphther ia toxoids, adsorbed, preservative free, for adult use (5 Lf of tetanus toxoid and 2 Lf of diphtheria toxoid) Jacob Mckeon Other [address] [place] [address] Payers Date Payer Category Payer Private Health Insurance [employer] [id number] 2021 Unknown MMO MMO MEDICARE SUPPLEMENT [id number] 2021 [address] [place] [address] Indemnity [id number] 2019 Medicare [id number] 1959 Medicare [id number] 1959 Self-pay 1959 Unknown [id number] 1959 Unknown [id number] 1954 Unknown [id number] 2.16.840.1.647513.3.579.2.6 47 1954 Unknown [id number] 2.16.840.1.151215.3.579.2.6 47 1954 Unknown [id number] 2.16.840.1.544312.3.579.2.6 47 1954 Unknown [id number] 2.16.840.1.726186.3.579.2.6 47 1954 Unknown [id number] 2.16.840.1.835539.3.579.2.5 93 1954 Unknown [id number] 2.16.840.1.671372.3.579.2.5 93 1954 Unknown [id number] 2.16.840.1.432699.3.579.2.5 1954 Unknown [id number] 2.16.840.1.346164.3.579.2.5 1954 Unknown [id number] 2.16.840.1.564664.3.579.2.5 1954 Unknown [id number] 2.16.840.1.898620.3.579.2.5 1954 Unknown [id number] 2.16.840.1.230189.3.579.2.5 1954 Unknown [id number] 2.16.840.1.692861.3.579.2.5 1954 Unknown [id number] 2.16.840.1.675874.3.579.2.5 1954 Unknown [id number] 2.16.840.1.492946.3.579.2.5 1954 Unknown [id number] 2.16.840.1.040747.3.579.2.5 1954 Unknown [id number] 2.16.840.1.043336.3.579.2.7 1954 Unknown [id number] 2.16.840.1.817282.3.579.2.7 1954 Unknown [id number] 2.16.840.1.832975.3.579.2.7 1954 Unknown [id number] 2.16.840.1.610812.3.579.2.7 1954 Unknown [id number] 2.16.840.1.673190.3.579.2.7 1954 Unknown [id number] 2.16.840.1.275489.3.579.2.7 1954 Unknown [id number] 2.16.840.1.963031.3.579.2.1 259 1954 Unknown [id number] 2.16.840.1.962577.3.579.2.1 259 1954 Unknown [id number] 2.16.840.1.755716.3.579.2.1 259 Medicare [id number] 2.16.840.1.920157.19 Unknown [id number] 2.16.840.1.904056.3.579.2.5 93 Social History Date Type Detail Facility Start: 07-06-2024 End: 10-26-2024 [facility] Assigned At [facility] Start: 1955 Sex Assigned At Male Brij[facility] Start: 04-16-2024 End: 05-28-2024 Tobacco smoking status Never smoked tobacco (finding) [facility] Tobacco smoking status Never [facility] Start: 06-12-2023 End: 07-06-2024 Tobacco smoking status Ex-smoker (finding) [facility] consumption unknown [facility] Start: 1955 Sex assigned at Not on file C [facility] End: 07-29-1989 History of tobacco use Current smoker [facility] End: 07-29-1989 History of tobacco use Cigarette Smoker [facility] Start: 06-12-2023 End: 07-06-2024 Tobacco use and exposure Smokeless tobacco non-user [facility] Start: 07-06-2024 End: 10-26-2024 Alcoholic beverage intake Current drinker of alcohol (finding) [facility] Start: 07-06-2024 End: 10-26-2024 History of Social function [facility] Start: 07-06-2024 Alcohol Comment Socially [facility] Start: 02-18-2023 Tobacco Comment Last smoked: 1-5 yea rs [facility] Start: 02-18-2023 Alcohol Comment Coffee 2-3 cups per day [facility] Healthcare Medical Equipment Procedure Code Equipment Code Equipment Origin al Text Equipment Identifier Dates Lancets - Start: 08-19-2023 Functional Status Date Assessment Result Facility 05-28-2024 Functional Status N/A [facility] 05-01-2024 Functional Status N/A [facility] 04-16-2024 Functional Status N/A [facility] Clinical Notes 01-24-2022 to 11-24-2024 Jr. Dinora Snyder, DO - 11/24/2024 8:00 AM EDTTelephone Encounter - Charmaine Burns - 11/17/2024 1:31 PM EDTTelephone Encounter - Charmaine Burns - 11/17/2024 1:31 PM EDTPatient Instructions Note Date & Type Note Facility 11-24-2024 History of Present illness Narrative Images from the original note were not included. HISTORY OF PRESENT ILLNESS: EST PT Oswald Ochoa is an 69 y.o. @ male. (KATHY W/KEHINDE) RECHECK LT KNEE PAIN - S/P CORTISONE INJ 10/26/24- 3 DAYS RELIEF THEN PAIN RETURNED. XRAY EPIC 10/26/24 XRAY EXA 11/04/17 NO MRI DEPO INJECTION 11/04/17, 10/26/24 NO PT NO PAIN MANAGEMENT LAST INJECTION GAVE GOOD RELIEF FOR 3 DAYS BUT PAIN HAS PARTIALLY RETURNED. PAIN IS INTERMITTENT. WILL BE MEDIAL KNEE. CAN BE SHARP SHOOTING. ADMITS STIFFNESS. +TYL ARTHRITIS AND TOPICAL CREAM. +POPPING, GRINDING. OCCAS GIVING OUT. SOMETIMES WAKES AT HS. 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 + DM, ON PLAVIX ALLERGIES: No Known Allergies HOME MEDICATIONS: Current Outpatient Medications Medication Instructions aspirin 81 MG EC tablet 1 tablet, Oral, Daily RT atorvastatin (Lipitor) 80 MG tablet 1 tablet, Oral, Nightly clopidogrel (Plavix) 75 MG tablet 1 tablet, Oral, Daily RT glipiZIDE (GLUCOTROL) 5 mg, Oral, Daily latanoprost (Xalatan) 0.005 % ophthalmic solution Every 24 hours lisinopril 40 MG tablet metoprolol succinate XL (Toprol-XL) 100 MG 24 hr tablet TAKE 1 TABLET BY MOUTH IN THE MORNING *DO NOT CRUSH OR CHEW* Multiple Vitamin (multivitamin) capsule Orally omeprazole (PRILOSEC) 40 mg, Oral, Daily polyethylene glycol, PEG, 3350 (MiraLax) 17 g packet Every 24 hours tadalafil (Cialis) 5 MG tablet Every 24 hours PHYSICAL EXAM: Knee Musculoskeletal Exam Gait Antalgic: left Inspection Leg length disparity: no discrepancy Left Erythema: none Effusion: mild Edema: none Ecchymosis: none Deformity: none Alignment: varus Palpation Left Left knee palpation is unremarkable. Increased warmth: none Masses: none Crepitus: patellofemoral and medial Tenderness: present Medial joint line: moderate Patella: mild Range of Motion Left Left knee range of motion is normal and full. Active extension: 5 Passive extension: 5 Active flexion: 115 Passive flexion: 120 Strength Left Left knee strength is normal. Extension: 5/5. Extension is affected by pain. Flexion: 5/5. Flexion is affected by pain. Instability Left Instability signs: none - stable Anterior drawer: normal Neurovascular Left Left knee neurovascular exam is normal. Pulses - PT: normal Posterior tibial: 2+ Capillary refill: warm and well-perfused Special Signs Left Left knee special signs are normal. General Constitutional: appears stated age Labored breathing: no Psychiatric: normal mood and affect Neurological: alert Skin: intact Lymphadenopathy: none Vitals: There is no height or weight on file to calculate BMI. Tobacco Use: Medium Risk (10/26/2024) Patient History Smoking Tobacco Use: Former Smokeless Tobacco Use: Never Passive Exposure: Not on file Alcohol Use: Not on file IMAGING: Procedures No orders of the defined types were placed in this encounter. ASSESSMENT: No diagnosis found. PLAN: Patient will need Plavix protocol. Patient feels he is functioning too well with his varus knee to discuss total knee arthroplasty or Visco supplementation. We have discussed his restrictions and home exercise program. We'll see him back in 6 months for radiographic evaluation. Questions answered in laymen terms at the bedside. The diagnosis, home exercise plan and any ongoing restrictions/ recommendations reviewed. If unable to be reached in office, I recommend evaluation at nearest Emergency Room if any symptoms worsened or new symptoms develop for requiring urgent evaluation. documented in this encounter [facility] 11-20-2024 Note Patient Education Nephrology ESWL for Kidney Stones Extracorporeal shock wave lithotripsy (ESWL) is a treatment that can help break up kidney stones that are too large to pass on their own. This is a nonsurgical procedure that breaks up a kidney stone with shock waves. These shock waves pass through your body and focus on the kidney stone. They cause the kidney stone to break into smaller pieces (fragments) while it is still in the urinary tract. The fragments of stone can pass more easily out of your body in the urine. Tell a health care provider about: ??? Any allergies you have. ??? All medicines you are taking, including vitamins, herbs, eye drops, creams, and ogkr-dcy-juvzcxf medicines. ??? Any problems you or family members have had with anesthetic medicines. ??? Any bleeding problems you have. ??? Any surgeries you have had. ??? Any medical conditions you have. ??? Whether you are or may be . What are the risks? Your health care provider will talk with you about risks. These may include: ??? Infection. ??? Bleeding from the kidney. ??? Bruising of the kidney or skin. ??? Scarring of the kidney. This can lead to: ? Increased blood pressure. ? Poor kidney function. ? Return (recurrence) of kidney stones. ??? Damage to other structures or organs. This may include the liver, colon, spleen, or pancreas. ??? Blockage (obstruction) of the tube that carries urine from the kidney to the bladder (ureter). ??? Failure of the kidney stone to break into fragments. What happens before the procedure? When to stop eating and drinking Follow instructions from your health care provider about what you may eat and drink. These may include: ??? 8 hours before your procedure ? Stop eating most foods. Do not eat meat, fried foods, or fatty foods. ? Eat only light foods, such as toast or crackers. ? All liquids are okay except energy drinks and alcohol. ??? 6 hours before your procedure ? Stop eating. ? Drink only clear liquids, such as water, clear fruit juice, black coffee, plain tea, and sports drinks. ? Do not drink energy drinks or alcohol. ??? 2 hours before your procedure ? Stop drinking all liquids. ? You may be allowed to take medicines with small sips of water. If you do not follow your health care provider's instructions, your procedure may be delayed or canceled. Medicines Ask your health care provider about: ??? Changing or stopping your regular medicines. These include any diabetes medicines or blood thinners you take. ??? Taking medicines such as aspirin and ibuprofen. These medicines can thin your blood. Do not take them unless your health care provider tells you to. ??? Taking kimm-lix-gblffnl medicines, vitamins, herbs, and supplements. Tests You may have tests, such as: ??? Blood tests. ??? Urine tests. ??? Imaging tests. This may include a CT scan. Surgery safety Ask your health care provider: ??? How your surgery site will be marked. ??? What steps will be taken to help prevent infection. These steps may include: ? Washing skin with a soap that kills germs. ? Receiving antibiotics. General instructions ??? If you will be going home right after the procedure, plan to have a responsible adult: ? Take you home from the hospital or clinic. You will not be allowed to drive. ? Care for you for the time you are told. What happens during the procedure? An IV will be inserted into one of your veins. ??? You may be given: ? A sedative. This helps you relax. ? Anesthesia. This will: ? Numb certain areas of your body. ? Make you fall asleep for surgery. ??? A water-filled cushion may be placed behind your kidney or on your abdomen. In some cases, you may be placed in a tub of lukewarm water. ??? Your body will be positioned in a way that makes it easier to target the kidney stone. ??? An X-ray or ultrasound exam will be done to locate your stone. ??? Shock waves will be aimed at the stone. If you are awake, you may feel a tapping sensation as the shock waves pass through your body. ??? A small mesh tube (stent) may be placed in your ureter. This will help keep urine flowing from the kidney if the fragments of the stone have been blocking the ureter. The stent will be removed at a later time by your health care provider. The procedure may vary among health care providers and hospitals. What happens after the procedure? Your blood pressure, heart rate, breathing rate, and blood oxygen level will be monitored until you leave the hospital or clinic. ??? You may have an X-ray after the procedure to see how many of the kidney stones were broken up. This will also show how much of the stone has passed. If there are still large fragments after treatment, you may need to have a second procedure at a later time. This information is not intended to replace advice given to you b (more content not included)... [facility] 11-17-2024 Telephone encounter Note Patient's called and left . She stated that the cortisone injection that he had 1 month ago has not helped at all. Please advise [phone]. [facility] 11-17-2024 Miscellaneous Notes Patient's called and left . She stated that the cortisone injection that he had 1 month ago has not helped at all. Please advise [phone]. documented in this encounter [facility] 10-26-2024 History of Present illness Narrative Associated Order(s): L Inj/Asp: L knee Post-Procedure Diagnose(s): Primary osteoarthritis of left knee Images from the original note were not included. HISTORY OF PRESENT ILLNESS: KATHY Ochoa is an 69 y.o. @ male. (KATHY W/SHARATH) LT KNEE PAIN ~1 MTH (08/2024), HAS BEEN PAINTING AND GOING UP AND DOWN A LADDER. XRAY TODAY EPIC 10/26/24 XRAY EXA 11/04/17 DEPO INJECTION 11/04/17 HAD GREAT RELIEF FROM INJECTION UNTIL RECENT FLARE UP. PAIN IS INTERMITTENT. WILL BE MEDIAL KNEE. CAN BE SHARP SHOOTING. +TYL ARTHRITIS AND TOPICAL CREAM. +POPPING, GRINDING. OCCAS GIVING OUT. SOMETIMES WAKES AT HS. ALLERGIES: No Known Allergies HOME MEDICATIONS: Current Outpatient Medications Medication Instructions aspirin 81 MG EC tablet 1 tablet, Oral, Daily RT atorvastatin (Lipitor) 80 MG tablet 1 tablet, Oral, Nightly clopidogrel (Plavix) 75 MG tablet 1 tablet, Oral, Daily RT glipiZIDE (GLUCOTROL) 5 mg, Oral, Daily latanoprost (Xalatan) 0.005 % ophthalmic solution Every 24 hours lisinopril 40 MG tablet metoprolol succinate XL (Toprol-XL) 100 MG 24 hr tablet TAKE 1 TABLET BY MOUTH IN THE MORNING *DO NOT CRUSH OR CHEW* Multiple Vitamin (multivitamin) capsule Orally omeprazole (PRILOSEC) 40 mg, Oral, Daily polyethylene glycol, PEG, 3350 (MiraLax) 17 g packet Every 24 hours tadalafil (Cialis) 5 MG tablet Every 24 hours PHYSICAL EXAM: Left Knee Exam Tenderness The patient is experiencing tenderness in the medial joint line. Range of Motion Extension: 0 Flexion: 110 Tests Varus: negative Valgus: negative Other Erythema: absent Scars: absent Sensation: normal Pulse: present Swelling: mild Comments: Varus alignment Vitals: There is no height or weight on file to calculate BMI. Tobacco Use: Medium Risk (10/26/2024) Patient History Smoking Tobacco Use: Former Smokeless Tobacco Use: Never Passive Exposure: Not on file Alcohol Use: Not on file IMAGING: XR knee 1 or 2 views left Imaging Result: 10/26/2024: AP and lateral views of left knee showed severe varus deformity with near xbdb-ij-oqll articulation to the medial joint line, flattening of the articular surfaces to the medial joint line lateral joint line and patellofemoral joint. Subchondral sclerosis was noted at the medial joint line surfaces as well as the lateral joint line and patellofemoral joint. Marginal osteophytic formation was noted tricompartmentally. There is no evidence of fracture or dislocation. 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 Consent was given by the patient. Orders Placed This Encounter Procedures L Inj/Asp: L knee This order was created via procedure documentation XR knee 1 or 2 views left Order Specific Question: Reason for exam: Answer: pain ASSESSMENT: ICD-10-CM 1. Primary osteoarthritis of left knee M17.12 L Inj/Asp: L knee 2. Acute pain of left knee M25.562 XR knee 1 or 2 views left PLAN: I reviewed xray findings with the patient and discussed treatment options, answered questions. I discussed with the patient the option of an injection as he had great relief with previous injection. I advised the patient of risks associated with an injection including a reaction to medication, infection, failure to improve and possible worsening. The patient demonstrated understanding. Patient requesting injection. Skin Cleansed with alcohol swab. Utilizing aseptic technique patient given 40mg Depomedrol was injected. Patient tolerated this well. Neurovasc intact s/p injection. Post injection care instructions discussed. He will call if symptoms fail to improve. I educated patient we can do injection every 3-4 months as needed. Questions answered in laymen terms at the bedside. The diagnosis, home exercise plan and any ongoing restrictions/ recommendations reviewed. If unable to be reached in office, I recommend evaluation at nearest Emergency Room if any symptoms worsened or new symptoms develop for requiring urgent evaluation. Kehinde Gonzalez INBOUND CUSTOMER SERVICE AGENT-LASER/ELECTRO OPTICS TECHNICIAN documented in this encounter [facility] 10-08-2024 Note Patient here for 6 m [facility] follow up. Patient has a history of CAD, Hyperlipidemia, CABG, 01/17, Diabetes and HTN. SOB with heavy lifting and walking long distances. Chest pain Patient states feels like someone is sticking a pin in me. Joint pain. Patient states he recently had kidney ultra sound, bladder X-ray for kidney stones and a cyst on right kidney. Review of Systems Cardiovascular: Positive for chest pain. Musculoskeletal: Positive for joint pain. [facility] 10-08-2024 Note Cardiovascular Medic [facility] SUBJECTIVE Chief Complaint Patient presents with Coronary Artery Disease Oswald Ochoa is a 69 y.o. male here for follow-up. He has know HTN, CAD s/p CABG 01/03/2022, DM type II, HLD, BPH, former smoker. Hx hiatal hernia. HPI 10/08/2024 Patient here for 6 month follow up. Patient has a history of CAD, Hyperlipidemia, CABG, 01/17, Diabetes and HTN. SOB with heavy lifting and walking long distances. Chest pain Patient states feels like someone is sticking a pin in me. Joint pain. Patient states he recently had kidney ultra sound, bladder X-ray for kidney stones and a cyst on right kidney. Chest pain can occur after he exerts himself or at rest. Doesn't occur in the same location but is around his bypass incision. Feels like pins. Happening for the past month or so. Rest helps. Hx of hiatal hernia. He also notes some sensitive areas around his bypass scar. His WHITNEY is stable. He has had frequent headaches recently. BP has been running 140s/70s at home. Unsure what his BP is when he has headaches. He has leg swelling if he is on his feet for long periods of time. Denies palpitations. 11/12/2022 He was doing well with his cardiac rehab until recently. He has felt off for the past two months since he had a flare up with diverticulosis. Within the last week or so he's noticed an increase his SOB with exertion. No chest pain but he will get a cramp in between his shoulder blades. Accompanied sx's of fatigue, dizziness/LH, diaphoresis. Resting improves sx's. He had similar sx's prior to his abnormal stress/cardiac cath last year. Hx hiatial hernia - he denies previously having sx's with this. He has night sweats, ongoing since before bypass surgery. BP at home running - 120s/70s Patient Active Problem List Diagnosis Benign prostatic hyperplasia Coronary arteriosclerosis Dyspnea on exertion Erectile dysfunction Hyperlipidemia Hypertensive disorder Obesity Type 2 diabetes mellitus (CMS/HCC) H/O four vessel coronary artery bypass graft Diverticulitis of colon Pure hypercholesterolemia Diverticulosis GERD (gastroesophageal reflux disease) Hiatal hernia Kidney stones Renal cyst Past Medical History: Diagnosis Date Coronary artery disease Diabetes mellitus (CMS/HCC) Hyperlipidemia Hypertension No family history on file. Social History Tobacco Use Smoking status: Former Types: Cigarettes Substance Use Topics Alcohol use: Yes Comment: occasional No Known Allergies ROS Cardiovascular: Positive for dyspnea on exertion and chest pain. Musculoskeletal: Positive for back pain. OBJECTIVE Visit Vitals BP 146/74 (BP Location: Right arm, Patient Position: Sitting) Pulse 64 Ht 1.753 m (5' 9 ) Wt 110 kg (242 lb) SpO2 95% BMI 35.74 kg/m??? Smoking Status Former BSA 2.31 m??? Medications: Current Outpatient Medications: Accu-Chek Guide test strips strip, USE TO TEST BLOOD SUGAR EVERY DAY, Disp: , Rfl: Accu-Chek Softclix Lancets [facility], USE 1 LANCET DAILY TO CHECK BLOOD SUGAR*E11.65*, Disp: , Rfl: ascorbic acid (Vitamin C) 500 mg tablet, Take 500 mg by mouth in the morning., Disp: , Rfl: aspirin 81 mg EC tablet, TAKE 1 [...] mouth in the morning., Disp: , Rfl: latanoprost (Xalatan) 0.005 % ophthalmic solution, Administer 1 drop into both eyes at bedtime., Disp: , Rfl: lisinopril 40 mg tablet, TAKE 1 TABLET BY MOUTH EVERY DAY IN THE MORNING, Disp: 90 tablet, Rfl: 3 omeprazole (PriLOSEC) [address] capsule, Take 1 tablet by mouth in the morning., Disp: , Rfl: tadalafil (Cialis) 5 mg tablet, Take 5 mg by mouth in the morning., Disp: , Rfl: carvedilol (Coreg) 6.25 mg tablet, Take 1 tablet (6.25 mg) by mouth with breakfast and with evening meal., Disp: 60 tablet, Rfl: 11 ezetimibe (Zetia) 10 mg tablet, Take 1 tablet (10 mg) by mouth in the morning. (Patient not taking: Reported on 04/27/2024), Disp: 90 tablet, Rfl: 3 tloxuvcjxtsq-ffmr-okjrglgr-folic acid (Multivitamin 50 Plus) tablet, Take 1 tablet by mouth in the morning., Disp: , Rfl: Physical Exam Constitutional: Appearance: Normal appearance. HENT: Head: Normocephalic and atraumatic. Right Ear: External ear normal. Left Ear: External ear normal. Eyes: Extraocular Movements: Extraocular movements intact. Pupils: Pupils are equal, round, and reactive to light. Neck: Vascular: No carotid bruit. Cardiovascular: Rate and Rhythm: Normal rate and regular rhythm. Pulses: Normal pulses. Heart sounds: Norm (more content not included)... [facility] 07-06-2024 Instructions Justus Braxton MD - 07/06/2024 3:59 PM EST It was nice meeting you Continue taking Prilosec on empty stomach 30-60 minutes before breakfast If you have heartburn symptoms in the evening then take Pepcid as needed Please hold your Plavix 7 days before your procedure Plan for endoscopic ultrasound to evaluate subepithelial lesion in the esophagus documented in this encounter [facility] 07-06-2024 History and physical note Patient presents [...] MORNING *DO NOT CRUSH OR CHEW* - Wqpxyqrzuzowx-Wikznhbm-Cflqgx (MULTIVITAMIN 50 PLUS) tab; Take 1 tablet [...] Justus Braxton MD Gastroenterology, Hepatology and Nutrition [facility] 07-06-2024 History and physical note Patient presents [...] MORNING *DO NOT CRUSH OR CHEW* - Rpdxewjlvyhmn-Qyouijzr-Pzgjwr (MULTIVITAMIN 50 PLUS) tab; Take 1 tablet [...] Hepatology and Nutrition documented in this encounter [facility] 05-29-2024 Telephone encounter Note Spoke to patient and scheduled OV with Dr. Braxton on 07/06/24 at [facility] at 3:30 pm per message below. [facility] 05-29-2024 Miscellaneous Notes Spoke to patient and scheduled OV with Dr. Braxton on 07/06/24 at [facility] at 3:30 pm per message below. [...] Marisa Hu RN documented in this encounter [facility] 05-29-2024 Telephone encounter Note I agree may [...] is agreeable. Thank you Marisa Hu RN [facility] 05-28-2024 Hospital Discharge instructions Patient Education 05/28/2024 11:21:41 Kidney Stones, Lspj-xg-Xhmx Kidney Stones Kidney stones are rock-like masses [...] Follow these instructions at home: Medicines Take uthu-xip-gpcykmw and prescription medicines only as told by [...] provider. Document Revised: 03/08/2023 Document Reviewed: 03/08/2023 Shopping Mail Patient Education 2023 [employer]. Follow Up Care 05/08/2024 09:15:41 With:ISRAEL RUFFIN, Shade Robison, URL Address: [address] [place], [place] [id number]- When:6 months Comments:KUB, ANAMARIA and PSA [facility] 05-28-2024 Note Urology Office/Clini c Note Chief Complaint referral from Linda- BPH w/o LUTZ HPI Staff Referral by Dr. 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 Jacob Mckeon for BPH [...] E&M of New Patient High 60-74 Min 65869 Influenza immunization status assessed 1030F Medication list [...] Urnls Dip Stick Auto w/o Microscopy POC 88906 2. Kidney stone, (N20.0: Calculus of kidney)Kidney [...] stone prevention diet/fluids with patient. -Will call [facility] for addendum to CT report from 04/17/24 for stone sizing -KUB/ANAMARIA at [facility] in 6 months (reminder in place) -Increase fluids, add lemon/havasupai to diet -Low animal protein, low salt diet -Consider metabolic workup in the future -Call our office or go to ER for severe flank pain, N/V, fever/chills, inability to urinate -F/U [address] Wood to review KUB/ANAMARIA Ordered: E&M of New Patient High 60-74 Min 20051 3. 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 (more content not included)... [facility] Comment on above: Result Comment: Elec tronically Signed By: Olivia Dumont\.sinan\Date and Time Signed: 05/28/24 11:33 EDT 05-28-2024 [...] these instructions at home: Medicines ??? Take ivjd-rym-vbdqazv and prescription medicines only as told by [...] provider. Document Revised: 03/08/2023 Document Reviewed: 03/08/2023 Shopping Mail Patient Education ? 2023 [employer]. [facility] 05-27-2024 Telephone encounter Note Received referral [...] on Plavix Thank you. Marisa Hu RN [facility] 05-01-2024 Note Progress Note-Physic mamie Patient: OSWALD OCHOA Age: 69 years Sex: Male : 1955 Associated Diagnoses: None Author: Jm RUFFIN, Randell Bernardo Postoperative Information Postoperative disposition: Postoperative disposition: To PACU. Optimetrix number: Optimetrix number [id number]. Anesthetic utilized: General. Health Status Allergies: Allergic [...] when meets criteria ( To home ). [facility] Comment on above: Result Comment: Elec tronically Signed By: Randell Oneal MD\.br\Date and Time Signed: 05/01/24 16:04 EDT 05-01-2024 Evaluation + Plan note Extrac cayetano from: Title:ANES Post-operative Note---General Author: Randell Oneal MD. Date:05/01/24 Plan Transfer/Discharge: Transfer/Discharge Discharge when meets criteria ( To home ). Extracted from: Title:ANES Pre-operative Note 2022 Author:Randell Kidd Date:05/01/24 Plan [place] [employer] Anesthesiologists (ASA) physical status classification: Class III. Anesthetic Preoperative Plan: Anesthesia General. [facility] 10-04-2024 Hospital Discharge instructions Patient Education [...] unsweetened, w/added ascorbic acid 1 cup 0.5 Marshall 1 cup 0.7 Vegetables Cooked Green beans 1 cup 4.0 Carrots 1/2 cup sliced 2.3 Peas 1 cup 8.8 Potato (baked, with skin) 1 medium potato 3.8 Raw Waucoma (with peel) 1 cucumber 1.5 Lettuce 1 [...] 8.7 Peanuts 1/2 cup 7.9 [facility]. SEEK IMMEDIATE MEDICAL CARE IF: You [...] Nutrient Database for Standard Reference. Available at http://www.[employer].usda.gov/fnic/foodcomp/search/. Information adapted from: [employer] Patient Information 2009 eefoof.com. Hypercontext 2012 http://www.Silverpop/contents/tzrrhyjfupek-kdoxadj-hkxkiu-the-basics 05/01/2024 10:17:07 Colonoscopy, Care After Surgery Salam (CUSTOM) Colonoscopy Care After Surgery Please read [...] Follow Up Care 04/16/2024 11:17:17 With:Vinicio RUFFIN, PRIYANKA Kuhn, [facility] Address: [address], [address] [place] [phone] When: Unknown Comments:Office will call Date and Time of Follow-up Appt. [facility] 10-04-2024 NotePatient Education - Text Diverticulosis [...] unsweetened, w/added ascorbic acid 1 cup 0.5 Marshall 1 cup 0.7 Vegetables Cooked Green beans 1 cup 4.0 Carrots 1/2 cup sliced 2.3 Peas 1 cup 8.8 Potato (baked, with skin) 1 medium potato 3.8 Raw Waucoma (with peel) 1 cucumber 1.5 Lettuce 1 [...] 8.7 Peanuts 1/2 cup 7.9 Chart from [facility] 2013. SEEK IMMEDIATE MEDICAL CARE IF: You [...] Reference. Available at http://www.nal.usda.gov/fnic/foodcomp/search/. Information adapted from: ExitCare? Patient Information ?2009 eefoof.com. Hypercontext 2012 http://www.[employer]pop/contents/gymbjqceqqij-lcpksgb-beozmk-the-basics Colonoscopy Care After Surgery Please read the instructions outlined below and refer to this sheet in the next few weeks. These discharge instructions provide you with general information on caring for yourself after you leave thehospital. Your doctor may also give you specific [...] your doctor. Begin wit (more content not included)...[facility]10-04-2024 NoteProgress Note-Physician Patient: OSWALD OCHOA Age: [...] mg, Oral, q72hr, Refills(s) 0, Erectile dysfunction [facility]: Oral, Daily, Refill(s) 0, Prophylaxis [...] Oral, Daily Cialis 5 mg, Oral, q72hr [facility] , Oral, Daily glipiZIDE 10 mg ER [...] All Problems Chronic GERD / SNOMED CT 553221471 / Confirmed Hiatal hernia / SNOMED CT 679580919 / Confirmed Obesity due to excess calories / SNOMED CT 8971963157 / Confirmed, Active Problems (3) Chronic GERD Hiatal hernia Obesity due to excess calories , HTN, HLD, NIDDM, CAD s/p CABG x 5 2021 Histories Past Medical History: No active or resolved past medical history items have been selected or recorded. Family History: Heart disease Father Procedure history: Colonoscopy ([id number]). Social History Social & Psychosocial Habits Tobacco [...] 01 08:14) BMI 37.18 (MAY 01 08:14) Measurements from flowsheet : Measurements 05/01/2024 8:14 [...] review: No qualifying data available . Plan [place] [employer] Anesthesiologists (ASA) physical status classification: Class III. Anesthetic Preoperative Plan: Anesthesia General.[facility] Comment on above:Result Comment: Electronically Signed By: Jm RUFFIN, Randell Bernardo\.br\Date and Time Signed: 05/01/24 09:55 [id number] NoteCardiovascular Medicine [facility] SUBJECTIVE Oswald Ochoa is a 69 y.o. [...] OR CHEW*, Disp: 90 tablet, Rfl: 3 pftdktrolhhm-jvoz-fzpytcix-folic acid (Multivitamin 50 Plus) tablet, Take 1 [...] normally he is wit (more content not included)...[facility]01-22-2024 Evaluation note* Encounter Date Diagnosis Assessment Notes Treatment Notes Treatment Clinical Notes Jul, Type 2 diabetes mellitus with hyperglycemia, unspecified whether custodial insulin use (ICD-10 - E11.65) Reviews42 Other 01-12-2023 Evaluation note* Encounter Date Diagnosis Assessment Notes Treatment Notes Treatment Clinical Notes Jul, Colitis (ICD-10 - K52.9) Jul, Coronary artery disease, unspecified vessel or lesion type, unspecified whether angina present, unspecified whether [place] or transplanted heart (ICD-10 - I25.10) New medicine list and discussed symptoms with patient and Stable 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 Reviews42 Other 12-28-2022 Evaluation note* Encounter Date Diagnosis [...] condition Jun, Sore throat (ICD-10 - J02.9) Reviews42 Other 08-03-2022 Evaluation note* Encounter Date Diagnosis [...] (Suspected or Confirmed ) material was printed Reviews42 Other 06-29-2022 NoteMR#: [id number] I [facility] Pt. Name: Oswald Ochoa Admitted: 01/01/2022 Discharged: [...] COURSE: 66-year-old male who presented to an [facility] hospital after having an episode of postprandial left-sided chest pain that lasted for about 2 hours. Chest pain was associated with shortness of breath and tingling of both upper extremities and generalized weakness. He was then admitted to [facility] for further evaluation and CT surgery consultation. 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 Electronically Signed by: Jose R Guzman MD 01/24/2022 07:07 P Jose R Guzman MD I personally saw this patient on the day of the encounter, performed the south portion(s) of the service and participated in the management and confirm the resident's documentation. Please note there may be an additional personal documentation from me. Date Dict: 01/23/2022/12:20 P/Francisco Henley CNP Date Trans: 01/23/2022 10:56 P/laurieo [id number] [facility] Future App[facility]ments Appointment Date:05/01/2024 09:15:00 AM Scheduled Provider: Location:[facility] Appointment Type:Surgery [facility] Evaluation + Plan note Future Appointments Appointment Date:05/28/2024 10:00:00 AM Scheduled Provider:Olivia Dumont Location:[facility] Appointment Type:URO New Patient [facility] Evaluation + Plan note Future Appointments Appointment Date:11/20/2024 09:45:00 AM Scheduled Provider:Shade WOOD MD Location:[facility] Appointment Type:URO Office Visit Diagnostic Tests Pending * PSA Total 05/28/24 [facility] evaluation noteNo InformationNort [facility] Other Evaluation noteNo assessment information available [facility] Work Phone: Evaluation note* Diagnosis Subepithelial lesion of esophagus- Primary Hiatal hernia Diaphragmatic hernia without mention of obstruction or gangrene Gastroesophageal reflux disease, unspecified whether esophagitis present Diverticulosis Diverticulosis of colon (without mention of hemorrhage) [facility] Primary osteoarthritis of left knee- Primary Acute pain of left knee documented in this encounter [facility] Healthcare[facility] note* Diagnosis Primary osteoarthritis of left knee- Primary Acute pain of left knee documented in this encounter [facility] HealthcareHistory general Narrative - Reported* Type Description Date Medical History Hypertension Surgical History Open Heart 2021 Hospitalization History see above Reviews42 Other History general Narrative - Reported* Type Description Date Medical History coronary artery disease Medical History diverticulitis Medical History hyperlipidemia Medical History type 2 diabetes Medical History Hypertension Surgical History Open Heart 2021 Surgical History kidney stone Surgical History hemicolectomy Surgical History open cholecystectomy Surgical History right inguinal hernia Surgical History left ventral hernia Hospitalization History see above Reviews42 Other Hospital course Narrative No data available for this section [facility] Hospital Discharge instructions No data available for this section [facility] Progress note No data available for this section [facility] Reason for referral (narrative)* Outpatient Procedure (Routine) - New Request Specialty Diagnoses / Procedures Referred By Contac t Referred To Contact [facility] Diagnoses Subepithelial lesion of esophagus Procedures EGD - THERAPEUTIC, EUS, OR TUBE INTERVENTIONS EGD INTRMURAL US NEEDLE ASPIRATE/[place] [id number] [place] [address] [facility] [address] [place] [id number] Referral ID Status Reason Start Date Expiration Date Visits Requested Visits Authorized [id number] New Request Auto-Generat ed Referral 07/06/2024 07/06/2025 1 1 [facility] Summary Purpose Family History No Family History [...] section and content) DATE CREATED AUTHOR 01/25/2022 [facility] DATE CREATED AUTHOR AUTHOR'S ORGANIZ ATION 01/04/2023 [facility] DATE CREATED AUTHOR AUTHOR'S ORGANIZ ATION 05/09/2024 [facility] DATE CREATED AUTHOR AUTHOR'S ORGANIZ ATION 05/11/2024 [facility] DATE CREATED AUTHOR AUTHOR'S ORGANIZ ATION 05/22/2024 [facility] DATE CREATED AUTHOR AUTHOR'S ORGANIZ ATION 07/09/2024 [facility] DATE CREATED AUTHOR AUTHOR'S ORGANIZ ATION 10/24/2024 [facility] DATE CREATED AUTHOR AUTHOR'S ORGANIZ ATION 11/21/2024 [facility] DATE CREATED AUTHOR AUTHOR'S ORGANIZ ATION 11/25/2024 [facility] DATE CREATED AUTHOR AUTHOR'S ORGANIZ ATION 12/01/2024 [facility] REASON FOR VISIT (unrecogniz ed section and content) Reason Comments Appointment Reason Comments Clinician To Clinician Consult Reason Comments Pain Reason Onset Date Comments Injection 11/17/2024 Reason Comments Pain Care Teams (unrecognized sec tion and content) Team Status: Active Member Role Status Dates Jacob Mckeon MD Primary Care Provider Active Team Status: Inactive Member Role Status Dates Jacob Mckeon MD Primary Care Provide r, Attending Provider Active Start: March 24, 2024 End: March 24, 2024 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 Caddy Relationship Specialty Start Date End Date Jacob Mckeon MD PCP - General Family Medicine 01/15/23 Grocery Caddy Relationship Specialty Start Date End Date Jacob Mckeon MD [address] [place] [phone] PCP - General Family Medicine 01/15/23 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 Caddy Relationship Specialty Start Date End Date Jacob Mckeon MD [address] [place] [phone] PCP - General Family Medicine 01/15/23 Goals (unrecognized section and content) Goals may be documented in a n alternate section Source Comments (unrecognize d section and content) In the event this informatio n is protected by the Federal Confidentiality of Alcohol and Drug Abuse Patient Records regulations: The Federal rules restrict any use of the information to criminally investigate or prosecute any alcohol or drug abuse patient.[facility] the event this information is protected by the Federal Confidentiality of Alcohol and Drug Abuse Patient Records regulations: The Federal rules restrict any use of the information to criminally investigate or prosecute any alcohol or drug abuse patient.[facility] FOR RECORDS PERTAINING TO PATIENTS WHO ARE [...] BE BASED ON THE PRIMARY CLINICAL RECORDS. [facility] [employer] [facility]. provides no warranty or guarantee of the accuracy or completeness of information in this document.
--- NOTE | 2024-12-10 07:31 | XR_ITS ---
The [address] [address] Patient Name: CORNEL GIL MRN: [id number] date: 1955 Sex: M Assigned Patient Location: [facility] Current Patient Location: [facility] Accession/Order Number: [id number] Exam Date: 12/10/2024 07:42 Report Date: 12/10/2024 07:44 At the request of: BEN WOOD MD Procedure: XR abdomen 1V XR abdomen 1V 12/10/2024 7:31 AM SIGNS AND SYMPTOMS: ^kidney stones \S.br\ PROTOCOL: Frontal radiographs of the abdomen and pelvis COMPARISON: 10/01/2024 FINDINGS: At least 3 stones are noted in the left renal collecting system similar to the prior exam. There is a 1 cm stone along the expected location of the distal right ureter. This is unchanged. Presumed vascular calcifications are present in the pelvis. Atherosclerotic changes are noted in the abdominal aorta. There is evidence of prior cholecystectomy. Degenerative changes are noted in the lumbar spine. XR/XR abdomen 1V IMPRESSION: At least 3 stones are noted in the left renal collecting system similar to the prior exam. There is a 1 cm stone along the expected location of the distal right ureter. This is unchanged. Impression dictated by: Oscar Ribeiro M.D. 12/10/2024 7:44 AM Dictation Location: [place] [address] Electronically authenticated by: [id number] Y Date: 12/10/2024 07:44
[2024-12-10 07:45] LABS: Glucometer 164 mg/dL (74-106)
[2024-12-10] MEDS: LACTATED RINGER'S SOLUTION 1,000 ML 50 ML IV ×2 (07:55→10:42)
[2024-12-10] MEDS: CEFAZOLIN SODIUM 2 GM/50 ML D5W PREMIX IV (08:40)
--- NOTE | 2024-12-10 09:13 | P.URON_ITS ---
Urology Surgery Operative Note Operative Note Procedure Date: 12/10/24 Time Out Performed: yes Pre-op Diagnosis: Left nephrolithiasis Post-op Diagnosis: same as pre-op Procedures performed: 1. Left ESWL. Anesthesia: General-LMA Primary Surgeon: Shade Sainz Complications: None Estimated blood loss (mL): 0 Findings: 7 to 8 mm left renal calculus Specimens: None Drains: None Indications for Procedures: This gentleman has a 7 to 8 mm left renal calculus which is nonobstructing. He now presents for left ESWL. He has signed an informed consent after all risks were explained. Some of these include bleeding, perinephric hematoma, infection and anesthesia to name a few. He has withheld his blood thinners for over 1 week. Detailed description of Procedure: The patient was brought to the Operating Room and placed on Siemens electromagnetic lithotripsy treatment table in the supine position. SCDs were placed on their lower extremities and turned on and functioning during the entire case. Timeout was done by all parties in the room. We all agreed upon the patient's identification and the planned procedures for this patient. General Anesthesia was then administered via LMA. Treatment head was then brought to the patient's correct side. While using flourscopy the stone was identified and lined up into the crosshairs. We then began applying shocks. I started by applying shocks at power level 2.0 and then increased to a maximum power level of 3.5. Intermittent fluoroscopy revealed that the stone slowly steadily fragmented. We applied a total of 2000 shocks. Our last fluoroscopic image revealed no evidence of any formed stone remaining. The procedure was then terminated. He was then transferred to a [facility] bed and wheeled to PACU in stable condition.
--- NOTE | 2024-12-10 09:26 | PC.NURSE ---
[place] area on left flank with non- draining abrasions
--- NOTE | 2024-12-10 11:52 | PC.NURSE ---
urinated tea colored urine prior to discharge
== END 2024-12-10 11:52 | disposition home or self-care (01) ==
PROVIDERS: PCP Family Medicine; Visit Provider Urology
PROC: (CPT 50590; principal; 2024-12-10 08:45)
DX: N20.0 Calculus of kidney (principal); K21.9 Gastro-esophageal reflux disease without esophagitis; N52.9 Male erectile dysfunction, unspecified; Z90.49 Acquired absence of other specified parts of digestive tract; Z95.1 Presence of aortocoronary bypass graft; Z87.891 Personal history of nicotine dependence; I25.10 Atherosclerotic heart disease of native coronary artery without angina pectoris; R06.09 Other forms of dyspnea; I10 Essential (primary) hypertension; E78.5 Hyperlipidemia, unspecified; K44.9 Diaphragmatic hernia without obstruction or gangrene
CPT/HCPCS: 50590; 36415; 74018; 82948; J0690; J1100; J1885; J2250; J2371; J2405; J2704; J3010

== ENCOUNTER 2025-01-28 09:17 | Outpatient (OUT) | payer MEDICARE, OTHER, SELFPAY ==
--- OUTSIDE RECORDS SUMMARY | 2025-01-28 09:33 | XMS_ITS | CCD ---
Author Organization [facility] Care Team Providers Care Collections Attorney Name Role Phone JACOB MCKEON Primary Care [...] JACOB Jimenez Admitting Unavailable MCKEON, DR JACOB iJmenez Consulting Unavailable JUAREZ, CINDY Admitting Unavailable JUAREZ, [...] MARCELINO Admitting Unavailable EDILBERTO, MARCELINO Consulting Unavailable ERENDIRA STERNA Attending Unavailable LINDA, DR JACOB Jimenez Primary [...] Care Unavailable JACOB MCKEON Primary Care Physician Mouchli, Mohamad A. Referring Unavailable Mouchli, Mohamad A. Attending Unavailable Mouchli, Mohamad A. Admitting Unavailable Mouchli, Mohamad A. Attending Unavailable Jacob Mckeon MD Primary Care Provider [phone] JACOB MCKEON Primary Care Unavailable Justus Braxton Attending Unavailable Mouchli, Mohamad A. Referring Unavailable Mouchli, Mohamad A. Attending Unavailable Mouchli, Mohamad A. Admitting Unavailable JACOB MCKEON Referring Unavailable Olivia Woodard Attending Unavailable Jacob Mckeon MD Primary Care Provider Jacob Mckeon MD Primary Care Provider Jacob Mckeon MD Primary Care Provider KEHINDE GONZALEZ Attending Unavailable KEHINDE GONZALEZ Referring Unavailable JR. SNYDER GEORGE C Attending Unavaila ble MARCELINO STERN Attending Unavailable ALGHOTHANI, MOHAMAD Attending Unavailable Shade WOOD Attending Unavailable Shade WOOD Attending Unavailable Mouchli, Mohamad A. Attending Unavailable Mouchli, Mohamad A. Referring Unavailable Mouchli, Mohamad A. Admitting Unavailable Shade WOOD Attending Unavailable Allergies Allergy Classification Reported Allergen(s) Allergy Type Date of Onset Reaction(s) Facility (1 source) patient allergy list reviewed by nurse or physicia Propensity to adverse reactions 4 Comment:Done BMG Controls Other (1 source) Allergies Reconciled Propensity to adverse reactions Unknown BMG Controls Other (3 sources) No Known Medication Allergies; Translations: [No Known Medication Allergies] Propensity to adverse reactions (disorder) [facility] Repository Medications Current Medications Medication Drug Class(es) Dates Sig (Normalized) Sig (Original) Accu-Chek Guide - (1 source) Accu-Chek Guide - USE TO TEST ONCE A DAY *DX E11.65* for 90 Active [id number] 200 actuat albuterol 0.09 mg/actuat metered dose inhaler (6 sources) beta2-Adrenergic Agonist Start: 10-02-2023 take 2 puff(s) by inhalation every four to six hours as needed Albuterol Sulfate Active 2 PUFF INHALATION EVERY 4-6 HOURS October 02, 2023 1:00am FreeTextSi puffs as needed Inhalation every 4-6 hours; Note: Source Status: Not-Taking\PRN; Refills: 0; Qty: 1 each; Provider: Wetson Hernandez Start: 07-25-2022 take 2 puff(s) by [...] Lactobacillus rhamnosus GG (3 sources) Start: 09-16-2018 [employer] Grid Oral, Daily, Refill(s) 0, Prophylaxis Start Date: [...] Coronary arteriosclerosis; Translations: [Atherosclerotic heart disease of [place] coronary artery without angina pectoris] Onset: 12-26-2021 [...] Follow Up with ISRAEL RUFFIN, Shade Robison, URL When: Where: [address] [place] [address]- Medications What How Much When Instructions Unchanged [...] including vitamins, herbs, eye drops, creams, and yvyh-xsa-lgaltcm medicines. ??? Any problems you or family [...] energy drin (more content not included)... Normal [facility] Ambulatory Visit Summary Ambulatory Visit Summary OSWALD [...] Following Appointments Follow Up with ISRAEL RUFFIN, JYOTI Sauceda When: Where: [address] [place] [address]- Medications What How Much When Instructions Unchanged [...] including vitamins, herbs, eye drops, creams, and lhan-kzk-edtagjo medicines. ??? Any problems you or family [...] energy drin (more content not included)... Normal [facility] Urology Office/Clinic Noteon 11-20-2024 Urology Office/Clinic Note [...] 4. 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 CABG x 5. Hx of open heart surgery. Elevated risk for perio complications, Plavix and asa will need held prior to ESWL. cardiology will need to be involved with this. Follow-up With When Contact Information ISRAEL RUFFIN, Shade oRbison, [address] [place] [address]- Additional Instructions: Schedule L ESWL Patient Education ESWL for Kidney Stones I, Brandy Stearns, personally scribed for Dr. Wood on 11/20/2024 11:15:45. . Documentation recorded by the scribe, Brandy Stearns, accurately reflects the services(s) I performed and [...] (05/01/2024), Colonosc (more content not included)... Normal [facility] Comment on above: Result Comment: Elec tronically [...] discussed. Consent was given by the patient. 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 He would like [facility] Order faxed to [facility]. Will monitor All results in chart for review. Giuseppe Gillis [facility] 37on 10-08-2024 37 *We will switch meto prolol to carvedilol. Normal [facility] Office Visiton 10-08-2024 Follow-up visit [id number] Oswald Ochoa 1955 M Date Provider Department Center 10/08/2024 Adela-MARCELINO STERN CARD [facility] No family history on file Level of Service:47509 MT OFFICE/OUTPATIENT ESTABLISHED MOD [facility] 30 MIN Reason for Visit and Comments: Coronary Artery Disease [187] Normal [facility] CNOVon 07-06-2024 CNOV Office Visit (GASTNO ) OSWALD OCHOA ([id number]) 1955 M Date Time Provider Department 07/06/24 [...] MORNING *DO NOT CRUSH OR CHEW* - Swbusmctbnqzc-Oeetlbob-Lyhyj n (MULTIVITAMIN 50 PLUS) tab; Take 1 tablet by mouth every morning. - omeprazole (PRILOSEC) 40 mg capsule; Take 40 mg by mouth once daily. - polyethylene glycol (more content not included)... Normal [facility] HISTORY PHYSICALon HISTORY PHYSICAL HNO ID: [id number] Author: JUSTUS BRAXTON MD Service: ? Author [...] MORNING *DO NOT CRUSH OR CHEW* - Hmffocnokmudp-Dyurdbhq-Gugmj n (MULTIVITAMIN 50 PLUS) tab; Take 1 [...] status pos (more content not included)... Normal [facility] Ambulatory Visit Summaryon 1 Ambulatory Visit Summary [...] Shade Robison Where: [facility] [address] [address]- Medications What How Much When Instructions Unchanged [...] for choosing us for your care. Normal [facility] Ambulatory Visit Summary Ambulatory Visit Summary OSWALD [...] RUFFIN, Shade Robison Where: [place] [address]- Medications What How Much When Instructions Unchanged [...] for choosing us for your care. Giuseppe [facility] CNPNon 05-27-2024 CNPN Telephone (GASTNO) OSWALD OCHOA ([id number]) 1955 M Date Time Provider Department 05/27/24 [...] 3:30 if pt is agreeable. Thank you MarisaAngel Shultz RN 05/29/2024 2:37 PM Signed Spoke to patient and scheduled OV with Dr. Braxton on 07/06/24 at [facility] at 3:30 pm per message below. Allergies As of Date: 05/27/2024 (Not on File) Date Reviewed: Never Reviewed Reason for Visit: Appointment [186] Problem List As Of Date: 05/27/2024 (None) Encounter Status:Closed by ANGEL RODRIGUEZ on 05/29/[address] [facility] [address] Chest w/ Contraston 05-22 CT Chest [...] Mooney FINAL REPORT Dictated: 05/22/2024 12:36 pm Armaan Manzano MD Signed (Electronic Signature): 05/22/2024 12:36 pm Signed by: Armaan Manzano MD Transcribed by: WEI Technologist: DPR Technical Comments GFR (mL/min/1/73m2) >60 Contrast: Isovue 300 Contrast amount in ml's: 100 Normal [facility] CHEMISTRYOrdered By: SYSTEM SYSTEM on 05-21-2024 Creatinine [Mass/Vol] 0.9 mg/dL Normal 0.5 - 1.3 mg/dL Remisol Chem eGFR 92 mL/min/1.73 m2 Normal >=59mL/min /1.73 m2 Remisol Chem Creatinineon 05-21-2024 Creatinine [Mass/Vol] 0.9 mg/dL Normal 0.5-1.3 [facility] Comment on above: Performed By: #### 2 [id number] #### [facility] Laboratory [address] [place] [address] eGFRon 05-21-2024 eGFR 92 mL/min/1.73 m2 Normal >=59 [facility] Comment on above: Performed By: #### 1 [id number] #### [facility] Laboratory [address] [place] [address] Reminderson 05-08-2024 Reminders Reminders From: Elizabeth Rangel To: [facility] - Reminders/Recalls; Sent: 05/08/2024 13:47:56 EDT Show up: 04/01/2029 13:47:00 EDT Subject: Ambulatory Reminder- colonoscopy 5 year recall Due Date/Time: 05/01/2029 13:47:00 EDT Reminder/Recall Colonoscopy Dr Mooney- 05/01/2024 5 year recall Normal [facility] Result Letter Officeon 05-08 Result Letter Office Result Letter Office May 08, 2024 OSWALD [address] [place] [address] : 1955 Below is a summary of [...] letter prior to your next due date. [facility] [phone] Normal [facility] Surgical Pathology Reporton 05-07-2024 Surgical Pathology Report [facility] [address] [place] [address]- Surgical Pathology Report Collected Date/Time: 05/01/2024 09:47 [...] is entirely submitted in one cassette. (DC) DC:[facility] Surgical Pathology Report Collected Date/Time: 05/01/2024 09:47 EDT Pathologist: Gerber RUFFIN PhD, Mely Crockett Received Date/Time: 05/01/2024 11:17 EDT Alissa Mooney MD. Alissa Mooney MD Microscopic Description The use of one or more reagents in the above tests is regulated as an analyte specific reagent (ASR). The test or tests are ordered following initial H&E microscopic examination. The performance characteristics were determined by the Laboratory of [facility]. They have not been cleared or approved by the US Food and Drug Administration. The FDA has determined that such clearance or approval is not necessary. These tests are used for clinical purposes. They should not be regarded as investigational or for research. Appropriate positive and negative controls are performed and are acceptable. Normal [facility] Comment on above: Performed By: #### 4 [id number] #### [facility] [address] [place] [address] Main OR Intraoperative Recor don 05-05-2024 Main OR Intraoperative Record Main OR Intraoperative Record IntraOp Document Type FT Summary Primary Physician: Alissa Mooney MD Finalized Date/Time: 05/05/24 08:07:07 Pt. Name: OSWALD OCHOA/Sex: 1955 Male Med Rec #: [id number] Physician: Alissa Mooney MD Financial #: [id number] Pt. Type: O Room/Bed: / Admit/Disch: 05/01/24 08:00:36 - 05/01/24 23:59:59 Institution: Case Times FT Entry 1 Patient Times In Room 05/01/24 09:39:00 Out Room 05/01/24 10:04:00 Procedure Times Start 05/01/24 09:45:00 Stop 05/01/24 10:01:00 Anesthesia Times Start 05/01/24 09:39:00 Stop 05/01/24 10:04:00 Time at [facility] 05/01/24 09:53:00 Last Modified By: Dayana BLANCA, Hamilton Jimenez 05/01/24 10:04:34 General Comments: 0951 EGD completed MSRN 0952 Colonoscopy started MSNR 05/05/24 Chart opened to review and send charges LRoth CSFA Case Attendance FT Entry 1 Entry 2 Entry 3 Case Attendee Lashell VERDUZCO, Christian Anne RN, Joyce Sanchez Role Performed Anesthesiologist Department Chairperson - Primary Staff - Other Product Managent Intern Time In 05/01/24 09:39:00 05/01/24 09:39:00 05/01/24 09:59:00 Time Out 05/01/24 09:45:00 05/01/24 10:04:00 05/01/24 10:04:00 Procedure EGD AND COLONOSCOPY(.) EGD AND COLONOSCOPY(.) EGD AND COLONOSCOPY(.) Comments Dr. Oneal supervising help in room case Last Modified By: Dayana RN, Hamilton Anne RN, Hamilton Anne RN, Hamilton Jimenez 05/01/24 10:04:35 05/01/24 10:04:35 05/01/24 10:04:35 Entry [...] By: Dayana RN, Hamilton Anne RN, Hamilton Anne RN, Hamilton Jimenez 05/01/24 10:04:35 05/01/24 10:04:35 05/01/24 10:04:35 Perioperative [...] Given Participants Hamilton Anne RN, Gunner RODRIGES, iVnicio Fuentes MD, Alissa Nunez, Jm RUFFIN, Randell [...] No Outcomes Met? Yes Last Modified By: Dayana BLANCA, Hamilton Jimenez 05/01/24 09:43:05 Post-Care Samuel (more content not included)... Normal [facility] Provider Letteron 05-05-2024 Provider Letter Provider Letter May 05, 2024 OS[address]D [address] [place] [address] : 1955 Dear Oswald, We have been trying to reach you with no success. It is important that you return our call regarding further orders upon receiving this letter. Also, at the time of your call, please provide us with your current information. Thank you for your prompt attention to this matter. Sincerely, [facility] Discharge Instructionson Discharge Instructions Discharge Instructions OSWALD [...] 10 mg ER Tab) lactobacillus rhamnosus GG ([facility]) latanoprost ophthalmic (latanoprost 0.005% preservative-free ophthalmic [...] Follow Up with Vinicio RUFFIN, PRIYANKA Kuhn, [facility] When: Comments: Office will call Date and Time of Follow-up Appt. Where: [address] [place] [phone] Medications What How Much When Instructions Next Dose Unchanged aspirin (aspirin 81 mg Oral EC Tab) By Mouth Every day Unchanged clopidogrel (Plavix 75 mg Tab) By Mouth Every day Unchanged furosemide (Lasix 20 mg Tab) By Mouth Every day Unchanged glipiZIDE (glipiZIDE 10 mg ER Tab) By Mouth Every day Unchanged lactobacillus rhamnosus GG ([employer]) By Mouth Every day Unchanged latanoprost ophthalmic [...] unsweetened, w/added ascorbic acid 1 cup 0.5 Bleckley 1 cup 0.7 Vegetables Cooked Green beans 1 cup 4.0 Carrots 1/2 cup sliced (more content not included)... Normal [facility] Comment on above: Result Comment: Elec tronically Signed By: Heber BLANCA, Tova\.sinan\Date and Time Signed: 05/01/24 10:17 EDT H&P [...] GERD and polyps -EGD and colonoscopy Normal [facility] Main OR PACU II Recordon Main OR PACU II Record Main OR PACU II Record PACU Phase II Document Type FT Summary Primary Physician: Alissa Mooney MD Finalized Date/Time: 05/01/24 13:09:40 Pt. Name: OSWALD OCHOA Peter/Sex: 1955 Male Med Rec #: [id number] Physician: Alissa Mooney MD Financial #: [id number] Pt. Type: O Room/Bed: / Admit/Disch: 05/01/24 [...] 13:04 Tova Buck RN 05/01/24 13:09 Normal [facility] Main OR Preoperative Recordo n 05-01-2024 Main OR Preoperative Record Main OR Preoperative Record Holding Area Document Type FT Summary Primary Physician: Alissa Mooney MD Finalized Date/Time: 05/01/24 08:37:09 Pt. Name: JEFFERYOSWALD/Sex: 1955 Male Med Rec #: [id number] Physician: Alissa Mooney MD Financial #: [id number] Pt. Type: O Room/Bed: / Admit/Disch: 05/01/24 [...] By: Makayla Yi RN 05/01/24 08:37 Normal [facility] Operative Reporton Operative Report Operative Report Patient: OSWALD OCHOA Age: 69 years Sex: Male : 1955 Associated Diagnoses: None Author: Alissa Mooney MD Pre-Procedure Procedure Date 05/01/2024 10:06:00 . Procedure Type: Colonoscopy with removal of tumor(s), polyp(s), or other lesion(s) by cold snare technique. Procedure provider Performed by Alissa Mooney MD. Current history and physical Documented on chart. Colonoscopy ([id number]).. Past Medical History No active or resolved past medical history items have been selected or recorded.. Family History Heart disease Father . Procedure History Colonoscopy ([id number]).. Colorectal neoplasm risk assessment High risk Previous [...] 3. Diverticulosis throughout the whole colon 4. Zzgo-tt-msso surgical anastomosis in the sigmoid colon 5. Internal hemorrhoids 6. Normal terminal ileum Images Procedure images: Rec1_hd_video_4__T09_ 03_28_216.jpg Rec1_hd_video_4__T09_ _03_345.jpg Rec1_hd_video_4__04T09_ 04_12_293.jpg Rec1_hd_video_4__T09_ 07_05_495.jpg Rec1_hd_video_4_10_04T09_ 07_55_123.jpg Rec1_hd_video_4_10_T09_ 08_11_417.jpg Rec1_hd_video_4__T09_ 10_06_002.jpg Rec1_hd_video_4__T09_ 10_18_585.jpg Rec1_hd_video_4__T09_ 10_40_884.jpg Rec1_hd_video_4__04T09_ 11_25_590.jpg . Post-Procedure Complications: none. Estimated blood [...] hours. Education and Follow-up: Counseled: Patient, Family. [facility] Comment on above: Result Comment: Elec tronically Signed By: Vinicio RUFFIN, Alissa Cuello.br\Date and Time Signed: 05/01/24 10:08 EDT Other Comment: Sadia ludwig Attachment - attachment storage system not supported [id number] Can be viewed in source system Missing Attachment - attachment storage system not supported [id number] Can be viewed in source system Missing Attachment - attachment storage system not supported [id number] Can be viewed in source system Missing Attachment - attachment storage system not supported [id number] Can be viewed in source system Missing Attachment - attachment storage system not supported [id number] Can be viewed in source system Missing Attachment - attachment storage system not supported [id number] Can be viewed in source system Missing Attachment - attachment storage system not supported [id number] Can be viewed in source system Missing Attachment - attachment storage system not supported [id number] Can be viewed in source system Missing Attachment - attachment storage system not supported [id number] Can be viewed in source system Missing Attachment - attachment storage system not supported [id number] Can be viewed in source system Operative [...] mg, Oral, q72hr, Refills(s) 0, Erectile dysfunction [facility]: Oral, Daily, Refill(s) 0, Prophylaxis [...] Images Procedure images: Rec_hd_video_2023__08_ 57_34_985.jpg Rec_hd_video_2023__08_ 57_42_599.jpg Rec_hd_video_2023__08_ 58_09_674.jpg Rec_hd_video_2023__08_ 59_13_679.jpg Rec1_hd_video_2023__04T09_ 00_15_135.jpg Rec1_hd_video_2023__T09_ 00_33_589.jpg . Post-Procedure Complications: none. Estimated blood loss: minimal. Specimens: sent to pathology. Devices/ implants: none left in place. 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 Hiatal hernia Gastropathy Recommendations: -Resume previous diet -Resume home medications -Await pathology results, follow in GI clinic in 1-2 after discharge Normal [facility] Comment on above: Result Comment: Elec tronically Signed By: Vinicio RUFFIN, Alissa Nunez\.br\Date and Time Signed: 05/01/24 10:06 EDT Other Comment: Sadia ludwig Attachment - attachment storage system not supported [id number] Can be viewed in source system Missing Attachment - attachment storage system not supported [id number] Can be viewed in source system Missing Attachment - attachment storage system not supported [id number] Can be viewed in source system Missing Attachment - attachment storage system not supported [id number] Can be viewed in source system Missing Attachment - attachment storage system not supported [id number] Can be viewed in source system Missing Attachment - attachment storage system not supported [id number] Can be viewed in source system Office Visiton 04-27-2024 Follow-up visit [id number] Oswald Ochoa 1955 M Date Provider Department Center 04/27/2024 3848-ALISSA GALINDO [facility] No family history on file Level of Service:52103 MT OFFICE/OUTPATIENT ESTABLISHED LOW MDM 20 MIN Normal [facility] Ambulatory Visit Summaryon 0 04-16-2024 Ambulatory Visit Summary Ambulatory Visit Summary JEFFERY OSWALD :1955 Visit Date:04/16/2024 Ambulatory Visit Instructions Your [...] 10 mg ER Tab) lactobacillus rhamnosus GG ([employer]) latanoprost ophthalmic (latanoprost 0.005% preservative-free ophthalmic solution) lisinopril metoprolol (metoprolol succinate 100 mg ER Tab) omeprazole tadalafil (Cialis) Procedures Performed Colonoscopy. Discharge Vitals Heart Rate (Peripheral) 51 Blood Pressure 162/89 Height 172.7 cm Height 68 in Weight 110.9 kg Weight 243.98 lb BMI 37.18 What to do next Scheduled Follow-Up Appointments Saturday 9:15 AM EDT Where: [facility] Medications What How Much [...] questions or concerns Unchanged lactobacillus rhamnosus GG ([employer]) By Mouth Every day Contact prescribing physician [...] for choosing us for your care. Normal [facility] Gastroenterology Office/Clin ic Noteon 04-16-2024 Gastroenterology Office/Clinic [...] Oral, Daily Cialis, 5 mg, Oral, q72hr [facility], Oral, Daily glipiZIDE 10 mg ER Tab, [...] influenza virus vaccine, inactivated 05/04/2016 Recorded Normal [facility] Comment on above: Result Comment: Elec tronically Signed By: Vinicio RUFFIN, Alissa Nunez\.br\Date and Time Signed: 04/16/24 10:43 EDT PROF CHEM 8 (BAS METB)on Anion gap [Moles/Vol] 16.3 mmol/L Normal [facility] Comment on above: Performed By: #### B MP ####[facility] [address] [place] [address]DrJonathan Mayes Calcium [Mass/Vol] 9.4 mg/dL Normal 8.5-10.1 [facility] Comment on above: Performed By: #### B MP ####[facility] [address] [place] [address]DrJonathan Mayes Chloride [Moles/Vol] 98 mmol/L Normal 98-107 [facility] Comment on above: Performed By: #### B MP ####[facility] [address] [place] [address]Dr. Mely Mayes CO2 [Moles/Vol] 26.0 mmol/L Normal 21.0-32.0 [facility] Comment on above: Performed By: #### B MP ####[facility] [address] [place] [address]Dr. Leigh Anndayana Mayes Creatinine [Mass/Vol] 1.36 mg/dL Critically high 0.70-1.30 [facility] Comment on above: Performed By: #### B MP ####[facility] [address] [place] [address]Dr. Mely Mayes EGFR-AF POLISH >60 Normal >=60 [facility] Comment on above: Performed By: #### B MP ####[facility] [address] [place] [address]Dr. Mely Mayes EGFR-NON AF POLISH 52 mL/min/1.73m2 Critically low >=60 [facility] Comment on above: Performed By: #### B MP ####[facility] [address] [place] [address]Dr. Leigh Anndayana Gerber Glucose [Mass/Vol] 211 mg/dL Critically high 74-106 [facility] Comment on above: Performed By: #### B MP ####[facility] [address] [place] [address]Dr. Mely Mayes Potassium [Moles/Vol] 4.3 mmol/L Normal 3.5-5.1 [facility] Comment on above: Performed By: #### B MP ####[facility] [address] [place] [address]Dr. Mely Mayes Sodium [Moles/Vol] 136 mmol/L Normal 136-145 [facility] Comment on above: Performed By: #### B MP ####[facility] [address] [place] [address]Dr. Mely Mayes Urea nitrogen [Mass/Vol] 10.0 mg/dL Normal 7.0-18.0 [facility] Comment on above: Performed By: #### B MP ####[facility] [address] [place], [place] [address]Dx. Mely Mayes Urea nitrogen/Creatinin e [Mass ratio] 7.4 mg/mg Normal [facility] Comment on above: Performed By: #### B MP ####[facility] [address] [place], [place] [address]Do. Mely Mayes ECHOCARDIO M/2D COMPLETEon 0 11-20-2022 ECHOCARDIO M/2D COMPLETE Patient: OSWALD OCHOA Exam Date: 11/20/2022 : 1955 Gender:M Ordering : [facility] [place] Admission #: [id number] Family : Order #: [id number] CLICK HERE TO VIEW EXAM ECHOCARDIOGRAM REPORT [...] Mcdaniel M.D. on 11/21/2022 at 08:[address] [facility] NM STRESS/REST MULTIon 11-20 NM STRESS/REST MULTI Patient: OSWALD OCHOA Exam Date: 11/20/2022 : 1955 Gender:M Ordering : [facility] [place] Admission #: [id number] Family : Order #: [id number] CLICK HERE TO VIEW EXAM RADIOLOGY REPORT [...] Vital M.D. on 11/22/2022 at 16:[address] [facility] BNPon 11-12-2022 Natriuretic peptide B (Bld) [Mass/Vol] 207.0 pg/mL Normal <=900.0 [facility] Comment on above: Performed By: #### L IPID, BNP, CMP #### [facility] [address] [place] [address] Dr. Mely Mayes LIPID PROFILEon 11-12-2022 CHOL-HDL RATIO NORM SEE BELOW Normal [facility] Comment on above: Result Comment: 3.3 - 4.4 LOW RISK 4.4 - 7.1 AVERAGE RISK 7.1 - 11.0 MODERATE RISK >11.0 HIGH RISK Performed By: #### L IPID, BNP, CMP #### [facility] [address] [address] [address] Mely Mayes Cholesterol [Mass/Vol] 166 mg/dL Normal <=200 [facility] Comment on above: Performed By: #### L IPID, BNP, CMP #### [facility] [address] [address] [address] Mely Mayes Cholesterol in HDL [Mass/Vol] 38 mg/dL Critically low 40-60 [facility] Comment on above: Performed By: #### L IPID, BNP, CMP #### [facility] [address] [place] [address] Dr. Mely Mayes Cholesterol in LDL [Mass/Vol] 106.2 mg/dL Normal [facility] Comment on above: Performed By: #### L IPID, BNP, CMP #### [facility] [address] [address] [address] Mely Mayes Cholesterol.total/ Cholesterol in HDL [Mass ratio] 4.4 {ratio} Normal [facility] Comment on above: Performed By: #### L IPID, BNP, CMP #### [facility] [address] [address] [address] Mely Mayes HDL NORMAL > or = 60 mg/dl - LO W CARDIOVASCULAR RISK <40 mg/dl - HIGH CARDIOVASCULAR RISK Normal [facility] Comment on above: Performed By: #### L IPID, BNP, CMP #### [facility] [address] [place] [address] Dr. Mely Mayes LDL CALC NORMAL SEE BELOW Normal [facility] Comment on above: Result Comment: <100 mg/dl OPTIMAL 100 - 129 mg/dl NEAR OR ABOVE OPTIMAL 130 - 159 mg/dl BORDERLINE HIGH 160 - 189 mg/dl HIGH >190 mg/dl VERY HIGH Performed By: #### L IPID, BNP, CMP #### [facility] [address] [address] [address] Mely Mayes Triglyceride [Mass/Vol] 109 mg/dL Normal <=150 [facility] Comment on above: Performed By: #### L IPID, BNP, CMP #### [facility] [address] [address] [address] Mely Mayes VLDL CALC 21.8 mg/dL Normal [facility] Comment on above: Performed By: #### L IPID, BNP, CMP #### [facility] [address] [address] [address] Mely Mayes PROF 14(COMP METB)on 023 Albumin [Mass/Vol] 4.1 g/dL Normal 3.4-5.0 [facility] Comment on above: Performed By: #### L IPID, BNP, CMP #### [facility] [address] [address] [address] Mely Mayes Albumin/Globulin [Mass ratio] 1.1 {ratio} Normal [facility] Comment on above: Performed By: #### L IPID, BNP, CMP #### [facility] [address] [address] [address] Mely Mayes ALP [Catalytic activity/Vol] 79 U/L Normal 46-116 [facility] Comment on above: Performed By: #### L IPID, BNP, CMP #### [facility] [address] [address] [address] Mely Mayes ALT [Catalytic activity/Vol] 36 U/L Normal 16-63 [facility] Comment on above: Performed By: #### L IPID, BNP, CMP #### [facility] [address] [address] [address] Mely Mayes Anion gap [Moles/Vol] 13.7 mmol/L Normal [facility] Comment on above: Performed By: #### L IPID, BNP, CMP #### [facility] [address] [address] [address] Mely Mayes AST [Catalytic activity/Vol] 18 U/L Normal 15-37 [facility] Comment on above: Performed By: #### L IPID, BNP, CMP #### [facility] [address] [place] [address] Dr. Mely Mayes Bilirubin [Mass/Vol] 0.6 mg/dL Normal 0.2-1.0 [facility] Comment on above: Performed By: #### L IPID, BNP, CMP #### [facility] [address] [place] [address] Dr. Mely Mayes Calcium [Mass/Vol] 10.3 mg/dL Critically high 8.5-10.1 [facility] Comment on above: Performed By: #### L IPID, BNP, CMP #### [facility] [address] [place] [address] Dr. Mely Mayes Chloride [Moles/Vol] 101 mmol/L Normal 98-107 [facility] Comment on above: Performed By: #### L IPID, BNP, CMP #### [facility] [address] [place] [address] Dr. Mely Mayes CO2 [Moles/Vol] 27.5 mmol/L Normal 21.0-32.0 [facility] Comment on above: Performed By: #### L IPID, BNP, CMP #### [facility] [address] [place] [address] Dr. Mely Mayes Creatinine [Mass/Vol] 1.17 mg/dL Normal 0.70-1.30 [facility] Comment on above: Performed By: #### L IPID, BNP, CMP #### [facility] [address] [place] [address] Dr. Mely Mayes EGFR-AF POLISH >60 Normal >=60 [facility] Comment on above: Performed By: #### L IPID, BNP, CMP #### [facility] [address] [place] [address] Dr. Mely Mayes EGFR-NON AF POLISH >60 Normal >=60 [facility] Comment on above: Performed By: #### L IPID, BNP, CMP #### [facility] [address] [place] [address] Dr. Mely Mayes Globulin (S) [Mass/Vol] 3.7 g/dL Normal [facility] Comment on above: Performed By: #### L IPID, BNP, CMP #### [facility] [address] [address] [address] Mely Mayes Glucose [Mass/Vol] 168 mg/dL Critically high 74-106 [facility] Comment on above: Performed By: #### L IPID, BNP, CMP #### [facility] [address] [address] [address] Mely Mayes Potassium [Moles/Vol] 4.2 mmol/L Normal 3.5-5.1 [facility] Comment on above: Performed By: #### L IPID, BNP, CMP #### [facility] [address] [place] [address] Dr. Mely Mayes Protein [Mass/Vol] 7.8 g/dL Normal 6.4-8.2 [facility] Comment on above: Performed By: #### L IPID, BNP, CMP #### [facility] [address] [place] [address] Dr. Mely Mayes Sodium [Moles/Vol] 138 mmol/L Normal 136-145 [facility] Comment on above: Performed By: #### L IPID, BNP, CMP #### [facility] [address] [place] [address] Dr. Mely Mayes Urea nitrogen [Mass/Vol] 10.0 mg/dL Normal 7.0-18.0 [facility] Comment on above: Performed By: #### L IPID, BNP, CMP #### [facility] [address] [place] [address] Dr. Mely Mayes Urea nitrogen/Creatinin e [Mass ratio] 8.5 mg/mg Normal [facility] Comment on above: Performed By: #### L IPID, BNP, CMP #### [facility] [address] [place] [address] Dr. Mely Mayes PROF CHEM 8 (BAS METB)on Anion gap [Moles/Vol] 14.7 mmol/L Normal [facility] Comment on above: Performed By: #### B MP ####[facility] [address] [id number]. Mely Mayes Calcium [Mass/Vol] 9.4 mg/dL Normal 8.5-10.1 [facility] Comment on above: Performed By: #### B MP ####[facility] [address] [id number]. Mely Mayes Chloride [Moles/Vol] 99 mmol/L Normal 98-107 [facility] Comment on above: Performed By: #### B MP ####[facility] [address] [id number]. Mely Mayes CO2 [Moles/Vol] 23.5 mmol/L Normal 21.0-32.0 [facility] Comment on above: Performed By: #### B MP ####[facility] [address] [place], [place] [address]Dr. Mely Gerber Creatinine [Mass/Vol] 1.53 mg/dL Critically high 0.70-1.30 [facility] Comment on above: Performed By: #### B MP ####[facility] [address] [address]Dr. Mely Gerber EGFR-AF POLISH 55 mL/min/1.73m2 Critically low >=60 [facility] Comment on above: Performed By: #### B MP ####[facility] [address] [address]Dr. Leigh Anndayana Gerber EGFR-NON AF POLISH 45 mL/min/1.73m2 Critically low >=60 [facility] Comment on above: Performed By: #### B MP ####[facility] [address] [id number]. Mely Mayes Glucose [Mass/Vol] 258 mg/dL Critically high 74-106 [facility] Comment on above: Performed By: #### B MP ####[facility] [address] [id number]. Mely Mayes Potassium [Moles/Vol] 4.2 mmol/L Normal 3.5-5.1 [facility] Comment on above: Performed By: #### B MP ####[facility] [address] [address]DrJonathan Mayes Sodium [Moles/Vol] 133 mmol/L Critically low 136-145 Th [facility] Comment on above: Performed By: #### B MP ####[facility] [address] [address]DrJonathan Mayes Urea nitrogen [Mass/Vol] 11.0 mg/dL Normal 7.0-18.0 [facility] Comment on above: Performed By: #### B MP ####[facility] [address] [address]DrJonathan Mayes Urea nitrogen/Creatinin e [Mass ratio] 7.2 mg/mg Normal [facility] Comment on above: Performed By: #### B MP ####[facility] [address] [address]DrJonathan Mayes CREATININEon 08-24-2022 Creatinine [Mass/Vol] 1.02 mg/dL Normal 0.70-1.30 [facility] Comment on above: Performed By: #### C GRAEME #### [facility] [address] [place] [address] Dr. Mely Mayes EGFR-AF POLISH >60 Normal >=60 [facility] Comment on above: Performed By: #### C GRAEME #### [facility] [address] [place] [address] Dr. Mely Mayes EGFR-NON AF POLISH >60 Normal >=60 [facility] Comment on above: Performed By: #### C GRAEME #### [facility] [address] [place] [address] ABD/PELV W CONon [...] CHRIS VITAL Date: 2022-08-24 09:22 Normal [facility] GLYCOHEMOGLOBIN A1Con 2022 ADA RECOMMENDATION SEE BELOW Normal [facility] Comment on above: Result Comment: ADA RECOMMENDED LIMIT 4.0 - 6.0 ADA THERAPEUTIC TARGET < 7.0 ACTION SUGGESTED > 7.0 Performed By: #### D ATA1C #### [facility] [address] [place], [place] [address] Dr. Mely Mayes Glucose [Mass/Vol] 163 mg/dL Normal [facility] Comment on above: Performed By: #### D ATA1C #### [facility] [address] [place], [place] [address] Dr. Mely Mayes HbA1c (Bld) [Mass fraction] 7.3 % Critically high 4.5-6.2 [facility] Comment on above: Performed By: #### D ATA1C #### [facility] [address] [address] [address] Mely Mayes COVID/FLU/RSV RT-PCRon 07-25 SARS-CoV-2 (COVID-19) RNA ESTEBAN+probe Ql (Unsp spec) Negative [facility] [employer] Other COVID/FLU/RSV RT-PCR Negative [facility] [place] [facility] [employer] Other Quick Strepon 07-25-2022 S. pyogenes Org specific cx Ql (Throat) Negative [facility] [employer] Other Quick Strep [facility] [employer] Other PROF CHEM 8 (BAS METB)on Anion gap [Moles/Vol] 11.0 mmol/L Normal [facility] Comment on above: Performed By: #### B MP ####[facility] [address] [address]DrJonathan Mayes Calcium [Mass/Vol] 9.2 mg/dL Normal 8.5-10.1 [facility] Comment on above: Performed By: #### B MP ####[facility] [address] [address]DrJonathan Mayes Chloride [Moles/Vol] 102 mmol/L Normal 98-107 [facility] Comment on above: Performed By: #### B MP ####[facility] [address] [address]Dr. Mely Mayes CO2 [Moles/Vol] 27.7 mmol/L Normal 21.0-32.0 [facility] Comment on above: Performed By: #### B MP ####[facility] [address] [address]DrJonathan Mayes Creatinine [Mass/Vol] 1.00 mg/dL Normal 0.70-1.30 [facility] Comment on above: Performed By: #### B MP ####[facility] [address] [place], [place] [address]Dr. Mely Myaes EGFR-AF POLISH >60 Normal >=60 [facility] Comment on above: Performed By: #### B MP ####[facility] [address] [id number]. Mely Mayes EGFR-NON AF POLISH >60 Normal >=60 [facility] Comment on above: Performed By: #### B MP ####[facility] [address] [address]DrJonathan Mayes Glucose [Mass/Vol] 139 mg/dL Critically high 74-106 [facility] Comment on above: Performed By: #### B MP ####[facility] [address] [address]Dr. Mely Mayes Potassium [Moles/Vol] 3.7 mmol/L Normal 3.5-5.1 [facility] Comment on above: Performed By: #### B MP ####[facility] [address] [address]DrJonathan Mayes Sodium [Moles/Vol] 137 mmol/L Normal 136-145 [facility] Comment on above: Performed By: #### B MP ####[facility] [address] [address]Dr. Mely Mayes Urea nitrogen [Mass/Vol] 10.0 mg/dL Normal 7.0-18.0 [facility] Comment on above: Performed By: #### B MP ####[facility] [address] [address]DrJonathan Mayes Urea nitrogen/Creatinin e [Mass ratio] 10.0 mg/mg Normal [facility] Comment on above: Performed By: #### B MP ####[facility] [address] [phone]. Mely Mayes PROF CHEM 8 (BAS METB)on Anion gap [Moles/Vol] 10.3 mmol/L Normal [facility] Comment on above: Performed By: #### B MP #### [facility] [address] [address] [address] Mely Mayes Calcium [Mass/Vol] 9.1 mg/dL Normal 8.5-10.1 [facility] Comment on above: Performed By: #### B MP #### [facility] [address] [address] [address] Mely Mayes Chloride [Moles/Vol] 103 mmol/L Normal 98-107 [facility] Comment on above: Performed By: #### B MP #### [facility] [address] [address] [address] Mely Mayse CO2 [Moles/Vol] 25.4 mmol/L Normal 21.0-32.0 [facility] Comment on above: Performed By: #### B MP #### [facility] [address] [place] [address] Dr. Mely Mayes Creatinine [Mass/Vol] 1.06 mg/dL Normal 0.70-1.30 [facility] Comment on above: Performed By: #### B MP #### [facility] [address] [address] [address] Mely Mayes EGFR-AF POLISH >60 Normal >=60 [facility] Comment on above: Performed By: #### B MP #### [facility] [address] [place] [address] Dr. Mely Mayes EGFR-NON AF POLISH >60 Normal >=60 [facility] Comment on above: Performed By: #### B MP #### [facility] [address] [address] [address] Mely Mayes Glucose [Mass/Vol] 247 mg/dL Critically high 74-106 [facility] Comment on above: Performed By: #### B MP #### [facility] [address] [address] [address] Mely Mayes Potassium [Moles/Vol] 3.7 mmol/L Normal 3.5-5.1 [facility] Comment on above: Performed By: #### B MP #### [facility] [address] [place] [address] Dr. Mely Mayes Sodium [Moles/Vol] 135 mmol/L Critically low 136-145 Th [facility] Comment on above: Performed By: #### B MP #### [facility] [address] [address] [address] Mely Mayes Urea nitrogen [Mass/Vol] 11.0 mg/dL Normal 7.0-18.0 [facility] Comment on above: Performed By: #### B MP #### [facility] [address] [address] [address] Mely Mayes Urea nitrogen/Creatinin e [Mass ratio] 10.4 mg/mg Normal [facility] Comment on above: Performed By: #### B MP #### [facility] [address] [address] [address] Mely Mayes PROF CHEM 8 (BAS METB)on Anion gap [Moles/Vol] 10.1 mmol/L Normal [facility] Comment on above: Performed By: #### B MP #### [facility] [address] [place] [address] Dr. Mely Mayes Calcium [Mass/Vol] 9.0 mg/dL Normal 8.5-10.1 [facility] Comment on above: Performed By: #### B MP #### [facility] [address] [place] [address] Dr. Mely Mayes Chloride [Moles/Vol] 100 mmol/L Normal 98-107 [facility] Comment on above: Performed By: #### B MP #### [facility] [address] [address] [address] Mely Mayes CO2 [Moles/Vol] 28.0 mmol/L Normal 21.0-32.0 [facility] Comment on above: Performed By: #### B MP #### [facility] [address] [address] [address] Mely Mayes Creatinine [Mass/Vol] 1.13 mg/dL Normal 0.70-1.30 [facility] Comment on above: Performed By: #### B MP #### [facility] [address] [place] [address] Dr. Mely Mayes EGFR-AF POLISH >60 Normal >=60 [facility] Comment on above: Performed By: #### B MP #### [facility] [address] [address] [address] Mely Mayes EGFR-NON AF POLISH >60 Normal >=60 [facility] Comment on above: Performed By: #### B MP #### [facility] [address] [address] [address] Mely Mayes Glucose [Mass/Vol] 285 mg/dL Critically high 74-106 T [facility] Comment on above: Performed By: #### B MP #### [facility] [address] [address] [address] Mely Mayes Potassium [Moles/Vol] 4.1 mmol/L Normal 3.5-5.1 [facility] Comment on above: Performed By: #### B MP #### [facility] [address] [address] [address] Mely Mayes Sodium [Moles/Vol] 134 mmol/L Critically low 136-145 Th [facility] Comment on above: Performed By: #### B MP #### [facility] [address] [address] [address] Mely Mayes Urea nitrogen [Mass/Vol] 9.0 mg/dL Normal 7.0-18.0 [facility] Comment on above: Performed By: #### B MP #### [facility] [address] [address] [address] Mely Mayes Urea nitrogen/Creatinin e [Mass ratio] 8.0 mg/mg Normal [facility] Comment on above: Performed By: #### B MP #### [facility] [address] [address] [address] Mely Mayes COVID Quick Testingon 2021 Result Positive [employer] Other BASIC METABOLIC PANELon 12-27 Calcium [Mass/Vol] 9.0 mg/dL Normal 8.6-10.3 [facility] Comment on above: Order Comment: Check Chest Tube Position Performed By: #### 1 0070, [id number] ####[facility] [place] [address], [facility] Chloride [Moles/Vol] 103 mmol/L Normal 98-107 [facility] Comment on above: Order Comment: Check Chest Tube Position Performed By: #### 1 69, [id number] ####[facility] [place] [address], [facility] CO2 [Moles/Vol] 24 mmol/L Normal 21-31 [facility] Comment on above: Order Comment: Check Chest Tube Position Performed By: #### 1 69, [id number] ####[facility] [id number], [facility] Creatinine [Mass/Vol] 0.84 mg/dL Normal 0.70-1.30 [facility] Comment on above: Order Comment: Check Chest Tube Position Performed By: #### 1 69, 14497 ####[facility] [place] [address], [facility] GFR/1.73 sq M.predicted among blacks MDRD (S/P/Bld) [Vol rate/Area] mL/min/{1.73_m2} Normal >60 [facility] Comment on above: Order Comment: Check Chest Tube Position Performed By: #### 1 69, [id number] ####[facility] [place] [address], [facility] GFR/1.73 sq M.predicted among non-blacks MDRD (S/P/Bld) [Vol rate/Area] mL/min/{1.73_m2} Normal >60 [facility] Comment on above: Order Comment: Check Chest Tube Position Performed By: #### 1 69, [id number] ####[facility] [id number], [facility] Glucose [Mass/Vol] 137 mg/dL High 70-100 [facility] Comment on above: Order Comment: Check Chest Tube Position Performed By: #### 1 69, 62946 ####[facility] [place] [address], [facility] Potassium [Moles/Vol] 3.6 mmol/L Normal 3.5-5.1 [facility] Comment on above: Order Comment: Check Chest Tube Position Performed By: #### 1 69, [id number] ####[facility] [place] [address], [facility] Sodium [Moles/Vol] 138 mmol/L Normal 136-145 [facility] Comment on above: Order Comment: Check Chest Tube Position Performed By: #### 1 69, [id number] ####[facility] [place] [address], [facility] Urea nitrogen [Mass/Vol] 13 mg/dL Normal 7-25 [facility] Comment on above: Order Comment: Check Chest Tube Position Performed By: #### 1 69, 00470 ####[facility] CBC COMPLETE BLOOD COUNTon 0 - Erythrocyte distribution width (RBC) [Ratio] 13.0 % Normal 11.5-15.0 [facility] Comment on above: Order Comment: evalu ate Performed By: #### 5 0608 ####[facility] [place] [address], [facility] Hematocrit (Bld) [Volume fraction] 33.3 % Low 39.0-50.0 [facility] Comment on above: Order Comment: evalu ate Performed By: #### 5 0608 ####[facility] [place] [address], [facility] Hemoglobin (Bld) [Mass/Vol] 11.8 g/dL Low 13.0-17.0 [facility] Comment on above: Order Comment: evalu ate Performed By: #### 5 0608 ####[facility] [place] [address], [facility] MCH (RBC) [Entitic mass] 30.3 pg Normal 27.0-33.0 [facility] Comment on above: Order Comment: evalu ate Performed By: #### 5 0608 ####[facility] MCHC (RBC) [Mass/Vol] 35.4 g/dL High 32.0-35.0 [facility] Comment on above: Order Comment: evalu ate Performed By: #### 5 0608 ####[facility] MCV (RBC) [Entitic vol] 85.6 fL Normal 82.0-98.0 [facility] Comment on above: Order Comment: evalu ate Performed By: #### 5 0608 ####[address] Nucleated RBC/100 WBC (Bld) [Ratio] 0 % Normal 0-0 [facility] Comment on above: Order Comment: evalu ate Performed By: #### 5 0608 ####[address] PLAT CNT 224 10*3/uL Normal 150-400 [facility] Comment on above: Order Comment: evalu ate Performed By: #### 5 0608 ####[facility] RBC (Bld) [#/Vol] 3.89 10*6/uL Low 4.20-5.70 [facility] Comment on above: Order Comment: evalu ate Performed By: #### 5 0608 ####[facility] WBC (Bld) [#/Vol] 9.88 10*3/uL Normal 4.00-10.60 [facility] Comment on above: Order Comment: evalu ate Performed By: #### 5 0608 ####[facility]3000 [facility] [place] [place] [address], [facility] MAGNESIUM BLOODon 01-07-2022 Magnesium [Mass/Vol] 2.3 mg/dL Normal 1.9-2.7 [facility] Comment on above: Order Comment: Check Chest Tube Position Performed By: #### 1 0070, 78073 ####[facility] [facility] [place] [address], [facility] POC GLUCOSE LABon 01-07-2022 Glucose [Mass/Vol] 143 mg/dL High 70-100 [facility] Comment on above: Performed By: #### 8 5499 ####[facility]3000 [facility] [place] [address], [facility] Glucose [Mass/Vol] 182 mg/dL High 70-100 [facility] Comment on above: Performed By: #### 8 5499 ####[facility] [place] [address], [facility] PORTABLE CHEST 1 VIEWon 12-27 PORTABLE CHEST 1 VIEW [facility] Department of Radiology [address] [place] [id number] Patient Name: OSWALD OCHOA : 1955 Sex: M Age: Race: White Pt. Location: [id number] Patient Status: I Ordered Date: 01/07/2022 5:00:00 [...] improved Electronically signed: YOLANDA GUTIERREZ. Transcribed by: [email or web address], User Resident: Electronically Signed by: YOLANDA GUTIERREZ @ 01/07/2022 09:39 AM Normal [facility] Comment on above: Order Comment: Evalu ate for Pneumothorax BASIC METABOLIC PANELon 12-27 Calcium [Mass/Vol] 9.0 mg/dL Normal 8.6-10.3 [facility] Comment on above: Order Comment: No: D o not add to previous draw Performed By: #### 1 007, 65202 ####[facility] [place] [address], [place] Chloride [Moles/Vol] 100 mmol/L Normal 98-107 [facility] Comment on above: Order Comment: No: D o not add to previous draw Performed By: #### 1 69, 44581 ####[facility] [place] [address], [place] CO2 [Moles/Vol] 26 mmol/L Normal 21-31 [facility] Comment on above: Order Comment: No: D o not add to previous draw Performed By: #### 1 69, 81534 ####[facility] [place] [address], [facility] Creatinine [Mass/Vol] 0.75 mg/dL Normal 0.70-1.30 [facility] Comment on above: Order Comment: No: D o not add to previous draw Performed By: #### 1 69, 24419 ####[facility] [place] [address], [facility] GFR/1.73 sq M.predicted among blacks MDRD (S/P/Bld) [Vol rate/Area] mL/min/{1.73_m2} Normal >60 [facility] Comment on above: Order Comment: No: D o not add to previous draw Performed By: #### 1 69, 43065 ####[facility] [facility] [place] [place] [address], [facility] GFR/1.73 sq M.predicted among non-blacks MDRD (S/P/Bld) [Vol rate/Area] mL/min/{1.73_m2} Normal >60 [facility] Comment on above: Order Comment: No: D o not add to previous draw Performed By: #### 1 69, 58424 ####[facility] [place] [address], [facility] Glucose [Mass/Vol] 139 mg/dL High 70-100 [facility] Comment on above: Order Comment: No: D o not add to previous draw Performed By: #### 1 69, 93675 ####[facility] [place] [address], [facility] Potassium [Moles/Vol] 3.4 mmol/L Low 3.5-5.1 [facility] Comment on above: Order Comment: No: D o not add to previous draw Performed By: #### 1 69, 67440 ####[facility] Sodium [Moles/Vol] 136 mmol/L Normal 136-145 [facility] Comment on above: Order Comment: No: D o not add to previous draw Performed By: #### 1 69, 71768 ####[facility]3000 [facility].[address] Urea nitrogen [Mass/Vol] 12 mg/dL Normal 7-25 [facility] Comment on above: Order Comment: No: D o not add to previous draw Performed By: #### 1 69, 55623 ####[facility] CBC COMPLETE BLOOD COUNTon 0 - Erythrocyte distribution width (RBC) [Ratio] 12.5 % Normal 11.5-15.0 [facility] Comment on above: Order Comment: No: D o not add to previous draw Performed By: #### 5 0608 ####[facility]3000 [facility].[address] Hematocrit (Bld) [Volume fraction] 30.8 % Low 39.0-50.0 [facility] Comment on above: Order Comment: No: D o not add to previous draw Performed By: #### 5 0608 ####[facility] [facility].[address] Hemoglobin (Bld) [Mass/Vol] 10.9 g/dL Low 13.0-17.0 [facility] Comment on above: Order Comment: No: D o not add to previous draw Performed By: #### 5 0608 ####[facility]3000 [facility].[address] MCH (RBC) [Entitic mass] 30.2 pg Normal 27.0-33.0 [facility] Comment on above: Order Comment: No: D o not add to previous draw Performed By: #### 5 0608 ####[facility] MCHC (RBC) [Mass/Vol] 35.4 g/dL High 32.0-35.0 [facility] Comment on above: Order Comment: No: D o not add to previous draw Performed By: #### 5 0608 ####[facility]3000 [facility].[address] MCV (RBC) [Entitic vol] 85.3 fL Normal 82.0-98.0 [facility] Comment on above: Order Comment: No: D o not add to previous draw Performed By: #### 5 0608 ####[facility]3000 [facility].[address] Nucleated RBC/100 WBC (Bld) [Ratio] 0 % Normal 0-0 [facility] Comment on above: Order Comment: No: D o not add to previous draw Performed By: #### 5 0608 ####[facility]3000 [facility].[address] PLAT CNT 169 10*3/uL Normal 150-400 [facility] Comment on above: Order Comment: No: D o not add to previous draw Performed By: #### 5 0608 ####[address] RBC (Bld) [#/Vol] 3.61 10*6/uL Low 4.20-5.70 [facility] Comment on above: Order Comment: No: D o not add to previous draw Performed By: #### 5 0608 ####[facility] [place] [address].[place] [address], [facility] WBC (Bld) [#/Vol] 11.89 10*3/uL High 4.00-10.60 [facility] Comment on above: Order Comment: No: D o not add to previous draw Performed By: #### 5 0608 ####[facility] [place] [address], [place] MAGNESIUM BLOODon 01-06-2022 Magnesium [Mass/Vol] 1.9 mg/dL Normal 1.9-2.7 [facility] Comment on above: Order Comment: No: D o not add to previous draw Performed By: #### 1 0070, 95375 ####[facility] [place] [address], [place] POC GLUCOSE LABon 01-06-2022 Glucose [Mass/Vol] 143 mg/dL High 70-100 [facility] Comment on above: Performed By: #### 8 5499 ####[facility] [place] [address], [place] Glucose [Mass/Vol] 159 mg/dL High 70-100 [facility] Comment on above: Performed By: #### 8 5499 ####[facility] [place] [address], [place] Glucose [Mass/Vol] 215 mg/dL High 70-100 [facility] Comment on above: Performed By: #### 8 5499 ####[facility] [place] [address], [place] Glucose [Mass/Vol] 153 mg/dL High 70-100 [facility] Comment on above: Performed By: #### 8 5499 ####[facility] [facility] [place] [address], [facility] PORTABLE CHEST 1 VIEWon 12-27 PORTABLE CHEST 1 VIEW [facility] Department of Radiology [address] [place] [address] Patient Name: OSWALD OCHOA : 1955 Sex: M Age: Race: White Pt. Location: [place] [address] Patient Status: I Ordered Date: 01/06/2022 5:00:00 [...] atelectasis. Electronically signed: YOLANDA GUTIERREZ. Transcribed by: [email or web address], User Resident: Electronically Signed by: YOLANDA GUTIERREZ @ 01/06/2022 09:50 AM Normal [facility] Comment on above: Order Comment: Evalu ate for Atelectasis BASIC METABOLIC PANELon 06- Calcium [Mass/Vol] 9.0 mg/dL Normal 8.6-10.3 [facility] Comment on above: Order Comment: Check Chest Tube Position Performed By: #### 0 0071, 04848, 80078 ####[facility] [place] [address], [place] Chloride [Moles/Vol] 101 mmol/L Normal 98-107 [facility] Comment on above: Order Comment: Check Chest Tube Position Performed By: #### 0 0071, 64493, 38492 ####[facility] [place] [address], [place] CO2 [Moles/Vol] 28 mmol/L Normal 21-31 [facility] Comment on above: Order Comment: Check Chest Tube Position Performed By: #### 0 0071, 50238, 70803 ####[facility] [place] [address], [place] Creatinine [Mass/Vol] 0.79 mg/dL Normal 0.70-1.30 [facility] Comment on above: Order Comment: Check Chest Tube Position Performed By: #### 0 0071, 79797, 74540 ####[facility] [place] [address], [place] GFR/1.73 sq M.predicted among blacks MDRD (S/P/Bld) [Vol rate/Area] mL/min/{1.73_m2} Normal >60 [facility] Comment on above: Order Comment: Check Chest Tube Position Performed By: #### 0 0071, 20579, 25383 ####[facility] [place] [address], [place] GFR/1.73 sq M.predicted among non-blacks MDRD (S/P/Bld) [Vol rate/Area] mL/min/{1.73_m2} Normal >60 [facility] Comment on above: Order Comment: Check Chest Tube Position Performed By: #### 0 0071, 37961, 24034 ####[facility] [place] [address], [place] Potassium [Moles/Vol] 3.9 mmol/L Normal 3.5-5.1 [facility] Comment on above: Order Comment: Check Chest Tube Position Performed By: #### 0 0071, 22414, 87627 ####[facility] [place] [address], [facility] Sodium [Moles/Vol] 135 mmol/L Low 136-145 [facility] Comment on above: Order Comment: Check Chest Tube Position Performed By: #### 0 0071, 55194, 92859 ####[facility] [place] [address], [facility] Urea nitrogen [Mass/Vol] 9 mg/dL Normal 7-25 [facility] Comment on above: Order Comment: Check Chest Tube Position Performed By: #### 0 0071, 50249, 02290 ####[facility] [facility] CBC COMPLETE BLOOD COUNTon 0 01-05-2022 Erythrocyte distribution width (RBC) [Ratio] 13.1 % Normal 11.5-15.0 [facility] Comment on above: Order Comment: No: D o not add to previous draw Performed By: #### 5 0608 ####[facility] [facility] Hematocrit (Bld) [Volume fraction] 30.6 % Low 39.0-50.0 [facility] Comment on above: Order Comment: No: D o not add to previous draw Performed By: #### 5 0608 ####[facility] [place] [address], [facility] Hemoglobin (Bld) [Mass/Vol] 10.6 g/dL Low 13.0-17.0 [facility] Comment on above: Order Comment: No: D o not add to previous draw Performed By: #### 5 0608 ####[facility] [place] [address], [facility] MCH (RBC) [Entitic mass] 30.3 pg Normal 27.0-33.0 [facility] Comment on above: Order Comment: No: D o not add to previous draw Performed By: #### 5 0608 ####[facility] MCHC (RBC) [Mass/Vol] 34.6 g/dL Normal 32.0-35.0 [facility] Comment on above: Order Comment: No: D o not add to previous draw Performed By: #### 5 0608 ####[facility] MCV (RBC) [Entitic vol] 87.4 fL Normal 82.0-98.0 [facility] Comment on above: Order Comment: No: D o not add to previous draw Performed By: #### 5 0608 ####[place] [address] [address] Nucleated RBC/100 WBC (Bld) [Ratio] 0 % Normal 0-0 [facility] Comment on above: Order Comment: No: D o not add to previous draw Performed By: #### 5 0608 ####[facility] PLAT CNT 155 10*3/uL Normal 150-400 [facility] Comment on above: Order Comment: No: D o not add to previous draw Performed By: #### 5 0608 ####[facility] RBC (Bld) [#/Vol] 3.50 10*6/uL Low 4.20-5.70 [facility] Comment on above: Order Comment: No: D o not add to previous draw Performed By: #### 5 0608 ####[facility] WBC (Bld) [#/Vol] 13.63 10*3/uL High 4.00-10.60 [facility] Comment on above: Order Comment: No: D o not add to previous draw Performed By: #### 5 0608 ####[facility] [place] [address], [facility] MAGNESIUM BLOODon 01-05-2022 Magnesium [Mass/Vol] 2.0 mg/dL Normal 1.9-2.7 [facility] Comment on above: Order Comment: Check Chest Tube Position Performed By: #### 0 0071, 47737, 14085 ####[facility] [place] [address], [place] PHOSPHORUS BLOODon 2 Phosphate [Mass/Vol] 2.8 mg/dL Normal 2.5-5.0 [facility] Comment on above: Performed By: #### 0 0071, 73224, 01300 ####[facility] [place] [address], [facility] POC GLUCOSE LABon 01-05-2022 Glucose [Mass/Vol] 136 mg/dL High 70-100 [facility] Comment on above: Performed By: #### 8 5499 ####[facility] [place] [address], [place] Glucose [Mass/Vol] 157 mg/dL High 70-100 [facility] Comment on above: Performed By: #### 8 5499 ####[facility] [place] [address], [place] Glucose [Mass/Vol] 147 mg/dL High 70-100 [facility] Comment on above: Performed By: #### 8 5499 ####[facility] [place] [address], [place] Order Comment: Check Chest Tube Position Performed By: #### 0 0071, 13200, 02001 ####[facility] [place] [address], [place] Glucose [Mass/Vol] 151 mg/dL High 70-100 [facility] Comment on above: Performed By: #### 8 5499 ####[facility] [place] [address], [facility] PORTABLE CHEST 1 VIEWon 12-27 PORTABLE CHEST 1 VIEW [facility] Department of Radiology [address] [place] [address] Patient Name: OSWALD OCHOA : 1955 Sex: M Age: Race: White Pt. Location: [place] [address] Patient Status: I Ordered Date: 01/05/2022 12:20:00 [...] hours. Electronically signed: Nic Ramon. Transcribed by: [email or web address], User Resident: Electronically Signed by: NIC RAMON @ 01/05/2022 05:15 PM Normal [facility] Comment on above: Order Comment: evalu ate PORTABLE CHEST 1 VIEW [facility] Department of Radiology [address] [place] [id number] Patient Name: OSWALD OCHOA : 1955 Sex: M Age: Race: White Pt. Location: [place] [address] Patient Status: I Ordered Date: 01/05/2022 5:00:00 [...] appreciated. Electronically signed: Michelle Kc. Transcribed by: [email or web address], User Resident: Electronically Signed by: MICHELLE KC @ 01/05/2022 08:23 AM Normal [facility] Comment on above: Order Comment: evalu ate for Atelectasis APTTon 01-04-2022 aPTT Coag (Bld) [Time] 31.0 s Normal 25.0-35.0 [facility] Comment on above: Order Comment: evalu ate [...] THIS PURPOSE. Performed By: #### 5 6101, 02207 ####[facility] [facility] [place] [place] [address], [facility] ARTERIAL BLOOD GAS WITH ICAo n 01-04-2022 BASE EXCESS -5 mmol/L Low -2-3 [facility] Comment on above: Order Comment: Check Chest Tube Position, ON ARRIVAL TO CVU Performed By: #### 8 9407 ####[facility] [place] [address], [facility] DELIVERY SYSTEMS VENTILATOR Normal [facility] Comment on above: Order Comment: Check Chest Tube Position, ON ARRIVAL TO CVU Performed By: #### 8 6876 ####[facility] [place] [address], [facility] FIO2 40 % Normal [facility] Comment on above: Order Comment: Check Chest Tube Position, ON ARRIVAL TO CVU Performed By: #### 8 4511 ####[facility] [place] [address], [place] HCO3 (Bld) [Moles/Vol] 22 mmol/L Normal 21-28 [facility] Comment on above: Order Comment: Check Chest Tube Position, ON ARRIVAL TO CVU Performed By: #### 8 4511 ####[facility] [place] [address], [place] IONIZED CALCIUM ERROR Normal 1.13-1.32 [facility] Comment on above: Order Comment: Check Chest Tube Position, ON ARRIVAL TO CVU Performed By: #### 8 4511 ####[facility] [place] [address], [place] MIN VOLUME 11.7 Normal [facility] Comment on above: Order Comment: Check Chest Tube Position, ON ARRIVAL TO CVU Performed By: #### 8 4511 ####[facility] [place] [address], [place] MODALITY SPONT Normal [facility] Comment on above: Order Comment: Check Chest Tube Position, ON ARRIVAL TO CVU Performed By: #### 8 4511 ####[facility] [place] [address], [place] Oxygen (Bld) [Partial pressure] 116 mm[Hg] Critically high 83-108 [facility] Comment on above: Order Comment: Check Chest Tube Position, ON ARRIVAL TO CVU Performed By: #### 8 4511 ####[facility] [place] [address], [place] Oxygen saturation in Blood 96.7 % Normal 94.0-97.0 [facility] Comment on above: Order Comment: Check Chest Tube Position, ON ARRIVAL TO CVU Performed By: #### 8 4511 ####[facility] [place] [address], [place] PCO2 45 mmHg Normal 35-45 [facility] Comment on above: Order Comment: Check Chest Tube Position, ON ARRIVAL TO CVU Performed By: #### 8 4511 ####[facility] [place] [address], [facility] PEEP 8.0 CMH20 Normal [facility] Comment on above: Order Comment: Check Chest Tube Position, ON ARRIVAL TO CVU Performed By: #### 8 4511 ####[facility] [place] [address], [facility] pH (Bld) 7.29 [pH] Low 7.35-7.45 [facility] Comment on above: Order Comment: Check Chest Tube Position, ON ARRIVAL TO CVU Performed By: #### 8 4511 ####[facility] [place] [address], [facility] PRESSURE SUPPORT 5 Normal [facility] Comment on above: Order Comment: Check Chest Tube Position, ON ARRIVAL TO CVU Performed By: #### 8 4511 ####[facility] [place] [address], [facility] BASIC METABOLIC PANELon 06-0 -2021 Calcium [Mass/Vol] 8.5 mg/dL Low 8.6-10.3 [facility] Comment on above: Order Comment: post thoracotomy Performed By: #### 4 999, 96661, 48538 ####[facility] [place] [address], [facility] Chloride [Moles/Vol] 107 mmol/L Normal 98-107 [facility] Comment on above: Order Comment: post thoracotomy Performed By: #### 4 999, 51963, 78957 ####[facility] [place] [address], [place] CO2 [Moles/Vol] 25 mmol/L Normal 21-31 [facility] Comment on above: Order Comment: post thoracotomy Performed By: #### 4 999, 23746, 33394 ####[facility] [place] [address], [facility] Creatinine [Mass/Vol] 0.96 mg/dL Normal 0.70-1.30 [facility] Comment on above: Order Comment: post thoracotomy Performed By: #### 4 999, 36695, 63019 ####[facility] [place] [address], [place] GFR/1.73 sq M.predicted among blacks MDRD (S/P/Bld) [Vol rate/Area] mL/min/{1.73_m2} Normal >60 [facility] Comment on above: Order Comment: post thoracotomy Performed By: #### 4 999, 02120, 98971 ####[facility] [place] [address], [place] GFR/1.73 sq M.predicted among non-blacks MDRD (S/P/Bld) [Vol rate/Area] mL/min/{1.73_m2} Normal >60 [facility] Comment on above: Order Comment: post thoracotomy Performed By: #### 4 999, 49197, 48051 ####[facility] [place] [address], [facility] Glucose [Mass/Vol] 172 mg/dL High 70-100 [facility] Comment on above: Order Comment: post thoracotomy Performed By: #### 4 999, 80704, 65569 ####[facility] [place] [address], [place] Potassium [Moles/Vol] 4.1 mmol/L Normal 3.5-5.1 [facility] Comment on above: Order Comment: post thoracotomy Performed By: #### 4 999, 31219, 72132 ####[facility] [place] [address], [place] Sodium [Moles/Vol] 139 mmol/L Normal 136-145 [facility] Comment on above: Order Comment: post thoracotomy Performed By: #### 4 999, 35581, 17740 ####[facility] [facility].[address] Urea nitrogen [Mass/Vol] 10 mg/dL Normal 7-25 [facility] Comment on above: Order Comment: post thoracotomy Performed By: #### 4 1000, 81001, 20308 ####[facility] [facility].[address] CBC COMPLETE BLOOD COUNTon 0 - Erythrocyte distribution width (RBC) [Ratio] 12.7 % Normal 11.5-15.0 [facility] Comment on above: Order Comment: No: D o not add to previous drawNurse draw per rn clare Performed By: #### 5 0608 ####[facility] Hematocrit (Bld) [Volume fraction] 30.5 % Low 39.0-50.0 [facility] Comment on above: Order Comment: No: D o not add to previous drawNurse draw per rn clare Performed By: #### 5 0608 ####[facility] [facility].[address] Hemoglobin (Bld) [Mass/Vol] 10.6 g/dL Low 13.0-17.0 [facility] Comment on above: Order Comment: No: D o not add to previous drawNurse draw per rn clare Performed By: #### 5 0608 ####[facility] [facility] [place] [place] [address], [facility] MCH (RBC) [Entitic mass] 30.1 pg Normal 27.0-33.0 [facility] Comment on above: Order Comment: No: D o not add to previous drawNurse draw per rn clare Performed By: #### 5 0608 ####[facility] [facility] [place] [place] [address], [facility] MCHC (RBC) [Mass/Vol] 34.8 g/dL Normal 32.0-35.0 [facility] Comment on above: Order Comment: No: D o not add to previous drawNurse draw per rn clare Performed By: #### 5 0608 ####[facility] [place] [address], [facility] MCV (RBC) [Entitic vol] 86.6 fL Normal 82.0-98.0 [facility] Comment on above: Order Comment: No: D o not add to previous drawNurse draw per rn clare Performed By: #### 5 0608 ####[facility] [place] [address], [facility] Nucleated RBC/100 WBC (Bld) [Ratio] 0 % Normal 0-0 [facility] Comment on above: Order Comment: No: D o not add to previous drawNurse draw per rn lcare Performed By: #### 5 0608 ####[facility] [place] [address], [facility] PLAT CNT 149 10*3/uL Low 150-400 [facility] Comment on above: Order Comment: No: D o not add to previous drawNurse draw per rn clare Performed By: #### 5 0608 ####[facility] [place] [address], [facility] RBC (Bld) [#/Vol] 3.52 10*6/uL Low 4.20-5.70 [facility] Comment on above: Order Comment: No: D o not add to previous drawNurse draw per rn clare Performed By: #### 5 0608 ####[facility] [place] [address], [facility] WBC (Bld) [#/Vol] 11.45 10*3/uL High 4.00-10.60 [facility] Comment on above: Order Comment: No: D o not add to previous drawNurse draw per rn clare Performed By: #### 5 0608 ####[facility] [place] [address], [facility] LACTATE BLOODon 01-04-2022 Lactate [Moles/Vol] 2.0 mmol/L Normal .5-2.2 [facility] Comment on above: Order Comment: Check Chest Tube Position Performed By: #### 1 0054 ####[place] [address] [facility] [place] [place] [address], [facility] MAGNESIUM BLOODon 01-04-2022 Magnesium [Mass/Vol] 2.4 mg/dL Normal 1.9-2.7 [facility] Comment on above: Order Comment: post thoracotomy Performed By: #### 4 1000, [id number], 89936 ####[place] [address] [facility].[address] MIXED VENOUS BLOOD GAS W/MECHANIC DRIVER Xon 01-04-2022 BASE EXCESS -1 mmol/L Normal [facility] Comment on above: Performed By: #### 7 0072 ####[address] COHB 1 % Normal [facility] Comment on above: Performed By: #### 7 0072 ####[place] [address] [facility].[address] DELIVERY SYSTEMS NASAL CANNULA Normal [facility] Comment on above: Performed By: #### 7 0072 ####[place] [address] [facility].[address] HCO3 (Bld) [Moles/Vol] 26 mmol/L Normal [facility] Comment on above: Performed By: #### 7 0072 ####[address] [place] [address], [facility] LPM 3 Normal [facility] Comment on above: Performed By: #### 7 0072 ####[address] [place] [address], [facility] METHB 0 % Normal [facility] Comment on above: Performed By: #### 7 0072 ####[facility] Oxygen (Bld) [Partial pressure] 41 mm[Hg] Normal 35-45 [facility] Comment on above: Performed By: #### 7 0072 ####[facility] Oxygen saturation in Blood 67.6 % Normal 65.0-75.0 [facility] Comment on above: Performed By: #### 7 0072 ####[facility] PCO2 51 mmHg High 40-50 [facility] Comment on above: Performed By: #### 7 0072 ####[facility] pH (Bld) 7.32 [pH] Normal 7.31-7.41 [facility] Comment on above: Performed By: #### 7 0072 ####[facility] [facility].[address] THB 11.0 g/dL Normal [facility] Comment on above: Performed By: #### 7 0072 ####[facility] [facility].[address] Operative Reporton 2 Operative Report MR#: [id number] I [facility] Pt. Name: Oswald Ochoa Room #: [id number] [id number] Discharge Date: Birthdate: 1955 OPERATIVE REPORT DATE [...] saphenous vein. 3. Interpretation of transesophageal echocardiogram. RED HAT ENGINEER: Pedro Luis Gill. ANESTHESIA: General with endotracheal [...] graft. The vein graft anastomosed in a [id number] fashion to the obtuse marginal 2 branch [...] w (more content not included)... Normal [facility] PHOSPHORUS BLOODon 2 Phosphate [Mass/Vol] 2.9 mg/dL Normal 2.5-5.0 [facility] Comment on above: Order Comment: post thoracotomy Performed By: #### 4 1000, 04780, 44892 ####[facility] POC GLUCOSE LABon 01-04-2022 Glucose [Mass/Vol] 130 mg/dL High 70-100 [facility] Comment on above: Performed By: #### 8 5499 ####[facility] [place] [address], [place] Glucose [Mass/Vol] 118 mg/dL High 70-100 [facility] Comment on above: Performed By: #### 8 5499 ####[facility] [place] [address], [place] Glucose [Mass/Vol] 101 mg/dL High 70-100 [facility] Comment on above: Performed By: #### 8 5499 ####[facility] [place] [address], [place] Glucose [Mass/Vol] 96 mg/dL Normal 70-100 [facility] Comment on above: Performed By: #### 8 5499 ####[facility] [place] [address], [place] Glucose [Mass/Vol] 76 mg/dL Normal 70-100 [facility] Comment on above: Performed By: #### 8 5499 ####[facility] [place] [address], [place] Glucose [Mass/Vol] 93 mg/dL Normal 70-100 [facility] Comment on above: Performed By: #### 8 5499 ####[facility] [place] [address], [place] Glucose [Mass/Vol] 130 mg/dL High 70-100 [facility] Comment on above: Performed By: #### 8 5499 ####[facility] [place] [address], [place] Glucose [Mass/Vol] 130 mg/dL High 70-100 [facility] Comment on above: Performed By: #### 8 5499 ####[facility] [place] [address], [place] Glucose [Mass/Vol] 147 mg/dL High 70-100 [facility] Comment on above: Performed By: #### 8 5499 ####[facility] [place] [address], [place] Glucose [Mass/Vol] 175 mg/dL High 70-100 [facility] Comment on above: Performed By: #### 8 5499 ####[facility] [place] [address], [place] Glucose [Mass/Vol] 190 mg/dL High 70-100 [facility] Comment on above: Performed By: #### 8 5499 ####[facility] [place] [address], [place] Glucose [Mass/Vol] 207 mg/dL High 70-100 [facility] Comment on above: Performed By: #### 8 5499 ####[facility] [place] [address], [place] Glucose [Mass/Vol] 200 mg/dL High 70-100 [facility] Comment on above: Performed By: #### 8 5499 ####[facility] [facility] [place] [address], [place] PORTABLE CHEST 1 VIEW PORTABLE CHEST 1 VIEW [facility] Department of Radiology [address] [place] [id number] Patient Name: OSWALD OCHOA : 1955 Sex: M Age: Race: White Pt. Location: [place] [address] Patient Status: I Ordered Date: 01/04/2022 1:00:00 [...] January 04, 2022. 0643 hours. FINDINGS: The [place]-Perry catheter has been withdrawn leaving a right jugular vein sheath with its tip in the SVC. Sternotomy wires and cardiomegaly remain. Pleural effusion suggested in the left costophrenic angle linear atelectasis over both hemidiaphragms. Perihilar congestive changes persist. No pneumothorax. IMPRESSION: No pneumothorax. No interval change in lung cunningham. Electronically signed: Michelle Kc. Transcribed by: [email or web address], User Resident: Electronically Signed by: MICHELLE KC @ 01/04/2022 01:25 PM Normal [facility] Comment on above: Order Comment: Pneum othorax PORTABLE CHEST 1 VIEW [facility] Department of Radiology [address] [place] [address] Patient Name: OSWALD OCHOA : 1955 Sex: M Age: Race: White Pt. Location: [place] [address] Patient Status: I Ordered Date: 01/04/2022 7:00:00 [...] tube and NG tube have been removed. [place]-Perry catheter remains with its tip in the right main pulmonary artery. Sternotomy wires with mild cardiomegaly remain. Haziness in the left costophrenic angle suggests effusion and lower lobe consolidation. No pneumothorax identified. IMPRESSION: Left pleural effusion and lower lobe consolidation. Electronically signed: Michelle Kc. Transcribed by: [email or web address], User Resident: Electronically Signed by: MICHELLE KC @ 01/04/2022 08:12 AM Normal [facility] Comment on above: Order Comment: Check Chest Tube Position PROTHROMBIN TIMEon 2 INR Coag (PPP) [Relative time] 1.24 {INR} High 0.91-1.16 [facility] Comment on above: Order Comment: evalu ate [...] CHEST 1995;[id number]. Performed By: #### 5 6101, 22857 ####[facility] PT Coag (PPP) [Time] 15.5 s High 12.3-14.8 [facility] Comment on above: Order Comment: evalu ate Result Comment: ALL RESULTS MUST BE INTERPRETED WITH RESPECT TO BLOOD DRAWING ARTIFACT OR DILUTION ERROR OF ANTICOAGULANT AT THE TIME OF SAMPLING. Performed By: #### 5 6101, 04768 ####[facility] *MRSA/MSSA DNA NASALon 01-03 *MRSA/MSSA DNA NASAL Clinical Report: (D) Specimen: NASAL SWAB Collected: 01/02/2022 22:13 Status: Final Last Updated: 01/03/2022 10:59 MSSA DNA (Final) Negative MRSA DNA (Final) Negative Normal [facility] Comment on above: Performed By: #### 3 1595 ####[facility] ACTIVATED CLOTTING TIMEon ACTIVATED CLOTTING TIME 0 sec Low 82-152 [facility] Comment on above: Performed By: #### 3 0739 ####[facility] ACTIVATED CLOTTING TIME 116 sec Normal 82-152 [facility] Comment on above: Performed By: #### 3 0739 ####[facility] [place] [address], [place] ACTIVATED CLOTTING TIME 426 sec High 82-152 [facility] Comment on above: Performed By: #### 3 0739 ####[facility] [place] [address], [place] ACTIVATED CLOTTING TIME 512 sec High 82-152 [facility] Comment on above: Performed By: #### 3 0739 ####[facility] [place] [address], [place] ACTIVATED CLOTTING TIME 622 sec High 82-152 [facility] Comment on above: Performed By: #### 3 0739 ####[facility] [place] [address], [place] ACTIVATED CLOTTING TIME 722 sec High 82-152 [facility] Comment on above: Performed By: #### 3 0739 ####[facility] [place] [address], [place] ACTIVATED CLOTTING TIME 855 sec High 82-152 [facility] Comment on above: Performed By: #### 3 0739 ####[facility] [place] [address], [place] ACTIVATED CLOTTING TIME 122 sec Normal 82-152 [facility] Comment on above: Performed By: #### 3 0739 ####[facility] [place] [address], [facility] APTTon 01-03-2022 aPTT Coag (Bld) [Time] 31.0 s Normal 25.0-35.0 [facility] Comment on above: Order Comment: No: D [...] THIS PURPOSE. Performed By: #### 5 7307, 46785 ####[facility] [facility].[address] aPTT Coag (Bld) [Time] 28.9 s Normal 25.0-35.0 [facility] Comment on above: Result [...] THIS PURPOSE. Performed By: #### 5 7307, 27473, 68326 ####[facility] [facility].[address] ARTERIAL BLOOD GAS WITH ICAo n 01-03-2022 BASE EXCESS -4 mmol/L Low -2-3 [facility] Comment on above: Order Comment: Check Chest Tube Position, ON ARRIVAL TO CVU Performed By: #### 8 2571 ####[facility] [facility].[address] DELIVERY SYSTEMS VENTILATOR Normal [facility] Comment on above: Order Comment: Check Chest Tube Position, ON ARRIVAL TO CVU Performed By: #### 8 3301 ####[facility] [facility].[address] FIO2 40 % Normal [facility] Comment on above: Order Comment: Check Chest Tube Position, ON ARRIVAL TO CVU Performed By: #### 8 7121 ####[facility] [facility] [place] [place] [address], [facility] HCO3 (Bld) [Moles/Vol] 22 mmol/L Normal 21-28 [facility] Comment on above: Order Comment: Check Chest Tube Position, ON ARRIVAL TO CVU Performed By: #### 8 8901 ####[facility] [place] [address], [place] IONIZED CALCIUM 1.20 mmol/L Normal 1.13-1.32 [facility] Comment on above: Order Comment: Check Chest Tube Position, ON ARRIVAL TO CVU Performed By: #### 8 4511 ####[facility] [place] [address], [place] MIN VOLUME 12.1 Normal [facility] Comment on above: Order Comment: Check Chest Tube Position, ON ARRIVAL TO CVU Performed By: #### 8 4511 ####[facility] [place] [address], [place] MODALITY SIMV Normal [facility] Comment on above: Order Comment: Check Chest Tube Position, ON ARRIVAL TO CVU Performed By: #### 8 4511 ####[facility] [place] [address], [place] Oxygen (Bld) [Partial pressure] 104 mm[Hg] Normal 83-108 [facility] Comment on above: Order Comment: Check Chest Tube Position, ON ARRIVAL TO CVU Performed By: #### 8 4511 ####[facility] [place] [address], [place] Oxygen saturation in Blood 96.5 % Normal 94.0-97.0 [facility] Comment on above: Order Comment: Check Chest Tube Position, ON ARRIVAL TO CVU Performed By: #### 8 4511 ####[facility] [place] [address], [place] PCO2 41 mmHg Normal 35-45 [facility] Comment on above: Order Comment: Check Chest Tube Position, ON ARRIVAL TO CVU Performed By: #### 8 4511 ####[facility] [place] [address], [place] PEEP 8.0 CMH20 Normal [facility] Comment on above: Order Comment: Check Chest Tube Position, ON ARRIVAL TO CVU Performed By: #### 8 4511 ####[facility] [place] [address], [facility] pH (Bld) 7.33 [pH] Low 7.35-7.45 [facility] Comment on above: Order Comment: Check Chest Tube Position, ON ARRIVAL TO CVU Performed By: #### 8 4511 ####[facility] [place] [address], [facility] PRESSURE SUPPORT 10 Normal [facility] Comment on above: Order Comment: Check Chest Tube Position, ON ARRIVAL TO CVU Performed By: #### 8 4511 ####[facility] [place] [address], [facility] Respiratory rate 10 /min Normal [facility] Comment on above: Order Comment: Check Chest Tube Position, ON ARRIVAL TO CVU Performed By: #### 8 4511 ####[facility] [place] [address], [facility] TIDAL VOLUME (VT) CC 600 Normal [facility] Comment on above: Order Comment: Check Chest Tube Position, ON ARRIVAL TO CVU Performed By: #### 8 4511 ####[facility] [place] [address], [facility] BASE EXCESS -4 mmol/L Low -2-3 [facility] Comment on above: Performed By: #### 8 4511 ####[facility] [place] [address], [facility] DELIVERY SYSTEMS mv Normal [facility] Comment on above: Performed By: #### 8 4511 ####[facility] [place] [address], [facility] FIO2 40 % Normal [facility] Comment on above: Performed By: #### 8 4511 ####[facility] [place] [address], [facility] HCO3 (Bld) [Moles/Vol] 23 mmol/L Normal 21-28 [facility] Comment on above: Performed By: #### 8 4511 ####[facility] [place] [address], [facility] IONIZED CALCIUM 1.20 mmol/L Normal 1.13-1.32 [facility] Comment on above: Performed By: #### 8 4511 ####[facility] [place] [address], [facility] MIN VOLUME 8.2 Normal [facility] Comment on above: Performed By: #### 8 4511 ####[facility] [place] [address], [facility] MODALITY SIMV Normal [facility] Comment on above: Performed By: #### 8 4511 ####[facility], [place] [id number] [place] [address] Oxygen (Bld) [Partial pressure] 94 mm[Hg] Normal 83-108 [facility] Comment on above: Performed By: #### 8 4511 ####[facility] [place] [address], [facility] Oxygen saturation in Blood 99 % Normal 94-100 [facility] Comment on above: Performed By: #### 8 4511 ####[facility] [place] [address], [facility] Oxygen saturation in Blood 96.3 % Normal 94.0-97.0 [facility] Comment on above: Performed By: #### 8 4511 ####[facility] [place] [address], [facility] PCO2 47 mmHg High 35-45 [facility] Comment on above: Performed By: #### 8 4511 ####[facility] [place] [address], [place] PEEP 8.0 CMH20 Normal [facility] Comment on above: Performed By: #### 8 4511 ####[facility] pH (Bld) 7.29 [pH] Low 7.35-7.45 [facility] Comment on above: Performed By: #### 8 4511 ####[facility] PRESSURE SUPPORT 10 Normal [facility] Comment on above: Performed By: #### 8 4511 ####[facility] Respiratory rate 14 /min Normal [facility] Comment on above: Performed By: #### 8 4511 ####[facility] TIDAL VOLUME (VT) CC 570 Normal [facility] Comment on above: Performed By: #### 8 4511 ####[facility] BASE EXCESS -6 mmol/L Low -2-3 [facility] Comment on above: Order Comment: evalu ate Performed By: #### 8 4511 ####[facility] DELIVERY SYSTEMS MV Normal [facility] Comment on above: Order Comment: evalu ate Performed By: #### 8 4511 ####[facility] [place] [address], [facility] FIO2 50 % Normal [facility] Comment on above: Order Comment: evalu ate Performed By: #### 8 4511 ####[facility] [place] [address], [facility] HCO3 (Bld) [Moles/Vol] 21 mmol/L Normal 21-28 [facility] Comment on above: Order Comment: evalu ate Performed By: #### 8 4511 ####[facility] [place] [address], [facility] IONIZED CALCIUM 1.14 mmol/L Normal 1.13-1.32 [facility] Comment on above: Order Comment: evalu ate Performed By: #### 8 4511 ####[facility] [place] [address], [facility] MIN VOLUME 8.9 Normal [facility] Comment on above: Order Comment: evalu ate Performed By: #### 8 4511 ####[facility] [place] [address], [facility] MODALITY SIMV Normal [facility] Comment on above: Order Comment: evalu ate Performed By: #### 8 4511 ####[facility] [place] [address], [facility] Oxygen (Bld) [Partial pressure] 133 mm[Hg] Critically high 83-108 [facility] Comment on above: Order Comment: evalu ate Performed By: #### 8 4511 ####[facility] [place] [address], [facility] Oxygen saturation in Blood 97.4 % High 94.0-97.0 [facility] Comment on above: Order Comment: evalu ate Performed By: #### 8 4511 ####[facility] [place] [address], [facility] PCO2 42 mmHg Normal 35-45 [facility] Comment on above: Order Comment: evalu ate Performed By: #### 8 4511 ####[facility] [place] [address], [place] PEEP 8.0 CMH20 Normal [facility] Comment on above: Order Comment: evalu ate Performed By: #### 8 4511 ####[facility] [place] [address], [facility] pH (Bld) 7.30 [pH] Low 7.35-7.45 [facility] Comment on above: Order Comment: evalu ate Performed By: #### 8 4511 ####[facility] [place] [address], [facility] PRESSURE SUPPORT 10 Normal [facility] Comment on above: Order Comment: evalu ate Performed By: #### 8 4511 ####[facility] Respiratory rate 14 /min Normal [facility] Comment on above: Order Comment: evalu ate Performed By: #### 8 4511 ####[facility] TIDAL VOLUME (VT) CC 570 Normal [facility] Comment on above: Order Comment: evalu ate Performed By: #### 8 4511 ####[facility] [facility] BASIC METABOLIC PANELon 06-0 8-2021 Calcium [Mass/Vol] 8.6 mg/dL Normal 8.6-10.3 [facility] Comment on above: Order Comment: No: D o not add to previous draw Performed By: #### 0 0071, 42364, 95111 ####[facility] [place] [address], [facility] Chloride [Moles/Vol] 108 mmol/L High 98-107 [facility] Comment on above: Order Comment: No: D o not add to previous draw Performed By: #### 0 0071, 82088, 47800 ####[facility] [place] [address], [facility] CO2 [Moles/Vol] 22 mmol/L Normal 21-31 [facility] Comment on above: Order Comment: No: D o not add to previous draw Performed By: #### 0 0071, 97788, 08843 ####[facility] [place] [address], [facility] Creatinine [Mass/Vol] 0.97 mg/dL Normal 0.70-1.30 [facility] Comment on above: Order Comment: No: D o not add to previous draw Performed By: #### 0 0071, 95680, 16605 ####[facility] [place] [address], [place] Glucose [Mass/Vol] 177 mg/dL High 70-100 [facility] Comment on above: Order Comment: No: D o not add to previous draw Performed By: #### 0 0071, 75680, 91742 ####[facility] [place] [address], [facility] Potassium [Moles/Vol] 4.8 mmol/L Normal 3.5-5.1 [facility] Comment on above: Order Comment: No: D o not add to previous draw Performed By: #### 0 0071, 95188, 69657 ####[facility] [place] [address], [facility] Urea nitrogen [Mass/Vol] 12 mg/dL Normal 7-25 [facility] Comment on above: Order Comment: No: D o not add to previous draw Performed By: #### 0 0071, 45159, 33989 ####[facility] [place] [address], [place] Calcium [Mass/Vol] 8.1 mg/dL Low 8.6-10.3 [facility] Comment on above: Performed By: #### 1 0, 67818 ####[facility] [place] [address], [place] Chloride [Moles/Vol] 107 mmol/L Normal 98-107 [facility] Comment on above: Performed By: #### 1 0, 41361 ####[facility] [place] [address], [facility] CO2 [Moles/Vol] 23 mmol/L Normal 21-31 [facility] Comment on above: Performed By: #### 1 69, 66482 ####[place] [address] [facility] [place] [address], [facility] Creatinine [Mass/Vol] 1.02 mg/dL Normal 0.70-1.30 [facility] Comment on above: Performed By: #### 1 69, 77592 ####[facility] [facility] [place] [address], [facility] GFR/1.73 sq M.predicted among blacks MDRD (S/P/Bld) [Vol rate/Area] mL/min/{1.73_m2} Normal >60 [facility] Comment on above: Order Comment: No: D o not add to previous draw Performed By: #### 0 0071, 16370, 32889 ####[facility] [facility] [place] [address], [facility] Performed By: #### 1 69, 72487 ####[place] [address] [facility] [place] [address], [facility] GFR/1.73 sq M.predicted among non-blacks MDRD (S/P/Bld) [Vol rate/Area] mL/min/{1.73_m2} Normal >60 [facility] Comment on above: Order Comment: No: D o not add to previous draw Performed By: #### 0 0071, 37888, 26889 ####[facility] [facility] [place] [address], [facility] Performed By: #### 1 69, 84477 ####[facility] [facility] [place] [address], [place] Glucose [Mass/Vol] 124 mg/dL High 70-100 [facility] Comment on above: Performed By: #### 1 69, 17325 ####[facility] Potassium [Moles/Vol] 3.8 mmol/L Normal 3.5-5.1 [facility] Comment on above: Performed By: #### 1 69, 36856 ####[facility] Sodium [Moles/Vol] 138 mmol/L Normal 136-145 [facility] Comment on above: Performed By: #### 1 69, 42715 ####[facility] [facility] Urea nitrogen [Mass/Vol] 11 mg/dL Normal 7-25 [facility] Comment on above: Performed By: #### 1 69, 80560 ####[facility] [facility].[address] Sodium [Moles/Vol] 139 mmol/L Normal 138-146 [facility] Comment on above: Order Comment: No: D o not add to previous draw Performed By: #### 0 0071, 71385, 58047 ####[facility] [facility].[address] Performed By: #### 3 0738 ####[facility] [facility].[address] CBC COMPLETE BLOOD COUNTon 0 - Erythrocyte distribution width (RBC) [Ratio] 12.7 % Normal 11.5-15.0 [facility] Comment on above: Order Comment: evalu ate Performed By: #### 5 0608 ####[facility] [facility] Hematocrit (Bld) [Volume fraction] 30.8 % Low 39.0-50.0 [facility] Comment on above: Order Comment: evalu ate Performed By: #### 5 0608 ####[facility] [facility].[address] Hemoglobin (Bld) [Mass/Vol] 10.9 g/dL Low 13.0-17.0 [facility] Comment on above: Order Comment: evalu ate Performed By: #### 5 0608 ####[facility] [facility] [place] [place] [address], [facility] MCH (RBC) [Entitic mass] 30.1 pg Normal 27.0-33.0 [facility] Comment on above: Order Comment: evalu ate Performed By: #### 5 0608 ####[facility] MCHC (RBC) [Mass/Vol] 35.4 g/dL High 32.0-35.0 [facility] Comment on above: Order Comment: evalu ate Performed By: #### 5 0608 ####[facility] MCV (RBC) [Entitic vol] 85.1 fL Normal 82.0-98.0 [facility] Comment on above: Order Comment: evalu ate Performed By: #### 5 0608 ####[facility] PLAT CNT 135 10*3/uL Low 150-400 [facility] Comment on above: Order Comment: evalu ate Performed By: #### 5 0608 ####[facility] [place] [address], [facility] RBC (Bld) [#/Vol] 3.62 10*6/uL Low 4.20-5.70 [facility] Comment on above: Order Comment: evalu ate Performed By: #### 5 0608 ####[facility] [place] [address], [facility] WBC (Bld) [#/Vol] 14.29 10*3/uL High 4.00-10.60 [facility] Comment on above: Order Comment: evalu ate Performed By: #### 5 0608 ####[facility] Erythrocyte distribution width (RBC) [Ratio] 12.6 % Normal 11.5-15.0 [facility] Comment on above: Performed By: #### 5 0608 ####[facility] [facility].[address] Hematocrit (Bld) [Volume fraction] 28.9 % Low 39.0-50.0 [facility] Comment on above: Performed By: #### 5 0608 ####[address] Hemoglobin (Bld) [Mass/Vol] 10.3 g/dL Low 13.0-17.0 [facility] Comment on above: Performed By: #### 5 0608 ####[facility] [facility].[address] MCH (RBC) [Entitic mass] 30.3 pg Normal 27.0-33.0 [facility] Comment on above: Performed By: #### 5 0608 ####[facility] [facility].[address] MCHC (RBC) [Mass/Vol] 35.6 g/dL High 32.0-35.0 [facility] Comment on above: Performed By: #### 5 0608 ####[facility] [facility].[address] MCV (RBC) [Entitic vol] 85.0 fL Normal 82.0-98.0 [facility] Comment on above: Performed By: #### 5 0608 ####[place] [address] [facility].[address] Nucleated RBC/100 WBC (Bld) [Ratio] 0 % Normal 0-0 [facility] Comment on above: Order Comment: evalu ate Performed By: #### 5 0608 ####[facility] [place] [address], [facility] PLAT CNT 127 10*3/uL Low 150-400 [facility] Comment on above: Performed By: #### 5 0608 ####[facility] RBC (Bld) [#/Vol] 3.40 10*6/uL Low 4.20-5.70 [facility] Comment on above: Performed By: #### 5 0608 ####[facility] [place] [address], [facility] WBC (Bld) [#/Vol] 13.69 10*3/uL High 4.00-10.60 [facility] Comment on above: Performed By: #### 5 0608 ####[facility] FIBRINOGENon 01-03-2022 FIBRINOGEN 168 mg/dL Normal 150-425 [facility] Comment on above: Performed By: #### 5 7307, 83787, 88416 ####[facility] [facility].[address] LACTATE BLOODon 01-03-2022 Lactate [Moles/Vol] 1.4 mmol/L Normal .5-2.2 [facility] Comment on above: Order Comment: No: D o not add to previous draw Performed By: #### 1 0054 ####[facility] [place] [address], [facility] MAGNESIUM BLOODon 01-03-2022 Magnesium [Mass/Vol] 2.4 mg/dL Normal 1.9-2.7 [facility] Comment on above: Order Comment: No: D o not add to previous draw Performed By: #### 0 0071, 55772, 59476 ####[facility] [facility] Magnesium [Mass/Vol] 2.9 mg/dL High 1.9-2.7 [facility] Comment on above: Performed By: #### 1 0070, 96577 ####[facility] [facility] PERFUSION BLOOD PANELon 06-0 -2021 BASE EXCESS -4.0 mmol/L Low -2.0-3.0 [facility] Comment on above: Performed By: #### 3 0738 ####[facility] [facility] Glucose [Mass/Vol] 129 mg/dL High 70-105 [facility] Comment on above: Performed By: #### 3 0738 ####[facility] [facility] Hematocrit (Bld) [Volume fraction] 29 % Low 38-51 [facility] Comment on above: Performed By: #### 3 0738 ####[facility] [facility] Hemoglobin (Bld) [Mass/Vol] 9.9 g/dL Low 12.0-17.0 [facility] Comment on above: Performed By: #### 3 0738 ####[facility] [facility].[address] IONIZED CALCIUM 1.22 mmol/L Normal 1.12-1.32 [facility] Comment on above: Performed By: #### 3 0738 ####[facility] Oxygen (Bld) [Partial pressure] 115.0 mm[Hg] High 80.0-105.0 [facility] Comment on above: Performed By: #### 3 0738 ####[facility] [place] [address], [facility] PCO2 46.3 mmHg High 35.0-45.0 [facility] Comment on above: Performed By: #### 3 0738 ####[facility] [place] [address], [facility] pH (Bld) 7.29 [pH] Low 7.35-7.45 [facility] Comment on above: Performed By: #### 3 0738 ####[facility] [place] [address], [facility] Potassium [Moles/Vol] 3.8 mmol/L Normal 3.5-4.9 [facility] Comment on above: Performed By: #### 3 0738 ####[facility] [place] [address], [facility] Sodium [Moles/Vol] 141 mmol/L Normal 138-146 [facility] Comment on above: Performed By: #### 3 0738 ####[facility] [place] [address], [facility] BASE EXCESS -3.0 mmol/L Low -2.0-3.0 [facility] Comment on above: Performed By: #### 3 0738 ####[facility] [place] [address], [facility] Glucose [Mass/Vol] 120 mg/dL High 70-105 [facility] Comment on above: Performed By: #### 3 0738 ####[facility] [place] [address], [facility] Hematocrit (Bld) [Volume fraction] 27 % Low 38-51 [facility] Comment on above: Performed By: #### 3 0738 ####[facility] [place] [address], [facility] Hemoglobin (Bld) [Mass/Vol] 9.2 g/dL Low 12.0-17.0 [facility] Comment on above: Performed By: #### 3 0738 ####[facility] [place] [address], [facility] IONIZED CALCIUM 1.27 mmol/L Normal 1.12-1.32 [facility] Comment on above: Performed By: #### 3 0738 ####[facility] [place] [address], [facility] Oxygen (Bld) [Partial pressure] 215.0 mm[Hg] High 80.0-105.0 [facility] Comment on above: Performed By: #### 3 0738 ####[facility] [place] [address], [facility] PCO2 44.6 mmHg Normal 35.0-45.0 [facility] Comment on above: Performed By: #### 3 0738 ####[facility] [place] [address], [facility] pH (Bld) 7.32 [pH] Low 7.35-7.45 [facility] Comment on above: Performed By: #### 3 0738 ####[facility] [place] [address], [facility] Potassium [Moles/Vol] 3.9 mmol/L Normal 3.5-4.9 [facility] Comment on above: Performed By: #### 3 0738 ####[facility] [place] [address], [place] Sodium [Moles/Vol] 141 mmol/L Normal 138-146 [facility] Comment on above: Performed By: #### 3 0738 ####[facility] [place] [address], [facility] BASE EXCESS 1.0 mmol/L Normal -2.0-3.0 [facility] Comment on above: Performed By: #### 3 0738 ####[facility] Glucose [Mass/Vol] 125 mg/dL High 70-105 [facility] Comment on above: Performed By: #### 3 0738 ####[facility] [facility].[address] Hematocrit (Bld) [Volume fraction] 28 % Low 38-51 [facility] Comment on above: Performed By: #### 3 0738 ####[facility] [facility].[address] Hemoglobin (Bld) [Mass/Vol] 9.5 g/dL Low 12.0-17.0 [facility] Comment on above: Performed By: #### 3 0738 ####[facility] [facility].[address] IONIZED CALCIUM 1.73 mmol/L Critically high 1.12-1.32 [facility] Comment on above: Performed By: #### 3 0738 ####[facility] [facility].[address] Oxygen (Bld) [Partial pressure] 392.0 mm[Hg] High 80.0-105.0 [facility] Comment on above: Performed By: #### 3 0738 ####[facility] [facility].[address] PCO2 42.7 mmHg Normal 35.0-45.0 [facility] Comment on above: Performed By: #### 3 0738 ####[facility] [facility].[address] pH (Bld) 7.39 [pH] Normal 7.35-7.45 [facility] Comment on above: Performed By: #### 3 0738 ####[facility] [place] [address], [facility] Potassium [Moles/Vol] 4.4 mmol/L Normal 3.5-4.9 [facility] Comment on above: Performed By: #### 3 0738 ####[facility] [place] [address], [facility] Sodium [Moles/Vol] 137 mmol/L Low 138-146 [facility] Comment on above: Performed By: #### 3 0738 ####[facility] [place] [address], [facility] BASE EXCESS 2.0 mmol/L Normal -2.0-3.0 [facility] Comment on above: Performed By: #### 3 0738 ####[facility] [place] [address], [facility] Glucose [Mass/Vol] 124 mg/dL High 70-105 [facility] Comment on above: Performed By: #### 3 0738 ####[facility] [place] [address], [facility] Hematocrit (Bld) [Volume fraction] 30 % Low 38-51 [facility] Comment on above: Performed By: #### 3 0738 ####[facility] [place] [address], [facility] Hemoglobin (Bld) [Mass/Vol] 10.2 g/dL Low 12.0-17.0 [facility] Comment on above: Performed By: #### 3 0738 ####[facility] [id number], [facility] IONIZED CALCIUM 1.14 mmol/L Normal 1.12-1.32 [facility] Comment on above: Performed By: #### 3 0738 ####[facility] [id number], [facility] Oxygen (Bld) [Partial pressure] 333.0 mm[Hg] High 80.0-105.0 [facility] Comment on above: Performed By: #### 3 0738 ####[facility] [place] [address], [facility] PCO2 41.5 mmHg Normal 35.0-45.0 [facility] Comment on above: Performed By: #### 3 0738 ####[facility] [place] [address], [facility] pH (Bld) 7.41 [pH] Normal 7.35-7.45 [facility] Comment on above: Performed By: #### 3 0738 ####[facility] [place] [address], [facility] Potassium [Moles/Vol] 4.3 mmol/L Normal 3.5-4.9 [facility] Comment on above: Performed By: #### 3 0738 ####[facility] [place] [address], [facility] Sodium [Moles/Vol] 138 mmol/L Normal 138-146 [facility] Comment on above: Performed By: #### 3 0738 ####[facility] [place] [address], [facility] BASE EXCESS 1.0 mmol/L Normal -2.0-3.0 [facility] Comment on above: Performed By: #### 3 0738 ####[facility] [place] [address], [facility] Glucose [Mass/Vol] 127 mg/dL High 70-105 [facility] Comment on above: Performed By: #### 3 0738 ####[facility] [place] [address], [facility] Hematocrit (Bld) [Volume fraction] 31 % Low 38-51 [facility] Comment on above: Performed By: #### 3 0738 ####[facility] Hemoglobin (Bld) [Mass/Vol] 10.5 g/dL Low 12.0-17.0 [facility] Comment on above: Performed By: #### 3 0738 ####[place] [address] [facility].[address] IONIZED CALCIUM 1.09 mmol/L Low 1.12-1.32 [facility] Comment on above: Performed By: #### 3 0738 ####[place] [address] [facility].[address] Oxygen (Bld) [Partial pressure] 351.0 mm[Hg] High 80.0-105.0 [facility] Comment on above: Performed By: #### 3 0738 ####[address] PCO2 38.6 mmHg Normal 35.0-45.0 [facility] Comment on above: Performed By: #### 3 0738 ####[address] pH (Bld) 7.43 [pH] Normal 7.35-7.45 [facility] Comment on above: Performed By: #### 3 0738 ####[place] [address] Potassium [Moles/Vol] 4.4 mmol/L Normal 3.5-4.9 [facility] Comment on above: Performed By: #### 3 0738 ####[place] [address] [facility] [place] [place] [address], [facility] Sodium [Moles/Vol] 138 mmol/L Normal 138-146 [facility] Comment on above: Performed By: #### 3 0738 ####[address] [place] [address], [facility] BASE EXCESS 4.0 mmol/L High -2.0-3.0 [facility] Comment on above: Performed By: #### 3 0738 ####[facility] [place] [address], [facility] Glucose [Mass/Vol] 117 mg/dL High 70-105 [facility] Comment on above: Performed By: #### 3 0738 ####[facility] [place] [address], [facility] Hematocrit (Bld) [Volume fraction] 29 % Low 38-51 [facility] Comment on above: Performed By: #### 3 0738 ####[facility] [place] [address], [facility] Hemoglobin (Bld) [Mass/Vol] 9.9 g/dL Low 12.0-17.0 [facility] Comment on above: Performed By: #### 3 0738 ####[facility] [place] [address], [facility] IONIZED CALCIUM 1.02 mmol/L Low 1.12-1.32 [facility] Comment on above: Performed By: #### 3 0738 ####[facility] [place] [address], [facility] Oxygen (Bld) [Partial pressure] 531.0 mm[Hg] High 80.0-105.0 [facility] Comment on above: Performed By: #### 3 0738 ####[facility] [facility] [place] [place] [address], [facility] PCO2 42.7 mmHg Normal 35.0-45.0 [facility] Comment on above: Performed By: #### 3 0738 ####[facility] [place] [address], [facility] pH (Bld) 7.43 [pH] Normal 7.35-7.45 [facility] Comment on above: Performed By: #### 3 0738 ####[facility] [place] [address], [facility] Potassium [Moles/Vol] 4.1 mmol/L Normal 3.5-4.9 [facility] Comment on above: Performed By: #### 3 0738 ####[facility] [place] [address], [facility] BASE EXCESS 0.0 mmol/L Normal -2.0-3.0 [facility] Comment on above: Performed By: #### 3 0738 ####[facility] [place] [address], [facility] Glucose [Mass/Vol] 108 mg/dL High 70-105 [facility] Comment on above: Performed By: #### 3 0738 ####[facility] [place] [address], [facility] Hematocrit (Bld) [Volume fraction] 27 % Low 38-51 [facility] Comment on above: Performed By: #### 3 0738 ####[facility] [place] [address], [facility] Hemoglobin (Bld) [Mass/Vol] 9.2 g/dL Low 12.0-17.0 [facility] Comment on above: Performed By: #### 3 0738 ####[facility] [place] [address], [facility] IONIZED CALCIUM 1.04 mmol/L Low 1.12-1.32 [facility] Comment on above: Performed By: #### 3 0738 ####[facility] [place] [address], [facility] Oxygen (Bld) [Partial pressure] 46.0 mm[Hg] Normal [facility] Comment on above: Performed By: #### 3 0738 ####[facility] [place] [address], [facility] PCO2 44.8 mmHg Normal 41.0-51.0 [facility] Comment on above: Performed By: #### 3 0738 ####[facility] [place] [address], [facility] pH (Bld) 7.36 [pH] Normal 7.31-7.41 [facility] Comment on above: Performed By: #### 3 0738 ####[facility] [place] [address], [facility] Potassium [Moles/Vol] 4.5 mmol/L Normal 3.5-4.9 [facility] Comment on above: Performed By: #### 3 0738 ####[facility] [place] [address], [place] Sodium [Moles/Vol] 140 mmol/L Normal 138-146 [facility] Comment on above: Performed By: #### 3 0738 ####[facility] [place] [address], [facility] BASE EXCESS -1.0 mmol/L Normal -2.0-3.0 [facility] Comment on above: Performed By: #### 3 0738 ####[facility] [place] [address], [facility] Glucose [Mass/Vol] 123 mg/dL High 70-105 [facility] Comment on above: Performed By: #### 3 0738 ####[facility] [place] [address], [facility] Hematocrit (Bld) [Volume fraction] 38 % Normal 38-51 [facility] Comment on above: Performed By: #### 3 0738 ####[facility] [place] [address], [facility] Hemoglobin (Bld) [Mass/Vol] 12.9 g/dL Normal 12.0-17.0 [facility] Comment on above: Performed By: #### 3 0738 ####[facility] [place] [address], [facility] IONIZED CALCIUM 1.27 mmol/L Normal 1.12-1.32 [facility] Comment on above: Performed By: #### 3 0738 ####[facility] [place] [address], [facility] Oxygen (Bld) [Partial pressure] 146.0 mm[Hg] High 80.0-105.0 [facility] Comment on above: Performed By: #### 3 0738 ####[facility] [place] [address], [facility] PCO2 47.8 mmHg High 35.0-45.0 [facility] Comment on above: Performed By: #### 3 0738 ####[facility] [place] [address], [facility] pH (Bld) 7.33 [pH] Low 7.35-7.45 [facility] Comment on above: Performed By: #### 3 0738 ####[facility] [place] [address], [facility] Potassium [Moles/Vol] 3.8 mmol/L Normal 3.5-4.9 [facility] Comment on above: Performed By: #### 3 0738 ####[facility] [place] [address], [place] Sodium [Moles/Vol] 141 mmol/L Normal 138-146 [facility] Comment on above: Performed By: #### 3 0738 ####[facility] [place] [address], [place] BASE EXCESS 0.0 mmol/L Normal -2.0-3.0 [facility] Comment on above: Performed By: #### 3 0738 ####[facility] Glucose [Mass/Vol] 130 mg/dL High 70-105 [facility] Comment on above: Performed By: #### 3 0738 ####[facility]3000 [facility].[address] Hematocrit (Bld) [Volume fraction] 42 % Normal 38-51 [facility] Comment on above: Performed By: #### 3 0738 ####[facility] [facility].[address] Hemoglobin (Bld) [Mass/Vol] 14.3 g/dL Normal 12.0-17.0 [facility] Comment on above: Performed By: #### 3 0738 ####[facility] [facility].[address] IONIZED CALCIUM 1.30 mmol/L Normal 1.12-1.32 [facility] Comment on above: Performed By: #### 3 0738 ####[facility] [facility].[address] Oxygen (Bld) [Partial pressure] 218.0 mm[Hg] High 80.0-105.0 [facility] Comment on above: Performed By: #### 3 0738 ####[facility] [facility].[address] PCO2 43.5 mmHg Normal 35.0-45.0 [facility] Comment on above: Performed By: #### 3 0738 ####[facility] [facility] [place] [place] [address], [facility] pH (Bld) 7.38 [pH] Normal 7.35-7.45 [facility] Comment on above: Performed By: #### 3 0738 ####[facility] [place] [address], [place] Potassium [Moles/Vol] 3.8 mmol/L Normal 3.5-4.9 [facility] Comment on above: Performed By: #### 3 0738 ####[facility] [place] [address], [place] Sodium [Moles/Vol] 141 mmol/L Normal 138-146 [facility] Comment on above: Performed By: #### 3 0738 ####[facility] [place] [address], [place] PHOSPHORUS BLOODon Phosphate [Mass/Vol] 3.4 mg/dL Normal 2.5-5.0 [facility] Comment on above: Order Comment: No: D o not add to previous draw Performed By: #### 0 0071, 71998, 47975 ####[facility] [place] [address], [place] POC GLUCOSE LABon 01-03-2022 Glucose [Mass/Vol] 156 mg/dL High 70-100 [facility] Comment on above: Performed By: #### 8 5499 ####[facility] [place] [address], [place] Glucose [Mass/Vol] 160 mg/dL High 70-100 [facility] Comment on above: Performed By: #### 8 5499 ####[facility] [place] [address], [place] Glucose [Mass/Vol] 146 mg/dL High 70-100 [facility] Comment on above: Performed By: #### 8 5499 ####[facility] [place] [address], [place] Glucose [Mass/Vol] 135 mg/dL High 70-100 [facility] Comment on above: Performed By: #### 8 5499 ####[facility] [address] Glucose [Mass/Vol] 136 mg/dL High 70-100 [facility] Comment on above: Performed By: #### 8 5499 ####[facility] [place], [place] [id number] [place] [address] PORTABLE CHEST 1 VIEWon PORTABLE CHEST 1 VIEW [facility] Department of Radiology [address] [place] [address] Patient Name: OSWALD OCHOA : 1955 Sex: M Age: Race: White Pt. Location: [place] [address] Patient Status: I Ordered Date: 01/03/2022 4:40:00 [...] AP(PA) view was obtained. COMPARISON: None FINDINGS: [place] catheter on the right tip in superior [...] in the left lower lobe Electronically signed: Tagn Pino. Transcribed by: [email or web address], User Resident: Electronically Signed by: TANG PINO @ 01/03/2022 06:07 PM Normal [facility] Comment on above: Order Comment: Check Chest Tube Position, ON ARRIVAL TO CVU PROTHROMBIN TIMEon 2 INR Coag (PPP) [Relative time] 1.28 {INR} High 0.91-1.16 [facility] Comment on above: Order Comment: No: D [...] CHEST 1995;108:231S-246S. Performed By: #### 5 7307, 85008 ####[facility] PT Coag (PPP) [Time] 15.9 s High 12.3-14.8 [facility] Comment on above: Order Comment: No: D o not add to previous draw Result Comment: ALL RESULTS MUST BE INTERPRETED WITH RESPECT TO BLOOD DRAWING ARTIFACT OR DILUTION ERROR OF ANTICOAGULANT AT THE TIME OF SAMPLING. Performed By: #### 5 7307, 27635 ####[facility] [facility].[address] INR Coag (PPP) [Relative time] 1.45 {INR} High 0.91-1.16 [facility] Comment on above: Result Comment: ACCC P [...] CHEST 1995;108:231S-246S. Performed By: #### 5 7307, 63384, 76209 ####[facility] [facility].[address] PT Coag (PPP) [Time] 17.5 s High 12.3-14.8 [facility] Comment on above: Result Comment: ALL RESULTS MUST BE INTERPRETED WITH RESPECT TO BLOOD DRAWING ARTIFACT OR DILUTION ERROR OF ANTICOAGULANT AT THE TIME OF SAMPLING. Performed By: #### 5 7307, 65209, 14013 ####[facility] [facility] [place] [place] [address], [facility] RBC'S 2 UNITSon 01-03-2022 CROSSMATCH INTERP 1 COMP Normal [facility] Comment on above: Performed By: #### 8 6002 ####[facility] [place] [address], [facility] CROSSMATCH INTERP 2 COMP Normal [facility] Comment on above: Performed By: #### 8 6002 ####[facility] [place] [address], [facility] PRODUCT CODE 1 E0685 Normal [facility] Comment on above: Performed By: #### 8 6002 ####[facility] [place] [address], [facility] PRODUCT CODE 2 E0336 Normal [facility] Comment on above: Performed By: #### 8 6002 ####[facility] [place] [address], [facility] PRODUCT STATUS 1 RE Normal [facility] Comment on above: Result Comment: Resu lt changed by IF on 01/03/2022 12:35. The previous value was XM. Result changed by IF on 01/03/2022 17:59. The previous value was IS. Result changed by IF on 01/06/2022 07:17. The previous value was XM. Performed By: #### 8 6002 ####[facility] [facility] [place] [address], [facility] PRODUCT STATUS 2 RE Normal [facility] Comment on above: Result Comment: Resu lt changed by IF on 01/03/2022 12:35. The previous value was XM. Result changed by IF on 01/03/2022 17:59. The previous value was IS. Result changed by IF on 01/06/2022 07:17. The previous value was XM. Performed By: #### 8 6002 ####[facility] [place] [address], [place] UNIT ABO 1 O Normal [facility] Comment on above: Performed By: #### 8 6002 ####[facility] [facility].[address] UNIT ABO 2 O Normal [facility] Comment on above: Performed By: #### 8 6002 ####[facility] [facility].[address] UNIT ID 1 [id number] Normal [facility] Comment on above: Performed By: #### 8 6002 ####[facility] [facility].[address] UNIT ID 2 [id number] Normal [facility] Comment on above: Performed By: #### 8 6002 ####[facility] [facility].[address] UNIT RH 1 Negative Normal [facility] Comment on above: Performed By: #### 8 6002 ####[facility] [facility].[address] UNIT RH 2 Negative Normal [facility] Comment on above: Performed By: #### 8 6002 ####[facility] [facility].[address] APTTon 01-02-2022 aPTT Coag (Bld) [Time] 32.1 s Normal 25.0-35.0 [facility] Comment on above: Order Comment: post thoracotomy [...] THIS PURPOSE. Performed By: #### 5 7307, 60586 ####[facility] [facility].[address] BASIC METABOLIC PANELon 06- Calcium [Mass/Vol] 9.5 mg/dL Normal 8.6-10.3 [facility] Comment on above: Order Comment: No: D o not add to previous draw Performed By: #### 1 0070, 82813, 16837, 47918 ####[facility] [place] [address], [facility] Chloride [Moles/Vol] 105 mmol/L Normal 98-107 [facility] Comment on above: Order Comment: No: D o not add to previous draw Performed By: #### 1 0070, 63753, 66796, 39601 ####[facility] [place] [address], [facility] CO2 [Moles/Vol] 24 mmol/L Normal 21-31 [facility] Comment on above: Order Comment: No: D o not add to previous draw Performed By: #### 1 0070, 53977, 25048, 72311 ####[facility] [place] [address], [facility] Creatinine [Mass/Vol] 0.93 mg/dL Normal 0.70-1.30 [facility] Comment on above: Order Comment: No: D o not add to previous draw Performed By: #### 1 0070, 01503, 80007, 54494 ####[facility] [place] [address], [facility] GFR/1.73 sq M.predicted among blacks MDRD (S/P/Bld) [Vol rate/Area] mL/min/{1.73_m2} Normal >60 [facility] Comment on above: Order Comment: No: D o not add to previous draw Performed By: #### 1 0070, 94114, 79485, 67036 ####[facility] [place] [address], [place] GFR/1.73 sq M.predicted among non-blacks MDRD (S/P/Bld) [Vol rate/Area] mL/min/{1.73_m2} Normal >60 [facility] Comment on above: Order Comment: No: D o not add to previous draw Performed By: #### 1 0070, 78295, 55487, 24818 ####[facility] [place] [address], [facility] Glucose [Mass/Vol] 127 mg/dL High 70-100 [facility] Comment on above: Order Comment: No: D o not add to previous draw Performed By: #### 1 0070, 10497, 25089, 00516 ####[facility] [place] [address], [facility] Potassium [Moles/Vol] 3.9 mmol/L Normal 3.5-5.1 [facility] Comment on above: Order Comment: No: D o not add to previous draw Performed By: #### 1 0070, 16466, 73329, 32447 ####[facility] [place] [address], [facility] Sodium [Moles/Vol] 138 mmol/L Normal 136-145 [facility] Comment on above: Order Comment: No: D o not add to previous draw Performed By: #### 1 0, 52063, 94511, 30297 ####[facility] [place] [address], [facility] Urea nitrogen [Mass/Vol] 13 mg/dL Normal 7-25 [facility] Comment on above: Order Comment: No: D o not add to previous draw Performed By: #### 1 0070, 45862, 49119, 78707 ####[facility] [place] [address], [place] CBC COMPLETE BLOOD COUNTon 0 01-02-2022 Erythrocyte distribution width (RBC) [Ratio] 12.8 % Normal 11.5-15.0 [facility] Comment on above: Order Comment: No: D o not add to previous draw Performed By: #### 5 0608 ####[facility] Hematocrit (Bld) [Volume fraction] 41.4 % Normal 39.0-50.0 [facility] Comment on above: Order Comment: No: D o not add to previous draw Performed By: #### 5 0608 ####[facility] [facility].[address] Hemoglobin (Bld) [Mass/Vol] 14.6 g/dL Normal 13.0-17.0 [facility] Comment on above: Order Comment: No: D o not add to previous draw Performed By: #### 5 0608 ####[address] MCH (RBC) [Entitic mass] 30.1 pg Normal 27.0-33.0 [facility] Comment on above: Order Comment: No: D o not add to previous draw Performed By: #### 5 0608 ####[facility] MCHC (RBC) [Mass/Vol] 35.3 g/dL High 32.0-35.0 [facility] Comment on above: Order Comment: No: D o not add to previous draw Performed By: #### 5 0608 ####[place] [address] [address] MCV (RBC) [Entitic vol] 85.4 fL Normal 82.0-98.0 [facility] Comment on above: Order Comment: No: D o not add to previous draw Performed By: #### 5 0608 ####[address] Nucleated RBC/100 WBC (Bld) [Ratio] 0 % Normal 0-0 [facility] Comment on above: Order Comment: No: D o not add to previous draw Performed By: #### 5 0608 ####[address] [place] [address], [place] PLAT CNT 218 10*3/uL Normal 150-400 [facility] Comment on above: Order Comment: No: D o not add to previous draw Performed By: #### 5 0608 ####[facility] RBC (Bld) [#/Vol] 4.85 10*6/uL Normal 4.20-5.70 [facility] Comment on above: Order Comment: No: D o not add to previous draw Performed By: #### 5 0608 ####[place] [address] [address] WBC (Bld) [#/Vol] 6.95 10*3/uL Normal 4.00-10.60 [facility] Comment on above: Order Comment: No: D o not add to previous draw Performed By: #### 5 0608 ####[facility] LIPID PROFILEon 01-02-2022 Cholesterol [Mass/Vol] 110 mg/dL Low 120-200 [facility] Comment on above: Order Comment: Check Chest Tube Position, ON ARRIVAL TO CVU Result Comment: CHOL ESTEROL REFERENCE RANGE: 20 YEARS AND OLDER CARDIOVASCULAR RISK Less than 200 mg/dl Low Risk 200 to 239 mg/dl Borderline Risk 240 mg/dl and greater High Risk Performed By: #### 4 6413 ####[facility] Cholesterol in HDL [Mass/Vol] 29 mg/dL Normal 23-92 [facility] Comment on above: Order Comment: Check Chest Tube Position, ON ARRIVAL TO CVU Result Comment: Slig ht variation in normal range could be due to gender and/or age. HDL CHOLESTEROL REFERENCE RANGE: 20 years and older Cardiovascular Risk > or =60 mg/dL Desirable 40 TO 59 mg/dL Low Risk <40 mg/dL High Risk Performed By: #### 4 6413 ####[facility] [place] [address], [facility] Cholesterol in LDL [Mass/Vol] 56 mg/dL Normal 0-130 [facility] Comment on above: Order Comment: Check Chest Tube Position, ON ARRIVAL TO CVU Result Comment: LDL IS A CALCULATION LDL IS ONLY VALID IF THE TRIG IS LESS THAN 400. Performed By: #### 4 6413 ####[facility] [place] [address], [facility] Cholesterol.total/ Cholesterol in HDL [Mass ratio] 3.8 {ratio} Normal .0-4.5 [facility] Comment on above: Order Comment: Check Chest Tube Position, ON ARRIVAL TO CVU Performed By: #### 4 6413 ####[facility] [place] [address], [facility] NON-HDL CHOLESTEROL 81 mg/dL Normal [facility] Comment on above: Order Comment: Check Chest Tube Position, ON ARRIVAL TO CVU Performed By: #### 4 6413 ####[facility] [place] [address], [facility] Triglyceride [Mass/Vol] 124 mg/dL Normal 40-149 [facility] Comment on above: Order Comment: Check Chest Tube Position, ON ARRIVAL TO CVU Result Comment: TRIG LYCERIDE REFERENCE RANGE: 20 YEARS AND OLDER CARDIOVASCULAR RISK LESS THAN 150 mg/dl LOW RISK 150 TO 199 mg/dl BORDERLINE RISK 200 mg/dl AND GREATER HIGH RISK Performed By: #### 4 6413 ####[facility] [place] [address], [facility] VLDL CHOL 25 mg/dL Normal 0-40 [facility] Comment on above: Order Comment: Check Chest Tube Position, ON ARRIVAL TO CVU Performed By: #### 4 6413 ####[facility] [place] [address], [facility] MAGNESIUM BLOODon 01-02-2022 Magnesium [Mass/Vol] 2.1 mg/dL Normal 1.9-2.7 [facility] Comment on above: Order Comment: No: D o not add to previous draw Performed By: #### 1 0070, 69350, 12473, 14245 ####[facility] [place] [address], [place] PHOSPHORUS BLOODon 2 Phosphate [Mass/Vol] 3.9 mg/dL Normal 2.5-5.0 [facility] Comment on above: Order Comment: No: D o not add to previous draw Performed By: #### 1 0070, 55691, 15232, 96946 ####[facility] [place] [address], [place] POC GLUCOSE LABon 01-02-2022 Glucose [Mass/Vol] 149 mg/dL High 70-100 [facility] Comment on above: Performed By: #### 8 5499 ####[facility] [place] [address], [place] Glucose [Mass/Vol] 129 mg/dL High 70-100 [facility] Comment on above: Performed By: #### 8 5499 ####[facility] [place] [address], [place] Glucose [Mass/Vol] 203 mg/dL High 70-100 [facility] Comment on above: Performed By: #### 8 5499 ####[facility] [place] [address], [place] Glucose [Mass/Vol] 139 mg/dL High 70-100 [facility] Comment on above: Performed By: #### 8 5499 ####[facility] [place] [address], [place] Glucose [Mass/Vol] 153 mg/dL High 70-100 [facility] Comment on above: Performed By: #### 8 5499 ####[facility] [place] [address], [place] POC SARS COV2 ANTIGEN NEGATI VEon 01-02-2022 POC SARS COV2 ANTIGEN NEG Negative Normal NEGATIVE [facility] Comment on above: Result Comment: Nega tive [...] antigen from SARS-CoV-2 in direct nasopharyngeal swab (MOSAIC TECHNICIAN) specimens from individuals who are suspected of [...] of Accreditation. Performed By: #### 3 2044 ####[address] PORTABLE CHEST 1 VIEWon PORTABLE CHEST 1 VIEW [facility] Department of Radiology [address] [place] [id number] Patient Name: OSWALD OCHOA : 1955 Sex: M Age: Race: White Pt. Location: [address] [place] [address] Patient Status: I Ordered Date: 01/02/2022 9:50:00 [...] unchanged Electronically signed: Tang Pino. Transcribed by: [email or web address], User Resident: Electronically Signed by: TANG PINO @ 01/02/2022 10:53 AM Normal [facility] Comment on above: Order Comment: post thoracotomy PROTHROMBIN TIMEon 2 INR Coag (PPP) [Relative time] 1.01 {INR} Normal 0.91-1.16 [facility] Comment on above: Order Comment: post thoracotomy [...] CHEST 1995;108:231S-246S. Performed By: #### 5 7307, 30563 ####[facility] PT Coag (PPP) [Time] 13.3 s Normal 12.3-14.8 [facility] Comment on above: Order Comment: post thoracotomy Result Comment: ALL RESULTS MUST BE INTERPRETED WITH RESPECT TO BLOOD DRAWING ARTIFACT OR DILUTION ERROR OF ANTICOAGULANT AT THE TIME OF SAMPLING. Performed By: #### 5 7307, 42680 ####[place] [address] [facility].[address] RBC'S 2 UNITSon 01-02-2022 CROSSMATCH INTERP 1 COMP Normal [facility] Comment on above: Performed By: #### 8 6002 ####[place] [address] [facility].[address] CROSSMATCH INTERP 2 COMP Normal [facility] Comment on above: Performed By: #### 8 6002 ####[place] [address] [facility].[address] PRODUCT CODE 1 E0336 Normal [facility] Comment on above: Performed By: #### 8 6002 ####[place] [address] [facility].[address] PRODUCT CODE 2 E0336 Normal [facility] Comment on above: Performed By: #### 8 6002 ####[address] PRODUCT STATUS 1 RE Normal [facility] Comment on above: Result Comment: Resu lt changed by IF on 01/03/2022 12:35. The previous value was XM. Result changed by IF on 01/03/2022 17:59. The previous value was IS. Result changed by IF on 01/06/2022 07:17. The previous value was XM. Performed By: #### 8 6002 ####[facility] [place] [address], [facility] PRODUCT STATUS 2 RE Normal [facility] Comment on above: Result Comment: Resu lt changed by IF on 01/03/2022 12:35. The previous value was XM. Result changed by IF on 01/03/2022 17:59. The previous value was IS. Result changed by IF on 01/06/2022 07:17. The previous value was XM. Performed By: #### 8 6002 ####[facility] [place] [address], [facility] UNIT ABO 1 O Normal [facility] Comment on above: Performed By: #### 8 6002 ####[facility] [place] [address], [place] UNIT ABO 2 O Normal [facility] Comment on above: Performed By: #### 8 6002 ####[facility] [place] [address], [facility] UNIT ID 1 [id number] Normal [facility] Comment on above: Performed By: #### 8 6002 ####[facility] [place] [address], [place] UNIT ID 2 [id number] Normal [facility] Comment on above: Performed By: #### 8 6002 ####[facility] [place] [address], [place] UNIT RH 1 Negative Normal [facility] Comment on above: Performed By: #### 8 6002 ####[facility] [facility] [place] [place] [address], [facility] UNIT RH 2 Negative Normal [facility] Comment on above: Performed By: #### 8 6002 ####[facility] [facility] [place] [place] [address], [facility] TROPONIN-Ion 01-02-2022 Troponin I.cardiac [Mass/Vol] 0.00 ng/mL Normal 0.00-0.04 [facility] Comment on above: Result Comment: REFE RENCE RANGES: 0.00 - 0.04 ng/ml NORMAL 0.05 - 0.50 ng/ml INDETERMINATE > 0.50 ng/ml CONSISTENT WITH AN M.I. Performed By: #### 1 0070, 58016, 46193, 83216 ####[facility] [facility] [place] [place] [address], [facility] TYPE AND SCREENon 01-02-2022 ABO INTERPRETATION O Normal [facility] Comment on above: Performed By: #### 6 2586 ####[facility] [facility] [place] [place] [address], [facility] RH INTERPRETATION Negative Normal [facility] Comment on above: Performed By: #### 6 2586 ####[facility] [facility] [place] [place] [address], [facility] URINALYSIS REFLEXon 01-03-20 22 Appearance (U) CLEAR Normal CLEAR [facility] Comment on above: Order Comment: No: D o not add to previous drawCriteria for reflexing a culture was not met. Please call the lab [id number] within 24 hours of collection time if culture is needed Performed By: #### 3 0965 ####[facility] [facility] [place] [place] [address], [facility] Bilirubin Ql (U) Negative Normal NEGATIVE [facility] Comment on above: Order Comment: No: D o not add to previous drawCriteria for reflexing a culture was not met. Please call the lab [id number] within 24 hours of collection time if culture is needed Performed By: #### 3 0965 ####[facility] [place] [address], [facility] Color (U) YELLOW Normal YELLOW [facility] Comment on above: Order Comment: No: D o not add to previous drawCriteria for reflexing a culture was not met. Please call the lab [id number] within 24 hours of collection time if culture is needed Performed By: #### 3 0965 ####[facility] [place] [address], [facility] EPIS NONE SEEN Normal FEW,OCC,NO NE SEEN [facility] Comment on above: Order Comment: No: D o not add to previous drawCriteria for reflexing a culture was not met. Please call the lab [id number] within 24 hours of collection time if culture is needed Performed By: #### 3 0965 ####[facility] [facility] [place] [address], [facility] Glucose Ql (U) Negative Normal NEGATIVE [facility] Comment on above: Order Comment: No: D o not add to previous drawCriteria for reflexing a culture was not met. Please call the lab [id number] within 24 hours of collection time if culture is needed Performed By: #### 3 0965 ####[facility] [place] [address], [place] Hemoglobin Ql (U) Negative Normal NEGATIVE [facility] Comment on above: Order Comment: No: D o not add to previous drawCriteria for reflexing a culture was not met. Please call the lab [id number] within 24 hours of collection time if culture is needed Performed By: #### 3 0965 ####[facility] [facility] [place] [address], [place] KETONE Negative Normal NEGATIVE [facility] Comment on above: Order Comment: No: D o not add to previous drawCriteria for reflexing a culture was not met. Please call the lab [id number] within 24 hours of collection time if culture is needed Performed By: #### 3 0965 ####[facility] [facility] [place] [place] [address], [facility] LEUK ASIF Negative Normal NEGATIVE [facility] Comment on above: Order Comment: No: D o not add to previous drawCriteria for reflexing a culture was not met. Please call the lab [id number] within 24 hours of collection time if culture is needed Performed By: #### 3 0965 ####[facility] [facility] [place] [address], [facility] Nitrite Ql (U) Negative Normal NEGATIVE [facility] Comment on above: Order Comment: No: D o not add to previous drawCriteria for reflexing a culture was not met. Please call the lab [id number] within 24 hours of collection time if culture is needed Performed By: #### 3 0965 ####[facility] [place] [address].[place] [address], [facility] pH (U) 7.0 [pH] Normal 5.0-8.0 [facility] Comment on above: Order Comment: No: D o not add to previous drawCriteria for reflexing a culture was not met. Please call the lab [id number] within 24 hours of collection time if culture is needed Performed By: #### 3 0965 ####[facility] [facility] [place] [address], [facility] Protein Ql (U) Negative Normal NEGATIVE [facility] Comment on above: Order Comment: No: D o not add to previous drawCriteria for reflexing a culture was not met. Please call the lab [id number] within 24 hours of collection time if culture is needed Performed By: #### 3 0965 ####[facility] [place] [address].[place] [address], [facility] RBC NONE SEEN Normal NONE SEEN [facility] Comment on above: Order Comment: No: D o not add to previous drawCriteria for reflexing a culture was not met. Please call the lab [id number] within 24 hours of collection time if culture is needed Performed By: #### 3 0965 ####[facility] [facility].[address] SPEC GRAV 1.009 Low 1.015-1.02 0 [facility] Comment on above: Order Comment: No: D o not add to previous drawCriteria for reflexing a culture was not met. Please call the lab [id number] within 24 hours of collection time if culture is needed Performed By: #### 3 0965 ####[facility] [facility].[address] UA COMMENT 2 UROBILINOGEN (E.U./DL)= 2.0 Normal [facility] Comment on above: Order Comment: No: D o not add to previous drawCriteria for reflexing a culture was not met. Please call the lab [id number] within 24 hours of collection time if culture is needed Performed By: #### 3 0965 ####[address] WBC UA NONE SEEN Normal NONE SEEN [facility] Comment on above: Order Comment: No: D o not add to previous drawCriteria for reflexing a culture was not met. Please call the lab [id number] within 24 hours of collection time if culture is needed Performed By: #### 3 0965 ####[place] [address] [facility].[address] APTTon 01-01-2022 aPTT Coag (Bld) [Time] 31.6 s Normal 25.0-35.0 [facility] Comment on above: Order Comment: post thoracotomy [...] THIS PURPOSE. Performed By: #### 5 6101, 63363 ####[facility] [facility] [place] [address], [facility] BASIC METABOLIC PANELon 06-0 Calcium [Mass/Vol] 9.6 mg/dL Normal 8.6-10.3 [facility] Comment on above: Order Comment: Check Chest Tube Position, ON ARRIVAL TO CVU Performed By: #### 3 5200, 97364, 69330, 00073 ####[facility] [place] [address], [facility] Chloride [Moles/Vol] 105 mmol/L Normal 98-107 [facility] Comment on above: Order Comment: Check Chest Tube Position, ON ARRIVAL TO CVU Performed By: #### 3 5200, 19692, 16992, 23382 ####[facility] [place] [address], [place] CO2 [Moles/Vol] 25 mmol/L Normal 21-31 [facility] Comment on above: Order Comment: Check Chest Tube Position, ON ARRIVAL TO CVU Performed By: #### 3 5200, 23092, 34201, 94007 ####[facility] [place] [address], [facility] Creatinine [Mass/Vol] 1.03 mg/dL Normal 0.70-1.30 [facility] Comment on above: Order Comment: Check Chest Tube Position, ON ARRIVAL TO CVU Performed By: #### 3 5200, 20445, 96625, 08320 ####[facility] [place] [address], [place] GFR/1.73 sq M.predicted among blacks MDRD (S/P/Bld) [Vol rate/Area] mL/min/{1.73_m2} Normal >60 [facility] Comment on above: Order Comment: Check Chest Tube Position, ON ARRIVAL TO CVU Performed By: #### 3 5200, 88765, 64822, 37619 ####[facility] [place] [address], [place] GFR/1.73 sq M.predicted among non-blacks MDRD (S/P/Bld) [Vol rate/Area] mL/min/{1.73_m2} Normal >60 [facility] Comment on above: Order Comment: Check Chest Tube Position, ON ARRIVAL TO CVU Performed By: #### 3 5200, 63120, 14536, 88368 ####[facility] Glucose [Mass/Vol] 101 mg/dL High 70-100 [facility] Comment on above: Order Comment: Check Chest Tube Position, ON ARRIVAL TO CVU Performed By: #### 3 5200, 64256, 18125, 96470 ####[facility] [place] [address], [facility] Potassium [Moles/Vol] 3.9 mmol/L Normal 3.5-5.1 [facility] Comment on above: Order Comment: Check Chest Tube Position, ON ARRIVAL TO CVU Performed By: #### 3 5200, 49394, 80896, 24522 ####[facility] Sodium [Moles/Vol] 138 mmol/L Normal 136-145 [facility] Comment on above: Order Comment: Check Chest Tube Position, ON ARRIVAL TO CVU Performed By: #### 3 5200, 44386, 91774, 92414 ####[facility] [place] [address], [facility] Urea nitrogen [Mass/Vol] 13 mg/dL Normal 7-25 [facility] Comment on above: Order Comment: Check Chest Tube Position, ON ARRIVAL TO CVU Performed By: #### 3 5200, 38940, 81757, 11393 ####[facility] BNP (B-TYPE NATRIURETIC PEPT [place])on 01-01-2022 Natriuretic peptide B (Bld) [Mass/Vol] 19 pg/mL Normal 0-100 [facility] Comment on above: Order Comment: Check Chest Tube Position Result Comment: Give n the appropriate clinical setting a BNP result of >100 pg/mL indicates congestive heart failure. Performed By: #### 8 5123 ####[facility] CBC W/DIFFon 01-01-2022 ABS IMM GRANS 0.0 10*3/uL Normal 0.0-0.2 [facility] Comment on above: Performed By: #### 5 0103 ####[facility] [place] [address], [facility] ABS NEUTROPHILS 4.9 10*3/uL Normal 1.6-7.6 [facility] Comment on above: Performed By: #### 5 0103 ####[facility] [place] [address], [facility] Basophils (Bld) [#/Vol] 0.0 10*3/uL Normal 0.0-0.2 [facility] Comment on above: Performed By: #### 5 0103 ####[facility] [place] [address], [facility] Basophils/100 WBC (Bld) 0.5 % Normal 0.0-1.0 [facility] Comment on above: Performed By: #### 5 0103 ####[facility] [place] [address], [facility] Eosinophils (Bld) [#/Vol] 0.1 10*3/uL Normal 0.0-0.5 [facility] Comment on above: Performed By: #### 5 0103 ####[facility] [place] [address], [facility] Eosinophils/100 WBC (Bld) 1.8 % Normal 0.0-6.0 [facility] Comment on above: Performed By: #### 5 0103 ####[facility] Erythrocyte distribution width (RBC) [Ratio] 12.6 % Normal 11.5-15.0 [facility] Comment on above: Performed By: #### 3 ####[facility] Hematocrit (Bld) [Volume fraction] 40.4 % Normal 39.0-50.0 [facility] Comment on above: Performed By: #### 102 ####[facility] Hemoglobin (Bld) [Mass/Vol] 14.2 g/dL Normal 13.0-17.0 [facility] Comment on above: Performed By: #### 102 ####[facility] IMMATURE GRANS 0.3 % Normal 0.0-1.0 [facility] Comment on above: Performed By: #### 102 ####[facility] [place] [address] Lymphocytes (Bld) [#/Vol] 2.2 10*3/uL Normal 1.2-4.0 [facility] Comment on above: Performed By: #### 5 3 ####[facility] Lymphocytes/100 WBC (Bld) 28.0 % Normal 20.0-45.0 [facility] Comment on above: Performed By: #### 5 3 ####[facility] MCH (RBC) [Entitic mass] 30.1 pg Normal 27.0-33.0 [facility] Comment on above: Performed By: #### 5 3 ####[facility] [facility].[address] MCHC (RBC) [Mass/Vol] 35.1 g/dL High 32.0-35.0 [facility] Comment on above: Performed By: #### 5 0103 ####[facility] [facility].[address] MCV (RBC) [Entitic vol] 85.6 fL Normal 82.0-98.0 [facility] Comment on above: Performed By: #### 0103 ####[facility] Monocytes (Bld) [#/Vol] 0.7 10*3/uL Normal 0.1-1.0 [facility] Comment on above: Performed By: #### 3 ####[place] [address] [facility].[address] MONOS 8.5 % Normal 5.0-12.0 [facility] Comment on above: Performed By: #### 5 3 ####[facility] Neutrophils/100 WBC (Bld) 60.9 % Normal 40.0-72.0 [facility] Comment on above: Performed By: #### 3 ####[place] [address] [facility].[address] Nucleated RBC/100 WBC (Bld) [Ratio] 0 % Normal 0-0 [facility] Comment on above: Performed By: #### 5 0103 ####[facility] [facility] [place] [place] [address], [facility] PLAT CNT 237 10*3/uL Normal 150-400 [facility] Comment on above: Performed By: #### 5 3 ####[facility] [facility] [place] [place] [address], [facility] RBC (Bld) [#/Vol] 4.72 10*6/uL Normal 4.20-5.70 [facility] Comment on above: Performed By: #### 5 0103 ####[facility] [facility] [place] [place] [address], [facility] WBC (Bld) [#/Vol] 7.96 10*3/uL Normal 4.00-10.60 [facility] Comment on above: Performed By: #### 5 0103 ####[facility] [facility].[address] HEMOGLOBIN A1Con 01-01-2022 Glucose [Moles/Vol] 137 mmol/L Normal [facility] Comment on above: Order Comment: evalu ate Performed By: #### 3 1791 ####[facility] [facility].[address] HbA1c (Bld) [Mass fraction] 6.4 % High 4.0-6.0 [facility] Comment on above: Order Comment: evalu ate Performed By: #### 3 1791 ####[place] [address] [facility].[address] MAGNESIUM BLOODon 01-01-2022 Magnesium [Mass/Vol] 2.1 mg/dL Normal 1.9-2.7 [facility] Comment on above: Order Comment: Check Chest Tube Position, ON ARRIVAL TO CVU Performed By: #### 3 5200, 01805, 95855, 41719 ####[facility] [facility] [place] [place] [address], [facility] PHOSPHORUS BLOODon Phosphate [Mass/Vol] 3.7 mg/dL Normal 2.5-5.0 [facility] Comment on above: Order Comment: Check Chest Tube Position, ON ARRIVAL TO CVU Performed By: #### 3 5200, 21875, 98836, 55955 ####[facility] [place] [address], [facility] POC GLUCOSE LABon 01-01-2022 Glucose [Mass/Vol] 192 mg/dL High 70-100 [facility] Comment on above: Performed By: #### 8 5499 ####[facility] [place] [address], [facility] Glucose [Mass/Vol] 124 mg/dL High 70-100 [facility] Comment on above: Performed By: #### 8 5499 ####[facility] [place] [address], [facility] PORTABLE CHEST 1 VIEWon PORTABLE CHEST 1 VIEW [facility] Department of Radiology [address] [place] [address] [id number] Patient Name: OSWALD OCHOA : 1955 Sex: M Age: Race: White Pt. Location: [id number] Patient Status: I Ordered Date: 01/01/2022 4:50:00 [...] unremarkable. Electronically signed: Dia Hodges. Transcribed by: [email or web address], User Resident: Electronically Signed by: DIA Veronique HODGES @ 01/01/2022 05:51 PM Normal [facility] PROTHROMBIN TIMEon 2 INR Coag (PPP) [Relative time] 0.99 {INR} Normal 0.91-1.16 [facility] Comment on above: Order Comment: post thoracotomy [...] CHEST 1995;108:[id number]. Performed By: #### 5 6101, 35534 ####[facility] [facility].[address] PT Coag (PPP) [Time] 13.1 s Normal 12.3-14.8 [facility] Comment on above: Order Comment: post thoracotomy Result Comment: ALL RESULTS MUST BE INTERPRETED WITH RESPECT TO BLOOD DRAWING ARTIFACT OR DILUTION ERROR OF ANTICOAGULANT AT THE TIME OF SAMPLING. Performed By: #### 5 6101, 03844 ####[facility] TROPONIN-Ion 01-01-2022 Troponin I.cardiac [Mass/Vol] 0.00 ng/mL Normal 0.00-0.04 [facility] Comment on above: Order Comment: Check Chest Tube Position Result Comment: REFE RENCE RANGES: 0.00 - 0.04 ng/ml NORMAL 0.05 - 0.50 ng/ml INDETERMINATE > 0.50 ng/ml CONSISTENT WITH AN M.I. Performed By: #### 3 5200 ####[facility] Troponin I.cardiac [Mass/Vol] 0.00 ng/mL Normal 0.00-0.04 [facility] Comment on above: Order Comment: Check Chest Tube Position, ON ARRIVAL TO CVU Result Comment: REFE RENCE RANGES: 0.00 - 0.04 ng/ml NORMAL 0.05 - 0.50 ng/ml INDETERMINATE > 0.50 ng/ml CONSISTENT WITH AN M.I. Performed By: #### 3 5200, 17111, 94188, 69259 ####[facility] Cardiovascular Lab Reporton 12-19-2021 Cardiovascular Lab Report [facility]: [id number] Physician: Alissa Girard of [facility] Service Date: 12/18/2021 Division of Birthdate: 1955 Cardiology Room #: Adult Cardiovascular Services [facility] [address] [place] [address] Cardiovascular Laboratory Report PROCEDURES PERFORMED: 1. Bilateral selective coronary angiography. 2. Left heart catheterization. FINAL IMPRESSIONS: 1. Severe 3 vessel [place] coronary artery disease. 2. Normal LVEDP. RECOMMENDATIONS: [...] Galindo MD Date Trans: 12/18/2021 11:28 P/jackie [id number] Normal [facility] Vital Signs Date Time Vital Sign Value Performing Clinician Facility 07-06-2024 15:24-0500 Body height 172.7 cm Justus Braxton MD Work Phone: [facility] 07-06-2024 15:24-0500 Body mass index (BMI) [Ratio] 37.07 kg/m2 Justus Braxton MD Work Phone: [facility] 07-06-2024 15:24-0500 Body weight 110.6 kg Justus Braxton MD Work Phone: [facility] 07-06-2024 15:24-0500 Diastolic blood pressure 66 mm[Hg] Justus Braxton MD Work Phone: [facility] 07-06-2024 15:24-0500 Heart rate 56 /min Justus Braxton MD Work Phone: [facility] 07-06-2024 15:24-0500 Systolic blood pressure 163 mm[Hg] Justus Braxton MD Work Phone: [facility] 05-28-2024 09:59-0400 Blood Pressure Location Olivia Galea [facility] 05-28-2024 09:59-0400 Diastolic blood pressure 80 mm[Hg] Olivia Galea [facility] 05-28-2024 09:59-0400 Heart rate 70 /min Olivia Galea [facility] 05-28-2024 09:59-0400 Systolic blood pressure 160 mm[Hg] Olivia Galea [facility] 05-01-2024 10:20-0400 Diastolic blood pressure 79 mm[Hg] Alissa Mooney [facility] 05-01-2024 10:20-0400 Heart rate 76 /min Alissa Monoey [facility] 05-01-2024 10:20-0400 Mean blood pressure 100 mm[Hg] Mohamad Mouchli [facility] 05-01-2024 10:20-0400 Respiratory rate 15 /min Mohamad Mouchli [facility] 05-01-2024 10:20-0400 SaO2% (BldA) [Mass fraction] 96 % Mohamad Mouchli [facility] 05-01-2024 10:20-0400 Systolic blood pressure 142 mm[Hg] Mohamad Mouchli [facility] 05-01-2024 10:11-0400 Diastolic blood pressure 80 mm[Hg] Mohamad Mouchli [facility] 05-01-2024 10:11-0400 Heart rate 85 /min Mohamad Mouchli [facility] 05-01-2024 10:11-0400 Respiratory rate 14 /min Mohamad Mouchli [facility] 05-01-2024 10:11-0400 SaO2% (BldA) [Mass fraction] 97 % Mohamad Mouchli [facility] 05-01-2024 10:11-0400 Systolic blood pressure 132 mm[Hg] Mohamad Mouchli [facility] 05-01-2024 10:10-0400 Diastolic blood pressure 80 mm[Hg] Mohamad Mouchli [facility] 05-01-2024 10:10-0400 Heart rate 86 /min Mohamad Mouchli [facility] 05-01-2024 10:10-0400 Mean blood pressure 97 mm[Hg] Mohamad Mouchli [facility] 05-01-2024 10:10-0400 Respiratory rate 14 /min Mohamad Mouchli [facility] 05-01-2024 10:10-0400 SaO2% (BldA) [Mass fraction] 97 % Mohamad Mouchli [facility] 05-01-2024 10:10-0400 Systolic blood pressure 130 mm[Hg] [facility] [facility] 10:05-0400 Blood Pressure Location Mohamad Mouchli [facility] 05-01-2024 10:05-0400 Body temperature 97.88 [degF] Mohamad Mouchli [facility] 05-01-2024 10:05-0400 Mean blood pressure 93 mm[Hg] Mohamad Mouchli [facility] 05-01-2024 08:34-0400 Blood Pressure Location Mohamad Mouchli [facility] 05-01-2024 08:34-0400 Body temperature 97.88 [degF] Mohamad Mouchli [facility] 04-16-2024 10:19-0400 Blood Pressure Location Mohamad Mouchli [facility] 04-16-2024 10:19-0400 Diastolic blood pressure 89 mm[Hg] Mohamad Mouchli [facility] 04-16-2024 10:19-0400 Heart rate 51 /min Mohamad Mouchli [facility] 04-16-2024 10:19-0400 Systolic blood pressure 162 mm[Hg] Alissa Mooney [facility] 03-24-2024 11:05-0400 Body height 172.72 cm [facility] 03-24-2024 11:05-0400 Body mass index (BMI) [Ratio] 37.2 kg/m2 [facility] 03-24-2024 11:05-0400 Body weight 111.13 kg [facility] 03-24-2024 11:05-0400 Diastolic blood pressure 83 mm[Hg] [facility] 03-24-2024 11:05-0400 Heart rate 54 /min [facility] 03-24-2024 11:05-0400 Systolic blood pressure 154 mm[Hg] [facility] 08-09-2022 10:45-0500 Body height 173.99 cm Jacob Mckeon Other [facility] [employer] Other 08-09-2022 10:45-0500 Body mass index (BMI) [Ratio] 35.81 kg/m2 Jacob Mckeon Other [employer] Other 08-09-2022 10:45-0500 Body weight 108.41 kg Jacob Mckeon Other [employer] Other 08-09-2022 10:45-0500 Diastolic blood pressure 72 mm[Hg] Jacob Mckeon Other [employer] Other 08-09-2022 10:45-0500 SaO2% (BldA) [Mass fraction] 97 % Jacob Mckeon Other [employer] Other 08-09-2022 10:45-0500 Systolic blood pressure 132 mm[Hg] Jacob Mckeon Other [employer] Other 07-25-2022 13:00-0500 Body height 175.26 cm Mary Ontiveros Other [employer] Other 07-25-2022 13:00-0500 Body mass index (BMI) [Ratio] 35.73 kg/m2 Mary Ontiveros Other [employer] Other 07-25-2022 13:00-0500 Body temperature 97.8 [degF] Mary Ontiveros Other [employer] Other 07-25-2022 13:00-0500 Body weight 109.77 kg Mary Ontiveros Other [employer] Other 07-25-2022 13:00-0500 Respiratory rate 18 /min Mary Ontiveros Other [employer] Other 07-25-2022 13:00-0500 SaO2% (BldA) [Mass fraction] 96 % Mary Ontiveros Other [employer] Other 02-28-2022 12:30-0400 Body height 175.26 cm Cass Lakhanimond Other [employer] Other 02-28-2022 12:30-0400 Body mass index (BMI) [Ratio] 34.26 kg/m2 Cass Marquita Other [employer] Other 02-28-2022 12:30-0400 Body temperature 100.6 [degF] Cass Marquita Other [employer] Other 02-28-2022 12:30-0400 Body weight 105.24 kg Cass Marquita Other [employer] Other 02-28-2022 12:30-0400 Respiratory rate 18 /min Cass Lakhanimond Other [employer] Other 02-28-2022 12:30-0400 SaO2% (BldA) [Mass fraction] 97 % Cass Juárez Other [employer] Other Encounters Encounter Date Encounter Type Care Provider Facility Start: 06-04-2025 ambulatory Shade WOOD Facili ty:ALYSIA Tillman Start: 12-10-2024 End: 12-10-2024 ambulatory Shade WOOD Facility:CD:[id number] Start: 11-24-2024 End: 11-24-2024 Bamboo flowschris Synder DO Work Phone: [facility] Start: 11-24-2024 End: 11-24-2024 Bamboo flowsheet Jr. Dinora Snyder DO Work Phone: [facility] Start: 11-24-2024 End: 11-24-2024 Office outpatient visit 15 minutes Jr. Dinora Snyder DO Work Phone: [facility] Comment on above: Primary osteoarthrit is of left knee (Primary Dx); Acute pain of left knee Start: 11-24-2024 End: 11-24-2024 ambulatory DINORA TORRES Not Available Start: 11-20-2024 End: 11-20-2024 ambulatory Shade WOOD Facility:[facility] Tillman Start: 11-17-2024 End: 11-17-2024 Telephone encounter Kehinde Gonzalez MOSAIC TECHNICIAN Work Phone: [facility] Comment on above: Injection Start: 10-26-2024 End: 10-26-2024 Bamboo flowsheet Kehinde Gonzalez MOSAIC TECHNICIAN Work Phone: [facility] Start: 10-26-2024 End: 10-26-2024 Bamboo flowsheet Kehinde Gonzalez MOSAIC TECHNICIAN Work Phone: [facility] Start: 10-26-2024 End: 10-26-2024 ambulatory KEHINDE GONZALEZ Not Available Start: 10-26-2024 End: 10-26-2024 Office outpatient visit 25 minutes Kehinde Gonzalez NP Work Phone: [facility] Comment on above: Primary osteoarthrit is of left knee (Primary Dx); Acute pain of left knee Start: 10-08-2024 End: 10-08-2024 ambulatory [facility] Start: 07-06-2024 End: 07-06-2024 ambulatory JACOB MCKEON Facility:[facility] Start: 07-06-2024 End: 07-06-2024 Office outpatient new 45 minutes Justus Braxton MD Work Phone: Gastroenterology Comment on above: Subepithelial lesion of esophagus (Primary Dx); Hiatal hernia; Gastroesophageal reflux disease, unspecified whether esophagitis present; Diverticulosis Start: 05-28-2024 End: 05-28-2024 ambulatory JACOB MCKEON Facility:[facility] Start: 05-28-2024 End: 05-28-2024 Patient encounter procedure Olivia Woodard [facility] Start: 05-27-2024 End: 05-29-2024 Telephone encounter Justus Braxton MD Work Phone: Gastroenterology Comment on above: Appointment Start: 05-21-2024 End: 05-21-2024 ambulatory Alissa Mooney Facility:[facility] Start: 05-21-2024 End: 05-21-2024 Patient encounter procedure Alissa Mooney [facility] Start: 05-01-2024 End: 05-01-2024 ambulatory Alissa Mooney Facility:[facility] Start: 05-01-2024 End: 05-01-2024 Patient encounter procedure Alissa Mooney [facility] Start: 04-27-2024 End: 04-27-2024 ambulatory ALISSA GALINDO [facility] Start: 04-24-2024 ambulatory Alissa oMoney Facilit y:ALYS[facility]om[facility] Start: 04-16-2024 End: 04-16-2024 ambulatory Alissa Mooney Facility:[facility] Start: 04-16-2024 End: 04-16-2024 Patient encounter procedure Alissa Mooney [facility] Start: 03-24-2024 End: 03-24-2024 ambulatory [facility] Work Phone: Start: 03-24-2024 End: 03-24-2024 Patient encounter procedure [facility] Work Phone: Start: 08-19-2023 End: 08-19-2023 ambulatory Jacob Mckeon Other [employer] Other Start: 08-19-2023 Telephone encounter Jacob Mckeon [facility] Start: 12-25-2022 End: 12-26-2022 ambulatory MARCELINO STERN Facility:[facility] Start: 11-22-2022 End: 11-23-[address] JACOB MCKEON Facility:[facility] Start: 11-20-2022 End: 11-21-2022 ambulatory MARCELINO STERN Facility:[facility] Start: 11-12-2022 End: 11-13-2022 ambulatory MARCELINO STERN Facility:[facility] Start: 10-09-2022 End: 10-10-2022 ambulatory CINDY PIZARRO Facility:[facility] Start: 08-24-2022 End: 08-25-[address] CHALO CHEEMA Facility:[facility] Start: 08-09-2022 End: 08-09-2022 ambulatory Jacob Mckeon Other [employer] Other Start: 08-09-2022 Office outpatient vi sit 15 minutes Jacob Mckeon [facility] Start: 07-31-2022 End: 08-15-2022 ambulatory SUYAPALen GALINDO Facility:[facility] Start: 07-27-2022 End: 07-27-2022 ambulatory Jacob Linda Other [employer] Other Start: 07-27-2022 Telephone encounter Jacob Mkceon [facility] Start: 07-25-2022 End: 07-25-2022 ambulatory Mary Ontiveros Other [employer] Other Start: 07-25-2022 Office outpatient vi sit 25 minutes Mary Ontiveros [facility] Start: 06-25-2022 End: 06-26-2022 ambulatory CINDY PIZARRO Facility:[facility] Start: 06-01-2022 End: 06-02-[address] TRINIDAD CHRISTINA Facility:[facility] Start: 05-02-2022 End: 05-03-2022 ambulatory CINDY PIZARRO Facility:[facility] Start: 03-06-2022 Adult health examination Jacob Mckeon Other [employer] Other Start: 02-28-2022 End: 02-28-2022 ambulatory Cass Juárez Other [employer] Other Start: 02-28-2022 Office outpatient ne w 20 minutes Casstha Juárez [facility] Start: 02-26-2022 End: 07-31-2022 ambulatory ALISSA GALINDO Facility:[facility] Start: 01-01-2022 End: 01-07-2022 Evaluation and management of inpatient JACOB MCKEON Facility:[facility] Start: 01-01-2022 End: 01-02-2022 Evaluation and management of inpatient JACOB MCKEON Facility:[facility] Start: 12-30-2021 End: 01-16-2022 ambulatory JACOB MCKEON Facility:[facility] Start: 12-18-2021 End: 12-19-2021 ambulatory JACOB MCKEON Facility:[facility] Procedures Date Procedure Procedure Detail Performing Clinician Start: 10-26-2024 Arthrocentesis aspir&/inj major jt/bursa w/o Kehinde Gonzalez MOSAIC TECHNICIAN Work Phone: Start: 10-26-2024 Radiologic examination knee 1/2 views Kehinde Gonzalez MOSAIC TECHNICIAN Work Phone: Start: 05-01-2024 Colonoscopy Alissa Echavarriastormy Start: 05-01-2024 Esophagogastroduodenoscopy Alissa Echavarria stormy Start: 05-23-2022 History of coronary artery bypass grafting H/O four vessel coronary artery bypass graft Kehinde Gonzalez MOSAIC TECHNICIAN Work Phone: Start: 01-02-2022 Antibody screen JACOB MCKEON Comment on above: Performed By: #### [id number] ####[place] [address] Start: 05-29-2016 General examination of patient Jacob walls Other Start: 06-08-2015 Screening for malignant neoplasm of prostate Jacob Mckeon Other Colonoscopy Suyapalen Tuandemi Open heart surgery Olivia Wilmer dahl Plan of Treatment Date Care Activity Detail Author Start: 2029 RSV Vaccine (1 - 1-dose 75+ series) RSV Vaccine (1 - 1-dose 75+ series) [facility] Start: 05-25-2025 End: 05-25-2025 Patient encounter procedure 05/25/2025 8:00 AM EDT Office Visit [facility] [address] [place] [address] Jr. Dinora Snyder, DO [address] [facility] [address] [place] [address] [facility] Start: 11-24-2024 End: 11-24-2024 Patient encounter procedure [facility] Comment on above: Arrived Start: 07-06-2024 End: 07-06-2024 Patient encounter procedure 07/06/2024 3:30 PM EST Office Visit Gastroenterology [address] [place] [address] [place] [address] [facility] [place] [address] Discuss EGD/EUS radial and linear with FNB, per encounter Gastroenterology Comment on above: Discuss EGD/EUS radial and linear with F NB, per encounter Start: 03-29-2024 Covid-19 Vaccine ( season) Covid-19 Vaccine ( season) [facility] Start: 03-29-2024 Influenza vaccination Influenza Vaccine (#1) [facility] Start: 07-29-2023 Advance Directive Discussion Advance Directive Discussion [facility] Start: 2019 Pneumococcal Vaccine: 65+ (1 of 1 - PCV) Pneumococcal Vaccine: 65+ (1 of 1 - PCV) [facility] Start: 2004 Shingrix Vaccine (1 of 2) Shingrix Vaccine (1 of 2) [facility] Start: 1999 Diabetes Screening Diabetes Screening [facility] Start: 1999 Screening for malignant neoplasm of colon [facility] Start: 1989 Lipid panel Lipid Screening [facility] Start: 1973 Urine microalbumin profile DTaP,Tdap,Td Vaccine (1 - Tdap) [facility] Start: 1972 Annual PCP Team Chronic Disease Visit Annual PCP Team Chronic Disease Visit [facility] Start: 1972 Anxiety Screening Anxiety Screening [facility] Start: 1972 Depression Screening Depression Screening [facility] Start: 1972 Hepatitis B surface antibody level LDL Cholesterol [facility] Start: 1972 Hepatitis C screening Hepatitis C Screening [facility] Start: 1954 Abdominal aortic aneurysm screening Abdominal Aortic Aneurysm Screening [facility] End: 07-06-2025 EGD - THERAPEUTIC, EUS, OR TUBE INTERVENTIONS EGD - THERAPEUTIC, EUS, OR TUBE INTERVENTIONS Endoscopy Routine Subepithelial lesion of esophagus 1 Occurrences starting 07/06/2024 until 07/06/2025 [facility] Work Phone: Comment on above: 1 Occurrences starting 07/06/2024 until 07/06/2025 Immunizations Immunization Date Immunization Notes Care Provider Fa cility 06-05-2022 influenza (HD-IIV4) vaccine, age 65+ yr, high dose, quadrivalent, PF (FLUZONE HIGH-DOSE) Justus Braxton MD Work Phone: [facility] 06-05-2022 influenza virus vaccine, split virus (incl. purified surface antigen) Jacob Mckeon Other [employer] Other 06-05-2022 influenza virus vaccine, unspecified formulation [facility] 06-05-2022 Prevnar 20 Jacob Mckeon Other [facility] 05-02-2018 influenza virus vaccine, split virus (incl. purified surface antigen) Jacob Mckeon Other [facility] [employer] Other 05-02-2018 influenza virus vaccine, unspecified formulation [facility] 05-02-2018 influenza, injectabl e, quadrivalent, preservative free Justus Braxton MD Work Phone: [facility] 05-15-2017 influenza virus vaccine, unspecified formulation Mohtamika Modemi [facility] 05-15-2017 influenza, seasonal, injectable, preservative free Justus Braxton MD Work Phone: [facility] 05-15-2017 tetanus and diphther ia toxoids, adsorbed, preservative free, for adult use (5 Lf of tetanus toxoid and 2 Lf of diphtheria toxoid) aJcob Mckeon Other [facility] 05-30-2016 zoster vaccine, live Jacob Mckeon Other [facility] 05-04-2016 influenza virus vaccine, unspecified formulation Mohjourdand Modemi [facility] 05-04-2016 influenza, seasonal, injectable, preservative free Justus Braxton MD Work Phone: [facility] 05-04-2016 tetanus and diphther ia toxoids, adsorbed, preservative free, for adult use (5 Lf of tetanus toxoid and 2 Lf of diphtheria toxoid) Jacob Linda Other [facility] Payers Date Payer Category Payer Private Health Insurance [employer] [id number] 2021 Unknown MMO MMO MEDICARE SUPPLEMENT [id number] 2021- [phone] [address] [place] [address] Indemnity [id number] 2019 Medicare [id number] 1959 Medicare [id number] 1959 Self-pay 1959 Unknown [id number] 1959 Unknown [id number] 1954 Unknown [id number] 2.16.840.1.193058.3.579.2.6 47 1954 Unknown [id number] 2.16.840.1.952879.3.579.2.6 47 1954 Unknown [id number] 2.16.840.1.622309.3.579.2.6 47 1954 Unknown [id number] 2.16.840.1.930745.3.579.2.6 47 1954 Unknown [id number] 2.16.840.1.752726.3.579.2.5 93 1954 Unknown [id number] 2.16.840.1.457548.3.579.2.5 93 1954 Unknown [id number] 2.16.840.1.727947.3.579.2.5 93 1954 Unknown [id number] 2.16.840.1.236978.3.579.2.5 93 1954 Unknown [id number] 2.16.840.1.127453.3.579.2.5 93 1954 Unknown [id number] 2.16.840.1.270540.3.579.2.5 93 1954 Unknown [id number] 2.16.840.1.599059.3.579.2.5 93 1954 Unknown [id number] 2..840.1.592139.3.579.2.5 93 1954 Unknown [id number] 2.16.840.1.904825.3.579.2.5 93 1954 Unknown [id number] 2.16.840.1.440403.3.579.2.5 93 1954 Unknown [id number] 2.16.840.1.518168.3.579.2.5 93 1954 Unknown [id number] 2..840.1.653569.3.579.2.7 27 1954 Unknown [id number] 2.16.840.1.706776.3.579.2.7 27 1954 Unknown [id number] 2.16.840.1.533472.3.579.2.7 27 1954 Unknown [id number] 2.16.840.1.478131.3.579.2.7 27 1954 Unknown [id number] 2.16.840.1.913717.3.579.2.1 259 1954 Unknown [id number] 2.16.840.1.619600.3.579.2.1 259 1954 Unknown [id number] 2.16.840.1.286034.3.579.2.1 259 1954 Unknown [id number] 2.16.840.1.556738.3.579.2.7 27 1954 Unknown [id number] 2.16.840.1.906101.3.579.2.7 27 1954 Unknown [id number] 2.16.840.1.181411.3.579.2.7 27 1954 Unknown [id number] 2.16.840.1.300221.3.579.2.7 27 Medicare [id number] 2.16.840.1.292885.19 Unknown [id number] 2.16.840.1.416027.3.579.2.5 93 Social History Date Type Detail Facility Start: 07-06-2024 End: 10-26-2024 Sex Assigned At [facility] Start: 1955 Sex Assigned At Male [facility] Start: 04-16-2024 End: 05-28-2024 Tobacco smoking status Never smoked tobacco (finding) [facility] Tobacco smoking status Never [facility] Start: 06-12-2023 End: 07-06-2024 Tobacco smoking status Ex-smoker (finding) [facility] consumption [facility] Start: 1955 Sex assigned at Not on file [facility] End: 07-29-1989 History of tobacco use Current smoker [facility] End: 07-29-1989 History of tobacco use Cigarette Smoker [facility] Start: 06-12-2023 End: 07-06-2024 Tobacco use and exposure Smokeless tobacco non-user [facility] Start: 07-06-2024 End: 10-26-2024 Alcoholic beverage intake Current drinker of alcohol (finding) [facility] Start: 07-06-2024 End: 10-26-2024 History of Social function [facility] Start: 07-06-2024 Alcohol Comment Socially [facility] Start: 02-18-2023 Tobacco Comment Last smoked: 1-5 yea rs [facility] Start: 02-18-2023 Alcohol Comment Coffee 2-3 cups per day [facility] Medical Equipment Procedure Code Equipment Code Equipment Origin al Text Equipment Identifier Dates Lancets - Start: 08-19-2023 Functional Status Date Assessment Result Facility 05-28-2024 Functional Status N/A [facility] 05-01-2024 Functional Status N/A [facility] 04-16-2024 Functional Status N/A [facility] Clinical Notes 01-24-2022 to 11-24-2024 Jr. Dinora Snyder, DO - 11/24/2024 8:00 AM EDTTelephone Encounter - Charmaine Grant - 11/17/2024 1:31 PM EDTTelephone Encounter - Charmaine Grant - 11/17/2024 1:31 PM EDTPatient Instructions Note [...] requiring urgent evaluation. documented in this encounter [facility] 11-20-2024 Note Patient Education Nephrology ESWL for [...] including vitamins, herbs, eye drops, creams, and jqgk-rdv-pvmjylc medicines. ??? Any problems you or family [...] care provider tells you to. ??? Taking kaug-ncv-ypwwsjt medicines, vitamins, herbs, and supplements. Tests You [...] to you b (more content not included)... [facility] 11-17-2024 Telephone encounter Note Patient's called and left . She stated that the cortisone injection that he had 1 month ago has not helped at all. Please advise [phone]. [facility] 11-17-2024 Miscellaneous Notes Patient's called and left . She stated that the cortisone injection that he had 1 month ago has not helped at all. Please advise [phone]. documented in this encounter [facility] 10-26-2024 History of Present illness Narrative Associated Order(s): L Inj/Asp: L knee Post-Procedure Diagnose(s): Primary osteoarthritis of left knee Images from the original note were not included. HISTORY OF PRESENT ILLNESS: KATHY PT Oswald Ochoa is an 69 y.o. [...] knee showed severe varus deformity with near cxeh-xu-fodd articulation to the medial joint line, flattening [...] left knee with varus deformity Kehinde Gonzalez APRN-LABOR TRAINER L Inj/Asp: L knee on 10/26/2024 11:12 [...] develop for requiring urgent evaluation. Kehinde Gonzalez HOT MILL SUPERVISOR-LABOR TRAINER documented in this encounter [facility] 10-08-2024 Note Patient here for [address] [facility] follow up. Patient has a history of [...] chest pain. Musculoskeletal: Positive for joint pain. [facility] 10-08-2024 Note Cardiovascular Medic [facility] SUBJECTIVE Chief Complaint Patient presents with [...] DAY, Disp: , Rfl: Accu-Chek Softclix Lancets [facility], USE 1 LANCET DAILY TO CHECK BLOOD [...] on 04/27/2024), Disp: 90 tablet, Rfl: 3 ibrstmrvzibr-epvq-umzznihq-folic acid (Multivitamin 50 Plus) tablet, Take 1 [...] Heart sounds: Norm (more content not included)... [facility] 07-06-2024 Instructions Justus Braxton MD - 07/06/2024 3:59 PM EST It was nice meeting you Continue taking Prilosec on empty stomach 30-60 minutes before breakfast If you have heartburn symptoms in the evening then take Pepcid as needed Please hold your Plavix 7 days before your procedure Plan for endoscopic ultrasound to evaluate subepithelial lesion in the esophagus documented in this encounter [facility] 07-06-2024 History and physical note Patient [...] MORNING *DO NOT CRUSH OR CHEW* - Umgqbrogmfqmf-Poouqbyw-Ihobqd (MULTIVITAMIN 50 PLUS) tab; Take 1 tablet [...] Justus Braxton MD Gastroenterology, Hepatology and Nutrition [facility] 07-06-2024 History and physical note Patient [...] MORNING *DO NOT CRUSH OR CHEW* - Gstbvazgflymp-Txagcsbp-Okedcb (MULTIVITAMIN 50 PLUS) tab; Take 1 tablet [...] Hepatology and Nutrition documented in this encounter [facility] 05-29-2024 Telephone encounter Note Spoke to patient and scheduled OV with Dr. Braxton on 07/06/24 at [facility] at 3:30 pm per message below. [facility] 05-29-2024 Miscellaneous Notes Spoke to patient and scheduled OV with Dr. Braxton on 07/06/24 at [facility] at 3:30 pm per message below. I [...] for subepithelial lesion of the mid esophagus. 10/4/24 EGD was preformed per Dr. Mooney. Z-line [...] Marisa Hu RN documented in this encounter [facility] 05-29-2024 Telephone encounter Note I agree [...] is agreeable. Thank you Marisa Hu RN [facility] 05-28-2024 Hospital Discharge instructions Patient Education 05/28/2024 11:21:41 Kidney Stones, Hwsy-dz-Ewsj Kidney Stones Kidney stones are rock-like masses [...] Follow these instructions at home: Medicines Take lyns-psu-egzkgoh and prescription medicines only as told by [...] provider. Document Revised: 03/08/2023 Document Reviewed: 03/08/2023 [employer] Patient Education 2023 [employer]. 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 Jacob Mckeon for BPH [...] E&M of New Patient High 60-74 Min 56417 Influenza immunization status assessed 1030F Medication list [...] Urnls Dip Stick Auto w/o Microscopy POC 62109 2. Kidney stone, (N20.0: Calculus of kidney)Kidney [...] stone prevention diet/fluids with patient. -Will call [facility] for addendum to CT report from 04/17/24 for stone sizing -KUB/ANAMARIA at [facility] in 6 months (reminder in place) -Increase fluids, add lemon/catawba to diet -Low animal protein, low salt diet -Consider metabolic workup in the future -Call our office or go to ER for severe flank pain, N/V, fever/chills, inability to urinate -F/U [address] Wood to review KUB/ANAMARIA Ordered: E&M of New Patient High 60-74 Min 27040 3. 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 (more content not included)... [facility] Comment on above: Result Comment: Elec tronically Signed By: Galea Olivia BARTHOLOMEW.sinan\Date and Time Signed: 05/28/24 11:33 EDT 05-28-2024 [...] these instructions at home: Medicines ??? Take mvdj-ixp-ebcibll and prescription medicines only as told by [...] provider. Document Revised: 03/08/2023 Document Reviewed: 03/08/2023 [employer] Patient Education ? 2023 [employer]. [facility] 05-27-2024 Telephone encounter Note Received referral per [...] on Plavix Thank you. Marisa Hu RN [facility] 05-01-2024 Note Progress Note-Reyes hatch Patient: OSWALD OCHOA Age: 69 years Sex: Male : 1955 Associated Diagnoses: None Author: Randell Oneal MD Postoperative Information Postoperative disposition: Postoperative disposition: To PACU. Optimetrix number: Optimetrix number [id number]. Anesthetic utilized: General. Health Status Allergies: Allergic [...] when meets criteria ( To home ). [facility] Comment on above: Result Comment: Elec tronically Signed By: Randell Oneal MD\.br\Date and Time Signed: 05/01/24 16:04 EDT 05-01-2024 Evaluation + Plan note Extrac cayetano from: Title:ANES Post-operative Note---General Author: Randell Oneal MD. Date:05/01/24 Plan Transfer/Discharge: Transfer/Discharge Discharge when meets criteria ( To home ). Extracted from: Title:ANES Pre-operative Note 2022 Author:Randell Kidd. Date:05/01/24 Plan [place] [employer] Anesthesiologists (ASA) physical status classification: Class III. Anesthetic Preoperative Plan: Anesthesia General. [facility] 10-04-2024 Hospital Discharge instructions Patient Education [...] unsweetened, w/added ascorbic acid 1 cup 0.5 [place] 1 cup 0.7 Vegetables Cooked Green beans 1 cup 4.0 Carrots 1/2 cup sliced 2.3 Peas 1 cup 8.8 Potato (baked, with skin) 1 medium potato 3.8 Raw [place] (with peel) 1 cucumber 1.5 Lettuce 1 [...] 8.7 Peanuts 1/2 cup 7.9 Chart from [facility] 2013. SEEK IMMEDIATE MEDICAL CARE IF: You [...] of Agriculture (USDA) National Nutrient Database at: http://www.ANTERIOS.usda.gov/fnic/foodcomp/search/ Created using data from the USDA National Nutrient Database for Standard Reference. Available at http://www.ANTERIOS.usda.gov/fnic/foodcomp/search/. Information adapted from: ExitCare Patient Information 2010 [employer]. [facility] 2012 http://www.The Black Tux/contents/zgdaxafgtdgv-tujrfoa-nyhslv-the-basics 05/01/2024 10:17:07 Colonoscopy, Care After Surgery Himanshu [...] Up Care 04/16/2024 11:17:17 With:Vinicio RUFFIN, Alissa Nunez, [facility] Address: [address] [place] [address], [address] [place] [phone] When: Unknown Comments:Office will call Date and Time of Follow-up Appt. [facility] 10-04-2024 NotePatient Education - Text Diverticulosis [...] unsweetened, w/added ascorbic acid 1 cup 0.5 [place] 1 cup 0.7 Vegetables Cooked Green beans 1 cup 4.0 Carrots 1/2 cup sliced 2.3 Peas 1 cup 8.8 Potato (baked, with skin) 1 medium potato 3.8 Raw [place] (with peel) 1 cucumber 1.5 Lettuce 1 [...] 8.7 Peanuts 1/2 cup 7.9 Chart from [facility] 2013. SEEK IMMEDIATE MEDICAL CARE IF: You [...] of Agriculture (USDA) National Nutrient Database at: http://www.ANTERIOS.usda.gov/fnic/foodcomp/search/ Created using data from the USDA National Nutrient Database for Standard Reference. Available at http://www.ANTERIOS.Targeter App.gov/fnic/foodcomp/search/. Information adapted from: [facility]? Patient Information ?2009 [employer]. [facility] 2012 http://www.The [employer] Tux/contents/bljbnvnfkqtq-txcudno-bwxenw-the-basics Colonoscopy Care After Surgery Please read the instructions outlined below and refer to this sheet in the next few weeks. These discharge instructions provide you with general information on caring [facility] Your doctor may also give you specific [...] your doctor. Begin wit (more content not included)...[facility]10-04-2024 NoteProgress Note-Physician Patient: OSWALD OCHOA Age: 69 [...] mg, Oral, q72hr, Refills(s) 0, Erectile dysfunction [facility]: Oral, Daily, Refill(s) 0, [...] Oral, Daily Cialis 5 mg, Oral, q72hr [facility] , Oral, Daily glipiZIDE 10 mg [...] All Problems Chronic GERD / SNOMED CT 084306578 / Confirmed Hiatal hernia / SNOMED CT 341153448 / Confirmed Obesity due to excess calories / SNOMED CT 2624909415 / Confirmed, Active Problems (3) Chronic GERD Hiatal hernia Obesity due to excess calories , HTN, HLD, NIDDM, CAD s/p CABG x 5 2021 Histories Past Medical History: No active or resolved past medical history items have been selected or recorded. Family History: Heart disease Father Procedure history: Colonoscopy ([id number]). Social History Social & Psychosocial Habits Tobacco [...] review: No qualifying data available . Plan [place] [employer] Anesthesiologists (ASA) physical status classification: Class III. Anesthetic Preoperative Plan: Anesthesia General.[facility] Comment on above:Result Comment: Electronically Signed By: Jm RUFFIN, Randell Bernardo\.br\Date and Time Signed: 05/01/24 09:55 [id number] NoteCardiovascular Medicine [facility] SUBJECTIVE Oswald Ochoa is a 69 [...] OR CHEW*, Disp: 90 tablet, Rfl: 3 hgmzwpvchzvu-spat-sxszlmbe-folic acid (Multivitamin 50 Plus) tablet, Take 1 [...] normally he is wit (more content not included)...[facility]01-22-2024 Evaluation note* Encounter Date Diagnosis Assessment Notes Treatment Notes Treatment Clinical Notes Jul, Type 2 diabetes mellitus with hyperglycemia, unspecified whether custodial insulin use (ICD-10 - E11.65) [facility] Other 01-12-2023 Evaluation note* Encounter Date Diagnosis Assessment Notes Treatment Notes Treatment Clinical Notes Jul, Colitis (ICD-10 - K52.9) Jul, Coronary artery disease, unspecified vessel or lesion type, unspecified whether angina present, unspecified whether [place] or transplanted heart (ICD-10 - I25.10) New medicine list and discussed symptoms with patient and Stable continue followup with his director of development and marketing Jul, Essential (primary) hypertension (ICD-10 - I10) Encouraged healthy diet and exercise and low-salt diet. Jul, Type 2 diabetes mellitus with hyperglycemia, unspecified whether custodial insulin use (ICD-10 - E11.65) Consider medication change after he resolves from present symptoms. [facility] Other 12-28-2022 Evaluation note* Encounter Date Diagnosis [...] condition Jun, Sore throat (ICD-10 - J02.9) [facility] Other 08-03-2022 Evaluation note* Encounter Date Diagnosis [...] (Suspected or Confirmed ) material was printed [facility] Other 06-29-2022 NoteMR#: [id number] I [facility] Pt. Name: Oswald Ochoa Admitted: 01/01/2022 Discharged: [...] COURSE: 66-year-old male who presented to an [facility] after having an episode of postprandial left-sided chest pain that lasted for about 2 hours. Chest pain was associated with shortness of breath and tingling of both upper extremities and generalized weakness. He was then admitted to [facility] for further [...] for him to see his PCP and director of development and marketing. Electronically Signed by: Jose R Guzman MD 01/24/2022 07:07 P Jose R Guzman MD I personally saw this patient on the day of the encounter, performed the south portion(s) of the service and participated in the management and confirm the resident's documentation. Please note there may be an additional personal documentation from me. Date Dict: 01/23/2022/12:20 P/Francisco Henley CNP Date Trans: 01/23/2022 10:56 P/jackie [id number] [facility] Future Appointments Appointment Date:05/01/2024 09:15:00 AM Scheduled Provider: Location:[facility] Appointment Type:Surgery [facility] Evaluation + Plan note Future Appointments Appointment Date:05/28/2024 10:00:00 AM Scheduled Provider:Olivia Dumont Location:[place] Appointment Type:URO New Patient [facility] Evaluation + Plan note Future Appointments Appointment Date:11/20/2024 09:45:00 AM Scheduled Provider:Shade WOOD MD Location:[place] Appointment Type:URO Office Visit Diagnostic Tests Pending * PSA Total 05/28/24 [facility] Mike evaluation noteNo InformationNortExcela [facility] Other Evaluation noteNo assessment information available [facility] Work Phone: Evaluation note* Diagnosis Subepithelial lesion of esophagus- Primary Hiatal hernia Diaphragmatic hernia without mention of obstruction or gangrene Gastroesophageal reflux disease, unspecified whether esophagitis present Diverticulosis Diverticulosis of colon (without mention of hemorrhage) documented in this encounter [facility]* Diagnosis Primary osteoarthritis of left knee- Primary Acute pain of left knee documented in this encounter [facility] HealthcareEvaluation note* Diagnosis Primary osteoarthritis of left knee- Primary Acute pain of left knee documented in this encounter [facility] HealthcareHistory general Narrative - Reported* Type Description Date Medical History Hypertension Surgical History Open Heart 2021 Hospitalization History see above [facility] Other History general Narrative - Reported* Type Description Date Medical History coronary artery disease Medical History diverticulitis Medical History hyperlipidemia Medical History type 2 diabetes Medical History Hypertension Surgical History Open Heart 2021 Surgical History kidney stone Surgical History hemicolectomy Surgical History open cholecystectomy Surgical History right inguinal hernia Surgical History left ventral hernia Hospitalization History see above [facility] Other Hospital course Narrative No data available for this section [facility] Hospital Discharge instructions No data available for this section [facility] Progress note No data available for this section [facility] Reason for referral (narrative)* Outpatient Procedure (Routine) - New Request Specialty Diagnoses / Procedures Referred By Aviva martinez Referred To Contact [facility] Diagnoses Subepithelial lesion of esophagus Procedures EGD - THERAPEUTIC, EUS, OR TUBE INTERVENTIONS EGD INTRMURAL US NEEDLE ASPIRATE/[place] [address] [place] [address] [facility] [address] [place] [address] Referral ID Status Reason Start Date Expiration Date Visits Requested Visits Authorized [id number] New Request Auto-Generat ed Referral 07/06/2024 07/06/2025 1 1 [facility] Summary Purpose Family History No Family [...] section and content) DATE CREATED AUTHOR 01/25/2022 [facility] DATE CREATED AUTHOR AUTHOR'S ORGANIZ ATION 01/04/2023 [facility] DATE CREATED AUTHOR AUTHOR'S ORGANIZ ATION 05/09/2024 [facility] DATE CREATED AUTHOR AUTHOR'S ORGANIZ ATION 05/11/2024 [facility] DATE CREATED AUTHOR AUTHOR'S ORGANIZ ATION 05/22/2024 [facility] DATE CREATED AUTHOR AUTHOR'S ORGANIZ ATION 07/09/2024 [facility] DATE CREATED AUTHOR AUTHOR'S ORGANIZ ATION 10/24/2024 [facility] DATE CREATED AUTHOR AUTHOR'S ORGANIZ ATION 11/25/2024 [facility] DATE CREATED AUTHOR AUTHOR'S ORGANIZ ATION 12/01/[address] [facility] DATE CREATED AUTHOR AUTHOR'S ORGANIZ ATION 12/25/2024 [facility] REASON FOR VISIT (unrecogniz ed section [...] March 24, 2024 End: March 24, 2024 Collections Attorney Relationship Specialty Start Date End Date Jacob Mckeon MD [address] [facility] [place] [phone] PCP - General Family Medicine 05/29/24 Collections Attorney Relationship Specialty Start Date End Date Jacob Mckeon MD [address] [facility] [place] [phone] PCP - General Family Medicine 05/29/24 Collections Attorney Relationship Specialty Start Date End Date Jacob Mckeon MD [address] [facility] [place] [phone] PCP - General Family Medicine 01/15/23 Collections Attorney Relationship Specialty Start Date End Date Jacob Mckeon MD [address] [facility] [place] [address] PCP - General Family Medicine 01/15/23 Collections Attorney Relationship Specialty Start Date End Date Jacob Mckeon MD PCP - General Family Medicine 01/15/23 Collections Attorney Relationship Specialty Start Date End Date Jacob Mckeon MD [address] [place] [phone] PCP - General Family Medicine 01/15/23 Collections Attorney Relationship Specialty Start Date End Date Jacob Mckeon MD [address] [place] [phone] PCP - General Family Medicine 01/15/23 Goals [...] or prosecute any alcohol or drug abuse patient.[facility] HospitalIn the event this information is protected by the Federal Confidentiality of Alcohol and Drug Abuse Patient Records regulations: The Federal rules restrict any use of the information to criminally investigate or prosecute any alcohol or drug abuse patient.[facility] FOR RECORDS PERTAINING TO PATIENTS WHO [...] BE BASED ON THE PRIMARY CLINICAL RECORDS. [facility] [facility]. provides no warranty or guarantee of the accuracy or completeness of information in this document.
[2025-01-28 10:09] LABS: Cholesterol 115 mg/dL (<=200); HDL Cholesterol 44 mg/dL (40-60); Triglycerides 65 mg/dL (<=150); VLDL CHOLESTEROL 13.0 mg/dL
== END 2025-01-28 09:18 | disposition home or self-care (01) ==
LOC: LAB 09:19
PROVIDERS: PCP Family Medicine; Visit Provider Nurse Practitioner Family
DX: E78.2 Mixed hyperlipidemia (principal); I25.10 Atherosclerotic heart disease of native coronary artery without angina pectoris
CPT/HCPCS: 36415; 80061

== ENCOUNTER 2025-05-15 17:05 | Emergency (ER) | payer MEDICARE, OTHER, SELFPAY ==
[2025-05-15] VITALS (17 sets, daily range): BP systolic 96–117; BP diastolic 58–68; PULSE 71–86; TEMP 36.4; O2SAT 94–99; BMI 35.7
--- OUTSIDE RECORDS SUMMARY | 2025-05-15 17:12 | XMS_ITS | CCD ---
Author Organization [facility] Care Team Providers Care Seal Extrusion Operator Name Role Phone JACOB MCKEON Primary [...] MARCELINO Consulting Unavailable EDILBERTO, MARCELINO Attending Unavailable MCKEON, DR JACOB Jimenez Primary Care Unavailable MCKEON, DR JACOB Jimenez Primary Care Unavailable EDILBERTO, MARCELINO Admitting Unavailable EDILBERTO, MARCELINO Attending Unavailable EDILBERTO, MARCELINO Admitting Unavailable EDILBERTOERENDIRAA Attending Unavailable ZAHRAA, DR CHRIS Robison Consulting [...] Admitting Unavailable JUAREZ, CINDY Consulting Unavailable JUAREZ, CIDNY Attending Unavailable LINDA, DR JACOB Jimenez Primary [...] Unavailable JR. SNYDER GEORGE C Attending Unavaila Shade Hernandez Attending Unavailable Shade WOOD Attending Unavailable Mouchli, Mohamad A. Attending Unavailable Mouchli, Mohamad A. Referring Unavailable Mouchli, Mohamad A. Admitting Unavailable Shade WOOD Attending Unavailable ALGHOALISSA GUPTA Attending Unavailable MARCELINO STERN Attending Unavailable KATIA MCDANIEL Attending Unavailable Jacob Mckeon MD Primary Care Provider [phone] Marcelino Griggs Attending Provider Jacob Mckeon MD Attending Provider Allergies Allergy Classification Reported Allergen(s) Allergy Type Date of Onset Reaction(s) Facility (1 source) patient allergy list reviewed by nurse or physicia Propensity to adverse reactions 4 Comment:Done [facility] Other (1 source) Allergies Reconciled Propensity to adverse reactions Unknown [facility] Other (3 sources) No Known Medication Allergies; Translations: [No Known Medication Allergies] Propensity to adverse reactions (disorder) [facility] Repository Medications Current Medications Medication Drug Class(es) Dates Sig (Normalized) Sig (Original) Accu-Chek Guide - (1 source) Accu-Chek Guide - USE TO TEST ONCE A DAY *DX E11.65* for 90 Active [id number] 200 actuat albuterol 0.09 mg/actuat metered dose inhaler (8 sources) beta2-Adrenergic Agonist Start: 10-02-2023 take 2 puff(s) by inhalation every four to six hours as needed Albuterol Sulfate 90 mcg/actuation HFA aerosol inhaler Active 2 PUFF INHALATION EVERY 4-6 HOURS October 02, 2023 1:00am FreeTextSi puffs as needed Inhalation every 4-6 hours; Note: Source Status: Not-Takingundefin edPRN; Refills: 0; Qty: 1 each; Provider: Weston Hernandez Complies with drug therapy Start: 07-25-2022 take 2 puff(s) by in [...] aspirin 81 mg delayed release oral tablet (20 sources) Platelet Aggregation Inhibitor, Nonsteroidal Anti-inflammatory Drug Start: 10-02-2023 take 1 tablet by mouth once daily Aspirin 81 mg tablet,delayed release (DR/EC) Active 81 MG PO Daily October 02, 2023 1:00am FreeTextSig: TAKE 1 TABLET BY MOUTH EVERY DAY Oral; Note: Source Status: Taking; Refills: 0; Qty: 90 Each; Provider: EDILBERTO BENSON Complies with drug therapy atorvastatin 80 mg oral tablet (9 sources) [...] P2Y12 Platelet Inhibitor Start: 10-02-2023 End: 04-22-2025 take 1 tablet by mouth once daily Clopidogrel 75 mg tablet Active 75 MG PO Daily October 02, 2023 1:00am FreeTextSi tablet Orally Once a day; Note: Source Status: Taking; Provider: Linda Flanagan ( ) Complies with drug therapy Plavix Not-Takin g/PRN Plavix Not-Takin g furosemide 20 mg oral tablet (10 sources) Loop Diuretic Start: 10-03-2023 take 1 tablet by mouth once daily Furosemide 20 mg tablet Active 20 MG PO Daily October 03, 2023 1:00am Complies with drug therapy Inulin / Lactobacillus rhamnosus GG (3 sources) Start: 09-16-2018 [facility] Oral, Daily, Refill(s) 0, Prophylaxis Start Date: 09/16/18 Status: Ordered latanoprost 0.05 mg/ml ophthalmic solution (12 sources) Prostaglandin Analog Start: 09-16-2018 latanoprost 0.005% preservative-free [...] bedtime. Active lisinopril 40 mg oral tablet (20 sources) Angiotensin Converting Enzyme Inhibitor Start: 06-09-2024 take 1 tablet by mouth once daily in the morning Lisinopril 40 mg tablet Active 0 .ROUTE .COMPLEX 90 June 09, 2024 2:13pm TAKE 1 TABLET BY MOUTH EVERY DAY IN THE MORNING Complies with drug therapy Start: 08-02-2022 End: 06-09-2024 take 1 tablet by mouth once daily in the morning Lisinopril 40 mg tablet Discontinued 1 TAB PO Every morning October 02, 2023 1:00am June 09, 2024 2:13pm FreeTextSig: TAKE 1 TABLET BY MOUTH EVERY DAY IN THE MORNING; Note: Source Status: Taking; Refills: 3; Qty: 90 Tablet; Provider: Linda Flanagan ( ) Start: 09-16-2018 take 20 mg by mouth once daily lisinopril 20 mg, Oral, Daily, Refills(s) 0, High blood pressure Start Date: 09/16/18 Status: Ordered 24 hr metoprolol succinate 100 mg extended release oral tablet (20 sources) beta-Adrenergic Taylor Start: 04-16-2024 take 1 mg by mouth once daily metoprolol succinate 100 mg ER Tab mg tab(s), Oral, Daily, Refills(s) 0, High blood pressure Start Date: 04/16/24 Status: Ordered Start: 10-02-2023 Metoprolol Tar trate 50 mg tablet Active MG PO October 02, 2023 1:00am FreeTextSig: Oral; Note: Source Status: Taking; Qty: 180 Tablet; Provider: Linda Flanagan ( ) Complies with drug therapy Start: 10-02-2023 Metoprolol Tar trate Active MG [...] 1 capsule by mouth once daily Omeprazole 40 mg capsule,delayed release(DR/EC) Active 0 .ROUTE .COMPLEX 90 March 23, 2024 3:40pm TAKE 1 CAPSULE BY MOUTH EVERY DAY Complies with drug therapy Start: 10-02-2023 End: 03-23-2024 take 1 capsule by mouth once daily Omeprazole 40 mg capsule,delayed release(DR/EC) Discontinued 1 CAP PO Daily October 02, [...] 3350 17 gram packet as needed. Active Semaglutide (1 source) Start: 03-31-2025 Semaglutide (Ozempic) 0.25 mg or 0.5 mg (2 mg/3 mL) pen injector Active 0.5 MG SUBCUT every week March 31, 2025 12:00am for 4 weeks Complies with drug therapy spironolactone 25 mg oral tablet (8 sources) Aldosterone Antagonist Start: 10-02-2023 take 1 tablet by mouth twice daily Spironolactone 25 mg tablet Active 25 MG PO Twice daily October 02, 2023 1:00am FreeTextSig: twice a day; Note: Source Status: Taking; Provider: Linda Flanagan ( ) Complies with drug therapy Spironolactone 2 5 MG twice a day Active tadalafil 5 mg oral tablet (20 sources) Phosphodiesterase 5 Inhibitor Start: 03-23-2024 End: 04-14-2025 take 1 tablet by mouth once daily Tadalafil 5 mg tablet Active 0 .ROUTE .COMPLEX April 14, 2025 8:38am TAKE 1 TABLET BY MOUTH DAILY Complies with drug therapy Start: 03-23-2024 take 1 tablet by nahum th once daily Tadalafil Active 0 .ROUTE .COMPLEX March 23, 2024 3:40pm TAKE 1 TABLET BY MOUTH DAILY Start: 10-02-2023 End: 03-23-2024 take 1 tablet by mouth once daily Tadalafil 5 mg tablet Discontinued 1 TAB PO Daily October 02, 2023 1:00am March 23, 2024 3:40pm FreeTextSig: TAKE ONE TABLET BY MOUTH DAILY; Note: Source Status: Taking; Refills: 3; Qty: 90 Tablet; Provider: Linda Flanagan ( ) Start: 09-16-2018 Cialis 5 mg, O ral, q72hr, Refills(s) 0, Erectile dysfunction Start Date: 09/16/18 Status: Ordered Completed/Discontinued Medications Medication Drug Class(es) Dates Sig (Normalized) Sig (Original) glipiZIDE 10 mg oral tablet (20 sources) [...] Date: 04/16/24 Status: Ordered Start: 12-31-2023 End: 03-30-2025 take 1 tablet by mouth once daily Glipizide 10 mg tablet Discontinued 0 .ROUTE .COMPLEX March 30, 2025 8:20am March 30, 2025 3:45pm TAKE 1 TABLET BY MOUTH EVERY DAY Start: 10-03-2023 End: 12-31-2023 take 1 tablet by mouth once daily Glipizide 10 mg tablet Discontinued 10 MG PO Daily October 03, 2023 1:00am December 31, 2023 3:39pm Start: 10-02-2023 End: 11-24-2024 take 1 tablet by mouth once daily Glipizide 5 mg tablet Discontinued 1 TAB PO Daily October 02, 2023 1:00am October 03, 2023 10:27pm FreeTextSig: TAKE 1 TABLET BY MOUTH EVERY DAY; Note: Source Status: Start; Refills: 3; Qty: 90 Tablet; Provider: Linda Flnaagan ( ) glipiZIDE Active 1 ml methylPREDNISolone acetate 40 mg/ml injection (4 sources) Corticosteroid Start: 10-26-2024 End: 10-26-2024 methylPREDNISolone acetate (DEPO-Medrol) injection 40 mg Start: [...] Coronary arteriosclerosis; Translations: [Atherosclerotic heart disease of pala coronary artery without angina pectoris] Onset: 12-26-2021 Chronic Diabetes mellitus with complications (12 sources) Hyperglycemia due to type 2 diabetes [...] cysts] Onset: 05-28-2024 Chronic Hyperplasia of prostate (13 sources) Benign prostatic hypertrophy without outflow obstruction; [...] Test Name Value Interpretation Reference Range Facility HbA1c HPLC (Bld) [Mass fract ion]Ordered By: Jacob Mckeon on 03-30-2025 HbA1c (Bld) [Mass fraction] 7.6 % Cholesterol in LDL Calc [Mas s/Vol]Ordered By: Marcelino Stern on 01-28-2025 Cholesterol in LDL [Mass/Vol] 58.0 mg/dL Comment on above: <100 mg/dl [id number] 0-129 mg/dl NEAR OR ABOVE [id number] mg/dl BORDERLINE [id number] mg/dl HIGH>190 mg/dl VERY HIGH Cholesterol in VLDL Calc [Ma ss/Vol]Ordered By: Marcelino Stern on 01-28-2025 Cholesterol in VLDL [Mass/Vol] 13.0 mg/dL Laboratory - Chemistry and C hemistry - challengeOrdered By: Marcelino Stern on 01-28-2025 Cholesterol [Mass/Vol] 115 mg/dL <=200 Cholesterol in HDL [Mass/Vol] 44 mg/dL 40-60 Comment on above: > or =60 mg/dl - LOW CARDIOVASCULAR RISK<40 mg/dl - HIGH CARDIOVASCULAR RISK Triglyceride [Mass/Vol] 65 mg/dL <=150 Office Visiton 01-28-2025 Follow-up visit [id number] Oswald Ochoa 1955 M Date Provider Department Center 01/28/2025 Juvenal-KATIA MCDANIEL CARD [facility] Family History Problem Relation Age of Onset COPD Mother Childhood respiratory disease Father Family Status - Relation Status Age at Mother Father Level of Service:70013 [place] OFFICE/OUTPATIENT ESTABLISHED LOW MDM 20 MIN Normal [facility] Serum or plasma total choles terol/high density lipoprotein (HDL) cholesterol mass ratOrdered By: Marcelino Stern on 01-28-2025 Cholesterol.total/ Cholesterol in HDL [Mass ratio] 2.6 {ratio} Comment on above: 3.3 - 4.4 LOW RISK4. 4 - 7.1 AVERAGE RISK7.1 - 11.0 MODERATE RISK>11.0 HIGH RISK Ambulatory Visit Summaryon 0 11-20-2024 Ambulatory Visit [...] Follow Up with ISRAEL RUFFIN, Shade Robison, JYOTI When: Where: [address] [place] [address]- Medications What How Much When Instructions Unchanged [...] including vitamins, herbs, eye drops, creams, and jdiy-yef-ikgjqto medicines. ??? Any problems you or family [...] energy drin (more content not included)... Normal [facility] Ambulatory Visit Summary Ambulatory Visit Summary [...] Follow Up with ISRAEL RUFFIN, Shade Robison, JYOTI When: Where: [address] [place], [place] [id number]- Medications What How Much When Instructions Unchanged [...] including vitamins, herbs, eye drops, creams, and ldom-zjs-zlujdju medicines. ??? Any problems you or family [...] energy drin (more content not included)... 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 CABG x 5. Hx of open heart surgery. Elevated risk for perio complications, Plavix and asa will need held prior to ESWL. cardiology will need to be involved with this. Follow-up With When Contact Information ISRAEL RUFFIN, Shade Robison, URL [address] [place] [address]- Additional Instructions: Schedule L ESWL Patient Education [...] (05/01/2024), Colonosc (more content not included)... Normal [facility] Comment on above: Result Comment: Elec tronically Signed By: Shade WOOD MD\.br\Date and Time Signed: 11/20/24 11:18 EDT\.br\Electronically Co-Signed By: Brandy Stearns\Date and Time Co-Signed: 11/20/24 11:15 EDT No Panel Informationon 10-26 Kehinde Gonzalez NP 11:14 AM L Inj/Asp: L knee on 10/26/2024 11:12 AM Indications: pain Details: 21 G needle, anterolateral approach Medications: 40 mg methylPREDNISolone acetate 40 MG/ML Outcome: tolerated well, no immediate complications Site was cleaned with isopropyl alcohol Procedure, treatment alternatives, risks and benefits explained, specific risks discussed. Consent was given by the patient. 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 Reminderson 10-22-2024 Reminders Reminders From: Tiarra Philippe To: EU - Recalls Wood; Sent: 05/28/2024 10:47:46 EDT Show up: 08/29/2024 10:47:00 EST Subject: renal US, KUB/PSA prior to October 2024 Due Date/Time: 09/21/2024 10:47:00 EST Reminder/Recall Patient needs sched for renal US, PSA/KUB prior to October 2024 appt. He would like [facility] Order faxed to [facility]. Will monitor All results in chart for review. Normal [facility] 37on 10-08-2024 37 *We will switch meto prolol to carvedilol. Normal [facility] Office Visiton 10-08-2024 Follow-up visit [id number] Oswald Ochoa Marcus 1955 M Date Provider Department Center 10/08/2024 MARCELINO MURRAY SOHAIL Rivas No family history on file Level of Service:[address]2401 [place] OFFICE/OUTPATIENT ESTABLISHED MOD MDM 30 MIN Reason for Visit and Comments: Coronary Artery Disease [187] Normal [facility] CNOVon 07-06-2024 CNOV Office Visit (GASTNO ) OSWALD OCHOA ([id number]) 1955 M Date Time Provider Department 07/06/24 [...] MORNING *DO NOT CRUSH OR CHEW* - Hrpoleqiuxvym-Xujhksbw-Fppeh n (MULTIVITAMIN 50 PLUS) tab; Take 1 tablet by mouth every morning. - omeprazole (PRILOSEC) 40 mg capsule; Take 40 mg by mouth once daily. - polyethylene glycol (more content not included)... Normal [facility] HISTORY PHYSICALon HISTORY PHYSICAL HNO ID: [id number] Author: JUSTUS BRAXTON MD Service: ? Author [...] MORNING *DO NOT CRUSH OR CHEW* - Poaqeoijysdyq-Iniwevba-Uckhe n (MULTIVITAMIN 50 PLUS) tab; Take 1 [...] status pos (more content not included)... Normal [facility] Ambulatory Visit Summaryon 1 Ambulatory Visit Summary [...] RUFFIN, Shade Robison Where: [facility] [id number]- Medications What How Much When Instructions Unchanged [...] for choosing us for your care. Normal [facility] Ambulatory Visit Summary Ambulatory Visit Summary [...] RUFFIN, Shade Robison Where: [facility] [id number] Medications What How Much When Instructions Unchanged [...] for choosing us for your care. Giuseppe [facility] Shai 05-27-2024 KYLE Telephone (MARQUISEPATIENCE) OSWALD OCHOA ([id number]) 1955 M Date Time Provider Department 05/27/24 [...] OV with Dr. Braxton on 07/06/24 at [facility] at 3:30 pm per message below. Allergies As of Date: 05/27/2024 (Not on File) Date Reviewed: Never Reviewed Reason for Visit: Appointment [186] Problem List As Of Date: 05/27/2024 (None) Encounter Status:Closed by ANGEL RODRIGUEZ on 05/29/24 Normal [facility] CT Chest w/ Contraston 05-22 CT Chest [...] Signed by: Armaan Manzano MD Transcribed by: DP Technologist: TRISTIAN Technical Comments GFR (mL/min/1/73m2) >60 Contrast: Isovue 300 Contrast amount in ml's: 100 Normal [facility] CHEMISTRYOrdered By: SYSTEM SYSTEM on 05-21-2024 Creatinine [Mass/Vol] 0.9 mg/dL Normal 0.5 - 1.3 mg/dL Remisol Chem eGFR 92 mL/min/1.73 m2 Normal >=59mL/min /1.73 m2 Remisol Chem Creatinineon 05-21-2024 Creatinine [Mass/Vol] 0.9 mg/dL Normal 0.5-1.3 [facility] Comment on above: Performed By: #### 2 [id number] #### [facility] [address] [place] [address] eGFRon 05-21-2024 eGFR 92 mL/min/1.73 m2 Normal >=59 [facility] Comment on above: Performed By: #### 1 [id number] #### [facility] [address] [place] [address] Reminderson 05-08-2024 Reminders Reminders From: Elizabeth Rangel To: [facility] - Reminders/Recalls; Sent: 05/08/2024 13:47:56 EDT Show up: 04/01/2029 13:47:00 EDT Subject: Ambulatory Reminder- colonoscopy 5 year recall Due Date/Time: 05/01/2029 13:47:00 EDT Reminder/Recall Colonoscopy Dr Mooney- 05/01/2024 5 year recall Normal [facility] Result Letter Officeon 05-08 Result Letter Office Result Letter Office May 08, 2024 OSWALD [address]cconnell[address] [place] [address] : 1955 Below is a summary of [...] letter prior to your next due date. [facility] [phone] Normal [facility] Surgical Pathology Reporton 05-07-2024 Surgical Pathology Report [facility] [place] [address]- Surgical Pathology Report Collected Date/Time: 05/01/2024 09:47 [...] is entirely submitted in one cassette. (DC) DC:[facility] Surgical Pathology Report Collected Date/Time: 05/01/2024 09:47 [...] characteristics were determined by the [facility]. They have not been cleared or approved by the US Food and Drug Administration. The FDA has determined that such clearance or approval is not necessary. These tests are used for clinical purposes. They should not be regarded as investigational or for research. Appropriate positive and negative controls are performed and are acceptable. Normal [facility] Comment on above: Performed By: #### 4 [id number] #### [facility] [address] [place] [address] Main OR Intraoperative Recor don 05-05-2024 Main OR Intraoperative Record Main OR Intraoperative Record IntraOp Document Type FT Summary Primary Physician: Alissa Mooney MD Finalized Date/Time: 05/05/24 08:07:07 Pt. Name: OSWALD OCHOA/Sex: 1955 Male Med Rec #: [id number] Physician: Alissa Mooney MD Financial #: [id number] Pt. Type: O Room/Bed: / Admit/Disch: 05/01/24 [...] Anne RN, Joyce Sanchez Role Performed Anesthesiologist Toaster Element Repairer - Primary Staff - Other General Internal Medicine Doctor Time In 05/01/24 09:39:00 05/01/24 09:39:00 05/01/24 09:59:00 Time Out 05/01/24 09:45:00 05/01/24 10:04:00 05/01/24 10:04:00 Procedure EGD AND COLONOSCOPY(.) EGD AND COLONOSCOPY(.) EGD AND COLONOSCOPY(.) Comments Dr. Oneal supervising help in room case Last Modified By: Hamilton Anne RN, RN, Morgan E Souter RN, Morgan E 05/01/24 10:04:35 05/01/24 10:04:35 05/01/24 10:04:35 Entry 4 Entry 5 Entry 6 Case Attendee Gunner RODRIGES, aMdisyn Mooney MD, Alissa Oneal MD, Randell Guillory Role Performed Scrub - Primary Surgeon - Primary Anesthesiologist of Record Time In 05/01/24 09:39:00 05/01/24 09:39:00 05/01/24 09:45:00 Time Out 05/01/24 10:04:00 05/01/24 10:04:00 05/01/24 10:04:00 Procedure EGD AND COLONOSCOPY(.) EGD AND COLONOSCOPY(.) EGD AND COLONOSCOPY(.) Comments Last Modified By: Hamilton Anne RN, RN, Hamilton Nevarez RN 05/01/24 10:04:35 05/01/24 [...] Class 2 - Clean-Contaminated Last Modified By: Haimlton Anne RN 05/01/24 10:04:40 General Case Data [...] 09:43:05 Post-Care Samuel (more content not included)... [facility] Provider Letteron 05-05-2024 Provider Letter Provider Letter May 05, 2024 OSWALD Mcconnell[address] [place] [address] : 1955 Dear Oswald, We have been trying to reach you with no success. It is important that you return our call regarding further orders upon receiving this letter. Also, at the time of your call, please provide us with your current information. Thank you for your prompt attention to this matter. Sincerely, [facility] Discharge Instructionson Discharge Instructions Discharge Instructions [...] 10 mg ER Tab) lactobacillus rhamnosus GG ([facility] [email or web address] [facility]) latanoprost ophthalmic (latanoprost 0.005% preservative-free ophthalmic [...] Follow Up with Vinicio RUFFIN, PRIYANKA Kuhn, [facility] When: Comments: Office will call Date and Time of Follow-up Appt. Where: [address], [address] [place] [phone] Medications What How Much When Instructions Next Dose Unchanged aspirin (aspirin 81 mg Oral EC Tab) By Mouth Every day Unchanged clopidogrel (Plavix 75 mg Tab) By Mouth Every day Unchanged furosemide (Lasix 20 mg Tab) By Mouth Every day Unchanged glipiZIDE (glipiZIDE 10 mg ER Tab) By Mouth Every day Unchanged lactobacillus rhamnosus GG ([facility] [employer]) By Mouth Every day Unchanged latanoprost ophthalmic [...] unsweetened, w/added ascorbic acid 1 cup 0.5 [place] 1 cup 0.7 Vegetables Cooked Green beans 1 cup 4.0 Carrots 1/2 cup sliced (more content not included)... Normal [facility] Comment on above: Result Comment: Elec [...] GERD and polyps -EGD and colonoscopy Normal [facility] Main OR PACU II Recordon Main OR PACU II Record Main OR PACU II Record PACU Phase II Document Type FT Summary Primary Physician: Alissa Mooney MD Finalized Date/Time: 05/01/24 13:09:40 Pt. Name: DONOSWALD/Sex: 1955 Male Med Rec #: [id number] Physician: Alissa Mooney MD Financial #: [id number] Pt. Type: O Room/Bed: / Admit/Disch: 05/01/24 [...] 13:04 Tova Buck RN 05/01/24 13:09 Normal [facility] Main OR Preoperative Recordo n 05-01-2024 Main OR Preoperative Record Main OR Preoperative Record Holding Area Document Type FT Summary Primary Physician: Alissa Mooney MD Finalized Date/Time: 05/01/24 08:37:09 Pt. Name: DONOSWALD/Sex: 1955 Male Med Rec #: [id number] Physician: Alissa Mooney MD Financial #: [id number] Pt. Type: O Room/Bed: / Admit/Disch: 05/01/24 [...] By: Makayla Yi RN 05/01/24 08:37 Normal [facility] Operative Reporton Operative Report Operative Report Patient: OSWALD OCHOA Age: 69 years Sex: Male : 1955 Associated Diagnoses: None Author: Alissa Mooney MD Pre-Procedure Procedure Date 05/01/2024 10:06:00 . Procedure Type: Colonoscopy with removal of tumor(s), polyp(s), or other lesion(s) by cold snare technique. Procedure provider Performed by Alissa Mooney MD. Current history and physical Documented on chart. Colonoscopy ([id number]).. Past Medical History No active or resolved past medical history items have been selected or recorded.. Family History Heart disease Father . Procedure History Colonoscopy ([id number]).. Colorectal neoplasm risk assessment High risk Previous [...] 3. Diverticulosis throughout the whole colon 4. Owez-ya-enqi surgical anastomosis in the sigmoid colon 5. Internal hemorrhoids 6. Normal terminal ileum Images Procedure images: [email or web address]_hd_video_2024_10_[id number]_ _[id number].jpg [id number]_hd_video_2023__T09_ _[id number].jpg Rec1_hd_video_2023__T09_ _[id number].jpg Rec1_hd_video_4__T09_ [id number]_[id number].jpg Rec1_hd_video_4__T09_ _[id number].jpg Rec1_hd_video_4__T09_ 08_11_[id number].jpg Rec1_hd_video_2023__T09_ 10_06_002.jpg Rec1_hd_video_2023__T09_ 10_[id number].jpg Rec1_hd_video_2023__T09_ 10_[id number].jpg Rec1_hd_video_2023__T09_ 11_[id number].jpg . Post-Procedure [...] hours. Education and Follow-up: Counseled: Patient, Family. [facility] Comment on above: Result Comment: Elec tronically Signed By: Vinicio RUFFIN, Alissa Cuello.br\Date and Time Signed: 05/01/24 10:08 EDT Other Comment: Sadia ludwig Attachment - attachment storage system not supported [id number] Can be viewed in source system Missing Attachment - attachment storage system not supported [id number] Can be viewed in source system Missing Attachment - attachment storage system not supported [id number] Can be viewed in source system Missing Attachment - attachment storage system not supported [id number] Can be viewed in source system Missing Attachment - attachment storage system not supported [id number] Can be viewed in source system Missing Attachment - attachment storage system not supported [id number] Can be viewed in source system Missing Attachment - attachment storage system not supported [id number] Can be viewed in source system Missing Attachment - attachment storage system not supported [id number] Can be viewed in source system Missing Attachment - attachment storage system not supported [id number] Can be viewed in source system Missing Attachment - attachment storage system not supported [id number] Can be viewed in source system Operative [...] mg, Oral, q72hr, Refills(s) 0, Erectile dysfunction [facility]: Oral, Daily, Refill(s) 0, Prophylaxis [...] pylori. 3. Normal duodenum. Images Procedure images: Rec_hd_video_2023___ [id number].jpg Rec_hd_video___ [id number].jpg Rec_hd_video___ [id number].jpg Rec_hd_video__08_ [id number].jpg Rec_hd_video__09_ [id number].jpg Rec1_hd_video_2023_10_04T09_ [id number].jpg . Post-Procedure Complications: none. Estimated blood loss: minimal. Specimens: sent to pathology. Devices/ implants: none left in place. 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 Hiatal hernia Gastropathy Recommendations: -Resume previous diet -Resume home medications -Await pathology results, follow in GI clinic in 1-2 after discharge [facility] Comment on above: Result Comment: Elec tronically Signed By: Vinicio RUFFIN, Alissa Nunez\.br\Date and Time Signed: 05/01/24 10:06 EDT Other Comment: Sadia ludwig Attachment - attachment storage system not supported [id number] Can be viewed in source system Missing Attachment - attachment storage system not supported [id number] Can be viewed in source system Missing Attachment - attachment storage system not supported [id number] Can be viewed in source system Missing Attachment - attachment storage system not supported [id number] Can be viewed in source system Missing Attachment - attachment storage system not supported [id number] Can be viewed in source system Missing Attachment - attachment storage system not supported [id number] Can be viewed in source system Office Visiton 04-27-2024 Follow-up visit [id number] Oswald Ochoa 1955 M Date Provider Department Center 04/27/2024 3848-ALISSA GALINDO [facility]ARD [facility] No family history on file Level of Service:42452 [place] OFFICE/OUTPATIENT ESTABLISHED LOW MDM 20 MIN Normal [facility] Ambulatory Visit Summaryon 0 04-16-2024 [...] 10 mg ER Tab) lactobacillus rhamnosus GG ([employer]) latanoprost ophthalmic (latanoprost 0.005% preservative-free ophthalmic solution) lisinopril metoprolol (metoprolol succinate 100 mg ER Tab) omeprazole tadalafil (Cialis) Procedures Performed Colonoscopy. Discharge Vitals Heart Rate (Peripheral) 51 Blood Pressure 162/89 Height 172.7 cm Height 68 in Weight 110.9 kg Weight 243.98 lb BMI 37.18 What to do next Scheduled Follow-Up Appointments Saturday 9:15 AM EDT Where: [facility] Medications What How Much [...] questions or concerns Unchanged lactobacillus rhamnosus GG ([employer]) By Mouth Every day Contact prescribing physician [...] for choosing us for your care. Normal [facility] Office/Clin ic Noteon 04-16-2024 Gastroenterology [...] Oral, Daily Cialis, 5 mg, Oral, q72hr [facility], Oral, Daily glipiZIDE 10 mg ER Tab, [...] influenza virus vaccine, inactivated 05/04/2016 Recorded Normal [facility] Comment on above: Result Comment: Elec tronically Signed By: Vinicio RUFFIN, Alissa Nunez\.br\Date and Time Signed: 04/16/24 10:43 EDT PROF CHEM 8 (BAS METB)on Anion gap [Moles/Vol] 16.3 mmol/L Normal [facility] Comment on above: Performed By: #### B MP ####[facility] [address] [address]Dr. Mely Mayes Calcium [Mass/Vol] 9.4 mg/dL Normal 8.5-10.1 [facility] Comment on above: Performed By: #### B MP ####[facility] [address] [address]Dr. Mely Mayes Chloride [Moles/Vol] 98 mmol/L Normal 98-107 [facility] Comment on above: Performed By: #### B MP ####[facility] [address] [address]Dr. Mely Mayes CO2 [Moles/Vol] 26.0 mmol/L Normal 21.0-32.0 [facility] Comment on above: Performed By: #### B MP ####[facility] [address] [place], [place] [address]Dr. Mely Mayes Creatinine [Mass/Vol] 1.36 mg/dL Critically high 0.70-1.30 [facility] Comment on above: Performed By: #### B MP ####[facility] [address] [place], [place] [address]Dr. Leigh Anndayana Gerber EGFR-AF BRUNEIAN >60 Normal >=60 [facility] Comment on above: Performed By: #### B MP ####[facility] [address] [place], [place] [address]Dr. Mely Mayes EGFR-NON AF BRUNEIAN 52 mL/min/1.73m2 Critically low >=60 [facility] Comment on above: Performed By: #### B MP ####[facility] [address] [place], [place] [address]Dr. Mely Mayes Glucose [Mass/Vol] 211 mg/dL Critically high 74-106 T [facility] Comment on above: Performed By: #### B MP ####[facility] [address] [place], [place] [address]Dr. Mely Mayes Potassium [Moles/Vol] 4.3 mmol/L Normal 3.5-5.1 [facility] Comment on above: Performed By: #### B MP ####[facility] [address] [place], [place] [address]Dr. Mely Mayes Sodium [Moles/Vol] 136 mmol/L Normal 136-145 [facility] Comment on above: Performed By: #### B MP ####[facility] [address] [place], [place] [address]Dr. Mely Mayes Urea nitrogen [Mass/Vol] 10.0 mg/dL Normal 7.0-18.0 [facility] Comment on above: Performed By: #### B MP ####[facility] [address] [place], [place] [address]Dr. Mely Mayes Urea nitrogen/Creatinin e [Mass ratio] 7.4 mg/mg Normal [facility] Comment on above: Performed By: #### B ####[facility] [address] [place], [place] [address]Xy. Mely Mayes ECHOCARDIO M/2D COMPLETEon 0 11-20-2022 ECHOCARDIO M/2D COMPLETE Patient: OSWALD OCHOA Exam Date: 11/20/2022 : 1955 Gender:M Ordering : MARCELINO [facility] Admission #: [id number] Family : Order #: [id number] CLICK HERE TO VIEW EXAM ECHOCARDIOGRAM REPORT [...] Katia Mcdaniel M.D. on 11/21/2022 at 08:25 [facility] STRESS/REST MULTIon 11-20 NM STRESS/REST MULTI Patient: OSWALD OHCOA Exam Date: 11/20/2022 : 1955 Gender:M Ordering : MARCELINO [facility]ERN [facility] Admission #: [id number] Family : Order #: [id number] CLICK HERE TO VIEW EXAM RADIOLOGY REPORT [...] M.D. on 11/22/2022 at 16:12 Normal [facility] BNPon 11-12-2022 Natriuretic peptide B (Bld) [Mass/Vol] 207.0 pg/mL Normal <=900.0 [facility] Comment on above: Performed By: #### L IPID, BNP, CMP #### [facility] [address] [place] [address] Dr. Mely Mayes LIPID PROFILEon 11-12-2022 CHOL-HDL RATIO NORM SEE BELOW Normal [facility] Comment on above: Result Comment: 3.3 - 4.4 LOW RISK 4.4 - 7.1 AVERAGE RISK 7.1 - 11.0 MODERATE RISK >11.0 HIGH RISK Performed By: #### L IPID, BNP, CMP #### [facility] [address] [place] [address] Dr. Mely Mayes Cholesterol [Mass/Vol] 166 mg/dL Normal <=200 [facility] Comment on above: Performed By: #### L IPID, BNP, CMP #### [facility] [address] [place] [address] Dr. Mely Mayes Cholesterol in HDL [Mass/Vol] 38 mg/dL Critically low 40-60 [facility] Comment on above: Performed By: #### L IPID, BNP, CMP #### [facility] [address] [place] [address] Dr. Mely Mayes Cholesterol in LDL [Mass/Vol] 106.2 mg/dL Normal [facility] Comment on above: Performed By: #### L IPID, BNP, CMP #### [facility] [address] [place] [address] Dr. Mely Mayes Cholesterol.total/ Cholesterol in HDL [Mass ratio] 4.4 {ratio} Normal [facility] Comment on above: Performed By: #### L IPID, BNP, CMP #### [facility] [address] [place] [address] Dr. Mely Mayes HDL NORMAL > or = 60 mg/dl - LO W CARDIOVASCULAR RISK <40 mg/dl - HIGH CARDIOVASCULAR RISK Normal [facility] Comment on above: Performed By: #### L IPID, BNP, CMP #### [facility] [address] [place] [address] Dr. Mely Mayes LDL CALC NORMAL SEE BELOW Normal [facility] Comment on above: Result Comment: <100 mg/dl OPTIMAL 100 - 129 mg/dl NEAR OR ABOVE OPTIMAL 130 - 159 mg/dl BORDERLINE HIGH 160 - 189 mg/dl HIGH >190 mg/dl VERY HIGH Performed By: #### L IPID, BNP, CMP #### [facility] [address] [place] [address] Dr. Mely Mayes Triglyceride [Mass/Vol] 109 mg/dL Normal <=150 [facility] Comment on above: Performed By: #### L IPID, BNP, CMP #### [facility] [address] [place] [address] Dr. Mely Mayes VLDL CALC 21.8 mg/dL Normal [facility] Comment on above: Performed By: #### L IPID, BNP, CMP #### [facility] [address] [address] [address] Mely Mayes PROF 14(COMP METB)on 023 Albumin [Mass/Vol] 4.1 g/dL Normal 3.4-5.0 [facility] Comment on above: Performed By: #### L IPID, BNP, CMP #### [facility] [address] [place] [address] Dr. Mely Mayes Albumin/Globulin [Mass ratio] 1.1 {ratio} Normal [facility] Comment on above: Performed By: #### L IPID, BNP, CMP #### [facility] [address] [place] [address] Dr. Mely Mayes ALP [Catalytic activity/Vol] 79 U/L Normal 46-116 [facility] Comment on above: Performed By: #### L IPID, BNP, CMP #### [facility] [address] [place] [address] Dr. Mely Mayes ALT [Catalytic activity/Vol] 36 U/L Normal 16-63 [facility] Comment on above: Performed By: #### L IPID, BNP, CMP #### [facility] [address] [place] [address] Dr. Mely Mayes Anion gap [Moles/Vol] 13.7 mmol/L Normal [facility] Comment on above: Performed By: #### L IPID, BNP, CMP #### [facility] [address] [place] [address] Dr. Mely Mayes AST [Catalytic activity/Vol] 18 U/L Normal 15-37 [facility] Comment on above: Performed By: #### L IPID, BNP, CMP #### [facility] [address] [place] [address] Dr. Mely Mayes Bilirubin [Mass/Vol] 0.6 mg/dL Normal 0.2-1.0 [facility] Comment on above: Performed By: #### L IPID, BNP, CMP #### [facility] [address] [place] [address] Dr. Mely Mayes Calcium [Mass/Vol] 10.3 mg/dL Critically high 8.5-10.1 [facility] Comment on above: Performed By: #### L IPID, BNP, CMP #### [facility] [address] [place] [address] Dr. Mely Mayes Chloride [Moles/Vol] 101 mmol/L Normal 98-107 [facility] Comment on above: Performed By: #### L IPID, BNP, CMP #### [facility] [address] [place] [address] Dr. Mely Mayes CO2 [Moles/Vol] 27.5 mmol/L Normal 21.0-32.0 [facility] Comment on above: Performed By: #### L IPID, BNP, CMP #### [facility] [address] [place] [address] Dr. eMly Mayes Creatinine [Mass/Vol] 1.17 mg/dL Normal 0.70-1.30 [facility] Comment on above: Performed By: #### L IPID, BNP, CMP #### [facility] [address] [place] [address] Dr. Mely Mayes EGFR-AF BRUNEIAN >60 Normal >=60 [facility] Comment on above: Performed By: #### L IPID, BNP, CMP #### [facility] [address] [place] [address] Dr. Mely Mayes EGFR-NON AF BRUNEIAN >60 Normal >=60 [facility] Comment on above: Performed By: #### L IPID, BNP, CMP #### [facility] [address] [place] [address] Dr. Mely Mayes Globulin (S) [Mass/Vol] 3.7 g/dL Normal [facility] Comment on above: Performed By: #### L IPID, BNP, CMP #### [facility] [address] [address] [address] Mely Mayes Glucose [Mass/Vol] 168 mg/dL Critically high 74-106 T [facility] Comment on above: Performed By: #### L IPID, BNP, CMP #### [facility] [address] [place] [address] Dr. Mely Mayes Potassium [Moles/Vol] 4.2 mmol/L Normal 3.5-5.1 [facility] Comment on above: Performed By: #### L IPID, BNP, CMP #### [facility] [address] [address] [address] Mely Mayes Protein [Mass/Vol] 7.8 g/dL Normal 6.4-8.2 [facility] Comment on above: Performed By: #### L IPID, BNP, CMP #### [facility] [address] [place] [address] Dr. Mely Mayes Sodium [Moles/Vol] 138 mmol/L Normal 136-145 [facility] Comment on above: Performed By: #### L IPID, BNP, CMP #### [facility] [address] [place] [address] Dr. Mely Mayes Urea nitrogen [Mass/Vol] 10.0 mg/dL Normal 7.0-18.0 [facility] Comment on above: Performed By: #### L IPID, BNP, CMP #### [facility] [address] [place] [address] Dr. Mely Mayes Urea nitrogen/Creatinin e [Mass ratio] 8.5 mg/mg Normal [facility] Comment on above: Performed By: #### L IPID, BNP, CMP #### [facility] [address] [place] [address] Dr. Mely Mayes PROF CHEM 8 (BAS METB)on Anion gap [Moles/Vol] 14.7 mmol/L Normal [facility] Comment on above: Performed By: #### B MP ####[facility] [address] [address]Dr. Mely Mayes Calcium [Mass/Vol] 9.4 mg/dL Normal 8.5-10.1 [facility] Comment on above: Performed By: #### B MP ####[facility] [address] [address]Dr. Mely Mayes Chloride [Moles/Vol] 99 mmol/L Normal 98-107 [facility] Comment on above: Performed By: #### B MP ####[facility] [address] [address]Dr. Mely Mayes CO2 [Moles/Vol] 23.5 mmol/L Normal 21.0-32.0 [facility] Comment on above: Performed By: #### B MP ####[facility] [address] [place], [place] [address]Dr. Mely Mayes Creatinine [Mass/Vol] 1.53 mg/dL Critically high 0.70-1.30 [facility] Comment on above: Performed By: #### B MP ####[facility] [address] [place], [place] [address]Dr. Mely Mayes EGFR-AF BRUNEIAN 55 mL/min/1.73m2 Critically low >=60 [facility] Comment on above: Performed By: #### B MP ####[facility] [address] [place], [place] [address]Dr. Mely Mayes EGFR-NON AF BRUNEIAN 45 mL/min/1.73m2 Critically low >=60 [facility] Comment on above: Performed By: #### B MP ####[facility] [address] [address]Dr. Mely Mayes Glucose [Mass/Vol] 258 mg/dL Critically high 74-106 [facility] Comment on above: Performed By: #### B MP ####[facility] [address] [place], [place] [address]Dr. Mely Mayes Potassium [Moles/Vol] 4.2 mmol/L Normal 3.5-5.1 [facility] Comment on above: Performed By: #### B MP ####[facility] [address] [address]Dr. Mely Mayes Sodium [Moles/Vol] 133 mmol/L Critically low 136-145 Th e [facility] Comment on above: Performed By: #### B MP ####[facility] [address] [address]Dr. Mely Mayes Urea nitrogen [Mass/Vol] 11.0 mg/dL Normal 7.0-18.0 [facility] Comment on above: Performed By: #### B MP ####[facility] [address] [place] [address]Dr. Mely Mayes Urea nitrogen/Creatinin e [Mass ratio] 7.2 mg/mg Normal [facility] Comment on above: Performed By: #### B MP ####[facility] [address] [address]DrJonathan Mayes CREATININEon 08-24-2022 Creatinine [Mass/Vol] 1.02 mg/dL Normal 0.70-1.30 [facility] Comment on above: Performed By: #### C GRAEME #### [facility] [address] [place] [address] Dr. Mely Mayes EGFR-AF BRUNEIAN >60 Normal >=60 [facility] Comment on above: Performed By: #### C GRAEME #### [facility] [address] [place] [address] Dr. Mely Mayes EGFR-NON AF BRUNEIAN >60 Normal >=60 [facility] Comment on above: Performed By: #### C GRAEME #### [facility] [address] [place] [address] ABD/PELV W CONon [...] CHRIS VITAL Date: 2022-08-24 09:22 Normal [facility] GLYCOHEMOGLOBIN A1Con 2022 ADA RECOMMENDATION SEE BELOW Normal [facility] Comment on above: Result Comment: ADA RECOMMENDED LIMIT 4.0 - 6.0 ADA THERAPEUTIC TARGET < 7.0 ACTION SUGGESTED > 7.0 Performed By: #### D ATA1C #### [facility] [address] [address] [address] Mely Mayes Glucose [Mass/Vol] 163 mg/dL Normal [facility] Comment on above: Performed By: #### D ATA1C #### [facility] [address] [place], [place] [address] Dr. Mely Mayes HbA1c (Bld) [Mass fraction] 7.3 % Critically high 4.5-6.2 [facility] Comment on above: Performed By: #### D ATA1C #### [facility] [address] [address] [address] Mely Mayes COVID/FLU/RSV RT-PCRon 07-25 SARS-CoV-2 (COVID-19) RNA ESTEBAN+probe Ql (Unsp spec) Negative [facility] [employer] Other COVID/FLU/RSV RT-PCR Negative [employer] [facility] [employer] Other Quick Strepon 07-25-2022 S. pyogenes Org specific cx Ql (Throat) Negative [employer] [facility] [employer] Other Quick Strep [employer] [facility] [employer] Other PROF CHEM 8 (BAS METB)on Anion gap [Moles/Vol] 11.0 mmol/L Normal [facility] Comment on above: Performed By: #### B MP ####[facility] [address] [address]DrJonathan Mayes Calcium [Mass/Vol] 9.2 mg/dL Normal 8.5-10.1 [facility] Comment on above: Performed By: #### B MP ####[facility] [address] [place], [place] [address]Dr. Mely Mayes Chloride [Moles/Vol] 102 mmol/L Normal 98-107 [facility] Comment on above: Performed By: #### B MP ####[facility] [address] [place] [address]DrJonathan Mayes CO2 [Moles/Vol] 27.7 mmol/L Normal 21.0-32.0 [facility] Comment on above: Performed By: #### B MP ####[facility] [address] [address]Dr. Mely Mayes Creatinine [Mass/Vol] 1.00 mg/dL Normal 0.70-1.30 [facility] Comment on above: Performed By: #### B MP ####[facility] [address] [place], [place] [address]Dr. Mely Mayes EGFR-AF BRUNEIAN >60 Normal >=60 [facility] Comment on above: Performed By: #### B MP ####[facility] [address] [id number]. Mely Mayes EGFR-NON AF BRUNEIAN >60 Normal >=60 [facility] Comment on above: Performed By: #### B MP ####[facility] [address] [id number]. Mely Mayes Glucose [Mass/Vol] 139 mg/dL Critically high 74-106 T [facility] Comment on above: Performed By: #### B MP ####[facility] [address] [id number]. Mely Mayes Potassium [Moles/Vol] 3.7 mmol/L Normal 3.5-5.1 [facility] Comment on above: Performed By: #### B MP ####[facility] [address] [address]Dr. Mely Mayes Sodium [Moles/Vol] 137 mmol/L Normal 136-145 [facility] Comment on above: Performed By: #### B MP ####[facility] [id number]. Mely Mayes Urea nitrogen [Mass/Vol] 10.0 mg/dL Normal 7.0-18.0 [facility] Comment on above: Performed By: #### B MP ####[facility] [address] [id number]. Mely Mayes Urea nitrogen/Creatinin e [Mass ratio] 10.0 mg/mg Normal [facility] Comment on above: Performed By: #### B MP ####[facility] [address] [id number] Mayes PROF CHEM 8 (BAS METB)on Anion gap [Moles/Vol] 10.3 mmol/L Normal [facility] Comment on above: Performed By: #### B MP #### [facility] [address] [address] [address] Mely Mayes Calcium [Mass/Vol] 9.1 mg/dL Normal 8.5-10.1 [facility] Comment on above: Performed By: #### B MP #### [facility] [address] [address] [address] Mely Mayes Chloride [Moles/Vol] 103 mmol/L Normal 98-107 [facility] Comment on above: Performed By: #### B MP #### [facility] [address] [address] [address] Mely Mayes CO2 [Moles/Vol] 25.4 mmol/L Normal 21.0-32.0 [facility] Comment on above: Performed By: #### B MP #### [facility] [address] [address] [address] Mely Mayes Creatinine [Mass/Vol] 1.06 mg/dL Normal 0.70-1.30 [facility] Comment on above: Performed By: #### B MP #### [facility] [address] [place] [address] Dr. Mely Mayes EGFR-AF BRUNEIAN >60 Normal >=60 [facility] Comment on above: Performed By: #### B MP #### [facility] [address] [address] [address] Mely Mayes EGFR-NON AF BRUNEIAN >60 Normal >=60 [facility] Comment on above: Performed By: #### B MP #### [facility] [address] [place] [address] Dr. Mely Mayes Glucose [Mass/Vol] 247 mg/dL Critically high 74-106 [facility] Comment on above: Performed By: #### B MP #### [facility] [address] [place] [address] Dr. Mely Mayes Potassium [Moles/Vol] 3.7 mmol/L Normal 3.5-5.1 [facility] Comment on above: Performed By: #### B MP #### [facility] [address] [place] [address] Dr. Mely Mayes Sodium [Moles/Vol] 135 mmol/L Critically low 136-[address] [facility] Comment on above: Performed By: #### B MP #### [facility] [address] [place] [address] Dr. Mely Mayes Urea nitrogen [Mass/Vol] 11.0 mg/dL Normal 7.0-18.0 [facility] Comment on above: Performed By: #### B MP #### [facility] [address] [place] [address] Dr. Mely Mayes Urea nitrogen/Creatinin e [Mass ratio] 10.4 mg/mg Normal [facility] Comment on above: Performed By: #### B MP #### [facility] [address] [place] [address] Dr. Mely Mayes PROF CHEM 8 (BAS METB)on Anion gap [Moles/Vol] 10.1 mmol/L Normal [facility] Comment on above: Performed By: #### B MP #### [facility] [address] [place] [address] Dr. Mely Mayes Calcium [Mass/Vol] 9.0 mg/dL Normal 8.5-10.1 [facility] Comment on above: Performed By: #### B MP #### [facility] [address] [place] [address] Dr. Mely Mayes Chloride [Moles/Vol] 100 mmol/L Normal 98-107 [facility] Comment on above: Performed By: #### B MP #### [facility] [address] [place] [address] Dr. Mely Mayes CO2 [Moles/Vol] 28.0 mmol/L Normal 21.0-32.0 [facility] Comment on above: Performed By: #### B MP #### [facility] [address] [place] [address] Dr. Mely Mayes Creatinine [Mass/Vol] 1.13 mg/dL Normal 0.70-1.30 [facility] Comment on above: Performed By: #### B MP #### [facility] [address] [place] [address] Dr. Mely Mayes EGFR-AF BRUNEIAN >60 Normal >=60 [facility] Comment on above: Performed By: #### B MP #### [facility] [address] [place] [address] Dr. Mely Mayes EGFR-NON AF BRUNEIAN >60 Normal >=60 [facility] Comment on above: Performed By: #### B MP #### [facility] [address] [address] [address] Mely Mayes Glucose [Mass/Vol] 285 mg/dL Critically high 74-106 [facility] Comment on above: Performed By: #### B MP #### [facility] [address] [address] [address] Mely Mayes Potassium [Moles/Vol] 4.1 mmol/L Normal 3.5-5.1 [facility] Comment on above: Performed By: #### B MP #### [facility] [address] [address] [address] Mely Mayes Sodium [Moles/Vol] 134 mmol/L Critically low 136-[address] [facility] Comment on above: Performed By: #### B MP #### [facility] [address] [address] [address] Mely Mayes Urea nitrogen [Mass/Vol] 9.0 mg/dL Normal 7.0-18.0 [facility] Comment on above: Performed By: #### B MP #### [facility] [address] [address] [address] Mely Mayes Urea nitrogen/Creatinin e [Mass ratio] 8.0 mg/mg Normal [facility] Comment on above: Performed By: #### B MP #### [facility] [address] [address] [address] Mely Mayes COVID Quick Testingon 2021 Result Positive [employer] Other BASIC METABOLIC PANELon 12-27 Calcium [Mass/Vol] 9.0 mg/dL Normal 8.6-10.3 [facility] Comment on above: Order Comment: Check Chest Tube Position Performed By: #### 1 0070, 93834 ####[facility] [place] [address], [facility] Chloride [Moles/Vol] 103 mmol/L Normal 98-107 [facility] Comment on above: Order Comment: Check Chest Tube Position Performed By: #### 1 69, 62013 ####[facility] [place] [address], [facility] CO2 [Moles/Vol] 24 mmol/L Normal 21-31 [facility] Comment on above: Order Comment: Check Chest Tube Position Performed By: #### 1 69, 82445 ####[facility] [place] [address], [place] Creatinine [Mass/Vol] 0.84 mg/dL Normal 0.70-1.30 [facility] Comment on above: Order Comment: Check Chest Tube Position Performed By: #### 1 69, 23242 ####[facility] [place] [address], [place] GFR/1.73 sq M.predicted among blacks MDRD (S/P/Bld) [Vol rate/Area] mL/min/{1.73_m2} Normal >60 [facility] Comment on above: Order Comment: Check Chest Tube Position Performed By: #### 1 69, 40432 ####[facility] [place] [address], [place] GFR/1.73 sq M.predicted among non-blacks MDRD (S/P/Bld) [Vol rate/Area] mL/min/{1.73_m2} Normal >60 [facility] Comment on above: Order Comment: Check Chest Tube Position Performed By: #### 1 69, 52000 ####[facility] [place] [address], [place] Glucose [Mass/Vol] 137 mg/dL High 70-100 [facility] Comment on above: Order Comment: Check Chest Tube Position Performed By: #### 1 69, 76549 ####[facility] [place] [address], [place] Potassium [Moles/Vol] 3.6 mmol/L Normal 3.5-5.1 [facility] Comment on above: Order Comment: Check Chest Tube Position Performed By: #### 1 69, 33724 ####[facility] [facility].[address] Sodium [Moles/Vol] 138 mmol/L Normal 136-145 [facility] Comment on above: Order Comment: Check Chest Tube Position Performed By: #### 1 69, 56275 ####[facility] Urea nitrogen [Mass/Vol] 13 mg/dL Normal 7-25 [facility] Comment on above: Order Comment: Check Chest Tube Position Performed By: #### 1 69, 46641 ####[facility] CBC COMPLETE BLOOD COUNTon 0 - Erythrocyte distribution width (RBC) [Ratio] 13.0 % Normal 11.5-15.0 [facility] Comment on above: Order Comment: evalu ate Performed By: #### 5 0608 ####[facility] Hematocrit (Bld) [Volume fraction] 33.3 % Low 39.0-50.0 [facility] Comment on above: Order Comment: evalu ate Performed By: #### 5 0608 ####[facility] Hemoglobin (Bld) [Mass/Vol] 11.8 g/dL Low 13.0-17.0 [facility] Comment on above: Order Comment: evalu ate Performed By: #### 5 0608 ####[facility] MCH (RBC) [Entitic mass] 30.3 pg Normal 27.0-33.0 [facility] Comment on above: Order Comment: evalu ate Performed By: #### 5 0608 ####[facility] [facility].[address] MCHC (RBC) [Mass/Vol] 35.4 g/dL High 32.0-35.0 [facility] Comment on above: Order Comment: evalu ate Performed By: #### 5 0608 ####[facility] [facility] [place] [address], [facility] MCV (RBC) [Entitic vol] 85.6 fL Normal 82.0-98.0 [facility] Comment on above: Order Comment: evalu ate Performed By: #### 5 0608 ####[facility] [facility].[address] Nucleated RBC/100 WBC (Bld) [Ratio] 0 % Normal 0-0 [facility] Comment on above: Order Comment: evalu ate Performed By: #### 5 0608 ####[facility] [facility].[address] PLAT CNT 224 10*3/uL Normal 150-400 [facility] Comment on above: Order Comment: evalu ate Performed By: #### 5 0608 ####[facility] [facility].[address] RBC (Bld) [#/Vol] 3.89 10*6/uL Low 4.20-5.70 [facility] Comment on above: Order Comment: evalu ate Performed By: #### 5 0608 ####[facility] [facility] [place] [address], [facility] WBC (Bld) [#/Vol] 9.88 10*3/uL Normal 4.00-10.60 [facility] Comment on above: Order Comment: evalu ate Performed By: #### 5 0608 ####[facility] [facility] [place] [address], [facility] MAGNESIUM BLOODon 01-07-2022 Magnesium [Mass/Vol] 2.3 mg/dL Normal 1.9-2.7 [facility] Comment on above: Order Comment: Check Chest Tube Position Performed By: #### 1 0070, 51030 ####[facility] [facility] [address], [facility] POC GLUCOSE LABon 01-07-2022 Glucose [Mass/Vol] 143 mg/dL High 70-100 [facility] Comment on above: Performed By: #### 8 5499 ####[facility] [facility] [address], [facility] Glucose [Mass/Vol] 182 mg/dL High 70-100 [facility] Comment on above: Performed By: #### 8 5499 ####[facility] [facility] [address], [facility] PORTABLE CHEST 1 VIEWon 12-27 PORTABLE CHEST 1 VIEW [facility] Department of Radiology [address] [place] [id number] Patient Name: OSWALD OCHOA : 1955 Sex: M Age: Race: White Pt. Location: [id number] Patient Status: I Ordered Date: 01/07/2022 5:00:00 [...] improved Electronically signed: YOLANDA GUTIERREZ. Transcribed by: [email or web address], User Resident: Electronically Signed by: YOLANDA GUTIERREZ @ 01/07/2022 09:39 AM Normal [facility] Comment on above: Order Comment: Evalu ate for Pneumothorax BASIC METABOLIC PANELon 12-27 Calcium [Mass/Vol] 9.0 mg/dL Normal 8.6-10.3 [facility] Comment on above: Order Comment: No: D o not add to previous draw Performed By: #### 1 0070, 15923 ####[facility] [facility] [place] [address], [facility] Chloride [Moles/Vol] 100 mmol/L Normal 98-107 [facility] Comment on above: Order Comment: No: D o not add to previous draw Performed By: #### 1 0070, 25372 ####[facility] [facility].[place] [id number], [facility] CO2 [Moles/Vol] 26 mmol/L Normal 21-31 [facility] Comment on above: Order Comment: No: D o not add to previous draw Performed By: #### 1 0070, 44683 ####[facility] [place] [address], [facility] Creatinine [Mass/Vol] 0.75 mg/dL Normal 0.70-1.30 [facility] Comment on above: Order Comment: No: D o not add to previous draw Performed By: #### 1 69, 49865 ####[facility] [place] [address], [place] GFR/1.73 sq M.predicted among blacks MDRD (S/P/Bld) [Vol rate/Area] mL/min/{1.73_m2} Normal >60 [facility] Comment on above: Order Comment: No: D o not add to previous draw Performed By: #### 1 69, 08886 ####[facility] [place] [address], [place] GFR/1.73 sq M.predicted among non-blacks MDRD (S/P/Bld) [Vol rate/Area] mL/min/{1.73_m2} Normal >60 [facility] Comment on above: Order Comment: No: D o not add to previous draw Performed By: #### 1 69, 92576 ####[facility] [place] [address], [place] Glucose [Mass/Vol] 139 mg/dL High 70-100 [facility] Comment on above: Order Comment: No: D o not add to previous draw Performed By: #### 1 69, 18025 ####[facility] [place] [address], [place] Potassium [Moles/Vol] 3.4 mmol/L Low 3.5-5.1 [facility] Comment on above: Order Comment: No: D o not add to previous draw Performed By: #### 1 69, 80660 ####[facility] [place] [address], [place] Sodium [Moles/Vol] 136 mmol/L Normal 136-145 [facility] Comment on above: Order Comment: No: D o not add to previous draw Performed By: #### 1 0, 48333 ####[facility]3000 [facility].[address] Urea nitrogen [Mass/Vol] 12 mg/dL Normal 7-25 [facility] Comment on above: Order Comment: No: D o not add to previous draw Performed By: #### 1 69, 63727 ####[facility]3000 [facility].[address] CBC COMPLETE BLOOD COUNTon 0 - Erythrocyte distribution width (RBC) [Ratio] 12.5 % Normal 11.5-15.0 [facility] Comment on above: Order Comment: No: D o not add to previous draw Performed By: #### 5 0608 ####[facility]3000 [facility].[address] Hematocrit (Bld) [Volume fraction] 30.8 % Low 39.0-50.0 [facility] Comment on above: Order Comment: No: D o not add to previous draw Performed By: #### 5 0608 ####[address] [id number] [facility].[address] Hemoglobin (Bld) [Mass/Vol] 10.9 g/dL Low 13.0-17.0 [facility] Comment on above: Order Comment: No: D o not add to previous draw Performed By: #### 5 0608 ####[facility]3000 [facility].[address] MCH (RBC) [Entitic mass] 30.2 pg Normal 27.0-33.0 [facility] Comment on above: Order Comment: No: D o not add to previous draw Performed By: #### 5 0608 ####[facility] [facility].[address] MCHC (RBC) [Mass/Vol] 35.4 g/dL High 32.0-35.0 [facility] Comment on above: Order Comment: No: D o not add to previous draw Performed By: #### 5 0608 ####[facility] [place] [address], [facility] MCV (RBC) [Entitic vol] 85.3 fL Normal 82.0-98.0 [facility] Comment on above: Order Comment: No: D o not add to previous draw Performed By: #### 5 0608 ####[facility] [facility].[address] Nucleated RBC/100 WBC (Bld) [Ratio] 0 % Normal 0-0 [facility] Comment on above: Order Comment: No: D o not add to previous draw Performed By: #### 5 0608 ####[facility] [facility] [place] [address], [facility] PLAT CNT 169 10*3/uL Normal 150-400 [facility] Comment on above: Order Comment: No: D o not add to previous draw Performed By: #### 5 0608 ####[facility] [facility].[address] RBC (Bld) [#/Vol] 3.61 10*6/uL Low 4.20-5.70 [facility] Comment on above: Order Comment: No: D o not add to previous draw Performed By: #### 5 0608 ####[facility] [facility] [place] [address], [facility] WBC (Bld) [#/Vol] 11.89 10*3/uL High 4.00-10.60 [facility] Comment on above: Order Comment: No: D o not add to previous draw Performed By: #### 5 0608 ####[facility] [place] [address], [facility] MAGNESIUM BLOODon 01-06-2022 Magnesium [Mass/Vol] 1.9 mg/dL Normal 1.9-2.7 [facility] Comment on above: Order Comment: No: D o not add to previous draw Performed By: #### 1 0070, 98813 ####[facility] [place] [address], [facility] POC GLUCOSE LABon 01-06-2022 Glucose [Mass/Vol] 143 mg/dL High 70-100 [facility] Comment on above: Performed By: #### 8 5499 ####[facility] [place] [address], [place] Glucose [Mass/Vol] 159 mg/dL High 70-100 [facility] Comment on above: Performed By: #### 8 5499 ####[facility] [place] [address], [place] Glucose [Mass/Vol] 215 mg/dL High 70-100 [facility] Comment on above: Performed By: #### 8 5499 ####[facility] [place] [address], [place] Glucose [Mass/Vol] 153 mg/dL High 70-100 [facility] Comment on above: Performed By: #### 8 5499 ####[facility] [place] [address], [facility] PORTABLE CHEST 1 VIEWon 12-27 PORTABLE CHEST 1 VIEW [facility] Department of Radiology [address] [place] [id number] Patient Name: OSWALD OCHOA : 1955 Sex: M Age: Race: White Pt. Location: [place] [address] Patient Status: I Ordered Date: 01/06/2022 5:00:00 [...] atelectasis. Electronically signed: YOLANDA GUTIERREZ. Transcribed by: [email or web address], User Resident: Electronically Signed by: YOLANDA GUTIERREZ @ 01/06/2022 09:50 AM Normal [facility] Comment on above: Order Comment: Evalu ate for Atelectasis BASIC METABOLIC PANELon 12-27 Calcium [Mass/Vol] 9.0 mg/dL Normal 8.6-10.3 [facility] Comment on above: Order Comment: Check Chest Tube Position Performed By: #### 0 0071, 31207, 64489 ####[facility] Chloride [Moles/Vol] 101 mmol/L Normal 98-107 [facility] Comment on above: Order Comment: Check Chest Tube Position Performed By: #### 0 0071, 16312, 68488 ####[facility] [place] [address], [place] CO2 [Moles/Vol] 28 mmol/L Normal 21-31 [facility] Comment on above: Order Comment: Check Chest Tube Position Performed By: #### 0 0071, 66343, 11185 ####[facility] [place] [address], [facility] Creatinine [Mass/Vol] 0.79 mg/dL Normal 0.70-1.30 [facility] Comment on above: Order Comment: Check Chest Tube Position Performed By: #### 0 0071, 01048, 08187 ####[facility] [place] [address], [facility] GFR/1.73 sq M.predicted among blacks MDRD (S/P/Bld) [Vol rate/Area] mL/min/{1.73_m2} Normal >60 [facility] Comment on above: Order Comment: Check Chest Tube Position Performed By: #### 0 0071, 49926, 30167 ####[facility] [place] [address], [facility] GFR/1.73 sq M.predicted among non-blacks MDRD (S/P/Bld) [Vol rate/Area] mL/min/{1.73_m2} Normal >60 [facility] Comment on above: Order Comment: Check Chest Tube Position Performed By: #### 0 0071, 99274, 55636 ####[facility] [place] [address], [place] Potassium [Moles/Vol] 3.9 mmol/L Normal 3.5-5.1 [facility] Comment on above: Order Comment: Check Chest Tube Position Performed By: #### 0 0071, 93108, 66003 ####[facility] [facility].[address] Sodium [Moles/Vol] 135 mmol/L Low 136-145 [facility] Comment on above: Order Comment: Check Chest Tube Position Performed By: #### 0 0071, 43028, 54640 ####[facility] [facility].[address] Urea nitrogen [Mass/Vol] 9 mg/dL Normal 7-25 [facility] Comment on above: Order Comment: Check Chest Tube Position Performed By: #### 0 0071, 57938, 01977 ####[facility]3000 [facility].[address] CBC COMPLETE BLOOD COUNTon 0 - Erythrocyte distribution width (RBC) [Ratio] 13.1 % Normal 11.5-15.0 [facility] Comment on above: Order Comment: No: D o not add to previous draw Performed By: #### 5 0608 ####[facility]3000 [facility].[address] Hematocrit (Bld) [Volume fraction] 30.6 % Low 39.0-50.0 [facility] Comment on above: Order Comment: No: D o not add to previous draw Performed By: #### 5 0608 ####[facility]3000 [facility].[address] Hemoglobin (Bld) [Mass/Vol] 10.6 g/dL Low 13.0-17.0 [facility] Comment on above: Order Comment: No: D o not add to previous draw Performed By: #### 5 0608 ####[facility] [facility] [place] [address], [facility] MCH (RBC) [Entitic mass] 30.3 pg Normal 27.0-33.0 [facility] Comment on above: Order Comment: No: D o not add to previous draw Performed By: #### 5 0608 ####[facility] MCHC (RBC) [Mass/Vol] 34.6 g/dL Normal 32.0-35.0 [facility] Comment on above: Order Comment: No: D o not add to previous draw Performed By: #### 5 0608 ####[facility]3000 [facility].[address] MCV (RBC) [Entitic vol] 87.4 fL Normal 82.0-98.0 [facility] Comment on above: Order Comment: No: D o not add to previous draw Performed By: #### 5 0608 ####[place] [id number] [facility].[address] Nucleated RBC/100 WBC (Bld) [Ratio] 0 % Normal 0-0 [facility] Comment on above: Order Comment: No: D o not add to previous draw Performed By: #### 5 0608 ####[facility]3000 [facility].[address] PLAT CNT 155 10*3/uL Normal 150-400 [facility] Comment on above: Order Comment: No: D o not add to previous draw Performed By: #### 5 0608 ####[address] RBC (Bld) [#/Vol] 3.50 10*6/uL Low 4.20-5.70 [facility] Comment on above: Order Comment: No: D o not add to previous draw Performed By: #### 5 0608 ####[address] [place] [address], [facility] WBC (Bld) [#/Vol] 13.63 10*3/uL High 4.00-10.60 [facility] Comment on above: Order Comment: No: D o not add to previous draw Performed By: #### 5 0608 ####[facility] [place] [address], [place] MAGNESIUM BLOODon 01-05-2022 Magnesium [Mass/Vol] 2.0 mg/dL Normal 1.9-2.7 [facility] Comment on above: Order Comment: Check Chest Tube Position Performed By: #### 0 0071, 32309, 54810 ####[facility] [place] [address], [place] PHOSPHORUS BLOODon 2 Phosphate [Mass/Vol] 2.8 mg/dL Normal 2.5-5.0 [facility] Comment on above: Performed By: #### 0 0071, 72750, 83356 ####[facility] [place] [address], [place] POC GLUCOSE LABon 01-05-2022 Glucose [Mass/Vol] 136 mg/dL High 70-100 [facility] Comment on above: Performed By: #### 8 5499 ####[facility] [place] [address], [place] Glucose [Mass/Vol] 157 mg/dL High 70-100 [facility] Comment on above: Performed By: #### 8 5499 ####[facility] [place] [address], [place] Glucose [Mass/Vol] 147 mg/dL High 70-100 [facility] Comment on above: Performed By: #### 8 9 ####[facility] [place] [address], [place] Order Comment: Check Chest Tube Position Performed By: #### 0 0071, 59239, 52732 ####[facility] [place] [address], [place] Glucose [Mass/Vol] 151 mg/dL High 70-100 [facility] Comment on above: Performed By: #### 8 5499 ####[facility] PORTABLE CHEST 1 VIEWon 12-27 PORTABLE CHEST 1 VIEW [facility] Department of Radiology [address] [place] [id number] Patient Name: OSWALD OCHOA : 1955 Sex: M Age: Race: White Pt. Location: [place] [address] Patient Status: I Ordered Date: 01/05/2022 12:20:00 [...] hours. Electronically signed: Nic Ramon. Transcribed by: [email or web address], User Resident: Electronically Signed by: NIC RAMON @ 01/05/2022 05:15 PM Normal [facility] Comment on above: Order Comment: evalu ate PORTABLE CHEST 1 VIEW [facility] Department of Radiology [address] [place] [id number] Patient Name: OSWALD OCHOA : 1955 Sex: M Age: Race: White Pt. Location: [place] [address] Patient Status: I Ordered Date: 01/05/2022 5:00:00 [...] appreciated. Electronically signed: Michelle Kc. Transcribed by: [email or web address], User Resident: Electronically Signed by: MICHELLE KC @ 01/05/2022 08:23 AM Normal [facility] Comment on above: Order Comment: evalu ate for Atelectasis APTTon 01-04-2022 aPTT Coag (Bld) [Time] 31.0 s Normal 25.0-35.0 [facility] Comment on above: Order Comment: [...] THIS PURPOSE. Performed By: #### 5 6101, 58106 ####[facility] [facility] [place] [address], [facility] ARTERIAL BLOOD GAS WITH ICAo n 01-04-2022 BASE EXCESS -5 mmol/L Low -2-3 [facility] Comment on above: Order Comment: Check Chest Tube Position, ON ARRIVAL TO CVU Performed By: #### 8 4971 ####[facility] [place] [address], [facility] [employer] VENTILATOR Normal [facility] Comment on above: Order Comment: Check Chest Tube Position, ON ARRIVAL TO CVU Performed By: #### 8 3711 ####[facility] [id number], [place] FIO2 40 % Normal [facility] Comment on above: Order Comment: Check Chest Tube Position, ON ARRIVAL TO CVU Performed By: #### 8 8631 ####[facility] [place] [address], [facility] HCO3 (Bld) [Moles/Vol] 22 mmol/L Normal 21-28 [facility] Comment on above: Order Comment: Check Chest Tube Position, ON ARRIVAL TO CVU Performed By: #### 8 4511 ####[facility] [place] [address], [facility] IONIZED CALCIUM ERROR Normal 1.13-1.32 [facility] Comment on above: Order Comment: Check Chest Tube Position, ON ARRIVAL TO CVU Performed By: #### 8 4511 ####[facility] [place] [address], [facility] MIN VOLUME 11.7 Normal [facility] Comment on above: Order Comment: Check Chest Tube Position, ON ARRIVAL TO CVU Performed By: #### 8 4511 ####[facility] [place] [address], [facility] MODALITY SPONT Normal [facility] Comment on above: Order Comment: Check Chest Tube Position, ON ARRIVAL TO CVU Performed By: #### 8 4511 ####[facility] [place] [address], [facility] Oxygen (Bld) [Partial pressure] 116 mm[Hg] Critically high 83-108 [facility] Comment on above: Order Comment: Check Chest Tube Position, ON ARRIVAL TO CVU Performed By: #### 8 4511 ####[facility] [place] [address], [facility] Oxygen saturation in Blood 96.7 % Normal 94.0-97.0 [facility] Comment on above: Order Comment: Check Chest Tube Position, ON ARRIVAL TO CVU Performed By: #### 8 4511 ####[facility] [place] [address], [facility] PCO2 45 mmHg Normal 35-45 [facility] Comment on above: Order Comment: Check Chest Tube Position, ON ARRIVAL TO CVU Performed By: #### 8 2021 ####[facility] [place] [address], [facility] PEEP 8.0 CMH20 Normal [facility] Comment on above: Order Comment: Check Chest Tube Position, ON ARRIVAL TO CVU Performed By: #### 8 4511 ####[facility] [place] [address], [place] pH (Bld) 7.29 [pH] Low 7.35-7.45 [facility] Comment on above: Order Comment: Check Chest Tube Position, ON ARRIVAL TO CVU Performed By: #### 8 4511 ####[facility] [place] [address], [facility] PRESSURE SUPPORT 5 Normal [facility] Comment on above: Order Comment: Check Chest Tube Position, ON ARRIVAL TO CVU Performed By: #### 8 4511 ####[facility] [place] [address], [facility] BASIC METABOLIC PANELon 06-0 -2021 Calcium [Mass/Vol] 8.5 mg/dL Low 8.6-10.3 [facility] Comment on above: Order Comment: post thoracotomy Performed By: #### 4 999, 22792, 35486 ####[facility] [place] [address], [place] Chloride [Moles/Vol] 107 mmol/L Normal 98-107 [facility] Comment on above: Order Comment: post thoracotomy Performed By: #### 4 999, 32850, 83865 ####[facility] [place] [address], [place] CO2 [Moles/Vol] 25 mmol/L Normal 21-31 [facility] Comment on above: Order Comment: post thoracotomy Performed By: #### 4 999, 22550, 97800 ####[facility] [place] [address], [place] Creatinine [Mass/Vol] 0.96 mg/dL Normal 0.70-1.30 [facility] Comment on above: Order Comment: post thoracotomy Performed By: #### 4 1000, 73876, 20783 ####[facility] [place] [address], [place] GFR/1.73 sq M.predicted among blacks MDRD (S/P/Bld) [Vol rate/Area] mL/min/{1.73_m2} Normal >60 [facility] Comment on above: Order Comment: post thoracotomy Performed By: #### 4 1000, 88781, 14712 ####[facility] [place] [address], [place] GFR/1.73 sq M.predicted among non-blacks MDRD (S/P/Bld) [Vol rate/Area] mL/min/{1.73_m2} Normal >60 [facility] Comment on above: Order Comment: post thoracotomy Performed By: #### 4 999, 98936, 62090 ####[facility] [place] [address], [place] Glucose [Mass/Vol] 172 mg/dL High 70-100 [facility] Comment on above: Order Comment: post thoracotomy Performed By: #### 4 1000, 26041, 10848 ####[facility] [place] [address], [place] Potassium [Moles/Vol] 4.1 mmol/L Normal 3.5-5.1 [facility] Comment on above: Order Comment: post thoracotomy Performed By: #### 4 999, 36752, 14437 ####[facility] [place] [address], [place] Sodium [Moles/Vol] 139 mmol/L Normal 136-145 [facility] Comment on above: Order Comment: post thoracotomy Performed By: #### 4 1000, 36237, 36022 ####[facility] [place] [address], [place] Urea nitrogen [Mass/Vol] 10 mg/dL Normal 7-25 [facility] Comment on above: Order Comment: post thoracotomy Performed By: #### 4 1000, 00073, 09259 ####[facility] CBC COMPLETE BLOOD COUNTon 0 01-04-2022 Erythrocyte distribution width (RBC) [Ratio] 12.7 % Normal 11.5-15.0 [facility] Comment on above: Order Comment: No: D o not add to previous drawNurse draw per rn clare Performed By: #### 5 0608 ####[facility] Hematocrit (Bld) [Volume fraction] 30.5 % Low 39.0-50.0 [facility] Comment on above: Order Comment: No: D o not add to previous drawNurse draw per rn clare Performed By: #### 5 0608 ####[facility] Hemoglobin (Bld) [Mass/Vol] 10.6 g/dL Low 13.0-17.0 [facility] Comment on above: Order Comment: No: D o not add to previous drawNurse draw per rn clare Performed By: #### 5 0608 ####[facility] MCH (RBC) [Entitic mass] 30.1 pg Normal 27.0-33.0 [facility] Comment on above: Order Comment: No: D o not add to previous drawNurse draw per rn clare Performed By: #### 5 0608 ####[address] MCHC (RBC) [Mass/Vol] 34.8 g/dL Normal 32.0-35.0 [facility] Comment on above: Order Comment: No: D o not add to previous drawNurse draw per rn clare Performed By: #### 5 0608 ####[facility] [facility] [place] [address], [facility] MCV (RBC) [Entitic vol] 86.6 fL Normal 82.0-98.0 [facility] Comment on above: Order Comment: No: D o not add to previous drawNurse draw per rn clrae Performed By: #### 5 0608 ####[facility] [facility] Nucleated RBC/100 WBC (Bld) [Ratio] 0 % Normal 0-0 [facility] Comment on above: Order Comment: No: D o not add to previous drawNurse draw per rn clare Performed By: #### 5 0608 ####[facility] [facility] [place] [address], [facility] PLAT CNT 149 10*3/uL Low 150-400 [facility] Comment on above: Order Comment: No: D o not add to previous drawNurse draw per rn clare Performed By: #### 5 0608 ####[facility] [facility] [place] [address], [facility] RBC (Bld) [#/Vol] 3.52 10*6/uL Low 4.20-5.70 [facility] Comment on above: Order Comment: No: D o not add to previous drawNurse draw per rn clare Performed By: #### 5 0608 ####[facility] [facility] [place] [address], [facility] WBC (Bld) [#/Vol] 11.45 10*3/uL High 4.00-10.60 [facility] Comment on above: Order Comment: No: D o not add to previous drawNurse draw per rn clare Performed By: #### 5 0608 ####[facility] [facility] [place] [address], [facility] LACTATE BLOODon 01-04-2022 Lactate [Moles/Vol] 2.0 mmol/L Normal .5-2.2 [facility] Comment on above: Order Comment: Check Chest Tube Position Performed By: #### 1 0054 ####[facility] [place] [address], [facility] MAGNESIUM BLOODon 01-04-2022 Magnesium [Mass/Vol] 2.4 mg/dL Normal 1.9-2.7 [facility] Comment on above: Order Comment: post thoracotomy Performed By: #### 4 1000, 99995, 27904 ####[facility] [place] [address], [facility] MIXED VENOUS BLOOD GAS W/SHIPWRIGHT APPRENTICE Xon 01-04-2022 BASE EXCESS -1 mmol/L Normal [facility] Comment on above: Performed By: #### 7 0072 ####[facility] [place] [address], [facility] COHB 1 % Normal [facility] Comment on above: Performed By: #### 7 0072 ####[facility] [place] [address], [facility] [employer] NASAL CANNULA Normal [facility] Comment on above: Performed By: #### 7 0072 ####[facility] [place] [address], [place] HCO3 (Bld) [Moles/Vol] 26 mmol/L Normal [facility] Comment on above: Performed By: #### 7 0072 ####[facility] [place] [address], [place] LPM 3 Normal [facility] Comment on above: Performed By: #### 7 2 ####[facility] [place] [address], [place] METHB 0 % Normal [facility] Comment on above: Performed By: #### 7 2 ####[facility] [place] [address], [facility] Oxygen (Bld) [Partial pressure] 41 mm[Hg] Normal 35-45 [facility] Comment on above: Performed By: #### 7 0072 ####[facility] [place] [address], [facility] Oxygen saturation in Blood 67.6 % Normal 65.0-75.0 [facility] Comment on above: Performed By: #### 7 0072 ####[facility] [place] [address], [facility] PCO2 51 mmHg High 40-50 [facility] Comment on above: Performed By: #### 7 0072 ####[facility] [place] [address], [facility] pH (Bld) 7.32 [pH] Normal 7.31-7.41 [facility] Comment on above: Performed By: #### 7 0072 ####[facility] [place] [address], [facility] THB 11.0 g/dL Normal [facility] Comment on above: Performed By: #### 7 0072 ####[facility] Operative Reporton 2 Operative Report MR#: [id number] I [facility] Pt. Name: Oswald Ochoa Room #: HIRO [id number] Discharge Date: Birthdate: 1955 OPERATIVE REPORT DATE [...] saphenous vein. 3. Interpretation of transesophageal echocardiogram. BAND SAW MARKER: Pedro Luis Gill. ANESTHESIA: General with endotracheal [...] graft. The vein graft anastomosed in a [id number] fashion to the obtuse marginal 2 branch [...] w (more content not included)... Normal [facility] PHOSPHORUS BLOODon 2 Phosphate [Mass/Vol] 2.9 mg/dL Normal 2.5-5.0 [facility] Comment on above: Order Comment: post thoracotomy Performed By: #### 4 1000, 08717, 83491 ####[facility] POC GLUCOSE LABon 01-04-2022 Glucose [Mass/Vol] 130 mg/dL High 70-100 [facility] Comment on above: Performed By: #### 8 5499 ####[facility] [place] [address], [place] Glucose [Mass/Vol] 118 mg/dL High 70-100 [facility] Comment on above: Performed By: #### 8 5499 ####[facility] [place] [address], [place] Glucose [Mass/Vol] 101 mg/dL High 70-100 [facility] Comment on above: Performed By: #### 8 5499 ####[facility] [place] [address], [place] Glucose [Mass/Vol] 96 mg/dL Normal 70-100 [facility] Comment on above: Performed By: #### 8 5499 ####[facility] [place] [address], [place] Glucose [Mass/Vol] 76 mg/dL Normal 70-100 [facility] Comment on above: Performed By: #### 8 5499 ####[facility] [place] [address], [place] Glucose [Mass/Vol] 93 mg/dL Normal 70-100 [facility] Comment on above: Performed By: #### 8 5499 ####[facility] [place] [address], [place] Glucose [Mass/Vol] 130 mg/dL High 70-100 [facility] Comment on above: Performed By: #### 8 5499 ####[facility] [place] [address], [place] Glucose [Mass/Vol] 130 mg/dL High 70-100 [facility] Comment on above: Performed By: #### 8 5499 ####[facility] [place] [address], [place] Glucose [Mass/Vol] 147 mg/dL High 70-100 [facility] Comment on above: Performed By: #### 8 5499 ####[facility] [facility] [address], [place] Glucose [Mass/Vol] 175 mg/dL High 70-100 [facility] Comment on above: Performed By: #### 8 5499 ####[facility] [facility] [address], [place] Glucose [Mass/Vol] 190 mg/dL High 70-100 [facility] Comment on above: Performed By: #### 8 5499 ####[facility] [place] [address], [place] Glucose [Mass/Vol] 207 mg/dL High 70-100 [facility] Comment on above: Performed By: #### 8 5499 ####[facility] [facility] [address], [place] Glucose [Mass/Vol] 200 mg/dL High 70-100 [facility] Comment on above: Performed By: #### 8 5499 ####[facility] [place] [address], [facility] PORTABLE CHEST 1 VIEWon 06-0 PORTABLE CHEST 1 VIEW [facility] Department of Radiology [address] [place] [id number] Patient Name: OSWALD OCHOA : 1955 Sex: M Age: Race: White Pt. Location: [place] [address] Patient Status: I Ordered Date: 01/04/2022 1:00:00 [...] January 04, 2022. 0643 hours. FINDINGS: The [place] catheter has been withdrawn leaving a right jugular vein sheath with its tip in the SVC. Sternotomy wires and cardiomegaly remain. Pleural effusion suggested in the left costophrenic angle linear atelectasis over both hemidiaphragms. Perihilar congestive changes persist. No pneumothorax. IMPRESSION: No pneumothorax. No interval change in lung cunningham. Electronically signed: Michelle Kc. Transcribed by: [email or web address], User Resident: Electronically Signed by: MICHELLE KC @ 01/04/2022 01:25 PM Normal [facility] Comment on above: Order Comment: Pneum othorax PORTABLE CHEST 1 VIEW [facility] Department of Radiology [address] [place] [id number] Patient Name: OSWALD OCHOA : 1955 Sex: M Age: Race: White Pt. Location: [place] [address] Patient Status: I Ordered Date: 01/04/2022 7:00:00 [...] tube and NG tube have been removed. [place] catheter remains with its tip in the right main pulmonary artery. Sternotomy wires with mild cardiomegaly remain. Haziness in the left costophrenic angle suggests effusion and lower lobe consolidation. No pneumothorax identified. IMPRESSION: Left pleural effusion and lower lobe consolidation. Electronically signed: Michelle Kc. Transcribed by: [email or web address], User Resident: Electronically Signed by: MICHELLE KC @ 01/04/2022 08:12 AM Normal [facility] Comment on above: Order Comment: Check Chest Tube Position PROTHROMBIN TIMEon 2 INR Coag (PPP) [Relative time] 1.24 {INR} High 0.91-1.16 [facility] Comment on above: Order Comment: [...] CHEST 1995;[id number]. Performed By: #### 5 6101, 14139 ####[facility] PT Coag (PPP) [Time] 15.5 s High 12.3-14.8 [facility] Comment on above: Order Comment: evalu ate Result Comment: ALL RESULTS MUST BE INTERPRETED WITH RESPECT TO BLOOD DRAWING ARTIFACT OR DILUTION ERROR OF ANTICOAGULANT AT THE TIME OF SAMPLING. Performed By: #### 5 6101, 59967 ####[facility] [facility].[address] *MRSA/MSSA DNA NASALon 01-03 *MRSA/MSSA DNA NASAL Clinical Report: (D) Specimen: NASAL SWAB Collected: 01/02/2022 22:13 Status: Final Last Updated: 01/03/2022 10:59 MSSA DNA (Final) Negative MRSA DNA (Final) Negative Normal [facility] Comment on above: Performed By: #### 3 1595 ####[facility] ACTIVATED CLOTTING TIMEon ACTIVATED CLOTTING TIME 0 sec Low 82-152 [facility] Comment on above: Performed By: #### 3 0739 ####[facility] ACTIVATED CLOTTING TIME 116 sec Normal 82-152 [facility] Comment on above: Performed By: #### 3 0739 ####[facility] ACTIVATED CLOTTING TIME 426 sec High 82-152 [facility] Comment on above: Performed By: #### 3 0739 ####[facility] [place] [address], [facility] ACTIVATED CLOTTING TIME 512 sec High 82-152 [facility] Comment on above: Performed By: #### 3 0739 ####[facility] [place] [address], [facility] ACTIVATED CLOTTING TIME 622 sec High 82-152 [facility] Comment on above: Performed By: #### 3 0739 ####[facility], [place] [address] [place] [address] ACTIVATED CLOTTING TIME 722 sec High 82-152 [facility] Comment on above: Performed By: #### 3 0739 ####[facility], [place] [address] [place] [address] ACTIVATED CLOTTING TIME 855 sec High 82-152 [facility] Comment on above: Performed By: #### 3 0739 ####[facility] [place] [address], [facility] ACTIVATED CLOTTING TIME 122 sec Normal 82-152 [facility] Comment on above: Performed By: #### 3 0739 ####[facility] APTTon 01-03-2022 aPTT Coag (Bld) [Time] 31.0 s Normal 25.0-35.0 [facility] Comment on above: Order Comment: [...] THIS PURPOSE. Performed By: #### 5 7307, 78639 ####[facility] [place] [address], [facility] aPTT Coag (Bld) [Time] 28.9 s Normal 25.0-35.0 [facility] Comment on above: Result Comment: [...] THIS PURPOSE. Performed By: #### 5 7307, 71504, 27310 ####[facility] [facility] [place] ARTERIAL BLOOD GAS WITH ICAo n 01-03-2022 BASE EXCESS -4 mmol/L Low -2-3 [facility] Comment on above: Order Comment: Check Chest Tube Position, ON ARRIVAL TO CVU Performed By: #### 8 4511 ####[facility] [facility] [place] DELIVERY SYSTEMS VENTILATOR Normal [facility] Comment on above: Order Comment: Check Chest Tube Position, ON ARRIVAL TO CVU Performed By: #### 8 4511 ####[facility] [facility] [place] [address], [facility] FIO2 40 % Normal [facility] Comment on above: Order Comment: Check Chest Tube Position, ON ARRIVAL TO CVU Performed By: #### 8 4511 ####[facility] [place] [address], [facility] HCO3 (Bld) [Moles/Vol] 22 mmol/L Normal 21-28 [facility] Comment on above: Order Comment: Check Chest Tube Position, ON ARRIVAL TO CVU Performed By: #### 8 4511 ####[facility] [place] [address], [facility] IONIZED CALCIUM 1.20 mmol/L Normal 1.13-1.32 [facility] Comment on above: Order Comment: Check Chest Tube Position, ON ARRIVAL TO CVU Performed By: #### 8 4511 ####[facility] [place] [address], [facility] MIN VOLUME 12.1 Normal [facility] Comment on above: Order Comment: Check Chest Tube Position, ON ARRIVAL TO CVU Performed By: #### 8 4511 ####[facility] [place] [address], [place] MODALITY SIMV Normal [facility] Comment on above: Order Comment: Check Chest Tube Position, ON ARRIVAL TO CVU Performed By: #### 8 4511 ####[facility] [place] [address], [facility] Oxygen (Bld) [Partial pressure] 104 mm[Hg] Normal 83-108 [facility] Comment on above: Order Comment: Check Chest Tube Position, ON ARRIVAL TO CVU Performed By: #### 8 4511 ####[facility] [place] [address], [facility] Oxygen saturation in Blood 96.5 % Normal 94.0-97.0 [facility] Comment on above: Order Comment: Check Chest Tube Position, ON ARRIVAL TO CVU Performed By: #### 8 4511 ####[facility] [place] [address], [place] PCO2 41 mmHg Normal 35-45 [facility] Comment on above: Order Comment: Check Chest Tube Position, ON ARRIVAL TO CVU Performed By: #### 8 4511 ####[facility] [place] [address], [place] PEEP 8.0 CMH20 Normal [facility] Comment on above: Order Comment: Check Chest Tube Position, ON ARRIVAL TO CVU Performed By: #### 8 4511 ####[facility] [place] [address], [facility] pH (Bld) 7.33 [pH] Low 7.35-7.45 [facility] Comment on above: Order Comment: Check Chest Tube Position, ON ARRIVAL TO CVU Performed By: #### 8 4511 ####[facility] [place] [address], [facility] PRESSURE SUPPORT 10 Normal [facility] Comment on above: Order Comment: Check Chest Tube Position, ON ARRIVAL TO CVU Performed By: #### 8 4511 ####[facility] Respiratory rate 10 /min Normal [facility] Comment on above: Order Comment: Check Chest Tube Position, ON ARRIVAL TO CVU Performed By: #### 8 4511 ####[facility] TIDAL VOLUME (VT) CC 600 Normal [facility] Comment on above: Order Comment: Check Chest Tube Position, ON ARRIVAL TO CVU Performed By: #### 8 4511 ####[facility] [place] [address], [facility] BASE EXCESS -4 mmol/L Low -2-3 [facility] Comment on above: Performed By: #### 8 4511 ####[facility] DELIVERY SYSTEMS mv Normal [facility] Comment on above: Performed By: #### 8 4511 ####[facility] [place] [address], [facility] FIO2 40 % Normal [facility] Comment on above: Performed By: #### 8 4511 ####[facility] [place] [address], [facility] HCO3 (Bld) [Moles/Vol] 23 mmol/L Normal 21-28 [facility] Comment on above: Performed By: #### 8 4511 ####[facility] [place] [address], [place] IONIZED CALCIUM 1.20 mmol/L Normal 1.13-1.32 [facility] Comment on above: Performed By: #### 8 4511 ####[facility] [place] [address], [place] MIN VOLUME 8.2 Normal [facility] Comment on above: Performed By: #### 8 4511 ####[facility] [place] [address], [place] MODALITY SIMV Normal [facility] Comment on above: Performed By: #### 8 4511 ####[facility] [place] [address], [place] Oxygen (Bld) [Partial pressure] 94 mm[Hg] Normal 83-108 [facility] Comment on above: Performed By: #### 8 4511 ####[facility] [place] [address], [place] Oxygen saturation in Blood 99 % Normal 94-100 [facility] Comment on above: Performed By: #### 8 4511 ####[facility] [place] [address], [place] Oxygen saturation in Blood 96.3 % Normal 94.0-97.0 [facility] Comment on above: Performed By: #### 8 4511 ####[facility] [place] [address], [place] PCO2 47 mmHg High 35-45 [facility] Comment on above: Performed By: #### 8 4511 ####[facility] [place] [address], [place] PEEP 8.0 CMH20 Normal [facility] Comment on above: Performed By: #### 8 4511 ####[facility] [place] [address], [facility] pH (Bld) 7.29 [pH] Low 7.35-7.45 [facility] Comment on above: Performed By: #### 8 4511 ####[facility] [place] [address], [facility] PRESSURE SUPPORT 10 Normal [facility] Comment on above: Performed By: #### 8 4511 ####[facility], [place] [address] [place] [address] Respiratory rate 14 /min Normal [facility] Comment on above: Performed By: #### 8 4511 ####[facility] [facility] [place] TIDAL VOLUME (VT) CC 570 Normal [facility] Comment on above: Performed By: #### 8 4511 ####[facility] [facility].[address] BASE EXCESS -6 mmol/L Low -2-3 [facility] Comment on above: Order Comment: evalu ate Performed By: #### 8 4511 ####[facility] [facility] [place] DELIVERY SYSTEMS MV Normal [facility] Comment on above: Order Comment: evalu ate Performed By: #### 8 4511 ####[facility] [facility] [place] [address], [facility] FIO2 50 % Normal [facility] Comment on above: Order Comment: evalu ate Performed By: #### 8 4511 ####[facility] [facility] [place] [address], [facility] HCO3 (Bld) [Moles/Vol] 21 mmol/L Normal 21-28 [facility] Comment on above: Order Comment: evalu ate Performed By: #### 8 4511 ####[facility] [place] [address], [place] IONIZED CALCIUM 1.14 mmol/L Normal 1.13-1.32 [facility] Comment on above: Order Comment: evalu ate Performed By: #### 8 4511 ####[facility] [place] [address], [place] MIN VOLUME 8.9 Normal [facility] Comment on above: Order Comment: evalu ate Performed By: #### 8 4511 ####[facility] [place] [address], [place] MODALITY SIMV Normal [facility] Comment on above: Order Comment: evalu ate Performed By: #### 8 4511 ####[facility] [place] [address], [place] Oxygen (Bld) [Partial pressure] 133 mm[Hg] Critically high 83-108 [facility] Comment on above: Order Comment: evalu ate Performed By: #### 8 4511 ####[facility] [place] [address], [place] Oxygen saturation in Blood 97.4 % High 94.0-97.0 [facility] Comment on above: Order Comment: evalu ate Performed By: #### 8 4511 ####[facility] [place] [address], [place] PCO2 42 mmHg Normal 35-45 [facility] Comment on above: Order Comment: evalu ate Performed By: #### 8 4511 ####[facility] [place] [address], [place] PEEP 8.0 CMH20 Normal [facility] Comment on above: Order Comment: evalu ate Performed By: #### 8 4511 ####[facility] [place] [address], [place] pH (Bld) 7.30 [pH] Low 7.35-7.45 [facility] Comment on above: Order Comment: evalu ate Performed By: #### 8 4511 ####[facility] [place] [address], [facility] PRESSURE SUPPORT 10 Normal [facility] Comment on above: Order Comment: evalu ate Performed By: #### 8 4511 ####[facility] [place] [address], [facility] Respiratory rate 14 /min Normal [facility] Comment on above: Order Comment: evalu ate Performed By: #### 8 4511 ####[facility] [place] [address], [facility] TIDAL VOLUME (VT) CC 570 Normal [facility] Comment on above: Order Comment: evalu ate Performed By: #### 8 4511 ####[facility] [place] [address], [facility] BASIC METABOLIC PANELon 06-0 -2021 Calcium [Mass/Vol] 8.6 mg/dL Normal 8.6-10.3 [facility] Comment on above: Order Comment: No: D o not add to previous draw Performed By: #### 0 0071, 24839, 04920 ####[facility] [place] [address], [place] Chloride [Moles/Vol] 108 mmol/L High 98-107 [facility] Comment on above: Order Comment: No: D o not add to previous draw Performed By: #### 0 0071, 15317, 30743 ####[facility] [place] [address], [place] CO2 [Moles/Vol] 22 mmol/L Normal 21-31 [facility] Comment on above: Order Comment: No: D o not add to previous draw Performed By: #### 0 0071, 99294, 60382 ####[facility] [place] [address], [place] Creatinine [Mass/Vol] 0.97 mg/dL Normal 0.70-1.30 [facility] Comment on above: Order Comment: No: D o not add to previous draw Performed By: #### 0 0071, 52803, 05869 ####[facility] [place] [address], [place] Glucose [Mass/Vol] 177 mg/dL High 70-100 [facility] Comment on above: Order Comment: No: D o not add to previous draw Performed By: #### 0 0071, 06310, 51822 ####[facility] [place] [address], [place] Potassium [Moles/Vol] 4.8 mmol/L Normal 3.5-5.1 [facility] Comment on above: Order Comment: No: D o not add to previous draw Performed By: #### 0 0071, 57752, 31000 ####[facility] [place] [address], [place] Urea nitrogen [Mass/Vol] 12 mg/dL Normal 7-25 [facility] Comment on above: Order Comment: No: D o not add to previous draw Performed By: #### 0 0071, 82055, 65188 ####[facility] [place] [address], [place] Calcium [Mass/Vol] 8.1 mg/dL Low 8.6-10.3 [facility] Comment on above: Performed By: #### 1 0070, 44244 ####[facility] [place] [address], [place] Chloride [Moles/Vol] 107 mmol/L Normal 98-107 [facility] Comment on above: Performed By: #### 1 0070, 29137 ####[facility] [place] [address], [place] CO2 [Moles/Vol] 23 mmol/L Normal 21-31 [facility] Comment on above: Performed By: #### 1 69, 77753 ####[facility] [place] [address], [facility] Creatinine [Mass/Vol] 1.02 mg/dL Normal 0.70-1.30 [facility] Comment on above: Performed By: #### 1 0, 93045 ####[facility] [place] [address], [facility] GFR/1.73 sq M.predicted among blacks MDRD (S/P/Bld) [Vol rate/Area] mL/min/{1.73_m2} Normal >60 [facility] Comment on above: Order Comment: No: D o not add to previous draw Performed By: #### 0 0071, 59836, 44971 ####[facility] Performed By: #### 1 69, 20060 ####[facility] [facility] [place] [address], [facility] GFR/1.73 sq M.predicted among non-blacks MDRD (S/P/Bld) [Vol rate/Area] mL/min/{1.73_m2} Normal >60 [facility] Comment on above: Order Comment: No: D o not add to previous draw Performed By: #### 0 0071, 19600, 86188 ####[facility] [facility] [place] [address], [facility] Performed By: #### 1 0, 38848 ####[facility] [facility] [place] [address], [facility] Glucose [Mass/Vol] 124 mg/dL High 70-100 [facility] Comment on above: Performed By: #### 1 69, 03502 ####[facility] [place] [address], [place] Potassium [Moles/Vol] 3.8 mmol/L Normal 3.5-5.1 [facility] Comment on above: Performed By: #### 1 0, 79465 ####[facility] [place] [address], [facility] Sodium [Moles/Vol] 138 mmol/L Normal 136-145 [facility] Comment on above: Performed By: #### 1 69, 76648 ####[facility] Urea nitrogen [Mass/Vol] 11 mg/dL Normal 7-25 [facility] Comment on above: Performed By: #### 1 69, 58182 ####[facility] Sodium [Moles/Vol] 139 mmol/L Normal 138-146 [facility] Comment on above: Order Comment: No: D o not add to previous draw Performed By: #### 0 0071, 46924, 66018 ####[facility] [facility] [place] Performed By: #### 3 0738 ####[facility] [facility] CBC COMPLETE BLOOD COUNTon 0 01-03-2022 Erythrocyte distribution width (RBC) [Ratio] 12.7 % Normal 11.5-15.0 [facility] Comment on above: Order Comment: evalu ate Performed By: #### 5 0608 ####[facility] [place] [address], [facility] Hematocrit (Bld) [Volume fraction] 30.8 % Low 39.0-50.0 [facility] Comment on above: Order Comment: evalu ate Performed By: #### 5 0608 ####[place] [id number] [place] [address], [facility] Hemoglobin (Bld) [Mass/Vol] 10.9 g/dL Low 13.0-17.0 [facility] Comment on above: Order Comment: evalu ate Performed By: #### 5 0608 ####[facility] MCH (RBC) [Entitic mass] 30.1 pg Normal 27.0-33.0 [facility] Comment on above: Order Comment: evalu ate Performed By: #### 5 0608 ####[facility] MCHC (RBC) [Mass/Vol] 35.4 g/dL High 32.0-35.0 [facility] Comment on above: Order Comment: evalu ate Performed By: #### 5 0608 ####[facility] MCV (RBC) [Entitic vol] 85.1 fL Normal 82.0-98.0 [facility] Comment on above: Order Comment: evalu ate Performed By: #### 5 0608 ####[address] PLAT CNT 135 10*3/uL Low 150-400 [facility] Comment on above: Order Comment: evalu ate Performed By: #### 5 0608 ####[facility] [place] [address] RBC (Bld) [#/Vol] 3.62 10*6/uL Low 4.20-5.70 [facility] Comment on above: Order Comment: evalu ate Performed By: #### 5 0608 ####[facility] [place] [address] WBC (Bld) [#/Vol] 14.29 10*3/uL High 4.00-10.60 [facility] Comment on above: Order Comment: evalu ate Performed By: #### 5 0608 ####[facility]3000 [facility].[address] Erythrocyte distribution width (RBC) [Ratio] 12.6 % Normal 11.5-15.0 [facility] Comment on above: Performed By: #### 5 0608 ####[facility] [facility].[address] Hematocrit (Bld) [Volume fraction] 28.9 % Low 39.0-50.0 [facility] Comment on above: Performed By: #### 5 0608 ####[address] Hemoglobin (Bld) [Mass/Vol] 10.3 g/dL Low 13.0-17.0 [facility] Comment on above: Performed By: #### 5 0608 ####[address] MCH (RBC) [Entitic mass] 30.3 pg Normal 27.0-33.0 [facility] Comment on above: Performed By: #### 5 0608 ####[place] [address] [facility].[address] MCHC (RBC) [Mass/Vol] 35.6 g/dL High 32.0-35.0 [facility] Comment on above: Performed By: #### 5 0608 ####[address] MCV (RBC) [Entitic vol] 85.0 fL Normal 82.0-98.0 [facility] Comment on above: Performed By: #### 5 0608 ####[address] Nucleated RBC/100 WBC (Bld) [Ratio] 0 % Normal 0-0 [facility] Comment on above: Order Comment: evalu ate Performed By: #### 5 0608 ####[facility] [place] [address], [facility] PLAT CNT 127 10*3/uL Low 150-400 [facility] Comment on above: Performed By: #### 5 0608 ####[facility] [facility] [place] [address], [facility] RBC (Bld) [#/Vol] 3.40 10*6/uL Low 4.20-5.70 [facility] Comment on above: Performed By: #### 5 0608 ####[place] [id number] [facility] [place] [address], [facility] WBC (Bld) [#/Vol] 13.69 10*3/uL High 4.00-10.60 [facility] Comment on above: Performed By: #### 5 0608 ####[facility] [facility].[address] FIBRINOGENon 01-03-2022 FIBRINOGEN 168 mg/dL Normal 150-425 [facility] Comment on above: Performed By: #### 5 7307, 86392, 34139 ####[place] [address] [facility].[address] LACTATE BLOODon 01-03-2022 Lactate [Moles/Vol] 1.4 mmol/L Normal .5-2.2 [facility] Comment on above: Order Comment: No: D o not add to previous draw Performed By: #### 1 0054 ####[facility] [facility] [place] [address], [facility] MAGNESIUM BLOODon 01-03-2022 Magnesium [Mass/Vol] 2.4 mg/dL Normal 1.9-2.7 [facility] Comment on above: Order Comment: No: D o not add to previous draw Performed By: #### 0 0071, 43832, 54604 ####[facility] [facility] [place] [address], [facility] Magnesium [Mass/Vol] 2.9 mg/dL High 1.9-2.7 [facility] Comment on above: Performed By: #### 1 0070, 76716 ####[facility] [facility] [place] [address], [facility] PERFUSION BLOOD PANELon 06-0 -2021 BASE EXCESS -4.0 mmol/L Low -2.0-3.0 [facility] Comment on above: Performed By: #### 3 0738 ####[facility] [facility] Glucose [Mass/Vol] 129 mg/dL High 70-105 [facility] Comment on above: Performed By: #### 3 0738 ####[place] [id number] [facility].[address] Hematocrit (Bld) [Volume fraction] 29 % Low 38-51 [facility] Comment on above: Performed By: #### 3 0738 ####[place] [id number] [facility].[address] Hemoglobin (Bld) [Mass/Vol] 9.9 g/dL Low 12.0-17.0 [facility] Comment on above: Performed By: #### 3 0738 ####[place] [id number] [facility].[address] IONIZED CALCIUM 1.22 mmol/L Normal 1.12-1.32 [facility] Comment on above: Performed By: #### 3 0738 ####[place] [id number] [facility].[address] Oxygen (Bld) [Partial pressure] 115.0 mm[Hg] High 80.0-105.0 [facility] Comment on above: Performed By: #### 3 0738 ####[place] [id number] [facility] [place] [address], [facility] PCO2 46.3 mmHg High 35.0-45.0 [facility] Comment on above: Performed By: #### 3 0738 ####[facility] [place] [address], [facility] pH (Bld) 7.29 [pH] Low 7.35-7.45 [facility] Comment on above: Performed By: #### 3 0738 ####[facility] [place] [address], [facility] Potassium [Moles/Vol] 3.8 mmol/L Normal 3.5-4.9 [facility] Comment on above: Performed By: #### 3 0738 ####[facility] [place] [address], [facility] Sodium [Moles/Vol] 141 mmol/L Normal 138-146 [facility] Comment on above: Performed By: #### 3 0738 ####[facility] [place] [address], [facility] BASE EXCESS -3.0 mmol/L Low -2.0-3.0 [facility] Comment on above: Performed By: #### 3 0738 ####[facility] [place] [address], [facility] Glucose [Mass/Vol] 120 mg/dL High 70-105 [facility] Comment on above: Performed By: #### 3 0738 ####[facility] [place] [address], [facility] Hematocrit (Bld) [Volume fraction] 27 % Low 38-51 [facility] Comment on above: Performed By: #### 3 0738 ####[facility] [place] [address], [facility] Hemoglobin (Bld) [Mass/Vol] 9.2 g/dL Low 12.0-17.0 [facility] Comment on above: Performed By: #### 3 0738 ####[facility]3000 [facility].[address] IONIZED CALCIUM 1.27 mmol/L Normal 1.12-1.32 [facility] Comment on above: Performed By: #### 3 0738 ####[facility]3000 [facility].[address] Oxygen (Bld) [Partial pressure] 215.0 mm[Hg] High 80.0-105.0 [facility] Comment on above: Performed By: #### 3 0738 ####[address] PCO2 44.6 mmHg Normal 35.0-45.0 [facility] Comment on above: Performed By: #### 3 0738 ####[address] pH (Bld) 7.32 [pH] Low 7.35-7.45 [facility] Comment on above: Performed By: #### 3 0738 ####[place] [id number] [facility].[address] Potassium [Moles/Vol] 3.9 mmol/L Normal 3.5-4.9 [facility] Comment on above: Performed By: #### 3 0738 ####[facility]3000 [facility].[address] Sodium [Moles/Vol] 141 mmol/L Normal 138-146 [facility] Comment on above: Performed By: #### 3 0738 ####[place] [id number] [facility].[address] BASE EXCESS 1.0 mmol/L Normal -2.0-3.0 [facility] Comment on above: Performed By: #### 3 0738 ####[facility] [place] [address], [facility] Glucose [Mass/Vol] 125 mg/dL High 70-105 [facility] Comment on above: Performed By: #### 3 0738 ####[facility] [place] [address], [facility] Hematocrit (Bld) [Volume fraction] 28 % Low 38-51 [facility] Comment on above: Performed By: #### 3 0738 ####[facility] [place] [address], [facility] Hemoglobin (Bld) [Mass/Vol] 9.5 g/dL Low 12.0-17.0 [facility] Comment on above: Performed By: #### 3 0738 ####[facility] [place] [address], [facility] IONIZED CALCIUM 1.73 mmol/L Critically high 1.12-1.32 [facility] Comment on above: Performed By: #### 3 0738 ####[facility] [place] [address], [facility] Oxygen (Bld) [Partial pressure] 392.0 mm[Hg] High 80.0-105.0 [facility] Comment on above: Performed By: #### 3 0738 ####[facility] [place] [address], [facility] PCO2 42.7 mmHg Normal 35.0-45.0 [facility] Comment on above: Performed By: #### 3 0738 ####[facility] [place] [address], [facility] pH (Bld) 7.39 [pH] Normal 7.35-7.45 [facility] Comment on above: Performed By: #### 3 0738 ####[facility] [place] [address], [place] Potassium [Moles/Vol] 4.4 mmol/L Normal 3.5-4.9 [facility] Comment on above: Performed By: #### 3 0738 ####[facility] [place] [address], [facility] Sodium [Moles/Vol] 137 mmol/L Low 138-146 [facility] Comment on above: Performed By: #### 3 0738 ####[facility] [facility] [place] [address], [facility] BASE EXCESS 2.0 mmol/L Normal -2.0-3.0 [facility] Comment on above: Performed By: #### 3 0738 ####[facility] [facility] [place] [address], [facility] Glucose [Mass/Vol] 124 mg/dL High 70-105 [facility] Comment on above: Performed By: #### 3 0738 ####[facility]3000 [facility].[address] Hematocrit (Bld) [Volume fraction] 30 % Low 38-51 [facility] Comment on above: Performed By: #### 3 0738 ####[facility] [facility] [place] [address], [facility] Hemoglobin (Bld) [Mass/Vol] 10.2 g/dL Low 12.0-17.0 [facility] Comment on above: Performed By: #### 3 0738 ####[facility] [facility] [place] [address], [facility] IONIZED CALCIUM 1.14 mmol/L Normal 1.12-1.32 [facility] Comment on above: Performed By: #### 3 0738 ####[facility] [facility] [place] [address], [facility] Oxygen (Bld) [Partial pressure] 333.0 mm[Hg] High 80.0-105.0 [facility] Comment on above: Performed By: #### 3 0738 ####[facility] [place] [address], [facility] PCO2 41.5 mmHg Normal 35.0-45.0 [facility] Comment on above: Performed By: #### 3 0738 ####[facility] [place] [address], [facility] pH (Bld) 7.41 [pH] Normal 7.35-7.45 [facility] Comment on above: Performed By: #### 3 0738 ####[facility] [place] [address], [facility] Potassium [Moles/Vol] 4.3 mmol/L Normal 3.5-4.9 [facility] Comment on above: Performed By: #### 3 0738 ####[facility] [place] [address], [facility] Sodium [Moles/Vol] 138 mmol/L Normal 138-146 [facility] Comment on above: Performed By: #### 3 0738 ####[facility] [place] [address], [facility] BASE EXCESS 1.0 mmol/L Normal -2.0-3.0 [facility] Comment on above: Performed By: #### 3 0738 ####[facility] [place] [address], [facility] Glucose [Mass/Vol] 127 mg/dL High 70-105 [facility] Comment on above: Performed By: #### 3 0738 ####[facility] [place] [address], [facility] Hematocrit (Bld) [Volume fraction] 31 % Low 38-51 [facility] Comment on above: Performed By: #### 3 0738 ####[facility] [place] [address], [facility] Hemoglobin (Bld) [Mass/Vol] 10.5 g/dL Low 12.0-17.0 [facility] Comment on above: Performed By: #### 3 0738 ####[facility] [place] [address], [facility] IONIZED CALCIUM 1.09 mmol/L Low 1.12-1.32 [facility] Comment on above: Performed By: #### 3 0738 ####[facility] [place] [address], [facility] Oxygen (Bld) [Partial pressure] 351.0 mm[Hg] High 80.0-105.0 [facility] Comment on above: Performed By: #### 3 0738 ####[facility] [place] [address], [facility] PCO2 38.6 mmHg Normal 35.0-45.0 [facility] Comment on above: Performed By: #### 3 0738 ####[facility] [place] [address], [facility] pH (Bld) 7.43 [pH] Normal 7.35-7.45 [facility] Comment on above: Performed By: #### 3 0738 ####[facility] [place] [address], [facility] Potassium [Moles/Vol] 4.4 mmol/L Normal 3.5-4.9 [facility] Comment on above: Performed By: #### 3 0738 ####[facility] [place] [address], [facility] Sodium [Moles/Vol] 138 mmol/L Normal 138-146 [facility] Comment on above: Performed By: #### 3 0738 ####[facility] [place] [address], [facility] BASE EXCESS 4.0 mmol/L High -2.0-3.0 [facility] Comment on above: Performed By: #### 3 0738 ####[facility] [place] [address], [facility] Glucose [Mass/Vol] 117 mg/dL High 70-105 [facility] Comment on above: Performed By: #### 3 0738 ####[facility] Hematocrit (Bld) [Volume fraction] 29 % Low 38-51 [facility] Comment on above: Performed By: #### 3 0738 ####[place] [id number] [address] Hemoglobin (Bld) [Mass/Vol] 9.9 g/dL Low 12.0-17.0 [facility] Comment on above: Performed By: #### 3 0738 ####[place] [id number] IONIZED CALCIUM 1.02 mmol/L Low 1.12-1.32 [facility] Comment on above: Performed By: #### 3 0738 ####[place] [id number] [address] Oxygen (Bld) [Partial pressure] 531.0 mm[Hg] High 80.0-105.0 [facility] Comment on above: Performed By: #### 3 0738 ####[facility] [place] [address], [facility] PCO2 42.7 mmHg Normal 35.0-45.0 [facility] Comment on above: Performed By: #### 3 0738 ####[facility] [place] [address], [facility] pH (Bld) 7.43 [pH] Normal 7.35-7.45 [facility] Comment on above: Performed By: #### 3 0738 ####[facility] [place] [address], [facility] Potassium [Moles/Vol] 4.1 mmol/L Normal 3.5-4.9 [facility] Comment on above: Performed By: #### 3 0738 ####[facility] [place] [address], [facility] BASE EXCESS 0.0 mmol/L Normal -2.0-3.0 [facility] Comment on above: Performed By: #### 3 0738 ####[facility] [facility] [place] [address], [facility] Glucose [Mass/Vol] 108 mg/dL High 70-105 [facility] Comment on above: Performed By: #### 3 0738 ####[facility] Hematocrit (Bld) [Volume fraction] 27 % Low 38-51 [facility] Comment on above: Performed By: #### 3 0738 ####[facility] [facility] [place] [address], [facility] Hemoglobin (Bld) [Mass/Vol] 9.2 g/dL Low 12.0-17.0 [facility] Comment on above: Performed By: #### 3 0738 ####[facility] [place] [address], [facility] IONIZED CALCIUM 1.04 mmol/L Low 1.12-1.32 [facility] Comment on above: Performed By: #### 3 0738 ####[facility] [place] [address], [facility] Oxygen (Bld) [Partial pressure] 46.0 mm[Hg] Normal [facility] Comment on above: Performed By: #### 3 0738 ####[facility] [place] [address], [facility] PCO2 44.8 mmHg Normal 41.0-51.0 [facility] Comment on above: Performed By: #### 3 0738 ####[facility] [place] [address], [facility] pH (Bld) 7.36 [pH] Normal 7.31-7.41 [facility] Comment on above: Performed By: #### 3 0738 ####[facility] [place] [address], [facility] Potassium [Moles/Vol] 4.5 mmol/L Normal 3.5-4.9 [facility] Comment on above: Performed By: #### 3 0738 ####[facility] [place] [address], [facility] Sodium [Moles/Vol] 140 mmol/L Normal 138-146 [facility] Comment on above: Performed By: #### 3 0738 ####[facility] [place] [address], [facility] BASE EXCESS -1.0 mmol/L Normal -2.0-3.0 [facility] Comment on above: Performed By: #### 3 0738 ####[facility] [place] [address], [facility] Glucose [Mass/Vol] 123 mg/dL High 70-105 [facility] Comment on above: Performed By: #### 3 0738 ####[facility] [place] [address], [facility] Hematocrit (Bld) [Volume fraction] 38 % Normal 38-51 [facility] Comment on above: Performed By: #### 3 0738 ####[facility] [place] [address], [facility] Hemoglobin (Bld) [Mass/Vol] 12.9 g/dL Normal 12.0-17.0 [facility] Comment on above: Performed By: #### 3 0738 ####[facility] [facility].[address] IONIZED CALCIUM 1.27 mmol/L Normal 1.12-1.32 [facility] Comment on above: Performed By: #### 3 0738 ####[facility] [facility].[address] Oxygen (Bld) [Partial pressure] 146.0 mm[Hg] High 80.0-105.0 [facility] Comment on above: Performed By: #### 3 0738 ####[address] [place] [address], [facility] PCO2 47.8 mmHg High 35.0-45.0 [facility] Comment on above: Performed By: #### 3 0738 ####[place] [id number] [facility].[address] pH (Bld) 7.33 [pH] Low 7.35-7.45 [facility] Comment on above: Performed By: #### 3 0738 ####[place] [id number] [facility].[address] Potassium [Moles/Vol] 3.8 mmol/L Normal 3.5-4.9 [facility] Comment on above: Performed By: #### 3 0738 ####[facility] Sodium [Moles/Vol] 141 mmol/L Normal 138-146 [facility] Comment on above: Performed By: #### 3 0738 ####[place] [id number] [facility] [place] [address], [facility] BASE EXCESS 0.0 mmol/L Normal -2.0-3.0 [facility] Comment on above: Performed By: #### 3 0738 ####[facility] [place] [address], [facility] Glucose [Mass/Vol] 130 mg/dL High 70-105 [facility] Comment on above: Performed By: #### 3 0738 ####[facility] [place] [address], [place] Hematocrit (Bld) [Volume fraction] 42 % Normal 38-51 [facility] Comment on above: Performed By: #### 3 0738 ####[facility] [place] [address], [facility] Hemoglobin (Bld) [Mass/Vol] 14.3 g/dL Normal 12.0-17.0 [facility] Comment on above: Performed By: #### 3 0738 ####[facility] [place] [address], [facility] IONIZED CALCIUM 1.30 mmol/L Normal 1.12-1.32 [facility] Comment on above: Performed By: #### 3 0738 ####[facility] [place] [address], [facility] Oxygen (Bld) [Partial pressure] 218.0 mm[Hg] High 80.0-105.0 [facility] Comment on above: Performed By: #### 3 0738 ####[facility] [place] [address], [facility] PCO2 43.5 mmHg Normal 35.0-45.0 [facility] Comment on above: Performed By: #### 3 0738 ####[facility] [place] [address], [place] pH (Bld) 7.38 [pH] Normal 7.35-7.45 [facility] Comment on above: Performed By: #### 3 0738 ####[facility] [place] [address], [place] Potassium [Moles/Vol] 3.8 mmol/L Normal 3.5-4.9 [facility] Comment on above: Performed By: #### 3 0738 ####[facility] [place] [address], [place] Sodium [Moles/Vol] 141 mmol/L Normal 138-146 [facility] Comment on above: Performed By: #### 3 0738 ####[facility] [place] [address], [place] PHOSPHORUS BLOODon Phosphate [Mass/Vol] 3.4 mg/dL Normal 2.5-5.0 [facility] Comment on above: Order Comment: No: D o not add to previous draw Performed By: #### 0 0071, 68413, [id number] ####[facility] [place] [address], [place] POC GLUCOSE LABon 01-03-2022 Glucose [Mass/Vol] 156 mg/dL High 70-100 [facility] Comment on above: Performed By: #### 8 5499 ####[facility] [place] [address], [place] Glucose [Mass/Vol] 160 mg/dL High 70-100 [facility] Comment on above: Performed By: #### 8 5499 ####[facility] [place] [address], [place] Glucose [Mass/Vol] 146 mg/dL High 70-100 [facility] Comment on above: Performed By: #### 8 5499 ####[facility] [place] [address], [place] Glucose [Mass/Vol] 135 mg/dL High 70-100 [facility] Comment on above: Performed By: #### 8 5499 ####[facility] [place] [address], [place] Glucose [Mass/Vol] 136 mg/dL High 70-100 [facility] Comment on above: Performed By: #### 8 5499 ####[facility] [facility] [address] PORTABLE CHEST 1 VIEWon 06 PORTABLE CHEST 1 VIEW [facility] Department of Radiology [address] [place] [address] Patient Name: OSWALD OCHOA : 1955 Sex: M Age: Race: White Pt. Location: [place] [address] Patient Status: I Ordered Date: 01/03/2022 4:40:00 PM Completed Date: 01/03/2022 06:02 PM Requesting Provider: FRANCISCO HENLEY Attending Provider: JAZMNI FRANCO Report Copy To: Signs & Symptoms: Post CABG History: Comments: Check Chest Tube Position, ON ARRIVAL TO CVU Exam: PORTABLE CHEST 1 VIEW PORTABLE CHEST 1 VIEW 01/03/2022 6:02 PM CLINICAL INDICATIONS: Post CABG TECHNOLOGIST COMMENTS: Post CABG QUESTION FOR THE RADIOLOGIST: Check Chest Tube Position, ON ARRIVAL TO CVU PROTOCOL: AP(PA) view was obtained. COMPARISON: None FINDINGS: [place] catheter on the right tip in superior [...] lobe Electronically signed: Tang Pino. Transcribed by: [id number], User Resident: Electronically Signed by: TANG PINO @ 01/03/2022 06:07 PM Normal [facility] Comment on above: Order Comment: Check Chest Tube Position, ON ARRIVAL TO CVU PROTHROMBIN TIMEon 2 INR Coag (PPP) [Relative time] 1.28 {INR} High 0.91-1.16 [facility] Comment on above: Order Comment: [...] CHEST 1995;[id number]. Performed By: #### 5 7307, 08219 ####[facility] PT Coag (PPP) [Time] 15.9 s High 12.3-14.8 [facility] Comment on above: Order Comment: No: D o not add to previous draw Result Comment: ALL RESULTS MUST BE INTERPRETED WITH RESPECT TO BLOOD DRAWING ARTIFACT OR DILUTION ERROR OF ANTICOAGULANT AT THE TIME OF SAMPLING. Performed By: #### [id number], [id number] ####[facility] [facility].[address] INR Coag (PPP) [Relative time] 1.45 {INR} High 0.91-1.16 [facility] Comment on above: Result Comment: [...] CHEST 1995;108:[id number]. Performed By: #### 5 7307, 56457, 53156 ####[facility]3000 [facility].[address] PT Coag (PPP) [Time] 17.5 s High 12.3-14.8 [facility] Comment on above: Result Comment: ALL RESULTS MUST BE INTERPRETED WITH RESPECT TO BLOOD DRAWING ARTIFACT OR DILUTION ERROR OF ANTICOAGULANT AT THE TIME OF SAMPLING. Performed By: #### 5 7307, 43871, 86609 ####[facility]3000 [facility] [place] [address], [facility] RBC'S 2 UNITSon 01-03-2022 CROSSMATCH INTERP 1 COMP Normal [facility] Comment on above: Performed By: #### 8 6002 ####[facility] [place] [address], [facility] CROSSMATCH INTERP 2 COMP Normal [facility] Comment on above: Performed By: #### 8 6002 ####[facility] [place] [place] [address], [facility] PRODUCT CODE 1 E0685 Normal [facility] Comment on above: Performed By: #### 8 6002 ####[facility]3000 [place] [place] [address], [facility] PRODUCT CODE 2 E0336 Normal [facility] Comment on above: Performed By: #### 8 6002 ####[place] [id number] [place] [address], [facility] PRODUCT STATUS 1 RE Normal [facility] Comment on above: Result Comment: Resu lt changed by IF on 01/03/2022 12:35. The previous value was XM. Result changed by IF on 01/03/2022 17:59. The previous value was IS. Result changed by IF on 01/06/2022 07:17. The previous value was XM. Performed By: #### 8 6002 ####[place] [id number] [facility] [address], [facility] PRODUCT STATUS 2 RE Normal [facility] Comment on above: Result Comment: Resu lt changed by IF on 01/03/2022 12:35. The previous value was XM. Result changed by IF on 01/03/2022 17:59. The previous value was IS. Result changed by IF on 01/06/2022 07:17. The previous value was XM. Performed By: #### 8 6002 ####[facility] [place] [address], [facility] UNIT ABO 1 O Normal [facility] Comment on above: Performed By: #### 8 6002 ####[facility] [place] [address], [facility] UNIT ABO 2 O Normal [facility] Comment on above: Performed By: #### 8 6002 ####[facility] UNIT ID 1 [id number] Normal [facility] Comment on above: Performed By: #### 8 6002 ####[facility] [facility].[address] UNIT ID 2 [id number] Normal [facility] Comment on above: Performed By: #### 8 6002 ####[facility] [facility].[address] UNIT RH 1 Negative Normal [facility] Comment on above: Performed By: #### 8 6002 ####[facility]3000 [facility].[address] UNIT RH 2 Negative Normal [facility] Comment on above: Performed By: #### 8 6002 ####[facility]3000 [facility].[address] APTTon 01-02-2022 aPTT Coag (Bld) [Time] 32.1 s Normal 25.0-35.0 [facility] Comment on above: Order Comment: [...] THIS PURPOSE. Performed By: #### 5 7307, 27164 ####[facility]3000 [facility].[address] BASIC METABOLIC PANELon - Calcium [Mass/Vol] 9.5 mg/dL Normal 8.6-10.3 [facility] Comment on above: Order Comment: No: D o not add to previous draw Performed By: #### 1 0070, 15613, 57321, 83172 ####[facility] [place] [address], [facility] Chloride [Moles/Vol] 105 mmol/L Normal 98-107 [facility] Comment on above: Order Comment: No: D o not add to previous draw Performed By: #### 1 0070, 97324, 81504, 81066 ####[facility] [place] [address], [facility] CO2 [Moles/Vol] 24 mmol/L Normal 21-31 [facility] Comment on above: Order Comment: No: D o not add to previous draw Performed By: #### 1 0070, 44611, 76638, 96895 ####[facility] [facility] [place] [address], [facility] Creatinine [Mass/Vol] 0.93 mg/dL Normal 0.70-1.30 [facility] Comment on above: Order Comment: No: D o not add to previous draw Performed By: #### 1 0070, 96579, 28674, 78677 ####[facility] [place] [address], [facility] GFR/1.73 sq M.predicted among blacks MDRD (S/P/Bld) [Vol rate/Area] mL/min/{1.73_m2} Normal >60 [facility] Comment on above: Order Comment: No: D o not add to previous draw Performed By: #### 1 0070, 96410, 56562, 29909 ####[facility] [place] [address], [facility] GFR/1.73 sq M.predicted among non-blacks MDRD (S/P/Bld) [Vol rate/Area] mL/min/{1.73_m2} Normal >60 [facility] Comment on above: Order Comment: No: D o not add to previous draw Performed By: #### 1 0070, 93106, 02948, 85532 ####[facility] [place] [address], [facility] Glucose [Mass/Vol] 127 mg/dL High 70-100 [facility] Comment on above: Order Comment: No: D o not add to previous draw Performed By: #### 1 0070, 96716, 15451, 21469 ####[facility] [place] [address], [facility] Potassium [Moles/Vol] 3.9 mmol/L Normal 3.5-5.1 [facility] Comment on above: Order Comment: No: D o not add to previous draw Performed By: #### 1 0070, 22884, 51823, 86016 ####[facility] [place] [address], [facility] Sodium [Moles/Vol] 138 mmol/L Normal 136-145 [facility] Comment on above: Order Comment: No: D o not add to previous draw Performed By: #### 1 0070, 41126, 40902, 92471 ####[facility] [facility] [place] [address], [facility] Urea nitrogen [Mass/Vol] 13 mg/dL Normal 7-25 [facility] Comment on above: Order Comment: No: D o not add to previous draw Performed By: #### 1 0070, 03295, 65171, 70470 ####[facility] [id number], [facility] CBC COMPLETE BLOOD COUNTon 0 - Erythrocyte distribution width (RBC) [Ratio] 12.8 % Normal 11.5-15.0 [facility] Comment on above: Order Comment: No: D o not add to previous draw Performed By: #### 5 0608 ####[facility] [place] [address], [place] Hematocrit (Bld) [Volume fraction] 41.4 % Normal 39.0-50.0 [facility] Comment on above: Order Comment: No: D o not add to previous draw Performed By: #### 5 0608 ####[facility] [facility].[address] Hemoglobin (Bld) [Mass/Vol] 14.6 g/dL Normal 13.0-17.0 [facility] Comment on above: Order Comment: No: D o not add to previous draw Performed By: #### 5 0608 ####[facility] MCH (RBC) [Entitic mass] 30.1 pg Normal 27.0-33.0 [facility] Comment on above: Order Comment: No: D o not add to previous draw Performed By: #### 5 0608 ####[facility] MCHC (RBC) [Mass/Vol] 35.3 g/dL High 32.0-35.0 [facility] Comment on above: Order Comment: No: D o not add to previous draw Performed By: #### 5 0608 ####[facility]3000 [facility].[address] MCV (RBC) [Entitic vol] 85.4 fL Normal 82.0-98.0 [facility] Comment on above: Order Comment: No: D o not add to previous draw Performed By: #### 5 0608 ####[facility]3000 [facility].[address] Nucleated RBC/100 WBC (Bld) [Ratio] 0 % Normal 0-0 [facility] Comment on above: Order Comment: No: D o not add to previous draw Performed By: #### 5 0608 ####[facility] PLAT CNT 218 10*3/uL Normal 150-400 [facility] Comment on above: Order Comment: No: D o not add to previous draw Performed By: #### 5 0608 ####[facility] [facility] [place] [address], [facility] RBC (Bld) [#/Vol] 4.85 10*6/uL Normal 4.20-5.70 [facility] Comment on above: Order Comment: No: D o not add to previous draw Performed By: #### 5 0608 ####[facility] [facility] [place] [address], [facility] WBC (Bld) [#/Vol] 6.95 10*3/uL Normal 4.00-10.60 [facility] Comment on above: Order Comment: No: D o not add to previous draw Performed By: #### 5 0608 ####[facility]3000 [facility].[address] LIPID PROFILEon 01-02-2022 Cholesterol [Mass/Vol] 110 mg/dL Low 120-200 [facility] Comment on above: Order Comment: Check Chest Tube Position, ON ARRIVAL TO CVU Result Comment: CHOL ESTEROL REFERENCE RANGE: 20 YEARS AND OLDER CARDIOVASCULAR RISK Less than 200 mg/dl Low Risk 200 to 239 mg/dl Borderline Risk 240 mg/dl and greater High Risk Performed By: #### 4 6413 ####[facility]3000 [facility].[address] Cholesterol in HDL [Mass/Vol] 29 mg/dL Normal 23-92 [facility] Comment on above: Order Comment: Check Chest Tube Position, ON ARRIVAL TO CVU Result Comment: Slig ht variation in normal range could be due to gender and/or age. HDL CHOLESTEROL REFERENCE RANGE: 20 years and older Cardiovascular Risk > or =60 mg/dL Desirable 40 TO 59 mg/dL Low Risk <40 mg/dL High Risk Performed By: #### 4 6456 ####[facility] [facility] [place] [address], [facility] Cholesterol in LDL [Mass/Vol] 56 mg/dL Normal 0-130 [facility] Comment on above: Order Comment: Check Chest Tube Position, ON ARRIVAL TO CVU Result Comment: LDL IS A CALCULATION LDL IS ONLY VALID IF THE TRIG IS LESS THAN 400. Performed By: #### 4 6413 ####[facility] Cholesterol.total/ Cholesterol in HDL [Mass ratio] 3.8 {ratio} Normal .0-4.5 [facility] Comment on above: Order Comment: Check Chest Tube Position, ON ARRIVAL TO CVU Performed By: #### 4 6413 ####[facility] NON-HDL CHOLESTEROL 81 mg/dL Normal [facility] Comment on above: Order Comment: Check Chest Tube Position, ON ARRIVAL TO CVU Performed By: #### 4 6413 ####[facility] [facility].[address] Triglyceride [Mass/Vol] 124 mg/dL Normal 40-149 [facility] Comment on above: Order Comment: Check Chest Tube Position, ON ARRIVAL TO CVU Result Comment: TRIG LYCERIDE REFERENCE RANGE: 20 YEARS AND OLDER CARDIOVASCULAR RISK LESS THAN 150 mg/dl LOW RISK 150 TO 199 mg/dl BORDERLINE RISK 200 mg/dl AND GREATER HIGH RISK Performed By: #### 4 6413 ####[facility]3000 [facility].[address] VLDL CHOL 25 mg/dL Normal 0-40 [facility] Comment on above: Order Comment: Check Chest Tube Position, ON ARRIVAL TO CVU Performed By: #### 4 6413 ####[facility]3000 [facility].[address] MAGNESIUM BLOODon 01-02-2022 Magnesium [Mass/Vol] 2.1 mg/dL Normal 1.9-2.7 [facility] Comment on above: Order Comment: No: D o not add to previous draw Performed By: #### 1 0070, 28055, 89391, 85916 ####[facility] [place] [address], [place] PHOSPHORUS BLOODon 2 Phosphate [Mass/Vol] 3.9 mg/dL Normal 2.5-5.0 [facility] Comment on above: Order Comment: No: D o not add to previous draw Performed By: #### 1 0070, 57598, 26156, 94616 ####[facility] [place] [address], [place] POC GLUCOSE LABon 01-02-2022 Glucose [Mass/Vol] 149 mg/dL High 70-100 [facility] Comment on above: Performed By: #### 8 5499 ####[facility] [place] [address], [place] Glucose [Mass/Vol] 129 mg/dL High 70-100 [facility] Comment on above: Performed By: #### 8 5499 ####[facility] [place] [address], [place] Glucose [Mass/Vol] 203 mg/dL High 70-100 [facility] Comment on above: Performed By: #### 8 5499 ####[facility] [place] [address], [place] Glucose [Mass/Vol] 139 mg/dL High 70-100 [facility] Comment on above: Performed By: #### 8 5499 ####[facility] [place] [address], [place] Glucose [Mass/Vol] 153 mg/dL High 70-100 [facility] Comment on above: Performed By: #### 8 5499 ####[facility] [place] [address], [place] POC SARS COV2 ANTIGEN NEGATI VEon 01-02-2022 POC SARS COV2 ANTIGEN NEG Negative Normal NEGATIVE [facility] Comment on above: Result Comment: [...] antigen from SARS-CoV-2 in direct nasopharyngeal swab (TOLL BOOTH OPERATOR) specimens from individuals who are suspected of [...] of Accreditation. Performed By: #### 3 2044 ####[address] PORTABLE CHEST 1 VIEWon 06-0 PORTABLE CHEST 1 VIEW [facility] Department of Radiology [address] [place] [address] Patient Name: OSWALD OCHOA : 1955 Sex: M Age: Race: White Pt. Location: [id number] Patient Status: I Ordered Date: 01/02/2022 9:50:00 [...] unchanged Electronically signed: Tang Pino. Transcribed by: [email or web address], User Resident: Electronically Signed by: TANG PINO @ 01/02/2022 10:53 AM Normal [facility] Comment on above: Order Comment: post thoracotomy PROTHROMBIN TIMEon 2 INR Coag (PPP) [Relative time] 1.01 {INR} Normal 0.91-1.16 [facility] Comment on above: Order Comment: [...] CHEST 1995;108:[id number]. Performed By: #### 5 7307, 68815 ####[facility] [facility].[address] PT Coag (PPP) [Time] 13.3 s Normal 12.3-14.8 [facility] Comment on above: Order Comment: post thoracotomy Result Comment: ALL RESULTS MUST BE INTERPRETED WITH RESPECT TO BLOOD DRAWING ARTIFACT OR DILUTION ERROR OF ANTICOAGULANT AT THE TIME OF SAMPLING. Performed By: #### 5 7307, 35353 ####[facility] [place] [address], [facility] RBC'S 2 UNITSon 01-02-2022 CROSSMATCH INTERP 1 COMP Normal [facility] Comment on above: Performed By: #### 8 6002 ####[facility] [facility] [place] [address], [facility] CROSSMATCH INTERP 2 COMP Normal [facility] Comment on above: Performed By: #### 8 6002 ####[facility] [facility] [place] [address], [facility] PRODUCT CODE 1 E0336 Normal [facility] Comment on above: Performed By: #### 8 6002 ####[facility] [facility] [place] [address], [facility] PRODUCT CODE 2 E0336 Normal [facility] Comment on above: Performed By: #### 8 6002 ####[facility] [facility] [place] [address], [facility] PRODUCT STATUS 1 RE Normal [facility] Comment on above: Result Comment: Resu lt changed by IF on 01/03/2022 12:35. The previous value was XM. Result changed by IF on 01/03/2022 17:59. The previous value was IS. Result changed by IF on 01/06/2022 07:17. The previous value was XM. Performed By: #### 8 6002 ####[facility] [facility] [place] [address], [facility] PRODUCT STATUS 2 RE Normal [facility] Comment on above: Result Comment: Resu lt changed by IF on 01/03/2022 12:35. The previous value was XM. Result changed by IF on 01/03/2022 17:59. The previous value was IS. Result changed by IF on 01/06/2022 07:17. The previous value was XM. Performed By: #### 8 6002 ####[facility] [facility] [place] [address], [facility] UNIT ABO 1 O Normal [facility] Comment on above: Performed By: #### 8 6002 ####[facility] [facility] [place] [address], [facility] UNIT ABO 2 O Normal [facility] Comment on above: Performed By: #### 8 6002 ####[facility] [facility] [place] [address], [facility] UNIT ID 1 [id number] Normal [facility] Comment on above: Performed By: #### 8 6002 ####[facility] [facility] [place] [address], [facility] UNIT ID 2 [id number] Normal [facility] Comment on above: Performed By: #### 8 6002 ####[facility] [facility] [place] [address], [facility] UNIT RH 1 Negative Normal [facility] Comment on above: Performed By: #### 8 6002 ####[facility] [place] [address], [facility] UNIT RH 2 Negative Normal [facility] Comment on above: Performed By: #### 8 6002 ####[facility] [facility].[address] TROPONIN-Ion 01-02-2022 Troponin I.cardiac [Mass/Vol] 0.00 ng/mL Normal 0.00-0.04 [facility] Comment on above: Result Comment: REFE RENCE RANGES: 0.00 - 0.04 ng/ml NORMAL 0.05 - 0.50 ng/ml INDETERMINATE > 0.50 ng/ml CONSISTENT WITH AN M.I. Performed By: #### 1 0070, 83719, 01081, 03262 ####[facility]3000 [facility].[address] TYPE AND SCREENon 01-02-2022 ABO INTERPRETATION O Normal [facility] Comment on above: Performed By: #### 6 2586 ####[facility] [facility].[address] RH INTERPRETATION Negative Normal [facility] Comment on above: Performed By: #### 6 2586 ####[place] [id number] [address] URINALYSIS REFLEXon 01-03-20 22 Appearance (U) CLEAR Normal CLEAR [facility] Comment on above: Order Comment: No: D o not add to previous drawCriteria for reflexing a culture was not met. Please call the lab [id number] within 24 hours of collection time if culture is needed Performed By: #### 3 0921 ####[facility] [facility] [place] [address], [facility] Bilirubin Ql (U) Negative Normal NEGATIVE [facility] Comment on above: Order Comment: No: D o not add to previous drawCriteria for reflexing a culture was not met. Please call the lab [id number] within 24 hours of collection time if culture is needed Performed By: #### 3 9960 ####[facility] [place] [address], [facility] Color (U) YELLOW Normal YELLOW [facility] Comment on above: Order Comment: No: D o not add to previous drawCriteria for reflexing a culture was not met. Please call the lab [id number] within 24 hours of collection time if culture is needed Performed By: #### 3 0965 ####[facility] [place] [address], [facility] EPIS NONE SEEN Normal FEW,OCC,NO NE SEEN [facility] Comment on above: Order Comment: No: D o not add to previous drawCriteria for reflexing a culture was not met. Please call the lab [id number] within 24 hours of collection time if culture is needed Performed By: #### 3 0965 ####[facility] [place] [address], [facility] Glucose Ql (U) Negative Normal NEGATIVE [facility] Comment on above: Order Comment: No: D o not add to previous drawCriteria for reflexing a culture was not met. Please call the lab [id number] within 24 hours of collection time if culture is needed Performed By: #### 3 0965 ####[facility] [facility] [place] [address], [facility] Hemoglobin Ql (U) Negative Normal NEGATIVE [facility] Comment on above: Order Comment: No: D o not add to previous drawCriteria for reflexing a culture was not met. Please call the lab [id number] within 24 hours of collection time if culture is needed Performed By: #### 3 0965 ####[facility] [facility] [place] [address], [place] KETONE Negative Normal NEGATIVE [facility] Comment on above: Order Comment: No: D o not add to previous drawCriteria for reflexing a culture was not met. Please call the lab [id number] within 24 hours of collection time if culture is needed Performed By: #### 3 0965 ####[facility] [place] [address], [facility] LEUK ASIF Negative Normal NEGATIVE [facility] Comment on above: Order Comment: No: D o not add to previous drawCriteria for reflexing a culture was not met. Please call the lab [id number] within 24 hours of collection time if culture is needed Performed By: #### 3 0965 ####[facility] [place] [address], [facility] Nitrite Ql (U) Negative Normal NEGATIVE [facility] Comment on above: Order Comment: No: D o not add to previous drawCriteria for reflexing a culture was not met. Please call the lab [id number] within 24 hours of collection time if culture is needed Performed By: #### 3 0965 ####[facility] [facility] [place] [address], [facility] pH (U) 7.0 [pH] Normal 5.0-8.0 [facility] Comment on above: Order Comment: No: D o not add to previous drawCriteria for reflexing a culture was not met. Please call the lab [id number] within 24 hours of collection time if culture is needed Performed By: #### 3 0965 ####[facility] [facility] [place] [address], [facility] Protein Ql (U) Negative Normal NEGATIVE [facility] Comment on above: Order Comment: No: D o not add to previous drawCriteria for reflexing a culture was not met. Please call the lab [email or web address] within 24 hours of collection time if culture is needed Performed By: #### 3 0965 ####[facility] [facility] [place] [address], [facility] RBC NONE SEEN Normal NONE SEEN [facility] Comment on above: Order Comment: No: D o not add to previous drawCriteria for reflexing a culture was not met. Please call the lab [email or web address] within 24 hours of collection time if culture is needed Performed By: #### 3 0965 ####[facility] SPEC GRAV 1.009 Low 1.015-1.02 0 [facility] Comment on above: Order Comment: No: D o not add to previous drawCriteria for reflexing a culture was not met. Please call the lab [id number] within 24 hours of collection time if culture is needed Performed By: #### 3 0965 ####[facility] [facility] [place] [address], [facility] UA COMMENT 2 UROBILINOGEN (E.U./DL)= 2.0 Normal [facility] Comment on above: Order Comment: No: D o not add to previous drawCriteria for reflexing a culture was not met. Please call the lab [email or web address] within 24 hours of collection time if culture is needed Performed By: #### 3 0965 ####[facility] [facility].[address] WBC UA NONE SEEN Normal NONE SEEN [facility] Comment on above: Order Comment: No: D o not add to previous drawCriteria for reflexing a culture was not met. Please call the lab [id number] within 24 hours of collection time if culture is needed Performed By: #### 3 0965 ####[facility] [facility].[address] APTTon 01-01-2022 aPTT Coag (Bld) [Time] 31.6 s Normal 25.0-35.0 [facility] Comment on above: Order Comment: [...] THIS PURPOSE. Performed By: #### 5 6101, 69596 ####[facility] [facility].[address] BASIC METABOLIC PANELon -0 6-2022 Calcium [Mass/Vol] 9.6 mg/dL Normal 8.6-10.3 [facility] Comment on above: Order Comment: Check Chest Tube Position, ON ARRIVAL TO CVU Performed By: #### 3 5200, 99461, 38900, 46330 ####[facility] [place] [address], [facility] Chloride [Moles/Vol] 105 mmol/L Normal 98-107 [facility] Comment on above: Order Comment: Check Chest Tube Position, ON ARRIVAL TO CVU Performed By: #### 3 5200, 70480, 87023, 07417 ####[facility] [place] [address], [facility] CO2 [Moles/Vol] 25 mmol/L Normal 21-31 [facility] Comment on above: Order Comment: Check Chest Tube Position, ON ARRIVAL TO CVU Performed By: #### 3 5200, 23139, 78627, 23169 ####[facility] [place] [address], [place] Creatinine [Mass/Vol] 1.03 mg/dL Normal 0.70-1.30 [facility] Comment on above: Order Comment: Check Chest Tube Position, ON ARRIVAL TO CVU Performed By: #### 3 5200, 86580, 47012, 00331 ####[facility] [place] [address], [place] GFR/1.73 sq M.predicted among blacks MDRD (S/P/Bld) [Vol rate/Area] mL/min/{1.73_m2} Normal >60 [facility] Comment on above: Order Comment: Check Chest Tube Position, ON ARRIVAL TO CVU Performed By: #### 3 5200, 93847, 25163, 14662 ####[facility] [place] [address], [place] GFR/1.73 sq M.predicted among non-blacks MDRD (S/P/Bld) [Vol rate/Area] mL/min/{1.73_m2} Normal >60 [facility] Comment on above: Order Comment: Check Chest Tube Position, ON ARRIVAL TO CVU Performed By: #### 3 5200, 27683, 57947, 28462 ####[facility] [place] [address], [facility] Glucose [Mass/Vol] 101 mg/dL High 70-100 [facility] Comment on above: Order Comment: Check Chest Tube Position, ON ARRIVAL TO CVU Performed By: #### 3 5200, 12888, 06199, 39476 ####[facility] [place] [address], [facility] Potassium [Moles/Vol] 3.9 mmol/L Normal 3.5-5.1 [facility] Comment on above: Order Comment: Check Chest Tube Position, ON ARRIVAL TO CVU Performed By: #### 3 5200, 49046, 69031, 03624 ####[facility] [place] [address], [facility] Sodium [Moles/Vol] 138 mmol/L Normal 136-145 [facility] Comment on above: Order Comment: Check Chest Tube Position, ON ARRIVAL TO CVU Performed By: #### 3 5200, 47293, 22960, 08556 ####[facility] [place] [address], [facility] Urea nitrogen [Mass/Vol] 13 mg/dL Normal 7-25 [facility] Comment on above: Order Comment: Check Chest Tube Position, ON ARRIVAL TO CVU Performed By: #### 3 5200, 09598, 42604, 22167 ####[facility] [place] [address], [facility] BNP (B-TYPE NATRIURETIC PEPT [place])on 01-01-2022 Natriuretic peptide B (Bld) [Mass/Vol] 19 pg/mL Normal 0-100 [facility] Comment on above: Order Comment: Check Chest Tube Position Result Comment: Give n the appropriate clinical setting a BNP result of >100 pg/mL indicates congestive heart failure. Performed By: #### 8 5123 ####[facility] CBC W/DIFFon 01-01-2022 ABS IMM GRANS 0.0 10*3/uL Normal 0.0-0.2 [facility] Comment on above: Performed By: #### 5 0103 ####[facility] ABS NEUTROPHILS 4.9 10*3/uL Normal 1.6-7.6 [facility] Comment on above: Performed By: #### 5 0103 ####[facility] Basophils (Bld) [#/Vol] 0.0 10*3/uL Normal 0.0-0.2 [facility] Comment on above: Performed By: #### 5 0103 ####[facility] Basophils/100 WBC (Bld) 0.5 % Normal 0.0-1.0 [facility] Comment on above: Performed By: #### 5 0103 ####[facility] [place] [address], [facility] Eosinophils (Bld) [#/Vol] 0.1 10*3/uL Normal 0.0-0.5 [facility] Comment on above: Performed By: #### 5 0103 ####[facility] [place] [address], [facility] Eosinophils/100 WBC (Bld) 1.8 % Normal 0.0-6.0 [facility] Comment on above: Performed By: #### 5 0103 ####[facility] Erythrocyte distribution width (RBC) [Ratio] 12.6 % Normal 11.5-15.0 [facility] Comment on above: Performed By: #### 5 0103 ####[facility] [facility].[address] Hematocrit (Bld) [Volume fraction] 40.4 % Normal 39.0-50.0 [facility] Comment on above: Performed By: #### 5 0103 ####[facility] [facility].[address] Hemoglobin (Bld) [Mass/Vol] 14.2 g/dL Normal 13.0-17.0 [facility] Comment on above: Performed By: #### 5 3 ####[facility] IMMATURE GRANS 0.3 % Normal 0.0-1.0 [facility] Comment on above: Performed By: #### 5 3 ####[facility] Lymphocytes (Bld) [#/Vol] 2.2 10*3/uL Normal 1.2-4.0 [facility] Comment on above: Performed By: #### 5 3 ####[facility] Lymphocytes/100 WBC (Bld) 28.0 % Normal 20.0-45.0 [facility] Comment on above: Performed By: #### 5 3 ####[facility] [facility].[address] MCH (RBC) [Entitic mass] 30.1 pg Normal 27.0-33.0 [facility] Comment on above: Performed By: #### 3 ####[facility] [facility].[address] MCHC (RBC) [Mass/Vol] 35.1 g/dL High 32.0-35.0 [facility] Comment on above: Performed By: #### 5 0103 ####[facility] [facility].[address] MCV (RBC) [Entitic vol] 85.6 fL Normal 82.0-98.0 [facility] Comment on above: Performed By: #### 5 0103 ####[facility] [facility].[address] Monocytes (Bld) [#/Vol] 0.7 10*3/uL Normal 0.1-1.0 [facility] Comment on above: Performed By: #### 5 3 ####[facility] [facility].[address] MONOS 8.5 % Normal 5.0-12.0 [facility] Comment on above: Performed By: #### 5 3 ####[facility] Neutrophils/100 WBC (Bld) 60.9 % Normal 40.0-72.0 [facility] Comment on above: Performed By: #### 5 3 ####[facility] Nucleated RBC/100 WBC (Bld) [Ratio] 0 % Normal 0-0 [facility] Comment on above: Performed By: #### 5 3 ####[facility] [facility] [place] [address], [facility] PLAT CNT 237 10*3/uL Normal 150-400 [facility] Comment on above: Performed By: #### 5 3 ####[facility] [facility] [place] [address], [facility] RBC (Bld) [#/Vol] 4.72 10*6/uL Normal 4.20-5.70 [facility] Comment on above: Performed By: #### 5 0103 ####[facility] [facility].[address] WBC (Bld) [#/Vol] 7.96 10*3/uL Normal 4.00-10.60 [facility] Comment on above: Performed By: #### 5 0103 ####[facility] [facility].[address] HEMOGLOBIN A1Con 01-01-2022 Glucose [Moles/Vol] 137 mmol/L Normal [facility] Comment on above: Order Comment: evalu ate Performed By: #### 3 1791 ####[facility] [facility].[address] HbA1c (Bld) [Mass fraction] 6.4 % High 4.0-6.0 [facility] Comment on above: Order Comment: evalu ate Performed By: #### 3 1791 ####[facility] [facility].[address] MAGNESIUM BLOODon 01-01-2022 Magnesium [Mass/Vol] 2.1 mg/dL Normal 1.9-2.7 [facility] Comment on above: Order Comment: Check Chest Tube Position, ON ARRIVAL TO CVU Performed By: #### 3 5200, 93522, 20318, 10544 ####[facility] [facility] [place] [address], [facility] PHOSPHORUS BLOODon Phosphate [Mass/Vol] 3.7 mg/dL Normal 2.5-5.0 [facility] Comment on above: Order Comment: Check Chest Tube Position, ON ARRIVAL TO CVU Performed By: #### 3 5200, 23427, 56075, 80574 ####[facility] [facility] [place] [address], [facility] POC GLUCOSE LABon 01-01-2022 Glucose [Mass/Vol] 192 mg/dL High 70-100 [facility] Comment on above: Performed By: #### 8 5499 ####[facility] [place], [place] [id number] [place] [address] Glucose [Mass/Vol] 124 mg/dL High 70-100 [facility] Comment on above: Performed By: #### 8 5499 ####[facility] [place], [place] [id number] [place] [address] PORTABLE CHEST 1 VIEWon PORTABLE CHEST 1 VIEW [facility] Department of Radiology [address] [place] [address] Patient Name: OSWALD OCHOA : 1955 Sex: M Age: Race: White Pt. Location: [address] [place] [address] Patient Status: I Ordered Date: 01/01/2022 4:50:00 [...] unremarkable. Electronically signed: Dia Hodges. Transcribed by: [email or web address], User Resident: Electronically Signed by: DIA HODGES @ 01/01/2022 05:51 PM Normal [facility] PROTHROMBIN TIMEon INR Coag (PPP) [Relative time] 0.99 {INR} Normal 0.91-1.16 [facility] Comment on above: Order Comment: [...] CHEST 1995;[id number]. Performed By: #### 5 6101, 39994 ####[facility] [place] [address], [facility] PT Coag (PPP) [Time] 13.1 s Normal 12.3-14.8 [facility] Comment on above: Order Comment: post thoracotomy Result Comment: ALL RESULTS MUST BE INTERPRETED WITH RESPECT TO BLOOD DRAWING ARTIFACT OR DILUTION ERROR OF ANTICOAGULANT AT THE TIME OF SAMPLING. Performed By: #### 5 6101, 85557 ####[facility] [place] [address], [facility] TROPONIN-Ion 01-01-2022 Troponin I.cardiac [Mass/Vol] 0.00 ng/mL Normal 0.00-0.04 [facility] Comment on above: Order Comment: Check Chest Tube Position Result Comment: REFE RENCE RANGES: 0.00 - 0.04 ng/ml NORMAL 0.05 - 0.50 ng/ml INDETERMINATE > 0.50 ng/ml CONSISTENT WITH AN M.I. Performed By: #### 3 5200 ####[facility] Troponin I.cardiac [Mass/Vol] 0.00 ng/mL Normal 0.00-0.04 [facility] Comment on above: Order Comment: Check Chest Tube Position, ON ARRIVAL TO CVU Result Comment: REFE RENCE RANGES: 0.00 - 0.04 ng/ml NORMAL 0.05 - 0.50 ng/ml INDETERMINATE > 0.50 ng/ml CONSISTENT WITH AN M.I. Performed By: #### 3 5200, 43485, 28291, 87789 ####[facility] Cardiovascular Lab Reporton 12-19-2021 Cardiovascular Lab Report [facility] Patient Name: Don [facility] MR #: [id number] Physician: Alissa Girard of [facility] Service Date: 12/18/2021 Division of Birthdate: 1955 Cardiology Room #: Adult Cardiovascular Services [facility] [address] [place] [address] Cardiovascular Laboratory Report PROCEDURES PERFORMED: 1. Bilateral selective coronary angiography. 2. Left heart catheterization. FINAL IMPRESSIONS: 1. Severe 3 vessel pala coronary artery disease. 2. Normal LVEDP. RECOMMENDATIONS: [...] Galindo MD Date Trans: 12/18/2021 11:28 P/jackie [id number] Normal [facility] Vital Signs Date Time Vital Sign Value Performing Clinician Facility 04-14-2025 11: Body height 172.72 cm Jacob Mckeon MD Work Phone: 04-14-2025 11:13-0400 Body mass index (BMI) [Ratio] 36 kg/m2 Jacob Mckeon MD Work Phone: 04-14-2025 11:130400 Body weight 107.5 kg Jacob Mckeon MD Work Phone: 04-14-2025 11:13-0400 Diastolic blood pressure 79 mm[Hg] Jacob Mckeon MD Work Phone: 04-14-2025 11:13-0400 Heart rate 80 /min Jacob Mckeon MD Work Phone: 04-14-2025 11:13-0400 Systolic blood pressure 145 mm[Hg] Jacob Mckeon MD Work Phone: 03-30-2025 15:13-0400 Body height 172.72 cm Jacob Mckeon MD Work Phone: 03-30-2025 15:13-0400 Body mass index (BMI) [Ratio] 36.8 kg/m2 Jacob Mckeon MD Work Phone: 03-30-2025 15:13-0400 Body weight 109.76 kg Jacob Mckeon MD Work Phone: 03-30-2025 15:13-0400 Diastolic blood pressure 71 mm[Hg] Jacob Mckeon MD Work Phone: 03-30-2025 15:13-0400 Heart rate 64 /min Jacob Mckeon MD Work Phone: 03-30-2025 15:13-0400 Systolic blood pressure 145 mm[Hg] Jacob Mckeon MD Work Phone: 07-06-2024 15:24-0500 Body height 172.7 cm Justus Braxton MD Work Phone: [facility] 07-06-2024 15:24-0500 Body mass index (BMI) [Ratio] 37.07 kg/m2 Justus Braxton MD Work Phone: [facility] 07-06-2024 15:24-0500 Body weight 110.6 kg Justus Braxton MD Work Phone: [facility] 07-06-2024 15:24-0500 Diastolic blood pressure 66 mm[Hg] Justus Braxton MD Work Phone: [facility] 07-06-2024 15:24-0500 Heart rate 56 /min Justus Braxton MD Work Phone: [facility] 07-06-2024 15:24-0500 Systolic blood pressure 163 mm[Hg] Justus Braxton MD Work Phone: [facility] 05-28-2024 09:59-0400 Blood Pressure Location Olivia Galea [facility] 05-28-2024 09:59-0400 Diastolic blood pressure 80 mm[Hg] Olivia Galea [facility] 05-28-2024 09:59-0400 Heart rate 70 /min Olivia Galea [facility] 05-28-2024 09:59-0400 Systolic blood pressure 160 mm[Hg] Olivia Galea [facility] 05-01-2024 10:20-0400 Diastolic blood pressure 79 mm[Hg] Mohamad Mouchli [facility] 05-01-2024 10:20-0400 Heart rate 76 /min Mohamad Mouchli [facility] 05-01-2024 10:20-0400 Mean blood pressure 100 mm[Hg] Mohamad Mouchli [facility] 05-01-2024 10:20-0400 Respiratory rate 15 /min Mohamad Mouchli [facility] 05-01-2024 10:20-0400 SaO2% (BldA) [Mass fraction] 96 % Mohamad Mouchli [facility] 05-01-2024 10:20-0400 Systolic blood pressure 142 mm[Hg] Mohamad Mouchli [facility] 05-01-2024 10:11-0400 Diastolic blood pressure 80 mm[Hg] Mohamad Mouchli [facility] 05-01-2024 10:11-0400 Heart rate 85 /min Mohamad Mouchli [facility] 05-01-2024 10:11-0400 Respiratory rate 14 /min Mohamad Mouchli [facility] 05-01-2024 10:11-0400 SaO2% (BldA) [Mass fraction] 97 % Mohamad Mouchli [facility] 05-01-2024 10:11-0400 Systolic blood pressure 132 mm[Hg] Mohamad Mouchli [facility] 05-01-2024 10:10-0400 Diastolic blood pressure 80 mm[Hg] Mohamad Mouchli [facility] 05-01-2024 10:10-0400 Heart rate 86 /min Mohamad Mouchli [facility] 05-01-2024 10:10-0400 Mean blood pressure 97 mm[Hg] Mohamad Mouchli [facility] 05-01-2024 10:10-0400 Respiratory rate 14 /min Mohamad Mouchli [facility] 05-01-2024 10:10-0400 SaO2% (BldA) [Mass fraction] 97 % Mohamad Mouchli [facility] 05-01-2024 10:10-0400 Systolic blood pressure 130 mm[Hg] Mohamad Mouchli [facility] 05-01-2024 10:05-0400 Blood Pressure Location Mohamad Mouchli [facility] 05-01-2024 10:05-0400 Body temperature 97.88 [degF] Mohamad Mouchli [facility] 05-01-2024 10:05-0400 Mean blood pressure 93 mm[Hg] Mohamad Mouchli [facility] 05-01-2024 08:34-0400 Blood Pressure Location Mohamad Mouchli [facility] 05-01-2024 08:34-0400 Body temperature 97.88 [degF] Mohamad Mouchli [facility] 04-16-2024 10:19-0400 Blood Pressure Location Mohamad Mouchli [facility] 04-16-2024 10:19-0400 Diastolic blood pressure 89 mm[Hg] Mohamad Mouchli [facility] 04-16-2024 10:19-0400 Heart rate 51 /min Mohamad Mouchli [facility] 04-16-2024 10:19-0400 Systolic blood pressure 162 mm[Hg] Mohamad Mouchli [facility] 03-24-2024 11:05-0400 Body height 172.72 cm [facility] 03-24-2024 11:05-0400 Body mass index (BMI) [Ratio] 37.2 kg/m2 03-24-2024 11:05-0400 Body weight 111.13 kg [facility] 03-24-2024 11:05-0400 Diastolic blood pressure 83 mm[Hg] 03-24-2024 11:05-0400 Heart rate 54 /min [facility] 03-24-2024 11:05-0400 Systolic blood pressure 154 mm[Hg] 08-09-2022 10:45-0500 Body height 173.99 cm Jacob Mckeon Other [facility] [employer] Other 08-09-2022 10:45-0500 Body mass index (BMI) [Ratio] 35.81 kg/m2 Jacob Mckeon Other [employer] [facility] [employer] Other 08-09-2022 10:45-0500 Body weight 108.41 kg Jacob Mckeon Other [employer] [facility] [employer] Other 08-09-2022 10:45-0500 Diastolic blood pressure 72 mm[Hg] Jacob Mckeon Other [employer] Other 08-09-2022 10:45-0500 SaO2% (BldA) [Mass fraction] 97 % Jacob Mckeon Other [employer] [facility] [employer] Other 08-09-2022 10:45-0500 Systolic blood pressure 132 mm[Hg] Jacob Mckeon Other [employer] Other 07-25-2022 13:00-0500 Body height 175.26 cm Mary Ontiveros Other [employer] Other 07-25-2022 13:00-0500 Body mass index (BMI) [Ratio] 35.73 kg/m2 Mary Ontiveros Other [employer] Other 07-25-2022 13:00-0500 Body temperature 97.8 [degF] Mary Weston Other [employer] Other 07-25-2022 13:00-0500 Body weight 109.77 kg Mary Ontiveros Other [employer] Other 07-25-2022 13:00-0500 Respiratory rate 18 /min Mary Ontiveros Other [employer] Other 07-25-2022 13:00-0500 SaO2% (BldA) [Mass fraction] 96 % Mary Ontiveros Other [employer] Other 02-28-2022 12:30-0400 Body height 175.26 cm Cass Juárez Other [employer] Other 02-28-2022 12:30-0400 Body mass index (BMI) [Ratio] 34.26 kg/m2 Cass Marquita Other [employer] Other 02-28-2022 12:30-0400 Body temperature 100.6 [degF] Cass Marquita Other [employer] Other 02-28-2022 12:30-0400 Body weight 105.24 kg Cass Marquita Other [employer] Other 02-28-2022 12:30-0400 Respiratory rate 18 /min Cass Marquita Other [employer] Other 02-28-2022 12:30-0400 SaO2% (BldA) [Mass fraction] 97 % Cass Marquita Other [facility] [employer] Other Encounters Encounter Date Encounter Type Care Provider Facility Start: 06-04-2025 ambulatory Shade R WOOD Facili ty:[facility] [place] Start: 04-14-2025 End: 04-14-2025 ambulatory Jacob Mckeon MD Work Phone: [facility] Work Phone: Start: 04-14-2025 End: 04-14-2025 Patient encounter procedure Jacob Mckeon MD -[facility] Work Phone: Start: 03-30-2025 End: 03-30-2025 ambulatory Jacob Mckeon MD Work Phone: [facility] Work Phone: Start: 03-30-2025 End: 03-30-2025 Patient encounter procedure Jacob Mckeon MD -[facility] Work Phone: Start: 01-28-2025 End: 01-28-2025 ambulatory EHAB [facility] Start: 01-28-2025 Non-patient / Non-visit Marcelino melendez [facility] Work Phone: Start: 12-10-2024 End: 12-10-2024 ambulatory Shadeangelique WOOD Facility:[id number] Start: 11-24-2024 End: 11-24-2024 Efrain Velazquez Stepsmith DO Work Phone: [facility] Start: 11-24-2024 End: 11-24-2024 Bamabisai Winkcamchris Velazquez Stepsmith DO Work Phone: [facility] Start: 11-24-2024 End: 11-24-2024 Office outpatient visit 15 minutes Jr. Dinora Snyder DO Work Phone: [facility] Comment on above: Primary osteoarthrit is of left knee (Primary Dx); Acute pain of left knee Start: 11-24-2024 End: 11-24-2024 ambulatory DINORA TORRES Not Available Start: 11-20-2024 End: 11-20-2024 ambulatory Shade Robison WOOD Facility:[facility] Start: 11-17-2024 End: 11-17-2024 Telephone encounter Kehinde Gonzalez 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: [facility] Comment on above: Injection Start: 10-26-2024 End: 10-26-2024 Bamboo flowsheet Kehinde Gonzalez 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: [facility] Start: 10-26-2024 End: 10-26-2024 Bamboo flowsheet Kehinde Gonzalez 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: [facility] Start: 10-26-2024 End: 10-26-2024 ambulatory KEHINDE GONZALEZ Not Available Start: 10-26-2024 End: 10-26-2024 Office outpatient visit 25 minutes Kehinde Gonzalez NP Work Phone: [facility] Comment on above: Primary osteoarthrit is of left knee (Primary Dx); Acute pain of left knee Start: 10-08-2024 End: 10-08-2024 [facility] Start: 07-06-2024 End: 07-06-2024 ambulatory JACOB MCKEON Facility:[facility] Start: 07-06-2024 End: 07-06-2024 Office outpatient new 45 minutes Justus Braxton MD Work Phone: Gastroenterology Comment on above: Subepithelial lesion of esophagus (Primary Dx); Hiatal hernia; Gastroesophageal reflux disease, unspecified whether esophagitis present; Diverticulosis Start: 05-28-2024 End: 05-28-2024 ambulatory JACOB MCKEON Facility:[facility] Start: 05-28-2024 End: 05-28-2024 Patient encounter procedure Olivia Woodard [facility] Start: 05-27-2024 End: 05-29-2024 Telephone encounter Justus Braxton MD Work Phone: Gastroenterology Comment on above: Appointment Start: 05-21-2024 End: 05-21-2024 ambulatory Alissa Mooney Facility:[facility] Start: 05-21-2024 End: 05-21-2024 Patient encounter procedure Alissa Mooney [facility] Start: 05-01-2024 End: 05-01-2024 ambulatory Alissa Mooney Facility:[facility] Start: 05-01-2024 End: 05-01-2024 Patient encounter procedure Alissa Mooney [facility] Start: 04-27-2024 End: 04-27-2024 ambulatory ALISSA [facility] Start: 04-24-2024 ambulatory Alissa Mooney Facilit y:ALYSIA Lomeli Start: 04-16-2024 End: 04-16-2024 ambulatory Alissa Mooney Facility:[facility] Start: 04-16-2024 End: 04-16-2024 Patient encounter procedure Alissa Mooney [facility] Start: 03-24-2024 End: 03-24-2024 ambulatory [facility] Work Phone: Start: 03-24-2024 End: 03-24-2024 Patient encounter procedure [facility] Phys[facility] Work Phone: Start: 08-19-2023 End: 08-19-2023 ambulatory Jacob Mckeon Other [employer] Other Start: 08-19-2023 Telephone encounter Jacob Mckeon [facility] Start: 12-25-2022 End: 12-26-2022 ambulatory MARCELINO STERN Facility: Start: 11-22-2022 End: 11-23-[address] JACOB MCKEON Facility:[facility] Start: 11-20-2022 End: 11-21-2022 ambulatory MARCELINO STERN Facility:[facility] Start: 11-12-2022 End: 11-13-2022 ambulatory MARCELINO STERN Facility:[facility] Start: 10-09-2022 End: 10-10-2022 ambulatory CINDY PIZARRO Facility:[facility] Start: 08-24-2022 End: 08-25-[address] CHALO CHEEMA Facility:[facility] Start: 08-09-2022 End: 08-09-2022 ambulatory Jacob Mckeon Other [employer] Other Start: 08-09-2022 Office outpatient vi sit 15 minutes Jacob Mckeon [facility] Start: 07-31-2022 End: 08-15-2022 ambulatory ALISSA GALINDO Facility:[facility] Start: 07-27-2022 End: 07-27-2022 ambulatory Jacob Mckeon Other [employer] Other Start: 07-27-2022 Telephone encounter Jacob Mckeon [facility] Start: 07-25-2022 End: 07-25-2022 ambulatory Mary Ontiveros Other [employer] Other Start: 07-25-2022 Office outpatient vi sit 25 minutes Mary Ontiveros [facility] Start: 06-25-2022 End: 06-26-2022 ambulatory CINDY PIZARRO Facility:[facility] Start: 06-01-2022 End: 06-02-[address] TRINIDAD CHRISTINA Facility:[facility] Start: 05-02-2022 End: 05-03-2022 ambulatory CINDY PIZARRO Facility:[facility] Start: 03-06-2022 Adult health examination Jacob Mckeon Other [employer] Other Start: 02-28-2022 End: 02-28-2022 ambulatory Cass Juárez Other [employer] Other Start: 02-28-2022 Office outpatient ne w 20 minutes Cass Marquita [facility] Start: 02-26-2022 End: 07-31-2022 ambulatory ALISSA GALINDO Facility: Start: 01-01-2022 End: 01-07-2022 Evaluation and management of inpatient JACOB MCKEON Facility:[facility] Start: 01-01-2022 End: 01-02-2022 Evaluation and management of inpatient JACOB MCKEON Facility:[facility] Start: 12-30-2021 End: 01-16-2022 ambulatory JACOB MCKEON Facility:[facility] Start: 12-18-2021 End: 12-19-2021 ambulatory JACOB MCKEON Facility:[facility] Procedures Date Procedure Procedure Detail Performing Clinician Start: 10-26-2024 Arthrocentesis aspir&/inj major jt/bursa w/o 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 Gonzalez 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: Start: 10-26-2024 Radiologic examination knee 1/2 views Kehinde Gonzalez NP Work Phone: Start: 05-01-2024 Colonoscopy Alissa Mooney Start: 05-01-2024 Esophagogastroduodenoscopy Alissa burrows Start: 05-23-2022 History of coronary artery bypass grafting H/O four vessel coronary artery bypass graft Kehinde Gonzalez NP Work Phone: Start: 01-02-2022 Antibody screen JACOB MCKEON Comment on above: Performed By: #### [id number] ####[address] Start: 05-29-2016 General examination of patient Jacob walls Other Start: 06-08-2015 Screening for malignant neoplasm of prostate Jacob Mckeon Other Colonoscopy Mohamad Mouchli Open heart surgery Olivia dahl Plan of Treatment Date Care Activity Detail Author Start: 2029 RSV Vaccine (1 - 1-dose 75+ series) RSV Vaccine (1 - 1-dose 75+ series) [facility] Start: 05-25-2025 End: 05-25-2025 Patient encounter procedure 05/25/2025 8:00 AM EDT Office Visit [facility] [address] [facility] [place] [id number] Jr. Dniora Snyder, DO [address] [place] [address] [facility] Start: 11-24-2024 End: 11-24-2024 [facility] Comment on above: Arrived Start: 07-06-2024 End: 07-06-2024 Patient encounter procedure 07/06/2024 3:30 PM EST Office Visit Gastroenterology [id number] [place] [address] [place] [address] [place], [place] [id number] Discuss EGD/EUS radial and linear with FNB, per encounter Gastroenterology Comment on above: Discuss EGD/EUS radial and linear with F NB, per encounter Start: 03-29-2024 Covid-19 Vaccine ( season) Covid-19 Vaccine ( season) [facility] Start: 03-29-2024 Influenza vaccination Influenza Vaccine (#1) [facility] Start: 07-29-2023 Advance Directive Discussion Advance Directive Discussion [facility] Start: 2019 Pneumococcal Vaccine: 65+ (1 of 1 - PCV) Pneumococcal Vaccine: 65+ (1 of 1 - PCV) [facility] Start: 2004 Shingrix Vaccine (1 of 2) Shingrix Vaccine (1 of 2) [facility] Start: 1999 Diabetes Screening Diabetes Screening [facility] Start: 1999 Screening for malignant neoplasm of colon [facility] Start: 1989 Lipid panel Lipid Screening [facility] Start: 1973 Urine microalbumin profile DTaP,Tdap,Td Vaccine (1 - Tdap) [facility] Start: 1972 Annual PCP Team Chronic Disease Visit Annual PCP Team Chronic Disease Visit [facility] Start: 1972 Anxiety Screening Anxiety Screening [facility] Start: 1972 Depression Screening Depression Screening [facility] Start: 1972 Hepatitis B surface antibody level LDL Cholesterol [facility] Start: 1972 Hepatitis C screening Hepatitis C Screening [facility] Start: 1954 Abdominal aortic aneurysm screening Abdominal Aortic Aneurysm Screening [facility] End: 07-06-2025 EGD - THERAPEUTIC, EUS, OR TUBE INTERVENTIONS EGD - THERAPEUTIC, EUS, OR TUBE INTERVENTIONS Endoscopy Routine Subepithelial lesion of esophagus 1 Occurrences starting 07/06/2024 until 07/06/2025 [facility] Work Phone: Comment on above: 1 Occurrences starting 07/06/2024 until 07/06/2025 Immunizations Immunization Date Immunization Notes Care Provider Fa cility 03-30-2025 influenza, high dose seasonal, preservative-free Jacob Mckeon MD Work Phone: 06-05-2022 influenza (HD-IIV4) vaccine, age 65+ yr, high dose, quadrivalent, PF (FLUZONE HIGH-DOSE) Justus Braxton MD Work Phone: [facility] 06-05-2022 influenza virus vaccine, split virus (incl. purified surface antigen) Jacob Mckeon Other [employer] Other 06-05-2022 influenza virus vaccine, unspecified formulation 06-05-2022 Prevnar 20 Jacob Mckeon Other 05-02-2018 influenza virus vaccine, split virus (incl. purified surface antigen) Jacob Mckeon Other [employer] Other 05-02-2018 influenza virus vaccine, unspecified formulation 05-02-2018 influenza, injectabl e, quadrivalent, preservative free Justus Braxton MD Work Phone: [facility] 05-15-2017 influenza virus vaccine, unspecified formulation Alissa Mooney [facility] 05-15-2017 influenza, seasonal, injectable, preservative free Justus Braxton MD Work Phone: [facility] 05-15-2017 tetanus and diphther ia toxoids, adsorbed, preservative free, for adult use (5 Lf of tetanus toxoid and 2 Lf of diphtheria toxoid) Jacob Mckeon Other 05-30-2016 zoster vaccine, live Jacob Mckeon Other 05-04-2016 influenza virus vaccine, unspecified formulation Alissa Mooney [facility] 05-04-2016 influenza, seasonal, injectable, preservative free Justus Braxton MD Work Phone: [facility] 05-04-2016 tetanus and diphther ia toxoids, adsorbed, preservative free, for adult use (5 Lf of tetanus toxoid and 2 Lf of diphtheria toxoid) Jacob Mckeon Other Payers Date Payer Category Payer Private Health Insurance [employer] [id number] 2021 Unknown MMO MMO MEDICARE SUPPLEMENT [id number] 2021-Present [phone] [address] [place] [address] Indemnity [id number] 2019 Medicare [id number] 1959 Medicare [id number] 1959 Self-pay 1959 Unknown [id number] 1959 Unknown [id number] 1954 Unknown [id number] 2.16.840.1.586206.3.579.2.6 47 1954 Unknown [id number] 2.16.840.1.913270.3.579.2.6 47 1954 Unknown [id number] 2.16.840.1.632893.3.579.2.6 47 1954 Unknown [id number] 2.16.840.1.799008.3.579.2.6 47 1954 Unknown [id number] 2.16.840.1.085786.3.579.2.5 93 1954 Unknown [id number] 2.16.840.1.919395.3.579.2.5 93 1954 Unknown [id number] 2.16.840.1.047953.3.579.2.5 93 1954 Unknown [id number] 2.16.840.1.843806.3.579.2.5 93 1954 Unknown [id number] 2.16.840.1.457511.3.579.2.5 93 1954 Unknown [id number] 2.16.840.1.578001.3.579.2.5 93 1954 Unknown [id number] 2.16.840.1.243532.3.579.2.5 93 1954 Unknown [id number] 2.16.840.1.814938.3.579.2.5 93 1954 Unknown [id number] 2.16.840.1.081553.3.579.2.5 93 1954 Unknown [id number] 2.16.840.1.113939.3.579.2.5 93 1954 Unknown [id number] 2.16.840.1.287632.3.579.2.5 93 1954 Unknown [id number] 2.16.840.1.452333.3.579.2.7 27 1954 Unknown [id number] 2.16.840.1.963373.3.579.2.7 27 1954 Unknown [id number] 2.16.840.1.003097.3.579.2.7 27 1954 Unknown [id number] 2.16.840.1.853158.3.579.2.7 27 1954 Unknown [id number] 2.16.840.1.531778.3.579.2.1 259 1954 Unknown [id number] 2.16.840.1.377460.3.579.2.1 259 1954 Unknown [id number] 2.16.840.1.914635.3.579.2.1 259 1954 Unknown [id number] 2.16.840.1.352394.3.579.2.7 27 1954 Unknown [id number] 2.16.840.1.129733.3.579.2.7 27 1954 Unknown [id number] 2.16.840.1.249378.3.579.2.7 27 1954 Unknown [id number] 2.16.840.1.903751.3.579.2.7 27 Medicare [id number] 2.16.840.1.683931.19 Unknown [id number] 2.16.840.1.761643.3.579.2.5 93 Social History Date Type Detail Facility Start: 07-06-2024 End: 10-26-2024 Sex Assigned At [facility] Start: 1955 Sex Assigned At Male [facility] Start: 04-16-2024 End: 05-28-2024 Tobacco smoking status Never smoked tobacco (finding) [facility] Tobacco smoking status Never [facility] Start: 06-12-2023 End: 07-06-2024 Tobacco smoking status Ex-smoker (finding) [facility] Tobacco smoking stat [facility] Tobacco smoking consumption unknown [facility] Start: 1955 Sex assigned at Not on file [facility] End: 07-29-1989 History of tobacco use Current smoker [facility] End: 07-29-1989 History of tobacco use Cigarette Smoker [facility] Start: 06-12-2023 End: 07-06-2024 Tobacco use and exposure Smokeless tobacco non-user [facility] Start: 07-06-2024 End: 10-26-2024 Alcoholic beverage intake Current drinker of alcohol (finding) [facility] Start: 07-06-2024 End: 10-26-2024 History of Social function [facility] Start: 07-06-2024 [facility] Start: 02-18-2023 Tobacco Comment Last smoked: 1-5 yea rs [facility] Start: 02-18-2023 Alcohol Comment Coffee 2-3 cups per day [facility] Sex Male (finding) [facility] Procedure Code Equipment Code Equipment Origin al Text Equipment Identifier Dates Lancets - Start: 08-19-2023 Blood Sugar Diagnostic (Accu-Chek Guide Test Strips) strip Start: 06-16-2024 Blood Sugar Diagnostic (Accu-Chek Guide Test Strips) strip Start: 06-11-2024 End: 06-16-2024 Blood Sugar Diagnostic (Accu-Chek Guide Test Strips) strip Start: 06-16-2024 Blood Sugar Diagnostic (Accu-Chek Guide Test Strips) strip Start: 06-11-2024 End: 06-16-2024 Functional Status Date Assessment Result Facility 05-28-2024 Functional Status N/A [facility] 05-01-2024 Functional Status N/A [facility] 04-16-2024 Functional Status N/A [facility] Clinical Notes 01-24-2022 to 03-30-2025 Note Date & Type Note Facility 03-30-2025 Evaluation note Diagnosis Onset Date Resolution Type 2 diabetes mellitus with hyperglycemia acute March 3:07pm [facility] Work Phone: 1(316) 865-683007-03-2025 NoteCardiovascular Medicine [facility] SUBJECTIVE No chief complaint on file. Oswald Ochoa is a 69 y.o. male here for a 3 month follow-up. Labs completed this am. Patient states he does have some WHITNEY. At this time patient has no cardiac complaints. He has know HTN, CAD s/p CABG [...] use: Yes Comment: occasional No Known Allergies Review of Systems Cardiovascular: Positive for dyspnea on exertion. OBJECTIVE Visit Vitals Smoking Status Former BP 154/72 (BP Location: Right arm, Patient Position: Sitting) Pulse 59 Ht 1.753 m (5' 9 ) Wt 110 kg (242 lb) SpO2 95% BMI 35.74 kg/m??? Medications: Current Outpatient Medications: Accu-Chek Guide test strips strip, USE TO TEST BLOOD SUGAR EVERY DAY, Disp: , Rfl: Accu-Chek Softclix Lancets [facility], USE 1 LANCET DAILY TO CHECK BLOOD [...] at bedtime., Disp: 90 tablet, Rfl: 3 carvedilol (Coreg) 6.25 mg tablet, Take 1 tablet (6.25 mg) by mouth with breakfast and with evening meal., Disp: 60 tablet, Rfl: 11 clopidogrel (Plavix) 75 mg tablet, Take 1 tablet (75 mg) by mouth in the morning., Disp: 90 tablet, Rfl: 3 ezetimibe (Zetia) 10 mg tablet, Take 1 tablet (10 mg) by mouth in the morning. (Patient not taking: Reported on 04/27/2024), Disp: 90 tablet, Rfl: 3 furosemide (Lasix) 20 mg tablet, TAKE 1 TABLET BY MOUTH EVERY DAY IN THE MORNING, Disp: 90 tablet, Rfl: 3 glipiZIDE (Glucotrol) 5 mg tablet, Take 5 mg by mouth in the morning., Disp: , Rfl: latanoprost (Xalatan) 0.005 % ophthalmic solution, Administer 1 drop into both eyes at bedtime., Disp: , Rfl: lisinopril 40 mg tablet, TAKE 1 TABLET BY MOUTH EVERY DAY IN THE MORNING, Disp: 90 tablet, Rfl: 3 vobpzclbaetk-zjvp-yeufddyi-folic acid (Multivitamin 50 Plus) tablet, Take 1 [...] Normal rate and regular rhythm. Pulses: Normal (more content not included)...[facility] 11-24-2024 History of Present illness Narrative* Jr. Dinora Snyder, - 11/24/2024 8:00 AM EDT Images from the original note were not included. HISTORY OF PRESENT ILLNESS: EST PT Oswald Ochoa is an 69 y.o. @ male. (EST W/KEHINDE) RECHECK LT KNEE PAIN - S/P [...] for requiring urgent evaluation. documented in this encounterMosaic [facility] St. [id number] NotePatient Education Nephrology ESWL for Kidney Stones Extracorporeal [...] including vitamins, herbs, eye drops, creams, and xnor-ziu-lprfuqa medicines. ??? Any problems you or family [...] care provider tells you to. ??? Taking fjdw-grm-jcnhskt medicines, vitamins, herbs, and supplements. Tests You [...] the ureter. The stent will be removed roxy later time by your health care provider. The procedure may vary among health care providers and hospitals. What happens after the procedure? Your blood pressure, heart rate, breathing rate, and blood oxygen level will be monitored untilyou leave the hospital or clinic. ??? You [...] given to you b (more content not included)...[facility]04-22-2025 Telephone encounter Note* Telephone Encounter - Charmaine Burns - 11/17/2024 1:31 PM EDT Patient's called and left . She stated that the cortisone injection that he had 1 month ago has not helped at all. Please advise [phone]. [facility] [id number] Miscellaneous Notes* Telephone Encounter - Charmaine Burns - 11/17/2024 1:31 PM EDT Patient's called and left . She stated that the cortisone injection that he had 1 month ago has not helped at all. Please advise [phone]. documented in this encounterMosaic Life Care at St. [id number] History of Present illness Narrative* Kehinde Gonzalez NP - 10/26/2024 10:45 AM EDTAssociated Order(s): L Inj/Asp: L knee Post-Procedure Diagnose(s): Primary osteoarthritis of left knee Images from the original note were not included. HISTORY OF PRESENT ILLNESS: KATHY Ochoa is an 69 y.o. @ male. 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 Neurovasc intact s/p injection. Post injectioncare instructions discussed. He will call if symptoms fail to improve. I educated patient we can doinjection every 3-4 months as needed. Questions answered in laymen terms at the bedside. The diagnosis, home exercise plan and any ongoing restrictions/ recommendations reviewed. If unable to be reached in office, I recommend evaluation at nearest Emergency Room if any symptoms worsened or new symptoms develop for requiring urgent evaluation. Kehinde Gonzalez CANVAS WORKER-MARKETING COMMUNICATION MANAGER documented in this encounterMosaic Life Care at St. [id number] NoteCardiovascular Medicine [facility] SUBJECTIVE Chief Complaint Patient presents with Coronary [...] DAY, Disp: , Rfl: Accu-Chek Softclix Lancets mis, USE 1 LANCET DAILY TO CHECK BLOOD [...] on 04/27/2024), Disp: 90 tablet, Rfl: 3 xeigoorqbgqf-wuqj-xovxclzt-folic acid (Multivitamin 50 Plus) tablet, Take 1 [...] pulses. Heart sounds: Norm (more content not included)...[facility]03-13-2025 NotePatient here for 6 month follow up. Patient [...] for chest pain. Musculoskeletal: Positive for joint pain.[facility] 07-06-2024 Instructions* Patient Instructions* Justus Braxton MD - 07/06/2024 3:59 PM EST It was nice meeting you Continue taking Prilosec on empty stomach 30-60 minutes before breakfast If you have heartburn symptoms in the evening then take Pepcid as needed Please hold your Plavix 7 days before your procedure Plan for endoscopic ultrasound to evaluate subepithelial lesion in the esophagus documented [facility] History and physical note * Justus Braxton MD - 07/06/2024 3:30 PM EST Patient presents with: Clinician To Clinician Consult HPI: Oswald Ochoa, 69 year old male with past medical history significant for obesity, hypertension,hyperlipidemia, coronary artery disease status post cardiac bypass [...] GE junction but no evidence of esophageal m ass. Patient denies any family history of gastrointestinal [...] OTHER ETIOLOGIES, INCLUDING MALIGNANCY CANNOT ENTIRELY EXCLUDE MAGINGOF THE CHEST WITHOUT INTRAVENOUS CONTRAST MEDIUM.HISTORY: Subendothelial [...] MORNING *DO NOT CRUSH OR CHEW* - Uqjjtgdikthbk-Uikqnaxn-Wvphgs (MULTIVITAMIN 50 PLUS) tab; Take 1 tablet [...] patient and at length. Risks include aspiration, in fection, bleeding, perforation or pancreatitis. Proceed with endoscopic ultrasound with FNB Hold Plavix for 5 to 7 days before the procedure Continue PPI daily indefinitely Justus Braxton MD Gastroenterology, Hepatology and Nutrition [facility]12-09-2024 History and physical note* Justus Braxton MD - 07/06/2024 3:30 PM EST Patient presents with: Clinician To Clinician Consult HPI: Oswald Ochoa, 69 year old male with past medical history significant for obesity, hypertension,hyperlipidemia, coronary artery disease status post cardiac bypass [...] GE junction but no evidence of esophageal m ass. Patient denies any family history of gastrointestinal [...] OTHER ETIOLOGIES, INCLUDING MALIGNANCY CANNOT ENTIRELY EXCLUDE MAGINGOF THE CHEST WITHOUT INTRAVENOUS CONTRAST MEDIUM.HISTORY: Subendothelial [...] MORNING *DO NOT CRUSH OR CHEW* - Wlocowlojgwzl-Clrpuluw-Obavfv (MULTIVITAMIN 50 PLUS) tab; Take 1 tablet [...] patient and at length. Risks include aspiration, in fection, bleeding, perforation or pancreatitis. Proceed with endoscopic ultrasound with FNB Hold Plavix for 5 to 7 days before the procedure Continue PPI daily indefinitely Justus Braxton MD Gastroenterology, Hepatology and Nutrition documented in this encounterDiley [facility] Center11-01-2024 Telephone encounter Note * Telephone Encounter - Angel Rodriguez - 05/29/2024 2:37 PM EDT Spoke to patient and scheduled OV with Dr. Braxton on 07/06/24 at [facility] [place] 3[place]30 pm per message below. [facility]11-01-2024 Miscellaneous Notes* Telephone Encounter - Angel Rodriguez - 05/29/2024 2:37 PM EDT Spoke to patient and scheduled OV with Dr. Braxton on 07/06/24 at [facility] [place] 3:30 pm per message below. * Telephone Encounter - Marisa Hu RN - 05/29/2024 1:37 PM EDT I agree may not be a bad idea to bring him in for an OV unless patient would prefer to proceed withthe procedure. He will need to stop plavix for 5-7 days. He will need EGD/EUS radial and linear with FNB. Please schedule pt for an office visit with Dr. Braxton for Jul 06 3:30 if pt is agreeable. Thank you Marisa Hu RN * Telephone Encounter - Marisa Hu RN - 05/27/2024 4:07 PM EDT Received referral per Dr. Mooney for subepithelial [...] you. Marisa Hu RN [facility] Telephone encounter Note * Telephone Encounter - Marisa Hu RN - 05/29/2024 1:37 PM EDT I agree may not be a bad idea to bring him in for an OV unless patient would prefer to proceed withthe procedure. He will need to stop plavix for 5-7 days. He will need EGD/EUS radial and linear with FNB. Please schedule pt for an office visit with Dr. Braxton for Jul 06 3:30 if pt is agreeable. Thank you Marisa Hu RN [facility]10-31-2024 Hospital Discharge instructions Patient Education 05/28/2024 11:21:41 Kidney Stones, Dxki-je-Ceov Kidney Stones Kidney stones are rock-like masses [...] Follow these instructions at home: Medicines Take ggjn-jrq-joqymnu and prescription medicines only as told by [...] provider. Document Revised: 03/08/2023 Document Reviewed: 03/08/2023 Dr. TATTOFF Patient Education 2023 [employer]. Follow Up Care 05/08/2024 09:15:41 With:ISRAEL RUFFIN, Shade Robison, URL Address: [address] [place] [address] [place] [address]- When:6 months Comments:KUB, ANAMARIA and PSA [facility] 10-31-2024 NoteUrology Office/Clinic Note Chief Complaint referral from Linda- BPH w/o LUTOBIN HPI Staff Referral by Dr. 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 Jacob Mckeon for BPH without LUTS. Pt here with his today. 04/24/24 - BUN 9, Cr 1.06, eGFR >60 1. BPH without urinary obstruction (N40.0: Benign prostatic hyperplasia without lower urinary tractsymptoms) 04/17/24 CT abd/pelvis w/ con - enlarged [...] E&M of New Patient High 60-74 Min 52155 Influenza immunization status assessed 1030F Medication list [...] Urnls Dip Stick Auto w/o Microscopy POC 64856 2. Kidney stone, (N20.0: Calculus of kidney)Kidney stone 04/17/24 CT abd/pelvis w/ con - nonobstructing L nephrolithiasis (no sizing noted on CT report, uponpersonal review 8x6mm) Discussed CT report with patient. [...] stone prevention diet/fluids with patient. -Will call [facility] for addendum to CT report from 04/17/24 for stone sizing -KUB/ANAMARIA at [facility] in 6 months (reminder in place) -Increase fluids, add lemon/ohogamiut to diet -Low animal protein, low salt diet -Consider metabolic workup in the future -Call our office or go to ER for severe flank pain, N/V, fever/chills, inability to urinate -F/U [address] Wood to review KUB/ANAMARIA Ordered: E&M of New Patient High 60-74 Min 79747 3. 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 (more content not included)...[facility]:Result Comment: Electronically Signed By: Olivia Dumont\.br\Date and Time Signed: 05/28/24 11:33 [id number] Note Patient Education Urology Kidney Stones Kidney [...] these instructions at home: Medicines ??? Take isul-kjj-jpklqju and prescription medicines only as told by [...] provider. Document Revised: 03/08/2023 Document Reviewed: 03/08/2023 Dr. TATTOFF Patient Education ? 2023 [employer].[facility] 05-27-2024 Telephone encounter Note* Telephone Encounter - Marisa Hu RN - 05/27/2024 4:07 PM EDT Received referral per Dr. Mooney for subepithelial [...] on Plavix Thank you. Marisa Hu RN [facility]10-04-2024 NoteProgress Note-Physician Patient: OSWALD OCHOA Age: 69 years Sex: Male : 1955 Associated Diagnoses: None Author: Randell Oneal MD Postoperative Information Postoperative disposition: Postoperative disposition: To PACU. Optimetrix number: Optimetrix number [id number]. Anesthetic utilized: General. Health Status Allergies: Allergic [...] Discharge when meets criteria ( To home ).[facility] HospitalComment on above:Result Comment: Electronically Signed By: Randell Oneal MD\.br\Date and Time Signed: 05/01/24 16:04 EDT 05-01-2024 Evaluation + Plan noteExtracted from: Title:ANES Post-operative Note---General Author: Randell Oneal MD. Date:05/01/24 Plan Transfer/Discharge: Transfer/Discharge Discharge when meets criteria ( To home ). Extracted from: Title:ANES Pre-operative Note 2022 Author:Randell Kidd. Date:05/01/24 Plan [place] Society of Anesthesiologists (ASA) physical status classification: Class III. Anesthetic Preoperative Plan: Anesthesia General. [facility] 10-04-2024 Hospital Discharge instructions Patient Education 05/01/2024 [...] unsweetened, w/added ascorbic acid 1 cup 0.5 [place] 1 cup 0.7 Vegetables Cooked Green beans 1 cup 4.0 Carrots 1/2 cup sliced 2.3 Peas 1 cup 8.8 Potato (baked, with skin) 1 medium potato 3.8 Raw [place] (with peel) 1 cucumber 1.5 Lettuce 1 [...] 8.7 Peanuts 1/2 cup 7.9 Chart from [facility] 2013. SEEK IMMEDIATE MEDICAL CARE IF: You [...] Nutrient Database for Standard Reference. Available at http://www.[place].usda.gov/fnic/foodcomp/search/. Information adapted from: ExitCare Patient Information 2009 [employer]. [employer] 2012 http://www.[employer]/contents/fyaznieopbsf-rrjetne-dprtet-the-basics 05/01/2024 10:17:07 Colonoscopy, Care After Surgery [place] (CUSTOM) Colonoscopy Care After Surgery Please read [...] Care 04/16/2024 11:17:17 With:Vinicio RUFFIN, PRIYANKA Kuhn, [facility] Address: [address], [address] [place] [phone] When: Unknown Comments:Office will call Date and Time of Follow-up Appt. [facility] 10-04-2024 NotePatient Education - Text Diverticulosis Many [...] unsweetened, w/added ascorbic acid 1 cup 0.5 [place] 1 cup 0.7 Vegetables Cooked Green beans 1 cup 4.0 Carrots 1/2 cup sliced 2.3 Peas 1 cup 8.8 Potato (baked, with skin) 1 medium potato 3.8 Raw [place] (with peel) 1 cucumber 1.5 Lettuce 1 [...] 8.7 Peanuts 1/2 cup 7.9 Chart from [facility] 2013. SEEK IMMEDIATE MEDICAL CARE IF: You [...] Reference. Available at http://www.nal.usda.gov/fnic/foodcomp/search/. Information adapted from: [facility]? Patient Information ?2009 [employer]. [employer] 2012 http://www.[employer]/contents/gdgcggprdpcf-bhqhrbf-hhyvrh-the-basics Colonoscopy Care After Surgery Please read the [...] your doctor. Begin wit (more content not included)...[facility]10-[facility] NoteProgress Note-Physician Patient: OSWALD OCHOA Age: 69 years Sex: Male : 1955 Associated Diagnoses: None Author: Jm RUFFIN, Randell Bernardo Preoperative Information Anesthesia Preop Info: Time patient [...] mg, Oral, q72hr, Refills(s) 0, Erectile dysfunction [facility]: Oral, Daily, Refill(s) 0, Prophylaxis Lasix 20 [...] Oral, Daily Cialis 5 mg, Oral, q72hr [facility] , Oral, Daily glipiZIDE 10 mg ER [...] All Problems Chronic GERD / SNOMED CT 067162792 / Confirmed Hiatal hernia / SNOMED CT 555870160 / Confirmed Obesity due to excess calories / SNOMED CT 4256940609 / Confirmed, Active Problems (3) Chronic GERD Hiatal hernia Obesity due to excess calories , HTN, HLD, NIDDM, CAD s/p CABG x 5 2021 Histories Past Medical History: No active or resolved past medical history items have been selected or recorded. Family History: Heart disease Father Procedure history: Colonoscopy ([id number]). Social History Social & Psychosocial Habits Tobacco [...] review: No qualifying data available . Plan [place] Society of Anesthesiologists (ASA) physical status classification: Class III. Anesthetic Preoperative Plan: Anesthesia General.[facility] Comment on above:Result Comment: Electronically Signed By: Jm RUFFIN, Randell Bernardo\.br\Date and Time Signed: 05/01/24 09:55 [id number] NoteCardiovascular Medicine [facility] SUBJECTIVE Oswald Ochoa is a 69 y.o. [...] Diagnosis Date Coronary artery disease Diabetes mellitus (CMS/[facility]) Hyperlipidemia Hypertension No family history [...] OR CHEW*, Disp: 90 tablet, Rfl: 3 ibozqxspqtpn-yqkx-pdgtgsdc-folic acid (Multivitamin 50 Plus) tablet, Take 1 [...] normally he is wit (more content not included)...[facility]01-22-2024 Evaluation note* Encounter Date Diagnosis Assessment Notes Treatment Notes Treatment Clinical Notes Jul, Type 2 diabetes mellitus with hyperglycemia, unspecified whether mcc insulin use (ICD-10 - E11.65) [employer] Other 01-12-2023 Evaluation note* Encounter Date Diagnosis Assessment Notes Treatment Notes Treatment Clinical Notes Jul, Colitis (ICD-10 - K52.9) Jul, Coronary artery disease, unspecified vessel or lesion type, unspecified whether angina present, unspecified whether pala or transplanted heart (ICD-10 - I25.10) New medicine list and discussed symptoms with patient and 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 Jul, Type 2 diabetes mellitus with hyperglycemia, unspecified whether terminal block assembler insulin use (ICD-10 - E11.65) Consider medication change after he resolves from present symptoms. [facility] Other 12-28-2022 Evaluation note* Encounter Date Diagnosis [...] condition Jun, Sore throat (ICD-10 - J02.9) [facility] Other 08-03-2022 Evaluation note* Encounter Date Diagnosis [...] (Suspected or Confirmed ) material was printed [employer] Other 06-29-2022 NoteMR#: [id number] [facility] Pt. Name: Oswald Ochoa Admitted: [...] COURSE: 66-year-old male who presented to an [facility] after having an episode of postprandial left-sided chest pain that lasted for about 2 hours. Chest pain was associated with shortness of breath and tingling of both upper extremities and generalized weakness. 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 Electronically Signed by: Jose R Guzman MD 01/24/2022 07:07 P Jose R Guzman MD I personally saw this patient on the day of the encounter, performed the south portion(s) of the service and participated in the management and confirm the resident's documentation. Please note there may be an additional personal documentation from me. Date Dict: 01/23/2022/12:20 P/Francisco Henley, MARKETING COMMUNICATION MANAGER Date Trans: 01/23/2022 10:56 P/mmo [id number] Medical CenterEvaluation + Plan note Future Appointments Appointment Date:05/01/2024 09:15:00 AM Scheduled Provider: Location:[facility] Appointment Type:Surgery [facility] Evaluation + Plan note Future Appointments Appointment Date:05/28/2024 10:00:00 AM Scheduled Provider:Olivia Dumont Location:[facility] Appointment Type:URO New Patient [facility] Evaluation + Plan note Future Appointments Appointment Date:11/20/2024 09:45:00 AM Scheduled Provider:Shade WOOD MD Location:[facility] Appointment Type:URO Office Visit Diagnostic Tests Pending * PSA Total 05/28/24 [facility] evaluation noteNo InformationNocarondelet health [employer] Other Evaluation noteNo assessment information available [facility] Work Phone: Evaluation note* Diagnosis Subepithelial lesion of esophagus- Primary Hiatal hernia Diaphragmatic hernia without mention of obstruction or gangrene Gastroesophageal reflux disease, unspecified whether esophagitis present Diverticulosis Diverticulosis of colon (without mention of hemorrhage) documented in this encounter [facility] Diagnosis Primary osteoarthritis of left knee- Primary Acute pain of left knee documented in this encounter [facility] HealthcareEvaluation note* Diagnosis Primary osteoarthritis of left knee- Primary Acute pain of left knee documented in this encounter [facility] HealthcareHistory general Narrative - Reported* Type Description Date Medical History Hypertension Surgical History Open Heart 2021 Hospitalization History see above [employer] [facility] [employer] Other History general Narrative - Reported* Type Description Date Medical History coronary artery disease Medical History diverticulitis Medical History hyperlipidemia Medical History type 2 diabetes Medical History Hypertension Surgical History Open Heart 2021 Surgical History kidney stone Surgical History hemicolectomy Surgical History open cholecystectomy Surgical History right inguinal hernia Surgical History left ventral hernia Hospitalization History see above [employer] Other Hospital course Narrative No data available for this section [facility] Hospital Discharge instructions No data available for this section [facility] Progress note No data available for this section [facility] Reason for referral (narrative)* Outpatient Procedure (Routine) - New Request Specialty Diagnoses / Procedures Referred By Aviva t Referred To Contact [facility] Diagnoses Subepithelial lesion of esophagus Procedures EGD - THERAPEUTIC, EUS, OR TUBE INTERVENTIONS EGD INTRMURAL US NEEDLE ASPIRATE/[place] [address] [place] [address] [facility] [address] [place] [address] Referral ID Status Reason Start Date Expiration Date Visits Requested Visits Authorized [id number] New Request Auto-Generat ed Referral 07/06/2024 07/06/2025 1 1 [facility] for referral (narrative)No reason for referral information availableNorwalk [facility] Hospital Work Phone: Summary Purpose Family History Relationship Condition Age at Onset Recorded Date/T santino father Heart disease Unknown Unknown mother Unknown Diabetes mellitus Unknown Advance Directives Advance Directive Response Recorded Date/ Time Advance Directives No October 02 12:00pm Chief Complaint and Reason for Visit Chief Complaint stomach issues Chief Complaint Admit Date bp prescription question March 30, 2025 3:07pm Chief Complaint Admit Date bp prescription question March 30, 2025 3:07pm Follow up [employer] April 14, 2025 11:12am Reason for Visit Admit Date Type 2 diabetes mellitus with hyperglyce ayesha March 30, 2025 3:07pm Additional Source Comments (unrecognized sect ion and content) No Status Records FoundNo Status Records FoundNo Status Records FoundNo Status Records FoundNo Status Records FoundNo Status Records FoundNo Status Records FoundNo Status Records FoundNo Status Records FoundNo Status Records Found INFORMATION SOURCE (unrecogn ized section and content) DATE CREATED AUTHOR 01/25/2022 [facility] DATE CREATED AUTHOR AUTHOR'S ORGANIZ ATION 01/04/2023 [facility] DATE CREATED AUTHOR AUTHOR'S ORGANIZ ATION 05/09/2024 [facility] DATE CREATED AUTHOR AUTHOR'S ORGANIZ ATION 05/11/2024 [facility] DATE CREATED AUTHOR AUTHOR'S ORGANIZ ATION 05/22/2024 [facility] DATE CREATED AUTHOR AUTHOR'S ORGANIZ ATION 07/09/2024 [facility] DATE CREATED AUTHOR AUTHOR'S ORGANIZ ATION 10/24/2024 [facility] DATE CREATED AUTHOR AUTHOR'S ORGANIZ ATION 11/25/2024 [facility] DATE CREATED AUTHOR AUTHOR'S ORGANIZ ATION 12/25/2024 [facility] DATE CREATED AUTHOR AUTHOR'S ORGANIZ ATION 01/30/2025 [facility] REASON FOR VISIT (unrecogniz ed section and content) Reason Comments Appointment Reason Comments Clinician To Clinician Consult Reason Comments Pain Reason Onset Date Comments Injection 11/17/2024 Reason Comments Pain Care Teams (unrecognized sec tion and content) Team Status: Active Member Role Status Dates Jacob Mckeon MD Primary Care Provider Active Team Status: Active Member Role Status Dates Jacob Mckeon MD Primary Care Provider Active Start: January 28, 2025 IMER Preciado Attending Provider Active Start: January 28, 2025 Team Status: Inactive Member Role Status Dates Jacob Mckeon MD Primary Care Provider Active Start: March 30, 2025 End: March 30, 2025 Jacob Mckeon MD Attending Provider Active St art: March 30, 2025 End: March 30, 2025 Team Status: Inactive Member Role Status Dates Jacob Mckeon MD Primary Care Provide r, Attending Provider Active Start: March 24, 2024 End: March 24, 2024 Seal Extrusion Operator Relationship Specialty Start Date End Date Jacob Mckeon MD [address] [place] [facility] [place] [place] [phone] PCP - General Family Medicine 05/29/24 Seal Extrusion Operator Relationship Specialty Start Date End Date Jacob Mckeon MD [address] [place] [facility] [place] [phone] PCP - General Family Medicine 05/29/24 Seal Extrusion Operator Relationship Specialty Start Date End Date Jacob Mckeon MD [address] [facility] [phone] PCP - General Family Medicine 01/15/23 Seal Extrusion Operator Relationship Specialty Start Date End Date Jacob Mckeon MD [address] [facility] [phone] PCP - General Family Medicine 01/15/23 Seal Extrusion Operator Relationship Specialty Start Date End Date Jacob Mckeon MD PCP - General Family Medicine 01/15/23 Seal Extrusion Operator Relationship Specialty Start Date End Date Jacob Mckeon MD [address] [place] [phone] PCP - General Family Medicine 01/15/23 Seal Extrusion Operator Relationship Specialty Start Date End Date Jacob Mckeon MD [address] [place] [phone] PCP - General Family Medicine 01/15/23 Team Status: Inactive Member Role Status Dates Jacob Mckeon MD Primary Care Provider Active Start: April 14, 2025 End: April 14, 2025 Jacob Mckeno MD Attending Provider Active St art: April 14, 2025 End: April 14, 2025 Goals (unrecognized section and content) Goals may be documented in a n alternate section Source Comments (unrecognize d section and content) In the event this informatio n is protected by the [facility] Confidentiality of Alcohol and Drug Abuse Patient Records regulations: The Federal rules restrict any use of the information to criminally investigate or prosecute any alcohol or drug abuse patient.[facility] CenterIn the event this information is protected by the Federal Confidentiality of Alcohol and Drug Abuse Patient Records regulations: The Federal rules restrict any use of the information to criminally investigate or prosecute any alcohol or drug abuse patient.[facility] FOR RECORDS PERTAINING TO PATIENTS [...] BE BASED ON THE PRIMARY CLINICAL RECORDS. [facility]. provides no warranty or guarantee of the accuracy or completeness of information in this document.
--- NOTE | 2025-05-15 17:23 | ECG_ITS ---
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 Measurements Intervals [place] Rate: 73 P: 63 ND: 158 QRS: -50 QRSD: 138 T: 11 QT: 362 QTc: 388 Interpretive Statements 1100 Sinus rhythm 2450 Right bundle branch block 2630 Left anterior fascicular block 4164 Twave abnormality, possible anterior ischemia 7300 Indeterminate axis 9150 abnormal ECG Compared to ECG 11/27/2024 11:40:30 Left anterior fascicular block now present Possible ischemia now present Indeterminate axis now present Electronically Signed On 05-16-2025 10:52:53 EDT by DINORA MALAVE M.D.
--- NOTE | 2025-05-15 17:23 | XR_ITS ---
[address] [address] Patient Name: CORNEL GIL MRN: [id number] date: 1955 Sex: M Assigned Patient Location: ER Current Patient Location: ER Accession/Order Number: [id number] Exam Date: 05/15/2025 17:40 Report Date: 05/15/2025 17:58 At the request of: JEREMIAH ORELLANA Procedure: XR chest 1V XR chest 1V 05/15/2025 5:45 PM SIGNS AND SYMPTOMS: Dizziness, nausea, diarrhea PROTOCOL: Frontal radiograph of the chest COMPARISON: 11/27/2024 FINDINGS: The trachea is midline. Atherosclerotic changes are noted in the thoracic aorta. Sternotomy wires overlie the mediastinum. The heart and mediastinal structures are within normal limits. The lung parenchyma is clear. The bony thorax is intact. XR/XR chest 1V IMPRESSION: No acute cardiopulmonary pathology. Impression dictated by: Oscar Ribeiro M.D. 05/15/2025 5:58 PM Dictation Location: [place] [address] Electronically authenticated by: [id number] Y Date: 05/15/2025 17:58
--- NOTE | 2025-05-15 17:29 | CT_ITS ---
The [address] [address] Patient Name: CORNEL GIL MRN: [id number] date: 1955 Sex: M Assigned Patient Location: ER Current Patient Location: ER Accession/Order Number: [id number] Exam Date: 05/15/2025 17:40 Report Date: 05/15/2025 18:00 At the request of: JEREMIAH ORELLANA Procedure: CT head/brain wo con CT head/brain wo con 05/15/2025 5:45 PM SIGNS AND SYMPTOMS: ^headache, dizziness, nausea TECHNIQUE:Multi-detector CT axial slices of the brain were obtained without IV contrast. CT was performed with one or more of the following dose reduction techniques: Automated exposure control, adjustment of the mA and/or kV according to patient size, or use of iterative reconstruction technique. COMPARISON: None. FINDINGS: There is no shift of the midline structures, acute intracranial bleeding, mass effects, or evidence of acute ischemia. Atherosclerotic changes are noted in the V4 segments of the vertebral arteries and intracranial segments of the internal carotid arteries. There is age-related cortical atrophy. The ventricular system is normal in size. The brainstem and the cerebellum are unremarkable. The visualized intraorbital contents, the visualized paranasal sinuses, and the infratemporal soft tissues show no acute abnormality. The osseous structures in the skull base and the calvarium show no abnormality. CT/CT head/brain wo con IMPRESSION: No acute intracranial pathology. Chronic age-related neurodegenerative changes are noted as above. Impression dictated by: Oscar Ribeiro M.D. 05/15/2025 6:00 PM Dictation Location: [place] [address] Electronically authenticated by: [id number] Y Date: 05/15/2025 18:00
--- NOTE | 2025-05-15 17:40 | ED.GENADUL1 ---
HPI HPI - General Adult General Chief complaint: Dizziness Stated complaint: DIZZINESS, NAUSEA Time Seen by Provider: 05/15/25 17:22 Source: patient and family Mode of arrival: walk-in Limitations: no limitations History of Present Illness HPI narrative: 70-year-old male presents here with a chief complaint of hypotension and dizziness. Patient states he was at a yazidism event became dizzy. When he got home after the yazidism event where he had had some food because he thought his blood sugar may have been elevated he tried to put his dogs on a leash and bent over and felt very dizzy. He said he had a minimal headache at that time. He states he felt as if he was going to pass out. Patient denies a history of blurry vision or double vision. She has no history of hypotension. He states the symptoms have subsided as he is here at the emergency room. His blood pressure is still low at 96/66 upon arrival. He has no nystagmus. He denies any dizziness but states he had nausea earlier. Patient denies a history of a stroke or vertigo in the past. Related Data Home Medications ?Medication ?Instructions ?Recorded ?Confirmed ascorbic acid (vitamin C) 1,000 mg 1 g PO DAILY 11/27/24 12/10/24 capsule aspirin 81 mg tablet,delayed 81 mg PO DAILY 11/27/24 12/10/24 release atorvastatin 80 mg tablet 80 mg PO DAILY 11/27/24 12/10/24 carvedilol 6.25 mg tablet 6.25 mg PO Q12H 11/27/24 12/10/24 clopidogrel 75 mg tablet 75 mg PO DAILY 11/27/24 12/10/24 furosemide 20 mg tablet 20 mg PO DAILY 11/27/24 12/10/24 glipizide 5 mg tablet 5 mg PO DAILY 11/27/24 12/10/24 lisinopril 40 mg tablet 40 mg PO DAILY 11/27/24 12/10/24 omeprazole 40 mg capsule,delayed 40 mg PO DAILY 11/27/24 12/10/24 release tadalafil 5 mg tablet 5 mg PO DAILY 11/27/24 12/10/24 Allergies Allergy/AdvReac Type Severity Reaction Status Date / Time No Known Drug Allergies Allergy Verified 05/15/25 17:11 Review of Systems ROS Status of ROS 10 or more systems reviewed and unremarkable except as noted in history and below [facility] Medical History (Updated 05/15/25 @ 19:21 by Jenniffer Espinal) Colostomy in place ?Z93.3 - Colostomy status (ICD-10) Knee pain ?M25.569 - Pain in unspecified knee (ICD-10) Back pain ?M54.9 - Dorsalgia, unspecified (ICD-10) Arthritis ?M19.90 - Unspecified osteoarthritis, unspecified site (ICD-10) Snores ?R06.83 - Snoring (ICD-10) Sleep apnea ?G47.30 - Sleep apnea, unspecified (ICD-10) S/P extracorporeal shock wave therapy ?Z98.890 - Other specified postprocedural states (ICD-10) Fatigue ?R53.83 - Other fatigue (ICD-10) Diverticulosis ?K57.90 - Diverticulosis of intestine, part unspecified, without perforation or abscess without bleeding (ICD-10) Lower extremity edema ?R60.0 - Localized edema (ICD-10) Headache ?R51.9 - Headache, unspecified (ICD-10) Chest pain ?R07.9 - Chest pain, unspecified (ICD-10) Dyspnea on exertion ?R06.09 - Other forms of dyspnea (ICD-10) Diabetes ?E11.9 - Type 2 diabetes mellitus without complications (ICD-10) Hyperlipidemia ?E78.5 - Hyperlipidemia, unspecified (ICD-10) CAD (coronary artery disease) ?I25.10 - Atherosclerotic heart disease of [place] coronary artery without angina pectoris (ICD-10) Renal cyst ?N28.1 - Cyst of kidney, acquired (ICD-10) Erectile dysfunction ?N52.9 - Male erectile dysfunction, unspecified (ICD-10) Hiatal hernia ?K44.9 - Diaphragmatic hernia without obstruction or gangrene (ICD-10) GERD (gastroesophageal reflux disease) ?K21.9 - Gastro-esophageal reflux disease without esophagitis (ICD-10) BPH with obstruction/lower urinary tract symptoms ?N40.1 - Benign prostatic hyperplasia with lower urinary tract symptoms (ICD-10) ?N13.8 - Other obstructive and reflux uropathy (ICD-10) Kidney stones ?N20.0 - Calculus of kidney (ICD-10) Surgical History (Updated 11/27/24 @ 11:27 by Celia Burr NP) H/O hand surgery ?Z98.890 - Other specified postprocedural states (ICD-10) History of colon resection ?Z90.49 - Acquired absence of other specified parts of digestive tract (ICD-10) History of cholecystectomy ?Z90.49 - Acquired absence of other specified parts of digestive tract (ICD-10) History of hernia repair ?Z98.890 - Other specified postprocedural states (ICD-10) ?Z87.19 - Personal history of other diseases of the digestive system (ICD-10) S/P cataract extraction and insertion of intraocular lens ?Z98.49 - Cataract extraction status, unspecified eye (ICD-10) ?Z96.1 - Presence of intraocular lens (ICD-10) Hx of 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) ?Z95.1 - Presence of aortocoronary bypass graft (ICD-10) History of esophagogastroduodenoscopy (EGD) ?Z98.890 - Other specified postprocedural states (ICD-10) H/O colonoscopy ?Z98.890 - Other specified postprocedural states (ICD-10) Family History (Updated 11/27/24 @ 11:27 by Celia Burr NP) Other Family history of coronary artery disease Family history of diabetes mellitus Family history of heart disease Family history of hypertension Social History (Updated 12/10/24 @ 07:42 by Virgen Holliday) Within the past year, how often did you have a drink containing alcohol: monthly or less Smoking status: Former smoker Non-prescribed substance use: denies use Previous occupational history: retired Highest level of school completed/degree received: high school graduate Little interest or pleasure in doing things: not at all Feeling down, depressed, or hopeless: not at all Exam Narrative Exam Narrative: All Systems are negative except as noted/marked.All systems reviewed and otherwise negative Nurses note and vital signs reviewed and patient is not hypoxic. General: The patient appears well and in no apparent distress. Patient is resting comfortably on cart. Skin: Warm, dry, no pallor noted. There is no rash noted. Head: Normocephalic, atraumatic Eye: Normal conjunctiva, no drainage, EOMI. PERRL, no nystagmus Ears, Nose, Mouth, and Throat: oral mucosa is moist. Nares patent. Mouth without vesicles. Ear canals patent. Tm's without Erythema Cardiovascular: Regular Rate and Rhythm Respiratory: Patient is in no distress, no accessory muscle use, lungs are clear to auscultation, no wheezing, rales or rhonchi Back: non-tender, no CVA tenderness bilaterally to percussion. GI: Normal bowel sounds, no tenderness to palpation, no masses appreciated. No rebound, guarding, or rigidity noted. Musculoskeletal: The patient has no evidence of calf tenderness, no pitting edema, symmetrical pulses noted bilaterally Neurological: A&O x4, normal speech Psychiatric: Cooperative Constitutional Vital Signs, click to edit/add: Last Vital Signs Temp 97.6 F 05/15/25 17:12 Pulse 72 05/15/25 19:17 Resp 16 05/15/25 19:17 BP 115/64 05/15/25 19:17 Pulse Ox 99 05/15/25 19:17 O2 Del Method Room Air 05/15/25 19:17 Course Vital Signs Vital signs: Vital Signs Temperature 97.6 F 05/15/25 17:12 Pulse Rate 86 05/15/25 17:12 Respiratory Rate 18 05/15/25 17:12 Blood Pressure 96/66 05/15/25 17:12 Pulse Oximetry 97 05/15/25 17:12 Oxygen Delivery Method Nasal Cannula 05/15/25 17:12 Temperature 97.6 F 05/15/25 17:12 Pulse Rate 72 05/15/25 19:17 Respiratory Rate 16 05/15/25 19:17 Blood Pressure 115/64 05/15/25 19:17 Pulse Oximetry 99 05/15/25 19:17 Oxygen Delivery Method Room Air 05/15/25 19:17 Medical Decision Making MDM Narrative Medical decision making narrative: 70-year-old male presents here with a chief complaint of hypotension and dizziness. Patient states he was at a yazidism event became dizzy. When he got home after the yazidism event where he had had some food because he thought his blood sugar may have been elevated he tried to put his dogs on a leash and bent over and felt very dizzy. He said he had a minimal headache at that time. He states he felt as if he was going to pass out. Patient denies a history of blurry vision or double vision. She has no history of hypotension. He states the symptoms have subsided as he is here at the emergency room. His blood pressure is still low at 96/66 upon arrival. He has no nystagmus. He denies any dizziness but states he had nausea earlier. Patient denies a history of a stroke or vertigo in the past. Thank you patient presented here with chief complaint of dizziness and feeling like he was going to pass out. Patient states symptoms have subsided this time. He states he was at home when he bent over he became dizzy. Denies a history of vertigo or dizziness in the past. CT scan and blood work and chest x-ray all reviewed and unremarkable other than a mildly low sodium of 135. Patient was given IV fluids. He does not have any dizziness at this time negative Hallpike maneuver. Patient was hypotensive upon arrival was given a liter of fluids and at discharge his blood pressure was 110/65 and he felt much better. I believe his symptoms may be due to a slight dehydration. Patient verbalized understanding agrees with plan of care. Differential Diagnosis Differential Diagnosis: hypotension, dizziness, dehydration Medical Records Medical records reviewed: Yes I reviewed the patient's medical records Lab Data Lab results reviewed: Yes I reviewed the patient's lab results Labs: Lab Results 05/15/25 Range/Units 17:58 WBC 8.5 (4.0-11.0) 10^3/uL RBC 4.87 (4.70-6.10) 10^6/uL Hgb 15.1 (14.0-18.0) g/dL Hct 41.6 L (42.0-54.0) % MCV 85.4 (80.0-94.0) fL MCH 31.0 (25.9-34.0) pg MCHC 36.3 H (29.9-35.2) g/dL RDW 12.3 (11.0-15.0) % Plt Count 230 (150-450) 10^3/uL MPV 9.9 (9.5-13.5) fL Neut % (Auto) 64.2 (43.0-75.0) % Lymph % (Auto) 20.9 (20.5-60.0) % [place] % (Auto) 11.3 (1.7-12.0) % Eos % (Auto) 2.9 (0.9-7.0) % Baso % (Auto) 0.5 (0.2-2.0) % Neut # (Auto) 5.5 (1.4-6.5) 10^3/uL Lymph # (Auto) 1.8 (1.2-3.8) 10^3/uL [place] # (Auto) 1.0 H (0.3-0.8) 10^3/uL Eos # (Auto) 0.3 (0.0-0.7) 10^3/uL Baso # (Auto) 0.0 (0.0-0.1) 10^3/uL Abs Immat Gran (auto) 0.02 (0.00-0.03) 10^3/uL Imm/Tot Granulo (auto) 0.2 (0.0-0.5) % PT 10.8 (9.0-11.6) sec INR 1.02 APTT 25.6 (22.3-36.2) sec Sodium 135 L (136-145) mmol/L Potassium 4.2 (3.5-5.1) mmol/L Chloride 99 (98-107) mmol/L Carbon Dioxide 24.2 (21.0-32.0) mmol/L Anion Gap 16.0 BUN 13.0 (7.0-18.0) mg/dL Creatinine 1.76 H (0.70-1.30) mg/dL Est GFR ( Amer) 47 L (>=60 mL/min/1.73m^2) Est GFR (Non-Af Amer) 38 L (>=60 mL/min/1.73m^2) BUN/Creatinine Ratio 7.4 Glucose 127 H (74-106) mg/dL Calcium 9.8 (8.5-10.1) mg/dL Total Bilirubin 0.6 (0.2-1.0) mg/dL AST 36 (15-37) U/L ALT 53 (16-63) U/L Alkaline Phosphatase 72 (46-116) U/L Troponin I High Sens 6.7 (4.0-76.1) pg/mL NT-Pro-B Natriuret Pep 85.0 (<=900.0) pg/mL Total Protein 7.5 (6.4-8.2) g/dL Albumin 4.3 (3.4-5.0) g/dL Globulin 3.2 g/dL Albumin/Globulin Ratio 1.[address] scan - head: Radiologist's impression: ITS Impressions Chest X-Ray 05/15/25 17:23 IMPRESSION: No acute cardiopulmonary pathology. Impression dictated by: Oscar Ribeiro M.D. 05/15/2025 5:58 PM Dictation Location: [place] [address] Electronically authenticated by: [id number] Y Date: 05/15/2025 17:[address] 05/15/25 17:29 IMPRESSION: No acute intracranial pathology. Chronic age-related neurodegenerative changes are noted as above. Impression dictated by: Oscar Ribeiro M.D. 05/15/2025 6:00 PM Dictation Location: [facility] Electronically authenticated by: [id number] Y Date: 05/15/2025 18:00 ECG Data Interpretation: 1718 EKG shows a sinus rhythm with 73 bpm right bundle branch block noted IA interval 158 ms QRS duration 138 ms similar EKG compared to previous EKG on 11/27/2024. Discharge Plan Discharge Chief Complaint: Dizziness Clinical Impression: Dizziness, Acute hyponatremia, Hypotension, Dehydration Patient Disposition: Home, Self-Care Time of Disposition Decision: 18:58 Condition: Good Prescriptions / Home Meds: No Action aspirin 81 mg tablet,delayed release (DR/EC) 81 mg PO DAILY atorvastatin 80 mg tablet 80 mg PO DAILY carvedilol 6.25 mg tablet 6.25 mg PO Q12H clopidogrel 75 mg tablet 75 mg PO DAILY omeprazole 40 mg capsule,delayed release(DR/EC) 40 mg PO DAILY furosemide 20 mg tablet 20 mg PO DAILY lisinopril 40 mg tablet 40 mg PO DAILY glipizide 5 mg tablet 5 mg PO DAILY tadalafil 5 mg tablet 5 mg PO DAILY ascorbic acid (vitamin C) 1,000 mg capsule 1 g PO DAILY Print Language: Montenegrin Instructions: Hyponatremia (ED), Lightheadedness (ED) Referrals: Masha Ball MD [Primary Care Provider, Family Practice] - 1 week Discharge Date/Time: 05/15/25 19:20
[2025-05-15] MEDS: 0.9 % SODIUM CHLORIDE 1,000 ML 1000 ML IV (18:03)
[2025-05-15 18:16] LABS: Hematocrit 41.6 % (42.0-54.0); Hemoglobin 15.1 g/dL (14.0-18.0); Immature Granulocytes Abs Auto 0.02 10^3/uL (0.00-0.03); Immature Granulocytes Pct Auto 0.2 % (0.0-0.5); Lymphocytes Absolute Auto 1.8 10^3/uL (1.2-3.8); Mean Corpuscular HGB Conc 36.3 g/dL (29.9-35.2); Mean Corpuscular Hemoglobin 31.0 pg (25.9-34.0); Mean Corpuscular Volume 85.4 fL (80.0-94.0); Platelet Count 230 10^3/uL (150-450); Red Blood Count 4.87 10^6/uL (4.70-6.10); White Blood Count 8.5 10^3/uL (4.0-11.0)
[2025-05-15 18:26] LABS: Alanine Aminotransferase 53 U/L (16-63); Albumin Globulin Ratio 1.3; Albumin Level 4.3 g/dL (3.4-5.0); Alkaline Phosphatase 72 U/L (46-116); Anion Gap 16.0; Aspartate Amino Transferase 36 U/L (15-37); Blood Urea Nitrogen 13.0 mg/dL (7.0-18.0); Calcium 9.8 mg/dL (8.5-10.1); Carbon Dioxide 24.2 mmol/L (21.0-32.0); Chloride 99 mmol/L (98-107); Estimated GFR (African America 47 (>=60 mL/min/1.73m^2); Estimated GFR (Non-African Ame 38 (>=60 mL/min/1.73m^2); Globulin 3.2 g/dL; Glucose 127 mg/dL (74-106); INR 1.02; Partial Thromboplastin Time 25.6 sec (22.3-36.2); Potassium 4.2 mmol/L (3.5-5.1); Prothrombin Time 10.8 sec (9.0-11.6); Sodium 135 mmol/L (136-145); Total Protein 7.5 g/dL (6.4-8.2)
[2025-05-15 18:32] LABS: NT Pro B Type Natriuretic Pept 85.0 pg/mL (<=900.0)
== END 2025-05-15 19:20 | disposition home or self-care (01) ==
PROVIDERS: Physician Assistant; Emergency Provider Emergency Medicine; PCP Family Medicine
DX: E86.0 Dehydration (principal); E87.1 Hypo-osmolality and hyponatremia; R42 Dizziness and giddiness; I95.9 Hypotension, unspecified; Z87.891 Personal history of nicotine dependence; R51.9 Headache, unspecified; R11.0 Nausea
CPT/HCPCS: 36415; 70450; 71045; 80053; 83880; 84484; 85025; 85610; 85730; 93005; 96361; 96374; 99285; J2405

== ENCOUNTER 2025-06-02 10:40 | Outpatient (OUT) | payer MEDICARE, OTHER, SELFPAY ==
--- OUTSIDE RECORDS SUMMARY | 2025-05-24 06:36 | XMS_ITS | Continuity of Care Document ---
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 Name Role Phone Masha Ball MD Primary Care Provider Masha Ball MD Attending Provider [phone] Jenniffer Espinal PA-C Attending Provider Unavailable Elizabeth Pino CMA Attending Provider Unavaila ble Care Teams Patient Care Team Team Status: Active Member Role/Relationship Status Dates Masha Ball MD Primary Care Provider Active Visit Care Team Team Status: Inactive Member Role/Relationship Status Dates Masha Ball MD Primary Care Provider Active Start: March 30, 2025 End: March 30, 2025Benita Breaux ProviderActiveStart: March 30, 2025 End: March 30, 2025 Visit Care Team Team Status: Inactive Member Role/Relationship Status Dates Masha Ball MD Primary Care Provider Active Start: April 14, 2025 End: April 14, 2025Benita Breaux ProviderActiveStart: April 14, 2025 End: April 14, 2025 Patient Care Team Team Status: Active Member Role/Relationship Status Hattie Ball MD Primary Care Provider Active Start: May 15, 2025 Sanya Malik ProviderActiveStart: May 15, 2025 Patient Care Team Team Status: Active Member Role/Relationship Status Dates Masha Ball MD Primary Care Provider Active Start: May 17, 2025 Elizabeth Pino CMAAttmigue ProviderActiveStart: May 17, 2025 Patient Care Team Team Status: Inactive Member Role/Relationship Status Dates Masha Ball MD Primary Care Provider Active Start: May 24, 2025 End: October 27th, 202Benita Jiménez ProviderActiveStart: May 24, 2025 End: May 24, 2025 Chief Complaint and Reason for Visit Chief Complaint Admit Date bp prescription question March 30, 2025 3:07pm Follow up Ozempic April 14, 2025 11:12am Amb Documentation May 17, 2025 3 :50pm [place] hos f/u on 05/15; Blood pressur e dropped May 24, 2025 10:47am Reason for Visit Admit Date Type 2 diabetes mellitus with hyperglyce ayesha March 30, 2025 3:07pm Class 2 obesity with body ma ss index (BMI) of 36.0 to 36.9 in adult April 14, 2025 11:12am Type 2 diabetes mellitus with hyperglyce ayesha April 14, 2025 11:12am Type 2 diabetes mellitus wit h other circulatory complications April 14, 2025 11:12am Allergies, Adverse Reactions, Alerts Allergen Type Severity Reaction Last Updated Verified Status No Known Allergies Allergy Unknown May 24, 2025 11:04amYesActive Social History Smoking Status Unknown if ever smoked Observation Status Observation Response Date of Response Legal Sex [facility] (finding) [facility] 1954 Family History Relationship Condition Age at Onset Recorded Date/T santino father Heart disease Unknown DeceasedUnknownmotherDeceasedUnknownDiabetes mellitusUnknown Problems Active Problems Problem Diagnosis/Recorded Date Onset Date Stat Type 2 diabetes mellitus wit h hyperglycemia October 02, 2023 2:09pm Unknown Active Enlarged prostate April 23, 2024 8:43am Unknown Active Essential (primary) hypertension October 02, 2023 2:09p m Unknown Active Type 2 diabetes mellitus wit h other circulatory complications April 23, 2025 12:24pm Unknown Activ e Abdominal pain March 28, 2024 9:54pm Unknown A ctive Class 2 obesity with body ma ss index (BMI) of 36.0 to 36.9 in adult April 23, 2025 12:23pm Unknown Active Medications Medication Status Dose Units Route Directions Qty Days Refills S tart Date Stop Date End Date Reason(s) Instructions Adherence Glipizide 10 mg tablet Discontinued 0 .ROUTE.PBIFXJQ797Slzu 2023 3:38pmAugust 2023 3:40pmTAKE 1 TABLET BY MOUTH EVERY DAYGlipizide 10 mg tabletDiscontinued0.ROUTE.FVNRLXR637Vubbnc 2023 3:40pmNovember 2023 2:13pmTAKE 1 TABLET BY MOUTH EVERY DAYOmeprazole 40 mg capsule,delayed release(DR/EC)Discontinued0.ROUTE.KQEYMVP083Dtsdon 2023 3:40pmOctober 2024 12:23pmTAKE 1 CAPSULE BY MOUTH EVERY DAYTadalafil 5 mg tabletDiscontinued0.ROUTE.NPSZQJR974Acvxkw 26th, 2024 3:40pmNovember 2023 2:55pmTAKE 1 TABLET BY MOUTH DAILYLisinopril 40 mg tabletActive0.ROUTE .VRIAFZL882Mgxrvqei 12th, 2024 2:13pmTAKE 1 TABLET BY MOUTH EVERY DAY IN THE MORNINGComplies with drug therapyGlipizide 10 mg tabletDiscontinued0.ROUTE .DSEKBEG637Bkojctwv 12th, 2024 2:13pmFebruary 2024 4:13pmTAKE 1 TABLET BY MOUTH EVERY DAYBlood Sugar Diagnostic (Accu-Chek Guide Test Strips) strip Discontinued0.Oqvyy4072Abhklvcx 14th, 2024 1:00amNoveer 2023 4:03pmType 2 diabetes mellitus with hyperglycemia Type 2 diabetes mellitus with hyperglycemiaonce dailyBlood Sugar Diagnostic (Accu-Chek Guide Test Strips) stripActive0.Bgddu3091Dppluokv 19th, 2024 4:03pm Type 2 diabetes mellitus with hyperglycemia Type 2 diabetes mellitus with hyperglycemiaonce dailyTadalafil 5 mg tablet Discontinued0.ROUTE.JQQZFDB583Rgavaski2023 2:55pmMarch 2024 11:51am TAKE 1 TABLET BY MOUTH DAILYGlipizide 10 mg tabletDiscontinued0.ROUTE.BGMLGIE332 September 14, 2024 4:13pmMay 2024 8:12amTAKE 1 TABLET BY MOUTH EVERY DAY Tadalafil 5 mg tabletDiscontinued0.ROUTE.BMINGVJ740Ekgrz 2024 11:51amJune 2024 8:11amTAKE 1 TABLET BY MOUTH DAILYGlipizide 10 mg tabletDiscontinued0 .ROUTE.VLYTDTT250Mom2024 8:12amJuly 2024 11:05amTAKE 1 TABLET BY MOUTH EVERY DAYTadalafil 5 mg tabletDiscontinued0.ROUTE.LWEEIIJ163Labk 2024 8:11amSeptember 2024 8:38amTAKE 1 TABLET BY MOUTH DAILYGlipizide 10 mg tabletDiscontinued0.ROUTE.OTOTNPY590Ohfd 2024 11:05amSeptember 2024 8:20amTAKE 1 TABLET BY MOUTH EVERY DAYGlipizide 10 mg tabletDiscontinued0.ROUTE .BSQARVB212Lvylxqyac 2024 8:20amSeptember 2024 3:45pmTAKE 1 TABLET BY MOUTH EVERY DAYTadalafil 5 mg tabletActive0.ROUTE.OVGLFUX896Zdoswgifc 2024 8:38amTAKE 1 TABLET BY MOUTH DAILYComplies with drug therapyOmeprazole 40 mg capsule,delayed release(DR/EC)Active0.ROUTE.WIEJMHU894Yrxyqgu 2024 12:23pm TAKE 1 CAPSULE BY MOUTH EVERY DAYComplies with drug therapyTadalafil 5 mg tablet Oeydmyxoebwd4GYDRTIvgskKgzzk 2023 1:00amAugust 2023 3:40pm FreeTextSig: TAKE ONE TABLET BY MOUTH DAILY; Note: Source Status: Taking; Refills: 3; Qty: 90 Tablet; Provider: Lizzy Flanagan ( )Glipizide 5 mg gcsluxTjketqalnnzv2DABUGOjrinToisb 2023 1:00amMarc 2023 10:27pm FreeTextSig: TAKE 1 TABLET BY MOUTH EVERY DAY; Note: Source Status: Start; Refills: 3; Qty: 90 Tablet; Provider: Lizzy Flanagan ( )Lisinopril 40 mg ouxqdqZnpylefzepba7EXOKDAfkex morningMiddletown Hospital 2023 1:00am[facility] 2023 2:13pmFreeTextSig: TAKE 1 TABLET BY MOUTH EVERY DAY IN THE MORNING; Note: Source Status: Taking; Refills:3; Qty: 90 Tablet; Provider: Lizzy Flanagan ( )Metoprolol Tartrate 50 mg tabletActiveMGPOMarch 2023 1:00am FreeTextSig: Oral; Note: Source Status: Taking; Qty: 180 Tablet; Provider: Lizzy Flanagan ( )Complies with drug therapySpironolactone 25 mg cmzltkXddlgk80INTRFhobu dailyKindred Hospital At Waynech 2023 1:00amFreeTextSig: twice a day; Note: Source Status: Taking; Provider: Lizzy Flanagan ( )Complies with drug therapyAspirin 81 mg tablet,delayed release (DR/EC)Mjbiua63VXBCBsmyx March 2023 1:00amFreeTextSig: TAKE 1 TABLET BY MOUTH EVERY DAY Oral; Note: Source Status: Taking; Refills: 0; Qty: 90 Each; Provider: EDILBERTO BENSON Complies with drug therapyOmeprazole 40 mg capsule,delayed release(DR/EC) Wiulpsdzkfvx2FQNBTVdaoaSkcce 2023 1:00amAugust 2023 3:40pm FreeTextSig: TAKE 1 CAPSULE BY MOUTH EVERY DAY; Note: Source Status: Taking; Refills: 3; Qty: 90 Capsule; Provider: Lizzy Flanagan ( ) Clopidogrel 75 mg pwnbcqCubpya53UELDFzkvpWxlqa 2023 1:00amFreeTextSi tablet Orally Once a day; Note: Source Status: Taking; Provider: Lizzy Flanagan ( )Complies with drug therapyAlbuterol Sulfate 90 mcg/actuation HFA aerosol usvfdbyHwiagt1BKKIKMUVMPDMQHGWGCS 4-6 HOURSMiddletown Hospital 2023 1:00am FreeTextSi puffs as needed Inhalation every 4-6 hours; Note: Source Status: Not-Taking\PRN; Refills: 0; Qty: 1 each; Provider: Weston HernandezComplies with drug therapyFurosemide 20 mg gqhhkcEzcrtk20ELZOPxrcuPyzsh 2023 1:00am Complies with drug therapyGlipizide 10 mg sdyjsxLfgxjjpwiiwx97FBPJFhjyj876Rwzjh 2023 1:00amJune 2023 3:39pmSemaglutide (Ozempic) 0.25 mg or 0.5 mg (2 mg/3 mL) pen injectorActive0.5MGSUBCUTevery nvpn23Rnkghprel 3rd, 2025 12:00amfor 4 weeksComplies with drug therapy Immunizations Immunization Event Date Not Given Reason Dose Number [employer] Lot Number Reason(s) Given Vaccine Information Statement (VIS) Detail Administration Location Fluzone TIV High-Dose 65YR+ March 30, 2025 [id number] [facility] Centerinflu[facility], unspecified formulationOctober 2017influenza, unspecified formulationNovneumococcal Conjugate Vaccine, 20 valentNov2021Tetanus, Diphtheria adult, 5 Lf pres free absOctober 2015Tetanus, Diphtheria adult, 5 Lf pres free absOctober 2016Shingles (Zoster)May 30, 2016 Relevant Diagnostic Tests and/or Laboratory Data Laboratory Results Test Collection Date/Time Result Date/Time Result Interpretation Reference Range Result Comment Performing Site Bedside Hemoglobin A1c March 30, 2025 4:07pm Sept emb2024 4:14pm 7.6 % B-Type Natriuretic PeptideOct2024 5:58pmOctober 2024 5:58pm85.0 pg/mL<=900.0Troponin I High SensitivityOct2024 5:58pmOctober 2024 5:58pm6.7 pg/mL4.0-76.1CUT-OFF POINTS HAVE BEEN ESTABLISHED BASED ON THE FOURTHUNIVERSAL DEFINITION OF MYOCARDIAL INFARCTION. THE UPPERREFERENCE LIMIT (URL) OF TROPONIN, DEFINED THE 99THPERCENTILE OF cTnI DISTRIBUTION IN A REFERENCE POPULATION,HAS BEEN CONFIRMED THE DECISION THRESHOLD FOR MIDIAGNOSIS.99TH PERCENTILE = 76.2 PG/MLNOTE: HIGH-SENSITIVITY TROPONIN ASSAY IS NOT INTENDED TO BEUSED IN ISOLATION BUT SHOULD BE INTERPRETED IN CONJUNCTIONWITH OTHER DIAGNOSTIC AND CLINICAL INFORMATION.Anion GapOct2024 5:58pm16.0 Activated Partial Thromboplast TimeOct2024 5:58pmOctober 2024 5:58pm25.6 sec22.3-36.2Prothromb Time International RatioOct2024 5:58pmOctober 2024 5:58pm1.02DESIRED INR:2.0-3.0 CONDITIONS NOT LISTED BELOW2.5-3.5 FOR PROSTHETIC HEART VALVE REPLACEMENT2.5-3.5 RECURRENT THROMBOSIS Basophils # (Auto)May 15, 2025 5:58pmOctober 2024 5:58pm0.0 10 3/uL 0.0-0.1Albumin/Globulin RatioOctober 2024 5:58pm1.3Prothrombin TimeOctober 2024 5:58pmOctober 2024 5:58pm10.8 sec9.0-11.6Basophils (%) (Auto) May 15, 2025 5:58pmOctober 2024 5:58pm0.5 %0.2-2.0AlbuminOctober 2024 5:58pm4.3 g/dL3.4-5.0Eosinophils # (Auto)May 15, 2025 5:58pm May 15, 2025 5:58pm0.3 10 3/uL0.0-0.7Alkaline PhosphataseOctober 2024 5:58pm72 U/O34-936Ltcyvvhxwtp (%) (Auto)May 15, 2025 5:58pmOctober 2024 5:58pm2.9 %0.9-7.0Alanine Aminotransferase (ALT/SGPT)May 15, 2025 5:58pm53 U/K79-53ComybfgmtiGqsuemv 2024 5:58pmOctober 2024 5:58pm41.6 %Below low .0-54.0Aspartate Amino Transf (AST/SGOT)May 15, 2025 5:58pm36 U/T43-88ZmzexbznvwUkgviwm 2024 5:58pmOctober 2024 5:58pm15.1 g/dL14.0-18.0BUN/Creatinine RatioOctober 2024 5:58pm7.4 Immature Granulocyte # (Auto)May 15, 2025 5:58pmOctober 2024 5:58pm 0.02 10 3/uL0.00-0.03Blood Urea NitrogenOctober 2024 5:58pm13.0 mg/dL 7.0-18.0Immature Granulocyte % (Auto)May 15, 2025 5:58pmOctober 2024 5:58pm0.2 %0.0-0.5Calcium LevelOctober 2024 5:58pm9.8 mg/dL8.5-10.1 Lymphocytes # (Auto)May 15, 2025 5:58pmOctober 2024 5:58pm1.8 10 3/uL1.2-3.8Chloride LevelOctober 2024 5:58pm99 mmol/A50-889Qozanknvcsk (%) (Auto)May 15, 2025 5:58pmOctober 2024 5:58pm20.9 %20.5-60.0Carbon Dioxide LevelOctober 2024 5:58pm24.2 mmol/L21.0-32.0Mean Corpuscular HemoglobinOctober 2024 5:58pmOctober 2024 5:58pm31.0 pg25.9-34.0 CreatinineOctober 2024 5:58pm1.76 mg/dLAbove high normal0.70-1.30Mean Corpuscular Hemoglobin ConcentOctober 2024 5:58pmOctober 2024 5:58pm 36.3 g/dLAbove high rrunsp14.9-35.2Estimated GFR ()May 15, 2025 5:85de75Laryb low normal>=60 mL/min/1.73m 2Mean Corpuscular VolumeOctober 2024 5:58pmOctober 2024 5:58pm85.4 fL80.0-94.0Estimated GFR (Non- AmericanOctober 2024 5:33ed35Zyrjn low normal>=60 mL/min/1.73m 2 Monocytes # (Auto)May 15, 2025 5:58pmOctober 2024 5:58pm1.0 10 3/uL Above high normal0.3-0.8GlobulinOctober 18th, 2025 5:58pm3.2 g/dLMonocytes (%) (Auto)May 15, 2025 5:58pmOctober 2024 5:58pm11.3 %1.7-12.0Glucose LevelOctober 2024 5:57ij723 mg/dLAbove high -209Tdcw Platelet VolumeOctober 2024 5:58pmOctober 2024 5:58pm9.9 fL9.5-13.5Potassium LevelOctober 2024 5:58pm4.2 mmol/L3.5-5.1Neutrophils # (Auto)May 15, 2025 5:58pmOctober 2024 5:58pm5.5 10 3/uL1.4-6.5Sodium LevelOctober 2024 5:23yf189 mmol/LBelow low -451Vllybiflsga (%) (Auto)May 15, 2025 5:58pmOctober 2024 5:58pm64.2 %43.0-75.0Total BilirubinOctober 2024 5:58pm0.6 mg/dL0.2-1.0Platelet CountOctober 2024 5:58pmOctober 2024 5:16la513 10 3/gK038-969Romix ProteinOctober 2024 5:58pm7.5 g/dL 6.4-8.2Red Blood CountOctober 2024 5:58pmOctober 2024 5:58pm4.87 10 6/uL4.70-6.10Red Cell Distribution WidthOctober 2024 5:58pmOctober 2024 5:58pm12.3 %11.0-15.0Corrected White Blood CountOctober 2024 5:58pm May 15, 2025 5:58pm8.5 10 3/uL4.0-11.0 Vital Signs Vital Reading Result Reference Range Collection Date/Time Height 68 [in_i] March 30, 2025 3:01ziRuojds609.76 kgSeptember 2024 3:13pmHeart Rate64 /jnf64-696Wktanjxez 2024 3:13pmBP Adrpqwkj509 mm[Hg]100-140September 2024 3:13pmBP Sgqpvnpoi99 mm[Hg]60-100Sept2024 3:13pmBMI (Body Mass Index)36.8 kg/v8Ndmssctcc2024 3:15ejCuqchh24 [in_i]April 14, 2025 11:79xpEfrzeq245.50 kgSeptember 2024 11:13amHeart Rate80 /cid24-447 April 14, 2025 11:13amBP Zvccrvsu083 mm[Hg]100-140September 2024 11:13amBP Hqmgqkber73 mm[Hg]60-100September 2024 11:13amBMI (Body Mass Index)36.0 kg/b1Clcodezkx 2024 11:79tgBggxzx64 [in_i]May 24, 2025 11:81erZlbfrm236.32 kgOcts[facility] 2024 11:02amHeart Rate91 /wxk51-572Byrerjo 2024 11:12amBP Lhkuexgi119 mm[Hg]100-140Oct[facility] 2024 11:12amBP Gfhiflrzd89 mm[Hg]60-100Oct[facility] 2024 11:12amBMI (Body Mass Index)34.9 kg/t2Abxcspd 2024 11:02am Advance Directives Advance Directive Response Recorded Date/ Time Advance Directives No October 02 12:00pm Insurance Providers Guarantor Oswald Ochoa [address] [facility] [address] Info.Home Phone: Coverage Status Update:2025 Payer Group Member ID Coverage Type Subscriber Relationship to Subscriber Effective Date Expiration Date MMO Id: [id number] C Hamm Id: [id number] [address] [place] [address] Home Phone: [employer] [id number] C Hamm Id: [id number] [address] [place] [address] Home Phone: SelfMMO MCR Adv PFFS [id number] C Hamm Id: [id number] [address] [facility] [address] Home Phone: Self Encounters Encounter Location(s) Arrival/Admit Date Discharge/Departure Date Discharge/Departure Disposition Provider(s) Departed Physician/ Provider Office Visit -[facility] March 30, 2025 3:07pm March 30, 2025 3:53pm Discharged to home care or self care (routine discharge) Masha Ball MD Departed Physician/ Provider Office Visit -[facility] April 14, 2025 11:12am April 14, 2025 11:59am Discharged to home care or self care (routine discharge) Masha Ball MD Non-patient / Non-visit -[facility] O ctober 2024 5:58pm Nanda Malave-patient / Dby-ecbmr-[facility]October 2024 3:50pmCatraciel Pino CMADeparted Physician/Provider [facility] 10:47amOctober 2024 11:35am Discharged to home care or self care (routine discharge)Masha Ball MD Recent Diagnosis Onset Date Admit Date Type 2 diabetes mellitus with hyperglycemia Unkn own March 30, 2025 3:07pm Class 2 obesity with body ma ss index (BMI) of 36.0 to 36.9 in adult Unknown April 14, 2025 11:12am Type 2 diabetes mellitus with hyperglycemia Unkn own April 14, 2025 11:12am Type 2 diabetes mellitus wit h other circulatory complications Unknown April 14, 2025 11:12am Assessments Diagnosis Onset Date Resolution Status Admit Date Type 2 diabetes mellitus with hyperglyce ayesha acuteSept2024 3:07pmClass 2 obesity with body mass index (BMI) of 36.0 to 36.9 in adultacuteSeptember 2024 11:12amType 2 diabetes mellitus with hyperglycemiaacuteSept2024 11:12amType 2 diabetes mellitus with other circulatory complicationsacuteSeptember 2024 11:12am Plan of Treatment Author [facility]Authored[facility] 2024 1:05pmStop glipizide. Start ozempic. Sample given. Explained how and where to administer the weekly shot. Discussed side effects. Will call pt in about 1 month to check on readings and effects. Author Masha Ball [facility] HospitalAuthoredSeptember 2024 12:25pmIncrease dose of Ozempic to 0.5mg weekly. Samples given. Call w some glucose readings. Continue healthy diet and active lifestyle. Future Tests Future scheduled test information is unavailable Pending Tests Pending diagnostic test information is unavailable Future Visits Future appointment information is unavailable Future Procedures Future procedure information is unavailable Future Medications Future medication information is unavailable Patient Instructions Patient instructions are unavailable
--- OUTSIDE RECORDS SUMMARY | 2025-06-02 10:45 | XMS_ITS | Clinical Summary ---
Author Organization [facility] Address [address] [place] [address] Care Team Providers Care Entry Level Finance Name Role Phone Masha Ball MD Primary Care Provider [phone] Allergies No known active allergies Medications MedicationSigDispense QuantityRefillsLast FilledStart DateEnd DateStatus omeprazole (PriLOSEC) [address] capsule Take 1 tablet by mouth in the morning.Active lisinopril 40 mg tablet Indications:Essential hypertensionTAKE 1 TABLET BY MOUTH EVERY DAY IN THE MORNING 90 tablet ctive glipiZIDE (Glucotrol) 5 mg tablet Take 5 mg by mouth in the morning.09/27/2022ctive tadalafil (Cialis) 5 mg tablet Take 5 mg by mouth in the morning.Active cbvdejuwxwvf-cgpg-jkmaddmu-folic acid (Multivitamin 50 Plus) tablet Take 1 tablet by mouth in the morning.Active ezetimibe (Zetia) 10 mg tablet Indications:Coronary arteriosclerosis,Pure hypercholesterolemiaTake 1 tablet (10 mg) by mouth in the morning. 90 tablet ctive Additional Information Patient not taking.Reported on 01/28/2025 aspirin 81 mg EC tablet Indications:Atherosclerotic heart disease of [place] coronary artery without angina pectorisTAKE 1 TABLET BY MOUTH EVERY DAY 90 tablet 5Active Accu-Chek Guide test strips strip USE TO TEST BLOOD SUGAR EVERY DAY5Active Accu-Chek Softclix Lancets [facility] USE 1 LANCET DAILY TO CHECK BLOOD SUGAR*E11.65*06/02/2024ctive latanoprost (Xalatan) 0.005 % ophthalmic solution Administer 1 drop into both eyes at bedtime.Active ascorbic acid (Vitamin C) 500 mg tablet Take 500 mg by mouth in the morning.Active carvedilol (Coreg) 6.25 mg tablet Indications:Benign hypertensive heart disease without congestive heart failure Take 1 tablet (6.25 mg) by mouth with breakfast and with evening meal. 60 tablet [id number] furosemide (Lasix) 20 mg tablet Indications:Edema, unspecified typeTAKE 1 TABLET BY MOUTH EVERY DAY IN THE MORNING 90 tablet 5Active atorvastatin (Lipitor) 80 mg tablet Indications:Coronary artery disease due to lipid rich plaqueTAKE 1 TABLET BY MOUTH AT BEDTIME 90 tablet 5Active clopidogrel (Plavix) 75 mg tablet Indications:Coronary artery disease due to lipid rich plaqueTAKE 1 TABLET (75 MG) BY MOUTH IN THE MORNING 90 tablet [id number]/6Active Active Problems ProblemNoted DateDiagnosed AbwcAizgltnxfmytsb85/13/2025GERD (gastroesophageal reflux disease)10/08/2024Hiatal suhium4210/08/2024Kidney rygfnd0710/08/2024Renal cyst10/08/2024H/O four vessel coronary artery bypass graft05/23/2022 Overview (05/23/2022): CABG x 5 on 01/03/2022 Assessment & Plan (05/08/2023 10:40 AM EDT): stable Assessment & Plan (05/23/2022 1:30 PM EDT): S/P CABG x 5 on 01/03/2022 Coronary ytnygeispgqjdbzd20/31/2022 Assessment & Plan (05/08/2023 10:40 AM EDT): Coronary artery disease is stable Continue GDMT- ASA, plavix, lipitor, toprol and lisinopril continue risk factor modifications- heart healthy diet, regular exercise as tolerated and continue all medications. Assessment & Plan (06/27/2022 10:01 AM EST): Continue GDMT- ASA, plavix, lipitor, toprol and lisinopril Assessment & Plan (05/23/2022 1:54 PM EDT): Continue GDMT- ASA, lipitor, plavix, toprol and lisinopril No concerning symptoms today Assessment & Plan (04/25/2022 5:05 PM EDT): Continue GDMT, cardiac rehab Risk factor modifications- heart healthy diet, regular exercise and continue all medications Uppgjtt68/31/2022Benign prostatic uqpbgddizfo76/20/2022Dyspnea on exertion 12/15/2021 Assessment & Plan (05/08/2023 10:40 AM EDT): Stable without worsening WHITNEY. Assessment & Plan (05/23/2022 1:55 PM EDT): Stable Dyspnea, tolerating cardiac rehab/exercise well Erectile knylrqseeav71/20/2967Cxlohfgsfipwwa61/20/2022 Assessment & Plan (06/27/2022 10:01 AM EST): Continue lipitor Assessment & Plan (05/23/2022 1:30 PM EDT): Continue statin Assessment & Plan (04/25/2022 5:05 PM EDT): Continue statin Hypertensive gnwhohzq71/20/2022 Assessment & Plan (05/08/2023 10:39 AM EDT): Hypertension is very stable at home and elevated in office Continue lisinopril, toprol and lasix Renal function has been stable Assessment & Plan (06/27/2022 2:58 PM EST): Hypertension is still uncontrolled Renal function remains stable- 06/25/22 BUN 10, CR 1.00 K+ 3.7 Continue toprol 100mg, lisinopril 40 mg and increase aldactone to 50 mg daily Repeat BMP in 1-2 weeks to assess renal fx and potassium levels Assessment & Plan (05/23/2022 1:54 PM EDT): Reviewed labs- 05/08/22 BUN 9, Cr 1.13 and K+ 4.1-normal Continue Lisinopril, toprol and lasix Will add aldactone for better HTN management and slight edema. Repeat BMP in 1 week to assess renal function and K+ Assessment & Plan (04/25/2022 2:30 PM EDT): Uncontrolled HTN today in cardiac rehab, will resume lisinopril 20 mg daily, asked pt to monitor b/p at home 1-2 times/day, and maintain a log, goal b/p 130/80 or less. Repeat BMP 1-2 weeks and RTC 1 month Type 2 diabetes xdabmtbd57/20/2022 Assessment & Plan (05/23/2022 1:55 PM EDT): F/u with PCP Assessment & Plan (04/25/2022 5:05 PM EDT): F/u with PCP. Pure ekmbbeaggndttnbduhpr84/15/201410/11/2023 Assessment & Plan (05/08/2023 10:44 AM EDT): Continue lipitor, LDL 106 therefore will add zetia to regime and repeat Lipid level in 3 months Diverticulitis of colon Encounters DateTypeDepartmentCare QfyzMuxxvmwrlrq88/14/2025[facility] [address] [address] Evie Sexton MD Coronary artery disease due to lipid rich plaque (Primary Dx)from Last 3 Months Immunizations ImmunizationAdministration DatesNext DueInfluenza, High-dose Seasonal, Quadrivalent, Preservative Free06/05/2022Influenza, injectable, quadrivalent, preservative free05/02/2018Influenza, seasonal, injectable, preservative free, 6 moonths & older05/15/2017,05/04/2016Pneumococcal Conjugate PCV Family History Medical HistoryRelationNameCommentsChildhood respiratory diseaseFatherCOPDMother RelationNameStatusCommentsFatherDeceasedMotherDeceased Social History Tobacco UseTypesPacks/DayYears UsedDateSmoking Tobacco: FormerCigarettes Smokeless Tobacco: Never Tobacco Cessation:Counseling Given: Not Answered Alcohol UseStandard Drinks/WeekCommentsYes0 (1 standard drink = 0.6 oz pure alcohol)occasionalUT Safety & EnvironmentAnswerDate RecordedFear of Current or Ex-PartnerNot on file09/19/2023Emotionally AbusedNot on file09/19/2023hysically AbusedNot on file09/19/2023Sexually AbusedNot on file09/19/2023hysically or Sexually AbusedNot on file09/19/2023Sex and Gender InformationValueDate Recorded Sex Assigned at BirthNot on fileLegal GhqRnyd2501/25/2022 12:45 AM EDTGender IdentityNot on fileSexual OrientationNot on file Last Filed Vital Signs Vital SignReadingTime TakenCommentsBlood Qnpkmwye039/7207 9:49 AM EDT Obsyu842001/28/2025 9:49 AM RVKSnritlsbjhi75.9 ??C (98.4 ??F)12/26/2021 1:43 PM EDTRespiratory Coxd3375 11:14 AM EDTOxygen Ynlptfoylp28%01/28/2025 9:49 AM EDTInhaled Oxygen Concentration--Rtidlr821 kg (242 lb)01/28/2025 9:49 AM EDT Dhlxpk130.3 cm (5' 9 )01/28/2025 9:49 AM EDTBody Mass Index35.7407 9:49 AM EDT Plan of Treatment DateTypeDepartmentCare Team (Latest Contact Info)Ickkgoqvfyf75/12/2025 1:45 PM ESTOffice Visit [facility] [address] [place] [address] Katia Mcdaniel MD [address] [facility] [place] [address] Health MaintenanceDue DateLast DoneCommentsCT Fqrkpdvwqyll1954Colonoscopy 1954olorectal Cancer Kgzrbpnke1954FIT-DNA1954FIT1954 FOBT1954Medicare Annual Wellness (AWV)1955 2911Vslutlmewopyr1954 Diabetes: Retinopathy Rhnuiwvnx38/19/1964Depression Lmmrwkyio14/19/1966Diabetes: Urine Protein Jxiuvfayy86/19/1973Adult Bfyheue1603/16/1976Zoster Vaccines (1 of 2) 2004Fall Risk Fysvbqyjx18/19/2019Diabetes: Hemoglobin A1C04/03/2022 2COVID-19 Vaccine (2024- season)2025Pneumococcal Vaccine: 50+ SaltoZsfpgtwjn70/08/2022Influenza MxubcpuOkcpytttb79/02/2025, 06/05/2022, 05/02/2018, Additional history existsHIB VaccinesAged OutNo longer eligible based on patient's age to complete this topicHPV VaccinesAged OutNo longer eligible based on patient's age to complete this topicIPV VaccinesAged OutNo longer eligible based on patient's age to complete this topicMeningococcal B VaccineAged OutNo longer eligible based on patient's age to complete this topic Meningococcal VaccineAged OutNo longer eligible based on patient's age to complete this topicRotavirus VaccinesAged OutNo longer eligible based on patient's age to complete this topic Procedures Procedure NamePriorityDate/TimeAssociated DiagnosisCommentsHEMOGLOBIN C9OSuwqeiw 01/01/2022 6:33 PM EDT from Last 3 Months or Most Recently Relevant to Health Maintenance Results * (ABNORMAL) Hemoglobin A1c (01/01/2022 6:33 PM EDT)ComponentValueRef RangeTest MethodAnalysis TimePerformed AtPathologist SignatureHemoglobin A1C6.4(H)4.0 - 6.0 %LAB CONVERSIONSEstimated Average Nktoahx969gtaj/LLAB CONVERSIONSSpecimen (Source)Anatomical Location / LateralityCollection Method / VolumeCollection TimeReceived Time01/01/2022 6:33 PM EDT01/01/2022 6:38 PM EDT Narrative LAB CONVERSIONS - 01/02/2022 7:36 AM EDT Yes: Add to Previous draw if able Authorizing ProviderResult TypeResult StatusSarmed Puja COLON BLOOD ORDERABLES Final ResultPerforming OrganizationAddressCity/State/ZIP CodePhone Number LAB CONVERSIONS from Last 3 Months or Most Recently Relevant to Health Maintenance Insurance Care Teams Team MemberRelationshipSpecialtyStart DateEnd Date Masha Ball MD [address] [facility] [address] [facility]04/25/22
--- OUTSIDE RECORDS SUMMARY | 2025-06-02 10:45 | XMS_ITS | Clinical Summary ---
Author Organization [facility] Address [address] [place] [address] Care Team Providers Care Welder 2Nd Shift Name Role Phone Masha Ball MD Primary Care Provider [phone] Allergies No known active allergies Medications MedicationSigDispense QuantityRefillsLast FilledStart DateEnd DateStatus polyethylene glycol, PEG, 3350 (MiraLax) 17 g packet 1 (one) time each day at the same time.Active latanoprost (Xalatan) 0.005 % ophthalmic solution 1 (one) time each day at the same time.Active Multiple Vitamin (multivitamin) capsule OrallyActive tadalafil (Cialis) 5 MG tablet 1 (one) time each day at the same time.Active omeprazole (PriLOSEC) [address] capsule Take 40 mg by mouth in the morning.Active aspirin 81 MG EC tablet Take 1 tablet by mouth in the morning.Active atorvastatin (Lipitor) 80 MG tablet Take 1 tablet by mouth at bedtime.Active clopidogrel (Plavix) 75 MG tablet Take 1 tablet by mouth in the morning.Active lisinopril 40 MG tablet 3Active carvedilol (Coreg) 6.25 MG tablet 6.25 mg5Active glipiZIDE (Glucotrol) 10 MG tablet Take 10 mg by mouth Daily5Active furosemide (Lasix) 20 MG tablet Take 20 mg by mouth in the morning.5Active Active Problems ProblemNoted DateDiagnosed DateH/O four vessel coronary artery bypass graft 05/23/2022 Overview (02/04/2023): CABG x 5 on 01/03/2022 Last Assessment & Plan: S/P CABG x 5 on 01/03/2022 Coronary prrzktgnzaevuuwq26/31/2022 Overview (02/04/2023): Last Assessment & Plan: Continue GDMT- ASA, plavix, lipitor, toprol and lisinopril Eltimxr50/31/2022Benign prostatic yfjvelnvght69/20/2022Dyspnea on exertion 12/15/2021 Overview (02/04/2023): Last Assessment & Plan: Stable Dyspnea, tolerating cardiac rehab/exercise well Erectile omhmxxkedpr54/20/2173Llynehbsdpbwmm37/20/2022 Overview (02/04/2023): Last Assessment & Plan: Continue lipitor Type 2 diabetes zfnbopha76/20/2022 Overview (02/04/2023): Last Assessment & Plan: F/u with PCP Essential bacipxhzuhbw75/15/2014Pure graasunkvjcgpjnrzfhg61/15/2014 Diverticulitis of colon06/23/2013 Immunizations ImmunizationAdministration DatesNext DueInfluenza, High-dose Seasonal, Quadrivalent, Preservative Free06/05/2022Influenza, injectable, quadrivalent, preservative free05/02/2018Influenza, seasonal, injectable, preservative free 05/15/2017,05/04/2016Pneumococcal Conjugate PCV Family History Medical HistoryRelationNameCommentsHeart diseaseFatherCOPDMotherHeart disease MotherHypertensionMotherRelationNameStatusCommentsFatherAliveMotherDeceased (Age 81) Social History Tobacco UseTypesPacks/DayYears UsedDateSmoking Tobacco: FormerCigarettesQuit: 1990Smokeless Tobacco: Never Tobacco Cessation:Counseling Given: Not Answered Comments:Last smoked: 1-5 years Alcohol UseStandard Drinks/WeekCommentsYes0 (1 standard drink = 0.6 oz pure alcohol)Coffee 2-3 cups per daySex and Gender InformationValueDate RecordedSex Assigned at BirthNot on fileLegal GzrGrap1510/10/2022 7:14 PM EDTGender Identity Not on fileSexual OrientationNot on file Last Filed Vital Signs Vital SignReadingTime TakenCommentsBlood Gxkpqevh685/8604 12:00 PM EDT Pulse--Temperature--Respiratory Rate--Oxygen Saturation--Inhaled Oxygen Concentration--Wthgzu966 kg (245 lb)11/04/2017 12:00 PM NTJDoexgl203.3 cm (5' 9 )11/04/2017 12:00 PM EDTBody Mass Index36.18011/04/2017 12:00 PM EDT Plan of Treatment Not on file Insurance Care Teams Team MemberRelationshipSpecialtyStart DateEnd Date Masha Ball MD [address] [place] [address] PCP - GeneralFamily Medicine01/15/23
--- OUTSIDE RECORDS SUMMARY | 2025-06-02 10:48 | XMS_ITS | CCD ---
Author Organization [facility] Care Team Providers Care Manual Plate Filler Name Role Phone JACOB MCKEON Primary Care [...] Unavailable Jacob Mckeon MD Primary Care Provider [phone] JACOB MCKEON Primary Care Unavailable Justsu Braxton Attending Unavailable Mouchli, Mohamad A. Referring [...] Unavailable Jacob Mckeon MD Primary Care Provider [phone] Marcelino Griggs Attending Provider Jacob Mckeon MD Attending Provider Jacob Mckeon MD Primary Care Provider [phone] Jenniffer Espinal PA-C Attending Provider Unavailable Elizabeth Pino CMA Attending Provider Unavaila ble Allergies Allergy ClassificationReported Allergen(s)Allergy TypeDate of OnsetReaction(s) Facility (1 source)patient allergy list reviewed by nurse or physiciaPropensity to adverse hkgmqywnu04-13-2758Kaizvku:[employer] Other (1 source)Allergies ReconciledPropensity to adverse reactionsUnkSocialToaster, Inc. Other (3 sources)No Known Medication Allergies; Translations: [No Known Medication Allergies]Propensity to adverse reactions (disorder)[facility] Repository Medications Current Medications MedicationDrug Class(es)DatesSig (Normalized)Sig (Original)Accu-Chek Guide - (1 source)Accu-Chek Guide - USE TO TEST ONCE A DAY *DX E11.65* for 90 Active [id number] 200 actuat albuterol 0.09 mg/actuat metered dose inhaler (9 sources)beta2-Adrenergic AgonistStart: 15-60-5829zouz 2 puff(s) by inhalation every four to six hours as neededAlbuterol Sulfate 90 mcg/actuation HFA aerosol inhaler Active 2 PUFF INHALATION EVERY 4-6 HOURS October 02, 2023 1:00am FreeTextSi puffs as needed Inhalation every 4-6 hours; Note: Source Status: Not-Taking\PRN; Refills: 0; Qty: 1 each; Provider: Weston Hernandez Complies with drug therapyStart: 23-10-0420kkjm 2 puff(s) by inhalation every four to six hours as neededAlbuterol Sulfate HFA 108 (90 Base) MCG/ACT 2 puffs as needed Inhalation every 4-6 hours for 14 days Jun, Not-Taking/PRNStart: 59-50-8434sgvq 2 puff(s) by inhalation every four to six hours as needed Albuterol Sulfate HFA 108 (90 Base) MCG/ACT 2 puffs as needed Inhalation every 4-6 hours for 14 days Jun, Not-Takingaspirin 81 mg delayed release oral tablet (20 sources)Platelet Aggregation Inhibitor, Nonsteroidal Anti-inflammatory Drug Start: 00-28-6750vkmt 1 tablet by mouth once dailyAspirin 81 mg tablet,delayed release (DR/EC) Active 81 MG PO Daily October 02, 2023 1:00am FreeTextSig: TAKE 1 TABLET BY MOUTH EVERY DAY Oral; Note: Source Status: Taking; Refills: 0; Qty: 90 Each; Provider: EDILBERTO BENSON Complies with drug therapyatorvastatin 80 mg oral tablet (9 sources)HMG-CoA Reductase InhibitorStart: 04-22-2024 End: 50-90-3202kupahhgwekum (LIPITOR) 80 mg tablet Take 80 mg by mouth. 04/22/2024 04/22/2025 Activecarvedilol 6.25 mg oral tablet (2 sources)alpha-Adrenergic Taylor, beta-Adrenergic BlockerStart: 10-08-2024 carvedilol (Coreg) 6.25 MG tablet 6.25 mg 10/08/2024 Activeciprofloxacin 500 mg oral tablet (5 sources)Quinolone AntimicrobialStart: 22-97-5501mvjs 1 tablet by mouth every twelve hoursCiprofloxacin HCl 500 MG 1 tablet Orally every 12 hrs for 10 day(s) Jul, Activeclopidogrel 75 mg oral tablet (20 sources)P2Y12 Platelet InhibitorStart: 10-02-2023 End: 70-11-0265zkew 1 tablet by mouth once dailyClopidogrel 75 mg tablet Active 75 MG PO Daily October 02, 2023 1:00am FreeTextSi tablet Orally Once a day; Note: Source Status: Taking; Provider: Linda Flanagan ( ) Complies with drug therapyPlavix Not-Taking/PRNPlavix Not-Takingfurosemide 20 mg oral tablet (11 sources)Loop DiureticStart: 25-34-2466onhv 1 tablet by mouth once daily Furosemide 20 mg tablet Active 20 MG PO Daily October 03, 2023 1:00am Complies with drug therapyInulin / Lactobacillus rhamnosus GG (3 sources)Start: 90-84-5408Xydrltnsdl [facility] Oral, Daily, Refill(s) 0, Prophylaxis Start Date: 09/16/18 Status: Orderedlatanoprost 0.05 mg/ml ophthalmic solution (12 sources)Prostaglandin AnalogStart: 50-98-3106wxmnjmvuybx 0.005% preservative-free ophthalmic solution Eye-Right, Daily, Refill(s) 0, Ocular congestion Start Date: 09/16/18 Status: Orderedlatanoprost (Xalatan) 0.005 % ophthalmic solution 1 (one) time each day at the same time. Activetake 1 drop(s) into the eye(s) once daily at bedtimelatanoprost (XALATAN) 0.005 % ophthalmic solution Use 1 Drop in both eyes daily at bedtime. Activelisinopril 40 mg oral tablet (20 sources)Angiotensin Converting Enzyme InhibitorStart: 05-66-1518zlqv 1 tablet by mouth once daily in the morningLisinopril 40 mg tablet Active 0 .ROUTE .COMPLEX 90 3 June 09, 2024 2:13pm TAKE 1 TABLET BY MOUTH EVERY DAY IN THE MORNING Complies with drug therapyStart: 08-02-2022 End: 20-85-1357vulo 1 tablet by mouth once daily in the morningLisinopril 40 mg tablet Discontinued 1 TAB PO Every morning October 02, 2023 1:00am June 09, 2024 2:13pm FreeTextSig: TAKE 1 TABLET BY MOUTH EVERY DAY IN THE MORNING; Note: Source Status: Taking; Refills: 3; Qty: 90 Tablet; Provider: Linda Flanagan ( )Start: 71-53-1371eisc 20 mg by mouth once dailylisinopril 20 mg, Oral, Daily, Refills(s) 0, High blood pressure Start Date: 09/16/18 Status: Siafphc75 hr metoprolol succinate 100 mg extended release oral tablet (20 sources)beta-Adrenergic BlockerStart: 30-67-8671huov 1 mg by mouth once dailymetoprolol succinate 100 mg ER Tab mg tab(s), Oral, Daily, Refills(s) 0, High blood pressure Start Date: 04/16/24 Status: OrderedStart: 10-02-2023 Metoprolol Tartrate 50 mg tablet Active MG PO October 02, 2023 1:00am FreeTextSig: Oral; Note: Source Status: Taking; Qty: 180 Tablet; Provider: Linda Flanagan ( ) Complies with drug therapyStart: 10-02-2023 Metoprolol Tartrate Active MG PO October 02, 2023 1:00am FreeTextSig: Oral; Note: Source Status: Taking; Qty: 180 Tablet; Provider: Linda Flanagan ( )Start: 04-10-2023 End: 02-79-5141qbkp 1 tablet by mouth every twenty-four hours in the morning metoprolol succinate XL (Toprol-XL) 100 MG 24 hr tablet TAKE 1 TABLET BY MOUTH IN THE MORNING *DO NOT CRUSH OR CHEW* 04/10/2023 11/24/2024 Discontinued (Discontinued by another clinician)Metoprolol Tartrate 50 MG Oral for 90 Days ActiveMultiple Vitamin (multivitamin) capsule (7 sources)Multiple Vitamin (multivitamin) capsule Orally Active Emdmfuzofqbep-Tbzyysej-Vkjskr (MULTIVITAMIN 50 PLUS) tab (1 source)Onvrgbswamrht-Zxraglwc-Yfceyy (MULTIVITAMIN 50 PLUS) tab Take 1 tablet by mouth every morning. Activeomeprazole 40 mg delayed release oral capsule (20 sources)Proton Pump InhibitorStart: 03-23-2024 End: 33-38-9555jkor 1 capsule by mouth once dailyOmeprazole 40 mg capsule,delayed release(DR/EC) Active 0 .ROUTE .COMPLEX 90 3 May 03, 2025 12:23pm TAKE 1 CAPSULE BY MOUTH EVERY DAY Complies with drug therapyStart: 10-02-2023 End: 30-53-7562wyqu 1 capsule by mouth once dailyOmeprazole 40 mg capsule,delayed release(DR/EC) Discontinued 1 CAP PO Daily October 02, 2023 1:00am March 23, 2024 3:40pm FreeTextSig: TAKE 1 CAPSULE BY MOUTH EVERY DAY; Note: Source Status: Taking; Refills: 3; Qty: 90 Capsule; Provider: Linda Flanagan ( )Start: 76-90-3537yruu 40 mg by mouth once dailyomeprazole 40 mg, Oral, Daily, Refills(s) 0, Control of stomach acid Start Date: 09/16/18 Status: Orderedpolyethylene glycol 3350 10346 mg powder for oral solution (8 sources)Osmotic Laxativepolyethylene glycol, PEG, 3350 (MiraLax) 17 g packet 1 (one) time each day at the same time. Activepolyethylene glycol 3350 17 gram packet as needed. ActiveSemaglutide (2 sources)Start: 72-90-0009Ugwwliygnir (Ozempic) 0.25 mg or 0.5 mg (2 mg/3 mL) pen injector Active 0.5 MG SUBCUT every week March 31, 2025 12:00am for 4 weeks Complies with drug therapyStart: 10-59-2490Utnojnjttko (Ozempic) 0.25 mg or 0.5 mg (2 mg/3 mL) pen injector Active 0.5 MG SUBCUT every week March 31, 2025 12:00am for 4 weeks Complies with drug therapyspironolactone 25 mg oral tablet (9 sources)Aldosterone AntagonistStart: 07-45-0257cucn 1 tablet by mouth twice dailySpironolactone 25 mg tablet Active 25 MG PO Twice daily October 02, 2023 1:00am FreeTextSig: twice aday; Note: Source Status: Taking; Provider: Linda Flanagan ( ) Complies with drug therapySpironolactone 25 MG twice a day Active Completed/Discontinued Medications MedicationDrug Class(es)DatesSig (Normalized)Sig (Original)glipiZIDE 10 mg oral tablet (20 sources)SulfonylureaStart: 67-85-5865znrx 1 tablet by mouth once daily glipiZIDE (Glucotrol) 10 MG tablet Take 10 mg by mouth Daily 09/14/2024 Active Start: 75-45-7111tzzw 1 tablet by mouth onceglipiZIDE (GLUCOTROL) 10 mg tablet Take 1 tablet by mouth every afternoon. 06/17/2024 ActiveStart: 90-63-6223ucsi 1 mg by mouth once dailyglipiZIDE 10 mg ER Tab mg tab(s), Oral, Daily, Refills(s) 0, Blood glucose Start Date: 04/16/24 Status: OrderedStart: 12-31-2023 End: 19-30-4162vfjz 1 tablet by mouth once dailyGlipizide 10 mg tablet Discontinued 0 .ROUTE .COMPLEX 90 0 March 30, 2025 8:20am March 30, 2025 3:45pm TAKE 1 TABLET BY MOUTH EVERY DAYStart: 10-03-2023 End: 13-19-4752anll 1 tablet by mouth once dailyGlipizide 10 mg tablet Discontinued 10 MG PO Daily 90 0 October 03, 2023 1:00am December 31, 2023 3:39pm Start: 10-02-2023 End: 21-89-6424ofai 1 tablet by mouth once dailyGlipizide 5 mg tablet Discontinued 1 TAB PO Daily October 02, 2023 1:00am October 03, 2023 10:27pm Mainor eTextSig: TAKE 1 TABLET BY MOUTH EVERY DAY; Note: Source Status: Start; Refills: 3; Qty: 90 Tablet;Provider: Linda Flanagan ( )glipiZIDE Active1 ml methylPREDNISolone acetate 40 mg/ml injection (4 sources)CorticosteroidStart: 10-26-2024 End: 96-26-8566syfflnTBQOAVFrucjz acetate (DEPO-Medrol) injection 40 mgStart: 10-26-2024 End: 86-46-504227 mg, Intra-articular, Once PRN Procedure, Starting on Sat10/26/24 at 1112, For 1 dosepredniSONE 20 mg oral tablet (5 sources)Start: 41-82-6327mvjt 1 tablet by mouth every twelve hoursprednisone 20 MG 1 tablet Orally BID for 5 days Jun, Not-Taking/PRNtadalafil 5 mg oral tablet (20 sources)Phosphodiesterase 5 InhibitorStart: 03-23-2024 End: 55-29-5717xnxb 1 tablet by mouth once dailyTadalafil 5 mg tablet Discontinued 0 .ROUTE .COMPLEX 90 0 January 14, 2025 8:11am April 14, 2025 8:38am TAKE 1 TABLET BY MOUTH DAILYStart: 68-33-0867bnhq 1 tablet by mouth once dailyTadalafil Active 0 .ROUTE .COMPLEX 90 March 23, 2024 3:40pm TAKE 1 TABLET BY MOUTH DAILYStart: 10-02-2023 End: 78-80-5262gqqk 1 tablet by mouth once dailyTadalafil 5 mg tablet Discontinued 1 TAB PO Daily October 02, 2023 1:00am March 23, 2024 3:40pm Fr eeTextSig: TAKE ONE TABLET BY MOUTH DAILY; Note: Source Status: Taking; Refills: 3; Qty: 90 Tablet;Provider: Linda Flanagan ( )Start: 09-16-2018 Cialis 5 mg, Oral, q72hr, Refills(s) 0, Erectile dysfunction Start Date: 09/16/18 Status: Ordered Problems Active Problems Problem ClassificationProblemDateDocumented DateEpisodic/ChronicAbdominal hernia (10 sources)Umbilical hernia without obstruction or gangrene; Translations: [Ventral hernia without obstructionor gangrene]Onset: 51-08-6934Zmsvmfnl Abdominal pain (20 sources)Abdominal pain; Translations: [Unspecified abdominal pain]Onset: 34-27-0467DbvinyioBcndeefch infection; unspecified site (5 sources)Bacterial infectious disease; Translations: [Other specified bacterial agents as the cause of diseases classified elsewhere]EpisodicCalculus of urinary tract (3 sources)Kidney stone; Translations: [Calculus of kidney]Onset: 05-28-2024 EpisodicChronic obstructive pulmonary disease and bronchiectasis (6 sources)Bronchitis; Translations: [Bronchitis, not specified as acute or chronic]EpisodicCoronary atherosclerosis and other heart disease (20 sources)Coronary arteriosclerosis; Translations: [Atherosclerotic heart disease of [place] coronary artery without angina pectoris]Onset: 12-26-2021 ChronicDiabetes mellitus with complications (17 sources)Hyperglycemia due to type 2 diabetes mellitus; Translations: [Type 2 diabetes mellitus with hyperglycemia]ChronicDiabetes mellitus without complication (7 sources)Type 2 diabetes mellitus; Translations: [Type 2 diabetes mellitus without complications]Onset: 720869-31-9341LxxollqEnwwtczft of lipid metabolism (20 sources)Hyperlipidemia; Translations: [Hyperlipidemia, unspecified]Onset: 163636-40-6879YvhgboiDzitcatzztshwh and diverticulitis (18 sources)Diverticulitis; Translations: [Diverticulitis of intestine, part unspecified, without perforation or abscess without bleeding]Onset: 06-23-2013 11-16-7989PltucjqQkeyvwoxho disorders (8 sources)Gastroesophageal reflux disease without esophagitis; Translations: [Gastro-esophageal reflux disease without esophagitis]Onset: 14-10-7409Wfmxnmx Esophageal disorders (1 source)Lesion of esophagus; Translations: [Disease of esophagus, unspecified] 48-21-6793EhtlmgxnXrbmrhltp hypertension (20 sources)Essential hypertension; Translations: [Essential (primary) hypertension]Onset: 30-17-6333FpwfubxRunwwsqcunvma congenital anomalies (1 source)Multiple congenital cysts of kidney; Translations: [Congenital multiple renal cysts]Onset: 98-91-6814VhkseigHtkpugvbbeg of prostate (14 sources)Benign prostatic hypertrophy without outflow obstruction; Translations: [Hypertrophy (benign) of prostate without urinary obstruction and other lower urinary tract symptoms [LUTS]]Onset: 72-11-1195QbhcwwpTitikaiodzod with complications and secondary hypertension (2 sources)Hypertensive heart disease without heart failure; Translations: [Hypertensive heart disease withoutheart failure]Onset: 51-27-2251Veojfxw Immunizations and screening for infectious disease (6 sources)Contact with and (suspected) exposure to other viral communicable diseases; Translations: [Exposureto viral disease (event)]EpisodicNoninfectious gastroenteritis (1 source)Noninfective gastroenteritis and colitis, unspecifiedEpisodic Osteoarthritis (7 sources)Primary localized osteoarthrosis of multiple sites; Translations: [Generalized osteoarthrosis, involving multiple sites]Onset: 11-06-2013 12-41-8056TdzusxpJkvno and unspecified benign neoplasm (1 source)History of polyp of colon; Translations: [Personal history of colonic polyps]Onset: 56-98-6224AddjrlukPqvvl circulatory disease (1 source)Elevated blood-pressure reading without diagnosis of hypertension; Translations: [Elevated blood-pressure reading, without diagnosis of hypertension]EpisodicOther diseases of kidney and ureters (1 source)Cyst of kidney, acquired; Translations: [Renal cyst]Onset: 07-06-2024 EpisodicOther diseases of kidney and ureters (1 source)Cyst of kidney; Translations: [Cyst of kidney, acquired]07-06-2024 EpisodicOther lower respiratory disease (1 source)Other forms of dyspnea; Translations: [OTHER FORMS OF DYSPNEA]Onset: 32-97-3726QegdcafkCudiq lower respiratory disease (1 source)Shortness of breath; Translations: [SHORTNESS OF BREATH]Onset: 82-01-2107PftwwhljHxdiz lower respiratory disease (1 source)Dyspnea; Translations: [Other forms of dyspnea]EpisodicOther male genital disorders (8 sources)Male erectile dysfunction, unspecified; Translations: [Erectile dysfunction (disorder)]Onset: 408157-63-6179BaftkpwQaiev non-traumatic joint disorders (4 sources)Pain in left knee; Translations: [Pain in joint, lower leg]10-23-2024 EpisodicOther nutritional; endocrine; and metabolic disorders (6 sources)Body mass index 30+ - obesity; Translations: [Body mass index (BMI) 35.0-35.9, adult]Onset: 48-15-3739QuljqhbCtflv nutritional; endocrine; and metabolic disorders (2 sources)Obese class II; Translations: [Body mass index 37.0-37.9, adult] Onset: 58-53-9478WtuhfphJhnug nutritional; endocrine; and metabolic disorders (1 source)Hypercalcemia; Translations: [Hypercalcemia]Onset: 41-97-8165Csiklks Other nutritional; endocrine; and metabolic disorders (10 sources)Obesity; Translations: [Other obesity due to excess calories]Onset: 66-72-6798OkumagbHlyyt nutritional; endocrine; and metabolic disorders (4 sources)Obesity caused by energy -49-0582SjmojjcTnvuc screening for suspected conditions (not mental disorders or infectious disease) (7 sources)Echocardiogram abnormal; Translations: [Abnormal result of other cardiovascular function study]Onset: 28-79-4373UpumdivgOrisi skin disorders (1 source)Generalized hyperhidrosis; Translations: [GENERALIZED HYPERHIDROSIS] Onset: 66-45-8821ZwysivosAwuje skin disorders (1 source)Disorder of sweat gland; Translations: [Eccrine sweat disorder, unspecified]EpisodicOther upper respiratory infections (6 sources)Bacterial sinusitis; Translations: [Chronic sinusitis, unspecified] Onset: 94-18-6867MgodomeLozjpbvmyzja (1 source)Chronic coronary microvascular dysfunction; Translations: [Chronic coronary microvascular dysfunction]Onset: 07-06-2024 Past or Other Problems Problem ClassificationProblemDateDocumented DateEpisodic/ChronicAcute bronchitis (2 sources)Acute bronchitis; Translations: [Acute bronchitis]Onset: 06-28-2015 EpisodicAdministrative/social admission (1 source)Family problems; Translations: [Unspecified family circumstance]Onset: 93-18-3337PhitkvxzOgkutlpc atherosclerosis and other heart disease (1 source)Presence of aortocoronary bypass graft; Translations: [PRESENCE AORTOCORONARY BYPASS GRAFT]Onset: 96-15-7029ZrgnhvmgZdlqfsuc mellitus without complication (1 source)Abnormal glucose level; Translations: [Other abnormal glucose]Onset: 93-00-1094QdbfjlorBqonjpx and fatigue (2 sources)Other fatigue; Translations: [Malaise and fatigue]Onset: 03-14-2017 EpisodicOther gastrointestinal disorders (1 source)Diarrhea; Translations: [Diarrhea]Onset: 96-39-4236DxaehrphMmtzd injuries and conditions due to external causes (1 source)Injury of male external genital organs; Translations: [Other specified disorder of male genital organs]Onset: 67-56-7691BusizftyZmbts lower respiratory disease (12 sources)Dyspnea on exertion; Translations: [Other forms of dyspnea]Onset: 517095-10-9119UurjzpwwCojmx non-traumatic joint disorders (1 source)Joint pain; Translations: [Pain in unspecified joint]Onset: 08-15-2016 EpisodicOther upper respiratory infections (4 sources)Acute upper respiratory infection, unspecified; Translations: [Acute pharyngitis, unspecified]Onset: 58-95-4705LhvvysmuGojeofkj codes; unclassified (1 source)C/O - a back symptom; Translations: [Other symptoms referable to back] Onset: 70-75-1250RhbqakfxIvbwrghhfckg (2 sources)Cough, unspecified type R05.9Onset: 02-28-2022 Resolved: 70-75-2822Cgthd infection (6 sources)COVID-19; Translations: [Disease caused by 2019-nCoV]Onset: 02-28-2022 Resolved: 02-28-2022 Results Test NameValueInterpretationReference RangeFacilityActivated partial thromboplastin time (aPTT) in platelet poor plasma by coagulation aOrdered By: Jenniffer Espinal on 51-26-5460kGNB Coag (PPP) [Time]25.6 s22.3-36.2FOhio Valley Surgical HospitalBasophils Auto (Bld) [#/Vol]Ordered By: Jenniffer Espinal on 05-15-2025 Basophils (Bld) [#/Vol]0.0 10 3/uL0.0-0.1FOhio Valley Surgical Hospital Basophils/100 WBC Auto (Bld)Ordered By: Jenniffer Espinal on 59-57-9117Bwlidhofj/100 WBC (Bld)0.5 %0.2-2.0[facility] CenterEosinophils/100 WBC Auto (Bld)Ordered By: Jenniffer Espinal on 57-77-1639Cbpllhahzoc/100 WBC (Bld)2.9 %0.9-7.0 [facility] CenterErythrocyte distribution width Auto (RBC) [Ratio]Ordered By: Jenniffer Espinal on 09-91-1027Butwzlcnkrw distribution width (RBC) [Ratio]12.3 %11.0-15.0[facility] CenterGlobulin Calc (S) [Mass/Vol]Ordered By: Jenniffer Espinal on 30-64-4118Tlcywqye (S) [Mass/Vol]3.2 g/dL [facility] CenterGlomerular filtration rate (GFR) estimation in non- AmericanOrdered By: Jenniffer Espinal on 61-57-8972NBE/1.73 sq M.predicted among non-blacks MDRD (S/P/Bld) [Vol rate/Area]38 mL/min/{1.73_m2}Low>=60 mL/min/1.73m 2FOhio Valley Surgical HospitalHematocrit Auto (Bld) [Volume fraction]Ordered By: Jenniffer Espinal on 00-31-8660Tkcffnngwy (Bld) [Volume fraction] 41.6 %Low42.0-54.0[facility] CenterHemoglobin [Mass/volume] in BloodOrdered By: Jenniffer Espinal on 63-73-2441Zsppjbebov (Bld) [Mass/Vol]15.1 g/dL 14.0-18.0[facility] CenterINR in Platelet poor plasma by Coagulation assayOrdered By: Jenniffer Espinal on 11-48-9205MJL Coag (PPP) [Relative time]1.02 {INR}[facility] CenterComment on above:DESIRED INR:2.0-3.0 CONDITIONS NOT LISTED BELOW2.5-3.5 FOR PROSTHETIC HEART VALVE REPLACEMENT2.5-3.5 RECURRENT THROMBOSISLaboratory - Chemistry and Chemistry - challengeOrdered By: Jenniffer Espinal on 02-73-6204Pzcdbxq [Mass/Vol]4.3 g/dL3.4-5.0 [facility] CenterALP [Catalytic activity/Vol]72 U/L46-116 [facility] CenterALT [Catalytic activity/Vol]53 U/L16-63 [facility] CenterAST [Catalytic activity/Vol]36 U/L15-37 [facility] CenterBilirubin [Mass/Vol]0.6 mg/dL0.2-1.0[facility] CenterCalcium [Mass/Vol]9.8 mg/dL8.5-10.1FOhio Valley Surgical HospitalChloride [Moles/Vol]99 mmol/O63-290QevlzayilCommunity Regional Medical CenterCO2 [Moles/Vol]24.2 mmol/L21.0-32.0[facility] Creatinine [Mass/Vol]1.76 mg/dLHigh0.70-1.30[facility] GFR/1.73 sq M.predicted MDRD (S/P/Bld) [Vol rate/Area]47 mL/min/{1.73_m2}Low>=60 mL/min/1.73m 2FOhio Valley Surgical HospitalGlucose [Mass/Vol]127 mg/dLHigh 74-106[facility] CenterNatriuretic peptide B (Bld) [Mass/Vol] 85.0 pg/mL<=900.0[facility] CenterPotassium [Moles/Vol]4.2 mmol/L3.5-5.1FOhio Valley Surgical HospitalProtein [Mass/Vol]7.5 g/dL6.4-8.2 [facility] Hospitalodium [Moles/Vol]135 mmol/TWwa229-850PociwoqioCommunity Regional Medical CenterUrea nitrogen [Mass/Vol]13.0 mg/dL7.0-18.0[facility] CenterUrea nitrogen/Creatinine [Mass ratio]7.4 mg/mgCommunity Regional Medical CenterLaboratory - Hematology and Cell countsOrdered By: Jenniffer Espinal on 43-81-7577Vsrjlqlj granulocytes/100 WBC (Bld)0.2 %0.0-0.5FOhio Valley Surgical HospitalLeukocytes [#/volume] corrected for nucleated erythrocytes in Blood by Automated counOrdered By: Jenniffer Espinal on 98-84-4347LNQ corrected for nucl RBC Auto (Bld) [#/Vol]8.5 10 3/uL4.0-11.0[facility] CenterLymphocytes Auto (Bld) [#/Vol]Ordered By: Jenniffer Espinal on 05-15-2025 Lymphocytes (Bld) [#/Vol]1.8 10 3/uL1.2-3.8[facility] Lymphocytes/100 WBC Auto (Bld)Ordered By: Jenniffer Espinal on 70-60-8029Nkasffcfaiv/100 WBC (Bld)20.9 %20.5-60.0[facility] Auto (RBC) [Entitic mass]Ordered By: Jenniffer Espinal on 37-02-0099JIM (RBC) [Entitic mass]31.0 pg 25.9-34.0[facility] CenterMCHC Auto (RBC) [Mass/Vol]Ordered By: Jenniffer Espinal on 13-63-5291CMUL (RBC) [Mass/Vol]36.3 g/nMKgny47.9-35.2FOhio Valley Surgical HospitalMCV Auto (RBC) [Entitic vol]Ordered By: Jenniffer Espinal on 47-19-8910EVX (RBC) [Entitic vol]85.4 fL80.0-94.0[facility] CenterMonocytes Auto (Bld) [#/Vol]Ordered By: Jenniffer Espinal on 73-06-9318Bpygvgtzi (Bld) [#/Vol]1.0 10 3/uLHigh0.3-0.8[facility] Monocytes/100 WBC Auto (Bld)Ordered By: Jenniffer Espinal on 83-56-5582Bsdnvtqtk/100 WBC (Bld)11.3 %1.7-12.0[facility] CenterNeutrophils Auto (Bld) [#/Vol]Ordered By: Jenniffer Espinal on 54-50-8605Xhxaghnmfoe (Bld) [#/Vol]5.5 10 3/uL 1.4-6.5FOhio Valley Surgical HospitalNeutrophils/100 WBC Auto (Bld)Ordered By: Jenniffer Espinal on 82-66-9150Lkucjyowsud/100 WBC (Bld)64.2 %43.0-75.0[facility] CenterNo Panel InformationOrdered By: Jeninffer Espinal on 05-15-2025 Eosinophils # (Auto)0.3 10 3/uL0.0-0.7FOhio Valley Surgical HospitalImmature Granulocyte # (Auto)0.02 10 3/uL0.00-0.03[facility] Troponin I High Sensitivity6.7 pg/mL4.0-76.1FOhio Valley Surgical Hospital Comment on above:CUT-OFF POINTS HAVE BEEN ESTABLISHED BASED ON THE FOURTHUNIVERSAL DEFINITION OF MYOCARDIAL INFARCTION. THE UPPERREFERENCE LIMIT (URL) OF TROPONIN, DEFINED THE 99THPERCENTILE OF cTnI DISTRIBUTION IN A REFERENCE POPULATION,HAS BEEN CONFIRMED THE DECISION THRESHOLD FOR MIDIAGNOSIS.99TH PERCENTILE = 76.2 PG/MLNOTE: HIGH-SENSITIVITY TROPONIN ASSAY IS NOT INTENDED TO BEUSED IN ISOLATION BUT SHOULD BE INTERPRETED IN CONJUNCTIONWITH OTHER DIAGNOSTIC AND CLINICAL INFORMATION.Platelet mean volume Auto (Bld) [Entitic vol]Ordered By: Jenniffer Espinal on 39-21-0735Edlriiwf mean volume (Bld) [Entitic vol]9.9 fL9.5-13.5FOhio Valley Surgical HospitalPlatelets Auto (Bld) [#/Vol]Ordered By: Jenniffer Espinal on 05-21-3274Upjvfylro (Bld) [#/Vol]230 10 3/wA371-357NzlzlwtzrCommunity Regional Medical CenterProthrombin time (PT)Ordered By: Jenniffer Espinal on 24-75-8549IT Coag (PPP) [Time]10.8 s9.0-11.6FOhio Valley Surgical HospitalRBC Auto (Bld) [#/Vol]Ordered By: Jenniffer Espinal on 13-49-3283COV (Bld) [#/Vol]4.87 10 6/uL4.70-6.10Cherrington Hospitalerum or plasma albumin/globulin mass ratioOrdered By: Jenniffer Espinal on 95-35-1167Ksybiwv/Globulin [Mass ratio]1.3 {ratio}Cherrington Hospitalerum or plasma anion gap determinationOrdered By: Jenniffer Espinal on 27-24-6596Swzuq gap [Moles/Vol]16.0 mmol/LFOhio Valley Surgical HospitalHbA1c HPLC (Bld) [Mass fraction]Ordered By: Jacob Mckeon on 03-22-9817TfZ3r (Bld) [Mass fraction]7.6 %Community Regional Medical CenterCholesterol in LDL Calc [Mass/Vol]Ordered By: Marcelino Stern on 48-38-0759Aerqkmmxfcz in LDL [Mass/Vol]58.0 mg/dLCommunity Regional Medical CenterComment on above:<100 mg/dl PZCRRYE934-278 mg/dl NEAR OR ABOVE WTWWMOP052- 159 mg/dl BORDERLINE SNJF046-123 mg/dl HIGH>190 mg/dl VERY HIGHCholesterol in VLDL Calc [Mass/Vol]Ordered By: Marcelino Stern on 04-00-8840Qtfyowetehp in VLDL [Mass/Vol]13.0 mg/dLCommunity Regional Medical CenterLaboratory - Chemistry and Chemistry - challengeOrdered By: Marcelino Stern on 28-94-8447Rlyqqqnuecz [Mass/Vol]115 mg/dL<=200Community [facility] Medical CenterCholesterol in HDL [Mass/Vol]44 mg/cE41-07PxgmpocgoCommunity Regional Medical CenterComment on above:> or =60 mg/dl - LOW CARDIOVASCULAR RISK<40 mg/dl - HIGH CARDIOVASCULAR RISK Triglyceride [Mass/Vol]65 mg/dL<=150Community [facility] Medical CenterOffice Visiton 07-91-2180Aggcgh-up [id number] Oswald Ochoa 1955 M Date Provider Department Center 01/28/2025 271-KATIA MCDANIEL [facility] Family History Problem Relation Age of Onset COPD Mother Childhood respiratory disease Father Family Status - Relation Status Age at Mother Father Level of Service:45242 MT OFFICE/OUTPATIENT ESTABLISHED LOW MDM [address] [facility] Warren Hospitalerum or plasma total cholesterol/high density lipoprotein (HDL) cholesterol mass ratOrdered By: Marcelino Stern on 19-23-0820Fsesjkikxzn.total/Cholesterol in HDL [Mass ratio]2.6 {ratio}[facility] Regional Medical CenterComment on above:3.3 - 4.4 LOW RISK4.4 - 7.1 AVERAGE RISK7.1 - 11.0 MODERATE RISK>11.0 HIGH RISKAmbulatory Visit Summaryon 11-20-2024 Ambulatory Visit SummaryAmbulatory Visit Summary OSWALD OCHOA :1955 Visit Date:11/20/2024 [...] ISRAEL RUFFIN, Shade Robison, URL When: Where: [address] [place] [address]- Medications What How Much When Instructions Unchanged [...] including vitamins, herbs, eye drops, creams, and ppjg-odt-dblypdp medicines. ??? Any problems you or family [...] okay except energy drin (more content not included)...Normal [facility] CenterAmbulatory Visit SummaryAmbulatory Visit Summary OSWALD OCHOA :1955 Visit Date:11/20/2024 [...] with ISRAEL RUFFIN, JYOTI Sauceda When: Where: [address] [place], [place] [id number]- Medications What How Much When Instructions Unchanged [...] including vitamins, herbs, eye drops, creams, and ovmc-hfw-stczugi medicines. ??? Any problems you or family [...] okay except energy drin (more content not included)...Normal [facility] CampusUrology Office/Clinic Noteon 11-33-5839Wwycxfb Office/Clinic NoteUrology Office/Clinic Note Chief Complaint F/u with PSA, [...] high intake of water. Encouraged pt to limitfluids 2 hrs prior to bedtime to improve nocturia. Overall not bothered by urination. 3. 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 Largest measures 3.9 x 3.1 cm. ANAMARIA 10/01/24 [facility] - cysts not mentioned. Further w/up not indicated. 4. Antiplatelet or antithrombotic long-term use (Z79.02: terminologist (current) use of antithrombotics/antiplatelets) On Plavix. CABG x 5. Hx of open heart surgery. Elevated risk for perio complications, Plavix and asa will need held prior to ESWL. cardiology will need to be involved with this. Follow-up With When Contact Information ISRAEL RUFFIN, Shade Robison, URL [address] [place], [place] [id number]- Additional Instructions: Schedule L ESWL Patient Education [...] EGD - esophagogastroduodenoscopy (05/01/2024), Colonosc (more content notincluded)...Magruder HospitalComment on above:Result Comment: Electronically Signed By: Shade WOOD MD\.br\Date and Time Signed: 11/20/24 11:18 EDT\.br\Electronically Co-Signed By: Brandy Stearns.br\Date and Time Co-Signed: 11/20/2510:15 EDTNo Panel Informationon 60-57-0358Lunll T Olsen, CHINESE HERBALIST 10/26/2024 11:14 AM L Inj/Asp: L knee on 10/26/2024 11:12 AM Indications: pain Details: 21 G needle, anterolateral approach Medications: 40 mg methylPREDNISolone acetate 40 MG/ML Outcome: tolerated well, no immediate complications Site was cleaned with isopropyl alcohol Procedure, treatment alternatives, risks and benefits explained, specific risks discussed. Consent was given by the patient. 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 [facility] would like [facility] Order faxed to [facility]. Will monitor All results in chart for review.[facility]37on 10-08-2024 37*We will switch metoprolol to carvedilol.[facility] HospitalOffice Visiton 86-29-9771Cqhezr-up [id number] Oswald Ochoa 1955 Date Provider Department Center 10/08/2024 MARCELINO MURRAYue Hos No family history on file Level of Service:23375 MT OFFICE/OUTPATIENT ESTABLISHED MOD MDM 30 MIN Reason for Visit and Comments: Coronary Artery Disease [187]NormalMain Campus Medical CenterCNOVon 81-77-9933SUXKXlaabo Visit (GASTNO) OSWALD OCHOA ([id number]) 1955 M Date Time Provider Department 07/06/24 [...] MORNING *DO NOT CRUSH OR CHEW* - Zkxineapfdivh-Zsmfzdmi-Lspomj (MULTIVITAMIN 50 PLUS) tab; Take 1 tablet by mouth every morning. - omeprazole (PRILOSEC) 40 mg capsule; Take 40 mg by mouth once daily. - polyethylene glycol (more content not included)...NormalRiverview Health InstituteTORY PHYSICALon 71-18-9434MQCCODZ PHYSICALHNO ID: [id number] Author: JUSTUS BRAXTON MD Service: ? Author [...] MORNING *DO NOT CRUSH OR CHEW* - Oaqhimqhwsmes-Oyynpfmo-Ohsybg (MULTIVITAMIN 50 PLUS) tab; Take 1 tablet [...] artery disease status pos (more content not included)...[facility] Ambulatory Visit Summaryon 65-01-9839Nfvyumraeb Visit SummaryAmbulatory Visit Summary OSWALD OCHOA :1955 Visit Date:05/28/2024 [...] RUFFIN, Shade Robison Where: [facility] [address] [phone]- Medications What How Much When Instructions Unchanged [...] you for choosing us for your care. [facility] HospitalAmbulatory Visit Summary Ambulatory Visit Summary OSWALD OCHOA [...] RUFFIN, Shade Robison Where: [facility] [address] Medications What How Much When Instructions [...] you for choosing us for your care. [facility] 56-86-0624AOJBCuxyeasdh (GASTNO) OSWALD OCHOA ([id number]) 1955 M Date Time Provider Department 05/27/24 [...] OV with Dr. Braxton on 07/06/24 at [facility] at 3:30 pm per message below. Allergies As of Date: 05/27/2024 (Not on File) Date Reviewed: Never Reviewed Reason for Visit: Appointment [186] Problem List As Of Date: 05/27/2024 (None) Encounter Status:Closed by ANGEL RODRIGUEZ on 05/29/24[facility] Chest w/ Contraston 43-01-7480MC Chest w/ ContrastExam Date/Time: 05/21/2024 11:12 EDT Reason for Exam: [...] Armaan Manzano MD Transcribed by: DP Technologist: DPR Technical Comments GFR (mL/min/1/73m2) >60 Contrast: Isovue 300 Contrast amount in ml's: 100NormalFisher Lea Medical CenterCHEMISTRYOrdered By: SYSTEM SYSTEM on 48-64-5419Kubjrgunzv [Mass/Vol]0.9 mg/dLNormal0.5 - 1.3 mg/dLRemisol RsiqgMTL54 mL/min/1.73 m1Awwmyf>=59mL/min/1.73 t6Ytmmtjs Chem Creatinineon 94-88-5094Jhdovkuwqb [Mass/Vol]0.9 mg/dLNormal0.5-1.3Fisher [facility] CampusComment on above:Performed By: #### [id number] #### [facility] [address], [place] [address]bVJVxu 35-46-0911oRPW16 mL/min/1.73 g4Mvpzyd>=59Fisher [facility] CampusComment on above:Performed By: #### [id number] #### [facility] [address], [place] [address]Scbhroclbly 42-82-9683OaqsvwfmlAyzesbjow From: Elizabeth Rangel To: [facility] - Reminders/Recalls; Sent: 05/08/2024 13:47:56 EDT Show up: 04/01/2029 13:47:00 EDT Subject: Ambulatory Reminder- colonoscopy 5 year recall Due Date/Time: 05/01/2029 13:47:00 EDT Reminder/Recall Colonoscopy Dr Mooney- 05/01/2024 5 year recallNoUniversity Hospitals Lake West Medical CenterResult Letter Officeon 05-08-2024 Result Letter OfficeResult Letter Office May 08, 2024 OSWALD Mcc[address]nell[address] [place] [address] : 1955 Below is a summary of the results of your recent colonoscopy. COLONOSCOPY WITH POLYP REMOVAL OR BIOPSY Type of polyp tubular adenoma - not cancer but can become cancer if not removed. Additional colonoscopies will benecessary to monitor your condition and assure that new polyps have not developed. Based on your results we are recommending you repeat the procedure in 5 years You will be placed in our reminder system and will receive a reminder letter prior to your next duedate. [place] [facility] [phone] Memorial Hospitalurgical Pathology Reporton 49-71-1181Vphsnuss Pathology ReportFish - [facility] [address] [place] [address]- Surgical Pathology Report Collected Date/Time: 05/01/2024 09:47 [...] is entirely submitted in one cassette. (DC) DC:[facility] Surgical Pathology Report Collected Date/Time: [...] characteristics were determined by the Laboratory [facility]. They have not been cleared or approved by the US Food and Drug Administration. The FDA has determined that such clearance or approval is not necessary. These tests are used for clinical purposes. They should not be regarded as investigational or for research. Appropriate positive and negative controls are performed and are acceptable. [facility]ruder HospitalComment on above:Performed By: #### [id number] #### [facility] [address], [place] [address]Xzic OR Intraoperative Recordon 21-39-3315Gnzp OR Intraoperative RecordMain OR Intraoperative Record IntraOp Document Type FT Summary Primary Physician: Alissa Mooney MD Finalized Date/Time: 05/05/24 08:07:07 Pt. Name: OSWALD OCHOA/Sex: 1955 Male Med Rec #: [id number] Physician: Alissa Mooney MD Financial #: [id number] Pt. Type: O Room/Bed: / Admit/Disch: 05/01/24 [...] Anne RN, Joyce Sanchez Role Performed Anesthesiologist Employee Benefits Specialist - Primary Staff - Other Body Make Up Artist Time In 05/01/24 09:39:00 05/01/24 09:39:00 05/01/24 [...] AND COLONOSCOPY(.) Comments Last Modified By: Dayana BLANCA, Hamilton Anne RN, Hamilton Nevarez RN 05/01/24 [...] 05/01/24 09:43:05 Post-Care Samuel (more content not included)...[facility] Provider Letteron 10-75-8162Ogthmtzg LetterProvider Letter May 05, 2024 OSWALD COHOA [address] [place] [address] : 1955 Dear Oswald, We have been trying to reach you with no success. It is important that you return our call regarding further orders upon receiving this letter. Also, at the time of your call, please provide us with your current information. Thank you for your prompt attention to this matter. Sincerely, [facility] HospitalNoUniversity Hospitals Lake West Medical CenterDischarge Instructionson 03-91-6580Kodqnquys InstructionsDischarge Instructions OSWALD OCHOA :1955 Visit Date:05/01/2024 Inpatient [...] 10 mg ER Tab) lactobacillus rhamnosus GG ([facility]) latanoprost ophthalmic (latanoprost 0.005% preservative-free ophthalmic solution) [...] Follow Up with Vinicio RUFFIN, PRIYANKA Kuhn, [facility] When: Comments: Office will call Date and Time of Follow-up Appt. Where: [address] [place], [place] [address]dict Vanessa, [address] [place] [phone] Medications What How Much When Instructions Next Dose Unchanged aspirin (aspirin 81 mg Oral EC Tab) By Mouth Every day Unchanged clopidogrel (Plavix 75 mg Tab) By Mouth Every day Unchanged furosemide (Lasix 20 mg Tab) By Mouth Every day Unchanged glipiZIDE (glipiZIDE 10 mg ER Tab) By Mouth Every day Unchanged lactobacillus rhamnosus GG ([facility]iv [facility]) By Mouth Every day Unchanged latanoprost ophthalmic [...] unsweetened, w/added ascorbic acid 1 cup 0.5 [place] 1 cup 0.7 Vegetables Cooked Green beans 1 cup 4.0 Carrots 1/2 cup sliced (more content not included)...[facility] Comment on above:Result Comment: Electronically Signed By: Heber BLANCA, Tova\.br\Date and Time Signed: 05/01/24 10:17EDTH&P Updateon 05-01-2024H&P UpdateH&P Update Patient: OSWALD OCHOA Age: 69 years [...] Plan Diagnosis: GERD and polyps -EGD and colonoscopyMagruder HospitalMain OR PACU II Recordon 03-12-1188Hhzf OR PACU II RecordMain OR PACU II Record PACU Phase II Document Type FT Summary Primary Physician: Alissa Mooney MD Finalized Date/Time: 05/01/24 13:09:40 Pt. Name: OSWALD OCHOA Peter/Sex: 1955 Male Med Rec #: [id number] Physician: Alissa Mooney MD Financial #: [id number] Pt. Type: O Room/Bed: / Admit/Disch: 05/01/24 [...] and monitors body temperature Evaluates postoperative respiratory statusEvaluates postoperative cardiac status Evaluates postoperative neurological status [...] individualized perioperative plan of care The patient's rightto privacy is maintained The patient's value system, [...] with or improved from baseline levels established preoperativelyThe patient's cardiovascular status is consistent with or improved from baseline levels established preoperatively The patient's neurological status is consistent with or improved from baseline levels established preoperatively The patient demonstrates and/or reports adequate pain control throughout the perioperative period The patient received appropriate medication(s), safely administered during the perioperativeperiod Finalized By: Tova Buck RN Document Signatures Signed By: Tova Buck RN 05/01/24 13:04 Tova Buck RN 05/01/24 13:09Magruder HospitalMain OR Preoperative Recordon 03-86-1003Jfko OR Preoperative RecordMain OR Preoperative Record Holding Area Document Type FT Summary Primary Physician: Alissa Mooney MD Finalized Date/Time: 05/01/24 08:37:09 Pt. Name: JEFFERYOSWALD/Sex: 1955 Male Med Rec #: [id number] Physician: Alissa Mooney MD Financial #: [id number] Pt. Type: O Room/Bed: / Admit/Disch: 05/01/24 [...] or her perioperative plan of care The patient'sright to privacy is maintained Surgery Checklist FT [...] Signatures Signed By: Makayla Yi RN 05/01/24 08:37NoUniversity Hospitals Lake West Medical CenterOperative Reporton [id number] ReportOperative Report Patient: OSWALD OCHOA Age: 69 years Sex: Male : 1955 Associated Diagnoses: None Author: Alissa Mooney MD Pre-Procedure Procedure Date 05/01/2024 10:06:00 . Procedure Type: Colonoscopy with removal of tumor(s), polyp(s), or other lesion(s) by cold snare technique. Procedure provider Performed by Alissa Mooney MD. Current history and physical Documented on chart. Colonoscopy ([id number]).. Past Medical History No active or resolved past medical history items have been selected or recorded.. Family History Heart disease Father . Procedure History Colonoscopy ([id number]).. Colorectal neoplasm risk assessment High risk Previous [...] the left lateral decubitus position. Endoscope type usedwas an adult-size. The endoscope was lubricated then introduced through the anus. The scope was advanced to the terminal ileum. No difficulties encountered during the procedure. The bowel preparationquality was good and was adequate (see polyps greater than or equal to 6 millimeters). The patient tolerated the procedure well. Time to Cecum: 1 min Withdrawal time 8 min Last colonoscopy: 2019 Findings 1. Normal rectal exam 2. Five mm sessile polyp seen in the descending colon resected with cold snare completely 3. Diverticulosis throughout the whole colon 4. Pzzj-it-knpj surgical anastomosis in the sigmoid colon 5. Internal hemorrhoids 6. Normal terminal ileum Images Procedure images: Rec1_hd_video_2023__T09_03_28_216.jpg Rec1_hd_video_4__T09__03_345.jpg Rec1_hd_video_4__T09_04_12_293.jpg Rec1_hd_video_4__T09_07_05_495.jpg Rec1_hd_video_4_10_04T09_07_55_123.jpg Rec1_hd_video_4__T09_08_11_417.jpg Rec1_hd_video_4__T09_10_06_002.jpg Rec1_hd_video_4__04T09_10_18_585.jpg Rec1_hd_video_4__T09_10_40_884.jpg Rec1_hd_video_4__04T09_11_25_590.jpg . Post-Procedure Complications: none. Estimated blood loss: [...] 24 hours. Education and Follow-up: Counseled: Patient, Family.[facility]ruder HospitalComment on above:Result Comment: Electronically Signed By: Vinicio RUFFIN, Alissa Phillipsbr\Date and Time Signed: 05/01/2410:08 EDTOther Comment: Missing Attachment - attachment storage system not supported [id number] Can be viewed in source system Missing Attachment - attachment storage system not supported [id number] Can be viewed in source systemMissing Attachment - attachment storage system not supported [id number] Can be viewed in source systemMissing Attachment - attachment storage system not supported [id number] Can be viewed in source systemMissing Attachment - attachment storage system not supported [id number] Can be viewed in source systemMissing Attachment - attachment storage system not supported [id number] Can be viewed in source systemMissing Attachment - attachment storage system not supported [id number] Can be viewed in source systemMissing Attachment - attachment storage system not supported [id number] Can be viewed in source system Missing Attachment - attachment storage system not supported [id number] Can be viewed in source systemMissing Attachment - attachment storage system not supported 1389201 Can be viewed in source systemOperative ReportOperative Report Patient: OSWALD OCHOA Age: 69 years [...] safety measures. Endoscope type used was an adult- size, introduced orally, advanced to the 2nd portion [...] pylori. 3. Normal duodenum. Images Procedure images: Rec_hd_video_2023__08_57_34_985.jpg Rec_hd_video__08_57_42_599.jpg Rec_hd_video_2023__08_58_09_674.jpg Rec1_hd_video_2023__04T08_59_13_679.jpg Rec1_hd_video_2023__T09_00_15_135.jpg Rec1_hd_video_2023__04T09_00_33_589.jpg . Post-Procedure Complications: none. Estimated blood loss: minimal. Specimens: sent to pathology. Devices/ implants: none left in place. 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 Hiatal hernia Gastropathy Recommendations: -Resume previous diet -Resume home medications -Await pathology results, follow in GI clinic in 1-2 after dischargeMagruder HospitalComment on above:Result Comment: Electronically Signed By: Vinicio RUFFIN, Alissa Nunez\.br\Date and Time Signed: 05/01/2410:06 EDTOther Comment: Missing Attachment - attachment storage system not supported [id number] Can be viewed in source system Missing Attachment - attachment storage system not supported [id number] Can be viewed in source systemMissing Attachment - attachment storage system not supported [id number] Can be viewed in source systemMissing Attachment - attachment storage system not supported 0890259 Can be viewed in source systemMissing Attachment - attachment storage system not supported [id number] Can be viewed in source systemMissing Attachment - attachment storage system not supported [id number] Can be viewed in source systemOffice Visiton 22-75-4362Rghiau-up visit [id number] Oswald Ochoa 1955 M Date Provider Department Center 04/27/2024 3848-ALISSA GALINDO CARD [facility] No family history on file Level of Service:07265 MT OFFICE/OUTPATIENT ESTABLISHED LOW MDM 20 [facility] HospitalAmbulatory Visit Summaryon 04-16-2024 Ambulatory Visit SummaryAmbulatory Visit Summary OWSALD OCHOA :1955 Visit Date:04/16/2024 Ambulatory Visit Instructions [...] 10 mg ER Tab) lactobacillus rhamnosus GG ([facility]) latanoprost ophthalmic (latanoprost 0.005% preservative-free [...] questions or concerns Unchanged lactobacillus rhamnosus GG ([facility]) By Mouth Every day Contact prescribing physician [...] you for choosing us for your care. GiuseppeFormerly [facility], Nhrm[facility] Orthopedic Hospitalnora [facility] CampusGastroenterology Office/Clinic Noteon 18-71-2029Ypooscxfykyscamj Office/Clinic NoteGastroenterology Office/Clinic Note Chief Complaint Colonoscopy HPI Staff [...] Oral, Daily Cialis, 5 mg, Oral, q72hr Culturee Digestive Health, Oral, Daily glipiZIDE 10 mg [...] 05/15/2017 Recorded influenza virus vaccine, inactivated 05/04/2016 [facility] SouthComment on above:Result Comment: Electronically Signed By: Vinicio RUFFIN, Alissa Nunez\.br\Date and Time Signed: 04/16/2410:43 EDTPROF CHEM 8 (BAS METB) on 99-15-3464Plbfl gap [Moles/Vol]16.3 mmol/LNormalThe [facility] Medical CenterComment on above:Performed By: #### BMP ####[facility] [address] [place], [place] [address]YnVirgil ChangCalcium [Mass/Vol]9.4 mg/dLNormal 8.5-10.1The [facility] Medical CenterComment on above:Performed By: #### BMP ####[facility] [address] [address]Dr. Yilan ChangChloride [Moles/Vol]98 mmol/DDbieku35-978Hee [facility] Medical CenterComment on above:Performed By: #### BMP ####[facility] [address] [place], [place] [address]Dr.Yilan ChangCO2 [Moles/Vol]26.0 mmol/LNormal 21.0-32.0The [facility]al Medical CenterComment on above:Performed By: #### BMP ####[facility] [address] [place], [place] [address]Dr. Yilan ChangCreatinine [Mass/Vol]1.36 mg/dLCritically high0.70-1.30The [facility]al Medical CenterComselect specialty hospital-[facility]inte on above:Performed By: #### BMP ####[facility] Ex[address] [place], [place] [address]Dr.Yilan ChangEGFR-AF CYMRAES>60Normal>=60The [facility] Behavioral Medical CenterComselect specialty hospital-g[facility] pointe on above:Performed By: #### BMP ####[facility] Qpebe[address]eg[address] [place], [place] [address]Dr. Yilan ChangEGFR-NON AF PYYSRFVF73 mL/min/1.49c9Zjuxsxcowk low>=60The [facility] on above:Performed By: #### BMP ####[facility] [address]cl[address] [place], [place] [address]Dr.Yilan ChangGlucose [Mass/Vol]211 mg/dLCritically rvoc33-350Npj [facility] on above: Performed By: #### BMP ####[facility] Fe[address]yrxbebm[address] [place], [place] [address]Dr.Yilan ChangPotassium [Moles/Vol]4.3 mmol/LNormal 3.5-5.1The [facility] CenterComselect [facility] hospital-[facility] on above:Performed By: #### BMP ####[facility] Pcd[address] [place], [place] [address]Dr.Yilan Mayes Sodium [Moles/Vol]136 mmol/LQaeuiy869-286Rhn [facility] CenterComment on above: Performed By: #### BMP ####[facility] [address] [place], [place] [address]Dm.Mely ChangUrea nitrogen [Mass/Vol]10.0 mg/dLNormal 7.0-18.0The [facility] Medical CenterComment on above:Performed By: #### BMP ####[facility] [address] [place], [place] [address]Is. Mely ChangUrea nitrogen/Creatinine [Mass ratio]7.4 mg/mgNormalThe [facility] CenterComment on above:Performed By: #### BMP ####[facility] [address]if[address]ksf[address] [place], [place] [address]Ii.Yilan ChangECHOCARDIO M/2D COMPLETEon 18-01-4688FSEETXHQIL M/2D COMPLETEPatient: OSWALD OCHOA Exam Date: 11/20/2022 : 1955 Gender:M Ordering : [facility] Admission #: [id number] Family : Order #: [id number] CLICK HERE TO VIEW EXAM ECHOCARDIOGRAM REPORT [...] by: Katia Mcdaniel M.D. on 11/21/2022 at 08:25[facility] STRESS/REST MULTIon 14-70-2932SK STRESS/REST MULTIPatient: OSWALD OCHOA Exam Date: 11/20/2022 : 1955 Gender:M Ordering : [facility] Admission #: [id number] Family : Order #: [id number] CLICK HERE TO VIEW EXAM RADIOLOGY REPORT [...] by: Chris Vital M.D. on 11/22/2022 at 16:12[facility] HospitalBNPon 93-59-1747Ckdlteaafvk peptide B (Bld) [Mass/Vol]207.0 pg/mLNormal <=900.0The [facility] CenterComment on above:Performed By: #### LIPID, BNP, CMP #### [facility] [address] [place] [address] Dr. Mely Cramer PROFILEon 01-70-1845QFJE-HDL RATIO NORMSEE BELOWGreene Memorial HospitalComment on above:Result Comment: 3.3 - 4.4 LOW RISK 4.4 - 7.1 AVERAGE RISK 7.1 - 11.0 MODERATE RISK >11.0 HIGH RISKPerformed By: #### LIPID, BNP, CMP #### [facility] [address] [place] [address] Dr. Mely Ceeesterol [Mass/Vol]166 mg/dLNormal<=200The [facility] Comment on above:Performed By: #### LIPID, BNP, CMP #### [facility] [address] [place] [address] Dr. Mely Ceeesterol in HDL [Mass/Vol]38 mg/dLCritically bdt58-94Jtk [facility] CenterComment on above:Performed By: #### LIPID, BNP, CMP #### [facility] [address] [place] [address] Dr. Mely Ceeesterol in LDL [Mass/Vol]106.2 mg/dLNoOhioHealth Mansfield HospitalComment on above:Performed By: #### LIPID, BNP, CMP #### [facility] [address] [place] [address] Dr. Mely Salmeron.total/Cholesterol in HDL [Mass ratio]4.4 {ratio} NormalParkview Health Bryan HospitalComment on above:Performed By: #### LIPID, BNP, CMP #### [facility] [address] [place] [address] Dr. Mely Bradley NORMAL> or = 60 mg/dl - LOW CARDIOVASCULAR RISK <40 mg/dl - HIGH CARDIOVASCULAR RISKGreene Memorial HospitalComment on above:Performed By: #### LIPID, BNP, CMP #### [facility] [address] [address] [address] Mely Hollingsworth CALC NORMALSEE BELOWGreene Memorial HospitalComment on above:Result Comment: <100 mg/dl OPTIMAL 100 - 129 mg/dl NEAR OR ABOVE OPTIMAL 130 - 159 mg/dl BORDERLINE HIGH 160 - 189 mg/dl HIGH >190 mg/dl VERY HIGH Performed By: #### LIPID, BNP, CMP #### [facility] [address] [place] [address] Dr. Mely MayesTriglyceride [Mass/Vol]109 mg/dLNormal<=150The [facility] Comment on above:Performed By: #### LIPID, BNP, CMP #### [facility] [address] [place] [address] Dr. Mely OttoLDL CALC21.8 mg/dLGreene Memorial HospitalComment on above: Performed By: #### LIPID, BNP, CMP #### [facility] [address] [place] [address] Dr. Mely Kwan 14(COMP METB)on 04-85-8208Hwayalm [Mass/Vol]4.1 g/dLNormal 3.4-5.0Parkview Health Bryan HospitalComment on above:Performed By: #### LIPID, BNP, CMP #### [facility] [address] [place] [address] Dr. Mely MayesAlbumin/Globulin [Mass ratio]1.1 {ratio}NormalParkview Health Bryan HospitalComment on above:Performed By: #### LIPID, BNP, CMP #### [facility] [address] [place] [address] Dr. Mely Jacobsen [Catalytic activity/Vol]79 U/BRsrxdx80-357Gba [facility] CenterComment on above:Performed By: #### LIPID, BNP, CMP #### [facility] [address] [place] [address] Dr. Mely Reynoso [Catalytic activity/Vol]36 U/OBkhbxm30-58Cxg [facility] CenterComment on above:Performed By: #### LIPID, BNP, CMP #### [facility] [address] [place] [address] Dr. Mely MayesAnion gap [Moles/Vol]13.7 mmol/LNormalParkview Health Bryan Hospital Comment on above:Performed By: #### LIPID, BNP, CMP #### [facility] [address] [address] [address] Mely MayesAST [Catalytic activity/Vol]18 U/KRiazsj70-90Xbg [facility] CenterComment on above:Performed By: #### LIPID, BNP, CMP #### [facility] [address] [place] [address] Dr. Mely MayesBilirubin [Mass/Vol]0.6 mg/dLNormal0.2-1.0[facility] Comment on above:Performed By: #### LIPID, BNP, CMP #### [facility] [address] [place] [address] Dr. Mely MayesCalcium [Mass/Vol]10.3 mg/dLCritically high8.5-10.1The [facility] CenterComment on above:Performed By: #### LIPID, BNP, CMP #### [facility] [address] [place] [address] Dr. Mely MayesChloride [Moles/Vol]101 mmol/SMnvdan41-141BtqParkview Health Bryan Hospital Comment on above:Performed By: #### LIPID, BNP, CMP #### [facility] [address] [place] [address] Dr. Mely MayesCO2 [Moles/Vol]27.5 mmol/TOhavnh91.0-32.0[facility] Comment on above:Performed By: #### LIPID, BNP, CMP #### [facility] [address] [place] [address] Dr. Mely MayesCreatinine [Mass/Vol]1.17 mg/dLNormal0.70-1.30The [facility] CenterComment on above:Performed By: #### LIPID, BNP, CMP #### [facility] [address] [place] [address] Dr. Mely KentGFR-AF CYMRAES>60Normal>=60The [facility] CenterComment on above:Performed By: #### LIPID, BNP, CMP #### [facility] [address] [address] [address] Mely KentGFR-NON AF CYMRAES>60Normal>=60The [facility] CenterComment on above:Performed By: #### LIPID, BNP, CMP #### [facility] [address] [address] [address] Mely MayesGlobulin (S) [Mass/Vol]3.7 g/dLNormClermont County HospitalComment on above:Performed By: #### LIPID, BNP, CMP #### [facility] [address] [address] [address] Mely MayesGlucose [Mass/Vol]168 mg/dLCritically dobz86-475Hru [facility] CenterComment on above:Performed By: #### LIPID, BNP, CMP #### [facility] [address] [address] [address] Mely MayesPotassium [Moles/Vol]4.2 mmol/LNormal3.5-5.1The [facility] Comment on above:Performed By: #### LIPID, BNP, CMP #### [facility] [address] [address] [address] Mely MayesProtein [Mass/Vol]7.8 g/dLNormal6.4-8.2The [facility] Comment on above:Performed By: #### LIPID, BNP, CMP #### [facility] [address] [address] [address] Mely MayesSodium [Moles/Vol]138 mmol/ZNtmoov454-225Qio [facility] Comment on above:Performed By: #### LIPID, BNP, CMP #### [facility] [address] [address] [address] Mely MayesUrea nitrogen [Mass/Vol]10.0 mg/dLNormal7.0-18.0The [facility] CenterComment on above:Performed By: #### LIPID, BNP, CMP #### [facility] [address] [address] [address] Mely MayesUrea nitrogen/Creatinine [Mass ratio]8.5 mg/mgNormalThe [facility] CenterComment on above:Performed By: #### LIPID, BNP, CMP #### [facility] [address] [address] [address] Mely MayesPROF CHEM 8 (BAS METB)on 03-60-2252Ylavj gap [Moles/Vol]14.7 mmol/LNormalThe [facility] CenterComment on above:Performed By: #### BMP ####[facility] [address] [address]Dr. Mely ChangCalcium [Mass/Vol]9.4 mg/dLNormal8.5-10.1The [facility] CenterComment on above:Performed By: #### BMP ####[facility] Sdeqkvpcio[address] [place], [place] [address]Dr.Mely ChangChloride [Moles/Vol]99 mmol/LNormal 98-107The [facility] CenterComment on above:Performed By: #### BMP ####[facility] Z[address]gfbvio[address] [place], [place] [address]Dr.Mely ChangCO2 [Moles/Vol]23.5 mmol/CJlfkla99.0-32.0The [facility] CenterComment on above: Performed By: #### BMP ####[facility] [address] [place], [place] [address]Dr.Mely ChangCreatinine [Mass/Vol]1.53 mg/dL Critically high0.70-1.30The [facility] CenterComment on above:Performed By: #### BMP ####[facility] [address]glyiwvogt[address] [place], [place] [address]Dr.Yilan ChangEGFR-AF MNCZVFUO42 mL/min/1.48z6Yolkewlocv low>=60The [facility] CenterComment on above:Performed By: #### BMP ####[facility] [address]te[address]xoqs[address] [place], [place] [address]Dr.Yilan ChangEGFR-NON AF ALJTZMAC64 mL/min/1.05g4Yhphxcumfj low>=60The [facility] CenterComment on above: Performed By: #### BMP ####[facility] [address] [place], [place] [address]Dr.Leigh Annlan ChangGlucose [Mass/Vol]258 mg/dLCritically kcop05-469TrgParkview Health Bryan HospitalComment on above:Performed By: #### BMP ####[facility] [address] [place] [address]Dr. Mely ChangPotassium [Moles/Vol]4.2 mmol/LNormal3.5-5.1The [facility] Comment on above:Performed By: #### BMP ####[facility] [address] [place] [address]Dr.Leigh Annlan ChangSodium [Moles/Vol]133 mmol/L Critically vbm587-234Prc [facility] CenterComment on above:Performed By: #### BMP ####[facility] [address]pwnsqndik[address] [place], [place] [address]Dr. Leigh Annlan ChangUrea nitrogen [Mass/Vol]11.0 mg/dLNormal7.0-18.0The [facility] Comment on above:Performed By: #### BMP ####[facility] [address]kbrnvapvn[address] [place], [place] [address]Dr.Yilan ChangUrea nitrogen/Creatinine [Mass ratio]7.2 mg/mgNormalThe [facility] CenterComment on above:Performed By: #### BMP ####[facility] [address]gceyvt[address] [place], [place] [address]Dr. Leigh Anndayana ChangCREATININEon 23-69-6760Vhilwbimgo [Mass/Vol]1.02 mg/dLNormal0.70-1.30 The [facility] CenterComment on above:Performed By: #### CREA #### [facility] [address] [address] [address] Boone ChangEGFR-AF CYMRAES>60Normal>=60The [facility] CenterComment on above:Performed By: #### CREA #### [facility] [address] [address] [address] Boone ChangEGFR-NON AF CYMRAES>60Normal>=60The [facility] CenterComment on above:Performed By: #### CREA #### [facility] [address] [address] [address] Mely Robertson ABD/PELV W CONon 68-57-5311SL ABD/PELV W CONEXAMINATION: CT ABD/PELV W CON HISTORY: Abdominal colic [...] Electronically authenticated by: CHRIS VITAL Date: 2022-08-24 09:22[facility] HospitalGLYCOHEMOGLOBIN A1Con 90-56-4725PWC RECOMMENDATIONSEE BELOW NormalThe [facility] CenterComment on above:Result Comment: ADA RECOMMENDED LIMIT 4.0 - 6.0 ADA THERAPEUTIC TARGET < 7.0 ACTION SUGGESTED > 7.0Performed By: #### DATA1C #### [facility] [address] [address] [address] Mely MayesGlucose [Mass/Vol]163 mg/dLNormalThe [facility] CenterComment on above:Performed By: #### DATA1C #### [facility] [address] [address] [address] Mely MayesHbA1c (Bld) [Mass fraction]7.3 %Critically high4.5-6.2The [facility] CenterComment on above:Performed By: #### DATA1C #### [facility] [address] [address] [address] Mely MayesCOVID/FLU/RSV RT-PCRon 71-70-4485RNQB-CoV-2 (COVID-19) RNA ESTEBAN+probe Ql (Unsp spec)NegativeAppurifyJefferson Health [facility] Other COVID/FLU/RSV RT-PCRNegativeAppurify pbsi Other Quick Strepon 2S. pyogenes Org specific cx Ql (Throat)NegativeAppurify pbsi Other quick [employer] Other PROF CHEM 8 (BAS METB)on 35-39-4143Gnqny gap [Moles/Vol]11.0 mmol/LNormalThe [facility] CenterComment on above:Performed By: #### BMP ####[facility] [address] [address]DrVirgil ChangCalcium [Mass/Vol]9.2 mg/dLNormal8.5-10.1The [facility] CenterComment on above:Performed By: #### BMP ####[facility] [address] [address]DrVirgil ChangChloride [Moles/Vol]102 mmol/TDdpauf52-948Uhh [facility] CenterComment on above:Performed By: #### BMP ####[facility] [address]xoqkateok[address] [place], [place] [address]Dr.Yilan ChangCO2 [Moles/Vol]27.7 mmol/QJcnqic70.0-32.0The [facility] CenterComment on above:Performed By: #### BMP ####[facility] Yfwglexnvz[address] [place], [place] [address]Dr.Yilan ChangCreatinine [Mass/Vol]1.00 mg/dLNormal0.70-1.30The [facility] CenterComment on above: Performed By: #### BMP ####[facility] Pvacfntxdv[address] [place], [place] [address]Dr.Yilan ChangEGFR-AF CYMRAES>60Normal>=60The [facility] CenterComment on above:Performed By: #### BMP ####[facility] Iibmixwjeb[address] [place], [place] [address]Dr.Yilan ChangEGFR-NON AF CYMRAES>60Normal>=60The [facility] CenterComment on above:Performed By: #### BMP ####[facility] Ergbkxrhuk[address] [place], [place] [address]Dr. Yilan ChangGlucose [Mass/Vol]139 mg/dLCritically kesp77-906Nol [facility] Comment on above:Performed By: #### BMP ####[facility] [address]qrpfgkwhd[address] [place], [place] [address]Dr.Yilan ChangPotassium [Moles/Vol]3.7 mmol/LNormal3.5-5.1The [facility] CenterComment on above:Performed By: #### BMP ####[facility] [address]esxhznr[address] [place], [place] [address]Dr. Yilan ChangSodium [Moles/Vol]137 mmol/ENzuqla243-372Sbh [facility] CenterComment on above:Performed By: #### BMP ####[facility] Flbhvzmtss[address] [place], [place] [address]Dr.Yilan ChangUrea nitrogen [Mass/Vol]10.0 mg/dLNormal 7.0-18.0The [facility] CenterComment on above:Performed By: #### BMP ####[facility] [address]kcxdilgew[address] [place], [place] [address]Dr. Mely MayesUrea nitrogen/Creatinine [Mass ratio]10.0 mg/mgNormalThe [facility] CenterComment on above:Performed By: #### BMP ####[facility] [address] [address]Dr.Yilan MayesPROF CHEM 8 (BAS METB)on 63-87-5481Wkdlt gap [Moles/Vol]10.3 mmol/LNormalThe [facility] CenterComment on above:Performed By: #### BMP #### [facility] [address] [address] [address] Mely MayesCalcium [Mass/Vol]9.1 mg/dLNormal8.5-10.1The [facility] Comment on above:Performed By: #### BMP #### [facility] [address] [address] [address] Mely MayesChloride [Moles/Vol]103 mmol/MRhajud98-644Dos [facility] Comment on above:Performed By: #### BMP #### [facility] [address] [address] [address] Mely MayesCO2 [Moles/Vol]25.4 mmol/GVipepd55.0-32.0The [facility] Comment on above:Performed By: #### BMP #### [facility] [address] [address] [address] Mely MayesCreatinine [Mass/Vol]1.06 mg/dLNormal0.70-1.30The [facility] CenterComment on above:Performed By: #### BMP #### [facility] [address] [address] [address] Boone ChangEGFR-AF CYMRAES>60Normal>=60The [facility] CenterComment on above:Performed By: #### BMP #### [facility] [address] [address] [address] Boone ChangEGFR-NON AF CYMRAES>60Normal>=60The [facility] CenterComment on above:Performed By: #### BMP #### [facility] [address] [address] [address] Mely MayesGlucose [Mass/Vol]247 mg/dLCritically deog30-224Cbz [facility] CenterComment on above:Performed By: #### BMP #### [facility] [address] [address] [address] Mely MayesPotassium [Moles/Vol]3.7 mmol/LNormal3.5-5.1[facility] Comment on above:Performed By: #### BMP #### [facility] [address] [address] [address] Mely MayesSodium [Moles/Vol]135 mmol/LCritically fcf716-873Obz [facility] CenterComment on above:Performed By: #### BMP #### [facility] [address] [address] [address] Mely MayesUrea nitrogen [Mass/Vol]11.0 mg/dLNormal7.0-18.0The [facility] CenterComment on above:Performed By: #### BMP #### [facility] [address] [address] [address] Mely MayesUrea nitrogen/Creatinine [Mass ratio]10.4 mg/mgNormalThe [facility] CenterComment on above:Performed By: #### BMP #### [facility] [address] [place] [address] Dr. Mely MayesPROF CHEM 8 (BAS METB)on 22-30-9377Jlemn gap [Moles/Vol]10.1 mmol/LNormalThe [facility] CenterComment on above:Performed By: #### BMP #### [facility] [address] [address] [address] Mely MayesCalcium [Mass/Vol]9.0 mg/dLNormal8.5-10.1The [facility] Comment on above:Performed By: #### BMP #### [facility] [address] [address] [address] Mely MayesChloride [Moles/Vol]100 mmol/JXgozmg32-322Mkw [facility] Comment on above:Performed By: #### BMP #### [facility] [address] [address] [address] Mely MayesCO2 [Moles/Vol]28.0 mmol/UPjwhbh27.0-32.0The [facility] Comment on above:Performed By: #### BMP #### [facility] [address] [address] [address] Mely MayesCreatinine [Mass/Vol]1.13 mg/dLNormal0.70-1.30The [facility] CenterComment on above:Performed By: #### BMP #### [facility] [address] [address] [address] Boone ChangEGFR-AF CYMRAES>60Normal>=60The [facility] CenterComment on above:Performed By: #### BMP #### [facility] [address] [place] [address] Dr. Mely KentGFR-NON AF CYMRAES>60Normal>=60The [facility] CenterComment on above:Performed By: #### BMP #### [facility] [address] [address] [address] Mely MayesGlucose [Mass/Vol]285 mg/dLCritically deuc92-827Ftx [facility] CenterComment on above:Performed By: #### BMP #### [facility] [address] [place] [address] Dr. Mely MayesPotassium [Moles/Vol]4.1 mmol/LNormal3.5-5.1The [facility] Comment on above:Performed By: #### BMP #### [facility] [address] [address] [address] Mely MayesSodium [Moles/Vol]134 mmol/LCritically ndd465-544Qjm [facility] on above:Performed By: #### BMP #### [facility] [address] [address] [address] Mely MayesUrea nitrogen [Mass/Vol]9.0 mg/dLNormal7.0-18.0The [facility] CenterComment on above:Performed By: #### BMP #### [facility] [address] [address] [address] Mely Tello nitrogen/Creatinine [Mass ratio]8.0 mg/mgNormClermont County HospitalComment on above:Performed By: #### BMP #### [facility] [address] [address] [address] Mely Patterson Quick Testingon 11-56-0171VbknryJrphakwpQxnzo pbsi Other BASIC METABOLIC PANELon 30-61-8637Itwffoc [Mass/Vol] 9.0 mg/dLNormal8.6-10.3The [facility] CenterComment on above: Order Comment: Check Chest Tube PositionPerformed By: #### [id number], [id number] ####[facility] [place] [address], [place] Chloride [Moles/Vol]103 mmol/NIfrfzi87-276Iju [facility] CenterComment on above:Order Comment: Check Chest Tube PositionPerformed By: #### [id number], [id number] ####[facility] [place] [address], [place]ACO2 [Moles/Vol]24 mmol/IEmpvro47-21Nmg [facility] CenterComment on above:Order Comment: Check Chest Tube Position Performed By: #### [id number], [id number] ####[facility] [place] [address], USACreatinine [Mass/Vol]0.84 mg/dLNormal 0.70-1.30The [facility] CenterComment on above:Order Comment: Check Chest Tube PositionPerformed By: #### 56025, 53300 ####[facility] [place] [address], USAGFR/1.73 sq M.predicted among blacks MDRD (S/P/Bld) [Vol rate/Area]mL/min/{1.73_m2}Normal>60 The [facility] CenterComment on above:Order Comment: Check Chest Tube PositionPerformed By: #### 09430, 60616 ####[facility] [place] [address], USAGFR/1.73 sq M.predicted among non-blacks MDRD (S/P/Bld) [Vol rate/Area]mL/min/{1.73_m2}Normal>60The [facility] CenterComment on above:Order Comment: Check Chest Tube PositionPerformed By: #### 94218, 98226 ####[facility] [place] [address], USAGlucose [Mass/Vol]137 mg/dLHigh 70-100The [facility] CenterComment on above:Order Comment: Check Chest Tube PositionPerformed By: #### 85807, 90251 ####[facility] [facility] [place] [address], USAPotassium [Moles/Vol]3.6 mmol/LNormal3.5-5.1The [facility] Campus Medical CenterComment on above:Order Comment: Check Chest Tube PositionPerformed By: #### 69076, 81512 ####[facility] [facility] [place] [address], USASodium [Moles/Vol]138 mmol/TKtuoci768-226Dve [facility] Medical CenterComment on above:Order Comment: Check Chest Tube PositionPerformed By: #### 20666, 10610 ####[facility] [facility] [place] [address], USAUrea nitrogen [Mass/Vol]13 mg/dLNormal7-25The [facility] Medical CenterComment on above:Order Comment: Check Chest Tube PositionPerformed By: #### 57004, 04252 ####[facility] [facility] [place] [address], USACBC COMPLETE BLOOD COUNTon 87-92-1658Lmzqsnfubse distribution width (RBC) [Ratio]13.0 %Wqtaar25.5-15.0The [facility] Medical CenterComment on above:Order Comment: evaluate Performed By: #### 68700 ####[facility] [facility] [place] [address], USAHematocrit (Bld) [Volume fraction]33.3 %Low39.0-50.0The [facility] Campus Medical CenterComment on above:Order Comment: evaluate Performed By: #### 36907 ####[facility] [facility] [place] [address], [facility] ROSWELLHemoglobin (Bld) [Mass/Vol]11.8 g/dLLow13.0-17.0The [facility] Medical CenterComment on above:Order Comment: evaluate Performed By: #### 24919 ####[facility] [facility] [place] [address], [facility], ROSWELLMCH (RBC) [Entitic mass]30.3 idEguogk90.0-33.0The [facility] Medical CenterComment on above:Order Comment: evaluate Performed By: #### 98548 ####[facility] [facility] [place] [address], [facility] ROSWELLMCHC (RBC) [Mass/Vol]35.4 g/yTVbbs14.0-35.0The [facility] Medical CenterComment on above:Order Comment: evaluate Performed By: #### 97445 ####[facility] [facility] [place] [address], [facility] ROSWELLMCV (RBC) [Entitic vol]85.6 gTVeyfsi63.0-98.0The [facility] Medical CenterComment on above:Order Comment: evaluate Performed By: #### 97422 ####[facility] [place] [address].[place] [address], USANucleated RBC/100 WBC (Bld) [Ratio]0 %Normal0-0The [facility] Medical CenterComment on above:Order Comment: evaluate Performed By: #### 51068 ####[facility] [place], [place] [address]E.[place] [id number], USAPLAT [id number] 10*3/uAMlezyg386-688Fta [facility] CenterComment on above:Order Comment: evaluatePerformed By: #### 58259 ####[facility] [place] [address], [facility], ROSWELLRBC (Bld) [#/Vol]3.89 10*6/uLLow4.20-5.70The [facility] Medical CenterComment on above:Order Comment: evaluatePerformed By: #### 52353 ####[facility] [facility] [place] [address], [facility] [place] WBC (Bld) [#/Vol]9.88 10*3/uLNormal4.00-10.60The [facility] Medical CenterComment on above:Order Comment: evaluatePerformed By: #### 72363 ####[facility] [facility] [place] [address], [facility] [place] MAGNESIUM BLOODon 96-04-5511Soexliaju [Mass/Vol]2.3 mg/dLNormal1.9-2.7The [facility] Medical CenterComment on above:Order Comment: Check Chest Tube PositionPerformed By: #### 72431, 94672 ####[facility] [facility] [place] [address], [facility], ROSWELLPOC GLUCOSE LABon 01-07-2022 Glucose [Mass/Vol]143 mg/oTXimw85-706Zby [facility] Comment on above:Performed By: #### 88776 ####[facility] [facility] [place] [address], [facility] ROSWELLGlucose [Mass/Vol]182 mg/dLHigh 70-100The [facility] Medical CenterComment on above:Performed By: #### 55679 ####[facility] [facility] [place] [address], [facility], ROSWELLPORTABLE CHEST 1 VIEWon 54-12-3361EAJPYJME CHEST 1 VIEWMain Campus Medical Center Department of Radiology [address] [place] [id number] Patient Name: OSWALD OCHOA : 1955 Sex: M Age: Race: White Pt. Location: [address] [place] [address] Patient Status: I Ordered Date: 01/07/2022 5:00:00 [...] improved Electronically signed: YOLANDA GUTIERREZ. Transcribed by: [email or web address], User Resident: Electronically Signed by: YOLANDA GUTIERREZ @ 01/07/2022 09:39 AMNormalThe [facility] Campus Medical CenterComment on above:Order Comment: Evaluate for PneumothoraxBASIC METABOLIC PANELon 80-74-2406Jeatruq [Mass/Vol]9.0 mg/dLNormal 8.6-10.3The [facility] Medical CenterComment on above:Order Comment: No: Do not add to previous drawPerformed By: #### 99588, 10174 ####[facility] [place] [address], USAChloride [Moles/Vol]100 mmol/XLzvpyw11-892Mlr [facility] CenterComment on above:Order Comment: No: Do not add to previous drawPerformed By: #### 03345, 87150 ####[facility] [place] [address], USACO2 [Moles/Vol]26 mmol/RSkhxqr70-93Uqk [facility] CenterComment on above:Order Comment: No: Do not add to previous drawPerformed By: #### 71179, 06249 ####[facility] [place] [address], USACreatinine [Mass/Vol]0.75 mg/dLNormal0.70-1.30The [facility] Medical CenterComment on above:Order Comment: No: Do not add to previous drawPerformed By: #### 54577, 56414 ####[facility] [place] [address], USAGFR/1.73 sq M.predicted among blacks MDRD (S/P/Bld) [Vol rate/Area]mL/min/{1.73_m2}Normal>60The [facility] Medical CenterComment on above:Order Comment: No: Do not add to previous drawPerformed By: #### 99055, 68737 ####[facility] [place] [address], USAGFR/1.73 sq M.predicted among non-blacks MDRD (S/P/Bld) [Vol rate/Area]mL/min/{1.73_m2}Normal>60The [facility] Medical CenterComment on above:Order Comment: No: Do not add to previous drawPerformed By: #### 80456, 71708 ####[facility] [place] [address], USAGlucose [Mass/Vol]139 mg/gDGmqe68-770Nhd [facility] Medical CenterComment on above:Order Comment: No: Do not add to previous drawPerformed By: #### 23034, 10217 ####[facility] [place] [address], [place] Potassium [Moles/Vol]3.4 mmol/LLow3.5-5.1The [facility] Comment on above:Order Comment: No: Do not add to previous drawPerformed By: #### 26670, 69257 ####[facility] [place] [address], USASodium [Moles/Vol]136 mmol/AWfdwjs468-391Bzw [facility] CenterComment on above:Order Comment: No: Do not add to previous drawPerformed By: #### 97691, 92340 ####[facility] [place] [address], USAUrea nitrogen [Mass/Vol]12 mg/dL Normal7-25The [facility] Medical CenterComment on above:Order Comment: No: Do not add to previous drawPerformed By: #### 95897, 53732 ####[facility] [facility] [place] [address], USACBC COMPLETE BLOOD COUNTon 18-55-1548Irwioqcskwo distribution width (RBC) [Ratio]12.5 %Normal 11.5-15.0The [facility] Medical CenterComment on above:Order Comment: No: Do not add to previous drawPerformed By: #### 53742 ####[facility] [facility] [place] [address], [facility] ROSWELLHematocrit (Bld) [Volume fraction]30.8 %Low39.0-50.0The [facility] Medical CenterComment on above:Order Comment: No: Do not add to previous drawPerformed By: #### 33482 ####[place] [address], [facility] [place] Hemoglobin (Bld) [Mass/Vol]10.9 g/dLLow13.0-17.0The [facility] Medical CenterComment on above:Order Comment: No: Do not add to previous drawPerformed By: #### [address]32[address] ####[place] [address], [facility] ROSWELLMCH (RBC) [Entitic mass]30.2 izAugyom24.0-33.0The [facility] Medical CenterComment on above:Order Comment: No: Do not add to previous drawPerformed By: #### [address]47[address] ####[place] [address], [facility] ROSWELLMCHC (RBC) [Mass/Vol]35.4 g/jNMyxs85.0-35.0 The [facility] Medical CenterComment on above:Order Comment: No: Do not add to previous drawPerformed By: #### 18435 ####[address] [place] [address], [facility] ROSWELLMCV (RBC) [Entitic vol] 85.3 qSFfbqyu21.0-98.0The [facility] CenterComment on above: Order Comment: No: Do not add to previous drawPerformed By: #### 53298 ####[place] [address], [facility] [place] Nucleated RBC/100 WBC (Bld) [Ratio]0 %Normal0-0The [facility] Medical CenterComment on above:Order Comment: No: Do not add to previous drawPerformed By: #### 80000 ####[facility] [place] [address], USAPLAT OEV912 10*3/sXQyvbgo422-065Pse [facility] CenterComment on above:Order Comment: No: Do not add to previous drawPerformed By: #### 38399 ####[facility] [place] [address], USARBC (Bld) [#/Vol]3.61 10*6/uLLow4.20-5.70The [facility] CenterComment on above:Order Comment: No: Do not add to previous draw Performed By: #### 11947 ####[facility] [place] [address], [facility] ROSWELLWBC (Bld) [#/Vol]11.89 10*3/uLHigh4.00-10.60The [facility] CenterComment on above:Order Comment: No: Do not add to previous drawPerformed By: #### 98802 ####[facility] [place] [address], USAMAGNESIUM BLOODon 01-06-2022 Magnesium [Mass/Vol]1.9 mg/dLNormal1.9-2.7The [facility] CenterComment on above:Order Comment: No: Do not add to previous drawPerformed By: #### 62672, 08698 ####[facility] [place] [address], USAPOC GLUCOSE LABon 44-81-8591Umukygu [Mass/Vol]143 mg/dL Vxrp60-979Jkj [facility] CenterComment on above:Performed By: #### 25576 ####[facility] [place] [address], USAGlucose [Mass/Vol]159 mg/zVUjui16-233Pyi [facility] CenterComment on above:Performed By: #### 36929 ####[facility] [facility] [place] [address], USAGlucose [Mass/Vol]215 mg/dLHigh 70-100The [facility] CenterComment on above:Performed By: #### 52816 ####[facility] [place] [address], USAGlucose [Mass/Vol]153 mg/fBMuhq40-937Aiz [facility] CenterComment on above:Performed By: #### 80877 ####[facility] [place] [address], USAPORTABLE CHEST 1 VIEWon 93-45-1472ORMTCDNU CHEST 1 VIEWUnKettering Health [facility] Department of Radiology [address] [place] [address] Patient Name: OSWALD OCHOA : 1955 Sex: M Age: Race: White Pt. Location: [place] [address] Patient Status: I Ordered Date: 01/06/2022 5:00:00 [...] atelectasis. Electronically signed: YOLANDA GUTIERREZ. Transcribed by: [email or web address], User Resident: Electronically Signed by: YOLANDA GUTIERREZ @ 01/06/2022 09:50 AMNormalThe [facility] Campus Medical CenterComment on above:Order Comment: Evaluate for AtelectasisBASIC METABOLIC PANELon 97-54-8355Drjnapt [Mass/Vol]9.0 mg/dLNormal 8.6-10.3The [facility] Medical CenterComment on above:Order Comment: Check Chest Tube PositionPerformed By: #### 83662, 80197, 90505 ####[facility] [place] [address], USAChloride [Moles/Vol]101 mmol/WBwjzmc29-127Cwr [facility] CenterComment on above:Order Comment: Check Chest Tube PositionPerformed By: #### 43235, 56258, 04938 ####[facility] [place] [address], USACO2 [Moles/Vol]28 mmol/CCxbncc28-12Vgi [facility] CenterComment on above:Order Comment: Check Chest Tube PositionPerformed By: #### 71645, 33222, 45016 ####[facility] [place] [address], USACreatinine [Mass/Vol]0.79 mg/dLNormal0.70-1.30The [facility] CenterComment on above:Order Comment: Check Chest Tube PositionPerformed By: #### 36654, 86575, 38376 ####[facility] [place] [address], USAGFR/1.73 sq M.predicted among blacks MDRD (S/P/Bld) [Vol rate/Area]mL/min/{1.73_m2}Normal>60The [facility] CenterComment on above:Order Comment: Check Chest Tube PositionPerformed By: #### 57027, 61462, 52070 ####[facility] [place] [address], USAGFR/1.73 sq M.predicted among non-blacks MDRD (S/P/Bld) [Vol rate/Area]mL/min/{1.73_m2}Normal>60The [facility] CenterComment on above:Order Comment: Check Chest Tube PositionPerformed By: #### 25095, 82093, 32106 ####[facility] [place] [address], [facility] ROSWELLPotassium [Moles/Vol]3.9 mmol/LNormal3.5-5.1The [facility] CenterComment on above:Order Comment: Check Chest Tube PositionPerformed By: #### 76228, 25200, 84558 ####[facility] [facility] [place] [address], [place] Sodium [Moles/Vol]135 mmol/VWvn517-015Dkb [facility] Comment on above:Order Comment: Check Chest Tube PositionPerformed By: #### 68393, 61209, 11882 ####[facility] [place] [address], USAUrea nitrogen [Mass/Vol]9 mg/dLNormal7-25The [facility] CenterComment on above:Order Comment: Check Chest Tube PositionPerformed By: #### 16371, 28664, 16135 ####[facility] [place] [address], USACBC COMPLETE BLOOD COUNTon 45-76-8001Xwjngutnlvn distribution width (RBC) [Ratio]13.1 %Lcjjpm87.5-15.0The [facility] CenterComment on above:Order Comment: No: Do not add to previous drawPerformed By: #### 42289 ####[facility] [facility] [place] [address], [facility] ROSWELLHematocrit (Bld) [Volume fraction] 30.6 %Low39.0-50.0The [facility] CenterComment on above:Order Comment: No: Do not add to previous drawPerformed By: #### 54730 ####[facility] [place] [address].[place] [address], [facility] ROSWELLHemoglobin (Bld) [Mass/Vol]10.6 g/dLLow13.0-17.0The [facility] CenterComment on above:Order Comment: No: Do not add to previous drawPerformed By: #### 49453 ####[facility] [facility] [place] [address], [facility] [place] MCH (RBC) [Entitic mass]30.3 iuZipdqi70.0-33.0The [facility] CenterComment on above:Order Comment: No: Do not add to previous drawPerformed By: #### 95376 ####[facility] [place] [address].[place] [address], [facility] ROSWELLMCHC (RBC) [Mass/Vol]34.6 g/fDUvgpvl22.0-35.0The [facility] CenterComment on above:Order Comment: No: Do not add to previous drawPerformed By: #### 90102 ####[facility] [place] [address].[place] [address], [facility] ROSWELLMCV (RBC) [Entitic vol]87.4 tCCpptaj89.0-98.0 The [facility] Medical CenterComment on above:Order Comment: No: Do not add to previous drawPerformed By: #### 27532 ####[facility] [place] [address], [facility] ROSWELLNucleated RBC/100 WBC (Bld) [Ratio]0 %Normal0-0The [facility] CenterComment on above:Order Comment: No: Do not add to previous drawPerformed By: #### 89090 ####[facility] [facility] [place] [address], [place] PLAT KAX483 10*3/dFGwxpcb395-432Vjb [facility] CenterComment on above:Order Comment: No: Do not add to previous drawPerformed By: #### 84426 ####[facility] [facility] [place] [address], [facility] [place] RBC (Bld) [#/Vol]3.50 10*6/uLLow4.20-5.70The [facility] Comment on above:Order Comment: No: Do not add to previous drawPerformed By: #### 49261 ####[facility] [facility] [place] [address], [facility] ROSWELLWBC (Bld) [#/Vol]13.63 10*3/uLHigh4.00-10.60The [facility] CenterComment on above:Order Comment: No: Do not add to previous draw Performed By: #### 74688 ####[facility] [facility] [place] [address], [facility] ROSWELLMAGNESIUM BLOODon 47-99-3008Gyytsxgho [Mass/Vol]2.0 mg/dLNormal1.9-2.7The [facility] CenterComment on above:Order Comment: Check Chest Tube PositionPerformed By: #### 73214, 24031, 70355 ####[facility] [place] [address], [facility] [place] PHOSPHORUS BLOODon 23-45-7163Yekjnuzkb [Mass/Vol]2.8 mg/dLNormal2.5-5.0The [facility] CenterComment on above:Performed By: #### 58930, 97564, 47888 ####[facility] [facility] [place] [address], [facility], ROSWELLPOC GLUCOSE LABon 42-94-4189Nbzvoiz [Mass/Vol]136 mg/zCBsxc22-307 The [facility] Medical CenterComment on above:Performed By: #### 15134 ####[facility] [facility] [place] [address], [place] Glucose [Mass/Vol]157 mg/zCFeln21-810Ozd [facility] Comment on above:Performed By: #### 73116 ####[facility] [facility] [place] [address], [facility] ROSWELLGlucose [Mass/Vol]147 mg/dLHigh 70-100The [facility] CenterComment on above:Performed By: #### 07896 ####[facility] [facility] [place] [address], USAOrder Comment: Check Chest Tube PositionPerformed By: #### 52354, 24488, 42189 ####[place] [address] [facility] [place] [address], [facility] ROSWELLGlucose [Mass/Vol]151 mg/pXRmgn43-855Rji [facility] CenterComment on above:Performed By: #### 13027 ####[address] [place] [address], USAPORTABLE CHEST 1 VIEWon 59-56-6527PMOLUFSQ CHEST 1 VIEWUnKettering [facility] of Rad[facility] [address] [place] [address] Patient Name: OSWALD OCHOA: 1955 Sex: M Age: Race: White Pt. Location: [place] [address] Patient Status: I Ordered Date: 01/05/2022 12:20:00 [...] hours. Electronically signed: Nic Ramon. Transcribed by: [email or web address], User Resident: Electronically Signed by: NIC RAMON @ 01/05/2022 05:15 PMNHocking Valley Community HospitalComment on above:Order Comment: evaluate PORTABLE CHEST 1 VIEWUnKettering Health [facility] Department of Radiology [address] [place] [id number] Patient Name: OSWALD OCHOA : 1955 Sex: M Age: Race: White Pt. Location: [place] [address] Patient Status: I Ordered Date: 01/05/2022 5:00:00 [...] appreciated. Electronically signed: Michelle Kc. Transcribed by: [email or web address], User Resident: Electronically Signed by: MICHELLE KC @ 01/05/2022 08:23 AMNormalUC Medical CenterComment on above:Order Comment: evaluate for AtelectasisAPTTon 21-70-9076dJPV Coag (Bld) [Time]31.0 kNtnkwl58.0-35.0The [facility] CenterComment on above:Order Comment: evaluate Result Comment: ALL RESULTS MUST BE INTERPRETED WITH RESPECT TO BLOOD DRAWING ARTIFACT OR DILUTION ERROR OF ANTICOAGULANT AT THE TIME OF SAMPLING. THE APTT SHOULD NOT BE USED TO MONITOR UNFRACTIONATED HEPARIN THERAPY, THIS LABORATORY NO LONGER HAS AN ESTABLISHED THERAPEUTIC RANGE BASED ON THE APTT. IT IS RECOMMENDED THAT THE [facility] - HEPARIN ASSAY (ANTI-XA ACTIVITY) BE USED FOR THIS PURPOSE.Performed By: #### 56997, 70792 ####[place] [id number] [facility].[address] ARTERIAL BLOOD GAS WITH ICAon 70-71-5796RMGO EXCESS-5 mmol/LLow-2-3The [facility] CenterComment on above:Order Comment: Check Chest Tube Position, ON ARRIVAL TO CVUPerformed By: #### 66662 ####[address] [place] [address], [facility], ROSWELLDELIVERY SYSTEMS VENTILATORNoBellevue HospitalComment on above:Order Comment: Check Chest Tube Position, ON ARRIVAL TO CVUPerformed By: #### 94479 ####[place] [address] [facility].[address] QSY895 %NormalThe [facility] Medical CenterComment on above:Order Comment: Check Chest Tube Position, ON ARRIVAL TO CVUPerformed By: #### 04687 ####[address] [place] [address], [facility] [place] HCO3 (Bld) [Moles/Vol]22 mmol/IVhnfip15-27Crr [facility] CenterComment on above:Order Comment: Check Chest Tube Position, ON ARRIVAL TO CVUPerformed By: #### 37275 ####[place] [address] [facility] [place] [address], [facility], ROSWELLIONIZED CALCIUMERRORNormal1.13-1.32The [facility] CenterComment on above:Order Comment: Check Chest Tube Position, ON ARRIVAL TO CVUPerformed By: #### 53065 ####[place] [address] [place] [address], USAMIN FDDTXC61.7 NormalThe [facility] Campus Medical CenterComment on above:Order Comment: Check Chest Tube Position, ON ARRIVAL TO CVUPerformed By: #### 66677 ####[facility] [place] [address], [place] MODALITYSPONTNormOhioHealth Pickerington Methodist HospitalComment on above:Order Comment: Check Chest Tube Position, ON ARRIVAL TO CVUPerformed By: #### 90456 ####[facility] [place] [address], [place] Oxygen (Bld) [Partial pressure]116 mm[Hg]Critically ajgn86-907Gse [facility] CenterComment on above:Order Comment: Check Chest Tube Position, ON ARRIVAL TO CVUPerformed By: #### 88624 ####[facility] [place] [address], USAOxygen saturation in Blood96.7 % Xjmawz48.0-97.0The [facility] CenterComment on above:Order Comment: Check Chest Tube Position, ON ARRIVAL TO CVUPerformed By: #### 01486 ####[facility] [place] [address], [place] RHM166 hhLtNkvmxy30-29Frr [facility] CenterComment on above: Order Comment: Check Chest Tube Position, ON ARRIVAL TO CVUPerformed By: #### 19273 ####[facility] [place] [address], USAPEEP8.0 NAG62KxvhhhUlbBellevue HospitalComment on above:Order Comment: Check Chest Tube Position, ON ARRIVAL TO CVUPerformed By: #### 45783 ####[facility] [place] [address], USApH (Bld)7.29 [pH]Low7.35-7.45The [facility] Comment on above:Order Comment: Check Chest Tube Position, ON ARRIVAL TO CVU Performed By: #### 57159 ####[facility] [place] [address], USAPRESSURE VUPRGNP1HaxmhjOfl [facility] CenterComment on above:Order Comment: Check Chest Tube Position, ON ARRIVAL TO CVUPerformed By: #### 96535 ####[facility] [place] [address], USABASIC METABOLIC PANELon 43-60-9521Skyqtzy [Mass/Vol]8.5 mg/dLLow8.6-10.3The [facility] Medical CenterComment on above:Order Comment: post thoracotomyPerformed By: #### 00486, 29255, 97457 ####[facility] [place] [address], [place] Chloride [Moles/Vol]107 mmol/OFkqgwx15-678Bko [facility] CenterComment on above:Order Comment: post thoracotomyPerformed By: #### 86127, 22901, 98966 ####[facility] [place] [address], [place]ACO2 [Moles/Vol]25 mmol/QIcugeu82-48Vnv [facility] Medical CenterComment on above:Order Comment: post thoracotomyPerformed By: #### [id number], [id number], [id number] ####[facility] [place] [address], USACreatinine [Mass/Vol]0.96 mg/dLNormal0.70-1.30The [facility] Campus Medical CenterComment on above:Order Comment: post thoracotomyPerformed By: #### [id number], [id number], [id number] ####[facility] [place] [address], USAGFR/1.73 sq M.predicted among blacks MDRD (S/P/Bld) [Vol rate/Area]mL/min/{1.73_m2}Normal>60The [facility] Campus Medical CenterComment on above:Order Comment: post thoracotomyPerformed By: #### 40190, 03386, 32731 ####[facility] [place] [address], USAGFR/1.73 sq M.predicted among non-blacks MDRD (S/P/Bld) [Vol rate/Area]mL/min/{1.73_m2}Normal>60[facility] Comment on above:Order Comment: post thoracotomyPerformed By: #### 53460, 75295, 17544 ####[facility] [place] [address], USAGlucose [Mass/Vol]172 mg/jLCkrj11-826Nol [facility] Medical CenterComment on above:Order Comment: post thoracotomyPerformed By: #### 10371, 17000, 92431 ####[facility] [place] [address], USAPotassium [Moles/Vol]4.1 mmol/LNormal3.5-5.1The [facility] Medical CenterComment on above:Order Comment: post thoracotomyPerformed By: #### 10521, 48653, 15505 ####[facility] [place] [address], USASodium [Moles/Vol]139 mmol/MNsbhun338-764Jmy [facility] CenterComment on above:Order Comment: post thoracotomyPerformed By: #### 15959, 27497, 38542 ####[facility] [place] [address], USAUrea nitrogen [Mass/Vol]10 mg/dLNormal7-25The [facility] CenterComment on above:Order Comment: post thoracotomyPerformed By: #### 06536, 13653, 45886 ####[facility] [place] [address], USACBC COMPLETE BLOOD COUNTon 76-23-1603Ezoglqgqhsn distribution width (RBC) [Ratio]12.7 %Normal 11.5-15.0The [facility] CenterComment on above:Order Comment: No: Do not add to previous drawNurse draw per rn evanPerformed By: #### 25742 ####[facility] [facility] [place] [address], [facility] [place] Hematocrit (Bld) [Volume fraction]30.5 %Low39.0-50.0The [facility] Medical CenterComment on above:Order Comment: No: Do not add to previous drawNurse draw per rn evanPerformed By: #### 54696 ####[facility] [facility] [place] [address], [facility] ROSWELLHemoglobin (Bld) [Mass/Vol]10.6 g/dLLow13.0-17.0The [facility] CenterComment on above:Order Comment: No: Do not add to previous drawNurse draw per rn clare Performed By: #### 48037 ####[facility] [facility] [place] [address], [facility] ROSWELLMCH (RBC) [Entitic mass]30.1 fwTytxxh19.0-33.0The [facility] CenterComment on above:Order Comment: No: Do not add to previous drawNurse draw per rn evanPerformed By: #### 56527 ####[facility] [facility] [place] [address], [place] MCHC (RBC) [Mass/Vol]34.8 g/uWUfnxeu53.0-35.0The [facility] CenterComment on above:Order Comment: No: Do not add to previous drawNurse draw per rn evanPerformed By: #### 45565 ####[facility] [facility] [place] [address], [facility] ROSWELLMCV (RBC) [Entitic vol]86.6 lEMaajsn75.0-98.0 The [facility] Medical CenterComment on above:Order Comment: No: Do not add to previous drawNurse draw per rn evanPerformed By: #### 79948 ####[facility] [place] [address], [facility] [place] Nucleated RBC/100 WBC (Bld) [Ratio]0 %Normal0-0The [facility] CenterComment on above:Order Comment: No: Do not add to previous drawNurse draw per rn evanPerformed By: #### 01224 ####[facility] [place] [address], USAPLAT NDD208 10*3/gQMhu120-493Lgj [facility] CenterComment on above:Order Comment: No: Do not add to previous drawNurse draw per rn evanPerformed By: #### 70959 ####[facility] [facility] [place] [address], [facility] ROSWELLRBC (Bld) [#/Vol] 3.52 10*6/uLLow4.20-5.70The [facility] CenterComment on above: Order Comment: No: Do not add to previous drawNurse draw per rn evanPerformed By: #### 95909 ####[facility] [facility] [place] [address], [facility] ROSWELLWBC (Bld) [#/Vol]11.45 10*3/uLHigh4.00-10.60The [facility] CenterComment on above:Order Comment: No: Do not add to previous drawNurse draw per rn evanPerformed By: #### 89610 ####[facility] [facility] [place] [address], [facility] ROSWELLLACTATE BLOODon 01-04-2022 Lactate [Moles/Vol]2.0 mmol/LNormal.5-2.2The [facility] Comment on above:Order Comment: Check Chest Tube PositionPerformed By: #### 29826 ####[facility] [facility] [place] [address], USAMAGNESIUM BLOODon 20-31-7589Ciaolsdcy [Mass/Vol]2.4 mg/dLNormal1.9-2.7 The [facility] CenterComment on above:Order Comment: post thoracotomyPerformed By: #### 68971, 30991, 78358 ####[facility] [place] [address], USAMIXED VENOUS BLOOD GAS W/COOXon 51-11-9785DXBK EXCESS-1 mmol/LNormalThe [facility] Medical CenterComment on above:Performed By: #### 26349 ####[facility] [place] [address], [facility] ROSWELLCOHB1 %NormalThe [facility] Medical CenterComment on above:Performed By: #### 88100 ####[facility] [place] [address], USADELIVERY SYSTEMS NASAL CANNULANormOhioHealth Pickerington Methodist HospitalComment on above: Performed By: #### 66859 ####[facility] [place] [address], USAHCO3 (Bld) [Moles/Vol]26 mmol/LNormalThe [facility] Medical CenterComment on above:Performed By: #### 31722 ####[facility] [place] [address], UZHSAH4AjzwpbJnw [facility] CenterComment on above:Performed By: #### 79760 ####[facility] [place] [address], [place] METHB0 %NormalThe [facility] Medical CenterComment on above:Performed By: #### 92047 ####[facility] [place] [address], USAOxygen (Bld) [Partial pressure]41 mm[Hg]Nivcwt17-20Xef [facility] CenterComment on above:Performed By: #### 94938 ####[facility] [place] [address], [facility] ROS[facility]LLOxygen saturation in Blood67.6 %Zkjhmt54.0-75.0The [facility] Comment on above:Performed By: #### 58257 ####[facility] [place] [address], XZXBFP612 mkBrSqyu02-91Fnb [facility] CenterComment on above:Performed By: #### 34888 ####[facility] [place] [address], [place] pH (Bld)7.32 [pH]Normal7.31-7.41The [facility] CenterComment on above:Performed By: #### 74819 ####[facility] [place] [address], LCQGXZ43.0 g/dLNormalThe [facility] Medical CenterComment on above:Performed By: #### 31867 ####[facility] [place] [address], [facility] ROS[facility]LLOperative Reporton [id number] ReportMR#: [id number] I [facility] Pt. Name: Oswald Ochoa Room #: HIRO [id number] Discharge Date: Birthdate: 1955 OPERATIVE REPORT DATE [...] saphenous vein. 3. Interpretation of transesophageal echocardiogram. RN ENTEROSTOMAL: Pedro Luis Gill. ANESTHESIA: General with endotracheal [...] graft. The vein graft anastomosed in a qter-uy-ixsj fashion to the obtuse marginal 2 branch [...] The leg wound w (more content not included)...NormalThe [facility] Medical CenterPHOSPHORUS BLOODon 02-95-9547Ppddtqzce [Mass/Vol]2.9 mg/dLNormal 2.5-5.0The [facility] CenterComment on above:Order Comment: post thoracotomyPerformed By: #### 77576, 35377, 40769 ####[facility] [place] [address], [facility] GLUCOSE LABon 73-67-3406Wohvvuo [Mass/Vol]130 mg/qSYqvk58-450Wmu [facility] CenterComment on above:Performed By: #### 68043 ####[facility] [place] [address], [facility] ROSWELLGlucose [Mass/Vol]118 mg/dLHigh 70-100The [facility] CenterComment on above:Performed By: #### 28794 ####[facility] [place] [address], USAGlucose [Mass/Vol]101 mg/jNSfpr72-977Mzp [facility] CenterComment on above:Performed By: #### 30119 ####[facility] [place] [address], USAGlucose [Mass/Vol]96 mg/dLNormal 70-100The [facility] CenterComment on above:Performed By: #### 11044 ####[facility] [place] [address], USAGlucose [Mass/Vol]76 mg/tQAsvxzo69-493Bhe [facility] CenterComment on above:Performed By: #### 97890 ####[facility] [facility] [place] [address], USAGlucose [Mass/Vol]93 mg/dL Gfkeli79-299Tzd [facility] CenterComment on above:Performed By: #### 10834 ####[facility] [facility] [place] [address], USAGlucose [Mass/Vol]130 mg/lOCyhq94-635Okz [facility] CenterComment on above:Performed By: #### 41937 ####[facility] [facility] [place] [address], USAGlucose [Mass/Vol]130 mg/jXOumo59-799Bsx [facility] CenterComment on above:Performed By: #### 56480 ####[facility] [place] [address], USAGlucose [Mass/Vol]147 mg/sVOxro64-214Whe [facility] CenterComment on above:Performed By: #### 79668 ####[facility] [place] [address], USAGlucose [Mass/Vol] 175 mg/pKTadk22-392Htb [facility] CenterComment on above: Performed By: #### 06156 ####[facility] [place] [address], USAGlucose [Mass/Vol]190 mg/tZNuec09-512Mys [facility] CenterComment on above:Performed By: #### 83498 ####[facility] [place] [address], USAGlucose [Mass/Vol] 207 mg/vBDegh66-491Sda [facility] CenterComment on above: Performed By: #### 82664 ####[facility] [place] [address], USAGlucose [Mass/Vol]200 mg/lSJzwb80-144Ske [facility] CenterComment on above:Performed By: #### 68245 ####[facility] [place] [address], USAPORTABLE CHEST 1 VIEWon 26-52-2243UMEWJLYM CHEST 1 VIEWUnKettering Health [facility] of Rad[facility] [address] [place] [id number] Patient Name: OSWALD OCHOA : 1955 Sex: M Age: Race: White Pt. Location: [id number] Patient Status: I Ordered Date: 01/04/2022 1:00:00 [...] January 04, 2022. 0643 hours. FINDINGS: The [place]ry catheter has been withdrawn leaving a right jugular vein sheath with its tip in the SVC. Sternotomy wires and cardiomegaly remain. Pleural effusion suggested in the left costophrenic angle linear atelectasis over both hemidiaphragms. Perihilar congestive changes persist. No pneumothorax. IMPRESSION: No pneumothorax. No interval change in lung cunningham. Electronically signed: Michelle Kc. Transcribed by: [email or web address], User Resident: Electronically Signed by: MICHELLE KC @ 01/04/2022 01:25 PMNormalThe [facility] Medical CenterComment on above:Order Comment: Pneumothorax PORTABLE CHEST 1 VIEWUnKettering [facility] of Radiology [address] [place] [id number] Patient Name: OSWALD OCHOA : 1955 Sex: M Age: Race: White Pt. Location: [place] [address] Patient Status: I Ordered Date: 01/04/2022 7:00:00 [...] tube and NG tube have been removed. [place]ry catheter remains with its tip in the right main pulmonary artery. Sternotomy wires with mild cardiomegaly remain. Haziness in the left costophrenic angle suggests effusion and lower lobe consolidation. No pneumothorax identified. IMPRESSION: Left pleural effusion and lower lobe consolidation. Electronically signed: Michelle Kc. Transcribed by: [email or web address], User Resident: Electronically Signed by: MICHELLE KC @ 01/04/2022 08:12 AMNormalThe [facility] Medical CenterComment on above:Order Comment: Check Chest Tube PositionPROTHROMBIN TIMEon 73-22-3047NHZ Coag (PPP) [Relative time]1.24 {INR}High0.91-1.16The [facility] CenterComment on above:Order Comment: evaluateResult Comment: ACCCP RECOMMENDED INR FOR WARFARIN THERAPY ------- CONDITION INR PROPHYLAXIS OF VENOUS THROMBOSIS 2-3 (HIGH-RISK SURGERY) TREATMENT OF VENOUS THROMBOSIS 2-3 TREATMENT OF PULMONARY EMBOLISM 2-3 PREVENTION OF SYSTEMIC EMBOLISM: 2-3 ACUTE MYOCARDIAL INFARCTION TISSUE HEART VALVES VALVULAR HEART DISEASE ATRIAL FIBRILLATION RECURRENT SYSTEMIC EMBOLISM MECHANICAL HEART VALVE 2.5-3.5 FROM: ORAL ANTICOAGULANTS. MECHANISM OF ACTION, CLINICAL EFFECTIVENESS, AND OPTIMAL THERAPEUTIC RANGE. CHEST 1995;108:231S-246S.Performed By: #### 68736, 45531 ####[facility] [facility] [place] [address], [facility] ROS[facility]LLPT Coag (PPP) [Time]15.5 s High12.3-14.8The [facility] CenterComment on above:Order Comment: evaluateResult Comment: ALL RESULTS MUST BE INTERPRETED WITH RESPECT TO BLOOD DRAWING ARTIFACT OR DILUTION ERROR OF ANTICOAGULANT AT THE TIME OF SAMPLING.Performed By: #### 47151, 88572 ####[place] [id number] [facility].[address]*MRSA/MSSA DNA NASALon 01-03-2022*MRSA/MSSA DNA NASALClinical Report: (D) Specimen: NASAL SWAB Collected: 01/02/2022 22:13 Status: Final Last Updated: 01/03/2022 10:59 MSSA DNA (Final) Negative MRSA DNA (Final) NegativeNoBellevue HospitalComment on above:Performed By: #### 53108 ####[facility] [facility] [place] [address], [facility] ROSWELLACTIVATED CLOTTING TIMEon 69-64-4772MLVPYXBPN CLOTTING TIME0 sec Tjt97-928KwgUC Medical CenterComment on above:Performed By: #### 48388 ####[facility] [facility] [place] [address], [facility] ROSWELLACTIVATED CLOTTING [id number] pcmZbnjga10-698Itf [facility] CenterComment on above:Performed By: #### 76140 ####[place] [address] [facility] [place] [address], [facility] ROSWELLACTIVATED CLOTTING TIME 426 pjrRtgr70-524Jix [facility] CenterComment on above: Performed By: #### 95465 ####[facility] [facility] [place] [address], [facility] ROS[facility]LLACTIVATED CLOTTING [id number] aokGvqa05-878Dih [facility] CenterComment on above:Performed By: #### 71435 ####[facility] [facility] [place] [address], [facility] ROS[facility]LLACTIVATED CLOTTING [id number] szvEuyh77-290Ojj [facility] CenterComment on above:Performed By: #### 19681 ####[facility] [facility] [place] [address], [facility] ROS[facility]LLACTIVATED CLOTTING [id number] kzrIoga40-076Mbh [facility] CenterComment on above:Performed By: #### 22083 ####[facility] [facility] [place] [address], [facility] [place] ACTIVATED CLOTTING AVVC843 aquMkrf17-462Ttz [facility] Comment on above:Performed By: #### 22890 ####[facility] [facility] [place] [address], [facility] ROS[facility]LLACTIVATED CLOTTING CERS452 sec Qryetq04-524Grj [facility] CenterComment on above:Performed By: #### 47998 ####[facility] [facility] [place] [address], [facility], ROSWELLAPTBarrow Neurological Institute [id number] Coag (Bld) [Time]31.0 nFemitz42.0-35.0The [facility] CenterComment on above:Order Comment: No: Do not add to previous drawResult Comment: ALL RESULTS MUST BE INTERPRETED WITH RESPECT TO BLOOD DRAWING ARTIFACT OR DILUTION ERROR OF ANTICOAGULANT AT THE TIME OF SAMPLING. THE APTT SHOULD NOT BE USED TO MONITOR UNFRACTIONATED HEPARIN THERAPY, THIS LABORATORY NO LONGER HAS AN ESTABLISHED THERAPEUTIC RANGE BASED ON THE APTT. IT IS RECOMMENDED THAT THE UFH - HEPARIN ASSAY (ANTI-XA ACTIVITY) BE USED FOR THIS PURPOSE.Performed By: #### 37495, 17008 ####[facility] [place] [address], [facility] [place] aPTT Coag (Bld) [Time]28.9 nEemevj23.0-35.0The [facility] Medical CenterComment on above:Result Comment: ALL RESULTS MUST BE INTERPRETED WITH RESPECT TO BLOOD DRAWING ARTIFACT OR DILUTION ERROR OF ANTICOAGULANT AT THE TIME OF SAMPLING. THE APTT SHOULD NOT BE USED TO MONITOR UNFRACTIONATED HEPARIN THERAPY, THIS LABORATORY NO LONGER HAS AN ESTABLISHED THERAPEUTIC RANGE BASED ON THE APTT. IT IS RECOMMENDED THAT THE UFH - HEPARIN ASSAY (ANTI-XA ACTIVITY) BE USED FOR THIS PURPOSE.Performed By: #### 56429, 15122, 62492 ####[address] ARTERIAL BLOOD GAS WITH ICAon 27-80-4138TEHB EXCESS-4 mmol/LLow-2-3The [facility] CenterComment on above:Order Comment: Check Chest Tube Position, ON ARRIVAL TO CVUPerformed By: #### 47482 ####[place] [address] [facility] [place] [address], [facility] ROSWELLDELIVERY SYSTEMS VENTILATORNormSelect Medical Specialty [facility], Ince [facility] CenterComment on above:Order Comment: Check Chest Tube Position, ON ARRIVAL TO CVUPerformed By: #### 38843 ####[address] [place] [address], [facility] [place] NJX479 %NormalThe [facility] CenterComment on above:Order Comment: Check Chest Tube Position, ON ARRIVAL TO CVUPerformed By: #### 27797 ####[address] [place] [address], [facility] [place] HCO3 (Bld) [Moles/Vol]22 mmol/NOvmmci48-73Ods [facility] CenterComment on above:Order Comment: Check Chest Tube Position, ON ARRIVAL TO CVUPerformed By: #### 35217 ####[address] [place] [address], USAIONIZED CALCIUM1.20 mmol/LNormal1.13-1.32The [facility] CenterComment on above:Order Comment: Check Chest Tube Position, ON ARRIVAL TO CVUPerformed By: #### 64070 ####[facility] [place] [address], USAMIN WAPBFP27.1 NormalThe [facility] CenterComment on above:Order Comment: Check Chest Tube Position, ON ARRIVAL TO CVUPerformed By: #### 63043 ####[facility] [place] [address], [place] MODALITYSIMVNoBellevue HospitalComment on above:Order Comment: Check Chest Tube Position, ON ARRIVAL TO CVUPerformed By: #### 94763 ####[facility] [place] [address], [place] Oxygen (Bld) [Partial pressure]104 mm[Hg]Ffwnuo74-101Lsj [facility] CenterComment on above:Order Comment: Check Chest Tube Position, ON ARRIVAL TO CVUPerformed By: #### 10920 ####[facility] [place] [address], USAOxygen saturation in Blood96.5 % Vaixcl24.0-97.0The [facility] CenterComment on above:Order Comment: Check Chest Tube Position, ON ARRIVAL TO CVUPerformed By: #### 81638 ####[facility] [place] [address], [place] IYH051 giAxTutkmy93-50Viu [facility] CenterComment on above: Order Comment: Check Chest Tube Position, ON ARRIVAL TO CVUPerformed By: #### 51406 ####[facility] [place] [address], USAPEEP8.0 TBJ23CjjjciYnoBellevue HospitalComment on above:Order Comment: Check Chest Tube Position, ON ARRIVAL TO CVUPerformed By: #### 16473 ####[facility] [place] [address], USApH (Bld)7.33 [pH]Low7.35-7.45The [facility] Comment on above:Order Comment: Check Chest Tube Position, ON ARRIVAL TO CVU Performed By: #### 40408 ####[facility] [place] [address], USAPRESSURE LVNUPWS97WjqrosKpaBellevue HospitalComment on above:Order Comment: Check Chest Tube Position, ON ARRIVAL TO CVUPerformed By: #### 83594 ####[facility] [place] [address], USARespiratory rate10 /minNoBellevue HospitalComment on above:Order Comment: Check Chest Tube Position, ON ARRIVAL TO CVUPerformed By: #### 47706 ####[facility] [place] [address], USATIDAL VOLUME (VT) TR332OgddhdEczBellevue HospitalComment on above:Order Comment: Check Chest Tube Position, ON ARRIVAL TO CVUPerformed By: #### 51633 ####[facility] [place] [address], [place] BASE EXCESS-4 mmol/LLow-2-3The [facility] CenterComment on above:Performed By: #### 48066 ####[facility] [place] [address], USADELIVERY SYSTEMSmvNoBellevue HospitalComment on above:Performed By: #### 86489 ####[facility] [place] [address], GCUAUA974 %NormalThe [facility] CenterComment on above:Performed By: #### 21714 ####[facility] [place] [address], [facility] HCO3 (Bld) [Moles/Vol]23 mmol/MXwgmvu87-61Lzb [facility] CenterComment on above:Performed By: #### 64432 ####[facility] [place] [address], USAIONIZED CALCIUM1.20 mmol/LNormal 1.13-1.32The [facility] CenterComment on above:Performed By: #### 66562 ####[facility] [facility] [place] [address], USAMIN VOLUME8.2NormalThe [facility] CenterComment on above:Performed By: #### 81118 ####[facility] [place] [address], [facility] ROSWELLMODALITYSIMVNormalThe [facility] CenterComment on above:Performed By: #### 02110 ####[facility] [place] [address], [facility] ROSWELLOxygen (Bld) [Partial pressure]94 mm[Hg]Drdlrx65-872Pbd [facility] CenterComment on above:Performed By: #### 88355 ####[facility] [facility] [place] [address], [facility] ROSWELLOxygen saturation in Blood99 %Hohkjh28-049Oew [facility] CenterComment on above:Performed By: #### 59313 ####[facility] [facility] [place] [address], [facility] Oxygen saturation in Blood96.3 %Dbpfks17.0-97.0The [facility] CenterComment on above:Performed By: #### 30400 ####[facility] [place] [address], GOYNPY724 zkGjLixs29-92Vhr [facility] CenterComment on above:Performed By: #### 67705 ####[facility] [place] [address], [place] PEEP8.0 NHP17FantnjKqxOhioHealth Pickerington Methodist HospitalComment on above: Performed By: #### 96531 ####[facility] [place] [address], USApH (Bld)7.29 [pH]Low7.35-7.45The [facility] CenterComment on above:Performed By: #### 54859 ####[facility] [place] [address], USAPRESSURE YKVKTJQ69Iqppck The [facility] CenterComment on above:Performed By: #### 19021 ####[facility] [place] [address], [place] Respiratory rate14 /minNormOhioHealth Pickerington Methodist HospitalComment on above:Performed By: #### 66841 ####[facility] [place] [address], USATIDAL VOLUME (VT) NA675OpunloRvlBellevue HospitalComment on above:Performed By: #### 37095 ####[facility] [place] [address], USABASE EXCESS-6 mmol/LLow-2-3The [facility] CenterComment on above:Order Comment: evaluatePerformed By: #### 34435 ####[facility] [place] [address], USADELIVERY SYSTEMSMVNoBellevue HospitalComment on above:Order Comment: evaluate Performed By: #### 27140 ####[facility] [place] [address], [id number] %NormalThe [facility] Center Comment on above:Order Comment: evaluatePerformed By: #### [id number] ####[facility] [place] [address], USAHCO3 (Bld) [Moles/Vol]21 mmol/HWcuwbb11-58Jjz Main Campus Medical CenterComment on above:Order Comment: evaluatePerformed By: #### [id number] ####[facility] [place] [address], USAIONIZED CALCIUM1.14 mmol/L Normal1.13-1.32The [facility] Campus Medical CenterComment on above:Order Comment: evaluatePerformed By: #### [id number] ####[facility] [place] [address], USAMIN VOLUME8.9NoBellevue HospitalComment on above:Order Comment: evaluatePerformed By: #### 57045 ####[facility] [place] [address], USAMODALITYSIMVNoBellevue HospitalComment on above:Order Comment: evaluatePerformed By: #### 61541 ####[facility] [place] [address], USAOxygen (Bld) [Partial pressure]133 mm[Hg]Critically usmi08-806Xaf [facility] Comment on above:Order Comment: evaluatePerformed By: #### 72706 ####[facility] [place] [address], USAOxygen saturation in Blood97.4 %High94.0-97.0The [facility] Comment on above:Order Comment: evaluatePerformed By: #### 64143 ####[facility] [place] [address], GCUYYQ118 mmHg Nqjnvo63-29Uhf [facility] CenterComment on above:Order Comment: evaluatePerformed By: #### 55602 ####[facility] [place] [address], USAPEEP8.0 GMW46FqtcahZavBarney Children's Medical CenterComment on above:Order Comment: evaluatePerformed By: #### 72749 ####[facility] [place] [address], USApH (Bld)7.30 [pH]Low7.35-7.45The [facility] Comment on above:Order Comment: evaluatePerformed By: #### 48213 ####[facility] [place] [address], USAPRESSURE SUPPORT 10Barney Children's Medical CenterComment on above:Order Comment: evaluatePerformed By: #### 54753 ####[facility] [facility] [place] [address], USARespiratory rate14 /minNoBellevue HospitalComment on above:Order Comment: evaluatePerformed By: #### 58702 ####[facility] [place] [address], USATIDAL VOLUME (VT) RU050VhgppyJkyBarney Children's Medical Center Comment on above:Order Comment: evaluatePerformed By: #### 60733 ####[facility] [place] [address], USABASIC METABOLIC PANELon 25-89-4726Yepgsga [Mass/Vol]8.6 mg/dLNormal8.6-10.3The [facility] Medical CenterComment on above:Order Comment: No: Do not add to previous drawPerformed By: #### 33616, 06142, 42726 ####[facility] [place] [address], USAChloride [Moles/Vol]108 mmol/LHigh 98-107The [facility] Medical CenterComment on above:Order Comment: No: Do not add to previous drawPerformed By: #### 86241, 72084, 02792 ####[facility] [place] [address], [place] CO2 [Moles/Vol]22 mmol/PGlmjow81-38Zxl [facility] Comment on above:Order Comment: No: Do not add to previous drawPerformed By: #### 65357, 07431, 90540 ####[facility] [place] [address], USACreatinine [Mass/Vol]0.97 mg/dLNormal0.70-1.30The [facility] Medical CenterComment on above:Order Comment: No: Do not add to previous drawPerformed By: #### 98637, 15487, 64377 ####[facility] [place] [address], USAGlucose [Mass/Vol] 177 mg/lOKbql77-584Dav [facility] CenterComment on above:Order Comment: No: Do not add to previous drawPerformed By: #### 18098, 68836, 85933 ####[facility] [place] [address], [place] Potassium [Moles/Vol]4.8 mmol/LNormal3.5-5.1The [facility] Medical CenterComment on above:Order Comment: No: Do not add to previous drawPerformed By: #### 37172, 06052, 66640 ####[facility] [place] [address], USAUrea nitrogen [Mass/Vol]12 mg/dLNormal7-25The [facility] Medical CenterComment on above:Order Comment: No: Do not add to previous drawPerformed By: #### 19513, 28196, 12049 ####[facility] [place] [address], USACalcium [Mass/Vol] 8.1 mg/dLLow8.6-10.3The [facility] Medical CenterComment on above: Performed By: #### 50406, 93334 ####[facility] [place] [address], USAChloride [Moles/Vol]107 mmol/XUifxvw17-374Kap [facility] CenterComment on above:Performed By: #### 20191, 64784 ####[facility] [place] [address], USACO2 [Moles/Vol]23 mmol/QOfgwnl08-31Cun [facility] CenterComment on above:Performed By: #### 47461, 37115 ####[facility] [place] [address], USACreatinine [Mass/Vol]1.02 mg/dLNormal0.70-1.30The [facility] CenterComment on above: Performed By: #### 71509, 86273 ####[facility] [place] [address], USAGFR/1.73 sq M.predicted among blacks MDRD (S/P/Bld) [Vol rate/Area]mL/min/{1.73_m2}Normal>60The [facility] Medical CenterComment on above:Order Comment: No: Do not add to previous draw Performed By: #### 86876, 15778, 57830 ####[facility] [place] [address], USAPerformed By: #### 47482, 10269 ####[facility] [place] [address], [place] GFR/1.73 sq M.predicted among non-blacks MDRD (S/P/Bld) [Vol rate/Area] mL/min/{1.73_m2}Normal>60The [facility] CenterComment on above:Order Comment: No: Do not add to previous drawPerformed By: #### 55107, 34935, 90738 ####[facility] [place] [address], USAPerformed By: #### 24155, 83574 ####[facility] [place] [address], USAGlucose [Mass/Vol]124 mg/dLHigh 70-100The [facility] Medical CenterComment on above:Performed By: #### 37183, 22644 ####[facility] [place], [place] [address]E[place] [address], USAPotassium [Moles/Vol]3.8 mmol/LNormal3.5-5.1The [facility] Medical CenterComment on above:Performed By: #### 74624, 54307 ####[place] [address] [place] [address], [place] Sodium [Moles/Vol]138 mmol/YZpyxos466-031Yhu [facility] Comment on above:Performed By: #### 57733, 60975 ####[facility] [facility] [place] [address], USAUrea nitrogen [Mass/Vol]11 mg/dLNormal7-25The [facility] CenterComment on above: Performed By: #### 29285, 32140 ####[address] [place] [address], USASodium [Moles/Vol]139 mmol/YCduoxh759-397Pxr [facility] CenterComment on above:Order Comment: No: Do not add to previous drawPerformed By: #### 19396, 15486, 03781 ####[address] [place] [address], USAPerformed By: #### 37261 ####[address] [place] [address], USACBC COMPLETE BLOOD COUNTon 23-28-5113Leolppdrwhy distribution width (RBC) [Ratio]12.7 %Dzgmvf32.5-15.0The [facility] Medical CenterComment on above:Order Comment: evaluatePerformed By: #### 35561 ####[facility] [facility] [place] [address], [facility], ROSWELLHematocrit (Bld) [Volume fraction]30.8 %Low39.0-50.0The [facility] Comment on above:Order Comment: evaluatePerformed By: #### 13877 ####[facility] [facility] [place] [address], [facility], ROSWELLHemoglobin (Bld) [Mass/Vol]10.9 g/dLLow13.0-17.0The [facility] CenterComment on above:Order Comment: evaluatePerformed By: #### 24735 ####[facility] [facility] [place] [address], [facility]ULPHURH (RBC) [Entitic mass] 30.1 qmPjjkxk25.0-33.0The [facility] CenterComment on above: Order Comment: evaluatePerformed By: #### 02053 ####[facility] [facility] [place] [place] [address], [facility] SULPHURHC (RBC) [Mass/Vol]35.4 g/dLHigh 32.0-35.0The [facility] CenterComment on above:Order Comment: evaluatePerformed By: #### 52861 ####[facility] [facility] [place] [address], [facility] SULPHURV (RBC) [Entitic vol]85.1 yBWfqpui40.0-98.0 The [facility] CenterComment on above:Order Comment: evaluate Performed By: #### 93439 ####[facility] [facility] [place] [address], USAPLAT FSV252 10*3/cGEdy037-438Moo [facility] CenterComment on above:Order Comment: evaluatePerformed By: #### 31513 ####[facility] [facility] [place] [address], [facility] [place] RBC (Bld) [#/Vol]3.62 10*6/uLLow4.20-5.70The [facility] Comment on above:Order Comment: evaluatePerformed By: #### 89207 ####[facility] [place] [address].[place] [address], [facility], ROSWELLWBC (Bld) [#/Vol]14.29 10*3/uLHigh4.00-10.60The [facility] CenterComment on above:Order Comment: evaluatePerformed By: #### 20961 ####[address] [place] [address], [facility], ROSWELLErythrocyte distribution width (RBC) [Ratio]12.6 %Gsmkyt29.5-15.0The [facility] CenterComment on above:Performed By: #### 19059 ####[address] [place] [address], [facility] ROSWELLHematocrit (Bld) [Volume fraction]28.9 %Low39.0-50.0The [facility] Medical CenterComment on above:Performed By: #### 39562 ####[address] [place] [address], [facility] ROSWELLHemoglobin (Bld) [Mass/Vol]10.3 g/dLLow 13.0-17.0The [facility] CenterComment on above:Performed By: #### 15796 ####[place] [address] [facility] [place] [address], [facility], ROSWELLMCH (RBC) [Entitic mass]30.3 ypExsqtc68.0-33.0The [facility] CenterComment on above:Performed By: #### 56366 ####[address] [place] [address], [facility] ROSWELLMCHC (RBC) [Mass/Vol]35.6 g/aNJezk78.0-35.0The [facility] CenterComment on above: Performed By: #### 69142 ####[facility] [facility] [place] [address], [facility] ROSWELLMCV (RBC) [Entitic vol]85.0 pMXtdfre46.0-98.0The [facility] CenterComment on above:Performed By: #### 67348 ####[address] [place] [address], [facility] [place] Nucleated RBC/100 WBC (Bld) [Ratio]0 %Normal0-0The [facility] CenterComment on above:Order Comment: evaluatePerformed By: #### 41169 ####[address] [place] [address], [facility] [place] PLAT OEX374 10*3/eWDys830-305Tqf [facility] CenterComment on above:Performed By: #### 99380 ####[address] [place] [address], [facility], ROSWELLRBC (Bld) [#/Vol]3.40 10*6/uLLow4.20-5.70The [facility] CenterComment on above:Performed By: #### 73172 ####[address] [place] [address], [facility] [place] WBC (Bld) [#/Vol]13.69 10*3/uLHigh4.00-10.60The [facility] CenterComment on above:Performed By: #### 79578 ####[address] [place] [address], [facility], ROSWELLFIBRINOGENon 22-06-8543VESEKGLKDA 168 mg/sNMglpeg846-623Bav [facility] CenterComment on above: Performed By: #### 59966, 01905, 36892 ####[address] [place] [address], [facility], ROSWELLLACTATE BLOODon 65-26-8858Ootsrzq [Moles/Vol]1.4 mmol/LNormal.5-2.2The [facility] CenterComment on above:Order Comment: No: Do not add to previous drawPerformed By: #### 10543 ####[facility] [place] [address], [facility] [place] MAGNESIUM BLOODon 40-51-4354Kbmfggwzh [Mass/Vol]2.4 mg/dLNormal1.9-2.7The [facility] CenterComment on above:Order Comment: No: Do not add to previous drawPerformed By: #### 32110, 27636, 99190 ####[facility] [facility] [place] [address], [facility] ROSWELLMagnesium [Mass/Vol]2.9 mg/dLHigh1.9-2.7The [facility] CenterComment on above:Performed By: #### 21588, 25476 ####[facility] [place] [address].[place] [address], [facility], ROSWELLPERFUSION BLOOD PANELon 01-03-2022 BASE EXCESS-4.0 mmol/LLow-2.0-3.0The [facility] CenterComment on above:Performed By: #### 03946 ####[address] [place] [address], [facility] ROSWELLGlucose [Mass/Vol]129 mg/hIEpgd91-497Jnw [facility] CenterComment on above:Performed By: #### 47923 ####[facility] [facility] [place] [address], [facility] [place] Hematocrit (Bld) [Volume fraction]29 %Nvz86-98Nna [facility] CenterComment on above:Performed By: #### 52027 ####[facility] [place] [address].[place] [address], [facility] ROSWELLHemoglobin (Bld) [Mass/Vol]9.9 g/dLLow12.0-17.0The [facility] CenterComment on above: Performed By: #### 40557 ####[facility] [place] [address], [facility], ROSWELLIONIZED CALCIUM1.22 mmol/LNormal1.12-1.32The [facility] CenterComment on above:Performed By: #### 76215 ####[place] [address] [facility] [place] [address], [facility] [place] Oxygen (Bld) [Partial pressure]115.0 mm[Hg]High80.0-105.0The [facility] CenterComment on above:Performed By: #### 33928 ####[place] [address] [facility] [place] [address], THJWEH567.3 mmHgHigh 35.0-45.0The [facility] CenterComment on above:Performed By: #### 50613 ####[address] [place] [address], [facility] ROSWELLpH (Bld)7.29 [pH]Low7.35-7.45The [facility] Comment on above:Performed By: #### 27118 ####[address] [place] [address], [facility] ROSWELLPotassium [Moles/Vol]3.8 mmol/L Normal3.5-4.9The [facility] CenterComment on above:Performed By: #### 48350 ####[address] [place] [address], [facility] ROSWELLSodium [Moles/Vol]141 mmol/ZVyuorb001-417Wgs [facility] CenterComment on above:Performed By: #### 34292 ####[address] [place] [address], [facility] ROSWELLBASE EXCESS-3.0 mmol/LLow -2.0-3.0The [facility] CenterComment on above:Performed By: #### 96018 ####[address] [place] [address], [facility] ROSWELLGlucose [Mass/Vol]120 mg/uQGayn46-205Iqo [facility] CenterComment on above:Performed By: #### 05806 ####[place] [address] [place] [address], [facility], ROSWELLHematocrit (Bld) [Volume fraction]27 % [facility] Medical CenterComment on above: Performed By: #### 52628 ####[place] [address] [place] [address], [facility] ROSWELLHemoglobin (Bld) [Mass/Vol]9.2 g/dLLow12.0-17.0The [facility] CenterComment on above:Performed By: #### 23525 ####[address] [place] [address], [facility] [place] IONIZED CALCIUM1.27 mmol/LNormal1.12-1.32The [facility] Comment on above:Performed By: #### 50022 ####[place] [address] [place] [address], USAOxygen (Bld) [Partial pressure] 215.0 mm[Hg]High80.0-105.0The [facility] CenterComment on above:Performed By: #### 56080 ####[address] [place] [address], AFYPTR684.6 quRyQhvnyd31.0-45.0The [facility] CenterComment on above:Performed By: #### 68756 ####[place] [address] [place] [address], USApH (Bld)7.32 [pH]Low7.35-7.45The [facility] CenterComment on above: Performed By: #### 51842 ####[address] [place] [address], USAPotassium [Moles/Vol]3.9 mmol/LNormal3.5-4.9The [facility] CenterComment on above:Performed By: #### 94084 ####[facility] [place] [address], [facility] [place] Sodium [Moles/Vol]141 mmol/ODmdfgh812-155Wsh [facility] Comment on above:Performed By: #### 29552 ####[facility] [facility] [place] [address], [facility] ROSWELLBASE EXCESS1.0 mmol/LNormal -2.0-3.0The [facility] CenterComment on above:Performed By: #### 20530 ####[facility] [facility] [place] [address], [facility], ROSWELLGlucose [Mass/Vol]125 mg/cBGljg38-579Aqr [facility] CenterComment on above:Performed By: #### 68962 ####[facility] [facility] [place] [address], [facility] ROSWELLHematocrit (Bld) [Volume fraction]28 %Tft33-27Cxb [facility] CenterComment on above: Performed By: #### 56688 ####[facility] [facility] [place] [address], [facility], ROSWELLHemoglobin (Bld) [Mass/Vol]9.5 g/dLLow12.0-17.0The [facility] CenterComment on above:Performed By: #### 13589 ####[facility] [facility] [place] [address], [facility] [place] IONIZED CALCIUM1.73 mmol/LCritically high1.12-1.32The [facility] CenterComment on above:Performed By: #### 68816 ####[facility] [place] [address].[place] [address], [facility] ROSWELLOxygen (Bld) [Partial pressure]392.0 mm[Hg]High80.0-105.0The [facility] Comment on above:Performed By: #### 25505 ####[facility] [place] [address], ZOAMML890.7 dzLfSavgcj16.0-45.0The [facility] CenterComment on above:Performed By: #### 91180 ####[facility] [facility] [place] [address], [facility] [place] pH (Bld)7.39 [pH]Normal7.35-7.45The [facility] CenterComment on above:Performed By: #### 10886 ####[place] [address] [facility] [place] [address], [facility] ROSWELLPotassium [Moles/Vol]4.4 mmol/LNormal3.5-4.9 The [facility] CenterComment on above:Performed By: #### 83649 ####[facility] [facility] [place] [address], [facility] [place] Sodium [Moles/Vol]137 mmol/WVov383-792Abx [facility] Comment on above:Performed By: #### 32286 ####[facility] [facility] [place] [address], USABASE EXCESS2.0 mmol/LNormal -2.0-3.0The [facility] CenterComment on above:Performed By: #### 18312 ####[facility] [facility] [place] [address], [facility] ROSWELLGlucose [Mass/Vol]124 mg/iPNlub18-229Vzo [facility] CenterComment on above:Performed By: #### 78370 ####[facility] [facility] [place] [address], [facility], ROSWELLHematocrit (Bld) [Volume fraction]30 %Pax17-78Vzb [facility] CenterComment on above: Performed By: #### 89666 ####[facility] [place] [address], [facility] ROSWELLHemoglobin (Bld) [Mass/Vol]10.2 g/dLLow12.0-17.0The [facility] CenterComment on above:Performed By: #### 55138 ####[address] [place] [address], [facility] [place] IONIZED CALCIUM1.14 mmol/LNormal1.12-1.32The [facility] Comment on above:Performed By: #### 85421 ####[place] [address] [facility] [place] [address], [facility], ROSWELLOxygen (Bld) [Partial pressure] 333.0 mm[Hg]High80.0-105.0The [facility] CenterComment on above:Performed By: #### 37017 ####[address] [place] [address], JRMPYN646.5 fuGnRbwteu52.0-45.0The [facility] CenterComment on above:Performed By: #### 37293 ####[address] [place] [address], [facility], ROSWELLpH (Bld)7.41 [pH]Normal7.35-7.45The [facility] CenterComment on above: Performed By: #### 29309 ####[address] [place] [address], [facility], ROSWELLPotassium [Moles/Vol]4.3 mmol/LNormal3.5-4.9The [facility] CenterComment on above:Performed By: #### 77116 ####[address] [place] [address], [facility] [place] Sodium [Moles/Vol]138 mmol/NEibazq628-470Kub [facility] Comment on above:Performed By: #### 43523 ####[place] [address] [place] [address], USABASE EXCESS1.0 mmol/LNormal -2.0-3.0The [facility] CenterComment on above:Performed By: #### 84362 ####[facility] [place] [address], USAGlucose [Mass/Vol]127 mg/qHXfjd68-279Imy [facility] CenterComment on above:Performed By: #### 73276 ####[facility] [place] [address], [facility] ROSWELLHematocrit (Bld) [Volume fraction]31 %Mas81-32Kas [facility] CenterComment on above: Performed By: #### 74914 ####[facility] [place] [address], [facility] ROSWELLHemoglobin (Bld) [Mass/Vol]10.5 g/dLLow12.0-17.0The [facility] CenterComment on above:Performed By: #### 02561 ####[facility] [place] [address], [place] IONIZED CALCIUM1.09 mmol/LLow1.12-1.32The [facility] Comment on above:Performed By: #### 69463 ####[facility] [place] [address], USAOxygen (Bld) [Partial pressure] 351.0 mm[Hg]High80.0-105.0The [facility] Medical CenterComment on above:Performed By: #### 41308 ####[facility] [address], VMFASP533.6 ltRrVjnqat86.0-45.0The [facility] CenterComment on above:Performed By: #### 67146 ####[facility] [place] [address], USApH (Bld)7.43 [pH]Normal7.35-7.45The [facility] CenterComment on above: Performed By: #### 23225 ####[facility] [place] [address], [facility] ROSWELLPotassium [Moles/Vol]4.4 mmol/LNormal3.5-4.9The [facility] CenterComment on above:Performed By: #### 00240 ####[facility] [facility] [place] [place] [address], [facility] [place] Sodium [Moles/Vol]138 mmol/BHtturv524-150Efv [facility] Comment on above:Performed By: #### 10852 ####[facility] [place] [address], [facility] ROS[place]LLBASE EXCESS4.0 mmol/LHigh-2.0-3.0 The [facility] Campus Medical CenterComment on above:Performed By: #### [id number] ####[facility] [place] [address].[place] [address], [facility] [place] Glucose [Mass/Vol]117 mg/oEBxwv26-223Pva [facility] Comment on above:Performed By: #### [id number] ####[facility] [place] [address], [facility] [place]WELLHematocrit (Bld) [Volume fraction] 29 %Stn19-41Kks [facility] Medical CenterComment on above:Performed By: #### [id number] ####[facility] [place] [address], [facility] [place]WELLHemoglobin (Bld) [Mass/Vol]9.9 g/dLLow12.0-17.0The [facility] Medical CenterComment on above:Performed By: #### [id number] ####[address] [place] [address], [facility] ROSWELLIONIZED CALCIUM 1.02 mmol/LLow1.12-1.32The [facility] Medical CenterComment on above: Performed By: #### [id number] ####[facility] [place] [address], [facility] ROSWELLOxygen (Bld) [Partial pressure]531.0 mm[Hg]High 80.0-105.0The [facility] Campus Medical CenterComment on above:Performed By: #### [id number] ####[facility] [place] [address], PZGGOU840.7 wdZfGtqjir70.0-45.0[facility] Comment on above:Performed By: #### [id number] ####[place] [id number] [place] [address], [facility] ROSWELLpH (Bld)7.43 [pH]Normal7.35-7.45 The [facility] Campus Medical CenterComment on above:Performed By: #### [id number] ####[address] [place] [address], [facility] [place] Potassium [Moles/Vol]4.1 mmol/LNormal3.5-4.9The Main Campus Medical CenterComment on above:Performed By: #### 67689 ####[address] [place] [address], [facility], ROSWELLBASE EXCESS0.0 mmol/LNormal -2.0-3.0The [facility] Campus Medical CenterComment on above:Performed By: #### 04201 ####[facility] [place] [address], [facility] ROSWELLGlucose [Mass/Vol]108 mg/uNPlwp12-911Gec [facility] Medical CenterComment on above:Performed By: #### 04822 ####[address] [place] [address], [facility] ROSWELLHematocrit (Bld) [Volume fraction]27 %Tzx48-33Oxa [facility] Medical CenterComment on above: Performed By: #### 03308 ####[address] [place] [address], [facility] ROSWELLHemoglobin (Bld) [Mass/Vol]9.2 g/dLLow12.0-17.0The [facility] Medical CenterComment on above:Performed By: #### 93806 ####[facility] [facility] [place] [address], [facility] [place] IONIZED CALCIUM1.04 mmol/LLow1.12-1.32The [facility] Comment on above:Performed By: #### 99843 ####[facility] [facility] [place] [address], [facility] ROSWELLOxygen (Bld) [Partial pressure] 46.0 mm[Hg]NormalThe Main Campus Medical CenterComment on above: Performed By: #### 61906 ####[address] [place] [address], EQLCHF954.8 nlPrJoblvc54.0-51.0The [facility] Medical CenterComment on above:Performed By: #### 60676 ####[address] [place] [address], [facility] ROSWELLpH (Bld)7.36 [pH]Normal 7.31-7.41The [facility] Campus Medical CenterComment on above:Performed By: #### 69392 ####[address] [place] [address], USAPotassium [Moles/Vol]4.5 mmol/LNormal3.5-4.9The [facility] Medical CenterComment on above:Performed By: #### 09603 ####[address] [place] [address], USASodium [Moles/Vol]140 mmol/TYgtawd401-730Fqg [facility] Medical CenterComment on above: Performed By: #### 18919 ####[address] [place] [address], USABASE EXCESS-1.0 mmol/LNormal-2.0-3.0The [facility] Campus Medical CenterComment on above:Performed By: #### 42989 ####[facility] [place] [address], [facility] ROSWELLGlucose [Mass/Vol] 123 mg/fILyif52-007Zku [facility] Medical CenterComment on above: Performed By: #### 10361 ####[facility] [facility] [place] [address], [facility] ROSWELLHematocrit (Bld) [Volume fraction]38 %Ehvqxl62-61Lrz [facility] Medical CenterComment on above:Performed By: #### 64648 ####[address] [place] [address], [facility] [place] Hemoglobin (Bld) [Mass/Vol]12.9 g/bLXsmqks19.0-17.0The [facility] Medical CenterComment on above:Performed By: #### 57852 ####[place] [address] [facility] [place] [address], [facility], ROSWELLIONIZED CALCIUM1.27 mmol/LNormal1.12-1.32The [facility] Medical CenterComment on above: Performed By: #### 55837 ####[address] [place] [address], [facility] ROSWELLOxygen (Bld) [Partial pressure]146.0 mm[Hg]High 80.0-105.0The [facility] Medical CenterComment on above:Performed By: #### 08854 ####[address] [place] [address], QRORTI136.8 vnOdEord17.0-45.0The [facility] Comment on above:Performed By: #### 61193 ####[place] [address] [facility] [place] [address], [facility] ROSWELLpH (Bld)7.33 [pH]Low7.35-7.45The [facility] Medical CenterComment on above:Performed By: #### 19739 ####[facility] [facility] [place] [address], [facility] [place] Potassium [Moles/Vol]3.8 mmol/LNormal3.5-4.9The [facility] Medical CenterComment on above:Performed By: #### 59622 ####[address] [place] [address], [facility] ROSWELLSodium [Moles/Vol]141 mmol/L Wwwbsd750-531Rxm [facility] Medical CenterComment on above:Performed By: #### 35829 ####[address] [place] [address], [facility] ROSWELLBASE EXCESS0.0 mmol/LNormal-2.0-3.0The [facility] Medical CenterComment on above:Performed By: #### 18708 ####[address] [place] [address], [facility] ROSWELLGlucose [Mass/Vol]130 mg/uFYjrc73-209Fgu [facility] CenterComment on above:Performed By: #### 29236 ####[address] [place] [address], [facility] ROSWELLHematocrit (Bld) [Volume fraction]42 %Yqquws32-10Vvr [facility] CenterComment on above:Performed By: #### 37730 ####[address] [place] [address], [facility] [place] Hemoglobin (Bld) [Mass/Vol]14.3 g/wDQxyzic01.0-17.0The [facility] Medical CenterComment on above:Performed By: #### 23041 ####[place] [address], [facility] ROSWELLIONIZED CALCIUM1.30 mmol/LNormal1.12-1.32The [facility] Medical CenterComment on above: Performed By: #### 44550 ####[facility] [place] [place] [address], [facility] ROSWELLOxygen (Bld) [Partial pressure]218.0 mm[Hg]High 80.0-105.0The [facility] Medical CenterComment on above:Performed By: #### 68650 ####[facility] [place] [address], PDABTG661.5 qcTaHgnpaa68.0-45.0The [facility] Comment on above:Performed By: #### 14133 ####[facility] [place] [place] [address], [facility] ROSWELLpH (Bld)7.38 [pH]Normal7.35-7.45 The [facility] Medical CenterComment on above:Performed By: #### 56768 ####[address] [place] [address], [facility] [place] Potassium [Moles/Vol]3.8 mmol/LNormal3.5-4.9The [facility] Medical CenterComment on above:Performed By: #### 12803 ####[place] [address] [address] [facility] [place] [address], [facility] ROSWELLSodium [Moles/Vol]141 mmol/L Qixcao730-077Lku [facility] CenterComment on above:Performed By: #### 56708 ####[address] [facility] [place] [address], [facility], ROSWELLPHOSPHORUS BLOODon 44-68-3241Wovrcqeqi [Mass/Vol]3.4 mg/dLNormal 2.5-5.0The [facility] Medical CenterComment on above:Order Comment: No: Do not add to previous drawPerformed By: #### 37794, 80899, 53750 ####[address] [place] [address], [facility] [place] POC GLUCOSE LABon 44-30-8183Bcpgdiv [Mass/Vol]156 mg/wDFygp73-093Wej [facility] Medical CenterComment on above:Performed By: #### 71163 ####[facility] [place] [address], USAGlucose [Mass/Vol]160 mg/vGCbax99-239Ayq [facility] Medical CenterComment on above:Performed By: #### 99847 ####[facility] [facility] [place] [place] [address], USAGlucose [Mass/Vol]146 mg/sBPmrw01-905Ake [facility] Medical CenterComment on above:Performed By: #### 14745 ####[facility] [place] [address], [place] Glucose [Mass/Vol]135 mg/eQJwas26-976Ltt [facility] Comment on above:Performed By: #### 44167 ####[facility] [facility] [place] [address], USAGlucose [Mass/Vol]136 mg/dLHigh 70-100The [facility] Medical CenterComment on above:Performed By: #### 20115 ####[facility] [facility] [place] [address], USAPORTABLE CHEST 1 VIEWon 80-77-4234HZNVFMHA CHEST 1 VIEWUnKettering Health [facility] of Rad[facility] [address] [place] [address] Patient Name: OSWALD OCHOA : 1955 Sex: M Age: Race: White Pt. Location: [place] [address] Patient Status: I Ordered Date: 01/03/2022 4:40:00 [...] AP(PA) view was obtained. COMPARISON: None FINDINGS: [place] catheter on the right tip in superior [...] lobe Electronically signed: Tang Pino. Transcribed by: [email or web address], User Resident: Electronically Signed by: TANG PINO @ 01/03/2022 06:07 PMNormalThe Main Campus Medical CenterComment on above:Order Comment: Check Chest Tube Position, ON ARRIVAL TO CVUPROTHROMBIN TIMEon 97-42-5781THH Coag (PPP) [Relative time]1.28 {INR}High0.91-1.16The [facility] Comment on above:Order Comment: No: Do not add to previous drawResult Comment: ACCCP RECOMMENDED INR FOR WARFARIN THERAPY ------- CONDITION INR PROPHYLAXIS OF VENOUS THROMBOSIS 2-3 (HIGH-RISK SURGERY) TREATMENT OF VENOUS THROMBOSIS 2-3 TREATMENT OF PULMONARY EMBOLISM 2-3 PREVENTION OF SYSTEMIC EMBOLISM: 2-3 ACUTE MYOCARDIAL INFARCTION TISSUE HEART VALVES VALVULAR HEART DISEASE ATRIAL FIBRILLATION RECURRENT SYSTEMIC EMBOLISM MECHANICAL HEART VALVE 2.5-3.5 FROM: ORAL ANTICOAGULANTS. MECHANISM OF ACTION, CLINICAL EFFECTIVENESS, AND OPTIMAL THERAPEUTIC RANGE. CHEST 1995;108:231S-246S.Performed By: #### 44082, 39758 ####[facility] [facility] [place] [address], USAPT Coag (PPP) [Time]15.9 s High12.3-14.8The [facility] Medical CenterComment on above:Order Comment: No: Do not add to previous drawResult Comment: ALL RESULTS MUST BE INTERPRETED WITH RESPECT TO BLOOD DRAWING ARTIFACT OR DILUTION ERROR OF ANTICOAGULANT AT THE TIME OF SAMPLING.Performed By: #### 37492, 04458 ####[facility] [facility] [place] [address], USAINR Coag (PPP) [Relative time]1.45 {INR}High0.91-1.16The [facility] Medical CenterComment on above:Result Comment: ACCCP RECOMMENDED INR FOR WARFARIN THERAPY ------- CONDITION INR PROPHYLAXIS OF VENOUS THROMBOSIS 2-3 (HIGH-RISK SURGERY) TREATMENT OF VENOUS THROMBOSIS 2-3 TREATMENT OF PULMONARY EMBOLISM 2-3 PREVENTION OF SYSTEMIC EMBOLISM: 2-3 ACUTE MYOCARDIAL INFARCTION TISSUE HEART VALVES VALVULAR HEART DISEASE ATRIAL FIBRILLATION RECURRENT SYSTEMIC EMBOLISM MECHANICAL HEART VALVE 2.5-3.5 FROM: ORAL ANTICOAGULANTS. MECHANISM OF ACTION, CLINICAL EFFECTIVENESS, AND OPTIMAL THERAPEUTIC RANGE. CHEST 1995;108:231S-246S.Performed By: #### 63782, 59924, 70870 ####[facility] [place] [address], USAPT Coag (PPP) [Time]17.5 sHigh12.3-14.8The [facility] Medical CenterComment on above:Result Comment: ALL RESULTS MUST BE INTERPRETED WITH RESPECT TO BLOOD DRAWING ARTIFACT OR DILUTION ERROR OF ANTICOAGULANT AT THE TIME OF SAMPLING.Performed By: #### 39035, 85772, 27293 ####[facility] [place] [address], USARBC'S 2 UNITSon 82-80-3340PBOAZMLOMP INTERP 1COMPNormal UC Medical CenterComment on above:Performed By: #### 51396 ####[facility] [place] [address], [place] CROSSMATCH INTERP 2COMPNoBellevue HospitalComment on above:Performed By: #### 80186 ####[facility] [place] [address], USAPRODUCT CODE [id number] HospitalComment on above:Performed By: #### 15227 ####[facility] [place] [address], USAPRODUCT CODE 2 [id number] HospitalComment on above:Performed By: #### 71708 ####[facility] [place] [address], USAPRODUCT STATUS 1RENoBellevue Hospital Comment on above:Result Comment: Result changed by IF on 01/03/2022 12:35. The previous value was XM. Result changed by IF on 01/03/2022 17:59. The previous value was IS. Result changed by IF on 01/06/2022 07:17. The previous value was XM.Performed By: #### 57529 ####[facility] [place] [address], USAPRODUCT STATUS 2RClinton [facility] Comment on above:Result Comment: Result changed by IF on 01/03/2022 12:35. The previous value was XM. Result changed by IF on 01/03/2022 17:59. The previous value was IS. Result changed by IF on 01/06/2022 07:17. The previous value was XM.Performed By: #### 97727 ####[facility] [place] [address], USAUNIT ABO 1[facility] General HospitalComment on above:Performed By: #### 91140 ####[facility] [place] [address], USAUNIT ABO 2[facility] General HospitalComment on above:Performed By: #### 78838 ####[facility] [place] [address], USAUNIT ID [id number] NormalUC Medical CenterComment on above:Performed By: #### 09716 ####[facility] [place] [address], USAUNIT ID [id number] Medical Center Comment on above:Performed By: #### 01855 ####[facility] [place] [address], USAUNIT RH 1NegaMercy Health St. Charles HospitalComment on above:Performed By: #### 44810 ####[facility] [place] [address], [place] UNIT RH 2NWexner Medical CenterComment on above: Performed By: #### 07897 ####[facility] [address], [facility] ROSWELLAPTTon 10-76-7903qOXW Coag (Bld) [Time]32.1 sNormal 25.0-35.0The [facility] Medical CenterComment on above:Order Comment: post thoracotomyResult Comment: ALL RESULTS MUST BE INTERPRETED WITH RESPECT TO BLOOD DRAWING ARTIFACT OR DILUTION ERROR OF ANTICOAGULANT AT THE TIME OF SAMPLING. THE APTT SHOULD NOT BE USED TO MONITOR UNFRACTIONATED HEPARIN THERAPY, THIS LABORATORY NO LONGER HAS AN ESTABLISHED THERAPEUTIC RANGE BASED ON THE APTT. IT IS RECOMMENDED THAT THE UFH - HEPARIN ASSAY (ANTI-XA ACTIVITY) BE USED FOR THIS PURPOSE.Performed By: #### 20955, 85323 ####[facility] [facility] [place] [address], [facility] [place] BASIC METABOLIC PANELon 82-85-3871Pxupije [Mass/Vol]9.5 mg/dLNormal8.6-10.3The [facility] Medical CenterComment on above:Order Comment: No: Do not add to previous drawPerformed By: #### 74861, 22825, 05124, 85089 ####[place] [address] [facility] [place] [address], USAChloride [Moles/Vol]105 mmol/UPaqeab00-446Aef [facility] Medical CenterComment on above:Order Comment: No: Do not add to previous drawPerformed By: #### 67439, 96901, 81500, 31990 ####[facility] [place] [address], USACO2 [Moles/Vol]24 mmol/TQwkdvq32-02Gst [facility] Medical CenterComment on above:Order Comment: No: Do not add to previous drawPerformed By: #### 39902, 98685, 73165, 11554 ####[facility] [facility] [place] [address], USACreatinine [Mass/Vol]0.93 mg/dLNormal0.70-1.30The [facility] Medical CenterComment on above: Order Comment: No: Do not add to previous drawPerformed By: #### 35823, 08493, 71678, 79952 ####[facility] [place] [address], USAGFR/1.73 sq M.predicted among blacks MDRD (S/P/Bld) [Vol rate/Area] mL/min/{1.73_m2}Normal>60The [facility] Medical CenterComment on above:Order Comment: No: Do not add to previous drawPerformed By: #### 17057, 56760, 36408, 63788 ####[facility] [place] [address], USAGFR/1.73 sq M.predicted among non-blacks MDRD (S/P/Bld) [Vol rate/Area]mL/min/{1.73_m2}Normal>60The [facility] Comment on above:Order Comment: No: Do not add to previous drawPerformed By: #### 16055, 29393, 74729, 40856 ####[facility] [place] [address], USAGlucose [Mass/Vol]127 mg/tREvui46-250Hfm [facility] CenterComment on above:Order Comment: No: Do not add to previous drawPerformed By: #### 19070, 30627, 09637, 01150 ####[facility] [place] [address], USAPotassium [Moles/Vol]3.9 mmol/LNormal3.5-5.1The [facility] Medical CenterComment on above:Order Comment: No: Do not add to previous drawPerformed By: #### 72065, 11800, 55466, 77728 ####[facility] [place] [address], USASodium [Moles/Vol]138 mmol/SOvrqut570-830Hjn [facility] Medical CenterComment on above:Order Comment: No: Do not add to previous drawPerformed By: #### 91908, 04507, 41619, 08517 ####[facility] [place] [address], USAUrea nitrogen [Mass/Vol]13 mg/dLNormal7-25The [facility] Medical CenterComment on above:Order Comment: No: Do not add to previous drawPerformed By: #### 19811, 31558, 07108, 17629 ####[facility] [place] [address], USACBC COMPLETE BLOOD COUNTon 50-84-2047Qshbtsatmnu distribution width (RBC) [Ratio]12.8 %Brahtr71.5-15.0The [facility] Medical CenterComment on above:Order Comment: No: Do not add to previous draw Performed By: #### 44845 ####[facility] [place] [address], [facility] ROSWELLHematocrit (Bld) [Volume fraction]41.4 %Fcqrnf48.0-50.0 The [facility] Medical CenterComment on above:Order Comment: No: Do not add to previous drawPerformed By: #### 94716 ####[facility] [place] [address], USAHemoglobin (Bld) [Mass/Vol]14.6 g/vBIyflnd44.0-17.0The [facility] Medical CenterComment on above:Order Comment: No: Do not add to previous drawPerformed By: #### 40055 ####[facility] [place] [address], [place] MCH (RBC) [Entitic mass]30.1 txPppncr09.0-33.0The [facility] Medical CenterComment on above:Order Comment: No: Do not add to previous drawPerformed By: #### 55960 ####[facility] [place] [address], [facility] ROSWELLMCHC (RBC) [Mass/Vol]35.3 g/wXByhf01.0-35.0The [facility] Medical CenterComment on above:Order Comment: No: Do not add to previous draw Performed By: #### 30050 ####[facility] [facility] [place] [address], [facility] ROSWELLMCV (RBC) [Entitic vol]85.4 mLLcruww22.0-98.0The [facility] Medical CenterComment on above:Order Comment: No: Do not add to previous drawPerformed By: #### 80373 ####[facility] [facility] [place] [address], [facility] ROSWELLNucleated RBC/100 WBC (Bld) [Ratio]0 %Normal0-0The [facility] Medical CenterComment on above:Order Comment: No: Do not add to previous drawPerformed By: #### 99689 ####[facility] [facility] [place] [address], [facility], ROSWELLPLAT GNZ483 10*3/yWBncwqw675-049Rbu [facility] CenterComment on above: Order Comment: No: Do not add to previous drawPerformed By: #### 71341 ####[address] [place] [address], [facility] [place] RBC (Bld) [#/Vol]4.85 10*6/uLNormal4.20-5.70The [facility] Medical CenterComment on above:Order Comment: No: Do not add to previous drawPerformed By: #### 40614 ####[address] [place] [address], [facility] ROSWELLWBC (Bld) [#/Vol]6.95 10*3/uLNormal4.00-10.60The [facility] Medical CenterComment on above:Order Comment: No: Do not add to previous drawPerformed By: #### 70629 ####[facility] [place] [address], USALIPID PROFILEon 78-26-8357Osunhgcjuix [Mass/Vol]110 mg/oYBtg242-458Xli [facility] CenterComment on above:Order Comment: Check Chest Tube Position, ON ARRIVAL TO CVUResult Comment: CHOLESTEROL REFERENCE RANGE: 20 YEARS AND OLDER CARDIOVASCULAR RISK Less than 200 mg/dl Low Risk 200 to 239 mg/dl Borderline Risk 240 mg/dl and greater High RiskPerformed By: #### 46571 ####[facility] [place] [address], USACholesterol in HDL [Mass/Vol]29 mg/jQHrhnnp89-26Ouv [facility] CenterComment on above:Order Comment: Check Chest Tube Position, ON ARRIVAL TO CVUResult Comment: Slight variation in normal range could be due to gender and/or age. HDL CHOLESTEROL REFERENCE RANGE: 20 years and older Cardiovascular Risk > or =60 mg/dL Desirable 40 TO 59 mg/dL Low Risk <40 mg/dL High RiskPerformed By: #### 69718 ####[facility] [place] [address], USACholesterol in LDL [Mass/Vol]56 mg/dLNormal0-130The [facility] Medical CenterComment on above:Order Comment: Check Chest Tube Position, ON ARRIVAL TO CVUResult Comment: LDL IS A CALCULATION LDL IS ONLY VALID IF THE TRIG IS LESS THAN 400.Performed By: #### 82803 ####[facility] [place] [address], [place] Cholesterol.total/Cholesterol in HDL [Mass ratio]3.8 {ratio}Normal.0-4.5The [facility] Medical CenterComment on above:Order Comment: Check Chest Tube Position, ON ARRIVAL TO CVUPerformed By: #### 94627 ####[facility] [place] [address], USANON-HDL CHOLESTEROL 81 mg/dLNormalThe [facility] Medical CenterComment on above:Order Comment: Check Chest Tube Position, ON ARRIVAL TO CVUPerformed By: #### 06928 ####[facility] [place] [address], [place] Triglyceride [Mass/Vol]124 mg/yFLkyyvp78-633Dst [facility] Medical CenterComment on above:Order Comment: Check Chest Tube Position, ON ARRIVAL TO CVUResult Comment: TRIGLYCERIDE REFERENCE RANGE: 20 YEARS AND OLDER CARDIOVASCULAR RISK LESS THAN 150 mg/dl LOW RISK 150 TO 199 mg/dl BORDERLINE RISK 200 mg/dl AND GREATER HIGH RISKPerformed By: #### 96656 ####[facility] [place] [address], [facility], ROSWELLVLDL CHOL25 mg/dLNormal 0-40The [facility] Medical CenterComment on above:Order Comment: Check Chest Tube Position, ON ARRIVAL TO CVUPerformed By: #### 06909 ####[facility] [place] [address], USAMAGNESIUM BLOOD on 11-59-9648Jqurfohmt [Mass/Vol]2.1 mg/dLNormal1.9-2.7The [facility] Medical CenterComment on above:Order Comment: No: Do not add to previous draw Performed By: #### 47506, 27114, 16057, 54035 ####[facility] [facility] [place] [address], USAPHOSPHORUS BLOODon 01-02-2022 Phosphate [Mass/Vol]3.9 mg/dLNormal2.5-5.0The [facility] Medical CenterComment on above:Order Comment: No: Do not add to previous drawPerformed By: #### 79611, 03624, 49762, 94533 ####[facility] [facility] [place] [address], USAPOC GLUCOSE LABon 29-83-6268Gzkayqi [Mass/Vol] 149 mg/uDGgzu29-217Egz [facility] CenterComment on above: Performed By: #### 18403 ####[facility] [place] [address], USAGlucose [Mass/Vol]129 mg/hAPpod90-816Olo [facility] CenterComment on above:Performed By: #### 48214 ####[facility] [facility] [place] [address], USAGlucose [Mass/Vol] 203 mg/sPKjei38-138Qgj [facility] CenterComment on above: Performed By: #### 45054 ####[facility] [facility] [place] [address], USAGlucose [Mass/Vol]139 mg/oMRudy90-011Nbz [facility] CenterComment on above:Performed By: #### 39064 ####[facility] [facility] [place] [address], USAGlucose [Mass/Vol] 153 mg/rFObsp76-880Clk [facility] CenterComment on above: Performed By: #### [id number] ####[address] [place] [address], [place] SARS COV2 ANTIGEN NEGATIVEon [id number] SARS COV2 ANTIGEN NEGNegativeNormalNEGATIVEThe [facility] Comment on above:Result Comment: Negative results should be treated as presumptive and [...] antigen from SARS-CoV-2 in direct nasopharyngeal swab ([employer] HERBAL[employer]) specimens from individuals who are suspected of [...] Waiver, Certificate of Compliance, or Certificate of Accreditation.Performed By: #### [id number] ####[place] [id number] [facility] [place] [address], USAPORTABLE CHEST 1 VIEWon 01-02-2022 PORTABLE CHEST 1 VIEWMain Campus Medical Center Department of Radiology [address] [place] [address] Patient Name: OSWALD OCHOA : 1955 Sex: M Age: Race: White Pt. Location: [address] [place] [address] Patient Status: I Ordered Date: 01/02/2022 9:50:00 [...] unchanged Electronically signed: Tang Pino. Transcribed by: [email or web address], User Resident: Electronically Signed by: TANG PINO @ 01/02/2022 10:53 AMNormalThe [facility] Campus Medical CenterComment on above:Order Comment: post thoracotomyPROTHROMBIN TIMEon [id number] Coag (PPP) [Relative time]1.01 {INR} Normal0.91-1.16[facility] CenterComment on above:Order Comment: post thoracotomyResult Comment: ACCCP RECOMMENDED INR FOR WARFARIN THERAPY ------- CONDITION INR PROPHYLAXIS OF VENOUS THROMBOSIS 2-3 (HIGH-RISK SURGERY) TREATMENT OF VENOUS THROMBOSIS 2-3 TREATMENT OF PULMONARY EMBOLISM 2-3 PREVENTION OF SYSTEMIC EMBOLISM: 2-3 ACUTE MYOCARDIAL INFARCTION TISSUE HEART VALVES VALVULAR HEART DISEASE ATRIAL FIBRILLATION RECURRENT SYSTEMIC EMBOLISM MECHANICAL HEART VALVE 2.5-3.5 FROM: ORAL ANTICOAGULANTS. MECHANISM OF ACTION, CLINICAL EFFECTIVENESS, AND OPTIMAL THERAPEUTIC RANGE. CHEST 1995;108:231S-246S.Performed By: #### 39934, 10786 ####[facility] [place] [address], USAPT Coag (PPP) [Time]13.3 s Qkiudk95.3-14.8The Main Campus Medical CenterComment on above:Order Comment: post thoracotomyResult Comment: ALL RESULTS MUST BE INTERPRETED WITH RESPECT TO BLOOD DRAWING ARTIFACT OR DILUTION ERROR OF ANTICOAGULANT AT THE TIME OF SAMPLING.Performed By: #### 54765, 55964 ####[facility] [place] [address], USARBC'S 2 UNITSon [id number] INTERP 1COhioHealth Grove City Methodist HospitalComment on above:Performed By: #### 10088 ####[facility] [place] [address], [place] CROSSMATCH INTERP 2COhioHealth Grove City Methodist HospitalComment on above:Performed By: #### 61038 ####[facility] [place] [address], USAPRODUCT CODE [id number] HospitalComment on above:Performed By: #### 52397 ####[facility] [place] [address], USAPRODUCT CODE 2 [id number] HospitalComment on above:Performed By: #### 34834 ####[facility] [facility] [place] [place] [address], USAPRODUCT STATUS 1RClinton [facility] Comment on above:Result Comment: Result changed by IF on 01/03/2022 12:35. The previous value was XM. Result changed by IF on 01/03/2022 17:59. The previous value was IS. Result changed by IF on 01/06/2022 07:17. The previous value was XM.Performed By: #### 50862 ####[facility] [place] [address].[place] [address], USAPRODUCT STATUS 2RClinton Memorial Hospital Comment on above:Result Comment: Result changed by IF on 01/03/2022 12:35. The previous value was XM. Result changed by IF on 01/03/2022 17:59. The previous value was IS. Result changed by IF on 01/06/2022 07:17. The previous value was XM.Performed By: #### 76189 ####[facility] [facility] [place] [address], USAUNIT ABO 1Ashtabula General HospitalComment on above:Performed By: #### 65049 ####[facility] [facility] [place] [address], USAUNIT ABO 2ONoBellevue HospitalComment on above:Performed By: #### 54639 ####[facility] [facility] [place] [address], USAUNIT ID [id number] NormalThe Main Campus Medical CenterComment on above:Performed By: #### 83232 ####[facility] [facility] [place] [address], USAUNIT ID [id number]-ENzbybdPlqKettering Health Dayton Comment on above:Performed By: #### 48291 ####[facility] [facility] [place] [address], USAUNIT RH 1NWexner Medical CenterComment on above:Performed By: #### 76424 ####[facility] [facility] [place] [address], [place] UNIT RH 2NegativeNoBellevue HospitalComment on above: Performed By: #### 99135 ####[address] [place] [address], USATROPONIN-Ion 83-91-2416Gpnvvlna I.cardiac [Mass/Vol] 0.00 ng/mLNormal0.00-0.04The [facility] Campus Medical CenterComment on above:Result Comment: REFERENCE RANGES: 0.00 - 0.04 ng/ml NORMAL 0.05 - 0.50 ng/ml INDETERMINATE > 0.50 ng/ml CONSISTENT WITH AN M.I.Performed By: #### 52751, 12303, 70178, 71928 ####[place] [address] LUISTUCSON [place] [address], USATYPE AND SCREENon 15-02-3669COW INTERPRETATIONONoBellevue HospitalComment on above:Performed By: #### 91940 ####[place] [address] [facility] [place] [address], USARH INTERPRETATION NegativeNoBellevue HospitalComment on above:Performed By: #### 17523 ####[address] [place] [address], USAURINALYSIS REFLEXon 22-93-9108Ecdtunwsbr (U)CLEARNormalCLEARUC Medical CenterComselect specialty hospital-[facility] on above:Order Comment: No: Do not add to previous drawCriteria for reflexing a culture was not met. Please call the lab [id number] within 24 hours of collection time if culture is neededPerformed By: #### 68150 ####[address] [place] [address], USABilirubin Ql (U)NegativeNormalNEGATIVEUC Medical CenterComselect specialty hospital-[facility] on above:Order Comment: No: Do not add to previous drawCriteria for reflexing a culture was not met. Please call the lab [id number] within 24 hours of collection time if culture is neededPerformed By: #### 15570 ####[place] [address] [place] [address], [place] Color (U)YELLOWNormalYELLOWThe Main Campus Medical CenterComselect specialty hospital-[facility] on above:Order Comment: No: Do not add to previous drawCriteria for reflexing a culture was not met. Please call the lab [id number] within 24 hours of collection time if culture is neededPerformed By: #### 26573 ####[address] [place] [address], USAEPISNONE SEENNormal FEW,OCC,NONE SEENThe Main Campus Medical CenterComment on above:Order Comment: No: Do not add to previous drawCriteria for reflexing a culture was not met. Please call the lab [id number] within 24 hours of collection time if culture is neededPerformed By: #### 20919 ####[facility] [place] [address], USAGlucose Ql (U)NegativeNormalNEGATIVEThe Main Campus Medical CenterComment on above:Order Comment: No: Do not add to previous drawCriteria for reflexing a culture was not met. Please call the lab [id number] within 24 hours of collection time if culture is neededPerformed By: #### 16124 ####[facility] [place] [address] AVE.[place] [id number], USAHemoglobin Ql (U)NegativeNormalNEGATIVEThe Main Campus Medical CenterComment on above:Order Comment: No: Do not add to previous drawCriteria for reflexing a culture was not met. Please call the lab [id number] within 24 hours of collection time if culture is neededPerformed By: #### 34509 ####[facility] [facility].[place] [id number], [place] KETONENegativeNormalNEGATIVEThe Main Campus Medical CenterComment on above:Order Comment: No: Do not add to previous drawCriteria for reflexing a culture was not met. Please call the lab [id number] within 24 hours of collection time if culture is neededPerformed By: #### 51236 ####[facility] [place] [address], USALEUK ESTERNegativeNormal NEGATIVEThe Main Campus Medical CenterComment on above:Order Comment: No: Do not add to previous drawCriteria for reflexing a culture was not met. Please call the lab [id number] within 24 hours of collection time if culture is neededPerformed By: #### 01821 ####[facility]URADELAWARE PSYCHI[facility]RIC CENTERE.[place] [id number], USANitrite Ql (U)NegativeNormalNEGATIVEThe Main Campus Medical CenterComment on above:Order Comment: No: Do not add to previous drawCriteria for reflexing a culture was not met. Please call the lab [id number] within 24 hours of collection time if culture is neededPerformed By: #### 88816 ####[facility] [place] [address], USApH (U)7.0 [pH]Normal5.0-8.0The [facility] Comment on above:Order Comment: No: Do not add to previous drawCriteria for reflexing a culture was not met. Please call the lab [id number] within 24 hours of collection time if culture is neededPerformed By: #### 59931 ####[facility] [facility].[place] [id number], USAProtein Ql (U) NegativeNormalNEGATIVEThe Main Campus Medical CenterComment on above: Order Comment: No: Do not add to previous drawCriteria for reflexing a culture was not met. Please call the lab [id number] within 24 hours of collection time if culture is neededPerformed By: #### 05741 ####[facility] [facility] [place] [address], USARBCNONE SEENNormalNONE SEENThe Main Campus Medical CenterComment on above:Order Comment: No: Do not add to previous drawCriteria for reflexing a culture was not met. Please call the lab [id number] within 24 hours of collection time if culture is neededPerformed By: #### 99138 ####[facility] [facility] [place] [address], USASPEC GRAV1.050Bzn2.015-1.020The [facility] Campus Medical CenterComment on above:Order Comment: No: Do not add to previous drawCriteria for reflexing a culture was not met. Please call the lab [id number] within 24 hours of collection time if culture is neededPerformed By: #### 04562 ####[facility] [id number] [facility] [place] [address], [facility], ROSWELLUA COMMENT 2 UROBILINOGEN (E.U./DL)= 2.0NormalThe Main Campus Medical CenterComment on above:Order Comment: No: Do not add to previous drawCriteria for reflexing a culture was not met. Please call the lab [id number] within 24 hours of collection time if culture is neededPerformed By: #### 06793 ####[place] [address] [facility] [place] [address], [facility], ROSWELLWBC UANONE SEENNormalNONE SEENThe Main Campus Medical CenterComment on above:Order Comment: No: Do not add to previous drawCriteria for reflexing a culture was not met. Please call the lab [id number] within 24 hours of collection time if culture is needed Performed By: #### 87128 ####[address] [place] [address], [facility], ROSWELLAPTTon 24-13-4851hWBI Coag (Bld) [Time]31.6 sNormal 25.0-35.0The [facility] Campus Medical CenterComment on above:Order Comment: post thoracotomyResult Comment: ALL RESULTS MUST BE INTERPRETED WITH RESPECT TO BLOOD DRAWING ARTIFACT OR DILUTION ERROR OF ANTICOAGULANT AT THE TIME OF SAMPLING. THE APTT SHOULD NOT BE USED TO MONITOR UNFRACTIONATED HEPARIN THERAPY, THIS LABORATORY NO LONGER HAS AN ESTABLISHED THERAPEUTIC RANGE BASED ON THE APTT. IT IS RECOMMENDED THAT THE UFH - HEPARIN ASSAY (ANTI-XA ACTIVITY) BE USED FOR THIS PURPOSE.Performed By: #### 98484, 21963 ####[address] [place] [address], [facility] [place] BASIC METABOLIC PANELon 13-04-5172Hkxcoba [Mass/Vol]9.6 mg/dLNormal8.6-10.3The [facility] Campus Medical CenterComment on above:Order Comment: Check Chest Tube Position, ON ARRIVAL TO CVUPerformed By: #### 57327, 46060, 09387, 54570 ####[facility] [place] [address], [place] Chloride [Moles/Vol]105 mmol/NNqdijh90-502Pdv [facility] Medical CenterComment on above:Order Comment: Check Chest Tube Position, ON ARRIVAL TO CVUPerformed By: #### 51821, 49226, 36961, 72440 ####[facility] [place] [address], USACO2 [Moles/Vol]25 mmol/L Sdlgmh29-62Vzd [facility] Medical CenterComment on above:Order Comment: Check Chest Tube Position, ON ARRIVAL TO CVUPerformed By: #### 66803, 46480, 15314, 58568 ####[facility] [place] [address], USACreatinine [Mass/Vol]1.03 mg/dLNormal0.70-1.30The [facility] Campus Medical CenterComment on above:Order Comment: Check Chest Tube Position, ON ARRIVAL TO CVUPerformed By: #### 06604, 39362, 76625, 34133 ####[facility] [facility]INGSW[facility] [place] [place] [address], [place] GFR/1.73 sq M.predicted among blacks MDRD (S/P/Bld) [Vol rate/Area] mL/min/{1.73_m2}Normal>60The [facility] Medical CenterComment on above:Order Comment: Check Chest Tube Position, ON ARRIVAL TO CVUPerformed By: #### 90124, 77023, 20248, 84775 ####[facility] [place] [address], [facility], ROSWELLGFR/1.73 sq M.predicted among non-blacks MDRD (S/P/Bld) [Vol rate/Area]mL/min/{1.73_m2}Normal>60The [facility] Medical CenterComment on above:Order Comment: Check Chest Tube Position, ON ARRIVAL TO CVUPerformed By: #### 81956, 45085, 65076, 00390 ####[facility] [place] [address], USAGlucose [Mass/Vol] 101 mg/aROfpp01-802Ogd [facility] Medical CenterComment on above:Order Comment: Check Chest Tube Position, ON ARRIVAL TO CVUPerformed By: #### 70940, 12036, 02553, 46088 ####[facility] [place] [address], USAPotassium [Moles/Vol]3.9 mmol/LNormal3.5-5.1The [facility] Campus Medical CenterComment on above:Order Comment: Check Chest Tube Position, ON ARRIVAL TO CVUPerformed By: #### 46191, 31476, 29087, 86014 ####[facility] [facility] [address], [facility] Sodium [Moles/Vol]138 mmol/KXuizvr179-530Ffk [facility] Comment on above:Order Comment: Check Chest Tube Position, ON ARRIVAL TO CVU Performed By: #### 11878, 87778, 57658, 20482 ####[facility] [facility] [place] [address], USAUrea nitrogen [Mass/Vol]13 mg/dL Normal7-25The [facility] Campus Medical CenterComment on above:Order Comment: Check Chest Tube Position, ON ARRIVAL TO CVUPerformed By: #### 14424, 17349, 76810, 18606 ####[facility] [facility] [address], [facility], ROSWELLBNP (B-TYPE NATRIURETIC PEPTIDE)on 38-89-9390Ikkjvfmzhnm peptide B (Bld) [Mass/Vol]19 pg/mLNormal0-100The [facility] Comment on above:Order Comment: Check Chest Tube PositionResult Comment: Given the appropriate clinical setting a BNP result of >100 pg/mL indicates congestive heart failure.Performed By: #### 21006 ####[facility] [place] [address], [facility], ROSWELLCBC W/DIFFon 89-06-7550ILD IMM GRANS0.0 10*3/uLNormal0.0-0.2The [facility] Medical CenterComment on above:Performed By: #### 05849 ####[facility] [facility] [place] [address], [facility], ROSWELLABS NEUTROPHILS4.9 10*3/uLNormal 1.6-7.6The [facility] Campus Medical CenterComment on above:Performed By: #### 82069 ####[facility] [facility] [place] [address], [facility] ROSWELLBasophils (Bld) [#/Vol]0.0 10*3/uLNormal0.0-0.2The [facility] Medical CenterComment on above:Performed By: #### 59912 ####[address] [place] [address], [facility], ROSWELLBasophils/100 WBC (Bld)0.5 %Normal0.0-1.0The [facility] Campus Medical CenterComment on above: Performed By: #### 14905 ####[facility] [place] [address].[place] [address], [facility], ROSWELLEosinophils (Bld) [#/Vol]0.1 10*3/uLNormal0.0-0.5The [facility] Medical CenterComment on above:Performed By: #### 20998 ####[address] [place] [address], [facility] Eosinophils/100 WBC (Bld)1.8 %Normal0.0-6.0The [facility] Campus Medical CenterComment on above:Performed By: #### 56384 ####[address] [place] [address], USAErythrocyte distribution width (RBC) [Ratio]12.6 %Eozayf16.5-15.0The [facility] Campus Medical CenterComment on above:Performed By: #### 30504 ####[address] [place] [address], [facility] ROSWELLHematocrit (Bld) [Volume fraction]40.4 % Eryuyp51.0-50.0The [facility] Campus Medical CenterComment on above:Performed By: #### 04127 ####[address] [place] [address], [facility] ROSWELLHemoglobin (Bld) [Mass/Vol]14.2 g/jQBiwjkk32.0-17.0The [facility] Medical CenterComment on above:Performed By: #### 08420 ####[address] [place] [address], [facility] ROSWELLIMMATURE GRANS 0.3 %Normal0.0-1.0The [facility] Campus Medical CenterComment on above: Performed By: #### [address] ####[place] [address], [facility] ROSWELLLymphocytes (Bld) [#/Vol]2.2 10*3/uLNormal1.2-4.0The [facility] Medical CenterComment on above:Performed By: #### 41145 ####[address] [place] [address], [facility] [place] Lymphocytes/100 WBC (Bld)28.0 %Goerwz97.0-45.0The [facility] Campus Medical CenterComment on above:Performed By: #### 82938 ####[address] [place] [address], [facility] ROSWELLMCH (RBC) [Entitic mass]30.1 pg Nkgolq72.0-33.0The [facility] Campus Medical CenterComment on above:Performed By: #### 07034 ####[address] [place] [address], [facility] ROSWELLMCHC (RBC) [Mass/Vol]35.1 g/xKKpxp99.0-35.0The [facility] Medical CenterComment on above:Performed By: #### 50907 ####[facility] [facility] [place] [address], [facility] ROSWELLMCV (RBC) [Entitic vol]85.6 mKGyhnev59.0-98.0The [facility] Campus Medical CenterComment on above:Performed By: #### 09123 ####[facility] [facility] [place] [address], USAMonocytes (Bld) [#/Vol]0.7 10*3/uLNormal 0.1-1.0The [facility] Medical CenterComment on above:Performed By: #### 76152 ####[facility] [facility] [place] [address], USAMONOS8.5 %Normal5.0-12.0The [facility] Campus Medical CenterComment on above:Performed By: #### 60882 ####[facility] [facility] [place] [address], USANeutrophils/100 WBC (Bld)60.9 %Normal 40.0-72.0The [facility] Campus Medical CenterComment on above:Performed By: #### 38000 ####[facility] [facility] [place] [address], USANucleated RBC/100 WBC (Bld) [Ratio]0 %Normal0-0The [facility] Medical CenterComment on above:Performed By: #### 05698 ####[facility] [facility] [place] [address], USAPLAT PZQ050 10*3/yRBikqzh121-531Tqa [facility] Medical CenterComment on above: Performed By: #### 69659 ####[facility] [facility] [place] [address], USARBC (Bld) [#/Vol]4.72 10*6/uLNormal4.20-5.70The [facility] Medical CenterComment on above:Performed By: #### 16916 ####[facility] [place] [address], [place] WBC (Bld) [#/Vol]7.96 10*3/uLNormal4.00-10.60The [facility] Medical CenterComment on above:Performed By: #### 40250 ####[facility] [facility] [place] [address], [facility], ROSWELLHEMOGLOBIN A1Con 01-01-2022 Glucose [Moles/Vol]137 mmol/LNormalThe [facility] Comment on above:Order Comment: evaluatePerformed By: #### 68407 ####[address] [place] [address], DYCDgO9y (Bld) [Mass fraction]6.4 %High4.0-6.0The [facility] Campus Medical CenterComment on above:Order Comment: evaluatePerformed By: #### 57956 ####[address] [place] [address], [facility], ROSWELLMAGNESIUM BLOODon 86-30-4427Umrezuscb [Mass/Vol]2.1 mg/dLNormal1.9-2.7The [facility] Medical CenterComment on above:Order Comment: Check Chest Tube Position, ON ARRIVAL TO CVUPerformed By: #### 86756, 51118, 88221, 51258 ####[address] [place] [address], USAPHOSPHORUS BLOODon 65-67-9643Wbkyrhtpo [Mass/Vol]3.7 mg/dLNormal2.5-5.0The [facility] Medical CenterComment on above:Order Comment: Check Chest Tube Position, ON ARRIVAL TO CVUPerformed By: #### 14714, 49952, 42600, 66472 ####[address] [place] [address], [facility], ROSWELLPOC GLUCOSE LABon 94-29-2764Yfmagmj [Mass/Vol]192 mg/bOHjjg01-292Gzm [facility] Medical CenterComment on above:Performed By: #### 22140 ####[facility] [place] [address], USAGlucose [Mass/Vol]124 mg/dLHigh 70-100The [facility] Campus Medical CenterComment on above:Performed By: #### 94857 ####[facility] [place] [address], USAPORTABLE CHEST 1 VIEWon 53-18-3776PUPEBZJU CHEST 1 VIEWUnKettering Health Troy Department of Radiology [address] [place] [address] Patient Name: OSWALD OCHOA : 1955 Sex: M Age: Race: White Pt. Location: [address] [place] [address] Patient Status: I Ordered Date: 01/01/2022 4:50:00 [...] unremarkable. Electronically signed: Dia Hodges. Transcribed by: [email or web address], User Resident: Electronically Signed by: DIA HODGES @ 01/01/2022 05:51 PMNormalThe Main Campus Medical CenterPROTHROMBIN TIMEon 17-59-3775TXL Coag (PPP) [Relative time]0.99 {INR}Normal0.91-1.16The [facility] Comment on above:Order Comment: post thoracotomyResult Comment: ACCCP RECOMMENDED INR FOR WARFARIN THERAPY ------- CONDITION INR PROPHYLAXIS OF VENOUS THROMBOSIS 2-3 (HIGH-RISK SURGERY) TREATMENT OF VENOUS THROMBOSIS 2-3 TREATMENT OF PULMONARY EMBOLISM 2-3 PREVENTION OF SYSTEMIC EMBOLISM: 2-3 ACUTE MYOCARDIAL INFARCTION TISSUE HEART VALVES VALVULAR HEART DISEASE ATRIAL FIBRILLATION RECURRENT SYSTEMIC EMBOLISM MECHANICAL HEART VALVE 2.5-3.5 FROM: ORAL ANTICOAGULANTS. MECHANISM OF ACTION, CLINICAL EFFECTIVENESS, AND OPTIMAL THERAPEUTIC RANGE. CHEST 1995;108:231S-246S.Performed By: #### 17194, 45467 ####[facility] [facility] [place] [address], USAPT Coag (PPP) [Time]13.1 s Bioiak90.3-14.8The [facility] Medical CenterComment on above:Order Comment: post thoracotomyResult Comment: ALL RESULTS MUST BE INTERPRETED WITH RESPECT TO BLOOD DRAWING ARTIFACT OR DILUTION ERROR OF ANTICOAGULANT AT THE TIME OF SAMPLING.Performed By: #### 51250, 58324 ####[facility] [facility] [place] [address], USATROPONIN-Ion 35-64-1789Jdjrrswa I.cardiac [Mass/Vol]0.00 ng/mL Normal0.00-0.04The [facility] Medical CenterComment on above:Order Comment: Check Chest Tube PositionResult Comment: REFERENCE RANGES: 0.00 - 0.04 ng/ml NORMAL 0.05 - 0.50 ng/ml INDETERMINATE > 0.50 ng/ml CONSISTENT WITH AN M.I.Performed By: #### 56352 ####[facility] [facility] [place] [address], USATroponin I.cardiac [Mass/Vol]0.00 ng/mLNormal0.00-0.04The [facility] Comment on above:Order Comment: Check Chest Tube Position, ON ARRIVAL TO CVU Result Comment: REFERENCE RANGES: 0.00 - 0.04 ng/ml NORMAL 0.05 - 0.50 ng/ml INDETERMINATE > 0.50 ng/ml CONSISTENT WITH AN M.I.Performed By: #### 35320, 24425, 42811, 10083 ####[facility] [place] [address], USACardiovascular Lab Reporton 84-95-5458Knmbrjipsbzzco Lab ReportUnChillicothe [facility] Center [facility] #: [id number] Physician: Alissa Department of MD Darshan Medicine Service Date: 12/18/2021 Division of Birthdate: 1955 Cardiology Room #: [facility] Services [place] [address] Cardiovascular Laboratory Report PROCEDURES PERFORMED: 1. Bilateral selective coronary angiography. 2. Left heart catheterization. FINAL IMPRESSIONS: 1. Severe 3 vessel [place] coronary artery disease. 2. Normal LVEDP. RECOMMENDATIONS: [...] Galindo MD Date Trans: 12/18/2021 11:28 P/jackie DN_JN:[id number] Children's Medical Center Vital Signs Date TimeVital SignValuePerforming FfifberijHmfogqby67-09-9959 11:12-0400 Diastolic blood pkkfylds27 mm[Hg]Jacob Mckeon MD Work Phone: [phone]10-27-2025 11:12-0400 Heart rate91 /Fatmata Mckeon MD Work Phone: [phone] [place], [place] 7220710-27-2025 11:12-0400 Systolic blood efzwydex791 mm[Hg]Jacob Mckeon MD Work Phone: [phone] [place], [place] 7220710-27-2025 11:02-0400 Body owlqqk475.72 cmJacob Mckeon MD Work Phone: [phone] [place], [place] 7220710-27-2025 11:02-0400 Body mass index (BMI) [Ratio]34.9 kg/c0WpluipJacob Mckeon MD Work Phone: [phone] [place], [place] 7220710-27-2025 11:02-0400 Body zeqqew575.32 kgJacob Mckeon MD Work Phone: [phone] [place], [place] 7220709-17-2025 11:13-0400 Body tyawsr004.72 cmJacob Mckeon MD Work Phone: [phone] [place], [place] 7220709-17-2025 11:13-0400 Body mass index (BMI) [Ratio]36 kg/k5NodgufJacob Mckeon MD Work Phone: [phone] [place], [place] 7220709-17-2025 11:13-0400 Body ewcqkb303.5 kgJacob Mckeon MD Work Phone: 1([phone] [place], [place] 7220709-17-2025 11:13-0400 Diastolic blood vfmtmwii19 mm[Hg]Jacob Mckeon MD Work Phone: 1(072)[address] [place], [place] 7220709-17-2025 11:13-0400 Heart rate80 /Fatmata Mckeon MD Work Phone: 1([phone])[address] [place], [place] 7220709-17-2025 11:13-0400 Systolic blood vzifmptc933 mm[Hg]Jacob Mckeon MD Work Phone: 1(150)[address] [place], [place] 7220709-02-2025 15:13-0400 Body urbbua138.72 cmJacob Mckeon MD Work Phone: [facility]09-02-2025 15:13-0400 Body mass index (BMI) [Ratio]36.8 kg/k3JdrhbyJacob Mckeon MD Work Phone: [facility]09-02-2025 15:13-0400 Body ldwydh559.76 kgJacob Mckeon MD Work Phone: [facility]09-02-2025 15:13-0400 Diastolic blood lyrftdnf09 mm[Hg]Jacob Mckeon MD Work Phone: [facility]09-02-2025 15:13-0400 Heart rate64 /minJacob Mckeon MD Work Phone: [facility]09-02-2025 15:13-0400 Systolic blood anvgkpur559 mm[Hg]Jacob Mckeon MD Work Phone: [phone]12-09-2024 15:24-0500 Body qgrxdo443.7 cmJustus Braxton MD Work Phone: [facility] HospitalMcehkk68-67-9626 15:24-0500Body mass index (BMI) [Ratio]37.07 kg/m2Justus Braxton MD Work Phone: cMag[facility] HospitalEgmlnr44-17-3828 15:24-0500Body ffqigq439.6 kgJustus Braxton MD Work Phone: [facility] HospitalPsfhsy02-92-3672 15:24-0500Diastolic blood mm[Hg]Justus Braxton MD Work Phone: [facility] HospitalEtbtyh42-01-4625 15:24-0500Heart rate56 /min Justus Braxton MD Work Phone: [facility] HospitalKcwezo04-49-2293 15:24-0500Systolic blood aqyvubee436 mm[Hg]Justus Braxton MD Work Phone: [facility] HospitalUjuxxc14-02-6905 09:59-0400Blood Pressure LocationAlysha Galea [facility]10-31-2024 09:59-0400Diastolic blood ufybsbbz84 mm[Hg]Olivia Galea [facility]10-31-2024 09:59-0400Heart rate70 /minAlysha Galea [facility]10-31-2024 09:59-0400Systolic blood hbmkufqa883 mm[Hg]Olivia Galea [facility]10-04-2024 10:20-0400Diastolic blood ydwhuubb07 mm[Hg]Alissa Mooney [address] [place], [place] 8125210-04-2024 10:20-0400Heart rate76 /minMohamad Vinicio [address] [place], [place] 8125210-04-2024 10:20-0400Mean blood zjutglkk942 mm[Hg]Alissa Mooney [address] [place], [place] 8125210-04-2024 10:20-0400 Respiratory rate15 /minMohamad Vinicio [address] [place], [place] 8125210-04-2024 10:20-7336QfA5% (BldA) [Mass fraction]96 %Alissa Mooney [address] [place], [place] 8125210-04-2024 10:20-0400 Systolic blood yyvipuqc600 mm[Hg]Alissa Mooney [address] [place], [place] 8125210-04-2024 10:11-0400 Diastolic blood ptbjfqzi69 mm[Hg]Alissa Mooney [address] [place], [place] 8125210-04-2024 10:11-0400Heart rate85 /minMohamad Mouchli [address] [place], [place] 8125210-04-2024 10:11-0400 Respiratory rate14 /minMohamad Mouchli [address] [place], [place] 4612510-04-2024 10:11-7119HqJ8% (BldA) [Mass fraction]97 %Mohamad Mouchli [address] [place], [place] 4612510-04-2024 10:11-0400 Systolic blood mm[Hg]Mohamad Mouchli [address] [place], [place] 4612510-04-2024 10:10-0400 Diastolic blood xtitdqns54 mm[Hg]Mohamad Mouchli [address] [place], [place] 4612510-04-2024 10:10-0400Heart rate86 /minMohamad Mouchli [address] [place], [place] 4612510-04-2024 10:10-0400Mean blood oseqkvki76 mm[Hg]Mohamad Mouchli [address] [place], [place] 8125210-04-2024 10:10-0400 Respiratory rate14 /minMohamad Mouchli [address] [place], [place] 8125210-04-2024 10:10-6827YsQ8% (BldA) [Mass fraction]97 %Mohamad Mouchli [address] [place], [place] 4612510-04-2024 10:10-0400 Systolic blood sygoniqj467 mm[Hg]Mohamad Mouchli [address] [place], [place] 4612510-04-2024 10:05-0400Blood Pressure LocationMohamad Mouchli [address] [place], [place] 4612510-04-2024 10:05-0400Body savqfqwezyg03.88 [degF]Mohamad Mouchli [facility]10-04-2024 10:05-0400Mean blood hurzsoda03 mm[Hg]Kaykayteddy Jerichostormy [address] [place], [place] 8125210-04-2024 08:34-0400Blood Pressure LocationMomora Mooney [address] [place], [place] 8125210-04-2024 08:34-0400Body ckmawglzxuy22.88 [degF]Kaykayteddy Jerichostormy [address] [place], [place] 8125209-19-2024 10:19-0400Blood Pressure LocationMomora Mooney [phone]-Qfmoh[address] [place], [place] 1902209-19-2024 10:19-0400Diastolic blood mm[Hg]Kaykayteddy Jerichostormy [phone]-Hggeg[address] [place], [place] 1902209-19-2024 10:19-0400Heart rate51 /minAlissa Mooney [phone]-Qxcyg[address] [place], [place] 1902209-19-2024 10:19-0400Systolic blood lanylybi373 mm[Hg]Alissa Echavarriastormy [phone]-Ntcaq[address] [place], [place] 1902208-27-2024 11:05-0400Body inaudp964.72 [facility] 11:05-0400Body mass index (BMI) [Ratio]37.2 kg/r0YsdrekzvvCommunity [facility]08-27-2024 11:05-0400Body uarpgz863.13 kg[facility] 03-24-2024 11:05-0400Diastolic blood nsxmmrue32 mm[Hg][facility]08-27-2024 11:05-0400Heart rate54 /minCommunity [facility] 03-24-2024 11:05-0400Systolic blood fahlnhnq960 mm[Hg][facility]01-12-2023 10:45-0500Body oajavx553.99 cmKellymanny Linda Other [employer] Other 01-12-2023 10:45-0500Body mass index (BMI) [Ratio] 35.81 kg/w3Qgnpvp Linda Other [employer] Other 01-12-2023 10:45-0500Body xaxtxc310.41 kgJacob Linda Other [employer] Other 01-12-2023 10:45-0500Diastolic blood ecpfcgxf67 mm[Hg] Jacobmarisabel Mckeon Other [employer] Other 01-12-2023 10:45-1028XpL0% (BldA) [Mass fraction]97 % Jacob Mckeon Other [employer] Other 01-12-2023 10:45-0500Systolic blood mm[Hg] Jacob Mckeon Other [employer] Other 12-28-2022 13:00-0500Body .26 cmAkathie Ontiveros Other [employer] Other 12-28-2022 13:00-0500Body mass index (BMI) [Ratio] 35.73 kg/c3ApxkvMary Ontiveros Other [employer] Other 12-28-2022 13:00-0500Body ekmextplwov26.8 [degF]Mary Ontiveros Other [employer] Other 12-28-2022 13:00-0500Body stxjuc878.77 kgMary Ontiveros Other [employer] Other 12-28-2022 13:00-0500Respiratory rate18 /minChaoer Ontiveros Other [facility] Other 12-28-2022 13:00-0975TuA0% (BldA) [Mass fraction]96 % Mary Ontiveros Other [facility] Other 08-03-2022 12:30-0400Body .26 cmPamela Marquita [facility] Other 08-03-2022 12:30-0400Body mass index (BMI) [Ratio] 34.26 kg/y1Wilwovneftaly Juárez Other [facility] Other 08-03-2022 12:30-0400Body cogqktwcnox692.6 [degF] Cass Lakhanimond Other [place] [employer] Other 08-03-2022 12:30-0400Body qoelch824.24 kgPaneftaly Juárez Other [employer] Other 08-03-2022 12:30-0400Respiratory rate18 /minCass Juárez Other [employer] Other 08-03-2022 12:30-7794VbT7% (BldA) [Mass fraction]97 % Cass Lakhanimond Other [employer] Other Encounters Encounter DateEncounter TypeCare ProviderFacilityStart: 81-92-8600saxekkcwci Shade Robison WATERSFacility:ALYSIA BellevueStart: 05-24-2025 End: 63-73-5523scrdtcsskfPemqfu E Braun MD Work Phone: [facility]: 05-24-2025 End: 95-43-7511Lxxwejj encounter procedureJacob Mckeon MD-[facility] Work Phone: Start: 60-12-5672Qtc-patient / Non-visitCatraciel Pino CMA-[facility] Work Phone: Start: 94-22-7775Ara-patient / Non-visitAmy Keira GONSALES -[facility] Work Phone: Start: 04-14-2025 End: 53-55-5961pulsizqzmpWdgrly E Braun MD Work Phone: [facility] Work Phone: Start: 04-14-2025 End: 05-69-1654Kuddang encounter procedureJacob Mckeon MD-[facility] Work Phone: Start: 03-30-2025 End: 46-90-0673sqiurihapjSckylb E Braun MD Work Phone: [facility] Work Phone: Start: 03-30-2025 End: 81-92-4441Jucmxmn encounter procedureJacob Mckeon MD-[facility] Work Phone: Start: 01-28-2025 End: 20-27-9642ahulayducqWMXH White Hospitaltart: 57-15-6912Hkm-patient / Non-visitMarcelino Stern CNP-[facility] Work Phone: Start: 12-10-2024 End: 99-41-9734uvcmvnwquxNvgsvrs R WATERSFacility:CD:[id number]: 11-24-2024 End: 06-44-6584Mnchke flowsheetJr. Dinora Snyder DO Work Phone: [facility]OC[facility] FB ORTHOPAEDICSStart: 11-24-2024 End: 98-49-1333Maikid flowsheetJrJonathan Snyder DO Work Phone: noms FB ORTHOPAEDICSStart: 11-24-2024 End: 18-70-1597Vwixtq outpatient visit 15 minutesJr. Dinora Snyder DO Work Phone: noms FB ORTHOPAEDICSComment on above:Primary osteoarthritis of left knee (Primary Dx); Acute pain of left kneeStart: 11-24-2024 End: 04-47-3870cpcsjibwkfQU., DINORA SNYDERNot AvailableStart: 11-20-2024 End: 18-24-9185ganrphxjxeZizdfxy R WATERSFacility:EU BellevueStart: 11-17-2024 End: 70-69-1697Vwxmpbuox encounterKehinde Gonzalez [employer] HER[employer] Work Phone: NOUN SWS ORTHOComment on above:InjectionStart: 10-26-2024 End: 02-29-3589Xpfgxn flowsMoris Gonzalez NP Work Phone: NOAA FB ORTHOPAEDICSStart: 10-26-2024 End: 58-15-4415Whyaaa flowsMoris Gonzalez CH[employer] HER[employer]IST Work Phone: NOES FB ORTHOPAEDICSStart: 10-26-2024 End: 09-58-8453ynnuvkiqmtFKGTM T OLSENNot AvailableStart: 10-26-2024 End: 79-25-4950Xqlvyf outpatient visit 25 minutesKehinde Gonzalez NP Work Phone: NOOY FB ORTHOPAEDICSComment on above:Primary osteoarthritis of left knee (Primary Dx); Acute pain of left kneeStart: 10-08-2024 End: 94-53-3011fnaaawzgcgXILWVKE [facility] Hospitaltart: 07-06-2024 End: 70-12-3193bkfwxecqzgZMTFEA Tony MCKEONFacility:[facility] Hospitaltart: 07-06-2024 End: 42-03-0376Ahtxbo outpatient new 45 minutesJustus Braxton MD Work Phone: GastroenterologyComment on above:Subepithelial lesion of esophagus (Primary Dx); Hiatal hernia; Gastroesophageal reflux disease, unspecified whether esophagitis present; DiverticulosisStart: 05-28-2024 End: 90-98-6041gugxepqvgpWCIBKV BRAUNFacility:EU evueStart: 05-28-2024 End: 86-99-5899Jptqqdr encounter procedureOlivia Woodard [facility] start: 05-27-2024 End: 08-95-7467Agijeljdf encounterJustus Braxton MD Work Phone: GastroenterologyComment on above:AppointmentStart: 05-21-2024 End: 27-67-3582eevubtvyesAtydocw A. MouchliFacility:FTMCStart: 05-21-2024 End: 02-73-4983Nstndty encounter procedureMomora A. Jericholi [facility] Start: 05-01-2024 End: 40-25-3981uyzbapzhpkBzxgiig A. MouchliFacility:FTMCStart: 05-01-2024 End: 04-39-3106Tljhypm encounter procedureMohamad A. Mouchli [facility] Start: 04-27-2024 End: 86-19-7149wpvlakvxvgPMBTPSJ [facility] Start: 97-07-6670hmvttmvaxmTxgryaa MouchliFacility:EU NorwalkStart: 04-16-2024 End: 35-75-8086kdhesavpyxQqpxgcb A. MouchliFacility:[facility] DHStart: 04-16-2024 End: 68-70-6871Zhmwlug encounter procedureMohamad A. Mouchli [phone]-EuhphGalion Hospital Digestive [facility] Start: 03-24-2024 End: 37-37-8815exxziishzgVfrjrcialOur Lady of Mercy Hospital Work Phone: Start: 03-24-2024 End: 66-95-5350Pmxalsl encounter procedureAtrium Health Phys[facility] Work Phone: Start: 08-19-2023 End: 29-91-9057ncqbvcyzvjCekmdn Braun Other [employer] Other Start: 33-35-8258Offupihro encounterMarmanny St. [facility] Hospitaltart: 12-25-2022 End: 26-98-8954aykdrtfzznBYOYJEO TUCKERFacility:A6Qmtpl: 11-22-2022 End: 43-27-1499tyubdwsevnII JACOB Jimenez BRAUNFacility:D4Sboxp: 11-20-2022 End: 93-55-6756mvmqdvtijcUOKWKPM TUCKERFacility:Q7Bkppo: 11-12-2022 End: 72-86-9246ajkrxdjperETZLKSI TUCKERFacility:B8Czmav: 10-09-2022 End: 39-64-2262urmvbryksjWCHNNCX BOESFacility:G4Nouwb: 08-24-2022 End: 90-85-4291muaiynidddGS NONE LISTED REQUESTFacility:D3Vkcgk: 08-09-2022 End: 21-71-4471qvqflziqmhSulepx Linda Other [employer] Other Start: 31-89-5545Lrwvga outpatient visit 15 minutes Jacob LindaOhioHealth Hardin Memorial Hospitaltart: 07-31-2022 End: 80-30-1210auizrpikwrWBKGLVV ALGHOTHANIFacility:Z1Ezoof: 07-27-2022 End: 32-68-0962yrrwbfishlMszgjo Linda Other [employer] Other Start: 47-74-9380Rssbzuaqg encounterMarcia St. [facility] Specialty Hospitaltart: 07-25-2022 End: 93-35-4931gykqidujjnZmltq Keller Other [employer] Other Start: 55-54-4303Ejtlll outpatient visit 25 minutes Mary OntiverosFPAbimael Urgent Care ClydeStart: 06-25-2022 End: 72-32-4501jzvjmmweniTAIFCDR BOESFacility:U7Kplzb: 06-01-2022 End: 03-24-3628seopwqhpwuVA SAMER KHOURIFacility:G1Wakum: 05-02-2022 End: 82-03-8210bhckzcssexGGVJPOK BOESFacility:J4Oidfu: 98-10-9486Bqqgz health examinationMarcia Mckeon Other [facility] Other Start: 02-28-2022 End: 45-89-2160vncosdswjhNehxuz Marquita Other [facility] Other Start: 65-08-9444Kptlmm outpatient new 20 minutes Casstha JuárezFPG Urgent Care ClydeStart: 02-26-2022 End: 31-95-8573ytxttalbbpJCENFYK ALGHOTHANIFacility:N0Glyxh: 01-01-2022 End: 76-76-6708Kbgwklrngc and management of inpatientMARCIA BRAUNFacility:[facility] Start: 01-01-2022 End: 73-91-4181Pmygezuvkw and management of inpatientMARCIA BRAUNFacility:[facility] Start: 12-30-2021 End: 41-96-0415odswrbwarbMHVJQM BRAUNFacility:[facility]tart: 12-18-2021 End: 17-93-8779nchhoykqniLXWSKK BRAUNFacility:[facility] Procedures DateProcedureProcedure DetailPerforming ClinicianStart: 67-34-8112Zxurdsffumytxz aspir&/inj major jt/bursa w/o usGrant T Sunday [employer] HER[employer]IST Work Phone: Start: 94-09-8893Bevcpezpij examination knee 1/2 views Kehinde Gonzalez [employer] HER[employer]IST Work Phone: Start: 46-34-7924HskvgrbdwfrLcelyey Mouchli Start: 69-86-1078RyqgbkmcloleqxpdltkosgipfdWeffrux Mouchli Start: 42-06-6201Pzldjpa of coronary artery bypass graftingH/O four vessel coronary artery bypass graftKehinde Gonzalez CHINESE HERBALIST Work Phone: Start: 50-63-6180Fagyytjm screenJACOB MCKEONComment on above:Performed By: #### [id number] ####[facility] [place] [address], USAStart: 84-89-4395Htndgnd examination of patientJacob Mckeon Other Start: 21-20-4423Bthedydlg for malignant neoplasm of prostateJacob Mckeon Other ColonoscopyMohamad Mouchli Open heart surgeryHenrico [facility] Yamilet Plan of Treatment DateCare ActivityDetailAuthorStart: 80-70-1529KCX Vaccine (1 - 1-dose 75+ series)RSV Vaccine (1 - 1-dose 75+ series)[facility]art: 05-25-2025 End: 75-64-9178Twuettt encounter dslnpqguh06/28/2025 8:00 AM EDT Office Visit [facility] [address] [place] [address] Jr. Dinora Snyder, DO [address] [facility] [address] [place] [address] [facility]THOPAEDICSStart: 11-24-2024 End: 79-51-0846Hfsfsae encounter procedureNOMS FB ORTHOPAEDICSComment on above: ArrivedStart: 07-06-2024 End: 64-64-5904Fmovycz encounter xsqyicsql08/09/2024 3:30 PM EST Office Visit Gastroenterology [address] [place] [address] [place] [address] [place] [address] Discuss EGD/EUS radial and linear with FNB, per encounterGastroenterology Comment on above:Discuss EGD/EUS radial and linear with FNB, per encounterStart: 83-09-6045Mjkzu-19 Vaccine ( season)Covid-19 Vaccine ( season)[facility]ertart: 29-70-6827Vgnqjvblk vaccinationInfluenza Vaccine (#1)[facility]ertart: 10-34-9146Liutrjv Directive DiscussionAdvance Directive DiscussionDiley Ridge Medical Centertart: 67-86-9370Webpkodjuccg Vaccine: 65+ (1 of 1 - PCV)Pneumococcal Vaccine: 65+ (1 of 1 - PCV)[facility]ertart: 26-12-0861Orqsgiaf Vaccine (1 of 2)Shingrix Vaccine (1 of 2)[facility] Start: 94-86-1791Tfwcqtrn ScreeningDiabetes ScreeningDiley Ridge Medical Centertart: 78-20-9407Aikkvnyus for malignant neoplasm of colonDiley Ridge Medical Centertart: 25-77-1431Bcuag panelLipid ScreeningDiley Ridge Medical Centertart: 51-15-2109Hhzrl microalbumin profileDTaP,Tdap,Td Vaccine (1 - Tdap)[facility]ertart: 41-90-0568Muqmci PCP Team Chronic Disease VisitAnnual PCP Team Chronic Disease VisitDiley Ridge Medical Centertart: 19-18-7923Pzxdvjx ScreeningAnxiety Screening [facility]ertart: 22-74-9344Zimrwbzjjk ScreeningDepression Screening [facility]ertart: 95-28-1742Khoyctoxv B surface antibody levelLDL CholesterolDiley Ridge Medical Centertart: 40-90-4879Ybvtmspee C screeningHepatitis C ScreeningDiley Ridge Medical Centertart: 48-77-7739Mbrcennkf aortic aneurysm screening Abdominal Aortic Aneurysm ScreeningMarymount Hospital End: 14-75-1176ZLB - THERAPEUTIC, EUS, OR TUBE INTERVENTIONSEGD - THERAPEUTIC, EUS, OR TUBE INTERVENTIONS Endoscopy Routine Subepithelial lesion of esophagus 1 Occurrences starting 07/06/2024 until 5CF[facility] Work Phone: comment on above:1 Occurrences starting 07/06/2024 until 07/06/2025 Immunizations Immunization DateImmunizationNotesCare TyklkotkJcemtkhp90-32-7663dhoyyhgnd, high dose seasonal, preservative-freeJacob Mckeon MD Work Phone: [facility]11-08-2022influenza (HD-IIV4) vaccine, age 65+ yr, high dose, quadrivalent, PF (FLUZONE HIGH-DOSE) Justus Braxton MD Work Phone: cMagruder Memorial HospitalYtbmkz71-53-8225bdnkufwcs virus vaccine, split virus (incl. purified surface antigen)Jacob Mckeon Other [employer] Other [id number] virus vaccine, unspecified formulationCommunity [facility] Center11-08-2022Prevnar 20Jacob Mckeon Other [facility]10-05-2018influenza virus vaccine, split virus (incl. purified surface antigen)Jacob Mckeon Other [employer] Other [phone] virus vaccine, unspecified formulationCommunity [facility] Center10-05-2018influenza, injectable, quadrivalent, preservative freeJustus Braxton MD Work Phone: cMag[facility] HospitalQisadq81-87-6779pwkjfxoky virus vaccine, unspecified formulationMomora Mooney [phone]-LzozvGalion Hospital Digestive Iulocq29-23-7492 influenza, seasonal, injectable, preservative freeJustus Braxton MD Work Phone: cMag[facility] HospitalIlpgvh91-61-9090wxkpzza and diphtheria toxoids, adsorbed, preservative free, for adult use (5 Lf of tetanus toxoid and 2 Lf of diphtheria toxoid)Jacob Mckeon Other [facility]11-02-2016zoster vaccine, liveMarcia Mckeon Other [facility]10-07-2016influenza virus vaccine, unspecified formulationMomora Tuandemi 244-2381Zpdumu-NefoaGalion Hospital Digestive Kuhzye23-69-9869 influenza, seasonal, injectable, preservative freeJustus Braxton MD Work Phone: cMag[facility] HospitalVlwfmc88-98-3917qeewead and diphtheria toxoids, adsorbed, preservative free, for adult use (5 Lf of tetanus toxoid and 2 Lf of diphtheria toxoid)Jacob Mckeon Other [facility] Payers DatePayer CategoryPayerPolicy [id number] Health InsuranceMEDICAL MUTUAL [id number] O MEDICARE SUPPLEMENT [id number] 2021- [phone] [address] [place] [address] [id number] 2019Medicare [id number] [id number] 1960 Fstj-fag1[id number] [id number] 2.16.840.1.672322.3.57[id number] 2.16.840.1.974202.3.57[id number] 2.16.840.1.334086.3.57[id number] 2.16.840.1.026283.3.579.2.31063-74-1376Ijqvrnw8505922 2..840.1.296427.3.579.2.98219-12-0429Zpnaxpw3812142 2.840.1.711531.3.579.2.29052-11-8722Zxbzcfl0994048 2.840.1.343040.3.579.2.36457-16-9229Ujlfegx9569258 2.840.1.072620.3.57[id number] 2..840.1.738563.3.579.2.30583-54-9845Pstwvhz5154371 2..840.1.269978.3.579.2.58816-43-1649Scmstfn6276705 2.840.1.691224.3.579.2.43307-48-9081Swtrnnl9084081 2.840.1.936659.3.579.2.21193-41-4321Ammfoqu2890411 2..840.1.987938.3.579.2.08419-44-6865Fntfbhd5788253 2.16.840.1.585755.3.579.2.49878-30-4557Iwkhdif6469958 2.16.840.1.476069.3.579.2.90400-97-3504Rpcgigq47728908 2.16.840.1.216193.3.579.2.[id number] 2.16.840.1.441986.3.579.2.09871-38-9629Rwkraey35459015 2.840.1.822340.3.57[id number] 2..840.1.117680.3.579.2.76145-99-8863Zutubak0022954 2.16.840.1.663636.3.579.2.572562-10-7647Jcrjcbs0600809 2.840.1.554861.3.579.2.903664-78-3043Brsxiss6498095 2.840.1.208129.3.579.2.114081-62-7384Accfmbw91398819 2.840.1.638815.3.579.2.23875-20-7979Xustgsr83851945 2.840.1.937395.3.579.2.12858-32-7471Ssaldrq63948653 2.840.1.589119.3.579.2.22611-68-2389Pzozsdm70558145 2.840.1.57[id number] 2.840.1.834051.Unknown [id number] 2.840.1.720437.3.579.2.593 Social History DateTypeDetailFacilityStart: 07-06-2024 End: 09-23-7002Kah [facility]: 17-98-5263Fkp Assigned At BirthL[facility]Health [facility] CenterStart: 04-16-2024 End: 54-41-9959Dsrovjj smoking statusNever smoked tobacco (finding)[facility]ive HealthTobacco smoking statusNeverGalion Hospital Digestive HealthStart: 06-12-2023 End: 58-85-9724Xsxnufk smoking statusEx-smoker (finding)[facility] BellevueTobacco smoking status NHISTobacco smoking consumption unknownRochester ClinicStart: 16-69-5394Eve assigned at birthNot on fileMarymount Hospital End: 72-66-3393Dxcgert of tobacco useCurrent smokerMarymount Hospital End: 64-18-2480Uqidzgh of tobacco useCigarette SmokerDiley Ridge Medical Centertart: 06-12-2023 End: 01-42-5595Baeollz use and exposureSmokeless tobacco non-userDiley Ridge Medical Centertart: 07-06-2024 End: 65-88-9089Gusdrasnt beverage intakeCurrent drinker of alcohol (finding) [facility] ClinicStart: 07-06-2024 End: 56-63-2624Fmrdrzk of Social functionDiley Ridge Medical Centertart: 07-06-2024 Alcohol CommentSociallyCmercer county community hospital ClinicStart: 76-87-1699Bouyjlq CommentLast smoked: 1-5 yearsNOMS HealthcareStart: 33-20-8286Qmnvaff CommentCoffee 2-3 cups per dayNOMS HealthcareSexMale (finding)[facility] Medical Equipment Procedure CodeEquipment CodeEquipment Original TextEquipment IdentifierDates Lancets -Start: 83-33-7771Gklbp Sugar Diagnostic (Accu-Chek Guide Test Strips) stripStart: 10-53-3732Ouzku Sugar Diagnostic (Accu-Chek Guide Test Strips) strip Start: 06-11-2024 End: 53-61-4302Pmxpx Sugar Diagnostic (Accu-Chek Guide Test Strips) stripStart: 68-58-0635Qecsr Sugar Diagnostic (Accu-Chek Guide Test Strips) stripStart: 06-11-2024 End: 39-88-9491Wznwa Sugar Diagnostic (Accu-Chek Guide Test Strips) stripStart: 32-44-4098Sucfk Sugar Diagnostic (Accu-Chek Guide Test Strips) stripStart: 06-11-2024 End: 06-16-2024 Functional Status WwrqGzelabxrjwQeptpzHshjmhxn16-11-8295Rxghqzkjiv StatusN/AExecutive [facility] of [facility]10-04-2024Functional StatusN/[facility]09-19-2024Functional StatusN/[facility] Clinical Notes 01-24-2022 to 03-30-2025 Note Date & MkscSmyiGwfzmflp52-52-0830 Evaluation note* Diagnosis Onset Date Resolution Status Admit Date Type 2 diabetes mellitus with hyperglyce [facility] acuteptember 2024 3:07pm [facility] Work Phone: 1(131) 664-645909-02-2025 Evaluation note* Diagnosis Onset Date Resolution Status Admit Date Type 2 diabetes mellitus with hyperglyce ayesha acutept2024 3:07pmClass 2 obesity with body mass index (BMI) of 36.0 to 36.9 in adultacuteSeptember 2024 11:12amType 2 diabetes mellitus with hyperglycemiaacuteSeptember 2024 11:12amType 2 diabetes mellitus with other circulatory complicationsacuteSeptember 2024 11:12am [facility] Work Phone: 1(917) 119-739807-03-2025 NoteCardiovascular Medicine [facility] SUBJECTIVE No chief complaint on file. Oswald [...] THE MORNING, Disp: 90 tablet, Rfl: 3 vsybpiefiswe-wqyl-svfhdytq-folic acid (Multivitamin 50 Plus) tablet, Take 1 [...] regular rhythm. Pulses: Normal (more content not included)...[facility] 11-24-2024 History of Present illness Narrative* Jr. Dinora Snyder, DO - 11/24/2024 8:00 AM EDT Images from [...] for requiring urgent evaluation. documented in this encounterMadison Medical [id number] NotePatient Education Nephrology ESWL for Kidney Stones [...] including vitamins, herbs, eye drops, creams, and mrgz-uld-yzhgytt medicines. ??? Any problems you or family [...] care provider tells you to. ??? Taking uxux-phs-sezwuvt medicines, vitamins, herbs, and supplements. Tests You [...] given to you b (more content not included)...[facility]04-22-2025 Telephone encounter Note* Telephone Encounter - Charmaine Burns - 11/17/2024 1:31 PM EDT Patient's called and left vm. She stated that the cortisone injection that he had 1 month ago has not helped at all. Please advise [phone]. [facility] Medical [id number] Miscellaneous Notes* Telephone Encounter - Charmaine Burns - 11/17/2024 1:31 PM EDT Patient's called and left vm. She stated that the cortisone injection that he had 1 month ago has not helped at all. Please advise [phone]. documented in this encounterMadison Medical [id number] History of Present illness Narrative* Kehinde Gonzalez, YE - 10/26/2024 10:45 AM EDTAssociated Order(s): L [...] knee showed severe varus deformity with near here-pi-rgvh articulation to the medial joint line, flattening [...] left knee with varus deformity Kehinde Gonzalez APRN-PARTNER MANAGEMENT CONSULTANT L Inj/Asp: L knee on 10/26/2024 11:12 [...] develop for requiring urgent evaluation. Kehinde Gonzalez WORKERS COMPENSATION CLAIMS EXAMINER-PARTNER MANAGEMENT CONSULTANT documented in this encounterMadison Medical [id number] NoteCardiovascular Medicine [facility] SUBJECTIVE Chief Complaint Patient presents with [...] DAY, Disp: , Rfl: Accu-Chek Softclix Lancets [facility] [place], USE 1 LANCET DAILY TO CHECK BLOOD [...] on 04/27/2024), Disp: 90 tablet, Rfl: 3 vmvqvsxdtnfz-qkua-jrcublox-folic acid (Multivitamin 50 Plus) tablet, Take 1 [...] pulses. Heart sounds: Norm (more content not included)...[facility]03-13-2025 NotePatient here for 6 month [...] for chest pain. 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 10/4/24 EGD was performed per Dr. Mooney. Z-line [...] MORNING *DO NOT CRUSH OR CHEW* - Lamaoygtxktjk-Esupnjdm-Ixtpri (MULTIVITAMIN 50 PLUS) tab; Take 1 tablet [...] Justus Braxton MD Gastroenterology, Hepatology and Nutrition [facility]12-09-2024 History and physical note* Justus Braxton MD [...] MORNING *DO NOT CRUSH OR CHEW* - Jlkbkpsfrkfjh-Xgdtwsqk-Heavvy (MULTIVITAMIN 50 PLUS) tab; Take 1 tablet [...] Gastroenterology, Hepatology and Nutrition documented in this encounterMarymount Hospital11-01-2024 Telephone encounter Note * Telephone Encounter - Angel Rodriguez - 05/29/2024 2:37 PM EDT Spoke to patient and scheduled OV with Dr. Braxton on 07/06/24 at [facility] at 3:30 pm per message below. [facility]11-01-2024 Miscellaneous Notes* Telephone Encounter - Angel Rodriguez - 05/29/2024 2:37 PM EDT Spoke to patient and scheduled OV with Dr. Braxton on 07/06/24 at [facility] at 3:30 pm per message below. * [...] you. Marisa Hu RN documented in this encounterMarymount Hospital11-01-2024 Telephone encounter Note * Telephone Encounter - [...] is agreeable. Thank you Marisa Hu RN [facility]10-31-2024 Hospital Discharge instructions Patient Education 05/28/2024 11:21:41 Kidney Stones, Ujrb-mn-Rajm Kidney Stones Kidney stones are rock-like masses [...] Follow these instructions at home: Medicines Take trrh-jqj-ouhdvuo and prescription medicines only as told by [...] provider. Document Revised: 03/08/2023 Document Reviewed: 03/08/2023 [email or web address] Patient Education 2023 [employer]y. Follow Up Care 05/08/2024 09:15:41 With:ISRAEL RUFFIN, Shade Robison, URL Address: [address] [place] [address]- When:6 months Comments:KUGeovanny, ANAMARIA and PSA [facility] 10-31-2024 NoteUrology Office/Clinic Note Chief Complaint referral [...] Skin: No rashes or suspicious lesions Assessment/Plan [facility] referred by Dr. Jacob Mckeon for BPH [...] E&M of New Patient High 60-74 Min 03136 Influenza immunization status assessed 1030F Medication list [...] Urnls Dip Stick Auto w/o Microscopy POC 82374 2. Kidney stone, (N20.0: Calculus of kidney)Kidney [...] stone prevention diet/fluids with patient. -Will call [facility] for addendum to CT report from 04/17/24 for stone sizing -KUB/ANAMARIA at [facility] in 6 months (reminder in place) -Increase fluids, add lemon/sleetmute to diet -Low animal protein, low salt diet -Consider metabolic workup in the future -Call our office or go to ER for severe flank pain, N/V, fever/chills, inability to urinate -F/U [address] Wood to review KUB/ANAMARIA Ordered: E&M of New Patient High 60-74 Min 20440 3. Multiple renal cysts (Q61.02: Congenital multiple [...] to be quite large. (more content not included)...[facility] CenterComment on above:Result Comment: Electronically Signed By: Olivia Dumont.sinan\Date and Time Signed: 05/28/24 11:33 [id number] Note Patient Education Urology Kidney Stones Kidney [...] these instructions at home: Medicines ??? Take zvth-mwg-ypqzunv and prescription medicines only as told by [...] provider. Document Revised: 03/08/2023 Document Reviewed: 03/08/2023 [email or web address] Patient Education ? 2023 [employer] Oy.[facility] 05-27-2024 Telephone encounter Note* Telephone Encounter - [...] on Plavix Thank you. Marisa Hu RN [facility]10-04-2024 NoteProgress Note-Physician Patient: OSWALD OCHOA Age: 69 years Sex: Male : 1955 Associated Diagnoses: None Author: Randell Oneal MD Postoperative Information Postoperative disposition: Postoperative disposition: To PACU. Optimetrix number: Optimetrix number [id number]. Anesthetic utilized: General. Health Status Allergies: Allergic [...] Discharge when meets criteria ( To home ).[facility] CenterComment on above:Result Comment: Electronically Signed By: Randell Oneal MD\.br\Date and Time Signed: 05/01/24 16:04 EDT 05-01-2024 Evaluation + Plan noteExtracted from:Title:ANES Post-operative Note---GeneralAuthor:Randell Oneal MDDate:05/01/24 Plan Transfer/Discharge: Transfer/Discharge Discharge when meets criteria ( To home ). Extracted from:Title:ANES Pre-operative Note uthor:Randell Oneal MDDate: 05/01/24 Plan [place] Society of Anesthesiologists (ASA) physical status classification: Class III. Anesthetic Preoperative Plan: Anesthesia General.[facility] 10-04-2024 Hospital Discharge instructions Patient Education [...] unsweetened, w/added ascorbic acid 1 cup 0.5 [place] 1 cup 0.7 Vegetables Cooked Green beans 1 cup 4.0 Carrots 1/2 cup sliced 2.3 Peas 1 cup 8.8 Potato (baked, with skin) 1 medium potato 3.8 Raw [place] (with peel) 1 cucumber 1.5 Lettuce 1 [...] 8.7 Peanuts 1/2 cup 7.9 Chart from [facility] 2013. SEEK IMMEDIATE MEDICAL CARE [...] Nutrient Database for Standard Reference. Available at http://www.Fabrus.usda.gov/fnic/foodcomp/search/. Information adapted from: ExitCare Patient Information [address] [address] [facility] CenterNon[facility] Medical Technologies 2012 http://www.[employer]/contents/tzubpuzgqdij-ndynkzr-srxjlo-the-basics 05/01/2024 10:17:07 Colonoscopy, Care After Surgery Himanshu [...] Care 04/16/2024 11:17:17 With:Vinicio RUFFIN, Alissa Nunez, [facility] Address: [address] [place] [address], [address] [place] [address]- [phone] When: Unknown Comments:Office will call Date and Time of Follow-up Appt. [facility] 10-04-2024 NotePatient Education - Text Diverticulosis [...] unsweetened, w/added ascorbic acid 1 cup 0.5 [place] 1 cup 0.7 Vegetables Cooked Green beans 1 cup 4.0 Carrots 1/2 cup sliced 2.3 Peas 1 cup 8.8 Potato (baked, with skin) 1 medium potato 3.8 Raw [place] (with peel) 1 cucumber 1.5 Lettuce 1 [...] 8.7 Peanuts 1/2 cup 7.9 Chart from [facility] 2013. SEEK IMMEDIATE MEDICAL CARE [...] of Agriculture (USDA) National Nutrient Database at: http://www.Fabrus.usda.gov/fnic/foodcomp/search/ Created using data from the USDA National Nutrient Database for Standard Reference. Available at http://www.Fabrus.usda.gov/fnic/foodcomp/search/. Information adapted from: [facility]Del[facility]? Patient Information ?2009 [employer]'s Style [employer]. [facility] 2013 http://www.[employer]/contents/xlfqimhyaseo-hgvjlck-slexaz-the-basics Colonoscopy Care After Surgery Please read the instructions outlined below and refer to this sheet in the next few weeks. These discharge instructions provide you with general information on caring for yourself [facility] Your doctor may also give you specific [...] doctor. Begin wit (more content not included)...[facility]10-04-2024 NoteProgress Note-Physician Patient: OSWALD OCHOA [...] Oral, Daily Cialis 5 mg, Oral, q72hr [facility] , Oral, Daily glipiZIDE 10 mg ER [...] All Problems Chronic GERD / SNOMED CT 916167850 / Confirmed Hiatal hernia / SNOMED CT 164081089 / Confirmed Obesity due to excess calories / SNOMED CT 6152907173 / Confirmed, Active Problems (3) Chronic GERD Hiatal hernia Obesity due to excess calories , HTN, HLD, NIDDM, CAD s/p CABG x 5 2021 Histories Past Medical History: No active or resolved past medical history items have been selected or recorded. Family History: Heart disease Father Procedure history: Colonoscopy ([id number]). Social History Social & Psychosocial Habits Tobacco [...] review: No qualifying data available . Plan [place] Society of Anesthesiologists (ASA) physical status classification: Class III. Anesthetic Preoperative Plan: Anesthesia General.[facility] Comment on above:Result Comment: Electronically Signed By: Jm RUFFIN, Randell Bernardo\.br\Date and Time Signed: 05/01/24 09:55 [id number] NoteCardiovascular Medicine [facility] SUBJECTIVE Oswald Ochoa is a 69 [...] OR CHEW*, Disp: 90 tablet, Rfl: 3 pomxgxzkoelr-wiba-xeopujdq-folic acid (Multivitamin 50 Plus) tablet, Take 1 [...] normally he is wit (more content not included)...[facility]01-22-2024 Evaluation note* Encounter Date Diagnosis Assessment Notes Treatment Notes Treatment Clinical Notes Jul, Type 2 diabetes patricia itus with hyperglycemia, unspecified whether exterminator termite insulin use (ICD-10 - E11.65) [employer] Other 01-12-2023 Evaluation note* Encounter Date Diagnosis Assessment Notes Treatment Notes Treatment Clinical Notes Jul, Colitis (ICD-10 - K52.9) Jul,oronary artery disease, unspecified vessel or lesion type, unspecified whether angina present, unspecified whether [place] or transplanted heart (ICD-10 - I25.10)New medicine list and discussed symptoms with patient and 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 Jul,Type 2 diabetes mellitus with hyperglycemia, unspecified whether exterminator termite insulin use (ICD-10 - E11.65)Consider medication change after he resolves from present symptoms. [employer] Other 12-28-2022 Evaluation note* Encounter Date Diagnosis Assessment Notes Treatment Notes Treatment Clinical Notes Jun, Cough (ICD-10 - R05.9) Jun,Viral URI with cough (ICD-10 - J06.9) Advised [...] treatment plan. Patient left in stable condition Jun,ore throat (ICD-10 - J02.9) [employer] Other 08-03-2022 Evaluation note* Encounter Date Diagnosis Assessment Notes Treatment Notes Treatment Clinical Notes Feb, Cough, unspecified type (ICD-10 - R05.9) Feb,OVID-19 (ICD-10 - U07.1)Discharge Instructions for COVID-19 (Suspected or Confirmed ) material was printed Drink plenty fluids, get plenty of rest. Take Tylenol as needed for pain. Continue your home medications as prescribed. Follow-up with your family physician if no improvement in 2 to 3 days. , Discharge Instructions for COVID-19 (Suspected or Confirmed ) material was printed [employer] Other 06-29-2022 NoteMR#: [id number] [facility] Pt. Name: Oswald Ochoa Admitted: [...] COURSE: 66-[facility] an episode of postprandial left-sided chest pain that lasted for about 2 hours. Chest pain was associated with shortness of breath and tingling of both upper extremities and generalized weakness. He was then admitted to [facility] for further evaluation and CT surgery [...] for him to see his PCP and electrical parts reconditioner. Electronically Signed by: Jose R Guzman MD [...] Henley CNP Date Trans: 01/23/2022 10:56 P/jackie DN_[id number] [facility] note Future Appointments Appointment Date:05/01/2024 09:15:00 AM Scheduled Provider: Location:[facility] Appointment Type:Surgery [facility] Evaluation + Plan note Future Appointments Appointment Date:05/28/2024 10:00:00 AM Scheduled Provider:Olivia Dumont Location:[facility] Appointment Type:URO New Patient [facility] Evaluation + Plan note Future Appointments Appointment Date:11/20/2024 09:45:00 AM Scheduled Provider:Shade WOOD MD Location:[facility] Appointment Type:URO Office Visit Diagnostic Tests Pending * PSA Total 05/28/24 [facility] evaluation noteNo InformationNort pbsi Other Evaluation noteNo assessment information available [facility] Work Phone: Evaluation note* Diagnosis Subepithelial lesion of esophagus- Primary Hiatal hernia Diaphragmatic hernia without mention of obstruction or gangrene Gastroesophageal reflux disease, unspecified whether esophagitis present Diverticulosis Diverticulosis of colon (without mention of hemorrhage) documented in this encounter [facility]* Diagnosis Primary osteoarthritis of left knee- Primary Acute pain of left knee documented in this encounter [facility] HealthcareEvaluation note* Diagnosis Primary osteoarthritis of left knee- Primary Acute pain of left knee documented in this encounter [facility] general Narrative - Reported* Type Description Date Medical History Hypertension Surgical HistoryOpen [id number] Historysee above [employer] Other History general Narrative - Reported* Type Description Date Medical History coronary artery disease Medical HistorydiverticulitisMedical HistoryhyperlipidemiaMedical Historytype 2 diabetesMedical HistoryHypertensionSurgical HistoryOpen [id number] Historykidney stoneSurgical HistoryhemicolectomySurgical Historyopen cholecystectomySurgical Historyright inguinal herniaSurgical Historyleft ventral herniaHospitalization Historysee above [employer] Other Hospital course Narrative No data available for this section [facility] Hospital Discharge instructions No data available for this section [facility] Progress note No data available for this section [facility] Reason for referral (narrative)* Outpatient Procedure (Routine) - New RequestSpecialtyDiagnoses / ProceduresReferred By Contact Referred To [facility]GE[facility] Diagnoses Subepithelial lesion of esophagus Procedures EGD - THERAPEUTIC, EUS, OR TUBE INTERVENTIONS EGD INTRMURAL US NEEDLE ASPIRATE/[place] [address] [place] [address] [facility] [place] [address] [place] [address] Referral IDStatusReasonStart DateExpiration DateVisits RequestedVisits [id number] Request Auto-Generated Referral [facility] for referral (narrative)No reason for referral information availableMercy Health Fairfield Hospital Work Phone: Summary Purpose Family History Relationship Condition Age at Onset Recorded Date/T santino father Heart disease Unknown DeceasedUnknownmotherDeceasedUnknownDiabetes mellitusUnknown Advance Directives Advance Directive Response Recorded Date/ Time Advance Directives No October 02 12:00pm Chief Complaint and Reason for Visit Chief Complaint stomach issues Chief Complaint Admit Date bp prescription question March 30, 2025 3:07pm Chief Complaint Admit Date bp prescription question March 30, 2025 3:07pm Follow up [facility] April 14, 2025 11:12am Reason for Visit Admit Date Type 2 diabetes mellitus with hyperglyce [facility] March 30, 2025 3:07pm Chief Complaint Admit Date bp prescription question March 30, 2025 3:07pm [facility] April 14, 2025 11:12am Amb Documentation May 17, 2025 3 :50pm Mike hos f/u on 05/15; Blood pressur e dropped May 24, 2025 10:47am Reason for Visit Admit Date Type 2 diabetes mellitus with hyperglyce [facility] March 30, 2025 3:07pm Class 2 obesity with body ma ss index (BMI) of 36.0 to 36.9 in adult April 14, 2025 11:12am Type 2 diabetes mellitus with hyperglyce [facility] April 14, 2025 11:12am Type 2 diabetes mellitus wit h other circulatory complications April 14, 2025 11:12am Additional Source Comments (unrecognized sect ion and content) No Status Records FoundNo Status Records FoundNo Status Records FoundNo Status Records FoundNo Status Records FoundNo Status Records FoundNo Status Records FoundNo Status Records FoundNo Status Records FoundNo Status Records Found INFORMATION SOURCE (unrecogn ized section and content) DATE CREATED AUTHOR 01/25/2022 [facility] DATE CREATED AUTHOR AUTHOR'S ORGANIZ ATION 01/04/2023 [facility] DATE CREATED AUTHOR AUTHOR'S ORGANIZ ATION 05/09/2024 [facility] DATE CREATED AUTHOR AUTHOR'S ORGANIZ ATION 05/11/2024 [facility] DATE CREATED AUTHOR AUTHOR'S ORGANIZ ATION 05/22/2024 [facility] DATE CREATED AUTHOR AUTHOR'S ORGANIZ ATION 07/09/2024 [facility] DATE CREATED AUTHOR AUTHOR'S ORGANIZ ATION 10/24/2024 [facility] DATE CREATED AUTHOR AUTHOR'S ORGANIZ ATION 11/25/2024 [facility] DATE CREATED AUTHOR AUTHOR'S ORGANIZ ATION 12/25/2024 [facility] DATE CREATED AUTHOR AUTHOR'S ORGANIZ ATION 01/30/2025 [facility] REASON FOR VISIT (unrecogniz ed section and content) ReasonCommentsAppointmentReasonCommentsClinician To Clinician ConsultReason CommentsPainReasonOnset RyzhMrduijabVsopqydlu96/22/2025ReasonCommentsPain Care Teams (unrecognized sec tion and content) Team Status: Active Member Role Status Dates Jacob Mckeon MD Primary Care Provider Active Team Status: Active Member Role Status Dates Jacob Mckeon MD Primary Care Provider Active Start: January 28, 2025 Marcelino Stern NP-CAttending ProviderActiveStart: January 28, 2025 Team Status: Inactive Member Role Status Dates Jacob Mckeon MD Primary Care Provider Active Start: March 30, 2025 End: March 30, 2025Jacob Mckeon MDAttmigue ProviderActiveStart: March 30, 2025 End: March 30, 2025 Team Status: Inactive Member Role Status Dates Jacob Mckeon MD Primary Care Provide r, Attending Provider Active Start: March 24, 2024 End: March 24, 2024Team MemberRelationshipSpecialtyStart DateEnd Date Jacob Mckeno MD [address] [facility] [place] [phone] PCP - GeneralFamily Tqlyiskr96/1/24Team MemberRelationshipSpecialtyStart DateEnd Date Jacob Mckeon MD [address] [facility] [place] [phone] PCP - GeneralFamily Yqgtajqu40/1/24Team MemberRelationshipSpecialtyStart DateEnd Date Jacob Mckeon MD [address] [facility], [place] [phone] PCP - GeneralFamily Medicine01/15/23Team MemberRelationshipSpecialtyStart DateEnd Date Jacob Mckeon MD [address] [facility], [place] [phone] PCP - GeneralFamily Medicine01/15/23Team MemberRelationshipSpecialtyStart DateEnd Date Jacob Mckeon MD PCP - GeneralFamily Medicine01/15/23Team MemberRelationshipSpecialtyStart DateEnd Date Jacob Mckeon MD [address] [place] [phone] PCP - GeneralFamily Medicine01/15/23Team MemberRelationshipSpecialtyStart DateEnd Date Jacob Mckeon MD [address] [place] [phone] PCP - GeneralFamily Medicine01/15/23 Team Status: Inactive Member Role Status Dates Jacob Mckeon MD Primary Care Provider Active Start: April 14, 2025 End: April 14, 2025Benita Breaux ProviderActiveStart: April 14, 2025 End: April 14, 2025 Team Status: Active Member Role/Relationship Status Dates Jacob Mckeon MD Primary Care Provider Active Team Status: Inactive Member Role/Relationship Status Dates Jacob Mckeon MD Primary Care Provider Active Start: March 30, 2025 End: March 30, 2025Benita Breaux ProviderActiveStart: March 30, 2025 End: March 30, 2025 Team Status: Inactive Member Role/Relationship Status Dates Jacob Mckeon MD Primary Care Provider Active Start: April 14, 2025 End: April 14, 2025Benita Breaux ProviderActiveStart: April 14, 2025 End: April 14, 2025 Team Status: Active Member Role/Relationship Status Hattie Mckeon MD Primary Care Provider Active Start: May 15, 2025 ILDA [facility] ProviderActiveStart: May 15, 2025 Team Status: Active Member Role/Relationship Status Dates Jacob Mckeon MD Primary Care Provider Active Start: May 17, 2025 Melany Holly ProviderActiveStart: May 17, 2025 Team Status: Inactive Member Role/Relationship Status Hattie Mckeon MD Primary Care Provider Active Start: May 24, 2025 End: May 24, 2025Benita Breaux ProviderActiveStart: May 24, 2025 End: May 24, 2025 Goals (unrecognized section and content) Goals may be documented in a n alternate section Source Comments (unrecognize d section and content) In the event this informatio n is protected by the Federal Confidentiality of Alcohol and Drug Abuse Patient Records regulations: The Federal rules restrict any use of the information to criminally investigate or prosecute any alcohol or drug abuse patient.[facility] HospitalIn the event this information is protected by the Federal Confidentiality of Alcohol and Drug Abuse Patient Records regulations: The Federal rules restrict any use of the information to criminally investigate or prosecute any alcohol or drug abuse patient.[facility] FOR RECORDS PERTAINING TO PATIENTS WHO [...] BE BASED ON THE PRIMARY CLINICAL RECORDS. [facility] [employer] [facility]. provides no warranty or guarantee of the accuracy or completeness of information in this document.
--- NOTE | 2025-06-02 10:50 | XR_ITS ---
The [address] [address] Patient Name: CORNEL GIL MRN: [id number] date: 1955 Sex: M Assigned Patient Location: [facility] Current Patient Location: [facility] Accession/Order Number: [id number] Exam Date: 06/02/2025 10:46 Report Date: 06/02/2025 11:09 At the request of: BEN WOOD MD Procedure: XR abdomen 1V SINGLE VIEW ABDOMEN COMPARISON: 12/10/2024 CLINICAL DATA: Annual follow-up of kidney stones. Supine views of the abdomen and pelvis were obtained. There is scattered small and large bowel air, without disproportionate distention. Mild colonic stool is seen. Both kidneys are partially obscured. There are no obvious radiopaque renal stones on the right. There are potential small stones at the mid and lower pole on the left measuring up to 4 - 5 mm. There are similar calcifications within the pelvis bilaterally, presumably phleboliths given the lack of interval change. No soft tissue masses are seen. There is atherosclerotic plaque. There are mild degenerative changes of the spine. XR/XR abdomen 1V IMPRESSION: CONTINUED LEFT NEPHROLITHIASIS. Impression dictated by: Shirley Bosch M.D. 06/02/2025 11:09 AM Dictation Location: [place] [address] Electronically authenticated by: [id number] Y Date: 06/02/2025 11:09
== END 2025-06-02 10:41 | disposition home or self-care (01) ==
LOC: RAD 10:42
PROVIDERS: PCP Family Medicine; Visit Provider Urology
DX: N20.0 Calculus of kidney (principal)
CPT/HCPCS: 74018

== ENCOUNTER 2025-07-10 22:08 | Emergency (ER) | payer MEDICARE, OTHER, SELFPAY ==
[2025-07-10] VITALS (11 sets, daily range): BP systolic 128–163; BP diastolic 74–107; PULSE 73–90; O2SAT 94–98; BMI 35.7
--- NOTE | 2025-07-10 22:26 | ECG_ITS ---
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 Measurements Intervals [place] Rate: 98 P: 81 [place]: 156 QRS: -80 QRSD: 132 T: 61 QT: 366 QTc: 421 Interpretive Statements 1100 Sinus rhythm 1102 Sinus arrhythmia 2450 Right bundle branch block 2630 Left anterior fascicular block 4164 Twave abnormality, possible anterior ischemia 9150 abnormal ECG Compared to ECG 05/15/2025 17:18:45 Indeterminate axis no longer present Possible ischemia still present Electronically Signed On 07-11-2025 10:31:42 EST by DINORA MALAVE M.D.
--- NOTE | 2025-07-10 22:26 | XR_ITS ---
The [address] [address] Patient Name: CORNEL GIL MRN: [id number] date: 1955 Sex: M Assigned Patient Location: ER Current Patient Location: ED.MAIN Accession/Order Number: [id number] Exam Date: 07/10/2025 23:30 Report Date: 07/10/2025 23:40 At the request of: SUSI DANIEL DO Procedure: XR chest 2V XR chest 2V 07/10/2025 11:34 PM SIGNS AND SYMPTOMS: Acute chest pain, shortness of breath PROTOCOL: Frontal and lateral radiographs of the chest COMPARISON: 05/15/2025 FINDINGS: The trachea is midline. Atherosclerotic changes are noted in the thoracic aorta. There is evidence of prior sternotomy. The heart and mediastinal structures are within normal limits. The lung parenchyma is clear. The bony thorax is intact. Degenerative changes are noted in the thoracic spine. There is evidence of prior cholecystectomy in the right upper quadrant. XR/XR chest 2V IMPRESSION: No acute cardiopulmonary pathology. Impression dictated by: Oscar Ribeiro M.D. 07/10/2025 11:40 PM Dictation Location: [place] [address] Electronically authenticated by: [id number] Y Date: 07/10/2025 23:40
[2025-07-10 22:42] LABS: Hematocrit 41.1 % (42.0-54.0); Hemoglobin 14.6 g/dL (14.0-18.0); Immature Granulocytes Abs Auto 0.02 10^3/uL (0.00-0.03); Immature Granulocytes Pct Auto 0.3 % (0.0-0.5); Lymphocytes Absolute Auto 2.0 10^3/uL (1.2-3.8); Mean Corpuscular HGB Conc 35.5 g/dL (29.9-35.2); Mean Corpuscular Hemoglobin 30.2 pg (25.9-34.0); Mean Corpuscular Volume 84.9 fL (80.0-94.0); Platelet Count 221 10^3/uL (150-450); Red Blood Count 4.84 10^6/uL (4.70-6.10); White Blood Count 7.5 10^3/uL (4.0-11.0)
[2025-07-10 23:02] LABS: Anion Gap 8.9; Blood Urea Nitrogen 9.0 mg/dL (7.0-18.0); Calcium 9.2 mg/dL (8.5-10.1); Carbon Dioxide 27.5 mmol/L (21.0-32.0); Chloride 95 mmol/L (98-107); Estimated GFR (African America >60 (>=60 mL/min/1.73m^2); Estimated GFR (Non-African Ame >60 (>=60 mL/min/1.73m^2); Glucose 194 mg/dL (74-106); Potassium 3.4 mmol/L (3.5-5.1); Sodium 128 mmol/L (136-145)
--- NOTE | 2025-07-10 23:07 | PC.NURSE ---
No edema, good pedal pulse. Lungs clear
--- OUTSIDE RECORDS SUMMARY | 2025-07-10 23:15 | XMS_ITS | Clinical Summary ---
Author Organization [facility] Address [address] [place] [address] Care Team Providers Care Document Preparer Microfilming Name Role Phone Masha Ball MD Primary Care Provider [phone] Allergies No known active allergies Medications MedicationSigDispense QuantityRefillsLast FilledStart DateEnd DateStatus omeprazole (PriLOSEC) [address] capsule Take 1 tablet by mouth in the morning.Active lisinopril 40 mg tablet Indications:Essential hypertensionTAKE 1 TABLET BY MOUTH EVERY DAY IN THE MORNING 90 tablet ctive Additional Information Patient taking differently: 5 mg oral Daily, Reported on 06/09/2025 glipiZIDE (Glucotrol) 5 mg tablet Take 5 mg by mouth in the morning.09/27/2022ctive tadalafil (Cialis) 5 mg tablet Take 5 mg by mouth in the morning.Active omdyurczwbxn-pqgu-xakocota-folic acid (Multivitamin 50 Plus) tablet Take 1 tablet by mouth in the morning.Active ezetimibe (Zetia) 10 mg tablet Indications:Coronary arteriosclerosis,Pure hypercholesterolemiaTake 1 tablet (10 mg) by mouth in the morning. 90 tablet 3Active Additional Information Patient not taking.Reported on 06/09/2025 aspirin 81 mg EC tablet Indications:Atherosclerotic heart disease of ambler coronary artery without angina pectorisTAKE 1 TABLET BY MOUTH EVERY DAY 90 tablet 5Active Accu-Chek Guide test strips strip USE TO TEST BLOOD SUGAR EVERY DAY5Active Accu-Chek Softclix Lancets misc USE 1 LANCET DAILY TO CHECK BLOOD SUGAR*E11.65*4Active latanoprost (Xalatan) 0.005 % ophthalmic solution Administer 1 drop into both eyes at bedtime.Active ascorbic acid (Vitamin C) 500 mg tablet Take 500 mg by mouth in the morning.Active carvedilol (Coreg) 6.25 mg tablet Indications:Benign hypertensive heart disease without congestive heart failure Take 1 tablet (6.25 mg) by mouth with breakfast and with evening meal. 60 tablet 1103/4710526Active Additional Information Patient taking differently: 3.25 mgoral 2 times daily with meals, Reported on 06/09/2025 furosemide (Lasix) 20 mg tablet Indications:Edema, unspecified [...] BY MOUTH IN THE MORNING 90 tablet 506Active semaglutide (Ozempic) 0.25 mg or 0.5 mg (2 mg/3 mL) pen injector Inject 0.25 mg under the skin every 7 (seven) days.5Active Active Problems ProblemNoted DateDiagnosed DateAbdominal pain06/07/2025ntiplatelet or antithrombotic long-term use06/07/2025Enlarged xspkovwq67/10/2025Type 2 diabetes mellitus with /10/8010Bvtqstssvmdfjr44/13/2025GERD (gastroesophageal reflux disease)10/08/2024Hiatal myyeun8210/08/2024Kidney stones 10/08/2024Renal cyst10/08/2024H/O four vessel coronary artery bypass graft 05/23/2022 Overview (05/23/2022): CABG x 5 on 01/03/2022 Assessment & Plan (05/08/2023 10:40 AM EDT): stable Assessment & Plan (05/23/2022 1:30 PM EDT): S/P CABG x 5 on 01/03/2022 Coronary xqbuctsgpnjeiwad45/31/2022 Assessment & Plan (05/08/2023 10:40 AM EDT): [...] diet, regular exercise and continue all medications Zovztgi51/31/2022Benign prostatic qedzfjemqrf69/20/2022Dyspnea on exertion 12/15/2021 Assessment & Plan (05/08/2023 10:40 AM EDT): Stable without worsening WHITNEY. Assessment & Plan (05/23/2022 1:55 PM EDT): Stable Dyspnea, tolerating cardiac rehab/exercise well Erectile /20/8419Lpjwiocrcwkyap99/20/2022 Assessment & Plan (06/27/2022 10:01 AM EST): Continue lipitor Assessment & Plan (05/23/2022 1:30 PM EDT): Continue statin Assessment & Plan (04/25/2022 5:05 PM EDT): Continue statin Hypertensive tevjxqjt42/20/2022 Assessment & Plan (05/08/2023 10:39 AM EDT): [...] and RTC 1 month Type 2 diabetes klapkekd43/20/2022 Assessment & Plan (05/23/2022 1:55 PM EDT): F/u with PCP Assessment & Plan (04/25/2022 5:05 PM EDT): F/u with PCP. Pure mlpnrxehixjjqebkuxuh26/15/201410/11/2023 Assessment & Plan (05/08/2023 10:44 AM EDT): Continue lipitor, LDL 106 therefore will add zetia to regime and repeat Lipid level in 3 months Diverticulitis of colon Encounters DateTypeDepartmentCare DwxxGtbemjneglu73/12/2025 1:45 PM ESTOffice Visit [facility] [place] [address] [place] [address] Katia Mcdaniel MD Nonrheumatic tricuspid valve regurgitation (Primary Dx); Coronary arteriosclerosis; H/O four vessel coronary artery bypass graft; Primary cjfwqyybvtlt93/14/2025[facility] [address] [place] [address] Evie Sexton MD Coronary artery disease [...] and Gender InformationValueDate Recorded Sex Assigned at YfbtkPudr87/07/2025 3:52 PM ESTLegal TnjNdog2601/25/2022 12:45 AM EDTGender OwoyxkciLlzi27/07/2025 3:52 PM ESTSexual OrientationHeterosexual or Rwyvztng48/07/2025 3:52 PM EST Last Filed Vital Signs Vital SignReadingTime TakenCommentsBlood Lnewqied544/9406/09/2025 1:51 PM EST Oruuq22678/12/2025 1:51 PM GDYLlfeupuwuhi61.9 ??C (98.4 ??F)12/26/2021 1:43 PM EDTRespiratory Xavx283611/05/2023 11:14 AM EDTOxygen Zaerczjwry92%06/09/2025 1:51 PM ESTInhaled Oxygen Concentration--Fawaba092 kg (229 lb)06/09/2025 1:51 PM EST Jrqzil302.3 cm (5' 9 )06/09/2025 1:51 PM ESTBody Mass Index33.8206/09/2025 1:51 PM EST Plan of Treatment Health MaintenanceDue DateLast DoneCommentsCT Lfluwxukadov1955FIT-DNA 1955FIT1955FOBT1955Medicare Annual Wellness (AWV)1955 Acptptykjdihn1955iabetes: Retinopathy Lxeleumxf08/19/1964Depression Kvplwhcdb88/19/1966Diabetes: Urine Protein Tobvkblpw36/19/1973Zoster Vaccines (1 of 2)Fall Risk Ieaisxkgt85/19/2019Diabetes: Hemoglobin A1C /OVID-19 Vaccine ( season)5Adult Tetanus , 05/04/20161876Uarteoxkgaw12olorectal Cancer Gkwejbdys60/04/2034Pneumococcal Vaccine: 50+ XibtnYjxlafsno78/08/2022Influenza FiflncwDzmjkqapu02/02/2025, 06/05/2022, 05/02/2018, Additional history existsHIB VaccinesAged OutNo longer eligible based on patient's age to complete this topic HPV VaccinesAged OutNo longer eligible based on patient's age to complete this topicIPV VaccinesAged OutNo longer eligible based on patient's age to complete this topicMeningococcal B VaccineAged OutNo longer eligible based on patient's age to complete this topicMeningococcal VaccineAged OutNo longer eligible based on patient's age to complete this topicRotavirus VaccinesAged OutNo longer eligible based on patient's age to complete this topic Procedures Procedure NamePriorityDate/TimeAssociated DiagnosisCommentsHEMOGLOBIN L1GHteydme 01/01/2022 6:33 PM EDT from Last 3 Months or Most Recently Relevant to Health Maintenance Results * (ABNORMAL) Hemoglobin A1c (01/01/2022 6:33 PM EDT)ComponentValueRef RangeTest MethodAnalysis TimePerformed AtPathologist SignatureHemoglobin A1C6.4(H)4.0 - 6.0 %LAB CONVERSIONSEstimated Average Xgmiihm352ghov/LLAB CONVERSIONSSpecimen (Source)Anatomical Location / LateralityCollection Method / VolumeCollection TimeReceived Time01/01/2022 6:33 PM EDT01/01/2022 6:38 PM EDT Narrative LAB CONVERSIONS - 01/02/2022 7:36 AM EDT Yes: Add to Previous draw if able Authorizing ProviderResult TypeResult StatusSarmed Puja COLON BLOOD ORDERABLES Final ResultPerforming OrganizationAddressCity/State/ZIP CodePhone Number LAB CONVERSIONS from Last 3 Months or Most Recently Relevant to Health [place] [address] Care Teams Team MemberRelationshipSpecialtyStart DateEnd Date Masha Ball MD [address] [facility] [facility]04/25/22
--- OUTSIDE RECORDS SUMMARY | 2025-07-10 23:15 | XMS_ITS | Clinical Summary ---
Author Organization [facility] Address [address] [place] [address] Care Team Providers Care Sugar Plantation Manager Name Role Phone Masha Ball MD Primary Care Provider [phone] Allergies No known active allergies Medications MedicationSigDispense QuantityRefillsLast FilledStart DateEnd DateStatus aspirin, enteric coated (ASPIRIN, ENTERIC COATED) 81 mg EC tablet Take 81 mg by mouth once daily.Active atorvastatin (LIPITOR) 80 mg tablet Take 80 mg by mouth.04/22/2024ctive clopidogrel (PLAVIX) 75 mg tablet Take 75 mg by mouth.04/16/2024ctive furosemide (LASIX) 20 mg tablet Take 20 mg by mouth every morning.Active glipiZIDE (GLUCOTROL) 10 mg tablet Take 1 tablet by mouth every afternoon.06/17/2024ctive latanoprost (XALATAN) 0.005 % ophthalmic solution Use 1 Drop in both eyes daily at bedtime.Active lisinopril (ZESTRIL) 40 mg tablet Take 1 tablet by mouth every morning.08/02/2022ctive metoprolol succinate ER (TOPROL XL) 100 mg TAKE 1 TABLET BY MOUTH IN THE MORNING *DO NOT CRUSH OR CHEW*Active Hzcxsfsjujqdt-Qxpmblil-Dzkpgo (MULTIVITAMIN 50 PLUS) tab Take 1 tablet by mouth every morning.Active omeprazole (PRILOSEC) 40 mg capsule Take 40 mg by mouth once daily.Active polyethylene glycol 3350 17 gram packet as needed.Active Tadalafil (CIALIS) 5 mg tablet Take 5 mg by mouth.Active Active Problems ProblemNoted DateDiagnosed DateRenal cystKidney stonesHiatal herniaGERD (gastroesophageal reflux disease)BPH (benign prostatic hyperplasia) DiverticulosisCAD (coronary artery disease)Hyperlipidemia Immunizations ImmunizationAdministration DatesNext Dueinfluenza (HD-IIV4) vaccine, age 65+ yr, high dose, quadrivalent, PF (FLUZONE HIGH-DOSE)06/05/2022influenza (IIV3) vaccine, trivalent, PF (AFLURIA, FLUARIX, FLULAVAL, FLUVIRIN, FLUZONE)05/15/2017 ,05/04/2016influenza (IIV4) vaccine, age 6 mo - 64 yr, quadrivalent, PF (AFLURIA, FLUARIX, FLULAVAL, FLUZONE)05/02/2018pneumococcal conjugate (PCV20) vaccine, 20 valent (PREVNAR 20)06/05/2022 Family History Medical HistoryRelationCommentsColon CancerNo Family History Social History Tobacco UseTypesPacks/DayYears UsedDateSmoking Tobacco: FormerCigarettes Smokeless Tobacco: Never Tobacco Cessation:Counseling Given: Not Answered Alcohol UseStandard Drinks/WeekCommentsYes0 (1 standard drink = 0.6 oz pure alcohol)SociallyArea Deprivation IndexAnswerDate RecordedNational Score (1-100), lower number is lower jgfp646607/06/2024State Score (1-10), lower number is lower dpcj77209/06/2023ata from: https://www.neighborhoodatlas.[facility].edu/. Last address used for lhevrrrxprx[address]07/06/2024Sex and Gender Information ValueDate RecordedSex Assigned at BirthNot on fileLegal GnoLzkk61/30/2024 12:24 PM EDTGender IdentityNot on fileSexual OrientationNot on file Last Filed Vital Signs Vital SignReadingTime TakenCommentsBlood Nanmgqoy815/6607/06/2024 3:24 PM EST Voyit575207/06/2024 3:24 PM ESTTemperature--Respiratory Rate--Oxygen Saturation-- Inhaled Oxygen Concentration--Efpzqh289.6 kg (243 lb 13.3 oz)07/06/2024 3:24 PM JKSFgstem201.7 cm (5' 8 )07/06/2024 3:24 PM ESTBody Mass Index37.0707/06/2024 3:24 PM EST Plan of Treatment Health MaintenanceDue DateLast DoneCommentsAbdominal Aortic Aneurysm Screening 4Annual PCP Team Chronic Disease Visit1972Anxiety Screening 1972Depression Trnzjxmrq32/19/1972Hepatitis C Hgxvtfjkt55/19/1972LDL Fwpkwaliwns44/19/1972DTaP,Tdap,Td Vaccine (1 - Tdap)1973Lipid Screening 1989CT Lskxmrhckuuk26/19/1999Cologuard (FIT-DNA)1999Colonoscopy 1999Colorectal Cancer Vtuculjmv34/19/1999Diabetes Cdqbnqfbb56/19/1999Fecal Occult Blood03/16/19992794Rekwseadfadbe00/19/1999Shingrix Vaccine (1 of 2)2004 Medicare Annual Wellness Visit02/26/2019Advance Directive Kfugtuztba64/01/2025 Covid-19 Vaccine ( season)2025Influenza Vaccine (#1)2025 06/05/2022, 05/02/2018, 05/15/2017, Additional history existsRSV Vaccine (1 - 1- dose 75+ series)2029Pneumococcal Vaccine: 50+Xwrrggimh69/08/2022 Insurance Care Teams Team MemberRelationshipSpecialtyStart DateEnd Date Masha Ball MD [address] [place] [address] PCP - [facility]State [facility] Tortlrys66/1/24
--- OUTSIDE RECORDS SUMMARY | 2025-07-10 23:15 | XMS_ITS | Clinical Summary ---
Author Organization [facility] Address [address] [place] [address] Care Team Providers Care Bakeshop Cleaner Name Role Phone Masha Ball MD Primary Care Provider [phone] Allergies No known active allergies Medications MedicationSigDispense [...] S/P CABG x 5 on 01/03/2022 Coronary mcqovylnpwhhzlcp00/31/2022 Overview (02/04/2023): Last Assessment & Plan: Continue GDMT- ASA, plavix, lipitor, toprol and lisinopril Zqkoxnk09/31/2022Benign prostatic omusmmrrkls03/20/2022Dyspnea on exertion 12/15/2021 Overview (02/04/2023): Last Assessment & Plan: Stable Dyspnea, tolerating cardiac rehab/exercise well Erectile wynlsspjhal73/20/9860Tbfkdtoyizccuc41/20/2022 Overview (02/04/2023): Last Assessment & Plan: Continue lipitor Type 2 diabetes ldqahquu01/20/2022 Overview (02/04/2023): Last Assessment & Plan: F/u with PCP Essential uhenepcihuvc92/15/2014Pure ltjqpvoanbeqkroccmsu74/15/2014 Diverticulitis of colon06/23/2013 Immunizations ImmunizationAdministration DatesNext DueInfluenza, [...] InformationValueDate RecordedSex Assigned at BirthNot on fileLegal LqyPxdx2710/10/2022 7:14 PM EDTGender Identity Not on fileSexual OrientationNot on file Last Filed Vital Signs Vital SignReadingTime TakenCommentsBlood Aprygoyw909/8604 12:00 PM EDT Pulse--Temperature--Respiratory Rate--Oxygen Saturation--Inhaled Oxygen Concentration--Nezbdf860 kg (245 lb)11/04/2017 12:00 PM SWNUzwnrq467.3 cm (5' 9 )11/04/2017 12:00 PM EDTBody Mass Index36.18011/04/2017 12:00 PM EDT Plan of Treatment Not on file Insurance Care Teams Team MemberRelationshipSpecialtyStart DateEnd Date Masha Ball MD [address] [place] [address] PCP - GeneralFamily Medicine01/15/23
[2025-07-11] VITALS (9 sets, daily range): BP systolic 119–141; BP diastolic 81–87; PULSE 66–93; O2SAT 94–96
--- NOTE | 2025-07-11 01:34 | ED.GENADUL1 ---
HPI HPI - General Adult General Chief complaint: Chest Pain Stated complaint: CHEST PAIN, SOB Time Seen by Provider: 07/10/25 22:17 Source: patient Mode of arrival: walk-in History of Present Illness HPI narrative: Patient is a 70-year-old male presenting to the emergency department for evaluation of chest pain. Patient states he was sitting and watching TV when he started experiencing right-sided chest heaviness. He denies any radiation of the pain to the back, arm, or jaw. It was not associate with exertion. It was not associated with nausea, vomiting, or diaphoresis. He states the pain was a 4/10 in severity, not particularly severe in nature. He states that since the onset of symptoms, it is spontaneously improved and is now a 2/10 in severity. He denies associated shortness of breath. No fevers, chills, or flulike symptoms. Related Data Home Medications ?Medication ?Instructions ?Recorded ?Confirmed ascorbic acid (vitamin C) 1,000 mg 1 g PO DAILY 11/27/24 12/10/24 capsule aspirin 81 mg tablet,delayed 81 mg PO DAILY 11/27/24 12/10/24 release atorvastatin 80 mg tablet 80 mg PO DAILY 11/27/24 12/10/24 carvedilol 6.25 mg tablet 6.25 mg PO Q12H 11/27/24 12/10/24 clopidogrel 75 mg tablet 75 mg PO DAILY 11/27/24 12/10/24 furosemide 20 mg tablet 20 mg PO DAILY 11/27/24 12/10/24 glipizide 5 mg tablet 5 mg PO DAILY 11/27/24 12/10/24 lisinopril 40 mg tablet 40 mg PO DAILY 11/27/24 12/10/24 omeprazole 40 mg capsule,delayed 40 mg PO DAILY 11/27/24 12/10/24 release tadalafil 5 mg tablet 5 mg PO DAILY 11/27/24 12/10/24 Allergies Allergy/AdvReac Type Severity Reaction Status Date / Time No Known Drug Allergies Allergy Verified 07/10/25 22:17 Opioid HPI Opioid Management Most Recent Opioid Data: Last Pain Scale 2 07/10/25, 23:03 Last ED Pain Assessment 07/10/25, 23:03 Review of Systems ROS Status of ROS 10 or more systems reviewed and unremarkable except as noted in history and below [facility] Medical History (Updated 07/11/25 @ 01:15 by Jaciel Hopkins DO) Colostomy in place ?Z93.3 - Colostomy status (ICD-10) Knee pain ?M25.569 - Pain in unspecified knee (ICD-10) Back pain ?M54.9 - Dorsalgia, unspecified (ICD-10) Arthritis ?M19.90 - Unspecified osteoarthritis, unspecified site (ICD-10) Snores ?R06.83 - Snoring (ICD-10) Sleep apnea ?G47.30 - Sleep apnea, unspecified (ICD-10) S/P extracorporeal shock wave therapy ?Z98.890 - Other specified postprocedural states (ICD-10) Fatigue ?R53.83 - Other fatigue (ICD-10) Diverticulosis ?K57.90 - Diverticulosis of intestine, part unspecified, without perforation or abscess without bleeding (ICD-10) Lower extremity edema ?R60.0 - Localized edema (ICD-10) Headache ?R51.9 - Headache, unspecified (ICD-10) Chest pain ?R07.9 - Chest pain, unspecified (ICD-10) Dyspnea on exertion ?R06.09 - Other forms of dyspnea (ICD-10) Diabetes ?E11.9 - Type 2 diabetes mellitus without complications (ICD-10) Hyperlipidemia ?E78.5 - Hyperlipidemia, unspecified (ICD-10) CAD (coronary artery disease) ?I25.10 - Atherosclerotic heart disease of [place] coronary artery without angina pectoris (ICD-10) Renal cyst ?N28.1 - Cyst of kidney, acquired (ICD-10) Erectile dysfunction ?N52.9 - Male erectile dysfunction, unspecified (ICD-10) Hiatal hernia ?K44.9 - Diaphragmatic hernia without obstruction or gangrene (ICD-10) GERD (gastroesophageal reflux disease) ?K21.9 - Gastro-esophageal reflux disease without esophagitis (ICD-10) BPH with obstruction/lower urinary tract symptoms ?N40.1 - Benign prostatic hyperplasia with lower urinary tract symptoms (ICD-10) ?N13.8 - Other obstructive and reflux uropathy (ICD-10) Kidney stones ?N20.0 - Calculus of kidney (ICD-10) Surgical History (Updated 11/27/24 @ 11:27 by Celia Burr NP) H/O hand surgery ?Z98.890 - Other specified postprocedural states (ICD-10) History of colon resection ?Z90.49 - Acquired absence of other specified parts of digestive tract (ICD-10) History of cholecystectomy ?Z90.49 - Acquired absence of other specified parts of digestive tract (ICD-10) History of hernia repair ?Z98.890 - Other specified postprocedural states (ICD-10) ?Z87.19 - Personal history of other diseases of the digestive system (ICD-10) S/P cataract extraction and insertion of intraocular lens ?Z98.49 - Cataract extraction status, unspecified eye (ICD-10) ?Z96.1 - Presence of intraocular lens (ICD-10) Hx of 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) ?Z95.1 - Presence of aortocoronary bypass graft (ICD-10) History of esophagogastroduodenoscopy (EGD) ?Z98.890 - Other specified postprocedural states (ICD-10) H/O colonoscopy ?Z98.890 - Other specified postprocedural states (ICD-10) Family History (Updated 11/27/24 @ 11:27 by Celia Burr NP) Other Family history of coronary artery disease Family history of diabetes mellitus Family history of heart disease Family history of hypertension Social History (Updated 12/10/24 @ 07:42 by Virgen Holliday) Within the past year, how often did you have a drink containing alcohol: monthly or less Smoking status: Former smoker Non-prescribed substance use: denies use Previous occupational history: retired Highest level of school completed/degree received: high school graduate Little interest or pleasure in doing things: not at all Feeling down, depressed, or hopeless: not at all Exam Narrative Exam Narrative: CONSTITUTIONAL: Well-appearing, answering questions and following commands appropriately SKIN: Was warm and dry. EYES: No conjunctival pallor. EARS, NOSE, THROAT: No JVD. RESPIRATORY: Clear to auscultation bilaterally, no wheezes, crackles, or stridor, no use of accessory muscles CARDIOVASCULAR: Normal rate and regular rhythm. There is no S3, S4, murmur, rub. Radial and dorsalis pedis pulses are 2+ and symmetrical. GASTROINTESTINAL: Abdomen was soft, non-tender, and non-distended. There is no guarding or rebound tenderness MUSCULOSKELETAL: There was no lower extremity edema, erythema, or tenderness. NEUROLOGIC: Patient is awake and alert. Facies were symmetrical. Constitutional Vital Signs, click to edit/add: Last Vital Signs Pulse 93 H 07/11/25 01:20 Resp 19 07/11/25 01:20 BP 127/81 07/11/25 01:00 Pulse Ox 96 07/11/25 01:20 O2 Del Method Room Air 07/10/25 22:15 Course Vital Signs Vital signs: Vital Signs Pulse Rate 79 07/10/25 22:15 Respiratory Rate 20 07/10/25 22:15 Blood Pressure 163/107 H 07/10/25 22:15 Pulse Oximetry 98 07/10/25 22:15 Oxygen Delivery Method Room Air 07/10/25 22:15 Pulse Rate 93 H 07/11/25 01:20 Respiratory Rate 19 07/11/25 01:20 Blood Pressure 127/81 07/11/25 01:00 Pulse Oximetry 96 07/11/25 01:20 Oxygen Delivery Method Room Air 07/10/25 22:15 Medical Decision Making [facility] Narrative Medical decision making narrative: Patient is a 70-year-old male, history significant for CAD s/p CABG in 2021, presented to the emergency department for evaluation of right-sided chest discomfort x 45 minutes. His vital signs on arrival are within normal limits. He is afebrile and hemodynamically stable. Patient appears comfortable and in no acute distress. He has a normal physical examination. Differential diagnosis includes ACS, pneumothorax, musculoskeletal pain, pneumonia, or other electrolyte/metabolic derangement. I did consider PE, however patient has a Well's Score of 0 making him low risk. Low concern for aortic dissection as he is not hypertensive, has equal pulses in all 4 extremities, and does not appear to be in significant discomfort. IV was established and laboratory studies were obtained. Laboratory studies were unremarkable. No significant electrolyte or metabolic derangement. No evidence of acute kidney injury. No anemia, leukocytosis, or thrombocytopenia. Initial and repeat 2-hour troponin were negative without a significant delta. Chest x-ray independently reviewed/interpreted by myself demonstrated no acute cardiopulmonary process. 12 Lead EKG: Sinus rhythm at a rate of 98 bpm. RSR prime configuration in the right sided leads consistent with RBBB. Left anterior fascicular block. No ST segment elevations. Prolonged QRS duration of 132 ms interval within normal limits. Unchanged compared to prior EKG from 05/15/2025. Final impression: Sinus rhythm with chronic bifascicular block. No evidence of acute myocardial ischemia. On reevaluation, patient appears comfortable. He states his chest pain is almost completely resolved. Given his negative workup with an unchanged EKG and normal serial troponins, I have low concern for acute coronary syndrome. Patient has a HEART Score of 5 (nonspecific repolarization disturbance, age greater than 65, greater than 3 risk factors/history of atherosclerotic disease) putting at moderate risk for MACE. 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 I gave him strict return precautions including recurrence of his symptoms, especially if it is associated with exertion, diaphoresis, nausea, or syncope. Patient feels comfortable being discharged home. He understands and agrees with the plan. FINAL IMPRESSION: #Acute chest pain, improved DISPOSITION: Discharged home CONDITION: Good Medical Records Medical records reviewed: Yes I reviewed the patient's medical records Lab Data Lab results reviewed: Yes I reviewed the patient's lab results Labs: Lab Results 07/10/25 07/11/25 Range/Units 22:30 00:40 WBC 7.5 (4.0-11.0) 10^3/uL RBC 4.84 (4.70-6.10) 10^6/uL Hgb 14.6 (14.0-18.0) g/dL Hct 41.1 L (42.0-54.0) % MCV 84.9 (80.0-94.0) fL MCH 30.2 (25.9-34.0) pg MCHC 35.5 H (29.9-35.2) g/dL RDW 12.2 (11.0-15.0) % Plt Count 221 (150-450) 10^3/uL MPV 9.7 (9.5-13.5) fL Neut % (Auto) 61.3 (43.0-75.0) % Lymph % (Auto) 26.1 (20.5-60.0) % [place] % (Auto) 8.7 (1.7-12.0) % Eos % (Auto) 3.1 (0.9-7.0) % Baso % (Auto) 0.5 (0.2-2.0) % Neut # (Auto) 4.6 (1.4-6.5) 10^3/uL Lymph # (Auto) 2.0 (1.2-3.8) 10^3/uL [place] # (Auto) 0.7 (0.3-0.8) 10^3/uL Eos # (Auto) 0.2 (0.0-0.7) 10^3/uL Baso # (Auto) 0.0 (0.0-0.1) 10^3/uL Abs Immat Gran (auto) 0.02 (0.00-0.03) 10^3/uL Imm/Tot Granulo (auto) 0.3 (0.0-0.5) % Sodium 128 L (136-145) mmol/L Potassium 3.4 L (3.5-5.1) mmol/L Chloride 95 L (98-107) mmol/L Carbon Dioxide 27.5 (21.0-32.0) mmol/L Anion Gap 8.9 BUN 9.0 (7.0-18.0) mg/dL Creatinine 1.14 (0.70-1.30) mg/dL Est GFR ( Amer) >60 (>=60 mL/min/1.73m^2) Est GFR (Non-Af Amer) >60 (>=60 mL/min/1.73m^2) BUN/Creatinine Ratio 7.9 Glucose 194 H (74-106) mg/dL Calcium 9.2 (8.5-10.1) mg/dL Troponin I High Sens 7.7 5.8 (4.0-76.1) pg/mL Imaging Data Chest x-ray: Attestation: I personally reviewed and interpreted this imaging study as follows: Radiologist's impression: ITS Impressions Chest X-Ray 07/10/25 22:26 IMPRESSION: No acute cardiopulmonary pathology. Impression dictated by: Oscar Ribeiro M.D. 07/10/2025 11:40 PM Dictation Location: [place] [id number] Electronically authenticated by: [id number] Y Date: 07/10/2025 23:40 ECG Data Attestation: I personally reviewed and interpreted this ECG as follows: Discharge Plan Discharge Chief Complaint: Chest Pain Clinical Impression: Chest pain Patient Disposition: Home, Self-Care Time of Disposition Decision: 01:15 Condition: Good Mode of Transportation: Private Vehicle Prescriptions / Home Meds: No Action aspirin 81 mg tablet,delayed release (DR/EC) 81 mg PO DAILY atorvastatin 80 mg tablet 80 mg PO DAILY carvedilol 6.25 mg tablet 6.25 mg PO Q12H clopidogrel 75 mg tablet 75 mg PO DAILY omeprazole 40 mg capsule,delayed release(DR/EC) 40 mg PO DAILY furosemide 20 mg tablet 20 mg PO DAILY lisinopril 40 mg tablet 40 mg PO DAILY glipizide 5 mg tablet 5 mg PO DAILY tadalafil 5 mg tablet 5 mg PO DAILY ascorbic acid (vitamin C) 1,000 mg capsule 1 g PO DAILY Print Language: Irish Instructions: Chest Pain (ED) Referrals: Masha Ball MD [Primary Care Provider, Family Practice] - 1 week
== END 2025-07-11 01:35 | disposition home or self-care (01) ==
PROVIDERS: Emergency Provider Student in an Organized Health Care Education/Training Program; PCP Family Medicine
DX: R07.9 Chest pain, unspecified (principal); Z87.891 Personal history of nicotine dependence; I25.10 Atherosclerotic heart disease of native coronary artery without angina pectoris; Z95.1 Presence of aortocoronary bypass graft
CPT/HCPCS: 36415; 71046; 80048; 84484; 85025; 93005; 99285